=== PATIENT | male | born 1945 | race African-American/Black ===

== ENCOUNTER 2020-01-03 17:22 | Emergency (ER) | payer MEDICARE, SELFPAY ==
[2020-01-03 17:54] VITALS: BP 171/80; PULSE 92; RESP 18; TEMP 36.4; O2SAT 97; BMI 29.1
[2020-01-03 21:57] VITALS: BP 168/83; PULSE 86; RESP 17; TEMP 36.6; O2SAT 99
--- NOTE | 2020-01-03 22:05 | ED.GENADULT ---
HPI - General Adult General Chief complaint: General Medical Stated complaint: high sugar level Time Seen by Provider: 01/03/20 22:05 Source: patient and hourly sign language interpreter Mode of arrival: ambulatory Limitations: no limitations History of Present Illness HPI narrative: 74 yo male with DM ate beans and rice states his blood sugar was high - not sure how high, he had no symptoms, he drank a bottle of water, took no DM medications and came to ED in ED BS 281 complaint: after eating rice and beans blood sugar was high at home Onset (ago): minute(s) Radiation: non-radiation Severity: mild Relieving factors: none Exacerbating factors: eating Associated symptoms: denies other symptoms Treatments prior to arrival: none Related Data Home Medications Medication Instructions Recorded Confirmed aspirin 1 tab PO DAILY 01/03/20 01/03/20 furosemide 1 tab PO DAILY 01/03/20 01/03/20 insulin aspart U-100 [Novolog 2 unit SUBCUT 01/03/20 Flexpen U-100 Insulin] latanoprost 1 drp OPHTHALMIC (EYE) BEDTIME 01/03/20 01/03/20 lisinopril 1 tab PO DAILY 01/03/20 01/03/20 omeprazole 1 cap PO DAILY 01/03/20 01/03/20 pioglitazone 1 tab PO DAILY 01/03/20 01/03/20 Allergies Allergy/AdvReac Type Severity Reaction Status Date / Time No Known Allergies Allergy Mild NONE Unverified 11/22/19 17:33 Review of Systems Review of Systems: Constitutional : No Weight loss, No Fever, No Chills ENT/Mouth : No sore throat, No Rhinorrhea Eyes: No Eye Pain, No Swelling, No Redness Cardiovascular : No Chest Pain, No SOB Respiratory : No Cough, No Sputum, No Wheezing Gastrointestinal : No Nausea, No Vomiting, No Diarrhea, No Constipation, No abdominal Pain Genitourinary : No Dysuria, No Urinary Frequency, No Hematuria, Musculoskeletal : No joint pain, No Myalgias, No Joint Swelling Skin : No Skin Lesions, No rash Neuro : No Weakness, No Numbness, No Dizziness, No Headache Psych : No Anxiety/Panic, No Depression All other systems reviewed and are negative PMFSH Past Medical History Medical History Diabetes 1.5, managed as type 2 High cholesterol Hypertension Social History Social History (Updated 01/03/20 @ 22:09 by Lata Chowdhury DO) Smoking Status: Never smoker Use of substances other than those prescribed or required for medical reasons: No Advance Directives: No Advance Directives Information Provided: Yes Physical Exam Vital Signs: Vital Signs: Vital Signs Temp Pulse Resp BP Pulse Ox 01/03/20 23:01 77 16 130/73 99 01/03/20 21:57 97.8 F 86 17 168/83 H 99 01/03/20 17:54 97.5 F 92 18 171/80 H 97 Body Mass Index 29.1 Appearance: Alert. Oriented X3. No acute distress. Eyes: Pupils equal, round and reactive to light. ENT: Pharynx normal. Neck: Normal inspection. Neck supple. CVS: Normal heart rate and rhythm. Pulses normal. Respiratory: No respiratory distress. Breath sounds normal. Abdomen: Soft and nontender. Skin: Skin warm and dry. Normal skin color. Normal skin turgor. Extremities: No lower extremity edema. No calf ttp Neuro: Oriented X 3. No motor deficit. No sensory deficit. Course Course Course Narrative: repeat BS in 260s stable for DC Medical Decision Making MDM Narrative Medical decision making narrative: 74 yo male with DM, HTN, HPL ate beans and rice - BS was high, took no medications had no symptoms came to ED and BS 281, denies any complaints or infectious symptoms, no CP/SOB at this time given no complaints and BS 281 will repeat BS in 1 hour if stable can be DC home Lab Data Labs: Lab Results 01/03/20 Range/Units 23:05 POC Glucose 262 H (60-115) mg/dL Discharge Plan Discharge Clinical Impression: Diabetes Qualifiers: Diabetes mellitus type: type 2 Diabetes mellitus technician terminal and repeater insulin use: with senior care use Diabetes mellitus complication status: with hyperglycemia Qualified Code(s): E11.65 - Type 2 diabetes mellitus with hyperglycemia Patient Disposition: Home, Self-Care Instructions: Type 2 Diabetes in the Older Adult (ED) Additional Instructions: your blood sugar on arrival to the ED was 281 on recheck it was Prescriptions: No Action latanoprost 0.005 % drops 1 drp ophthalmic (eye) BEDTIME RF: 0 lisinopril 20 mg tablet 1 tab PO DAILY RF: 0 pioglitazone 45 mg tablet 1 tab PO DAILY RF: 0 aspirin 81 mg tablet,delayed release (DR/EC) 1 tab PO DAILY RF: 0 omeprazole 20 mg capsule,delayed release(DR/EC) 1 cap PO DAILY RF: 0 furosemide 20 mg tablet 1 tab PO DAILY RF: 0 insulin aspart U-100 [Novolog Flexpen U-100 Insulin] 100 unit/mL (3 mL) insulin pen 2 unit subcut RF: 0 Print Language: Yakut
[2020-01-03 23:01] VITALS: BP 130/73; PULSE 77; RESP 16; O2SAT 99
[2020-01-03 23:09] LABS: Glucose, Whole Blood 262 mg/dL (60-115)
[2020-01-04 07:26] LABS: Glucose, Whole Blood 281 mg/dL (60-115)
== END 2020-01-03 23:52 | disposition home or self-care (01) ==
PROVIDERS: Emergency Provider Emergency Medicine; PCP Internal Medicine
DX: E11.65 Type 2 diabetes mellitus with hyperglycemia (principal); Z79.899 Other long term (current) drug therapy
CPT/HCPCS: 82947; 99283; 99284

== ENCOUNTER 2021-04-12 15:06 | Emergency (ER) | payer MEDICARE, SELFPAY ==
[2021-04-12 15:09] VITALS: BP 125/55; PULSE 96; RESP 20; TEMP 37; O2SAT 97; BMI 29.2
--- NOTE | 2021-04-12 15:24 | ED_ITS ---
HPI - General Adult General Chief complaint: General Medical Stated complaint: flu symptoms, covid? Time Seen by Provider: 04/12/21 15:24 Source: patient and family (daughter) Mode of arrival: ambulatory Limitations: language barrier History of Present Illness HPI narrative: Patient is a 75 year old male presenting to the emergency department today feeling generally unwell. Patient's daughter states that the patient has been feeling generally unwell since the rest of the family tested positive for COVID- 19, 2 weeks ago. Patient's daughter states that she would like her father to be tested for COVID-19 and the flu. Patient denies any current complaints including any dizziness, lightheadedness, abdominal pain, nausea, vomiting, fever, chills, blurry vision, double vision, loss of vision, chest pain, difficulty breathing, shortness of breath, back pain, night sweats, pain with urination, increased urinary frequency, increased urinary urgency, blood in his urine or stool, syncope or a near syncopal episode, recent trauma or falls, bowel incontinence, bladder incontinence, bowel retention, bladder retention, or any other complaints at this time. Onset (ago): day(s) Related Data Home Medications Medication Instructions Recorded Confirmed aspirin 81 mg tablet,delayed 1 tab PO DAILY 01/03/20 01/03/20 release furosemide 20 mg tablet 1 tab PO DAILY 01/03/20 01/03/20 insulin aspart U-100 100 2 unit SUBCUT 01/03/20 unit/mL (3 mL) subcutaneous pen (Novolog Flexpen U-100 Insulin aspart) latanoprost 0.005 % eye 1 drp OPHTHALMIC (EYE) 01/03/20 01/03/20 drops BEDTIME lisinopril 20 mg tablet 1 tab PO DAILY 01/03/20 01/03/20 omeprazole 20 mg 1 cap PO DAILY 01/03/20 01/03/20 capsule,delayed release pioglitazone 45 mg tablet 1 tab PO DAILY 01/03/20 01/03/20 Allergies Allergy/AdvReac Type Severity Reaction Status Date / Time No Known Allergies Allergy Mild NONE Unverified 11/22/19 17:33 Review of Systems Verdana 4l Constitutional: Verdana 4d Verdana 4d Constitutional: Verdana 4d Reports no additional constitutional complaints, Denies chills, Denies fever(s) and Denies night sweats Verdana 4l Eyes: Verdana 4d Verdana 4d Eyes: Verdana 4d Reports no additional eye complaints, Denies blurry vision, Denies change in vision, Denies diplopia, Denies eye discharge, Denies loss of vision and Denies eye pain Verdana 4l ENT: Verdana 4d Denies dizziness Verdana 4l Cardiovascular: Verdana 4d Verdana 4d Cardiovascular: Verdana 4d Reports no additional cardiovascular complaints, Denies chest pain, Denies lightheadedness, Denies Loss of Consciousness and Denies dyspnea Verdana 4l Respiratory: Verdana 4d Verdana 4d Respiratory: Verdana 4d Reports no additional respiratory complaints and Denies dyspnea Verdana 4l Gastrointestinal: Verdana 4d Verdana 4d Gastrointestinal: Verdana 4d Reports no additional gastrointestinal complaints, Denies abdominal pain, Denies melena, Denies hematochezia, Denies change in bowel habits and Denies change in stool character Verdana 4l Genitourinary: Verdana 4d Verdana 4d Genitourinary: Verdana 4d Reports no additional male genitourinary complaints, Denies hematuria, Denies oliguria, Denies difficulty urinating, Denies dysuria, Denies urinary frequency, Denies urinary hesitancy, Denies urinary incontinenceincontinence and Denies urinary urgency Musculoskeletal: Musculoskeletal: Reports no additional musculoskeletal complaints, Denies numbness and Denies tingling Neurologic: Denies dizziness, Denies loss of vision, Denies numbness and Denies tingling Psychiatric: Psychiatric: Reports no additional psychiatric complaints Endocrine: Endocrine: Reports no additional endocrine complaints Hematologic/Lymphatic: Hematologic/Lymphatic: Reports no additional hematologic/lymphatic complaints Allergic/Immunologic: Allergic/Immunologic: Reports no additional allergic/immunologic complaints [facility] Past Medical History Attestation statement: The following information was validated with the patient. Source: old records reviewed Medical History Diabetes 1.5, managed as type 2 High cholesterol Hypertension Social History Social History Advance Directives: No Advance Directives Information Provided: No Physical Exam Verdana 4l Vital Signs: Verdana 4d Verdana 4d Vital Signs: Verdana 4d Verdana 4Bd Last Vital Signs Verdana 4d Corsetier New 4d Corsetier New 4d Temp 98.6 F 04/12/21 15:09 Corsetier New 4d Pulse 96 04/12/21 15:09 Corsetier New 4d Resp 20 04/12/21 15:09 BP 125/55 L 04/12/21 15:09 Pulse Ox 97 04/12/21 15:09 BMI result Body Mass Index 29.2 Const: General: cooperative, no acute distress, alert and awake Nutritional Appearance: well nourished Orientation/consciousness: patient oriented x3 Limitations: no limitations HENMT: Head: Yes normal to inspection and Yes atraumatic Ears: hearing grossly normal bilaterally and external ears normal General nose exam: Normal external nose present, no nasal discharge noted and no epistaxis Face and sinus: Yes normal facial exam, No abrasion and No laceration Mouth: Normal oral and palatal mucosa present, no drooling and no muffled voice Eyes: General: appearance normal, both eyes and all related structures Periorbital: periorbital findings normal Eyelids: Yes eyelids normal Conjunctivae: conjunctivae normal Pupils: Equal, round and reactive pupils present EOM: EOMs intact bilaterally Neck: Neck: Yes normal visual inspection, Yes full ROM and Yes no lymphadenopathy Chest: Chest palpation & inspection: normal inspection of the chest Resp: Effort & Inspection: normal respiratory effort and able to speak in complete sentences Auscultation: clear to auscultation bilaterally Cardio: Rate: regular rate Rhythm: regular rhythm GI: Inspection: Yes normal to inspection Neuro: General: patient oriented x3 and moves all extremities Cranial nerves: Yes Equal, round and reactive pupils present Cognition (Neuro): normal cognition Motor exam (neuro): 5/5 motor strength present throughout Sensory Exam: Normal double simultaneous stimulation for sensation Coordination: [id number] test normal Extrem: General: Yes normal to inspection, Yes full ROM and Yes capillary refill normal Psych: Appearance: grossly normal Mental Status: mental status grossly normal Affect: normal affect Attitude: cooperative Thought process: Normal thought process present Thought content: Normal thought content present I nsight: Good insight present (Psych) NIH Stroke Scale Internal: Initial- Upon Arrival Time: 15:24 Level of Consciousness: Alert Level of Consciousness Questions: Answers both questions correctly Level of Consciousness Commands: Performs both tasks correctly Best Gaze: Normal Visual: No visual loss Facial Palsy: Normal Motor Arm (Right): No drift Motor Arm (Left): No drift Motor Leg (Right): No drift Motor Leg (Left): No drift Limb Ataxia: Absent Sensory: Normal Best Language: No aphasia Dysarthia: Normal Extinction and Inattention: No abnormality Score: 0 Medical Decision Making MDM Narrative Medical decision making narrative: Patient is a 75 year old male presenting to the emergency department today with his daughter for COVID-19 and influenza testing. Patient's physical exam was unremarkable. Patient's rapid COVID-19 and Influenza tests were negative. I explained my physical exam findings as well as all test results to the patient and the patient's daughter. I answered all questions asked by the patient and th e patient's daughter. I stressed the importance of the patient taking his medication as prescribed. I stressed the importance of the patient following up with his primary care provider. I stressed the importance of the patient returning to the emergency department immediately if his symptoms were to worsen or if he were to develop any dizziness, shortness of breath, difficulty breathing, chest pain, blurry vision, loss of vision, nausea, vomiting, abdominal pain, fever, chills, back pain, or any other complaints. Patient and the patient's daughter verbalized agreement and understanding with this treatment plan and discharge. Differential Diagnosis Differential Diagnosis: COVID-19, influenza, viral infection Medical Records Medical records reviewed: Yes I reviewed the patient's medical records. Lab Data Lab results reviewed: Yes I reviewed the patient's lab results. Labs: Lab Results 04/12/21 04/12/21 Range/Units 15:14 15:55 COVID-19 (GENE) Negative (Negative) COVID-19 Clin Com See Note Influenza Type A (BENJAMÍN) Negative (Negative) Influenza Type B (BENJAMÍN) Negative (Negative) Influenza A & B Note See Note Discharge Plan Discharge Clinical Impression: Viral illness Patient Disposition: Home, Self-Care Instructions: Viral Syndrome (ED) Prescriptions: No Action latanoprost 0.005 % drops 1 drp ophthalmic (eye) BEDTIME 0RF lisinopril 20 mg tablet 1 tab PO DAILY 0RF pioglitazone 45 mg tablet 1 tab PO DAILY 0RF aspirin 81 mg tablet,delayed release (DR/EC) 1 tab PO DAILY 0RF omeprazole 20 mg capsule,delayed release(DR/EC) 1 cap PO DAILY 0RF furosemide 20 mg tablet 1 tab PO DAILY 0RF insulin aspart U-100 [Novolog Flexpen U-100 Insulin] 100 unit/mL (3 mL) insulin pen 2 unit subcut 0RF Referrals: Charlene Delgado MD [Primary Care Provider] - 2 days Interventions: ED Discharge Assessment Last Done: 04/12/21 17:20 Discharge Date/Time: 04/12/21 17:20 Print Language: Russian
[2021-04-12 15:34] LABS: COVID-19 Test Negative (Negative)
[2021-04-12 16:18] LABS: Influenza A Negative (Negative); Influenza B2 Negative (Negative)
== END 2021-04-12 17:20 | disposition home or self-care (01) ==
PROVIDERS: Physician Assistant Medical; Emergency Provider Emergency Medicine; PCP Internal Medicine
DX: B34.9 Viral infection, unspecified (principal); Z20.822 Contact with and (suspected) exposure to COVID-19; Z79.899 Other long term (current) drug therapy
CPT/HCPCS: 87502; 87635; 99283

== ENCOUNTER 2021-04-13 18:30 | Inpatient (IN) | payer MEDICARE, SELFPAY ==
--- NOTE | 2021-04-13 | ECG_ITS ---
Test Reason : CHES PAIN Blood Pressure : / mmHG Vent. Rate : 099 BPM Atrial Rate : 099 BPM P-R Int : 134 ms QRS Dur : 110 ms QT Int : 320 ms P-R-T Axes : 040 -09 029 degrees QTc Int : 410 ms Normal sinus rhythm Incomplete left bundle branch block Borderline ECG When compared to the previous EKG of No significant changes seen Referred By: Ceci Robles Electronically Signed By:Maximiliano Mae
--- NOTE | ~2021-04-13 | XR_ITS ---
EXAMINATION: XR CHEST CLINICAL INFORMATION: Chest pain and shortness of breath COMPARISON: None TECHNIQUE: Frontal view of the chest was obtained. FINDINGS: No significant abnormality is noted involving the heart, lungs, mediastinum, bony thorax or soft tissues. Some minimal left basilar atelectasis is present. XR/XR chest 1V IMPRESSION: No acute intrathoracic disease. Minimal left basilar atelectasis.
--- NOTE | ~2021-04-13 | CT_ITS ---
EXAMINATION: CT ABDOMEN AND PELVIS WITHOUT CONTRAST CLINICAL INFORMATION: Abdominal pain and distention. COMPARISON: CT scan of the abdomen and pelvis dated 04/14/2021. TECHNIQUE: Multidetector volumetric imaging was performed from the superior aspect of the liver through the pubic symphysis. Sagittal and coronal reformatted images were obtained on the technologist workstation. This CT examination was performed using dose optimization techniques as appropriate, variously including the following: *Automated exposure control *Adjustment of mA and/or kV according to patient size (this includes techniques or standardized protocols for targeted exams where dose is matched to indication/reason for exam; i.e. extremities or head) *Use of iterative reconstruction technique DLP: 677 mGy-cm. FINDINGS: LUNG BASES: Small left-sided pleural effusion again seen. Small right pleural effusion noted. Associated dependent atelectasis in both lower lobes noted. Three-vessel coronary artery calcifications partially included. LIVER, GALLBLADDER, AND BILIARY TREE: The liver is normal in size and attenuation. There is asymmetric mild enlargement of the left lobe of the liver and the caudate lobe with atrophy of the right lobe No focal hepatic lesion on noncontrast imaging. No biliary ductal dilatation is present. The gallbladder is unremarkable with no evidence of radiopaque gallstones, gallbladder wall thickening, or obvious pericholecystic inflammatory changes. PANCREAS: Diffusely atrophic and otherwise unremarkable. SPLEEN, ADRENAL GLANDS: A 1.6 cm right adrenal low-attenuation masses again seen, unchanged, consistent with a benign lipid rich adenoma. Left adrenal gland normal. Spleen unremarkable. KIDNEYS AND URETERS: The left kidney is asymmetrically slightly larger than the right with minimal left-sided hydronephrosis seen. There is asymmetric dilatation of the left ureter down to the ureterovesical junction, similar to prior exam. No left renal or ureteral calculi are noted. There are 2 nonobstructing upper pole right renal calculi, measuring less than 2 mm in size, unchanged. No right-sided hydronephrosis or hydroureter seen. Small locules of air are seen within the left renal pelvis and upper and mid pole left renal calyx. Mild bilateral perinephric stranding. BLADDER: Small locule of nondependent free air seen within the bladder lumen. Diffuse mild bladder wall thickening is seen with more focal nodular thickening along the posterior and left lateral margin of the bladder base approaching close to the right ureterovesical junction and extending to and beyond the left ureterovesical junction, raising the suspicion of an infiltrative bladder neoplasm. Similar findings were noted previously. PELVIC VISCERA: Unremarkable. GASTROINTESTINAL TRACT: The small and large bowel are unremarkable. The appendix is unremarkable. ABDOMINAL WALL: Small fat-containing umbilical hernia. LYMPH NODES, VASCULAR: No adenopathy. Abdominal aorta normal in caliber with mild atherosclerotic calcification seen extending into the iliac vessels. OSSEOUS STRUCTURES: There is severe degenerative disc disease at L1 to and L4-L5 and moderate degenerative disc disease at L5-S1. CT/CT abdomen pelvis wo con IMPRESSION: 1. Persistent mild left-sided hydroureteronephrosis is seen related to obstruction at the bladder level by the suspected bladder neoplasm along the posterior and left lateral margin of the bladder base. Urologic consultation is requested. 2. Nonobstructing upper pole right renal calculi. No right-sided hydroureteronephrosis. 3. Incidental finding of a stable right adrenal mass, likely an adrenal adenoma. 4. Small bilateral pleural effusions and associated bibasilar atelectasis. 5. Severe coronary artery calcifications.
--- NOTE | ~2021-04-13 | XR_ITS ---
EXAMINATION: XR CHEST CLINICAL INFORMATION: Shortness of breath COMPARISON: Previous chest x-ray April 2021 TECHNIQUE: Frontal view of the chest was obtained. FINDINGS: The cardiac silhouette is not appear enlarged. The lung volumes are low. There is question of pulmonary venous redistribution and increased perihilar markings versus changes related to low lung volumes. There is new blunting at the right lateral costophrenic angle suggestive of a new small right pleural effusion. There are degenerative changes of the spine. XR/XR chest 1V IMPRESSION: Low lung volumes. Question mild CHF versus changes due to low lung volumes.
--- NOTE | ~2021-04-13 | XR_ITS ---
EXAMINATION: XR ABDOMEN KUB CLINICAL INDICATION: Abdomen pain. Bloating COMPARISON: None TECHNIQUE: AP view of the abdomen. FINDINGS: No suspicious calcification. Moderate to marked gaseous distention throughout loops of large and small bowel to the level of the distal colon. No convincing bowel wall thickening or pneumatosis. No obvious pneumoperitoneum on this supine view. No upper or mid abdominal mass or collection demonstrated. Rounded density in the pelvis may be related to the urinary bladder. XR/XR KUB IMPRESSION: Nonspecific but unlikely to be obstructed gaseous distention.
--- NOTE | ~2021-04-13 | CT_ITS ---
EXAMINATION: CT ABDOMEN AND PELVIS WITHOUT CONTRAST CLINICAL INFORMATION: Acute kidney injury, question obstruction COMPARISON: None TECHNIQUE: Multidetector volumetric imaging was performed from the superior aspect of the liver through the pubic symphysis. Sagittal and coronal reformatted images were obtained on the technologist's workstation. This CT examination was performed using dose optimization techniques as appropriate, variously including the following: *Automated exposure control *Adjustment of mA and/or kV according to patient size (this includes techniques or standardized protocols for targeted exams where dose is matched to indication/reason for exam; i.e. extremities or head) *Use of iterative reconstruction technique DLP: 640 mGy-cm FINDINGS: LUNG BASES: Trace left pleural effusion. Bibasilar atelectasis. LIVER, GALLBLADDER, AND BILIARY TREE: The liver is normal in size, shape, and attenuation. No focal hepatic lesion or biliary ductal dilatation is present. The gallbladder is unremarkable with no evidence of radiopaque gallstones, gallbladder wall thickening, or obvious pericholecystic inflammatory changes. PANCREAS: Unremarkable. SPLEEN: Unremarkable. ADRENAL GLANDS: A 1.8 cm right adrenal nodule measures less than 10 Hounsfield units in density, most consistent with an adenoma. Left adrenal gland is unremarkable. KIDNEYS AND URETERS: There is mild bilateral hydroureteronephrosis with no obstructing calculus seen. Bilateral perinephric stranding is noted. A few tiny calculi are present in the right upper pole. Punctate calculus noted in the mid left kidney. BLADDER: Partially distended and suboptimally assessed without intravenous contrast. There is suggestion of some asymmetric wall thickening along the left posterolateral margin of the bladder including at the ureterovesicular junction and approaching the right ureterovesicular junction (image 81/100), for which a mass is a possibility. GASTROINTESTINAL TRACT: Assessment for wall thickening in some segments of the colon is limited due to luminal collapse, though no significant pericolonic stranding is seen to strongly suggest a colitis. No evidence of bowel obstruction. The appendix is unremarkable. No free fluid or free air is seen. ABDOMINAL WALL: Small fat-containing umbilical hernia. LYMPH NODES: Normal. VASCULAR: Scattered vascular calcifications are present. PELVIC VISCERA: Unremarkable. OSSEOUS STRUCTURES: Scattered degenerative changes are present in the spine. CT/CT abdomen pelvis wo con IMPRESSION: 1. Appearance of the bladder concerning for asymmetric wall thickening along the left posterolateral margin, raising suspicion for a mass. Further evaluation with cystoscopy is recommended. 2. Mild bilateral hydroureteronephrosis. No obstructing calculus identified. 3. Trace left pleural effusion. This critical result was discussed with Dr. Zoe Gilman on 04/14/2021 4:22 AM, and it was ascertained that the content and urgency of the report was understood at the time of direct communication.
--- NOTE | ~2021-04-13 | FL_ITS ---
EXAMINATION: XR FL WITH IMAGES CLINICAL INFORMATION: Cysto-retrograde with bilateral stent placement. COMPARISON: CT abdomen and pelvis 04/18/2021. TECHNIQUE: Fluoroscopy performed by Dr. Camden Winchester. Fluoroscopy Time: 35.7 seconds. DAP: 14.77 mGy. Images: 2. FINDINGS: Imaging shows contrast in the right pelvocalyceal system with a single image taken over the left renal fossa with the proximal end of a probable stent. FL/FL guidance in OR IMPRESSION: Fluoroscopy and spot films provided cysto-retrograde.
[2021-04-13 18:50] VITALS: BP 140/78; PULSE 108; RESP 19; TEMP 37.6; O2SAT 97; BMI 27.8
[2021-04-13 22:08] LABS: Hematocrit 33.1 % (42.0-52.0); Hemoglobin 11.4 g/dl (14.0-18.0); Mean Corpuscular HGB Conc 34.4 g/dl (31.0-36.0); Mean Corpuscular Hemoglobin 31.2 pg (27.0-33.0); Mean Corpuscular Volume 90.7 fL (80.0-98.0); Mean Platelet Volume 10.6 fL (9.4-12.4); Red Blood Count 3.65 X10*6/uL (4.60-5.80); Red Cell Distribution Width 14.1 % (11.0-16.0); White Blood Count 11.1 X10*3/uL (4.8-10.8)
[2021-04-13 22:31] LABS: Lymphocytes Absolute Manual 0.4 X10*3/uL (1.2-4.9); Lymphocytes Percent Manual 4 % (20-40); Monocytes Percent Manual 18 % (2-11); Neutrophils Percent Manual 78 % (45-73); Platelet Estimate NORMAL (NORMAL); RBC Morphology NORMAL
[2021-04-13 22:32] LABS: Platelet Morphology Comment NORMAL; Troponin-I High Sensitivity 20.9 ng/L (<3.5-35.0)
[2021-04-13 22:33] LABS: Neutrophils Absolute Manual 8.7 X10*3/uL (2.0-8.3)
[2021-04-13 22:39] LABS: Anion Gap 18 (12-20); Blood Urea Nitrogen 105 mg/dL (9-16); Calcium 8.5 mg/dL (8.4-10.2); Carbon Dioxide 22 mmol/L (22-29); Chloride 97 mmol/L (96-108); Creatinine Clr Calc Pharmacy 15.4; Estimated Glomerular Filt Rate 15; Glucose Random 386 mg/dL (60-115); Potassium 4.9 mmol/L (3.3-5.1); Sodium 132 mmol/L (135-145)
[2021-04-13 23:58] VITALS: BP 135/76; PULSE 113; RESP 18; O2SAT 97
--- NOTE | 2021-04-14 00:01 | ED_ITS ---
HPI - Chest Pain General Chief Complaint: Chest Pain Stated Complaint: chest pain Time Seen by Provider: 04/14/21 00:29 Source: patient Mode of arrival: ambulatory Limitations: language barrier History of Present Illness HPI narrative: 75-year-old male presents with 1 week of chest pain radiating to his back and ne ck for the past 2 weeks. States that it is squeezing pain and is 10/10. Also complains of bilateral lower abdominal pain for approximately 2 weeks with intermittent nausea. Does not report any fevers, chills, nausea vomiting or diarrhea. MD complaint: chest pain Onset (ago): week(s) (2) Timing of current episode: episodic Prior episodes: Yes Onset: during rest Pain location: substernal Pain radiation: back and neck Severity: severe Pain scale (0-10): 10 Quality: tightness Relieving factors: nothing Associated symptoms: nausea Treatment prior to arrival: none Risk Factors Coronary artery disease risk factors: diabetes and hypertension Thoracic aortic dissection risk factors: longstanding hypertension Related Data Home Medications Medication Instructions Recorded Confirmed aspirin 81 mg tablet,delayed 1 tab PO DAILY 01/03/20 01/03/20 release furosemide 20 mg tablet 1 tab PO DAILY 01/03/20 01/03/20 insulin aspart U-100 100 unit/mL 2 unit SUBCUT 01/03/20 (3 mL) subcutaneous pen (Novolog Flexpen U-100 Insulin aspart) latanoprost 0.005 % eye drops 1 drp OPHTHALMIC (EYE) BEDTIME 01/03/20 01/03/20 lisinopril 20 mg tablet 1 tab PO DAILY 01/03/20 01/03/20 omeprazole 20 mg capsule,delayed 1 cap PO DAILY 01/03/20 01/03/20 release pioglitazone 45 mg tablet 1 tab PO DAILY 01/03/20 01/03/20 Allergies Allergy/AdvReac Type Severity Reaction Status Date / Time No Known Allergies Allergy Mild NONE Verified 04/13/21 18:49 Review of Systems Review of Systems: Constitutional: No Weight loss, No Fever, No Chills, No Night Sweats, No Fatigue, No Malaise ENT/Mouth: No Hearing loss, No Ear Pain, No Nasal Congestion, No Sinus Pain, No Hoarseness, No sore throat, No Rhinorrhea, No Swallowing Difficulty Eyes: No Eye Pain, No Swelling, No Redness, No Foreign Body, No Discharge, No Vision Changes Cardiovascular: Positive Chest Pain, no SOB, no Dyspnea on Exertion, No Orthopnea, No Edema, No Palpitations Respiratory: No Cough, No Sputum, No Wheezing, No Smoke Exposure, No Dyspnea Gastrointestinal: Positive Nausea, No Vomiting, No Diarrhea, positive abdominal Pain, No Hematochezia, No Melena Genitourinary: No irregular bleeding, No Dysuria, No Urinary Frequency, No Hematuria, No Urinary Incontinence, No Urgency, No Flank Pain, No Urinary Flow Changes, No Hesitancy Musculoskeletal: No joint pain, No Myalgias, No Joint Swelling Skin: No Skin Lesions, No rash Neuro: No Weakness, No Numbness, No Paresthesias, No Loss of Consciousness, No Dizziness, No Headache Psych: No Anxiety/Panic, No Depression, No SI/HI/AH/VH Heme/Lymph: No Bruising, No Bleeding,No Lymphadenopathy Endocrine: No Polyuria, No Polydipsia, No Temperature Intolerance Yes all other systems are reviewed and are negative [facility] Past Medical History Attestation statement: The following information was validated with the patient. Source: old records reviewed Medical History Diabetes 1.5, managed as type 2 High cholesterol Hypertension Social History Social History Advance Directives: No Physical Exam Vital Signs: Vital Signs: Last Vital Signs Temp 99.7 F 04/13/21 18:50 Pulse 103 H 04/14/21 01:41 Resp 26 H 04/14/21 01:41 BP 111/62 04/14/21 01:41 Pulse Ox 97 04/13/21 23:58 BMI result Body Mass Index 27.8 Appearance: Alert. Oriented X3. Moderate distress. Eyes: Pupils equal, round and reactive to light. EOMI. Sclera nonicteric. ENT: Pharynx normal. Dry mucous membranes. Neck: Normal inspection. Neck supple. CVS: Tachycardic heart rate and rhythm. AFib RVR Respiratory: No respiratory distress. Breath sounds normal. Abdomen: Soft and bilateral CVA tenderness. No tenderness to abdominal palpation. Skin: Skin warm and dry. Normal skin color. Normal skin turgor. Extremities: No lower extremity edema. Gait well-balanced well coordinated. Neuro: No motor deficit. No sensory deficit. Cranial nerves 2-12 intact. Course Course Course Narrative: 75-year-old male presents with chest pain radiating to the back of his neck for approximately 2 weeks. EKG completed while he was in the emergency department waiting room which indicated a normal sinus rhythm with left bundle-branch block at a rate of 99. Upon his presentation to the emergency department room, patient noted to be in AFib with RVR, repeat EKG ordered at this time. 00:35 repeat EKG indicates AFib with RVR. Lopressor 5 IV push ordered 00:50 repeat dose of Lopressor 5 mg IV push. Repeat EKG ordered indicates a flutter with variable AV block. Troponin is pending. Corrected sodium is 137, BUN 105, creatinine 3.99. Will continue to resuscitate with fluids for YESSENIA. Order for abdominal CT to rule out obstruction versus pyelo. Discussion with hospitalist, plan of care is to admit for YESSENIA and AFib. interpreter for the deaf and Sid utilized for all correspondence. Consultations Consultation #1: Andrea Time: 01:59 MDM - Chest Pain MDM Narrative Medical decision making narrative: AFib, YESSENIA, UTI, AAA Differential Diagnosis Differential diagnosis: Likely stable angina, unstable angina pectoris, atypical chest pain, st elevation myocardial infarction, costochondritis and chest pain Medical Records Data Attestation: I reviewed the patient's medical records. Lab Data Attestation: I reviewed the patient's lab results. Result diagrams: 04/13/21 22:04 04/13/21 22:04 Labs: Lab Results 04/13/21 04/13/21 04/13/21 Range/Units 22:04 22:04 22:04 WBC 11.1 H (4.8-10.8) X10*3/uL RBC 3.65 L (4.60-5.80) X10*6/uL Hgb 11.4 L (14.0-18.0) g/dl Hct 33.1 L (42.0-52.0) % MCV 90.7 (80.0-98.0) fL MCH 31.2 (27.0-33.0) pg MCHC 34.4 (31.0-36.0) g/dl RDW 14.1 (11.0-16.0) % Plt Count TNP MPV 10.6 (9.4-12.4) fL Immature Gran % (Auto) Cancelled Neut % (Auto) Cancelled Lymph % (Auto) Cancelled [place] % (Auto) Cancelled Eos % (Auto) Cancelled Baso % (Auto) Cancelled Lymph # (Auto) Cancelled [place] # (Auto) Cancelled Eos # (Auto) Cancelled Baso # (Auto) Cancelled Abs Immat Gran (auto) Cancelled Absolute Neuts (auto) Cancelled Absolute Nucleated RBC 0.000 (0.0-0.012) X10*3/uL Nucleated RBC % (auto) 0.0 (0.0-0.2) /100WBC Neutrophils % (Manual) 78 H (45-73) % Lymphocytes % (Manual) 4 L (20-40) % Monocytes % (Manual) 18 H (2-11) % Abs Neuts (Manual) 8.7 H (2.0-8.3) X10*3/uL Lymphocytes # (Manual) 0.4 L (1.2-4.9) X10*3/uL Monocytes # (Manual) 2.0 H (0.1-1.2) X10*3/uL Platelet Estimate NORMAL (NORMAL) Plt Morphology Comment NORMAL RBC Morphology NORMAL Sodium 132 L (135-145) mmol/L Potassium 4.9 (3.3-5.1) mmol/L Chloride 97 (96-108) mmol/L Carbon Dioxide 22 (22-29) mmol/L Anion Gap 18 (12-20) BUN 105 H (9-16) mg/dL Creatinine 3.99 H (0.5-1.4) mg/dL Estim Creat Clear Calc 15.4 Estimated GFR 15 Random Glucose 386 H* (60-115) mg/dL Calcium 8.5 (8.4-10.2) mg/dL Magnesium (1.6-2.6) mg/dL Troponin I High Sens 20.9 (<3.5-35.0) ng/L B-Natriuretic Peptide 110 H (<100) pg/mL 04/14/21 04/14/21 Range/Units 00:19 00:19 WBC (4.8-10.8) X10*3/uL RBC (4.60-5.80) X10*6/uL Hgb (14.0-18.0) g/dl Hct (42.0-52.0) % MCV (80.0-98.0) fL MCH (27.0-33.0) pg MCHC (31.0-36.0) g/dl RDW (11.0-16.0) % Plt Count MPV (9.4-12.4) fL Immature Gran % (Auto) Neut % (Auto) Lymph % (Auto) [place] % (Auto) Eos % (Auto) Baso % (Auto) Lymph # (Auto) [place] # (Auto) Eos # (Auto) Baso # (Auto) Abs Immat Gran (auto) Absolute Neuts (auto) Absolute Nucleated RBC (0.0-0.012) X10*3/uL Nucleated RBC % (auto) (0.0-0.2) /100WBC Neutrophils % (Manual) (45-73) % Lymphocytes % (Manual) (20-40) % Monocytes % (Manual) (2-11) % Abs Neuts (Manual) (2.0-8.3) X10*3/uL Lymphocytes # (Manual) (1.2-4.9) X10*3/uL Monocytes # (Manual) (0.1-1.2) X10*3/uL Platelet Estimate (NORMAL) Plt Morphology Comment RBC Morphology Sodium (135-145) mmol/L Potassium (3.3-5.1) mmol/L Chloride (96-108) mmol/L Carbon Dioxide (22-29) mmol/L Anion Gap (12-20) BUN (9-16) mg/dL Creatinine (0.5-1.4) mg/dL Estim Creat Clear Calc Estimated GFR Random Glucose (60-115) mg/dL Calcium (8.4-10.2) mg/dL Magnesium 3.1 H (1.6-2.6) mg/dL Troponin I High Sens 18.1 (<3.5-35.0) ng/L B-Natriuretic Peptide (<100) pg/mL Imaging Data Chest x-ray: Attestation: I personally reviewed and interpreted this imaging study as follows: Radiologist's impression: EXAMINATION: XR CHEST CLINICAL INFORMATION: Chest pain and shortness of breath COMPARISON: None TECHNIQUE: Frontal view of the chest was obtained. FINDINGS: No significant abnormality is noted involving the heart, lungs, mediastinum, bony thorax or soft tissues. Some minimal left basilar atelectasis is present. XR/XR chest 1V IMPRESSION: No acute intrathoracic disease. Minimal left basilar atelectasis. ? ECG Data ECG #1: Attestation: I personally reviewed and interpreted this ECG as follows: ECG interpretation date: 04/13/21 ECG interpretation time: 18:53 Prior ECG tracings: not available for review Interpretation: Ventricular rate 99 beats per minute, SD 134, QRS 110, QT 320, QTC 410, normal sinus rhythm incomplete left bundle branch block borderline EKG ECG #2: Attestation: I personally reviewed and interpreted this ECG as follows: ECG interpretation date: 04/14/21 ECG interpretation time: 00:24 Prior ECG tracings: available for review Interpretation: Ventricular rate 126 beats per minute, QRS 104, QT 300, QTC 434, AFib with RVR response with premature ventricular or aberrant conducted complexes nonspecific ST and T-wave abnormalities no indication of ischemia ST elevation or depression at this time. ECG #3: Attestation: I personally reviewed and interpreted this ECG as follows: ECG interpretation date: 04/14/21 ECG interpretation time: 01:15 Prior ECG tracings: available for review Interpretation: Ventricular rate 100 beats per minute, QRS 110, QT 316, QTC 407, a flutter with variable AV block, incomplete left bundle branch, no indication of ST elevation or depression Critical Care Time Critical Care Time Critical Care Time: Yes Total Critical Care Time: 45 Attestation: I have personally provided critical care time exclusive of time spent on separately billable procedures. Time includes review of laboratory data, radiology results, discussion with consultants, and monitoring for potential decompensation. Interventions were performed as documented. Discharge Plan Discharge Prescriptions: No Action latanoprost 0.005 % drops 1 drp ophthalmic (eye) BEDTIME 0RF lisinopril 20 mg tablet 1 tab PO DAILY 0RF pioglitazone 45 mg tablet 1 tab PO DAILY 0RF aspirin 81 mg tablet,delayed release (DR/EC) 1 tab PO DAILY 0RF omeprazole 20 mg capsule,delayed release(DR/EC) 1 cap PO DAILY 0RF furosemide 20 mg tablet 1 tab PO DAILY 0RF insulin aspart U-100 [Novolog Flexpen U-100 Insulin] 100 unit/mL (3 mL) insulin pen 2 unit subcut 0RF
--- NOTE | 2021-04-14 00:24 | ECG_ITS ---
Test Reason : CHEST PAIN Blood Pressure : / mmHG Vent. Rate : 126 BPM Atrial Rate : 000 BPM P-R Int : 000 ms QRS Dur : 104 ms QT Int : 300 ms P-R-T Axes : 000 -07 186 degrees QTc Int : 434 ms Atrial fibrillation with rapid ventricular response with premature ventricular or aberrantly conducted complexes Nonspecific ST and T wave abnormality Abnormal ECG When compared to the previous EKG of Atrial fibrillation Present Referred By: Ceci Robles Electronically Signed By:Maximiliano Mae
[2021-04-14] MEDS: 0.9 % Sodium Chloride 1,000 ML 999 ML IVCONT ×2 (00:29→01:22)
--- NOTE | 2021-04-14 00:37 | PC.NURSE ---
Repeat EKG ordered and completed per Ceci MARSHALL.
[2021-04-14 00:47] LABS: Troponin-I High Sensitivity 18.1 ng/L (<3.5-35.0)
[2021-04-14 00:53] LABS: Magnesium 3.1 mg/dL (1.6-2.6)
[2021-04-14] MEDS: Metoprolol Tartrate 5 MG/5 ML VIAL IVPUSH ×2 (01:02→01:17)
--- NOTE | 2021-04-14 01:06 | ECG_ITS ---
Test Reason : CHEST PAIN Blood Pressure : / mmHG Vent. Rate : 100 BPM Atrial Rate : 300 BPM P-R Int : 000 ms QRS Dur : 110 ms QT Int : 316 ms P-R-T Axes : 263 -11 -25 degrees QTc Int : 407 ms Atrial fibrillation Incomplete left bundle branch block Abnormal ECG When compared to the previous EKG of No significant changes when compared with the previous EKG of Referred By: Ceci Robles Electronically Signed By:Maximiliano Mae
[2021-04-14 01:41] VITALS: BP 111/62; PULSE 103; RESP 26
[2021-04-14 01:49] LABS: B Type Natriuretic Peptide 110 pg/mL (<100)
--- NOTE | 2021-04-14 01:52 | PC.NURSE ---
POC completed 258 RN aware and GENETIC SCIENTIST aware.
--- NOTE | 2021-04-14 01:53 | P.HPHOSP_ITS ---
History of Present Illness Date of Service: 04/14/21 Chief Complaint: chest pain this is a 75-year-old male Salvadorean-speaking only with history of diabetes, hypertension, hyperlipidemia presents to the hospital with complaints of chest pain. Patient is a very vague historian, history is obtained with the help of an manager professional development through the iPad so therefore was difficult to get accurate information from him. According to him he has been having chest pain for 2 weeks, intermittent, localized to the mid sternal, 10/10, radiating to his throat, as well as his back. He is also complaining of palpitations, denies any shortness of breath, no cough, denies any headache no change in vision, no abdominal pain nausea or vomiting, no diarrhea constipation, no urinary symptoms and no lower extremity edema. patient is not familiar with his past medical history and is also having difficulty with his medication list. He does not know what medication he takes and what he takes some 4. On arrival to the ED Patient found to have a heart rate of 108 in AFib with RVR, otherwise hemodynamically stable. Labs are significant for WBC count of 11.1, hemoglobin of 11.4, BUN of 105, creatinine of 3.99 with a baseline around 2.0-2.5, , glucose of 386, BNP of 110, UA positive for blood patient's abdominal pelvic CT showed appearance of the bladder concerning for asymmetric wall thickening along the left posterolateral margin raising suspicion for a mass. Mild bilateral hydroureteronephrosis with no obstructing calculus. Patient given 2 doses of IV Lopressor with improvemen Review of Systems Review of Systems: Yes all other systems are reviewed and are negative [facility] Medical History (Updated 04/14/21 @ 06:01 by Hilary Mendez MD) Diabetes 1.5, managed as type 2 High cholesterol Hypertension Family History (Updated 04/14/21 @ 05:59 by Hilary Mendez MD) Other No family history of coronary artery disease Surgical History (Updated 04/14/21 @ 06:00 by Hilary Mendez MD) No pertinent past surgical history Social History (Updated 04/14/21 @ 06:00 by Hilary Mendez MD) Alcohol intake: never Patient Tobacco Use Status: Former Tobacco user Use of substances other than those prescribed or required for medical reasons: No Advance Directives: No Meds Allergies Allergy/AdvReac Type Severity Reaction Status Date / Time No Known Allergies Allergy Mild NONE Verified 04/13/21 18:49 Active Medications: Current Medications Acetaminophen (Acetaminophen 325 Mg Tablet) 650 mg PO Q6H PRN PRN Reason: Pain, Mild (Pain Scale 1-3) Docusate Sodium (Docusate Sodium 100 Mg Capsule) 100 mg PO DAILY PRN PRN Reason: Constipation Sodium Chloride (Ns) 1,000 mls @ 999 mls/hr IVCONT .Q1H1M [facility] Stop: 04/14/21 02:15 Last Admin: 04/14/21 01:22 Dose: 999 mls/hr Documented by: Ondansetron HCl (Ondansetron Hcl 4 Mg/2 Ml Vial) 4 mg IVPUSH Q8H PRN PRN Reason: Nausea and Vomiting Sodium Chloride (0.9 % Sodium Chloride Flush 3 Ml Syringe) 3 ml IVFLUSH QSHIFT [facility] Home Medications Medication Instructions Recorded Confirmed Last Taken Type aspirin 81 mg tablet,delayed 1 tab PO DAILY 01/03/20 04/14/21 Unknown History release furosemide 20 mg tablet 1 tab PO DAILY 01/03/20 04/14/21 Unknown History insulin aspart U-100 100 unit/mL 2 unit SUBCUT DAILY 01/03/20 04/14/21 Unknown History (3 mL) subcutaneous pen (Novolog Flexpen U-100 Insulin aspart) latanoprost 0.005 % eye drops 1 drp OPHTHALMIC (EYE) BEDTIME 01/03/20 04/14/21 Unknown History lisinopril 20 mg tablet 1 tab PO DAILY 01/03/20 04/14/21 Unknown History omeprazole 20 mg capsule,delayed 1 cap PO DAILY 01/03/20 04/14/21 Unknown History release pioglitazone 45 mg tablet 1 tab PO DAILY 01/03/20 04/14/21 Unknown History Physical Exam Vital Signs and Narrative: Vital Signs: Last Vital Signs Temp 99.7 F 04/13/21 18:50 Pulse 103 H 04/14/21 01:41 Resp 26 H 04/14/21 01:41 BP 111/62 04/14/21 01:41 Pulse Ox 97 04/13/21 23:58 BMI result Body Mass Index 27.8 Const: General: cooperative and no acute distress Orientation/consciousness: patient oriented x3 Eyes: General: appearance normal, both eyes and all related structures Pupils: Equal, round and reactive pupils present Resp: Effort & Inspection: normal respiratory effort Auscultation: clear to auscultation bilaterally Cardio: Other: tachycardic, irregular rhythm GI: Palpation (GI): Soft to palpation Auscultation: normal bowel sounds Skin: General skin exam: no rashes or lesions noted Neuro: General: patient oriented x3 Cranial nerves: Yes Equal, round and reactive pupils present Cognition (Neuro): normal cognition Extrem: General: Yes normal to inspection and Yes no pedal edema Results Labs CBC and Chem 7: 04/13/21 22:04 04/13/21 22:04 Labs: Laboratory Results - last 24 hr 04/13/21 04/13/21 04/13/21 22:04 22:04 22:04 MCV 90.7 MCH 31.2 MCHC 34.4 RDW 14.1 Plt Count TNP MPV 10.6 Immature Gran % (Auto) Cancelled Neut % (Auto) Cancelled Lymph % (Auto) Cancelled [place] % (Auto) Cancelled Eos % (Auto) Cancelled Baso % (Auto) Cancelled Lymph # (Auto) Cancelled [place] # (Auto) Cancelled Eos # (Auto) Cancelled Baso # (Auto) Cancelled Abs Immat Gran (auto) Cancelled Absolute Neuts (auto) Cancelled Absolute Nucleated RBC 0.000 Nucleated RBC % (auto) 0.0 Neutrophils % (Manual) 78 H Lymphocytes % (Manual) 4 L Monocytes % (Manual) 18 H Abs Neuts (Manual) 8.7 H Lymphocytes # (Manual) 0.4 L Monocytes # (Manual) 2.0 H Platelet Estimate NORMAL Plt Morphology Comment NORMAL RBC Morphology NORMAL Anion Gap 18 Estim Creat Clear Calc 15.4 Estimated GFR 15 Random Glucose 386 H* Calcium 8.5 Magnesium B-Natriuretic Peptide 110 H 04/14/21 00:19 MCV MCH MCHC RDW Plt Count MPV Immature Gran % (Auto) Neut % (Auto) Lymph % (Auto) [place] % (Auto) Eos % (Auto) Baso % (Auto) Lymph # (Auto) [place] # (Auto) Eos # (Auto) Baso # (Auto) Abs Immat Gran (auto) Absolute Neuts (auto) Absolute Nucleated RBC Nucleated RBC % (auto) Neutrophils % (Manual) Lymphocytes % (Manual) Monocytes % (Manual) Abs Neuts (Manual) Lymphocytes # (Manual) Monocytes # (Manual) Platelet Estimate Plt Morphology Comment RBC Morphology Anion Gap Estim Creat Clear Calc Estimated GFR Random Glucose Calcium Magnesium 3.1 H B-Natriuretic Peptide Imaging Radiologist's Impressions: Impressions Chest X-Ray 04/13/21 19:35 IMPRESSION: No acute intrathoracic disease. Minimal left basilar atelectasis. Assessment and Plan (1) Atrial fibrillation with RVR: Status: Acute (2) Bladder outlet obstruction: Status: Acute (3) Chest pain: Status: Acute (4) YESSENIA (acute kidney injury): Status: Acute Plan 75-year-old male with past medical history of hypertension, diabetes who presents to the hospital with complaints of chest pain found to have AFib with RVR as well as YESSENIA # AFib with RVR - chadsVasc score 4 - patient denies history or at least he states that he has not known of hx of A fib - - will obtain Echo - consult cardiology - will start him on eliquis until seen by cardiology - troponin -ve # Chest pain - likely due to tachycardia - no ekg suggestive of ACS - no elevated trop - will obtain echo - cardiology consulted # YESSENIA - likely 2/2 postrenal with bladder outlet obstruction - CT abd showing asymmetrical bladder wall thickening cocerning for malignancy - IV fluids follow BMP # Bldder mass? - CT pelvic as above - urology consult # HTN - stable - will hold lisinopril given YESSENIA # CHF? - on Lasix at home - will hold Lasix in the setting of YESSENIA - does not appear to be in fluid overload - monitor volume status # diabetes - hold oral anti hyperglycemics - will start on low-dose sliding scale insulin - diabetic diet DVT prophylaxis: Eliquis Quality Stroke Does the patient have a stroke diagnosis?: No VTE Prior VTE?: No VTE Risk Level:: Medical - moderate - high VTE Device Contraindication: Treatment Not Indicated VTE Drug Contraindication: N/A - Med Ordered
[2021-04-14 01:55] LABS: Glucose, Whole Blood 258 mg/dL (60-115)
[2021-04-14 02:06] LABS: COVID-19 Test Negative (Negative)
[2021-04-14 02:14] LABS: Troponin-I High Sensitivity 17.1 ng/L (<3.5-35.0)
[2021-04-14 03:03] LABS: Appearance Urine CLEAR; Color Urine YELLOW; Glucose Urine UA >=1000 MG/DL (NEG); Leukocyte Esterase Urine NEG (NEG); Nitrite Urine NEG (NEG); PH 5.5 (5.0-8.0); Urine Blood 1+ (NEG); Urine Ketones NEG (NEG); Urine Protein TRACE MG/DL (NEG-TRACE)
[2021-04-14 03:09] LABS: Amorphous Sediment Urine 2+ /LPF; Bacteria Urine 2+ /LPF; RBC Urine 0-2 /HPF (0); Squamous Epithelial Cell Urine 2+ /LPF
--- NOTE | 2021-04-14 03:32 | PC.NURSE ---
I assumed care of this pt at 0030. The pt presented for evaluation of chest pain x 1-2 weeks. On arrival he is noted to be in Afib, rate 110's-130's. He presents alert, oriented x 3, withut resp. distress - respirations are non-labored, RR WNL, no cyanosis, he speaks in full sentences (bengali speaking). IV access and labs were obtained. With JACOB Ornelas at bedside I administered Metoprolol 5mg IVP x 2 and his HR responded by decreasing to low 100's/ JACOB Ornelas aware. Pt has been admitted to hospital and verbalizes an understanding of this. Will continue to monitor Matthew.
[2021-04-14 05:34] VITALS: BP 95/57; PULSE 79; RESP 17; O2SAT 99
[2021-04-14 06:40] LABS: MANUAL DIFF FLAG NO
[2021-04-14 06:49] LABS: Basophils Percent Auto 0.4 % (0-2); Eosinophils Absolute Auto 0.1 X10*3/uL (0.0-0.4); Eosinophils Percent Auto 0.5 % (0-4); Hematocrit 32.1 % (42.0-52.0); Hemoglobin 10.7 g/dl (14.0-18.0); Imm Gran Abs Auto 0.41 X10*3/uL (0.00-0.03); Imm Gran Pct Auto 3.7 % (0.0-0.4); Lymphocytes Absolute Auto 0.6 X10*3/uL (1.2-4.9); Lymphocytes Percent Auto 5.8 % (20-40); Mean Corpuscular HGB Conc 33.3 g/dl (31.0-36.0); Mean Corpuscular Hemoglobin 30.4 pg (27.0-33.0); Mean Corpuscular Volume 91.2 fL (80.0-98.0); Mean Platelet Volume 10.7 fL (9.4-12.4); Monocytes Absolute Auto 1.1 X10*3/uL (0.1-1.2); Monocytes Percent Auto 9.8 % (2-11); Neutrophils Absolute Auto 8.8 x10*3/uL (2.0-8.3); Neutrophils Percent Auto 79.8 % (45-73); Platelet Count 207 X10*3/uL (160-400); Red Blood Count 3.52 X10*6/uL (4.60-5.80); Red Cell Distribution Width 14.3 % (11.0-16.0)
[2021-04-14 07:23] LABS: Anion Gap 16 (12-20); Blood Urea Nitrogen 94 mg/dL (9-16); Calcium 7.9 mg/dL (8.4-10.2); Carbon Dioxide 19 mmol/L (22-29); Chloride 108 mmol/L (96-108); Creatinine Clr Calc Pharmacy 17.8; Estimated Glomerular Filt Rate 17; Glucose Random 236 mg/dL (60-115); Potassium 4.8 mmol/L (3.3-5.1); Sodium 138 mmol/L (135-145)
[2021-04-14 07:31] LABS: Glucose, Whole Blood 204 mg/dL (60-115)
[2021-04-14] MEDS: Omeprazole 20 MG CAPSULE.DR PO (07:51)
[2021-04-14] MEDS: Apixaban 5 MG TABLET PO ×2 (07:51→20:06)
[2021-04-14] MEDS: Aspirin Enteric Coated 81 MG TABLET.DR PO (07:52)
[2021-04-14] MEDS: Insulin Lispro 100 UNIT/ML 3 ML VIAL SUBCUT ×3 (07:52→20:07)
[2021-04-14 08:12] VITALS: BP 112/52; PULSE 100; RESP 21; O2SAT 95
--- NOTE | 2021-04-14 08:26 | PHA.MEDREC ---
Pharmacy Consult ? Medication Reconciliation RN completed med rec, pharmacy reviewed and updated. Contacted .
--- NOTE | 2021-04-14 08:30 | CA_ITS ---
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 - Diastolic function is indeterminate on the basis of available data. - Normal right ventricular cavity size and systolic function. Findings Procedure Information Contrast agent, definity, is being given per protocol without apparent complications. Left Ventricle Normal left ventricular size and systolic function. There is mildly increased left ventricular wall thickness. The visually estimated ejection fraction is between 55-60%. There is no evidence of regional wall motion abnormalities. Diastolic function is indeterminate on the basis of available data. Right Ventricle Normal right ventricular cavity size and systolic function. Atria Both atria are normal in size. Aortic Valve Normal aortic valve structure and function. There is no aortic valve stenosis. There is no aortic valve regurgitation. Mitral Valve Normal mitral valve structure and function. There is no mitral valve regurgitation. There is no mitral valve stenosis. Pulmonic Valve The pulmonic valve is likely normal. Tricuspid Valve Normal tricuspid valve structure and function. There is trace tricuspid valve regurgitation. Tricuspid regurgitation envelope is inadequate for calculation of right ventricular systolic pressure. Normal right atrial pressure. Great Vessels All visible segments of the aorta are normal in size. The visualized portions of the pulmonary artery and branches are normal. Venous The inferior vena cava is normal in size and collapses greater than 50% with inspiration. Pericardium/Pleural There is no evidence of pericardial effusion. Prior Study Comparison No significant change compared to prior study dated: 07/17/2019. Measurements 2D Linear Measurements IVSd: 1.06 0.6-0.9/0.6-1.0 cm LVIDd: 4.21 3.9-5.3/4.2-5.9 cm LVIDd Index: 2.30 2.4-3.2/2.2-3.1 cm/m2 LVIDs: 2.76 2.0-3.6 cm LVPWd: 1.06 0.7-1.1 cm Ao Root: 3.10 2.1-3.5 cm LA Diam: 3.70 2.7-3.8/3.0-4.0 cm LAIDs Index: 2.02 1.5-2.3 cm/m2 LV Mass: 186.18 67-162/88-224 g LV Mass Index: 101.74 43-95/49-115 g/m2 LVOT Diam: 2.00 3.0+(-)1.3 cm Mitral Valve MV Pk E: 1.02 MV Decel Time: 120.00 E'Lateral: 16.40 E'Medial: 9.68 E/E' Med: 10.50 E/E' Lat: 6.20 PHT: 35.00 MVA PHT: 6.29 Decel [place]: 8.55 Aortic Valve AoV Pk Yao: 1.18 AoV Mn Yao: 0.85 AoV VTI: 0.21 AoV Pk Grad: 6.00 Aov Mn Grad: 3.00 MINERVA Cont.VTI: 2.21 LVOT LVOT Pk Yao: 0.88 LVOT Mn Yao: 0.61 LVOT VTI: 0.15 LVOT Pk Grad: 3.00 LVOT Mn Grad: 2.00 LVOT Diam: 2.00 LVOT Area: 3.14 Diastolic Function MV Pk E: 1.02 E'Medial: 9.68 E/E' Med: 10.50 E' Laterial: 16.40 E/E' Lat: 6.20 Tricuspid Valve TR Pk Yao: 2.20 TR Pk Grad: 19.00 Great Vessels Aorta Ao Root-2D: 3.10 2.0-3.7 cm Ao Asc: 2.40 2.1-3.4 cm Pulmonary Valve PV Pk Yao: 0.95 Peak PV Grad: 4.00 Updated in Other Vendor System with Status of Final Maximiliano Mae MD electronically signed on 04/14/2021 9:13:45 PM with status of Final
[2021-04-14] MEDS: 0.9 % Sodium Chloride Flush 3 ML SYRINGE IVFLUSH (08:55)
[2021-04-14] MEDS: 0.9 % Sodium Chloride 1,000 ML 100 ML IVCONT ×2 (09:07→18:46)
[2021-04-14 10:57] VITALS: BP 115/56; PULSE 83; RESP 22; TEMP 37.8; O2SAT 96
--- NOTE | 2021-04-14 11:32 | P.PNIM_ITS ---
Subjective Subjective Date of Service: 04/20/21 Review of Systems Follow up Afib rvr and YESSENIA Doing ok laying in bed denied pain Physical Exam Vital Signs: Vital Signs: Last Vital Signs Temp 100.1 F 04/14/21 10:57 Pulse 83 04/14/21 10:57 Resp 22 H 04/14/21 10:57 BP 115/56 L 04/14/21 10:57 Pulse Ox 96 04/14/21 10:57 BMI result Body Mass Index 27.8 Appearing in no acute distress lung sounds are clear to auscultation heart regular rate rhythm, clear S1, S2 positive bowel sounds, abdomen is soft, nontender neuro patient is alert x3, no focal deficits Objective Data Active Medications Acetaminophen (Acetaminophen 325 Mg Tablet) 650 mg PO Q6H PRN PRN Reason: Pain, Mild (Pain Scale 1-3) Apixaban (Apixaban 5 Mg Tablet) 5 mg PO BID [facility]END[facility] TO [facility] Last Admin: 04/14/21 07:51 Dose: 5 mg Documented by: KATIE Aspirin (Aspirin Enteric Coated 81 Mg Tablet.) 81 mg PO DAILY [facility] Last Admin: 04/14/21 07:52 Dose: 81 mg Documented by: KATIE Dextrose (Dextrose 50 % 25 Gm/50 Ml Syringe) 25 gm IVPUSH Q15M PRN; Protocol PRN Reason: per Hypoglycemia Standing Ord. Docusate Sodium (Docusate Sodium 100 Mg Capsule) 100 mg PO DAILY PRN PRN Reason: Constipation Glucose (Glucose Gel 15 Gm Gel..Gram.) 15 gm PO Q15M PRN; Protocol PRN Reason: per Hypoglycemia Standing Ord. Sodium Chloride (Ns) 1,000 mls @ 100 mls/hr IVCONT .Q10H [facility] TO [facility] Last Admin: 04/14/21 09:07 Dose: 100 mls/hr Documented by: KATIE Insulin Human Lispro (Insulin Lispro 100 Unit/Ml 3 Ml Vial) 0 unit SUBCUT QIDACHS [facility]END[facility] TO [facility]; Protocol Last Admin: 04/14/21 07:52 Dose: 4 unit Documented by: KATIE Latanoprost (Latanoprost 0.005 % Ophth Betina 2.5 Ml Drops) 1 drop EYE-BOTH BEDTIME [facility] TO [facility] Omeprazole (Omeprazole 20 Mg Capsule.) 20 mg PO DAILY [facility] Last Admin: 04/14/21 07:51 Dose: 20 mg Documented by: KATIE Ondansetron HCl (Ondansetron Hcl 4 Mg/2 Ml Vial) 4 mg IVPUSH Q8H PRN PRN Reason: Nausea and Vomiting Sodium Chloride (0.9 % Sodium Chloride Flush 3 Ml Syringe) 3 ml IVFLUSH QSHIFT [facility] Last Admin: 04/14/21 08:55 Dose: 3 ml Documented by: KATIE Labs CBC & Chem 7: 04/19/21 06:10 04/20/21 05:50 Labs: Laboratory Results - last 24 hr 04/13/21 04/13/21 04/13/21 22:04 22:04 22:04 MCV 90.7 MCH 31.2 MCHC 34.4 RDW 14.1 Plt Count TNP MPV 10.6 Immature Gran % (Auto) Cancelled Neut % (Auto) Cancelled Lymph % (Auto) Cancelled [place] % (Auto) Cancelled Eos % (Auto) Cancelled Baso % (Auto) Cancelled Lymph # (Auto) Cancelled [place] # (Auto) Cancelled Eos # (Auto) Cancelled Baso # (Auto) Cancelled Abs Immat Gran (auto) Cancelled Absolute Neuts (auto) Cancelled Absolute Nucleated RBC 0.000 Nucleated RBC % (auto) 0.0 Neutrophils % (Manual) 78 H Lymphocytes % (Manual) 4 L Monocytes % (Manual) 18 H Abs Neuts (Manual) 8.7 H Lymphocytes # (Manual) 0.4 L Monocytes # (Manual) 2.0 H Platelet Estimate NORMAL Plt Morphology Comment NORMAL RBC Morphology NORMAL Anion Gap 18 Estim Creat Clear Calc 15.4 Estimated GFR 15 POC Glucose Random Glucose 386 H* Calcium 8.5 Magnesium B-Natriuretic Peptide 110 H Urine Color Urine Appearance Urine pH Ur Specific [place] Urine Protein Urine Glucose (UA) Urine Ketones Urine Blood Urine Nitrite Ur Leukocyte Esterase Urine RBC Urine WBC Ur Squamous Epith Cells Amorphous Sediment Urine Bacteria COVID-19 (GENE) COVID-19 Clin Com 04/14/21 04/14/21 04/14/21 00:19 01:40 01:45 MCV MCH MCHC RDW Plt Count MPV Immature Gran % (Auto) Neut % (Auto) Lymph % (Auto) [place] % (Auto) Eos % (Auto) Baso % (Auto) Lymph # (Auto) [place] # (Auto) Eos # (Auto) Baso # (Auto) Abs Immat Gran (auto) Absolute Neuts (auto) Absolute Nucleated RBC Nucleated RBC % (auto) Neutrophils % (Manual) Lymphocytes % (Manual) Monocytes % (Manual) Abs Neuts (Manual) Lymphocytes # (Manual) Monocytes # (Manual) Platelet Estimate Plt Morphology Comment RBC Morphology Anion Gap Estim Creat Clear Calc Estimated GFR POC Glucose Random Glucose Calcium Magnesium 3.1 H B-Natriuretic Peptide Urine Color YELLOW Urine Appearance CLEAR Urine pH 5.5 Ur Specific [place] 1.010 Urine Protein TRACE Urine Glucose (UA) >=1000 H Urine Ketones NEG Urine Blood 1+ H Urine Nitrite NEG Ur Leukocyte Esterase NEG Urine RBC 0-2 Urine WBC 1-4 Ur Squamous Epith Cells 2+ Amorphous Sediment 2+ Urine Bacteria 2+ COVID-19 (GENE) Negative COVID-19 Clin Com See Note 04/14/21 04/14/21 04/14/21 01:51 06:35 06:35 MCV 91.2 MCH 30.4 MCHC 33.3 RDW 14.3 Plt Count 207 MPV 10.7 Immature Gran % (Auto) 3.7 H Neut % (Auto) 79.8 H Lymph % (Auto) 5.8 L [place] % (Auto) 9.8 Eos % (Auto) 0.5 Baso % (Auto) 0.4 Lymph # (Auto) 0.6 L [place] # (Auto) 1.1 Eos # (Auto) 0.1 Baso # (Auto) 0.0 Abs Immat Gran (auto) 0.41 H Absolute Neuts (auto) 8.8 H Absolute Nucleated RBC 0.000 Nucleated RBC % (auto) 0.0 Neutrophils % (Manual) Lymphocytes % (Manual) Monocytes % (Manual) Abs Neuts (Manual) Lymphocytes # (Manual) Monocytes # (Manual) Platelet Estimate Plt Morphology Comment RBC Morphology Anion Gap 16 Estim Creat Clear Calc 17.8 Estimated GFR 17 POC Glucose 258 H Random Glucose 236 H D Calcium 7.9 L D Magnesium B-Natriuretic Peptide Urine Color Urine Appearance Urine pH Ur Specific [place] Urine Protein Urine Glucose (UA) Urine Ketones Urine Blood Urine Nitrite Ur Leukocyte Esterase Urine RBC Urine WBC Ur Squamous Epith Cells Amorphous Sediment Urine Bacteria COVID-19 (GENE) COVID-19 Clin Com 04/14/21 07:26 MCV MCH MCHC RDW Plt Count MPV Immature Gran % (Auto) Neut % (Auto) Lymph % (Auto) [place] % (Auto) Eos % (Auto) Baso % (Auto) Lymph # (Auto) [place] # (Auto) Eos # (Auto) Baso # (Auto) Abs Immat Gran (auto) Absolute Neuts (auto) Absolute Nucleated RBC Nucleated RBC % (auto) Neutrophils % (Manual) Lymphocytes % (Manual) Monocytes % (Manual) Abs Neuts (Manual) Lymphocytes # (Manual) Monocytes # (Manual) Platelet Estimate Plt Morphology Comment RBC Morphology Anion Gap Estim Creat Clear Calc Estimated GFR POC Glucose 204 H Random Glucose Calcium Magnesium B-Natriuretic Peptide Urine Color Urine Appearance Urine pH Ur Specific [place] Urine Protein Urine Glucose (UA) Urine Ketones Urine Blood Urine Nitrite Ur Leukocyte Esterase Urine RBC Urine WBC Ur Squamous Epith Cells Amorphous Sediment Urine Bacteria COVID-19 (GENE) COVID-19 Clin Com Assessment and Plan (1) Glucosuria: Status: Acute (2) Bladder wall thickening: Status: Acute (3) YESSENIA (acute kidney injury): Status: Acute (4) Hydronephrosis: Status: Acute Plan 75-year-old male with past medical history of hypertension, diabetes who presents to the hospital with complaints of chest pain found to have AFib with RVR as well as? YESSENIA AFib with RVR. chadsVasc score 4 patient denies history or at least he states that he has not known of hx of A fib Echo consult cardiology will start him on eliquis until seen by cardiology Chest pain likely due to tachycardia ekg not suggestive of ACS no elevated trop YESSENIA likely 2/2 postrenal with bladder outlet obstruction secondary to bladder mass CT abd showing asymmetrical bladder wall thickening concerning for malignancy IV fluids follow BMP urology consult HTN will hold lisinopril? given YESSENIA CHF? on Lasix at home will hold Lasix in the setting of? YESSENIA does not appear to be in fluid overload monitor volume status diabetes sliding scale ada diet Attending Dr. Iyer Full code DVT prophylaxis: Eliquis Quality Stroke Does the patient have a stroke diagnosis?: No VTE Prior VTE?: No VTE Risk Level:: Medical - moderate - high VTE Device Contraindication: Treatment Not Indicated VTE Drug Contraindication: N/A - Med Ordered
[2021-04-14 13:18] LABS: Glucose, Whole Blood 187 mg/dL (60-115)
--- NOTE | 2021-04-14 14:06 | PC.NURSE ---
attempted to call and give report. rn unavailable.
[2021-04-14 15:29] VITALS: BP 113/56; PULSE 94; RESP 20; TEMP 37.1; O2SAT 99
[2021-04-14 16:14] LABS: Glucose, Whole Blood 253 mg/dL (60-115)
--- NOTE | 2021-04-14 17:32 | PM.UROCN ---
History of Present Illness Consult details Consult date: 04/14/21 Narrative: 75-year-old male. Monegasque speaker. History obtained through chart review Monegasque speaker Admitted to hospital with new onset AFib Concurrent diagnosis includes glucosuria from poorly controlled diabetes with urinary tract infection and acute kidney injury CT imaging with mild hydroureteronephrosis bilaterally and question of bladder wall thickening from possible carcinoma process No history of gross hematuria Creatinine today 3.45 down from 4.0 Recommend bladder scan to ensure bladder emptying Urine culture Gram-negative rods awaiting speciation Can be seen as outpatient for cystoscopy Review of Systems Constitutional: Constitutional: Reports as per HPI and Reports no additional constitutional complaints Cardiovascular: Cardiovascular: Reports as per HPI and Reports no additional cardiovascular complaints Respiratory: Respiratory: Reports as per HPI and Reports no additional respiratory complaints Gastrointestinal: Gastrointestinal: Reports as per HPI and Reports no additional gastrointestinal complaints Genitourinary: Genitourinary: Reports as per HPI Musculoskeletal: Musculoskeletal: Reports no additional musculoskeletal complaints and Reports as per HPI Neurologic: Reports system reviewed and no additional complaints, except as documented and Reports as per HPI [facility] Past Medical History Medical History (Updated 04/16/21 @ 12:11 by JACOB Barnes) Diabetes 1.5, managed as type 2 High cholesterol Hypertension Family History Family History (Updated 04/14/21 @ 05:59 by Hilary Mendez MD) Other No family history of coronary artery disease Surgical History Surgical History (Updated 04/14/21 @ 06:00 by Hilary Mendez MD) No pertinent past surgical history Social History Social History (Updated 04/14/21 @ 06:00 by Hilary Mendez MD) Household Members: Children Housing: House Do you presently have visiting nurse or other home services: No Alcohol intake: never Patient Tobacco Use Status: Former Tobacco user service: No Meds Allergies Allergy/AdvReac Type Severity Reaction Status Date / Time No Known Allergies Allergy Mild NONE Verified 04/13/21 18:49 Active Medications: Current Medications Acetaminophen (Acetaminophen 325 Mg Tablet) 650 mg PO Q6H PRN PRN Reason: Pain, Mild (Pain Scale 1-3) Apixaban (Apixaban 5 Mg Tablet) 5 mg PO BID [facility] Last Admin: 04/14/21 07:51 Dose: 5 mg Documented by: Aspirin (Aspirin Enteric Coated 81 Mg Tablet.) 81 mg PO DAILY [facility] Last Admin: 04/14/21 07:52 Dose: 81 mg Documented by: Dextrose (Dextrose 50 % 25 Gm/50 Ml Syringe) 25 gm IVPUSH Q15M PRN; Protocol PRN Reason: per Hypoglycemia Standing Ord. Docusate Sodium (Docusate Sodium 100 Mg Capsule) 100 mg PO DAILY PRN PRN Reason: Constipation Dorzolamide/Timolol (Dorzolamide/Timolo 2.23%/0.68% 10 Ml Drbtl) 1 drop EYE-BOTH DAILY [facility] Glucose (Glucose Gel 15 Gm Gel..Gram.) 15 gm PO Q15M PRN; Protocol PRN Reason: per Hypoglycemia Standing Ord. Sodium Chloride (Ns) 1,000 mls @ 100 mls/hr IVCONT .Q10H [facility] Last Admin: 04/14/21 09:07 Dose: 100 mls/hr Documented by: Insulin Glargine (Insulin Glargine,Hum.Rec.Anlog 100 Unit/Ml 10 Ml Vial) 12 unit SUBCUT BEDTIME [facility] Insulin Human Lispro (Insulin Lispro 100 Unit/Ml 3 Ml Vial) 0 unit SUBCUT QIDACHS [facility]; Protocol Last Admin: 04/14/21 17:09 Dose: 6 unit Documented by: Latanoprost (Latanoprost 0.005 % Ophth Betina 2.5 Ml Drops) 1 drop EYE-BOTH BEDTIME [facility] Non-Formulary Medication (Empagliflozin [Jardiance]) 1 tab PO DAILY [facility] Omeprazole (Omeprazole 20 Mg Capsule.Dr) 20 mg PO DAILY [facility] Last Admin: 04/14/21 07:51 Dose: 20 mg Documented by: Ondansetron HCl (Ondansetron Hcl 4 Mg/2 Ml Vial) 4 mg IVPUSH Q8H PRN PRN Reason: Nausea and Vomiting Sodium Chloride (0.9 % Sodium Chloride Flush 3 Ml Syringe) 3 ml IVFLUSH QSHIFT [facility] Last Admin: 04/14/21 17:01 Dose: Not Given Documented by: Home Medications Medication Instructions Recorded Confirmed Last Taken Type aspirin 81 mg tablet,delayed 1 tab PO DAILY 01/03/20 04/14/21 Unknown History release furosemide 20 mg tablet 1 tab PO DAILY 01/03/20 04/14/21 Unknown History insulin aspart U-100 100 unit/mL 2 - 15 unit SUBCUT TIDAC 01/03/20 04/14/21 Unknown History (3 mL) subcutaneous pen (Novolog Flexpen U-100 Insulin aspart) latanoprost 0.005 % eye drops 1 drp OPHTHALMIC (EYE) BEDTIME 01/03/20 04/14/21 Unknown History omeprazole 20 mg capsule,delayed 1 cap PO DAILY@0630 01/03/20 04/14/21 Unknown History release pioglitazone 45 mg tablet 1 tab PO DAILY 01/03/20 04/14/21 Unknown History atorvastatin 40 mg tablet 1 tab PO BEDTIME 04/14/21 04/14/21 Unknown History dorzolamide 22.3 mg-timolol 6.8 1 drp OPHTHALMIC (EYE) DAILY 04/14/21 04/14/21 Unknown History mg/mL eye drops empagliflozin 25 mg tablet 1 tab PO DAILY 04/14/21 04/14/21 Unknown History (Jardiance) fenofibrate 160 mg tablet 1 tab PO QAM 04/14/21 04/14/21 Unknown History insulin glargine 100 unit/mL (3 12 unit SUBCUT BEDTIME 04/14/21 04/14/21 Unknown History mL) subcutaneous pen (Lantus Solostar U-100 Insulin) lisinopril 40 mg tablet 1 tab PO DAILY 04/14/21 04/14/21 Unknown History Physical Exam Vital Signs: Vital Signs: Last Vital Signs Temp 98.8 F 04/14/21 15:29 Pulse 94 04/14/21 15:29 Resp 20 04/14/21 15:29 BP 113/56 L 04/14/21 15:29 Pulse Ox 99 04/14/21 15:29 BMI result Body Mass Index 27.8 Const: General: cooperative, healthy appearing, comfortable and no acute distress Orientation/consciousness: patient oriented x3 HENMT: Face and sinus: Yes normal facial exam Mouth: moist mucous membranes Neck: Neck: Yes normal visual inspection, Yes full ROM and Yes trachea midline Chest: Chest palpation & inspection: normal inspection of the chest Resp: Effort & Inspection: normal respiratory effort, able to speak in complete sentences and no respiratory distress GI: Inspection: Yes normal to inspection Back/Spine/Pelvis: Cervical Spine: normal cervical lordosis Thoracic/Lumbar Spine: thoracic and lumbar spine normal to inspection Skin: General skin exam: no rashes or lesions noted Neuro: General: patient oriented x3, tone normal and moves all extremities Extrem: General: Yes normal to inspection and Yes capillary refill normal Results Labs Result diagrams: 04/16/21 08:02 04/16/21 08:02 Labs: Abnormal lab results 04/13/21 04/13/21 04/13/21 Range/Units 22:04 22:04 22:04 WBC 11.1 H (4.8-10.8) X10*3/uL RBC 3.65 L (4.60-5.80) X10*6/uL Hgb 11.4 L (14.0-18.0) g/dl Hct 33.1 L (42.0-52.0) % Immature Gran % (Auto) (0.0-0.4) % Neut % (Auto) (45-73) % Lymph % (Auto) (20-40) % Lymph # (Auto) (1.2-4.9) X10*3/uL Abs Immat Gran (auto) (0.00-0.03) X10*3/uL Absolute Neuts (auto) (2.0-8.3) x10*3/uL Neutrophils % (Manual) 78 H (45-73) % Lymphocytes % (Manual) 4 L (20-40) % Monocytes % (Manual) 18 H (2-11) % Abs Neuts (Manual) 8.7 H (2.0-8.3) X10*3/uL Lymphocytes # (Manual) 0.4 L (1.2-4.9) X10*3/uL Monocytes # (Manual) 2.0 H (0.1-1.2) X10*3/uL Sodium 132 L (135-145) mmol/L Carbon Dioxide (22-29) mmol/L BUN 105 H (9-16) mg/dL Creatinine 3.99 H (0.5-1.4) mg/dL POC Glucose (60-115) mg/dL Random Glucose 386 H* (60-115) mg/dL Calcium (8.4-10.2) mg/dL Magnesium (1.6-2.6) mg/dL B-Natriuretic Peptide 110 H (<100) pg/mL Urine Glucose (UA) (NEG) MG/DL Urine Blood (NEG) 04/14/21 04/14/21 04/14/21 Range/Units 00:19 01:40 01:51 WBC (4.8-10.8) X10*3/uL RBC (4.60-5.80) X10*6/uL Hgb (14.0-18.0) g/dl Hct (42.0-52.0) % Immature Gran % (Auto) (0.0-0.4) % Neut % (Auto) (45-73) % Lymph % (Auto) (20-40) % Lymph # (Auto) (1.2-4.9) X10*3/uL Abs Immat Gran (auto) (0.00-0.03) X10*3/uL Absolute Neuts (auto) (2.0-8.3) x10*3/uL Neutrophils % (Manual) (45-73) % Lymphocytes % (Manual) (20-40) % Monocytes % (Manual) (2-11) % Abs Neuts (Manual) (2.0-8.3) X10*3/uL Lymphocytes # (Manual) (1.2-4.9) X10*3/uL Monocytes # (Manual) (0.1-1.2) X10*3/uL Sodium (135-145) mmol/L Carbon Dioxide (22-29) mmol/L BUN (9-16) mg/dL Creatinine (0.5-1.4) mg/dL POC Glucose 258 H (60-115) mg/dL Random Glucose (60-115) mg/dL Calcium (8.4-10.2) mg/dL Magnesium 3.1 H (1.6-2.6) mg/dL B-Natriuretic Peptide (<100) pg/mL Urine Glucose (UA) >=1000 H (NEG) MG/DL Urine Blood 1+ H (NEG) 04/14/21 04/14/21 04/14/21 Range/Units 06:35 06:35 07:26 WBC 11.0 H (4.8-10.8) X10*3/uL RBC 3.52 L (4.60-5.80) X10*6/uL Hgb 10.7 L (14.0-18.0) g/dl Hct 32.1 L (42.0-52.0) % Immature Gran % (Auto) 3.7 H (0.0-0.4) % Neut % (Auto) 79.8 H (45-73) % Lymph % (Auto) 5.8 L (20-40) % Lymph # (Auto) 0.6 L (1.2-4.9) X10*3/uL Abs Immat Gran (auto) 0.41 H (0.00-0.03) X10*3/uL Absolute Neuts (auto) 8.8 H (2.0-8.3) x10*3/uL Neutrophils % (Manual) (45-73) % Lymphocytes % (Manual) (20-40) % Monocytes % (Manual) (2-11) % Abs Neuts (Manual) (2.0-8.3) X10*3/uL Lymphocytes # (Manual) (1.2-4.9) X10*3/uL Monocytes # (Manual) (0.1-1.2) X10*3/uL Sodium (135-145) mmol/L Carbon Dioxide 19 L (22-29) mmol/L BUN 94 H (9-16) mg/dL Creatinine 3.45 H (0.5-1.4) mg/dL POC Glucose 204 H (60-115) mg/dL Random Glucose 236 H D (60-115) mg/dL Calcium 7.9 L D (8.4-10.2) mg/dL Magnesium (1.6-2.6) mg/dL B-Natriuretic Peptide (<100) pg/mL Urine Glucose (UA) (NEG) MG/DL Urine Blood (NEG) 04/14/21 04/14/21 Range/Units 13:12 16:09 WBC (4.8-10.8) X10*3/uL RBC (4.60-5.80) X10*6/uL Hgb (14.0-18.0) g/dl Hct (42.0-52.0) % Immature Gran % (Auto) (0.0-0.4) % Neut % (Auto) (45-73) % Lymph % (Auto) (20-40) % Lymph # (Auto) (1.2-4.9) X10*3/uL Abs Immat Gran (auto) (0.00-0.03) X10*3/uL Absolute Neuts (auto) (2.0-8.3) x10*3/uL Neutrophils % (Manual) (45-73) % Lymphocytes % (Manual) (20-40) % Monocytes % (Manual) (2-11) % Abs Neuts (Manual) (2.0-8.3) X10*3/uL Lymphocytes # (Manual) (1.2-4.9) X10*3/uL Monocytes # (Manual) (0.1-1.2) X10*3/uL Sodium (135-145) mmol/L Carbon Dioxide (22-29) mmol/L BUN (9-16) mg/dL Creatinine (0.5-1.4) mg/dL POC Glucose 187 H 253 H (60-115) mg/dL Random Glucose (60-115) mg/dL Calcium (8.4-10.2) mg/dL Magnesium (1.6-2.6) mg/dL B-Natriuretic Peptide (<100) pg/mL Urine Glucose (UA) (NEG) MG/DL Urine Blood (NEG) Short CBC 04/13/21 04/14/21 Range/Units 22:04 06:35 WBC 11.1 H 11.0 H (4.8-10.8) X10*3/uL Hgb 11.4 L 10.7 L (14.0-18.0) g/dl Hct 33.1 L 32.1 L (42.0-52.0) % Plt Count TNP 207 BMP 04/13/21 04/14/21 22:04 06:35 Sodium 132 L 138 Potassium 4.9 4.8 Chloride 97 108 Carbon Dioxide 22 19 L BUN 105 H 94 H Creatinine 3.99 H 3.45 H Calcium 8.5 7.9 L D Urine 04/14/21 Range/Units 01:40 Urine Color YELLOW Urine Appearance CLEAR Urine pH 5.5 (5.0-8.0) Ur Specific [place] 1.010 (1.005-1.025) Urine Protein TRACE (NEG-TRACE) MG/DL Urine Glucose (UA) >=1000 H (NEG) MG/DL All other labs normal. Assessment and Plan (1) Bacteremia: Status: Acute (2) Hydronephrosis: Status: Acute (3) Bladder wall thickening: Status: Acute Plan Medical management of glucosuria, uncontrolled diabetes and pyelonephritis Outpatient cystoscopy Procedures Date of Service Date of Service: 04/14/21
[2021-04-14 18:56] LABS: Estimated Average Glucose 203 mg/dL; Hemoglobin A1c % 8.7 %
[2021-04-14 19:38] VITALS: BP 121/62; PULSE 103; RESP 18; TEMP 38.6; O2SAT 98
[2021-04-14 19:44] LABS: Glucose, Whole Blood 253 mg/dL (60-115)
[2021-04-14] MEDS: Acetaminophen 325 MG TABLET 650 MG PO (20:06)
[2021-04-14] MEDS: Insulin Glargine,Hum.rec.anlog 100 UNIT/ML 10 ML VIAL 12 UNIT SUBCUT (20:07)
[2021-04-14] MEDS: Latanoprost 0.005 % Ophth Sol 2.5 ML DROPS 1 DROP EYE-BOTH (20:08)
[2021-04-15] VITALS (9 sets, daily range): BP systolic 96–148; BP diastolic 52–77; PULSE 75–105; RESP 14–18; TEMP 36.1–39; O2SAT 95–99
--- NOTE | 2021-04-15 | ECG_ITS ---
Test Reason : rhythm check Blood Pressure : / mmHG Vent. Rate : 074 BPM Atrial Rate : 074 BPM P-R Int : 132 ms QRS Dur : 104 ms QT Int : 362 ms P-R-T Axes : 063 006 006 degrees QTc Int : 401 ms Normal sinus rhythm Normal ECG When compared with ECG of 14-APR-2021 01:15, Sinus rhythm has replaced Atrial fibrillation Referred By: Rodney Iyer Electronically Signed By:Maximiliano Mae
[2021-04-15] MEDS: 0.9 % Sodium Chloride 1,000 ML 100 ML IVCONT (02:51)
[2021-04-15 06:38] LABS: Hematocrit 32.1 % (42.0-52.0); Hemoglobin 10.8 g/dl (14.0-18.0); Mean Corpuscular HGB Conc 33.6 g/dl (31.0-36.0); Mean Corpuscular Hemoglobin 30.9 pg (27.0-33.0); Mean Platelet Volume 10.5 fL (9.4-12.4); Platelet Count 273 X10*3/uL (160-400); Red Blood Count 3.49 X10*6/uL (4.60-5.80); Red Cell Distribution Width 14.6 % (11.0-16.0); White Blood Count 15.1 X10*3/uL (4.8-10.8)
[2021-04-15 06:53] LABS: Anion Gap 15 (12-20); Blood Urea Nitrogen 84 mg/dL (9-16); Calcium 7.9 mg/dL (8.4-10.2); Carbon Dioxide 20 mmol/L (22-29); Chloride 110 mmol/L (96-108); Creatinine Clr Calc Pharmacy 19.6; Estimated Glomerular Filt Rate 20; Glucose Random 160 mg/dL (60-115); Potassium 4.8 mmol/L (3.3-5.1); Sodium 140 mmol/L (135-145)
[2021-04-15 07:13] LABS: Glucose, Whole Blood 239 mg/dL (60-115)
[2021-04-15] MEDS: Insulin Lispro 100 UNIT/ML 3 ML VIAL SUBCUT ×3 (07:52→17:13)
[2021-04-15] MEDS: Omeprazole 20 MG CAPSULE.DR PO (07:53)
[2021-04-15] MEDS: Aspirin Enteric Coated 81 MG TABLET.DR PO (07:53)
[2021-04-15] MEDS: Apixaban 5 MG TABLET PO ×2 (07:53→20:57)
[2021-04-15] MEDS: 0.9 % Sodium Chloride Flush 3 ML SYRINGE IVFLUSH (07:53)
[2021-04-15] MEDS: Dorzolamide/Timolo 2.23%/0.68% 10 ML DRBTL 1 DROP EYE-BOTH (08:05)
[2021-04-15] MEDS: Acetaminophen 325 MG TABLET 650 MG PO ×2 (08:05→19:41)
--- NOTE | 2021-04-15 10:26 | MHC.CM.PN ---
with interpertor met with pt who explins that he lives with his dgter who does everything for him he is vacc x2 he does not anticapate needing servcies when dc hiis dgter will transport home
--- NOTE | 2021-04-15 11:07 | HO.PM.IMPN ---
Subjective Subjective Date of Service: 04/15/21 Interval History: seen and examined denies any pain Review of Systems negative except HPI Physical Exam Vital Signs: Vital Signs: Last Vital Signs Temp 97 F 04/15/21 11:01 Pulse 75 04/15/21 11:01 Resp 18 04/15/21 11:01 BP 96/52 L 04/15/21 11:01 Pulse Ox 98 04/15/21 11:01 BMI result Body Mass Index 27.8 Const: Other: General - no acute distress, appears comfortable Cardiovascular - IRR Lungs - normal respiratory effort, clear to auscultation bilaterally, no wheezing Abdomen - soft, nontender, no rebound or guarding Extremities - no edema bilaterally Neuro - awake and alert, no focal deficits Objective Data Active Medications Acetaminophen (Acetaminophen 325 Mg Tablet) 650 mg PO Q6H PRN PRN Reason: Pain, Mild (Pain Scale 1-3) Last Admin: 04/15/21 08:05 Dose: 650 mg Documented by: REAGAN Apixaban (Apixaban 5 Mg Tablet) 5 mg PO BID [facility] Last Admin: 04/15/21 07:53 Dose: 5 mg Documented by: REAGAN Aspirin (Aspirin Enteric Coated 81 Mg Tablet.Dr) 81 mg PO DAILY [facility] Last Admin: 04/15/21 07:53 Dose: 81 mg Documented by: REAGAN Dextrose (Dextrose 50 % 25 Gm/50 Ml Syringe) 25 gm IVPUSH Q15M PRN; Protocol PRN Reason: per Hypoglycemia Standing Ord. Docusate Sodium (Docusate Sodium 100 Mg Capsule) 100 mg PO DAILY PRN PRN Reason: Constipation Dorzolamide/Timolol (Dorzolamide/Timolo 2.23%/0.68% 10 Ml Drbtl) 1 drop EYE-BOTH DAILY [facility] Last Admin: 04/15/21 08:05 Dose: 1 drop Documented by: REAGAN Glucose (Glucose Gel 15 Gm Gel..Gram.) 15 gm PO Q15M PRN; Protocol PRN Reason: per Hypoglycemia Standing Ord. Insulin Glargine (Insulin Glargine,Hum.Rec.Anlog 100 Unit/Ml 10 Ml Vial) 12 unit SUBCUT BEDTIME [facility] Last Admin: 04/14/21 20:07 Dose: 12 unit Documented by: SUSAN Insulin Human Lispro (Insulin Lispro 100 Unit/Ml 3 Ml Vial) 0 unit SUBCUT QIDACHS [facility]; Protocol Last Admin: 04/15/21 07:52 Dose: 4 unit Documented by: REAGAN Latanoprost (Latanoprost 0.005 % Ophth Betina 2.5 Ml Drops) 1 drop EYE-BOTH BEDTIME [facility] Last Admin: 04/14/21 20:08 Dose: 1 drop Documented by: SUSAN Omeprazole (Omeprazole 20 Mg Capsule.Dr) 20 mg PO DAILY [facility] Last Admin: 04/15/21 07:53 Dose: 20 mg Documented by: REAGAN Ondansetron HCl (Ondansetron Hcl 4 Mg/2 Ml Vial) 4 mg IVPUSH Q8H PRN PRN Reason: Nausea and Vomiting Sodium Chloride (0.9 % Sodium Chloride Flush 3 Ml Syringe) 3 ml IVFLUSH QSHIFT [facility] Last Admin: 04/15/21 07:53 Dose: 3 ml Documented by: REAGAN Labs CBC & Chem 7: 04/15/21 06:21 04/15/21 06:21 Labs: Laboratory Results - last 24 hr 04/14/21 04/14/21 04/14/21 13:12 16:09 17:59 MCV MCH MCHC RDW Plt Count MPV Absolute Nucleated RBC Nucleated RBC % (auto) Anion Gap Estim Creat Clear Calc Estimated GFR POC Glucose 187 H 253 H Random Glucose Estimat Average Glucose 203 Hemoglobin A1c % 8.7 Calcium 04/14/21 04/15/21 04/15/21 19:40 06:21 06:21 MCV 92.0 MCH 30.9 MCHC 33.6 RDW 14.6 Plt Count 273 D MPV 10.5 Absolute Nucleated RBC 0.000 Nucleated RBC % (auto) 0.0 Anion Gap 15 Estim Creat Clear Calc 19.6 Estimated GFR 20 POC Glucose 253 H Random Glucose 160 H Estimat Average Glucose Hemoglobin A1c % Calcium 7.9 L 04/15/21 07:03 MCV MCH MCHC RDW Plt Count MPV Absolute Nucleated RBC Nucleated RBC % (auto) Anion Gap Estim Creat Clear Calc Estimated GFR POC Glucose 239 H Random Glucose Estimat Average Glucose Hemoglobin A1c % Calcium Assessment and Plan (1) Glucosuria: Status: Acute (2) Bladder wall thickening: Status: Acute (3) YESSENIA (acute kidney injury): Status: Acute (4) Hydronephrosis: Status: Acute Plan 75-year-old male with past medical history of hypertension, diabetes who presents to the hospital with complaints of chest pain found to have AFib with RVR as well as? YESSENIA YESSENIA on CKD stage 3 to 4 Baseline SCr range 2 to 2.5, presented with 3.99, now 3.14 today improved with IV hydration, but there is a concern over post-renal issues contributing Urology consulted -- recommends to bladder scan to ensure emptying continue IVF, change to LR @ 100 cc/hr x 2L New onset A Fib with RVR now in sinus on telemonitor Eliquis started this admission, echo done showring preserved EF Cardiology consulted Asymmetric bladder wall thickening conerning over neoplastic process raised on CT scan Urology on board UA with some bacteria -- will empirically cover with IV rocepin HTN bp on the softer side hold antihypertensives Chest pain likely due to tachycardia ekg not suggestive of ACS resolved Question CHF echo showing preserved EF clinically not overloaded hold diuretics DM basal+bolus Full code DVT prophylaxis: Eliquis Quality Stroke Does the patient have a stroke diagnosis?: No VTE Prior VTE?: No VTE Risk Level:: Medical - moderate - high VTE Device Contraindication: Treatment Not Indicated VTE Drug Contraindication: N/A - Med Ordered
[2021-04-15 11:39] LABS: Glucose, Whole Blood 256 mg/dL (60-115)
[2021-04-15] MEDS: Lactated Ringers 1,000 ML 100 ML IVCONT ×2 (11:46→23:24)
[2021-04-15] MEDS: cefTRIAXone sodium 1 GM in 0.9 % Sodium Chloride 50 ML IV (14:31)
--- NOTE | 2021-04-15 15:52 | P.CONCA_ITS ---
History of Present Illness History of Present Illness Date of Service: 04/15/21 Chief complaint: A fib w RVR, YESSENIA Narrative: 75-year-old gentleman who is presenting for AFib with RVR. He had pressure-like feeling in his chest and reason to emergency department. He was noted to be in AFib with RVR. Overnight he has reverted back to sinus rhythm on his own. No significant bleeding issues and has been started on Eliquis. He has chronic kidney disease and his creatinine is worse than before. He has no chest pain right now. Biomarkers were not elevated. [facility] Past Medical History Medical History (Updated 04/14/21 @ 17:31 by Camden Winchester MD) Diabetes 1.5, managed as type 2 High cholesterol Hypertension Family History Family History (Updated 04/14/21 @ 05:59 by Hilary Mendez MD) Other No family history of coronary artery disease Surgical History Surgical History (Updated 04/14/21 @ 06:00 by Hilary Mendez MD) No pertinent past surgical history Social History Social History (Updated 04/14/21 @ 06:00 by Hilary Mendez MD) Household Members: Children Housing: House Do you presently have visiting nurse or other home services: No Alcohol intake: never Patient Tobacco Use Status: Former Tobacco user service: No Meds Allergies Allergy/AdvReac Type Severity Reaction Status Date / Time No Known Allergies Allergy Mild NONE Verified 04/13/21 18:49 Active Medications: Current Medications Acetaminophen (Acetaminophen 325 Mg Tablet) 650 mg PO Q6H PRN PRN Reason: Pain, Mild (Pain Scale 1-3) Last Admin: 04/15/21 08:05 Dose: 650 mg Documented by: Apixaban (Apixaban 5 Mg Tablet) 5 mg PO BID [facility] Last Admin: 04/15/21 07:53 Dose: 5 mg Documented by: Aspirin (Aspirin Enteric Coated 81 Mg Tablet.) 81 mg PO DAILY [facility] Last Admin: 04/15/21 07:53 Dose: 81 mg Documented by: Dextrose (Dextrose 50 % 25 Gm/50 Ml Syringe) 25 gm IVPUSH Q15M PRN; Protocol PRN Reason: per Hypoglycemia Standing Ord. Docusate Sodium (Docusate Sodium 100 Mg Capsule) 100 mg PO DAILY PRN PRN Reason: Constipation Dorzolamide/Timolol (Dorzolamide/Timolo 2.23%/0.68% 10 Ml Drbtl) 1 drop EYE- BOTH DAILY [facility] Last Admin: 04/15/21 08:05 Dose: 1 drop Documented by: Glucose (Glucose Gel 15 Gm Gel..Gram.) 15 gm PO Q15M PRN; Protocol PRN Reason: per Hypoglycemia Standing Ord. Lactated Ringer's (Lr) 1,000 mls @ 100 mls/hr IVCONT .Q10H [facility] Stop: 04/16/21 07:29 Last Admin: 04/15/21 11:46 Dose: 100 mls/hr Documented by: Ceftriaxone Sodium 1 gm/ (Sodium Chloride) 50 mls @ 100 mls/hr IV Q24H [facility] Last Admin: 04/15/21 14:31 Dose: 100 mls/hr Documented by: Insulin Glargine (Insulin Glargine,Hum.Rec.Anlog 100 Unit/Ml 10 Ml Vial) 12 unit SUBCUT BEDTIME [facility] Last Admin: 04/14/21 20:07 Dose: 12 unit Documented by: Insulin Human Lispro (Insulin Lispro 100 Unit/Ml 3 Ml Vial) 0 unit SUBCUT QID ACHS [facility]; Protocol Last Admin: 04/15/21 11:48 Dose: 6 unit Documented by: Latanoprost (Latanoprost 0.005 % Ophth Betina 2.5 Ml Drops) 1 drop EYE-BOTH BEDTIME [facility] Last Admin: 04/14/21 20:08 Dose: 1 drop Documented by: Omeprazole (Omeprazole 20 Mg Capsule.Dr) 20 mg PO DAILY [facility] Last Admin: 04/15/21 07:53 Dose: 20 mg Documented by: Ondansetron HCl (Ondansetron Hcl 4 Mg/2 Ml Vial) 4 mg IVPUSH Q8H PRN PRN Reason: Nausea and Vomiting Sodium Chloride (0.9 % Sodium Chloride Flush 3 Ml Syringe) 3 ml IVFLUSH QSHIFT [facility] Last Admin: 04/15/21 07:53 Dose: 3 ml Documented by: Home Medications Medication Instructions Recorded Confirmed Last Taken Type aspirin 81 mg tablet,delayed 1 tab PO DAILY 01/03/20 04/14/21 Unknown History release furosemide 20 mg tablet 1 tab PO DAILY 01/03/20 04/14/21 Unknown History insulin aspart U-100 100 unit/mL 2 - 15 unit SUBCUT TIDAC 01/03/20 04/14/21 Unknown History (3 mL) subcutaneous pen (Novolog Flexpen U-100 Insulin aspart) latanoprost 0.005 % eye drops 1 drp OPHTHALMIC (EYE) BEDTIME 01/03/20 04/14/21 Unknown History omeprazole 20 mg capsule,delayed 1 cap PO DAILY@0630 01/03/20 04/14/21 Unknown History release pioglitazone 45 mg tablet 1 tab PO DAILY 01/03/20 04/14/21 Unknown History atorvastatin 40 mg tablet 1 tab PO BEDTIME 04/14/21 04/14/21 Unknown History dorzolamide 22.3 mg-timolol 6.8 1 drp OPHTHALMIC (EYE) DAILY 04/14/21 04/14/21 Unknown History mg/mL eye drops empagliflozin 25 mg tablet 1 tab PO DAILY 04/14/21 04/14/21 Unknown History (Jardiance) fenofibrate 160 mg tablet 1 tab PO QAM 04/14/21 04/14/21 Unknown History insulin glargine 100 unit/mL (3 12 unit SUBCUT BEDTIME 04/14/21 04/14/21 Unknown History mL) subcutaneous pen (Lantus Solostar U-100 Insulin) lisinopril 40 mg tablet 1 tab PO DAILY 04/14/21 04/14/21 Unknown History Physical Exam Vital Signs: Vital Signs: Last Vital Signs Temp 97.9 F 04/15/21 15:24 Pulse 85 04/15/21 15:24 Resp 14 04/15/21 15:24 BP 132/63 04/15/21 15:24 Pulse Ox 97 04/15/21 15:24 BMI result Body Mass Index 27.8 GENERAL APPEARANCE: in no acute distress, pleasant. NECK: no carotid bruit, no jugular venous distention. SKIN: no suspicious lesions, warm and dry. HEART: no murmurs, regular rate and rhythm. LUNGS: clear to auscultation bilaterally. ABDOMEN: soft, nontender. EXTREMITIES: no edema. PERIPHERAL PULSES: equal. NEUROLOGIC: No gross deficits, AAO X 3 Objective Labs and Meds Result diagrams: 04/15/21 06:21 04/15/21 06:21 Lab results: Laboratory Results - last 24 hr 04/14/21 04/14/21 04/14/21 16:09 17:59 19:40 WBC RBC Hgb Hct MCV MCH MCHC RDW Plt Count MPV Absolute Nucleated RBC Nucleated RBC % (auto) Sodium Potassium Chloride Carbon Dioxide Anion Gap BUN Creatinine Estim Creat Clear Calc Estimated GFR POC Glucose 253 H 253 H Random Glucose Estimat Average Glucose 203 Hemoglobin A1c % 8.7 Lactic Acid Calcium 04/15/21 04/15/21 04/15/21 06:21 06:21 07:03 WBC 15.1 H RBC 3.49 L Hgb 10.8 L Hct 32.1 L MCV 92.0 MCH 30.9 MCHC 33.6 RDW 14.6 Plt Count 273 D MPV 10.5 Absolute Nucleated RBC 0.000 Nucleated RBC % (auto) 0.0 Sodium 140 Potassium 4.8 Chloride 110 H Carbon Dioxide 20 L Anion Gap 15 BUN 84 H Creatinine 3.14 H Estim Creat Clear Calc 19.6 Estimated GFR 20 POC Glucose 239 H Random Glucose 160 H Estimat Average Glucose Hemoglobin A1c % Lactic Acid Calcium 7.9 L 04/15/21 04/15/21 11:36 12:35 WBC RBC Hgb Hct MCV MCH MCHC RDW Plt Count MPV Absolute Nucleated RBC Nucleated RBC % (auto) Sodium Potassium Chloride Carbon Dioxide Anion Gap BUN Creatinine Estim Creat Clear Calc Estimated GFR POC Glucose 256 H Random Glucose Estimat Average Glucose Hemoglobin A1c % Lactic Acid 2.0 Calcium Assessment and Plan (1) Chest pain: Status: Acute (2) Atrial fibrillation with RVR: Status: Acute Plan 75-year-old gentleman who is presenting for chest pain and AFib with RVR. He has reverted back to sinus rhythm on his own. No further chest pains right now. He has kidney disease and creatinine is worse than before. He has been started on Eliquis at this stage. He will need ischemic evaluation as outpatient. We will arrange a stress test for him. Add Toprol-XL 25 mg once a day. Thank you for allowing me to participate in the care of your patient. Please f eel free to contact me if you have any questions. Procedures Date of Service Date of Service: 04/15/21
[2021-04-15 16:01] LABS: Glucose, Whole Blood 215 mg/dL (60-115)
[2021-04-15 19:53] LABS: Glucose, Whole Blood 144 mg/dL (60-115)
[2021-04-15] MEDS: Insulin Glargine,Hum.rec.anlog 100 UNIT/ML 10 ML VIAL 12 UNIT SUBCUT (20:57)
[2021-04-15] MEDS: Latanoprost 0.005 % Ophth Sol 2.5 ML DROPS 1 DROP EYE-BOTH (20:57)
[2021-04-16] VITALS (8 sets, daily range): BP systolic 100–148; BP diastolic 51–74; PULSE 64–92; RESP 16–20; TEMP 36.2–38.7; O2SAT 95–98
[2021-04-16 07:54] LABS: Glucose, Whole Blood 153 mg/dL (60-115)
[2021-04-16 08:11] LABS: MANUAL DIFF FLAG NO
[2021-04-16 08:17] LABS: Basophils Absolute Auto 0.1 X10*3/uL (0.0-0.2); Basophils Percent Auto 0.3 % (0-2); Eosinophils Absolute Auto 0.2 X10*3/uL (0.0-0.4); Hematocrit 31.5 % (42.0-52.0); Hemoglobin 10.3 g/dl (14.0-18.0); Imm Gran Abs Auto 0.54 X10*3/uL (0.00-0.03); Imm Gran Pct Auto 3.1 % (0.0-0.4); Lymphocytes Absolute Auto 0.8 X10*3/uL (1.2-4.9); Lymphocytes Percent Auto 4.9 % (20-40); Mean Corpuscular HGB Conc 32.7 g/dl (31.0-36.0); Mean Corpuscular Hemoglobin 30.7 pg (27.0-33.0); Mean Corpuscular Volume 93.8 fL (80.0-98.0); Mean Platelet Volume 10.6 fL (9.4-12.4); Monocytes Absolute Auto 0.8 X10*3/uL (0.1-1.2); Monocytes Percent Auto 4.6 % (2-11); Neutrophils Absolute Auto 14.8 x10*3/uL (2.0-8.3); Neutrophils Percent Auto 86.1 % (45-73); Platelet Count 342 X10*3/uL (160-400); Red Blood Count 3.36 X10*6/uL (4.60-5.80); Red Cell Distribution Width 14.6 % (11.0-16.0); White Blood Count 17.2 X10*3/uL (4.8-10.8)
[2021-04-16] MEDS: Aspirin Enteric Coated 81 MG TABLET.DR PO (08:22)
[2021-04-16] MEDS: Metoprolol Succinate ER 25 MG TAB.ER.24H PO (08:22)
[2021-04-16] MEDS: Omeprazole 20 MG CAPSULE.DR PO (08:22)
[2021-04-16] MEDS: 0.9 % Sodium Chloride Flush 3 ML SYRINGE IVFLUSH ×3 (08:22→20:35)
[2021-04-16] MEDS: Insulin Lispro 100 UNIT/ML 3 ML VIAL SUBCUT ×3 (08:22→20:35)
[2021-04-16] MEDS: Apixaban 5 MG TABLET PO ×2 (08:22→20:35)
[2021-04-16] MEDS: Dorzolamide/Timolo 2.23%/0.68% 10 ML DRBTL 1 DROP EYE-BOTH (08:23)
[2021-04-16 08:30] LABS: Anion Gap 13 (12-20); Blood Urea Nitrogen 69 mg/dL (9-16); Calcium 7.9 mg/dL (8.4-10.2); Carbon Dioxide 20 mmol/L (22-29); Chloride 111 mmol/L (96-108); Creatinine Clr Calc Pharmacy 25.6; Estimated Glomerular Filt Rate 27; Glucose Random 186 mg/dL (60-115); Potassium 5.1 mmol/L (3.3-5.1); Sodium 139 mmol/L (135-145)
--- NOTE | 2021-04-16 10:47 | PM.PNCARD ---
Subjective Subjective Date of Service: 04/16/21 Interval history: . No chest pain or shortness of breath. In sinus rhythm. Physical Exam Vital Signs: Last Vital Signs Temp 98.8 F 04/16/21 07:05 Pulse 92 04/16/21 07:05 Resp 18 04/16/21 07:05 BP 148/70 H 04/16/21 07:05 Pulse Ox 98 04/16/21 07:05 BMI result Body Mass Index 27.8 GENERAL APPEARANCE: in no acute distress, pleasant. NECK: no carotid bruit, no jugular venous distention. SKIN: no suspicious lesions, warm and dry. HEART: no murmurs, regular rate and rhythm. LUNGS: clear to auscultation bilaterally. ABDOMEN: soft, nontender. EXTREMITIES: no edema. PERIPHERAL PULSES: equal. NEUROLOGIC: No gross deficits, AAO X 3 Objective Labs and Meds Result diagrams: 04/16/21 08:02 04/16/21 08:02 Lab results: Laboratory Results - last 24 hr 04/15/21 04/15/21 04/15/21 11:36 12:35 15:57 WBC RBC Hgb Hct MCV MCH MCHC RDW Plt Count MPV Immature Gran % (Auto) Neut % (Auto) Lymph % (Auto) [place] % (Auto) Eos % (Auto) Baso % (Auto) Lymph # (Auto) [place] # (Auto) Eos # (Auto) Baso # (Auto) Abs Immat Gran (auto) Absolute Neuts (auto) Absolute Nucleated RBC Nucleated RBC % (auto) Sodium Potassium Chloride Carbon Dioxide Anion Gap BUN Creatinine Estim Creat Clear Calc Estimated GFR POC Glucose 256 H 215 H Random Glucose Lactic Acid 2.0 Calcium 04/15/21 04/16/21 04/16/21 19:46 07:48 08:02 WBC 17.2 H RBC 3.36 L Hgb 10.3 L Hct 31.5 L MCV 93.8 MCH 30.7 MCHC 32.7 RDW 14.6 Plt Count 342 D MPV 10.6 Immature Gran % (Auto) 3.1 H Neut % (Auto) 86.1 H Lymph % (Auto) 4.9 L [place] % (Auto) 4.6 Eos % (Auto) 1.0 Baso % (Auto) 0.3 Lymph # (Auto) 0.8 L [place] # (Auto) 0.8 Eos # (Auto) 0.2 Baso # (Auto) 0.1 Abs Immat Gran (auto) 0.54 H Absolute Neuts (auto) 14.8 H Absolute Nucleated RBC 0.000 Nucleated RBC % (auto) 0.0 Sodium Potassium Chloride Carbon Dioxide Anion Gap BUN Creatinine Estim Creat Clear Calc Estimated GFR POC Glucose 144 H 153 H Random Glucose Lactic Acid Calcium 04/16/21 08:02 WBC RBC Hgb Hct MCV MCH MCHC RDW Plt Count MPV Immature Gran % (Auto) Neut % (Auto) Lymph % (Auto) [place] % (Auto) Eos % (Auto) Baso % (Auto) Lymph # (Auto) [place] # (Auto) Eos # (Auto) Baso # (Auto) Abs Immat Gran (auto) Absolute Neuts (auto) Absolute Nucleated RBC Nucleated RBC % (auto) Sodium 139 Potassium 5.1 Chloride 111 H Carbon Dioxide 20 L Anion Gap 13 BUN 69 H Creatinine 2.40 H Estim Creat Clear Calc 25.6 Estimated GFR 27 POC Glucose Random Glucose 186 H Lactic Acid Calcium 7.9 L Progress Note: A&P Assessment and plan (1) PAF (paroxysmal atrial fibrillation): Status: Acute (2) Chest pain: Status: Acute Plan [age] year gentleman presenting for Gram-negative bacteremia, if he without p.r.n. chest pain. He is back in sinus rhythm. On IV antibiotics. No further chest pain. Biomarkers are normal. Creatinine is improving. Continue anticoagulation as before. Will arrange stress test for as outpatient. Thank you for allowing me to participate in the care of your patient. Please feel free to contact me if you have any questions. Fall Risk Details Current Medications: Current Medications Acetaminophen (Acetaminophen 325 Mg Tablet) 650 mg PO Q6H PRN PRN Reason: Pain, Mild (Pain Scale 1-3) Last Admin: 04/15/21 19:41 Dose: 650 mg Documented by: Apixaban (Apixaban 5 Mg Tablet) 5 mg PO BID [facility] Last Admin: 04/16/21 08:22 Dose: 5 mg Documented by: Aspirin (Aspirin Enteric Coated 81 Mg Tablet.) 81 mg PO DAILY [facility] Last Admin: 04/16/21 08:22 Dose: 81 mg Documented by: Dextrose (Dextrose 50 % 25 Gm/50 Ml Syringe) 25 gm IVPUSH Q15M PRN; Protocol PRN Reason: per Hypoglycemia Standing Ord. Docusate Sodium (Docusate Sodium 100 Mg Capsule) 100 mg PO DAILY PRN PRN Reason: Constipation Dorzolamide/Timolol (Dorzolamide/Timolo 2.23%/0.68% 10 Ml Drbtl) 1 drop EYE-BOTH DAILY [facility] Last Admin: 04/16/21 08:23 Dose: 1 drop Documented by: Glucose (Glucose Gel 15 Gm Gel..Gram.) 15 gm PO Q15M PRN; Protocol PRN Reason: per Hypoglycemia Standing Ord. Ceftriaxone Sodium 1 gm/ (Sodium Chloride) 50 mls @ 100 mls/hr IV Q24H [facility] Last Infusion: 04/15/21 15:10 Dose: Infused Documented by: Insulin Glargine (Insulin Glargine,Hum.Rec.Anlog 100 Unit/Ml 10 Ml Vial) 12 unit SUBCUT BEDTIME [facility] Last Admin: 04/15/21 20:57 Dose: 12 unit Documented by: Insulin Human Lispro (Insulin Lispro 100 Unit/Ml 3 Ml Vial) 0 unit SUBCUT QIDACHS [facility]; Protocol Last Admin: 04/16/21 08:22 Dose: 2 unit Documented by: Latanoprost (Latanoprost 0.005 % Ophth Betina 2.5 Ml Drops) 1 drop EYE-BOTH BEDTIME [facility] Last Admin: 04/15/21 20:57 Dose: 1 drop Documented by: Metoprolol Succinate (Metoprolol Succinate Er 25 Mg Tab.Er.24h) 25 mg PO DAILY [facility]; Protocol Last Admin: 04/16/21 08:22 Dose: 25 mg Documented by: Omeprazole (Omeprazole 20 Mg Capsule.Dr) 20 mg PO DAILY [facility] Last Admin: 04/16/21 08:22 Dose: 20 mg Documented by: Ondansetron HCl (Ondansetron Hcl 4 Mg/2 Ml Vial) 4 mg IVPUSH Q8H PRN PRN Reason: Nausea and Vomiting Sodium Chloride (0.9 % Sodium Chloride Flush 3 Ml Syringe) 3 ml IVFLUSH QSHIFT [facility] Last Admin: 04/16/21 08:22 Dose: 3 ml Documented by: Time Spent With Patient Time: Total time spent is greater than 50% in coordination of care (as documented) at patient's floor/unit and/or counseling patient: Time with patient: 15 - 24 minutes Progress Note: Quality Stroke Does the patient have a stroke diagnosis?: No Procedures Date of Service Date of Service: 04/16/21
--- NOTE | 2021-04-16 12:06 | P.PNIM_ITS ---
Subjective Subjective Date of Service: 04/16/21 Interval History: seen and examined this morning with the assistance of a cuff slitter reporting fever overnight, chills this morning no abdominal pain, nausea or vomiting at this time reports intermittent dry cough, no sob Review of Systems Review of Systems: Yes all other systems are reviewed and are negative Constitutional Constitutional: Reports chills, Reports fever(s) and Reports poor appetite Cardiovascular Cardiovascular: Denies dyspnea Respiratory Respiratory: Reports cough and Denies dyspnea Gastrointestinal Gastrointestinal: Denies abdominal pain, Denies diarrhea, Denies nausea and Denies vomiting Physical Exam Vital Signs: Vital Signs: Last Vital Signs Temp 99.1 F 04/16/21 10:50 Pulse 74 04/16/21 10:50 Resp 18 04/16/21 10:50 BP 138/63 04/16/21 10:50 Pulse Ox 95 04/16/21 10:50 BMI result Body Mass Index 27.8 Const: General: cooperative, comfortable, no acute distress, alert and awake Nutritional Appearance: average body habitus Eyes: Pupils: Equal, round and reactive pupils present Resp: Effort & Inspection: normal respiratory effort and able to speak in complete sentences Auscultation: clear to auscultation bilaterally, no crackles, no rales and no rhonchi Cardio: Rate: regular rate Heart sounds: S1 normal heart sound present and S2 normal heart sound present GI: Inspection: No distended Palpation (GI): Soft to palpation and nontender Neuro: Cranial nerves: Yes Equal, round and reactive pupils present Extrem: Other: moving all 4 extremities spontaneously Objective Data Active Medications Acetaminophen (Acetaminophen 325 Mg Tablet) 650 mg PO Q6H PRN PRN Reason: Pain, Mild (Pain Scale 1-3) Last Admin: 04/15/21 19:41 Dose: 650 mg Documented by: RAFFAELE Apixaban (Apixaban 5 Mg Tablet) 5 mg PO BID [facility] Last Admin: 04/16/21 08:22 Dose: 5 mg Documented by: REAGAN Aspirin (Aspirin Enteric Coated 81 Mg Tablet.) 81 mg PO DAILY [facility] Last Admin: 04/16/21 08:22 Dose: 81 mg Documented by: REAGAN Dextrose (Dextrose 50 % 25 Gm/50 Ml Syringe) 25 gm IVPUSH Q15M PRN; Protocol PRN Reason: per Hypoglycemia Standing Ord. Docusate Sodium (Docusate Sodium 100 Mg Capsule) 100 mg PO DAILY PRN PRN Reason: Constipation Dorzolamide/Timolol (Dorzolamide/Timolo 2.23%/0.68% 10 Ml Drbtl) 1 drop EYE- BOTH DAILY [facility] Last Admin: 04/16/21 08:23 Dose: 1 drop Documented by: REAGAN Glucose (Glucose Gel 15 Gm Gel..Gram.) 15 gm PO Q15M PRN; Protocol PRN Reason: per Hypoglycemia Standing Ord. Ceftriaxone Sodium 1 gm/ (Sodium Chloride) 50 mls @ 100 mls/hr IV Q24H [facility] Last Infusion: 04/15/21 15:10 Dose: 0 mls/hr Documented by: REAGAN Insulin Glargine (Insulin Glargine,Hum.Rec.Anlog 100 Unit/Ml 10 Ml Vial) 12 unit SUBCUT BEDTIME [facility] Last Admin: 04/15/21 20:57 Dose: 12 unit Documented by: RAFFAELE Insulin Human Lispro (Insulin Lispro 100 Unit/Ml 3 Ml Vial) 0 unit SUBCUT QIDACHS [facility]; Protocol Last Admin: 04/16/21 08:22 Dose: 2 unit Documented by: REAGAN Latanoprost (Latanoprost 0.005 % Ophth Betina 2.5 Ml Drops) 1 drop EYE-BOTH BEDTIME [facility] Last Admin: 04/15/21 20:57 Dose: 1 drop Documented by: RAFFAELE Metoprolol Succinate (Metoprolol Succinate Er 25 Mg Tab.Er.24h) 25 mg PO DAILY [facility]; Protocol Last Admin: 04/16/21 08:22 Dose: 25 mg Documented by: REAGAN Omeprazole (Omeprazole 20 Mg Capsule.Dr) 20 mg PO DAILY [facility] Last Admin: 04/16/21 08:22 Dose: 20 mg Documented by: REAGAN Ondansetron HCl (Ondansetron Hcl 4 Mg/2 Ml Vial) 4 mg IVPUSH Q8H PRN PRN Reason: Nausea and Vomiting Sodium Chloride (0.9 % Sodium Chloride Flush 3 Ml Syringe) 3 ml IVFLUSH QSHIFT [facility] Last Admin: 04/16/21 08:22 Dose: 3 ml Documented by: REAGAN Labs CBC & Chem 7: 04/16/21 08:02 04/16/21 08:02 Labs: Laboratory Results - last 24 hr 04/15/21 04/15/21 04/15/21 12:35 15:57 19:46 MCV MCH MCHC RDW Plt Count MPV Immature Gran % (Auto) Neut % (Auto) Lymph % (Auto) [place] % (Auto) Eos % (Auto) Baso % (Auto) Lymph # (Auto) [place] # (Auto) Eos # (Auto) Baso # (Auto) Abs Immat Gran (auto) Absolute Neuts (auto) Absolute Nucleated RBC Nucleated RBC % (auto) Anion Gap Estim Creat Clear Calc Estimated GFR POC Glucose 215 H 144 H Random Glucose Lactic Acid 2.0 Calcium 04/16/21 04/16/21 04/16/21 07:48 08:02 08:02 MCV 93.8 MCH 30.7 MCHC 32.7 RDW 14.6 Plt Count 342 D MPV 10.6 Immature Gran % (Auto) 3.1 H Neut % (Auto) 86.1 H Lymph % (Auto) 4.9 L [place] % (Auto) 4.6 Eos % (Auto) 1.0 Baso % (Auto) 0.3 Lymph # (Auto) 0.8 L [place] # (Auto) 0.8 Eos # (Auto) 0.2 Baso # (Auto) 0.1 Abs Immat Gran (auto) 0.54 H Absolute Neuts (auto) 14.8 H Absolute Nucleated RBC 0.000 Nucleated RBC % (auto) 0.0 Anion Gap 13 Estim Creat Clear Calc 25.6 Estimated GFR 27 POC Glucose 153 H Random Glucose 186 H Lactic Acid Calcium 7.9 L Microbiology Microbiology Results: Microbiology 04/15/21 12:35 Blood Culture - Preliminary Blood - Venous Prelim: GNR Gram Stain only 04/14/21 01:40 Urine Culture - Preliminary Urine clean catch - Urine cline top Culture in progress. Assessment and Plan (1) Hydronephrosis: Status: Acute (2) Bladder wall thickening: Status: Acute (3) Atrial fibrillation with RVR: Status: Acute (4) Chest pain: Status: Acute (5) Bacteremia: Status: Acute Plan 75-year-old male with past medical history of hypertension, diabetes who presents to the hospital with complaints of chest pain found to have AFib with RVR as well as? YESSENIA GNR bacteremia s/2 BCx from 04/15 + for GNR Initially started on ceftriaxone for presumed urinary source; given persistent fever and increasing leukocytosis will broaden to zosyn until final culture results are available YESSENIA on CKD stage 3 to 4 Baseline SCr range 2 to 2.5, presented with 3.99, now 2.4 today improved with IV hydration, but there is a concern over post-renal issues contributing Urology consulted - recommends to bladder scan to ensure emptying Continue IVF New onset A Fib with RVR now in sinus on telemonitor Eliquis started this admission, echo done showring preserved EF Seen by Cardiology -rec outpatient ischemic workup/cardiology follow up Asymmetric bladder wall thickening concerning over neoplastic process raised on CT scan Urology following UA with some bacteria -see above HTN bp on the softer side hold antihypertensives Chest pain likely due to tachycardia ekg not suggestive of ACS resolved Question CHF echo showing preserved EF clinically not overloaded hold diuretics receiving fluids for YESSENIA, follow fluid status closely DM basal+bolus Full code DVT prophylaxis: Adam Attending: Dr. Iyer Quality Stroke Does the patient have a stroke diagnosis?: No VTE Prior VTE?: No VTE Risk Level:: Medical - moderate - high VTE Device Contraindication: Treatment Not Indicated VTE Drug Contraindication: N/A - Med Ordered
[2021-04-16 12:13] LABS: Glucose, Whole Blood 131 mg/dL (60-115)
[2021-04-16] MEDS: Piperacillin Sodium/Tazobactam 2.25 GM in 0.9 % Sodium Chloride 50 ML IV ×3 (12:32→23:45)
[2021-04-16] MEDS: Acetaminophen 325 MG TABLET 650 MG PO ×2 (12:33→23:46)
[2021-04-16] MEDS: Lactated Ringers 1,000 ML 100 ML IVCONT (14:51)
[2021-04-16 16:22] LABS: Glucose, Whole Blood 155 mg/dL (60-115)
[2021-04-16 19:47] LABS: Glucose, Whole Blood 206 mg/dL (60-115)
[2021-04-16] MEDS: Insulin Glargine,Hum.rec.anlog 100 UNIT/ML 10 ML VIAL 12 UNIT SUBCUT (20:36)
[2021-04-16] MEDS: Latanoprost 0.005 % Ophth Sol 2.5 ML DROPS 1 DROP EYE-BOTH (20:37)
[2021-04-17] VITALS (8 sets, daily range): BP systolic 101–155; BP diastolic 53–73; PULSE 63–85; RESP 16–20; TEMP 36.1–39.2; O2SAT 95–98
[2021-04-17] MEDS: Piperacillin Sodium/Tazobactam 2.25 GM in 0.9 % Sodium Chloride 50 ML IV ×4 (05:58→23:39)
[2021-04-17 06:59] LABS: MANUAL DIFF FLAG NO
[2021-04-17 07:02] LABS: Basophils Percent Auto 0.2 % (0-2); Eosinophils Absolute Auto 0.2 X10*3/uL (0.0-0.4); Eosinophils Percent Auto 1.4 % (0-4); Hematocrit 28.1 % (42.0-52.0); Hemoglobin 9.1 g/dl (14.0-18.0); Imm Gran Abs Auto 0.42 X10*3/uL (0.00-0.03); Imm Gran Pct Auto 2.6 % (0.0-0.4); Lymphocytes Percent Auto 5.9 % (20-40); Mean Corpuscular HGB Conc 32.4 g/dl (31.0-36.0); Mean Corpuscular Hemoglobin 30.3 pg (27.0-33.0); Mean Corpuscular Volume 93.7 fL (80.0-98.0); Mean Platelet Volume 10.6 fL (9.4-12.4); Monocytes Absolute Auto 0.8 X10*3/uL (0.1-1.2); Monocytes Percent Auto 4.9 % (2-11); Neutrophils Absolute Auto 13.8 x10*3/uL (2.0-8.3); Platelet Count 386 X10*3/uL (160-400); Red Cell Distribution Width 14.6 % (11.0-16.0); White Blood Count 16.2 X10*3/uL (4.8-10.8)
[2021-04-17 07:17] LABS: Anion Gap 12 (12-20); Blood Urea Nitrogen 59 mg/dL (9-16); Calcium 7.7 mg/dL (8.4-10.2); Carbon Dioxide 22 mmol/L (22-29); Chloride 108 mmol/L (96-108); Estimated Glomerular Filt Rate 24; Glucose Random 168 mg/dL (60-115); Potassium 5.2 mmol/L (3.3-5.1); Sodium 137 mmol/L (135-145)
[2021-04-17 07:51] LABS: Glucose, Whole Blood 169 mg/dL (60-115)
[2021-04-17] MEDS: Insulin Lispro 100 UNIT/ML 3 ML VIAL SUBCUT ×4 (08:10→20:47)
[2021-04-17] MEDS: Metoprolol Succinate ER 25 MG TAB.ER.24H PO (08:11)
[2021-04-17] MEDS: Acetaminophen 325 MG TABLET 650 MG PO ×3 (08:11→23:43)
[2021-04-17] MEDS: Omeprazole 20 MG CAPSULE.DR PO (08:11)
[2021-04-17] MEDS: Apixaban 5 MG TABLET PO ×2 (08:11→20:47)
[2021-04-17] MEDS: Aspirin Enteric Coated 81 MG TABLET.DR PO (08:11)
[2021-04-17] MEDS: 0.9 % Sodium Chloride Flush 3 ML SYRINGE IVFLUSH ×3 (08:12→20:49)
[2021-04-17] MEDS: Dorzolamide/Timolo 2.23%/0.68% 10 ML DRBTL 1 DROP EYE-BOTH (10:27)
--- NOTE | 2021-04-17 11:36 | MHC.CM.PN ---
Per ROUNDS discussion, Patient has spiked a fever and is not yet medically cleared for dc. Home is the goal for dc and CM will follow for possible need to adjust the dc plan.
[2021-04-17 11:44] LABS: Glucose, Whole Blood 208 mg/dL (60-115)
[2021-04-17] MEDS: Lactated Ringers 1,000 ML 80 ML IVCONT (11:48)
--- NOTE | 2021-04-17 12:42 | P.PNIM_ITS ---
Subjective Subjective Date of Service: 04/17/21 Interval History: seen and examined this morning follow up for bacteremia, uti still having fever but overall feeling better this morning, appetite has improved. Review of Systems Review of Systems: Yes all other systems are reviewed and are negative Physical Exam Vital Signs: Vital Signs: Last Vital Signs Temp 98.2 F 04/17/21 11:19 Pulse 65 04/17/21 11:19 Resp 17 04/17/21 11:19 BP 105/54 L 04/17/21 11:19 Pulse Ox 95 04/17/21 11:19 BMI result Body Mass Index 27.8 Const: General: cooperative, comfortable, no acute distress, alert and awake Nutritional Appearance: average body habitus Eyes: Pupils: Equal, round and reactive pupils present Resp: Effort & Inspection: normal respiratory effort and able to speak in complete sentences Auscultation: clear to auscultation bilaterally, no crackles, no rales and no rhonchi Cardio: Rate: regular rate Heart sounds: S1 normal heart sound present and S2 normal heart sound present GI: Inspection: No distended Palpation (GI): Soft to palpation and nontender Neuro: Cranial nerves: Yes Equal, round and reactive pupils present Extrem: Other: moving all 4 extremities spontaneously Objective Data Active Medications Acetaminophen (Acetaminophen 325 Mg Tablet) 650 mg PO Q6H PRN PRN Reason: Pain, Mild (Pain Scale 1-3) Last Admin: 04/17/21 08:11 Dose: 650 mg Documented by: MINERVA Apixaban (Apixaban 5 Mg Tablet) 5 mg PO BID [facility] Last Admin: 04/17/21 08:11 Dose: 5 mg Documented by: MINERVA Aspirin (Aspirin Enteric Coated 81 Mg Tablet.Dr) 81 mg PO DAILY [facility] Last Admin: 04/17/21 08:11 Dose: 81 mg Documented by: MINERVA Dextrose (Dextrose 50 % 25 Gm/50 Ml Syringe) 25 gm IVPUSH Q15M PRN; Protocol PRN Reason: per Hypoglycemia Standing Ord. Docusate Sodium (Docusate Sodium 100 Mg Capsule) 100 mg PO DAILY PRN PRN Reason: Constipation Dorzolamide/Timolol (Dorzolamide/Timolo 2.23%/0.68% 10 Ml Drbtl) 1 drop EYE- BOTH DAILY [facility] Last Admin: 04/17/21 10:27 Dose: 1 drop Documented by: MINERVA Glucose (Glucose Gel 15 Gm Gel..Gram.) 15 gm PO Q15M PRN; Protocol PRN Reason: per Hypoglycemia Standing Ord. Piperacillin Sod/Tazobactam (Sod 2.25 gm/ Sodium Chloride) 50 mls @ 100 mls/hr IV Q6H [facility] Last Admin: 04/17/21 11:47 Dose: 100 mls/hr Documented by: MINERVA Lactated Ringer's (Lr) 1,000 mls @ 80 mls/hr IVCONT .[id number] [facility] Stop: 04/17/21 23:29 Last Admin: 04/17/21 11:48 Dose: 80 mls/hr Documented by: MINERVA Insulin Glargine (Insulin Glargine,Hum.Rec.Anlog 100 Unit/Ml 10 Ml Vial) 12 unit SUBCUT BEDTIME [facility] Last Admin: 04/16/21 20:36 Dose: 12 unit Documented by: RAFFAELE Insulin Human Lispro (Insulin Lispro 100 Unit/Ml 3 Ml Vial) 0 unit SUBCUT QIDACHS [facility]; Protocol Last Admin: 04/17/21 11:48 Dose: 4 unit Documented by: MINERVA Latanoprost (Latanoprost 0.005 % Ophth Betina 2.5 Ml Drops) 1 drop EYE-BOTH BEDTIME [facility] Last Admin: 04/16/21 20:37 Dose: 1 drop Documented by: RAFFAELE Metoprolol Succinate (Metoprolol Succinate Er 25 Mg Tab.Er.24h) 25 mg PO DAILY [facility]; Protocol Last Admin: 04/17/21 08:11 Dose: 25 mg Documented by: MINERVA Omeprazole (Omeprazole 20 Mg Capsule.Dr) 20 mg PO DAILY [facility] Last Admin: 04/17/21 08:11 Dose: 20 mg Documented by: MINERVA Ondansetron HCl (Ondansetron Hcl 4 Mg/2 Ml Vial) 4 mg IVPUSH Q8H PRN PRN Reason: Nausea and Vomiting Sodium Chloride (0.9 % Sodium Chloride Flush 3 Ml Syringe) 3 ml IVFLUSH QSHIFT [facility] Last Admin: 04/17/21 08:12 Dose: 3 ml Documented by: MINERVA Labs CBC & Chem 7: 04/17/21 06:30 04/17/21 06:30 Labs: Laboratory Results - last 24 hr 04/16/21 04/16/21 04/17/21 16:18 19:43 06:30 MCV 93.7 MCH 30.3 MCHC 32.4 RDW 14.6 Plt Count 386 MPV 10.6 Immature Gran % (Auto) 2.6 H Neut % (Auto) 85.0 H Lymph % (Auto) 5.9 L [place] % (Auto) 4.9 Eos % (Auto) 1.4 Baso % (Auto) 0.2 Lymph # (Auto) 1.0 L [place] # (Auto) 0.8 Eos # (Auto) 0.2 Baso # (Auto) 0.0 Abs Immat Gran (auto) 0.42 H Absolute Neuts (auto) 13.8 H Absolute Nucleated RBC 0.000 Nucleated RBC % (auto) 0.0 Anion Gap Estim Creat Clear Calc Estimated GFR POC Glucose 155 H 206 H Random Glucose Calcium 04/17/21 04/17/21 04/17/21 06:30 07:39 11:23 MCV MCH MCHC RDW Plt Count MPV Immature Gran % (Auto) Neut % (Auto) Lymph % (Auto) [place] % (Auto) Eos % (Auto) Baso % (Auto) Lymph # (Auto) [place] # (Auto) Eos # (Auto) Baso # (Auto) Abs Immat Gran (auto) Absolute Neuts (auto) Absolute Nucleated RBC Nucleated RBC % (auto) Anion Gap 12 Estim Creat Clear Calc 23.0 Estimated GFR 24 POC Glucose 169 H 208 H Random Glucose 168 H Calcium 7.7 L Microbiology Microbiology Results: Microbiology 04/15/21 12:35 Blood Culture - Preliminary Blood - Venous Gram negative sherrell 04/15/21 12:35 Blood Culture - Preliminary Blood - Venous Gram negative sherrell 04/14/21 01:40 Urine Culture - Final Urine clean catch - Urine cline top Escherichia coli Streptococcus viridans group 04/16/21 04:01 Blood Culture - Preliminary Blood - Venous No growth after 24 hours. 04/16/21 04:01 Blood Culture - Preliminary Blood - Venous No growth after 24 hours. Assessment and Plan (1) PAF (paroxysmal atrial fibrillation): Status: Acute (2) Bacteremia: Status: Acute (3) Bladder wall thickening: Status: Acute (4) UTI (urinary tract infection): Status: Acute Plan 75-year-old male with past medical history of hypertension, diabetes who presents to the hospital with complaints of chest pain found to have AFib with RVR as well as? 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 Baseline SCr range 2 to 2.5, presented with 3.99, still elevated improved with IV hydration, but there is a concern over post-renal issues contributing Urology consulted - recommends to bladder scan to ensure emptying; outpatient urology FU for cystoscopy Continue IVF follow renal function New onset A Fib with RVR now in sinus on telemonitor Eliquis started this admission, echo done showring preserved EF Metoprolol started by cardiology for rate control Seen by Cardiology -rec outpatient ischemic workup/cardiology follow up Asymmetric bladder wall thickening concerning over neoplastic process raised on CT scan seen by urology rec outpatient urology follow up HTN bp on the softer side metoprolol started by cardiology for afib rate control hold baseline antihypertensives Chest pain likely due to tachycardia ekg not suggestive of ACS resolved Question CHF echo showing preserved EF clinically not overloaded hold diuretics receiving fluids for YESSENIA, follow fluid status closely DM basal+bolus Full code DVT prophylaxis: Adam Attending: Dr. Iyer Quality Stroke Does the patient have a stroke diagnosis?: No VTE Prior VTE?: No VTE Risk Level:: Medical - moderate - high VTE Device Contraindication: Treatment Not Indicated VTE Drug Contraindication: N/A - Med Ordered
[2021-04-17 16:52] LABS: Glucose, Whole Blood 183 mg/dL (60-115)
[2021-04-17 20:33] LABS: Glucose, Whole Blood 167 mg/dL (60-115)
[2021-04-17] MEDS: Insulin Glargine,Hum.rec.anlog 100 UNIT/ML 10 ML VIAL 12 UNIT SUBCUT (20:46)
[2021-04-17] MEDS: Latanoprost 0.005 % Ophth Sol 2.5 ML DROPS 1 DROP EYE-BOTH (20:49)
[2021-04-18] VITALS (7 sets, daily range): BP systolic 109–169; BP diastolic 52–79; PULSE 65–85; RESP 18–20; TEMP 36.7–38.4; O2SAT 94–97
[2021-04-18] MEDS: Piperacillin Sodium/Tazobactam 2.25 GM in 0.9 % Sodium Chloride 50 ML IV ×2 (06:30→12:36)
[2021-04-18 07:19] LABS: Hematocrit 31.7 % (42.0-52.0); Hemoglobin 10.1 g/dl (14.0-18.0); Mean Corpuscular HGB Conc 31.9 g/dl (31.0-36.0); Mean Corpuscular Volume 94.1 fL (80.0-98.0); Mean Platelet Volume 10.9 fL (9.4-12.4); Platelet Count 452 X10*3/uL (160-400); Red Blood Count 3.37 X10*6/uL (4.60-5.80); Red Cell Distribution Width 14.6 % (11.0-16.0); White Blood Count 19.2 X10*3/uL (4.8-10.8)
[2021-04-18] MEDS: Insulin Lispro 100 UNIT/ML 3 ML VIAL SUBCUT ×4 (07:48→21:09)
[2021-04-18 08:01] LABS: Anion Gap 14 (12-20); Blood Urea Nitrogen 47 mg/dL (9-16); Calcium 7.9 mg/dL (8.4-10.2); Carbon Dioxide 22 mmol/L (22-29); Chloride 107 mmol/L (96-108); Creatinine Clr Calc Pharmacy 24.8; Estimated Glomerular Filt Rate 26; Glucose Random 196 mg/dL (60-115); Potassium 5.6 mmol/L (3.3-5.1); Sodium 137 mmol/L (135-145)
[2021-04-18 08:03] LABS: Glucose, Whole Blood 172 mg/dL (60-115)
[2021-04-18] MEDS: Acetaminophen 325 MG TABLET 650 MG PO (08:47)
[2021-04-18] MEDS: 0.9 % Sodium Chloride Flush 3 ML SYRINGE IVFLUSH ×3 (08:48→21:09)
[2021-04-18] MEDS: Omeprazole 20 MG CAPSULE.DR PO (08:48)
[2021-04-18] MEDS: Aspirin Enteric Coated 81 MG TABLET.DR PO (08:48)
[2021-04-18] MEDS: Apixaban 5 MG TABLET PO ×2 (08:48→21:09)
[2021-04-18] MEDS: Metoprolol Succinate ER 25 MG TAB.ER.24H PO (08:48)
[2021-04-18] MEDS: Dorzolamide/Timolo 2.23%/0.68% 10 ML DRBTL 1 DROP EYE-BOTH (08:52)
[2021-04-18 09:54] LABS: Alanine Aminotransferase 45 U/L (0-40); Albumin Level 2.9 g/dL (3.5-5.0); Alkaline Phosphatase 129 U/L (39-117); Aspartate Amino Transferase 64 U/L (5-37); Bilirubin Direct 0.8 mg/dL (0.0-0.5); Bilirubin Total 1.3 mg/dL (0.0-1.0); Total Protein 5.9 g/dL (6.5-8.0)
[2021-04-18] MEDS: Sodium Zirconium Cyclosilicate 10 GM POWD.PACK PO (09:55)
[2021-04-18 11:49] LABS: Glucose, Whole Blood 196 mg/dL (60-115)
[2021-04-18] MEDS: oxyCODONE HCl Immed Release 5 MG TABLET PO (13:18)
--- NOTE | 2021-04-18 13:47 | P.PNIM_ITS ---
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 began having abdominal pain overnight no vomiting, no diarrhea; had a BM yesterday still with intermittent fever Review of Systems Review of Systems: Yes all other systems are reviewed and are negative Constitutional Constitutional: Denies chills and Reports fever(s) Cardiovascular Cardiovascular: Denies dyspnea Respiratory Respiratory: Denies dyspnea Gastrointestinal Gastrointestinal: Reports abdominal pain, Denies nausea and Denies vomiting Physical Exam Vital Signs: Vital Signs: Last Vital Signs Temp 99.3 F 04/18/21 12:00 Pulse 65 04/18/21 12:00 Resp 18 04/18/21 12:00 BP 109/52 L 04/18/21 12:00 Pulse Ox 95 04/18/21 12:00 BMI result Body Mass Index 27.8 Const: General: cooperative, alert, awake and ill appearing Nutritional Appearance: average body habitus Eyes: Pupils: Equal, round and reactive pupils present Resp: Effort & Inspection: normal respiratory effort and able to speak in complete sentences Auscultation: clear to auscultation bilaterally, no crackles, no rales and no rhonchi Cardio: Rate: regular rate Heart sounds: S1 normal heart sound present and S2 normal heart sound present GI: Other: some tenderness RUQ; softly distended; +BS Neuro: Cranial nerves: Yes Equal, round and reactive pupils present Extrem: Other: moving all 4 extremities spontaneously Objective Data Active Medications Acetaminophen (Acetaminophen 325 Mg Tablet) 650 mg PO Q6H PRN PRN Reason: Pain, Mild (Pain Scale 1-3) Last Admin: 04/18/21 08:47 Dose: 650 mg Documented by: FRANC Apixaban (Apixaban 5 Mg Tablet) 5 mg PO BID [facility] Last Admin: 04/18/21 08:48 Dose: 5 mg Documented by: FRANC Aspirin (Aspirin Enteric Coated 81 Mg Tablet.) 81 mg PO DAILY [facility] Last Admin: 04/18/21 08:48 Dose: 81 mg Documented by: FRANC Dextrose (Dextrose 50 % 25 Gm/50 Ml Syringe) 25 gm IVPUSH Q15M PRN; Protocol PRN Reason: per Hypoglycemia Standing Ord. Docusate Sodium (Docusate Sodium 100 Mg Capsule) 100 mg PO DAILY PRN PRN Reason: Constipation Dorzolamide/Timolol (Dorzolamide/Timolo 2.23%/0.68% 10 Ml Drbtl) 1 drop EYE- BOTH DAILY [facility] Last Admin: 04/18/21 08:52 Dose: 1 drop Documented by: FRANC Glucose (Glucose Gel 15 Gm Gel..Gram.) 15 gm PO Q15M PRN; Protocol PRN Reason: per Hypoglycemia Standing Ord. Piperacillin Sod/Tazobactam (Sod 2.25 gm/ Sodium Chloride) 50 mls @ 100 mls/hr IV Q6H [facility] Last Infusion: 04/18/21 13:36 Dose: 0 mls/hr Documented by: FRANC Insulin Glargine (Insulin Glargine,Hum.Rec.Anlog 100 Unit/Ml 10 Ml Vial) 12 unit SUBCUT BEDTIME [facility] Last Admin: 04/17/21 20:46 Dose: 12 unit Documented by: AARON Insulin Human Lispro (Insulin Lispro 100 Unit/Ml 3 Ml Vial) 0 unit SUBCUT QIDACHS [facility]; Protocol Last Admin: 04/18/21 11:35 Dose: 2 unit Documented by: FRANC Latanoprost (Latanoprost 0.005 % Ophth Betina 2.5 Ml Drops) 1 drop EYE-BOTH BEDTIME [facility] Last Admin: 04/17/21 20:49 Dose: 1 drop Documented by: AARON Metoprolol Succinate (Metoprolol Succinate Er 25 Mg Tab.Er.24h) 25 mg PO DAILY [facility]; Protocol Last Admin: 04/18/21 08:48 Dose: 25 mg Documented by: FRANC Omeprazole (Omeprazole 20 Mg Capsule.Dr) 20 mg PO DAILY [facility] Last Admin: 04/18/21 08:48 Dose: 20 mg Documented by: FRANC Ondansetron HCl (Ondansetron Hcl 4 Mg/2 Ml Vial) 4 mg IVPUSH Q8H PRN PRN Reason: Nausea and Vomiting Sodium Chloride (0.9 % Sodium Chloride Flush 3 Ml Syringe) 3 ml IVFLUSH QSHIFT [facility] Last Admin: 04/18/21 08:48 Dose: 3 ml Documented by: FRANC Labs CBC & Chem 7: 04/18/21 06:28 04/18/21 06:28 Labs: Laboratory Results - last 24 hr 04/17/21 04/17/21 04/18/21 16:33 20:28 06:28 MCV 94.1 MCH 30.0 MCHC 31.9 RDW 14.6 Plt Count 452 H MPV 10.9 Absolute Nucleated RBC 0.000 Nucleated RBC % (auto) 0.0 Anion Gap Estim Creat Clear Calc Estimated GFR POC Glucose 183 H 167 H Random Glucose Calcium Total Bilirubin Direct Bilirubin AST ALT Alkaline Phosphatase Total Protein Albumin 04/18/21 04/18/21 04/18/21 06:28 07:57 11:15 MCV MCH MCHC RDW Plt Count MPV Absolute Nucleated RBC Nucleated RBC % (auto) Anion Gap 14 Estim Creat Clear Calc 24.8 Estimated GFR 26 POC Glucose 172 H 196 H Random Glucose 196 H Calcium 7.9 L Total Bilirubin 1.3 H Direct Bilirubin 0.8 H AST 64 H ALT 45 H Alkaline Phosphatase 129 H Total Protein 5.9 L Albumin 2.9 L Microbiology Microbiology Results: Microbiology 04/15/21 12:35 Blood Culture - Final Blood - Venous Escherichia coli 04/15/21 12:35 Blood Culture - Final Blood - Venous Escherichia coli 04/16/21 04:01 Blood Culture - Preliminary Blood - Venous No growth after 48 hours. 04/16/21 04:01 Blood Culture - Preliminary Blood - Venous No growth after 48 hours. 04/14/21 01:40 Urine Culture - Final Urine clean catch - Urine cline top Escherichia coli Streptococcus viridans group Assessment and Plan (1) UTI (urinary tract infection): Status: Acute (2) Bacteremia: Status: Acute (3) PAF (paroxysmal atrial fibrillation): Status: Acute (4) Hydronephrosis: Status: Acute (5) Bladder wall thickening: Status: Acute Plan 75-year-old male with past medical history of hypertension, diabetes who presents to the hospital with complaints of chest pain found to have AFib with RVR as well as? 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 Baseline SCr range 2 to 2.5, presented with 3.99, still elevated improved with IV hydration, but there is a concern over post-renal issues contributing Urology consulted - recommends to bladder scan to ensure emptying; outpatient urology FU for cystoscopy Continue IVF follow renal function hyperkalemia will order lokelma follow BMP abdominal pain will repeat ct scan of abdomen and check liver profile New onset A Fib with RVR now in sinus on telemonitor Eliquis started this admission, echo done showing preserved EF Metoprolol started for rate control Seen by Cardiology -rec outpatient ischemic workup/cardiology follow up Asymmetric bladder wall thickening concerning over neoplastic process raised on CT scan seen by urology rec outpatient urology follow up HTN bp on the softer side metoprolol started by cardiology for afib rate control hold lisinopril follow BP closely Chest pain likely due to tachycardia ekg not suggestive of ACS resolved Question CHF echo showing preserved EF clinically not overloaded hold home lasix for now follow fluid status closely DM pioglitazone, jardiance on hold continue Lantus, SSI Full code DVT prophylaxis: Adam Attending: Dr. Love Quality Stroke Does the patient have a stroke diagnosis?: No VTE Prior VTE?: No VTE Risk Level:: Medical - moderate - high VTE Device Contraindication: Treatment Not Indicated VTE Drug Contraindication: N/A - Med Ordered
--- NOTE | 2021-04-18 15:36 | W.PM.IDCN ---
History of Present Illness Data of Consult Service Date: 04/18/21 Requesting physician: Carmen Zayas Primary Care Provider: MD JUANA Cerda Reason for consult: leukocytosis He has presented to hospital with chest pain and abdominal discomfort,epigastric for two weeks. He has had fever and chills He has E coli bacteremia sensitive to Ceftriaxone He has CT left hydronephrosis with concern over obstruction ?neoplasm lateral bladder He has persistent leukocytosis and some diarrhea. He is on Zosyn He has seen Urology Review of Systems Review of Systems: Yes all other systems are reviewed and are negative [facility] Past Medical History Medical History Diabetes 1.5, managed as type 2 High cholesterol Hypertension Family History Family History Other No family history of coronary artery disease Family history: reviewed and not pertinent Surgical History Surgical History No pertinent past surgical history Social History Social History Household Members: Children Housing: House Do you presently have visiting nurse or other home services: No Alcohol intake: never Patient Tobacco Use Status: Former Tobacco user Advance Directives: No service: No Meds Allergies Allergy/AdvReac Type Severity Reaction Status Date / Time No Known Allergies Allergy Mild NONE Verified 04/13/21 18:49 Active Medications: Current Medications Acetaminophen (Acetaminophen 325 Mg Tablet) 650 mg PO Q6H PRN PRN Reason: Pain, Mild (Pain Scale 1-3) Last Admin: 04/18/21 08:47 Dose: 650 mg Documented by: Apixaban (Apixaban 5 Mg Tablet) 5 mg PO BID [facility] Last Admin: 04/18/21 08:48 Dose: 5 mg Documented by: Aspirin (Aspirin Enteric Coated 81 Mg Tablet.) 81 mg PO DAILY [facility] Last Admin: 04/18/21 08:48 Dose: 81 mg Documented by: Dextrose (Dextrose 50 % 25 Gm/50 Ml Syringe) 25 gm IVPUSH Q15M PRN; Protocol PRN Reason: per Hypoglycemia Standing Ord. Docusate Sodium (Docusate Sodium 100 Mg Capsule) 100 mg PO DAILY PRN PRN Reason: Constipation Dorzolamide/Timolol (Dorzolamide/Timolo 2.23%/0.68% 10 Ml Drbtl) 1 drop EYE-BOTH DAILY [facility] Last Admin: 04/18/21 08:52 Dose: 1 drop Documented by: Glucose (Glucose Gel 15 Gm Gel..Gram.) 15 gm PO Q15M PRN; Protocol PRN Reason: per Hypoglycemia Standing Ord. Piperacillin Sod/Tazobactam (Sod 2.25 gm/ Sodium Chloride) 50 mls @ 100 mls/hr IV Q6H [facility] Last Infusion: 04/18/21 13:36 Dose: Infused Documented by: Insulin Glargine (Insulin Glargine,Hum.Rec.Anlog 100 Unit/Ml 10 Ml Vial) 12 unit SUBCUT BEDTIME [facility] Last Admin: 04/17/21 20:46 Dose: 12 unit Documented by: Insulin Human Lispro (Insulin Lispro 100 Unit/Ml 3 Ml Vial) 0 unit SUBCUT QIDACHS [facility]; Protocol Last Admin: 04/18/21 11:35 Dose: 2 unit Documented by: Latanoprost (Latanoprost 0.005 % Ophth Betina 2.5 Ml Drops) 1 drop EYE-BOTH BEDTIME [facility] Last Admin: 04/17/21 20:49 Dose: 1 drop Documented by: Metoprolol Succinate (Metoprolol Succinate Er 25 Mg Tab.Er.24h) 25 mg PO DAILY [facility]; Protocol Last Admin: 04/18/21 08:48 Dose: 25 mg Documented by: Omeprazole (Omeprazole 20 Mg Capsule.Dr) 20 mg PO DAILY [facility] Last Admin: 04/18/21 08:48 Dose: 20 mg Documented by: Ondansetron HCl (Ondansetron Hcl 4 Mg/2 Ml Vial) 4 mg IVPUSH Q8H PRN PRN Reason: Nausea and Vomiting Sodium Chloride (0.9 % Sodium Chloride Flush 3 Ml Syringe) 3 ml IVFLUSH QSHIFT [facility] Last Admin: 04/18/21 08:48 Dose: 3 ml Documented by: Home Medications Medication Instructions Recorded Confirmed Last Taken Type furosemide 20 mg tablet 1 tab PO DAILY 01/03/20 04/14/21 Unknown History insulin aspart U-100 100 unit/mL 2 - 15 unit SUBCUT TIDAC 01/03/20 04/14/21 Unknown History (3 mL) subcutaneous pen (Novolog Flexpen U-100 Insulin aspart) latanoprost 0.005 % eye drops 1 drp OPHTHALMIC (EYE) BEDTIME 01/03/20 04/14/21 Unknown History omeprazole 20 mg capsule,delayed 1 cap PO DAILY@0630 01/03/20 04/14/21 Unknown History release pioglitazone 45 mg tablet 1 tab PO DAILY 01/03/20 04/14/21 Unknown History atorvastatin 40 mg tablet 1 tab PO BEDTIME 04/14/21 04/14/21 Unknown History dorzolamide 22.3 mg-timolol 6.8 1 drp OPHTHALMIC (EYE) DAILY 04/14/21 04/14/21 Unknown History mg/mL eye drops empagliflozin 25 mg tablet 1 tab PO DAILY 04/14/21 04/14/21 Unknown History (Jardiance) fenofibrate 160 mg tablet 1 tab PO QAM 04/14/21 04/14/21 Unknown History insulin glargine 100 unit/mL (3 12 unit SUBCUT BEDTIME 04/14/21 04/14/21 Unknown History mL) subcutaneous pen (Lantus Solostar U-100 Insulin) lisinopril 40 mg tablet 1 tab PO DAILY 04/14/21 04/14/21 Unknown History Physical Exam Vital Signs: Vital Signs: Last Vital Signs Temp 99.3 F 04/18/21 12:00 Pulse 65 04/18/21 12:00 Resp 18 04/18/21 12:00 BP 109/52 L 04/18/21 12:00 Pulse Ox 95 04/18/21 12:00 BMI result Body Mass Index 27.8 Const: General: cooperative HENMT: Head: Yes normal to inspection Mouth: Normal oral and palatal mucosa present Resp: Effort & Inspection: normal respiratory effort Cardio: Rate: regular rate Rhythm: regular rhythm GI: Palpation (GI): Soft to palpation and Tenderness to palpation present (GI) (epigastric) : General: Yes no CVA tenderness Back/Spine/Pelvis: Back: no CVA tenderness Results Labs CBC & Chem 7: 04/28/21 05:51 04/28/21 05:51 Labs: Short CBC 04/18/21 Range/Units 06:28 WBC 19.2 H (4.8-10.8) X10*3/uL Hgb 10.1 L (14.0-18.0) g/dl Hct 31.7 L (42.0-52.0) % Plt Count 452 H (160-400) X10*3/uL BMP 04/18/21 06:28 Sodium 137 Potassium 5.6 H Chloride 107 Carbon Dioxide 22 BUN 47 H Creatinine 2.48 H Calcium 7.9 L Liver Function 04/18/21 Range/Units 06:28 Total Bilirubin 1.3 H (0.0-1.0) mg/dL Direct Bilirubin 0.8 H (0.0-0.5) mg/dL AST 64 H (5-37) U/L ALT 45 H (0-40) U/L Alkaline Phosphatase 129 H (39-117) U/L Albumin 2.9 L (3.5-5.0) g/dL Microbiology Microbiology Results: Microbiology 04/15/21 12:35 Blood - Venous Blood Culture - Final Escherichia coli 04/15/21 12:35 Blood - Venous Blood Culture - Final Escherichia coli 04/16/21 04:01 Blood - Venous Blood Culture - Preliminary No growth after 48 hours. 04/16/21 04:01 Blood - Venous Blood Culture - Preliminary No growth after 48 hours. 04/14/21 01:40 Urine clean catch - Urine cline top Urine Culture - Final Escherichia coli Streptococcus viridans group Assessment and Plan (1) UTI (urinary tract infection): Status: Acute (2) Bacteremia: Status: Resolved He has leukemoid response to infection with increasing WBC He has some partial obstruction causing some inflammation but is being seen by Urology He also has diarrhea,no Cdiff seen He has had cleared bacteremia (3) Hydronephrosis: Status: Acute (4) Bladder wall thickening: Status: Acute (5) Bladder outlet obstruction: Status: Acute Plan Ceftriaxone since is best drug for urine Follow Urology?stent/other Cdiff if diarrhea
[2021-04-18 16:11] LABS: Glucose, Whole Blood 213 mg/dL (60-115)
[2021-04-18] MEDS: cefTRIAXone sodium 1 GM in 0.9 % Sodium Chloride 50 ML IV (16:43)
[2021-04-18 20:08] LABS: Glucose, Whole Blood 230 mg/dL (60-115)
[2021-04-18] MEDS: Insulin Glargine,Hum.rec.anlog 100 UNIT/ML 10 ML VIAL 12 UNIT SUBCUT (21:09)
[2021-04-18] MEDS: Latanoprost 0.005 % Ophth Sol 2.5 ML DROPS 1 DROP EYE-BOTH (21:11)
[2021-04-19 03:56] VITALS: BP 119/58; PULSE 85; RESP 18; TEMP 37; O2SAT 93
[2021-04-19 06:24] LABS: Hematocrit 27.6 % (42.0-52.0); Mean Corpuscular HGB Conc 32.6 g/dl (31.0-36.0); Mean Corpuscular Hemoglobin 30.7 pg (27.0-33.0); Mean Corpuscular Volume 94.2 fL (80.0-98.0); Mean Platelet Volume 10.2 fL (9.4-12.4); Platelet Count 460 X10*3/uL (160-400); Red Blood Count 2.93 X10*6/uL (4.60-5.80); Red Cell Distribution Width 14.2 % (11.0-16.0); White Blood Count 17.5 X10*3/uL (4.8-10.8)
[2021-04-19 06:54] LABS: Alanine Aminotransferase 36 U/L (0-40); Albumin Level 2.6 g/dL (3.5-5.0); Alkaline Phosphatase 108 U/L (39-117); Anion Gap 13 (12-20); Aspartate Amino Transferase 54 U/L (5-37); Bilirubin Direct 0.6 mg/dL (0.0-0.5); Blood Urea Nitrogen 43 mg/dL (9-16); Calcium 7.6 mg/dL (8.4-10.2); Carbon Dioxide 20 mmol/L (22-29); Chloride 107 mmol/L (96-108); Creatinine Clr Calc Pharmacy 25.3; Estimated Glomerular Filt Rate 26; Glucose Random 161 mg/dL (60-115); Potassium 4.7 mmol/L (3.3-5.1); Sodium 135 mmol/L (135-145); Total Protein 5.3 g/dL (6.5-8.0)
[2021-04-19 07:32] LABS: Glucose, Whole Blood 136 mg/dL (60-115)
[2021-04-19 08:00] VITALS: BP 139/65; PULSE 88; RESP 19; TEMP 37.6; O2SAT 94
[2021-04-19] MEDS: 0.9 % Sodium Chloride Flush 3 ML SYRINGE IVFLUSH ×3 (09:21→21:32)
[2021-04-19] MEDS: Dorzolamide/Timolo 2.23%/0.68% 10 ML DRBTL 1 DROP EYE-BOTH (09:21)
[2021-04-19] MEDS: Apixaban 5 MG TABLET PO ×2 (09:21→21:31)
[2021-04-19] MEDS: Metoprolol Succinate ER 25 MG TAB.ER.24H PO (09:22)
[2021-04-19] MEDS: Omeprazole 20 MG CAPSULE.DR PO (09:22)
[2021-04-19] MEDS: Aspirin Enteric Coated 81 MG TABLET.DR PO (09:22)
--- NOTE | 2021-04-19 11:19 | P.PNIM_ITS ---
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 no abdominal pain no diarrhea, nausea or vomiting; although abdomen feels a little bloated reports a BM each day during admission, but not yet today, no diarrhea Review of Systems Review of Systems: Yes all other systems are reviewed and are negative Constitutional Constitutional: Denies chills and Denies fever(s) Cardiovascular Cardiovascular: Denies dyspnea Respiratory Respiratory: Denies cough and Denies dyspnea Gastrointestinal Gastrointestinal: Denies abdominal pain, Reports bloating, Denies diarrhea, Denies nausea and Denies vomiting Physical Exam Vital Signs: Vital Signs: Last Vital Signs Temp 99.6 F 04/19/21 08:00 Pulse 88 04/19/21 08:00 Resp 19 04/19/21 08:00 BP 139/65 04/19/21 08:00 Pulse Ox 94 04/19/21 08:00 BMI result Body Mass Index 27.8 Const: General: cooperative, comfortable, no acute distress, alert and awake Nutritional Appearance: average body habitus Eyes: Pupils: Equal, round and reactive pupils present Resp: Effort & Inspection: normal respiratory effort and able to speak in complete sentences Auscultation: clear to auscultation bilaterally, no crackles, no rales and no rhonchi Cardio: Rate: regular rate Heart sounds: S1 normal heart sound present and S2 normal heart sound present GI: Other: softly distended ?slight improvement from yesterday, non-tender; + BS Palpation (GI): not rigid Neuro: Cranial nerves: Yes Equal, round and reactive pupils present Extrem: Other: moving all 4 extremities spontaneously Objective Data Active Medications Acetaminophen (Acetaminophen 325 Mg Tablet) 650 mg PO Q6H PRN PRN Reason: Pain, Mild (Pain Scale 1-3) Last Admin: 04/18/21 08:47 Dose: 650 mg Documented by: FRANC Apixaban (Apixaban 5 Mg Tablet) 5 mg PO BID [facility] Last Admin: 04/19/21 09:21 Dose: 5 mg Documented by: FRANC Aspirin (Aspirin Enteric Coated 81 Mg Tablet.) 81 mg PO DAILY [facility] Last Admin: 04/19/21 09:22 Dose: 81 mg Documented by: FRANC Dextrose (Dextrose 50 % 25 Gm/50 Ml Syringe) 25 gm IVPUSH Q15M PRN; Protocol PRN Reason: per Hypoglycemia Standing Ord. Docusate Sodium (Docusate Sodium 100 Mg Capsule) 100 mg PO DAILY PRN PRN Reason: Constipation Dorzolamide/Timolol (Dorzolamide/Timolo 2.23%/0.68% 10 Ml Drbtl) 1 drop EYE- BOTH DAILY [facility] Last Admin: 04/19/21 09:21 Dose: 1 drop Documented by: FRANC Glucose (Glucose Gel 15 Gm Gel..Gram.) 15 gm PO Q15M PRN; Protocol PRN Reason: per Hypoglycemia Standing Ord. Ceftriaxone Sodium 1 gm/ (Sodium Chloride) 50 mls @ 100 mls/hr IV Q24H [facility] Last Infusion: 04/18/21 17:24 Dose: 0 mls/hr Documented by: FRANC Insulin Glargine (Insulin Glargine,Hum.Rec.Anlog 100 Unit/Ml 10 Ml Vial) 12 unit SUBCUT BEDTIME [facility] Last Admin: 04/18/21 21:09 Dose: 12 unit Documented by: AARON Insulin Human Lispro (Insulin Lispro 100 Unit/Ml 3 Ml Vial) 0 unit SUBCUT QIDACHS [facility]; Protocol Last Admin: 04/19/21 07:45 Dose: Not Given Documented by: FRANC Non-Admin Reason: No Insulin Coverage Latanoprost (Latanoprost 0.005 % Ophth Betina 2.5 Ml Drops) 1 drop EYE-BOTH BEDTIME [facility] Last Admin: 04/18/21 21:11 Dose: 1 drop Documented by: AARON Metoprolol Succinate (Metoprolol Succinate Er 25 Mg Tab.Er.24h) 25 mg PO DAILY [facility]; Protocol Last Admin: 04/19/21 09:22 Dose: 25 mg Documented by: FRANC Omeprazole (Omeprazole 20 Mg Capsule.Dr) 20 mg PO DAILY [facility] Last Admin: 04/19/21 09:22 Dose: 20 mg Documented by: FRANC Ondansetron HCl (Ondansetron Hcl 4 Mg/2 Ml Vial) 4 mg IVPUSH Q8H PRN PRN Reason: Nausea and Vomiting Sodium Chloride (0.9 % Sodium Chloride Flush 3 Ml Syringe) 3 ml IVFLUSH QSHIFT [facility] Last Admin: 04/19/21 09:21 Dose: 3 ml Documented by: FRANC Labs CBC & Chem 7: 04/19/21 06:10 04/19/21 06:10 Labs: Laboratory Results - last 24 hr 04/18/21 04/18/21 04/18/21 11:15 15:59 20:03 MCV MCH MCHC RDW Plt Count MPV Absolute Nucleated RBC Nucleated RBC % (auto) Anion Gap Estim Creat Clear Calc Estimated GFR POC Glucose 196 H 213 H 230 H Random Glucose Calcium Total Bilirubin Direct Bilirubin AST ALT Alkaline Phosphatase Total Protein Albumin 04/19/21 04/19/21 04/19/21 06:10 06:10 07:27 MCV 94.2 MCH 30.7 MCHC 32.6 RDW 14.2 Plt Count 460 H MPV 10.2 Absolute Nucleated RBC 0.000 Nucleated RBC % (auto) 0.0 Anion Gap 13 Estim Creat Clear Calc 25.3 Estimated GFR 26 POC Glucose 136 H Random Glucose 161 H Calcium 7.6 L Total Bilirubin 1.0 Direct Bilirubin 0.6 H AST 54 H ALT 36 Alkaline Phosphatase 108 Total Protein 5.3 L Albumin 2.6 L Microbiology Microbiology Results: Microbiology 04/15/21 12:35 Blood Culture - Final Blood - Venous Escherichia coli 04/15/21 12:35 Blood Culture - Final Blood - Venous Escherichia coli 04/16/21 04:01 Blood Culture - Preliminary Blood - Venous No growth after 48 hours. 04/16/21 04:01 Blood Culture - Preliminary Blood - Venous No growth after 48 hours. Assessment and Plan (1) UTI (urinary tract infection): Status: Acute (2) PAF (paroxysmal atrial fibrillation): Status: Acute (3) Bacteremia: Status: Acute (4) Hydronephrosis: Status: Acute (5) Bladder wall thickening: Status: Acute Plan 75-year-old male with past medical history of hypertension, diabetes who presents to the hospital with complaints of chest pain found to have AFib with RVR as well as? 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 Baseline SCr range 2 to 2.5, presented with 3.99, creatinine near baseline at 2.43 improved with IV hydration, but there is a concern over post-renal issues contributing Urology consulted - recommends to bladder scan to ensure emptying; outpatient urology FU for cystoscopy follow renal function Asymmetric bladder wall thickening concerning over neoplastic process raised on CT scan seen by urology rec outpatient urology follow up repeat CT scan showing persistent hydroureteronephrosis with ?obstruction at bladder level from suspected neoplasm will need to discuss with urology again prior to d/c Abdominal pain resolved repeat CT abdomen no acute pathology LFTs wnl hyperkalemia resolved s/p lokelma follow BMP New onset A Fib with RVR now in sinus on telemonitor Eliquis started this admission, echo done showing preserved EF Metoprolol started for rate control Seen by Cardiology -rec outpatient ischemic workup/cardiology follow up HTN bp on the softer side metoprolol started by cardiology for afib rate control hold lisinopril follow BP closely Chest pain likely due to tachycardia ekg not suggestive of ACS resolved Question CHF echo showing preserved EF clinically not overloaded hold home lasix for now follow fluid status closely DM pioglitazone, jardiance on hold continue Lantus, SSI Full code DVT prophylaxis: Adam Attending: Dr. Love Quality Stroke Does the patient have a stroke diagnosis?: No VTE Prior VTE?: No VTE Risk Level:: Medical - moderate - high VTE Device Contraindication: Treatment Not Indicated VTE Drug Contraindication: N/A - Med Ordered
[2021-04-19 11:31] LABS: Glucose, Whole Blood 214 mg/dL (60-115)
[2021-04-19] MEDS: Insulin Lispro 100 UNIT/ML 3 ML VIAL SUBCUT ×3 (11:35→21:32)
[2021-04-19 11:44] VITALS: BP 132/62; PULSE 82; RESP 18; TEMP 38.2; O2SAT 94
[2021-04-19 15:26] VITALS: BP 123/57; PULSE 83; RESP 18; TEMP 37.2; O2SAT 95
[2021-04-19 15:47] LABS: Glucose, Whole Blood 223 mg/dL (60-115)
[2021-04-19] MEDS: cefTRIAXone sodium 1 GM in 0.9 % Sodium Chloride 50 ML IV (15:49)
[2021-04-19 19:20] VITALS: BP 122/60; PULSE 67; RESP 18; TEMP 36.6; O2SAT 98
[2021-04-19 20:00] LABS: Glucose, Whole Blood 194 mg/dL (60-115)
[2021-04-19] MEDS: Insulin Glargine,Hum.rec.anlog 100 UNIT/ML 10 ML VIAL 12 UNIT SUBCUT (21:31)
[2021-04-19] MEDS: Latanoprost 0.005 % Ophth Sol 2.5 ML DROPS 1 DROP EYE-BOTH (21:40)
[2021-04-19 23:34] VITALS: BP 125/60; PULSE 84; RESP 20; TEMP 37.9; O2SAT 92
[2021-04-19] MEDS: Acetaminophen 325 MG TABLET 650 MG PO (23:42)
[2021-04-20] VITALS (7 sets, daily range): BP systolic 103–157; BP diastolic 54–70; PULSE 70–85; RESP 16–18; TEMP 36.9–39.3; O2SAT 93–96
[2021-04-20 07:15] LABS: Anion Gap 13 (12-20); Blood Urea Nitrogen 44 mg/dL (9-16); Calcium 7.3 mg/dL (8.4-10.2); Carbon Dioxide 20 mmol/L (22-29); Chloride 106 mmol/L (96-108); Estimated Glomerular Filt Rate 24; Glucose Random 101 mg/dL (60-115); Potassium 4.8 mmol/L (3.3-5.1); Sodium 134 mmol/L (135-145)
[2021-04-20 07:43] LABS: Glucose, Whole Blood 94 mg/dL (60-115)
[2021-04-20] MEDS: Docusate Sodium 100 MG CAPSULE PO (08:21)
[2021-04-20] MEDS: Acetaminophen 325 MG TABLET 650 MG PO ×3 (08:21→23:29)
[2021-04-20] MEDS: Aspirin Enteric Coated 81 MG TABLET.DR PO (08:22)
[2021-04-20] MEDS: Apixaban 5 MG TABLET PO ×2 (08:22→20:08)
[2021-04-20] MEDS: 0.9 % Sodium Chloride Flush 3 ML SYRINGE IVFLUSH ×2 (08:22→15:31)
[2021-04-20] MEDS: Metoprolol Succinate ER 25 MG TAB.ER.24H PO (08:22)
[2021-04-20] MEDS: Omeprazole 20 MG CAPSULE.DR PO (08:22)
[2021-04-20] MEDS: Dorzolamide/Timolo 2.23%/0.68% 10 ML DRBTL 1 DROP EYE-BOTH (08:30)
[2021-04-20 11:43] LABS: Glucose, Whole Blood 246 mg/dL (60-115)
[2021-04-20] MEDS: Insulin Lispro 100 UNIT/ML 3 ML VIAL SUBCUT ×3 (11:57→20:14)
--- NOTE | 2021-04-20 15:11 | P.PNIM_ITS ---
Subjective Subjective Date of Service: 04/20/21 Review of Systems Seen and examined this morning feeling better this morning. no abdominal pain no diarrhea, nausea or vomiting reports a BM each day during admission Physical Exam Vital Signs: Vital Signs: Last Vital Signs Temp 99.5 F 04/20/21 11:18 Pulse 70 04/20/21 11:18 Resp 18 04/20/21 11:18 BP 114/56 L 04/20/21 11:18 Pulse Ox 96 04/20/21 11:18 BMI result Body Mass Index 27.8 Appearing in no acute distress lung sounds are clear to auscultation heart regular rate rhythm, clear S1, S2 positive bowel sounds, abdomen is soft, nontender neuro patient is alert x3, no focal deficits Objective Data Active Medications Acetaminophen (Acetaminophen 325 Mg Tablet) 650 mg PO Q6H PRN PRN Reason: Pain, Mild (Pain Scale 1-3) Last Admin: 04/20/21 08:21 Dose: 650 mg Documented by: LELSI Apixaban (Apixaban 5 Mg Tablet) 5 mg PO BID [facility] Last Admin: 04/20/21 08:22 Dose: 5 mg Documented by: LESLI Aspirin (Aspirin Enteric Coated 81 Mg Tablet.Dr) 81 mg PO DAILY [facility] Last Admin: 04/20/21 08:22 Dose: 81 mg Documented by: LESLI Dextrose (Dextrose 50 % 25 Gm/50 Ml Syringe) 25 gm IVPUSH Q15M PRN; Protocol PRN Reason: per Hypoglycemia Standing Ord. Docusate Sodium (Docusate Sodium 100 Mg Capsule) 100 mg PO DAILY [facility] Last Admin: 04/20/21 08:21 Dose: 100 mg Documented by: LESLI Dorzolamide/Timolol (Dorzolamide/Timolo 2.23%/0.68% 10 Ml Drbtl) 1 drop EYE- BOTH DAILY [facility] Last Admin: 04/20/21 08:30 Dose: 1 drop Documented by: LESLI Glucose (Glucose Gel 15 Gm Gel..Gram.) 15 gm PO Q15M PRN; Protocol PRN Reason: per Hypoglycemia Standing Ord. Ceftriaxone Sodium 1 gm/ (Sodium Chloride) 50 mls @ 100 mls/hr IV Q24H [facility] Last Infusion: 04/19/21 16:20 Dose: 0 mls/hr Documented by: FRANC Insulin Glargine (Insulin Glargine,Hum.Rec.Anlog 100 Unit/Ml 10 Ml Vial) 12 unit SUBCUT BEDTIME [facility] Last Admin: 04/19/21 21:31 Dose: 12 unit Documented by: MONSE Insulin Human Lispro (Insulin Lispro 100 Unit/Ml 3 Ml Vial) 0 unit SUBCUT QIDACHS [facility]; Protocol Last Admin: 04/20/21 11:57 Dose: 4 unit Documented by: LESLI Latanoprost (Latanoprost 0.005 % Ophth Betina 2.5 Ml Drops) 1 drop EYE-BOTH BEDTIME [facility] Last Admin: 04/19/21 21:40 Dose: 1 drop Documented by: MONSE Metoprolol Succinate (Metoprolol Succinate Er 25 Mg Tab.Er.24h) 25 mg PO DAILY [facility]; Protocol Last Admin: 04/20/21 08:22 Dose: 25 mg Documented by: LESLI Omeprazole (Omeprazole 20 Mg Capsule.Dr) 20 mg PO DAILY [facility] Last Admin: 04/20/21 08:22 Dose: 20 mg Documented by: LESLI Ondansetron HCl (Ondansetron Hcl 4 Mg/2 Ml Vial) 4 mg IVPUSH Q8H PRN PRN Reason: Nausea and Vomiting Polyethylene Glycol (Polyethylene Glycol 3350 17 Gm Powd.Pack) 17 gm PO DAILY PRN PRN Reason: constipation Sodium Chloride (0.9 % Sodium Chloride Flush 3 Ml Syringe) 3 ml IVFLUSH QSHIFT [facility] Last Admin: 04/20/21 08:22 Dose: 3 ml Documented by: LESLI Labs CBC & Chem 7: 04/19/21 06:10 04/20/21 05:50 Labs: Laboratory Results - last 24 hr 04/19/21 04/19/21 04/20/21 15:28 19:18 05:50 Anion Gap 13 Estim Creat Clear Calc 23.0 Estimated GFR 24 POC Glucose 223 H 194 H Random Glucose 101 D Calcium 7.3 L 04/20/21 04/20/21 07:21 11:23 Anion Gap Estim Creat Clear Calc Estimated GFR POC Glucose 94 246 H Random Glucose Calcium Assessment and Plan (1) UTI (urinary tract infection): Status: Acute (2) PAF (paroxysmal atrial fibrillation): Status: Acute (3) Bacteremia: Status: Acute (4) Hydronephrosis: Status: Acute (5) Bladder wall thickening: Status: Acute Plan 75-year-old male with past medical history of hypertension, diabetes who presents to the hospital with complaints of chest pain found to have AFib with RVR as well as? 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 Baseline SCr range 2 to 2.5, presented with 3.99, creatinine near baseline at 2.43 improved with IV hydration, but there is a concern over post-renal issues contributing Urology consulted - recommends to bladder scan to ensure emptying; outpatient urology FU for cystoscopy follow renal function Asymmetric bladder wall thickening concerning over neoplastic process raised on CT scan seen by urology rec outpatient urology follow up repeat CT scan showing persistent hydroureteronephrosis with ?obstruction at bladder level from suspected neoplasm will need to discuss with urology again prior to d/c Abdominal pain resolved repeat CT abdomen no acute pathology LFTs wnl hyperkalemia resolved s/p lokelma follow BMP New onset A Fib with RVR now in sinus on telemonitor Eliquis started this admission, echo done showing preserved EF Metoprolol started for rate control Seen by Cardiology -rec outpatient ischemic workup/cardiology follow up HTN bp on the softer side metoprolol started by cardiology for afib rate control hold lisinopril follow BP closely Chest pain likely due to tachycardia ekg not suggestive of ACS resolved DM pioglitazone, jardiance on hold continue Lantus, SSI Full code DVT prophylaxis: Adam Attending: Dr. Love Quality Stroke Does the patient have a stroke diagnosis?: No VTE Prior VTE?: No VTE Risk Level:: Medical - moderate - high VTE Device Contraindication: Treatment Not Indicated VTE Drug Contraindication: N/A - Med Ordered
[2021-04-20] MEDS: cefTRIAXone sodium 1 GM in 0.9 % Sodium Chloride 50 ML IV (15:31)
[2021-04-20 16:13] LABS: Glucose, Whole Blood 186 mg/dL (60-115)
[2021-04-20] MEDS: Insulin Glargine,Hum.rec.anlog 100 UNIT/ML 10 ML VIAL 12 UNIT SUBCUT (20:08)
[2021-04-20] MEDS: Latanoprost 0.005 % Ophth Sol 2.5 ML DROPS 1 DROP EYE-BOTH (20:09)
[2021-04-20 20:18] LABS: Glucose, Whole Blood 215 mg/dL (60-115)
[2021-04-20] MEDS: ondansetron HCL 4 MG/2 ML VIAL IVPUSH (23:33)
[2021-04-20] MEDS: polyethylene glycoL 3350 17 GM POWD.PACK PO (23:34)
[2021-04-21] VITALS (8 sets, daily range): BP systolic 100–145; BP diastolic 52–78; PULSE 71–89; RESP 13–20; TEMP 36.8–38.4; O2SAT 93–97
[2021-04-21] MEDS: 0.9 % Sodium Chloride Flush 3 ML SYRINGE IVFLUSH ×4 (01:07→20:13)
[2021-04-21 07:16] LABS: Hemoglobin 8.3 g/dl (14.0-18.0); Mean Corpuscular HGB Conc 31.9 g/dl (31.0-36.0); Mean Corpuscular Hemoglobin 30.1 pg (27.0-33.0); Mean Corpuscular Volume 94.2 fL (80.0-98.0); Mean Platelet Volume 10.5 fL (9.4-12.4); Platelet Count 482 X10*3/uL (160-400); Red Blood Count 2.76 X10*6/uL (4.60-5.80); Red Cell Distribution Width 14.4 % (11.0-16.0); White Blood Count 19.2 X10*3/uL (4.8-10.8)
[2021-04-21 07:30] LABS: Anion Gap 15 (12-20); Blood Urea Nitrogen 51 mg/dL (9-16); Calcium 7.4 mg/dL (8.4-10.2); Carbon Dioxide 20 mmol/L (22-29); Chloride 103 mmol/L (96-108); Creatinine Clr Calc Pharmacy 23.5; Estimated Glomerular Filt Rate 24; Glucose Random 169 mg/dL (60-115); Potassium 4.9 mmol/L (3.3-5.1); Sodium 133 mmol/L (135-145)
[2021-04-21 07:49] LABS: Glucose, Whole Blood 153 mg/dL (60-115)
[2021-04-21] MEDS: Insulin Lispro 100 UNIT/ML 3 ML VIAL SUBCUT ×4 (08:13→20:13)
[2021-04-21] MEDS: Acetaminophen 325 MG TABLET 650 MG PO ×2 (08:13→18:36)
[2021-04-21] MEDS: Docusate Sodium 100 MG CAPSULE PO (08:14)
[2021-04-21] MEDS: Omeprazole 20 MG CAPSULE.DR PO (08:14)
[2021-04-21] MEDS: Aspirin Enteric Coated 81 MG TABLET.DR PO (08:14)
[2021-04-21] MEDS: Metoprolol Succinate ER 25 MG TAB.ER.24H PO (08:14)
[2021-04-21] MEDS: Apixaban 5 MG TABLET PO ×2 (08:14→20:13)
--- NOTE | 2021-04-21 08:39 | PHA.PROG ---
Admission Date/Time: April 14, 2021 01:31 Indication: Weight in k.7 kg Adjusted body weight in Kg: [place] body weight in Kg: Obesity Dosing Indication % IBW: Serum Creatinine - Last 168 Hours 04/15/21 04/16/21 04/17/21 06:21 08:02 06:30 Creatinine 3.14 H 2.40 H 2.67 H 04/18/21 04/19/21 04/20/21 06:28 06:10 05:50 Creatinine 2.48 H 2.43 H 2.67 H 04/21/21 06:35 Creatinine 2.62 H Estimated CrCl and GFR - Last 168 Hours 04/15/21 04/16/21 04/17/21 06:21 08:02 06:30 Estim Creat Clear Calc 19.6 25.6 23.0 Estimated GFR 20 27 24 04/18/21 04/19/21 04/20/21 06:28 06:10 05:50 Estim Creat Clear Calc 24.8 25.3 23.0 Estimated GFR 26 26 24 04/21/21 06:35 Estim Creat Clear Calc 23.5 Estimated GFR 24 Vancomycin Loading Dose: 1000 mg x1 dose Current Vancomycin Dosing Regimen: 500 mg q24h Vancomycin Monitoring using AUC goal of 400 - 600 range with trough as surrogate marker: Predicting a AUC of 361 but a trough of 12.6 Date and Time for next Vancomycin Level to be drawn: 04/23 @ 0700 Pharmacist Comments on Vancomycin Plan: Due to the patients age and renal function, I will start at a lower dose and get a random level after 2 doses. I expect to increase the regimen to 750 mg q24h if the renal function improves slightly or if the level comes back lower than predicted. Vancomycin dosing will take advantage of [employer] as a clinical decision support tool that uses Bayesian modeling to calculate individual patient's pharmacokinetic parameters and forecast the patient's drug concentration time course with the target goal AUC 24 range of 400 - 600 mg/L/hr.
--- NOTE | 2021-04-21 08:47 | HO.PM.IMPN ---
Subjective Subjective Date of Service: 04/21/21 Review of Systems Seen and examined this morning feeling better. no abdominal pain no diarrhea, nausea or vomiting reports a BM each day during admission Reported some SOB Physical Exam Vital Signs: Vital Signs: Last Vital Signs Temp 101.0 F H 04/21/21 07:24 Pulse 89 04/21/21 07:24 Resp 20 04/21/21 07:24 BP 125/57 L 04/21/21 07:24 Pulse Ox 95 04/21/21 07:24 BMI result Body Mass Index 27.8 Appearing in no acute distress lung sounds are clear to auscultation heart regular rate rhythm, clear S1, S2 positive bowel sounds, abdomen is soft, nontender neuro patient is alert x3, no focal deficits Objective Data Active Medications Acetaminophen (Acetaminophen 325 Mg Tablet) 650 mg PO Q6H PRN PRN Reason: Pain, Mild (Pain Scale 1-3) Last Admin: 04/21/21 08:13 Dose: 650 mg Documented by: REAGAN Apixaban (Apixaban 5 Mg Tablet) 5 mg PO BID [facility] Last Admin: 04/21/21 08:14 Dose: 5 mg Documented by: REAGAN Aspirin (Aspirin Enteric Coated 81 Mg Tablet.Dr) 81 mg PO DAILY [facility] Last Admin: 04/21/21 08:14 Dose: 81 mg Documented by: REAGAN Dextrose (Dextrose 50 % 25 Gm/50 Ml Syringe) 25 gm IVPUSH Q15M PRN; Protocol PRN Reason: per Hypoglycemia Standing Ord. Docusate Sodium (Docusate Sodium 100 Mg Capsule) 100 mg PO DAILY [facility] Last Admin: 04/21/21 08:14 Dose: 100 mg Documented by: REAGAN Dorzolamide/Timolol (Dorzolamide/Timolo 2.23%/0.68% 10 Ml Drbtl) 1 drop EYE-BOTH DAILY [facility] Last Admin: 04/20/21 08:30 Dose: 1 drop Documented by: LESLI Glucose (Glucose Gel 15 Gm Gel..Gram.) 15 gm PO Q15M PRN; Protocol PRN Reason: per Hypoglycemia Standing Ord. Ceftriaxone Sodium 1 gm/ (Sodium Chloride) 50 mls @ 100 mls/hr IV Q24H [facility] Last Infusion: 04/20/21 17:02 Dose: 0 mls/hr Documented by: REAGAN Vancomycin HCl 1,000 mg/ (Sodium Chloride) 270 mls @ 270 mls/hr IV ONCE ONE Stop: 04/21/21 09:59 Vancomycin HCl 500 mg/ Sodium (Chloride) 110 mls @ 110 mls/hr IV Q24H [facility] Insulin Glargine (Insulin Glargine,Hum.Rec.Anlog 100 Unit/Ml 10 Ml Vial) 12 unit SUBCUT BEDTIME [facility] Last Admin: 04/20/21 20:08 Dose: 12 unit Documented by: FRANC Insulin Human Lispro (Insulin Lispro 100 Unit/Ml 3 Ml Vial) 0 unit SUBCUT QIDACHS [facility]; Protocol Last Admin: 04/21/21 08:13 Dose: 2 unit Documented by: REAGAN Latanoprost (Latanoprost 0.005 % Ophth Betina 2.5 Ml Drops) 1 drop EYE-BOTH BEDTIME [facility] Last Admin: 04/20/21 20:09 Dose: 1 drop Documented by: FRANC Metoprolol Succinate (Metoprolol Succinate Er 25 Mg Tab.Er.24h) 25 mg PO DAILY [facility]; Protocol Last Admin: 04/21/21 08:14 Dose: 25 mg Documented by: REAGAN Omeprazole (Omeprazole 20 Mg Capsule.Dr) 20 mg PO DAILY [facility] Last Admin: 04/21/21 08:14 Dose: 20 mg Documented by: REAGAN Ondansetron HCl (Ondansetron Hcl 4 Mg/2 Ml Vial) 4 mg IVPUSH Q8H PRN PRN Reason: Nausea and Vomiting Last Admin: 04/20/21 23:33 Dose: 4 mg Documented by: FRANC Pharmacy Consult (Consult Rx Vancomycin Dosing) 1 each MISCELLANE DAILY PRN PRN Reason: Consult order Polyethylene Glycol (Polyethylene Glycol 3350 17 Gm Powd.Pack) 17 gm PO DAILY PRN PRN Reason: constipation Last Admin: 04/20/21 23:34 Dose: 17 gm Documented by: FRANC Sodium Chloride (0.9 % Sodium Chloride Flush 3 Ml Syringe) 3 ml IVFLUSH QSHIFT [facility] Last Admin: 04/21/21 08:14 Dose: 3 ml Documented by: REAGAN Labs CBC & Chem 7: 04/21/21 06:35 04/21/21 06:35 Labs: Laboratory Results - last 24 hr 04/20/21 04/20/21 04/20/21 11:23 16:06 20:11 MCV MCH MCHC RDW Plt Count MPV Absolute Nucleated RBC Nucleated RBC % (auto) Anion Gap Estim Creat Clear Calc Estimated GFR POC Glucose 246 H 186 H 215 H Random Glucose Calcium 04/21/21 04/21/21 04/21/21 06:35 06:35 07:28 MCV 94.2 MCH 30.1 MCHC 31.9 RDW 14.4 Plt Count 482 H MPV 10.5 Absolute Nucleated RBC 0.000 Nucleated RBC % (auto) 0.0 Anion Gap 15 Estim Creat Clear Calc 23.5 Estimated GFR 24 POC Glucose 153 H Random Glucose 169 H D Calcium 7.4 L Microbiology Microbiology Results: Microbiology 04/16/21 04:01 Blood Culture - Final Blood - Venous No growth after 5 days. 04/16/21 04:01 Blood Culture - Final Blood - Venous No growth after 5 days. Assessment and Plan (1) UTI (urinary tract infection): Status: Acute (2) PAF (paroxysmal atrial fibrillation): Status: Acute (3) Bacteremia: Status: Acute (4) Hydronephrosis: Status: Acute (5) Bladder wall thickening: Status: Acute Plan 75-year-old male with past medical history of hypertension, diabetes who presents to the hospital with complaints of chest pain found to have AFib with RVR as well as? YESSENIA Fevers unknown, ? secondary to hydronephrosis blood cx have been neg for 5 days ID consult Repeat blood cx Urology re consulted for persistent hydronephrosis SOB. started last night ? 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 Baseline SCr range 2 to 2.5, presented with 3.99, creatinine near baseline at 2.43 improved with IV hydration, but there is a concern over post-renal issues contributing Urology re consulted for persistent hydronephrosis Asymmetric bladder wall thickening concerning over neoplastic process raised on CT scan repeat CT scan showing persistent hydroureteronephrosis with ?obstruction at bladder level from suspected neoplasm Abdominal pain resolved repeat CT abdomen no acute pathology LFTs wnl hyperkalemia resolved s/p lokelma follow BMP New onset A Fib with RVR now in sinus on telemonitor Eliquis started this admission, echo done showing preserved EF Metoprolol started for rate control Seen by Cardiology -rec outpatient ischemic workup/cardiology follow up HTN bp on the softer side metoprolol started by cardiology for afib rate control hold lisinopril follow BP closely Chest pain likely due to tachycardia ekg not suggestive of ACS resolved DM pioglitazone, jardiance on hold continue Lantus, SSI Full code DVT prophylaxis: Adam Attending: Dr. Iyer Quality Stroke Does the patient have a stroke diagnosis?: No VTE Prior VTE?: No VTE Risk Level:: Medical - moderate - high VTE Device Contraindication: Treatment Not Indicated VTE Drug Contraindication: N/A - Med Ordered
[2021-04-21 09:27] LABS: B Type Natriuretic Peptide 302 pg/mL (<100)
[2021-04-21] MEDS: Dorzolamide/Timolo 2.23%/0.68% 10 ML DRBTL 1 DROP EYE-BOTH (10:15)
[2021-04-21] MEDS: vancomycin HCL 1,000 MG in 0.9 % Sodium Chloride 250 ML 270 MG IV (10:15)
[2021-04-21 11:22] LABS: Glucose, Whole Blood 227 mg/dL (60-115)
--- NOTE | 2021-04-21 12:36 | P.PNUR_ITS ---
Subjective Subjective Date of Service: 04/21/21 Interval history: Persistent hydronephrosis left side Diffuse bladder wall thickening on repeat CT scan Creatinine at baseline 2.6 WBC elevated Will plan for check cystoscopy with bilateral retrogrades possible stent on the left and bladder biopsy Physical Exam Vital Signs: Vital Signs: Last Vital Signs Temp 98.2 F 04/21/21 11:04 Pulse 71 04/21/21 11:04 Resp 18 04/21/21 11:04 BP 100/52 L 04/21/21 11:04 Pulse Ox 97 04/21/21 11:04 BMI result Body Mass Index 27.8 Const: General: cooperative, healthy appearing, comfortable and no acute dist ress Orientation/consciousness: patient oriented x3 HENMT: Face and sinus: Yes normal facial exam Mouth: moist mucous membranes Neck: Neck: Yes normal visual inspection, Yes full ROM and Yes trachea midline Chest: Chest palpation & inspection: normal inspection of the chest Resp: Effort & Inspection: normal respiratory effort, able to speak in complete sentences and no respiratory distress GI: Inspection: Yes normal to inspection Back/Spine/Pelvis: Cervical Spine: normal cervical lordosis Thoracic/Lumbar Spine: thoracic and lumbar spine normal to inspection Skin: General skin exam: no rashes or lesions noted Neuro: General: patient oriented x3, tone normal and moves all extremities Extrem: General: Yes normal to inspection and Yes capillary refill normal Urology Results Labs CBC & Chem 7: 04/21/21 06:35 04/21/21 06:35 Labs: Laboratory Results - last 24 hr 04/20/21 04/20/21 04/21/21 16:06 20:11 06:35 WBC 19.2 H RBC 2.76 L Hgb 8.3 L Hct 26.0 L MCV 94.2 MCH 30.1 MCHC 31.9 RDW 14.4 Plt Count 482 H MPV 10.5 Absolute Nucleated RBC 0.000 Nucleated RBC % (auto) 0.0 Sodium Potassium Chloride Carbon Dioxide Anion Gap BUN Creatinine Estim Creat Clear Calc Estimated GFR POC Glucose 186 H 215 H Random Glucose Calcium B-Natriuretic Peptide 04/21/21 04/21/21 04/21/21 06:35 06:35 07:28 WBC RBC Hgb Hct MCV MCH MCHC RDW Plt Count MPV Absolute Nucleated RBC Nucleated RBC % (auto) Sodium 133 L Potassium 4.9 Chloride 103 Carbon Dioxide 20 L Anion Gap 15 BUN 51 H Creatinine 2.62 H Estim Creat Clear Calc 23.5 Estimated GFR 24 POC Glucose 153 H Random Glucose 169 H D Calcium 7.4 L B-Natriuretic Peptide 302 H 04/21/21 11:03 WBC RBC Hgb Hct MCV MCH MCHC RDW Plt Count MPV Absolute Nucleated RBC Nucleated RBC % (auto) Sodium Potassium Chloride Carbon Dioxide Anion Gap BUN Creatinine Estim Creat Clear Calc Estimated GFR POC Glucose 227 H Random Glucose Calcium B-Natriuretic Peptide Progress Note: A&P Assessment and plan (1) Bladder outlet obstruction: Status: Acute (2) Bladder wall thickening: Status: Acute (3) Chronic renal failure, stage 4 (severe): Status: Acute Plan Plan for cystoscopy, bilateral retrograde, possible stent left-sided bladder biopsy Risks, benefits and alternatives to therapy were discussed. These include but are not limited to infection, bleeding, damage to local organs and tissues, need for further interventions. Anesthetic risks regarding cardiac arrhythmia, blood clots, and potential mortality were discussed. The patient understands the typical recovery time and the outpatient nature of the procedure. After consideration of these risks the patient gives full informed consent and they wish to move ahead with the procedure. Fall Risk Details Current Medications: Current Medications Acetaminophen (Acetaminophen 325 Mg Tablet) 650 mg PO Q6H PRN PRN Reason: Pain, Mild (Pain Scale 1-3) Last Admin: 04/21/21 08:13 Dose: 650 mg Documented by: Apixaban (Apixaban 5 Mg Tablet) 5 mg PO BID [facility] Last Admin: 04/21/21 08:14 Dose: 5 mg Documented by: Aspirin (Aspirin Enteric Coated 81 Mg Tablet.Dr) 81 mg PO DAILY [facility] Last Admin: 04/21/21 08:14 Dose: 81 mg Documented by: Dextrose (Dextrose 50 % 25 Gm/50 Ml Syringe) 25 gm IVPUSH Q15M PRN; Protocol PRN Reason: per Hypoglycemia Standing Ord. Docusate Sodium (Docusate Sodium 100 Mg Capsule) 100 mg PO DAILY [facility] Last Admin: 04/21/21 08:14 Dose: 100 mg Documented by: Dorzolamide/Timolol (Dorzolamide/Timolo 2.23%/0.68% 10 Ml Drbtl) 1 drop EYE- BOTH DAILY [facility] Last Admin: 04/21/21 10:15 Dose: 1 drop Documented by: Furosemide (Furosemide 20 Mg/2 Ml Vial) 20 mg IVPUSH BID@0900,1800 [facility]; Protocol Glucose (Glucose Gel 15 Gm Gel..Gram.) 15 gm PO Q15M PRN; Protocol PRN Reason: per Hypoglycemia Standing Ord. Ceftriaxone Sodium 1 gm/ (Sodium Chloride) 50 mls @ 100 mls/hr IV Q24H [facility] Last Infusion: 04/20/21 17:02 Dose: Infused Documented by: Levofloxacin (Levaquin) 500 mg in 100 mls @ 100 mls/hr IV PREOP ONE Stop: 04/21/21 13:32 Insulin Glargine (Insulin Glargine,Hum.Rec.Anlog 100 Unit/Ml 10 Ml Vial) 12 unit SUBCUT BEDTIME [facility] Last Admin: 04/20/21 20:08 Dose: 12 unit Documented by: Insulin Human Lispro (Insulin Lispro 100 Unit/Ml 3 Ml Vial) 0 unit SUBCUT QIDACHS [facility]; Protocol Last Admin: 04/21/21 08:13 Dose: 2 unit Documented by: Latanoprost (Latanoprost 0.005 % Ophth Betina 2.5 Ml Drops) 1 drop EYE-BOTH BEDTIME [facility] Last Admin: 04/20/21 20:09 Dose: 1 drop Documented by: Metoprolol Succinate (Metoprolol Succinate Er 25 Mg Tab.Er.24h) 25 mg PO DAILY [facility]; Protocol Last Admin: 04/21/21 08:14 Dose: 25 mg Documented by: Omeprazole (Omeprazole 20 Mg Capsule.Dr) 20 mg PO DAILY [facility] Last Admin: 04/21/21 08:14 Dose: 20 mg Documented by: Ondansetron HCl (Ondansetron Hcl 4 Mg/2 Ml Vial) 4 mg IVPUSH Q8H PRN PRN Reason: Nausea and Vomiting Last Admin: 04/20/21 23:33 Dose: 4 mg Documented by: Pharmacy Consult (Consult Rx Vancomycin Dosing) 1 each MISCELLANE DAILY PRN PRN Reason: Consult order Polyethylene Glycol (Polyethylene Glycol 3350 17 Gm Powd.Pack) 17 gm PO DAILY PRN PRN Reason: constipation Last Admin: 04/20/21 23:34 Dose: 17 gm Documented by: Sodium Chloride (0.9 % Sodium Chloride Flush 3 Ml Syringe) [facility] Last Admin: 04/21/21 08:14 Dose: 3 ml Documented by: Time Spent With Patient Time: Total time spent is greater than 50% in coordination of care (as documented) at patient's floor/unit and/or counseling patient: Time with patient: less than 15 minutes Progress Note: Quality Stroke Does the patient have a stroke diagnosis?: No
[2021-04-21 17:03] LABS: Glucose, Whole Blood 212 mg/dL (60-115)
[2021-04-21] MEDS: cefTRIAXone sodium 1 GM in 0.9 % Sodium Chloride 50 ML IV (17:33)
[2021-04-21] MEDS: Furosemide 20 MG/2 ML VIAL IVPUSH (17:35)
[2021-04-21 20:04] LABS: Glucose, Whole Blood 218 mg/dL (60-115)
[2021-04-21] MEDS: Insulin Glargine,Hum.rec.anlog 100 UNIT/ML 10 ML VIAL 12 UNIT SUBCUT (20:13)
[2021-04-21] MEDS: Latanoprost 0.005 % Ophth Sol 2.5 ML DROPS 1 DROP EYE-BOTH (21:23)
[2021-04-22] VITALS (15 sets, daily range): BP systolic 100–151; BP diastolic 47–72; PULSE 70–91; RESP 14–21; TEMP 36.2–39.4; O2SAT 90–100
[2021-04-22] MEDS: Acetaminophen 325 MG TABLET 650 MG PO ×2 (03:56→19:50)
[2021-04-22 06:35] LABS: Hematocrit 23.6 % (42.0-52.0); Hemoglobin 7.7 g/dl (14.0-18.0); Mean Corpuscular HGB Conc 32.6 g/dl (31.0-36.0); Mean Corpuscular Hemoglobin 30.4 pg (27.0-33.0); Mean Corpuscular Volume 93.3 fL (80.0-98.0); Mean Platelet Volume 10.4 fL (9.4-12.4); Platelet Count 495 X10*3/uL (160-400); Red Blood Count 2.53 X10*6/uL (4.60-5.80); Red Cell Distribution Width 14.2 % (11.0-16.0); White Blood Count 20.1 X10*3/uL (4.8-10.8)
[2021-04-22 06:56] LABS: B Type Natriuretic Peptide 302 pg/mL (<100)
[2021-04-22 07:01] LABS: Glucose, Whole Blood 127 mg/dL (60-115)
--- NOTE | 2021-04-22 07:14 | P.CONAN_ITS ---
[facility] Active Problems Active Problems: All Active Problems (Updated 04/21/21 @ 12:38 by Camden Winchester MD) Chronic renal failure, stage 4 (severe) (Acute) UTI (urinary tract infection) (Acute) PAF (paroxysmal atrial fibrillation) (Acute) Bacteremia (Acute) Hydronephrosis (Acute) Bladder wall thickening (Acute) Glucosuria (Acute) Bladder outlet obstruction (Acute) Atrial fibrillation with RVR (Acute) Chest pain (Acute) A-fib (Acute) YESSENIA (acute kidney injury) (Acute) Past Medical History Medical History Diabetes 1.5, managed as type 2 High cholesterol Hypertension Family History Family History Other No family history of coronary artery disease Surgical History Surgical History No pertinent past surgical history Social History Social History Household Members: Children Housing: House Do you presently have visiting nurse or other home services: No Alcohol intake: never Patient Tobacco Use Status: Former Tobacco user service: No Meds Allergies Allergy/AdvReac Type Severity Reaction Status Date / Time No Known Allergies Allergy Mild NONE Verified 04/13/21 18:49 Active Medications: Current Medications Acetaminophen (Acetaminophen 325 Mg Tablet) 650 mg PO Q6H PRN PRN Reason: Pain, Mild (Pain Scale 1-3) Last Admin: 04/22/21 03:56 Dose: 650 mg Documented by: Apixaban (Apixaban 5 Mg Tablet) 5 mg PO BID [facility] Last Admin: 04/21/21 20:13 Dose: 5 mg Documented by: Aspirin (Aspirin Enteric Coated 81 Mg Tablet.) 81 mg PO DAILY [facility] Last Admin: 04/21/21 08:14 Dose: 81 mg Documented by: Dextrose (Dextrose 50 % 25 Gm/50 Ml Syringe) 25 gm IVPUSH Q15M PRN; Protocol PRN Reason: per Hypoglycemia Standing Ord. Docusate Sodium (Docusate Sodium 100 Mg Capsule) 100 mg PO DAILY [facility] Last Admin: 04/21/21 08:14 Dose: 100 mg Documented by: Dorzolamide/Timolol (Dorzolamide/Timolo 2.23%/0.68% 10 Ml Drbtl) 1 drop EYE- BOTH DAILY [facility] Last Admin: 04/21/21 10:15 Dose: 1 drop Documented by: Furosemide (Furosemide 20 Mg/2 Ml Vial) 20 mg IVPUSH BID@0900,1800 [facility]; Kenn col Last Admin: 04/21/21 17:35 Dose: 20 mg Documented by: Glucose (Glucose Gel 15 Gm Gel..Gram.) 15 gm PO Q15M PRN; Protocol PRN Reason: per Hypoglycemia Standing Ord. Ceftriaxone Sodium 1 gm/ (Sodium Chloride) 50 mls @ 100 mls/hr IV Q24H [facility] Last Infusion: 04/21/21 18:10 Dose: Infused Documented by: Insulin Glargine (Insulin Glargine,Hum.Rec.Anlog 100 Unit/Ml 10 Ml Vial) 12 unit SUBCUT BEDTIME [facility] Last Admin: 04/21/21 20:13 Dose: 12 unit Documented by: Insulin Human Lispro (Insulin Lispro 100 Unit/Ml 3 Ml Vial) 0 unit SUBCUT QIDACHS [facility]; Protocol Last Admin: 04/21/21 20:13 Dose: 4 unit Documented by: Latanoprost (Latanoprost 0.005 % Ophth Betina 2.5 Ml Drops) 1 drop EYE-BOTH BEDTIME [facility] Last Admin: 04/21/21 21:23 Dose: 1 drop Documented by: Metoprolol Succinate (Metoprolol Succinate Er 25 Mg Tab.Er.24h) 25 mg PO DAILY [facility]; Protocol Last Admin: 04/21/21 08:14 Dose: 25 mg Documented by: Omeprazole (Omeprazole 20 Mg Capsule.Dr) 20 mg PO DAILY [facility] Last Admin: 04/21/21 08:14 Dose: 20 mg Documented by: Ondansetron HCl (Ondansetron Hcl 4 Mg/2 Ml Vial) 4 mg IVPUSH Q8H PRN PRN Reason: Nausea and Vomiting Last Admin: 04/20/21 23:33 Dose: 4 mg Documented by: Pharmacy Consult (Consult Rx Vancomycin Dosing) 1 each MISCELLANE DAILY PRN PRN Reason: Consult order Polyethylene Glycol (Polyethylene Glycol 3350 17 Gm Powd.Pack) 17 gm PO DAILY PRN PRN Reason: constipation Last Admin: 04/20/21 23:34 Dose: 17 gm Documented by: Sodium Chloride (0.9 % Sodium Chloride Flush 3 Ml Syringe) 3 ml IVFLUSH QSHIFT [facility] Last Admin: 04/21/21 20:13 Dose: 3 ml Documented by: Home Medications Medication Instructions Recorded Confirmed Last Taken Type aspirin 81 mg tablet,delayed 1 tab PO DAILY 01/03/20 04/14/21 Unknown History release furosemide 20 mg tablet 1 tab PO DAILY 01/03/20 04/14/21 Unknown History insulin aspart U-100 100 unit/mL 2 - 15 unit SUBCUT TIDAC 01/03/20 04/14/21 Unknown History (3 mL) subcutaneous pen (Novolog Flexpen U-100 Insulin aspart) latanoprost 0.005 % eye drops 1 drp OPHTHALMIC (EYE) BEDTIME 01/03/20 04/14/21 Unknown History omeprazole 20 mg capsule,delayed 1 cap PO DAILY@0630 01/03/20 04/14/21 Unknown History release pioglitazone 45 mg tablet 1 tab PO DAILY 01/03/20 04/14/21 Unknown History atorvastatin 40 mg tablet 1 tab PO BEDTIME 04/14/21 04/14/21 Unknown History dorzolamide 22.3 mg-timolol 6.8 1 drp OPHTHALMIC (EYE) DAILY 04/14/21 04/14/21 Unknown History mg/mL eye drops empagliflozin 25 mg tablet 1 tab PO DAILY 04/14/21 04/14/21 Unknown History (Jardiance) fenofibrate 160 mg tablet 1 tab PO QAM 04/14/21 04/14/21 Unknown History insulin glargine 100 unit/mL (3 12 unit SUBCUT BEDTIME 04/14/21 04/14/21 Unknown History mL) subcutaneous pen (Lantus Solostar U-100 Insulin) lisinopril 40 mg tablet 1 tab PO DAILY 04/14/21 04/14/21 Unknown History Exam Exam Date and Time: April 22, 2021 0714 Height,Weight and Vital Signs: Height 5 ft 5 in Weight 75.7 kg Last Vital Signs Temp 98.2 F 04/22/21 06:51 Pulse 77 04/22/21 06:51 Resp 19 04/22/21 06:51 BP 136/60 04/22/21 06:51 Pulse Ox 98 04/22/21 06:51 Pertinent Lab Results Pertinent Lab Results: Laboratory Tests 02/07/22 02/07/22 02/07/22 22:04 22:04 22:04 WBC 11.1 H RBC 3.65 L Hgb 11.4 L Hct 33.1 L MCV 90.7 MCH 31.2 MCHC 34.4 RDW 14.1 Plt Count TNP MPV 10.6 Immature Gran % (Auto) Cancelled Neut % (Auto) Cancelled Lymph % (Auto) Cancelled [place] % (Auto) Cancelled Eos % (Auto) Cancelled Baso % (Auto) Cancelled Lymph # (Auto) Cancelled [place] # (Auto) Cancelled Eos # (Auto) Cancelled Baso # (Auto) Cancelled Abs Immat Gran (auto) Cancelled Absolute Neuts (auto) Cancelled Absolute Nucleated RBC 0.000 Nucleated RBC % (auto) 0.0 Neutrophils % (Manual) 78 H Lymphocytes % (Manual) 4 L Monocytes % (Manual) 18 H Abs Neuts (Manual) 8.7 H Lymphocytes # (Manual) 0.4 L Monocytes # (Manual) 2.0 H Platelet Estimate NORMAL Plt Morphology Comment NORMAL RBC Morphology NORMAL Sodium 132 L Potassium 4.9 Chloride 97 Carbon Dioxide 22 Anion Gap 18 BUN 105 H Creatinine 3.99 H Estim Creat Clear Calc 15.4 Estimated GFR 15 POC Glucose Random Glucose 386 H* Estimat Average Glucose Hemoglobin A1c % Lactic Acid Calcium 8.5 Magnesium Total Bilirubin Direct Bilirubin AST ALT Alkaline Phosphatase Troponin I High Sens 20.9 B-Natriuretic Peptide 110 H Total Protein Albumin Urine Color Urine Appearance Urine pH Ur Specific [place] Urine Protein Urine Glucose (UA) Urine Ketones Urine Blood Urine Nitrite Ur Leukocyte Esterase Urine RBC Urine WBC Ur Squamous Epith Cells Amorphous Sediment Urine Bacteria COVID-19 (GENE) COVID-19 Clin Com 04/14/21 04/14/21 04/14/21 00:19 00:19 01:40 WBC RBC Hgb Hct MCV MCH MCHC RDW Plt Count MPV Immature Gran % (Auto) Neut % (Auto) Lymph % (Auto) [place] % (Auto) Eos % (Auto) Baso % (Auto) Lymph # (Auto) [place] # (Auto) Eos # (Auto) Baso # (Auto) Abs Immat Gran (auto) Absolute Neuts (auto) Absolute Nucleated RBC Nucleated RBC % (auto) Neutrophils % (Manual) Lymphocytes % (Manual) Monocytes % (Manual) Abs Neuts (Manual) Lymphocytes # (Manual) Monocytes # (Manual) Platelet Estimate Plt Morphology Comment RBC Morphology Sodium Potassium Chloride Carbon Dioxide Anion Gap BUN Creatinine Estim Creat Clear Calc Estimated GFR POC Glucose Random Glucose Estimat Average Glucose Hemoglobin A1c % Lactic Acid Calcium Magnesium 3.1 H Total Bilirubin Direct Bilirubin AST ALT Alkaline Phosphatase Troponin I High Sens 18.1 B-Natriuretic Peptide Total Protein Albumin Urine Color YELLOW Urine Appearance CLEAR Urine pH 5.5 Ur Specific [place] 1.010 Urine Protein TRACE Urine Glucose (UA) >=1000 H Urine Ketones NEG Urine Blood 1+ H Urine Nitrite NEG Ur Leukocyte Esterase NEG Urine RBC 0-2 Urine WBC 1-4 Ur Squamous Epith Cells 2+ Amorphous Sediment 2+ Urine Bacteria 2+ COVID-19 (GENE) COVID-19 Clin Com 04/14/21 04/14/21 04/14/21 01:45 01:45 01:51 WBC RBC Hgb Hct MCV MCH MCHC RDW Plt Count MPV Immature Gran % (Auto) Neut % (Auto) Lymph % (Auto) [place] % (Auto) Eos % (Auto) Baso % (Auto) Lymph # (Auto) [place] # (Auto) Eos # (Auto) Baso # (Auto) Abs Immat Gran (auto) Absolute Neuts (auto) Absolute Nucleated RBC Nucleated RBC % (auto) Neutrophils % (Manual) Lymphocytes % (Manual) Monocytes % (Manual) Abs Neuts (Manual) Lymphocytes # (Manual) Monocytes # (Manual) Platelet Estimate Plt Morphology Comment RBC Morphology Sodium Potassium Chloride Carbon Dioxide Anion Gap BUN Creatinine Estim Creat Clear Calc Estimated GFR POC Glucose 258 H Random Glucose Estimat Average Glucose Hemoglobin A1c % Lactic Acid Calcium Magnesium Total Bilirubin Direct Bilirubin AST ALT Alkaline Phosphatase Troponin I High Sens 17.1 B-Natriuretic Peptide Total Protein Albumin Urine Color Urine Appearance Urine pH Ur Specific [place] Urine Protein Urine Glucose (UA) Urine Ketones Urine Blood Urine Nitrite Ur Leukocyte Esterase Urine RBC Urine WBC Ur Squamous Epith Cells Amorphous Sediment Urine Bacteria COVID-19 (GENE) Negative COVID-19 Clin Com See Note 04/14/21 04/14/21 04/14/21 06:35 06:35 07:26 WBC 11.0 H RBC 3.52 L Hgb 10.7 L Hct 32.1 L MCV 91.2 MCH 30.4 MCHC 33.3 RDW 14.3 Plt Count 207 MPV 10.7 Immature Gran % (Auto) 3.7 H Neut % (Auto) 79.8 H Lymph % (Auto) 5.8 L [place] % (Auto) 9.8 Eos % (Auto) 0.5 Baso % (Auto) 0.4 Lymph # (Auto) 0.6 L [place] # (Auto) 1.1 Eos # (Auto) 0.1 Baso # (Auto) 0.0 Abs Immat Gran (auto) 0.41 H Absolute Neuts (auto) 8.8 H Absolute Nucleated RBC 0.000 Nucleated RBC % (auto) 0.0 Neutrophils % (Manual) Lymphocytes % (Manual) Monocytes % (Manual) Abs Neuts (Manual) Lymphocytes # (Manual) Monocytes # (Manual) Platelet Estimate Plt Morphology Comment RBC Morphology Sodium 138 Potassium 4.8 Chloride 108 Carbon Dioxide 19 L Anion Gap 16 BUN 94 H Creatinine 3.45 H Estim Creat Clear Calc 17.8 Estimated GFR 17 POC Glucose 204 H Random Glucose 236 H D Estimat Average Glucose Hemoglobin A1c % Lactic Acid Calcium 7.9 L D Magnesium Total Bilirubin Direct Bilirubin AST ALT Alkaline Phosphatase Troponin I High Sens B-Natriuretic Peptide Total Protein Albumin Urine Color Urine Appearance Urine pH Ur Specific [place] Urine Protein Urine Glucose (UA) Urine Ketones Urine Blood Urine Nitrite Ur Leukocyte Esterase Urine RBC Urine WBC Ur Squamous Epith Cells Amorphous Sediment Urine Bacteria COVID-19 (GENE) COVID-19 Clin Com 04/14/21 04/14/21 04/14/21 13:12 16:09 17:59 WBC RBC Hgb Hct MCV MCH MCHC RDW Plt Count MPV Immature Gran % (Auto) Neut % (Auto) Lymph % (Auto) [place] % (Auto) Eos % (Auto) Baso % (Auto) Lymph # (Auto) [place] # (Auto) Eos # (Auto) Baso # (Auto) Abs Immat Gran (auto) Absolute Neuts (auto) Absolute Nucleated RBC Nucleated RBC % (auto) Neutrophils % (Manual) Lymphocytes % (Manual) Monocytes % (Manual) Abs Neuts (Manual) Lymphocytes # (Manual) Monocytes # (Manual) Platelet Estimate Plt Morphology Comment RBC Morphology Sodium Potassium Chloride Carbon Dioxide Anion Gap BUN Creatinine Estim Creat Clear Calc Estimated GFR POC Glucose 187 H 253 H Random Glucose Estimat Average Glucose 203 Hemoglobin A1c % 8.7 Lactic Acid Calcium Magnesium Total Bilirubin Direct Bilirubin AST ALT Alkaline Phosphatase Troponin I High Sens B-Natriuretic Peptide Total Protein Albumin Urine Color Urine Appearance Urine pH Ur Specific [place] Urine Protein Urine Glucose (UA) Urine Ketones Urine Blood Urine Nitrite Ur Leukocyte Esterase Urine RBC Urine WBC Ur Squamous Epith Cells Amorphous Sediment Urine Bacteria COVID-19 (GENE) COVID-19 [email or web address] Com 04/14/21 04/15/21 04/15/21 19:40 06:21 06:21 WBC 15.1 H RBC 3.49 L Hgb 10.8 L Hct 32.1 L MCV 92.0 MCH 30.9 MCHC 33.6 RDW 14.6 Plt Count 273 D MPV 10.5 Immature Gran % (Auto) Neut % (Auto) Lymph % (Auto) [place] % (Auto) Eos % (Auto) Baso % (Auto) Lymph # (Auto) [place] # (Auto) Eos # (Auto) Baso # (Auto) Abs Immat Gran (auto) Absolute Neuts (auto) Absolute Nucleated RBC 0.000 Nucleated RBC % (auto) 0.0 Neutrophils % (Manual) Lymphocytes % (Manual) Monocytes % (Manual) Abs Neuts (Manual) Lymphocytes # (Manual) Monocytes # (Manual) Platelet Estimate Plt Morphology Comment RBC Morphology Sodium 140 Potassium 4.8 Chloride 110 H Carbon Dioxide 20 L Anion Gap 15 BUN 84 H Creatinine 3.14 H Estim Creat Clear Calc 19.6 Estimated GFR 20 POC Glucose 253 H Random Glucose 160 H Estimat Average Glucose Hemoglobin A1c % Lactic Acid Calcium 7.9 L Magnesium Total Bilirubin Direct Bilirubin AST ALT Alkaline Phosphatase Troponin I High Sens B-Natriuretic Peptide Total Protein Albumin Urine Color Urine Appearance Urine pH Ur Specific [place] Urine Protein Urine Glucose (UA) Urine Ketones Urine Blood Urine Nitrite Ur Leukocyte Esterase Urine RBC Urine WBC Ur Squamous Epith Cells Amorphous Sediment Urine Bacteria COVID-19 (GENE) COVID-19 Clin Com 04/15/21 04/15/21 04/15/21 07:03 11:36 12:35 WBC RBC Hgb Hct MCV MCH MCHC RDW Plt Count MPV Immature Gran % (Auto) Neut % (Auto) Lymph % (Auto) [place] % (Auto) Eos % (Auto) Baso % (Auto) Lymph # (Auto) [place] # (Auto) Eos # (Auto) Baso # (Auto) Abs Immat Gran (auto) Absolute Neuts (auto) Absolute Nucleated RBC Nucleated RBC % (auto) Neutrophils % (Manual) Lymphocytes % (Manual) Monocytes % (Manual) Abs Neuts (Manual) Lymphocytes # (Manual) Monocytes # (Manual) Platelet Estimate Plt Morphology Comment RBC Morphology Sodium Potassium Chloride Carbon Dioxide Anion Gap BUN Creatinine Estim Creat Clear Calc Estimated GFR POC Glucose 239 H 256 H Random Glucose Estimat Average Glucose Hemoglobin A1c % Lactic Acid 2.0 Calcium Magnesium Total Bilirubin Direct Bilirubin AST ALT Alkaline Phosphatase Troponin I High Sens B-Natriuretic Peptide Total Protein Albumin Urine Color Urine Appearance Urine pH Ur Specific [place] Urine Protein Urine Glucose (UA) Urine Ketones Urine Blood Urine Nitrite Ur Leukocyte Esterase Urine RBC Urine WBC Ur Squamous Epith Cells Amorphous Sediment Urine Bacteria COVID-19 (GENE) COVID-19 [email or web address] Com 04/15/21 04/15/21 04/16/21 15:57 19:46 07:48 WBC RBC Hgb Hct MCV MCH MCHC RDW Plt Count MPV Immature Gran % (Auto) Neut % (Auto) Lymph % (Auto) [place] % (Auto) Eos % (Auto) Baso % (Auto) Lymph # (Auto) [place] # (Auto) Eos # (Auto) Baso # (Auto) Abs Immat Gran (auto) Absolute Neuts (auto) Absolute Nucleated RBC Nucleated RBC % (auto) Neutrophils % (Manual) Lymphocytes % (Manual) Monocytes % (Manual) Abs Neuts (Manual) Lymphocytes # (Manual) Monocytes # (Manual) Platelet Estimate Plt Morphology Comment RBC Morphology Sodium Potassium Chloride Carbon Dioxide Anion Gap BUN Creatinine Estim Creat Clear Calc Estimated GFR POC Glucose 215 H 144 H 153 H Random Glucose Estimat Average Glucose Hemoglobin A1c % Lactic Acid Calcium Magnesium Total Bilirubin Direct Bilirubin AST ALT Alkaline Phosphatase Troponin I High Sens B-Natriuretic Peptide Total Protein Albumin Urine Color Urine Appearance Urine pH Ur Specific [place] Urine Protein Urine Glucose (UA) Urine Ketones Urine Blood Urine Nitrite Ur Leukocyte Esterase Urine RBC Urine WBC Ur Squamous Epith Cells Amorphous Sediment Urine Bacteria COVID-19 (GENE) COVID-19 [employer] 04/16/21 04/16/21 04/16/21 08:02 08:02 12:05 WBC 17.2 H RBC 3.36 L Hgb 10.3 L Hct 31.5 L MCV 93.8 MCH 30.7 MCHC 32.7 RDW 14.6 Plt Count 342 D MPV 10.6 Immature Gran % (Auto) 3.1 H Neut % (Auto) 86.1 H Lymph % (Auto) 4.9 L [place] % (Auto) 4.6 Eos % (Auto) 1.0 Baso % (Auto) 0.3 Lymph # (Auto) 0.8 L [place] # (Auto) 0.8 Eos # (Auto) 0.2 Baso # (Auto) 0.1 Abs Immat Gran (auto) 0.54 H Absolute Neuts (auto) 14.8 H Absolute Nucleated RBC 0.000 Nucleated RBC % (auto) 0.0 Neutrophils % (Manual) Lymphocytes % (Manual) Monocytes % (Manual) Abs Neuts (Manual) Lymphocytes # (Manual) Monocytes # (Manual) Platelet Estimate Plt Morphology Comment RBC Morphology Sodium 139 Potassium 5.1 Chloride 111 H Carbon Dioxide 20 L Anion Gap 13 BUN 69 H Creatinine 2.40 H Estim Creat Clear Calc 25.6 Estimated GFR 27 POC Glucose 131 H Random Glucose 186 H Estimat Average Glucose Hemoglobin A1c % Lactic Acid Calcium 7.9 L Magnesium Total Bilirubin Direct Bilirubin AST ALT Alkaline Phosphatase Troponin I High Sens B-Natriuretic Peptide Total Protein Albumin Urine Color Urine Appearance Urine pH Ur Specific [place] Urine Protein Urine Glucose (UA) Urine Ketones Urine Blood Urine Nitrite Ur Leukocyte Esterase Urine RBC Urine WBC Ur Squamous Epith Cells Amorphous Sediment Urine Bacteria COVID-19 (GENE) COVID-19 Clin Com 04/16/21 04/16/21 04/17/21 16:18 19:43 06:30 WBC 16.2 H RBC 3.00 L Hgb 9.1 L Hct 28.1 L MCV 93.7 MCH 30.3 MCHC 32.4 RDW 14.6 Plt Count 386 MPV 10.6 Immature Gran % (Auto) 2.6 H Neut % (Auto) 85.0 H Lymph % (Auto) 5.9 L [place] % (Auto) 4.9 Eos % (Auto) 1.4 Baso % (Auto) 0.2 Lymph # (Auto) 1.0 L [place] # (Auto) 0.8 Eos # (Auto) 0.2 Baso # (Auto) 0.0 Abs Immat Gran (auto) 0.42 H Absolute Neuts (auto) 13.8 H Absolute Nucleated RBC 0.000 Nucleated RBC % (auto) 0.0 Neutrophils % (Manual) Lymphocytes % (Manual) Monocytes % (Manual) Abs Neuts (Manual) Lymphocytes # (Manual) Monocytes # (Manual) Platelet Estimate Plt Morphology Comment RBC Morphology Sodium Potassium Chloride Carbon Dioxide Anion Gap BUN Creatinine Estim Creat Clear Calc Estimated GFR POC Glucose 155 H 206 H Random Glucose Estimat Average Glucose Hemoglobin A1c % Lactic Acid Calcium Magnesium Total Bilirubin Direct Bilirubin AST ALT Alkaline Phosphatase Troponin I High Sens B-Natriuretic Peptide Total Protein Albumin Urine Color Urine Appearance Urine pH Ur Specific [place] Urine Protein Urine Glucose (UA) Urine Ketones Urine Blood Urine Nitrite Ur Leukocyte Esterase Urine RBC Urine WBC Ur Squamous Epith Cells Amorphous Sediment Urine Bacteria COVID-19 (GENE) COVID-19 [email or web address] Com 04/17/21 04/17/21 04/17/21 06:30 07:39 11:23 WBC RBC Hgb Hct MCV MCH MCHC RDW Plt Count MPV Immature Gran % (Auto) Neut % (Auto) Lymph % (Auto) [place] % (Auto) Eos % (Auto) Baso % (Auto) Lymph # (Auto) [place] # (Auto) Eos # (Auto) Baso # (Auto) Abs Immat Gran (auto) Absolute Neuts (auto) Absolute Nucleated RBC Nucleated RBC % (auto) Neutrophils % (Manual) Lymphocytes % (Manual) Monocytes % (Manual) Abs Neuts (Manual) Lymphocytes # (Manual) Monocytes # (Manual) Platelet Estimate Plt Morphology Comment RBC Morphology Sodium 137 Potassium 5.2 H Chloride 108 Carbon Dioxide 22 Anion Gap 12 BUN 59 H Creatinine 2.67 H Estim Creat Clear Calc 23.0 Estimated GFR 24 POC Glucose 169 H 208 H Random Glucose 168 H Estimat Average Glucose Hemoglobin A1c % Lactic Acid Calcium 7.7 L Magnesium Total Bilirubin Direct Bilirubin AST ALT Alkaline Phosphatase Troponin I High Sens B-Natriuretic Peptide Total Protein Albumin Urine Color Urine Appearance Urine pH Ur Specific [place] Urine Protein Urine Glucose (UA) Urine Ketones Urine Blood Urine Nitrite Ur Leukocyte Esterase Urine RBC Urine WBC Ur Squamous Epith Cells Amorphous Sediment Urine Bacteria COVID-19 (GENE) COVID-19 [employer] 04/17/21 04/17/21 04/18/21 16:33 20:28 06:28 WBC 19.2 H RBC 3.37 L Hgb 10.1 L Hct 31.7 L MCV 94.1 MCH 30.0 MCHC 31.9 RDW 14.6 Plt Count 452 H MPV 10.9 Immature Gran % (Auto) Neut % (Auto) Lymph % (Auto) [place] % (Auto) Eos % (Auto) Baso % (Auto) Lymph # (Auto) [place] # (Auto) Eos # (Auto) Baso # (Auto) Abs Immat Gran (auto) Absolute Neuts (auto) Absolute Nucleated RBC 0.000 Nucleated RBC % (auto) 0.0 Neutrophils % (Manual) Lymphocytes % (Manual) Monocytes % (Manual) Abs Neuts (Manual) Lymphocytes # (Manual) Monocytes # (Manual) Platelet Estimate Plt Morphology Comment RBC Morphology Sodium Potassium Chloride Carbon Dioxide Anion Gap BUN Creatinine Estim Creat Clear Calc Estimated GFR POC Glucose 183 H 167 H Random Glucose Estimat Average Glucose Hemoglobin A1c % Lactic Acid Calcium Magnesium Total Bilirubin Direct Bilirubin AST ALT Alkaline Phosphatase Troponin I High Sens B-Natriuretic Peptide Total Protein Albumin Urine Color Urine Appearance Urine pH Ur Specific [place] Urine Protein Urine Glucose (UA) Urine Ketones Urine Blood Urine Nitrite Ur Leukocyte Esterase Urine RBC Urine WBC Ur Squamous Epith Cells Amorphous Sediment Urine Bacteria COVID-19 (GENE) COVID-19 [employer] 04/18/21 04/18/21 04/18/21 06:28 07:57 11:15 WBC RBC Hgb Hct MCV MCH MCHC RDW Plt Count MPV Immature Gran % (Auto) Neut % (Auto) Lymph % (Auto) [place] % (Auto) Eos % (Auto) Baso % (Auto) Lymph # (Auto) [place] # (Auto) Eos # (Auto) Baso # (Auto) Abs Immat Gran (auto) Absolute Neuts (auto) Absolute Nucleated RBC Nucleated RBC % (auto) Neutrophils % (Manual) Lymphocytes % (Manual) Monocytes % (Manual) Abs Neuts (Manual) Lymphocytes # (Manual) Monocytes # (Manual) Platelet Estimate Plt Morphology Comment RBC Morphology Sodium 137 Potassium 5.6 H Chloride 107 Carbon Dioxide 22 Anion Gap 14 BUN 47 H Creatinine 2.48 H Estim Creat Clear Calc 24.8 Estimated GFR 26 POC Glucose 172 H 196 H Random Glucose 196 H Estimat Average Glucose Hemoglobin A1c % Lactic Acid Calcium 7.9 L Magnesium Total Bilirubin 1.3 H Direct Bilirubin 0.8 H AST 64 H ALT 45 H Alkaline Phosphatase 129 H Troponin I High Sens B-Natriuretic Peptide Total Protein 5.9 L Albumin 2.9 L Urine Color Urine Appearance Urine pH Ur Specific [place] Urine Protein Urine Glucose (UA) Urine Ketones Urine Blood Urine Nitrite Ur Leukocyte Esterase Urine RBC Urine WBC Ur Squamous Epith Cells Amorphous Sediment Urine Bacteria COVID-19 (GENE) COVID-19 [employer] 04/18/21 04/18/21 04/19/21 15:59 20:03 06:10 WBC 17.5 H RBC 2.93 L Hgb 9.0 L Hct 27.6 L MCV 94.2 MCH 30.7 MCHC 32.6 RDW 14.2 Plt Count 460 H MPV 10.2 Immature Gran % (Auto) Neut % (Auto) Lymph % (Auto) [place] % (Auto) Eos % (Auto) Baso % (Auto) Lymph # (Auto) [place] # (Auto) Eos # (Auto) Baso # (Auto) Abs Immat Gran (auto) Absolute Neuts (auto) Absolute Nucleated RBC 0.000 Nucleated RBC % (auto) 0.0 Neutrophils % (Manual) Lymphocytes % (Manual) Monocytes % (Manual) Abs Neuts (Manual) Lymphocytes # (Manual) Monocytes # (Manual) Platelet Estimate Plt Morphology Comment RBC Morphology Sodium Potassium Chloride Carbon Dioxide Anion Gap BUN Creatinine Estim Creat Clear Calc Estimated GFR POC Glucose 213 H 230 H Random Glucose Estimat Average Glucose Hemoglobin A1c % Lactic Acid Calcium Magnesium Total Bilirubin Direct Bilirubin AST ALT Alkaline Phosphatase Troponin I High Sens B-Natriuretic Peptide Total Protein Albumin Urine Color Urine Appearance Urine pH Ur Specific [place] Urine Protein Urine Glucose (UA) Urine Ketones Urine Blood Urine Nitrite Ur Leukocyte Esterase Urine RBC Urine WBC Ur Squamous Epith Cells Amorphous Sediment Urine Bacteria COVID-19 (GENE) COVID-19 Clin Com 04/19/21 04/19/21 04/19/21 06:10 07:27 11:21 WBC RBC Hgb Hct MCV MCH MCHC RDW Plt Count MPV Immature Gran % (Auto) Neut % (Auto) Lymph % (Auto) [place] % (Auto) Eos % (Auto) Baso % (Auto) Lymph # (Auto) [place] # (Auto) Eos # (Auto) Baso # (Auto) Abs Immat Gran (auto) Absolute Neuts (auto) Absolute Nucleated RBC Nucleated RBC % (auto) Neutrophils % (Manual) Lymphocytes % (Manual) Monocytes % (Manual) Abs Neuts (Manual) Lymphocytes # (Manual) Monocytes # (Manual) Platelet Estimate Plt Morphology Comment RBC Morphology Sodium 135 Potassium 4.7 Chloride 107 Carbon Dioxide 20 L Anion Gap 13 BUN 43 H Creatinine 2.43 H Estim Creat Clear Calc 25.3 Estimated GFR 26 POC Glucose 136 H 214 H Random Glucose 161 H Estimat Average Glucose Hemoglobin A1c % Lactic Acid Calcium 7.6 L Magnesium Total Bilirubin 1.0 Direct Bilirubin 0.6 H AST 54 H ALT 36 Alkaline Phosphatase 108 Troponin I High Sens B-Natriuretic Peptide Total Protein 5.3 L Albumin 2.6 L Urine Color Urine Appearance Urine pH Ur Specific [place] Urine Protein Urine Glucose (UA) Urine Ketones Urine Blood Urine Nitrite Ur Leukocyte Esterase Urine RBC Urine WBC Ur Squamous Epith Cells Amorphous Sediment Urine Bacteria COVID-19 (GENE) COVID-19 [email or web address] Com 04/19/21 04/19/21 04/20/21 15:28 19:18 05:50 WBC RBC Hgb Hct MCV MCH MCHC RDW Plt Count MPV Immature Gran % (Auto) Neut % (Auto) Lymph % (Auto) [place] % (Auto) Eos % (Auto) Baso % (Auto) Lymph # (Auto) [place] # (Auto) Eos # (Auto) Baso # (Auto) Abs Immat Gran (auto) Absolute Neuts (auto) Absolute Nucleated RBC Nucleated RBC % (auto) Neutrophils % (Manual) Lymphocytes % (Manual) Monocytes % (Manual) Abs Neuts (Manual) Lymphocytes # (Manual) Monocytes # (Manual) Platelet Estimate Plt Morphology Comment RBC Morphology Sodium 134 L Potassium 4.8 Chloride 106 Carbon Dioxide 20 L Anion Gap 13 BUN 44 H Creatinine 2.67 H Estim Creat Clear Calc 23.0 Estimated GFR 24 POC Glucose 223 H 194 H Random Glucose 101 D Estimat Average Glucose Hemoglobin A1c % Lactic Acid Calcium 7.3 L Magnesium Total Bilirubin Direct Bilirubin AST ALT Alkaline Phosphatase Troponin I High Sens B-Natriuretic Peptide Total Protein Albumin Urine Color Urine Appearance Urine pH Ur Specific [place] Urine Protein Urine Glucose (UA) Urine Ketones Urine Blood Urine Nitrite Ur Leukocyte Esterase Urine RBC Urine WBC Ur Squamous Epith Cells Amorphous Sediment Urine Bacteria COVID-19 (GENE) COVID-19 [employer] 04/20/21 04/20/21 04/20/21 07:21 11:23 16:06 WBC RBC Hgb Hct MCV MCH MCHC RDW Plt Count MPV Immature Gran % (Auto) Neut % (Auto) Lymph % (Auto) [place] % (Auto) Eos % (Auto) Baso % (Auto) Lymph # (Auto) [place] # (Auto) Eos # (Auto) Baso # (Auto) Abs Immat Gran (auto) Absolute Neuts (auto) Absolute Nucleated RBC Nucleated RBC % (auto) Neutrophils % (Manual) Lymphocytes % (Manual) Monocytes % (Manual) Abs Neuts (Manual) Lymphocytes # (Manual) Monocytes # (Manual) Platelet Estimate Plt Morphology Comment RBC Morphology Sodium Potassium Chloride Carbon Dioxide Anion Gap BUN Creatinine Estim Creat Clear Calc Estimated GFR POC Glucose 94 246 H 186 H Random Glucose Estimat Average Glucose Hemoglobin A1c % Lactic Acid Calcium Magnesium Total Bilirubin Direct Bilirubin AST ALT Alkaline Phosphatase Troponin I High Sens B-Natriuretic Peptide Total Protein Albumin Urine Color Urine Appearance Urine pH Ur Specific [place] Urine Protein Urine Glucose (UA) Urine Ketones Urine Blood Urine Nitrite Ur Leukocyte Esterase Urine RBC Urine WBC Ur Squamous Epith Cells Amorphous Sediment Urine Bacteria COVID-19 (GENE) COVID-19 [email or web address] Com 04/20/21 04/21/21 04/21/21 20:11 06:35 06:35 WBC 19.2 H RBC 2.76 L Hgb 8.3 L Hct 26.0 L MCV 94.2 MCH 30.1 MCHC 31.9 RDW 14.4 Plt Count 482 H MPV 10.5 Immature Gran % (Auto) Neut % (Auto) Lymph % (Auto) [place] % (Auto) Eos % (Auto) Baso % (Auto) Lymph # (Auto) [place] # (Auto) Eos # (Auto) Baso # (Auto) Abs Immat Gran (auto) Absolute Neuts (auto) Absolute Nucleated RBC 0.000 Nucleated RBC % (auto) 0.0 Neutrophils % (Manual) Lymphocytes % (Manual) Monocytes % (Manual) Abs Neuts (Manual) Lymphocytes # (Manual) Monocytes # (Manual) Platelet Estimate Plt Morphology Comment RBC Morphology Sodium 133 L Potassium 4.9 Chloride 103 Carbon Dioxide 20 L Anion Gap 15 BUN 51 H Creatinine 2.62 H Estim Creat Clear Calc 23.5 Estimated GFR 24 POC Glucose 215 H Random Glucose 169 H D Estimat Average Glucose Hemoglobin A1c % Lactic Acid Calcium 7.4 L Magnesium Total Bilirubin Direct Bilirubin AST ALT Alkaline Phosphatase Troponin I High Sens B-Natriuretic Peptide Total Protein Albumin Urine Color Urine Appearance Urine pH Ur Specific [place] Urine Protein Urine Glucose (UA) Urine Ketones Urine Blood Urine Nitrite Ur Leukocyte Esterase Urine RBC Urine WBC Ur Squamous Epith Cells Amorphous Sediment Urine Bacteria COVID-19 (GENE) COVID-19 [email or web address] Com 04/21/21 04/21/21 04/21/21 06:35 07:28 11:03 WBC RBC Hgb Hct MCV MCH MCHC RDW Plt Count MPV Immature Gran % (Auto) Neut % (Auto) Lymph % (Auto) [place] % (Auto) Eos % (Auto) Baso % (Auto) Lymph # (Auto) [place] # (Auto) Eos # (Auto) Baso # (Auto) Abs Immat Gran (auto) Absolute Neuts (auto) Absolute Nucleated RBC Nucleated RBC % (auto) Neutrophils % (Manual) Lymphocytes % (Manual) Monocytes % (Manual) Abs Neuts (Manual) Lymphocytes # (Manual) Monocytes # (Manual) Platelet Estimate Plt Morphology Comment RBC Morphology Sodium Potassium Chloride Carbon Dioxide Anion Gap BUN Creatinine Estim Creat Clear Calc Estimated GFR POC Glucose 153 H 227 H Random Glucose Estimat Average Glucose Hemoglobin A1c % Lactic Acid Calcium Magnesium Total Bilirubin Direct Bilirubin AST ALT Alkaline Phosphatase Troponin I High Sens B-Natriuretic Peptide 302 H Total Protein Albumin Urine Color Urine Appearance Urine pH Ur Specific [place] Urine Protein Urine Glucose (UA) Urine Ketones Urine Blood Urine Nitrite Ur Leukocyte Esterase Urine RBC Urine WBC Ur Squamous Epith Cells Amorphous Sediment Urine Bacteria COVID-19 (GENE) [employer]OV[employer]ly 04/21/21 04/21/21 04/22/21 16:33 19:51 06:15 WBC 20.1 H RBC 2.53 L Hgb 7.7 L Hct 23.6 L MCV 93.3 MCH 30.4 MCHC 32.6 RDW 14.2 Plt Count 495 H MPV 10.4 Immature Gran % (Auto) Neut % (Auto) Lymph % (Auto) [place] % (Auto) Eos % (Auto) Baso % (Auto) Lymph # (Auto) [place] # (Auto) Eos # (Auto) Baso # (Auto) Abs Immat Gran (auto) Absolute Neuts (auto) Absolute Nucleated RBC 0.000 Nucleated RBC % (auto) 0.0 Neutrophils % (Manual) Lymphocytes % (Manual) Monocytes % (Manual) Abs Neuts (Manual) Lymphocytes # (Manual) Monocytes # (Manual) Platelet Estimate Plt Morphology Comment RBC Morphology Sodium Potassium Chloride Carbon Dioxide Anion Gap BUN Creatinine Estim Creat Clear Calc Estimated GFR POC Glucose 212 H 218 H Random Glucose Estimat Average Glucose Hemoglobin A1c % Lactic Acid Calcium Magnesium Total Bilirubin Direct Bilirubin AST ALT Alkaline Phosphatase Troponin I High Sens B-Natriuretic Peptide Total Protein Albumin Urine Color Urine Appearance Urine pH Ur Specific [place] Urine Protein Urine Glucose (UA) Urine Ketones Urine Blood Urine Nitrite Ur Leukocyte Esterase Urine RBC Urine WBC Ur Squamous Epith Cells Amorphous Sediment Urine Bacteria COVID-19 (GENE) COVIDExhibition A 04/22/21 04/22/21 06:15 06:50 WBC RBC Hgb Hct MCV MCH MCHC RDW Plt Count MPV Immature Gran % (Auto) Neut % (Auto) Lymph % (Auto) [place] % (Auto) Eos % (Auto) Baso % (Auto) Lymph # (Auto) [place] # (Auto) Eos # (Auto) Baso # (Auto) Abs Immat Gran (auto) Absolute Neuts (auto) Absolute Nucleated RBC Nucleated RBC % (auto) Neutrophils % (Manual) Lymphocytes % (Manual) Monocytes % (Manual) Abs Neuts (Manual) Lymphocytes # (Manual) Monocytes # (Manual) Platelet Estimate Plt Morphology Comment RBC Morphology Sodium Potassium Chloride Carbon Dioxide Anion Gap BUN Creatinine Estim Creat Clear Calc Estimated GFR POC Glucose 127 H Random Glucose Estimat Average Glucose Hemoglobin A1c % Lactic Acid Calcium Magnesium Total Bilirubin Direct Bilirubin AST ALT Alkaline Phosphatase Troponin I High Sens B-Natriuretic Peptide 302 H Total Protein Albumin Urine Color Urine Appearance Urine pH Ur Specific [place] Urine Protein Urine Glucose (UA) Urine Ketones Urine Blood Urine Nitrite Ur Leukocyte Esterase Urine RBC Urine WBC Ur Squamous Epith Cells Amorphous Sediment Urine Bacteria COVID-19 (GENE) COVID-19 Clin Com Airway Mallampati Class: II (Edentulous) TM Dist: >3cm Neck ROM: Full Loose/Missing/Broken Teeth: Upper and Lower Heart: RRR Lungs: CTA Assessment and Plan Assessment Anesthesia Assessment: Anesthesia Plan Discussed and Chart Reviewed Final Anesthetic Review NPO: Yes ASA Class: III Final Preanesthetic Review: Meds/Allgs Chart Reviewed, Consent Obtained/Reviewed and Anes Risks/Benef Reviewed Patient Risk: Intermediate Procedure Risk: Low Anesthetic Plan Anesthetic Plan: GA Disposition: Standard PACU
[2021-04-22 07:20] LABS: Anion Gap 14 (12-20); Blood Urea Nitrogen 52 mg/dL (9-16); Calcium 7.4 mg/dL (8.4-10.2); Carbon Dioxide 21 mmol/L (22-29); Chloride 105 mmol/L (96-108); Creatinine Clr Calc Pharmacy 22.2; Estimated Glomerular Filt Rate 23; Glucose Random 134 mg/dL (60-115); Potassium 4.7 mmol/L (3.3-5.1); Sodium 135 mmol/L (135-145)
--- NOTE | 2021-04-22 07:34 | MHC.SHP ---
Pre-Procedural Eval Section A Date of Service: 04/22/21 The patient is an INPATIENT: Yes Changes since office visit: No Cold of Flu in the past 2 weeks, No New Medical Problems, No Changes in Medication and No Patient answered all questions The History & Physical has been completed within 30 days and I have reviewed it.: Yes Section B Chief Complaint: A fib w RVR, YESSENIA Allergies: Allergies Allergy/AdvReac Type Severity Reaction Status Date / Time No Known Allergies Allergy Mild NONE Verified 04/13/21 18:49 Plan Diagnosis/Plan: Unchanged (cystoscopy, bladder biopsy, bilateral retrogrades, possible stent left side) I have reviewed the history and physical and performed a pertinent physical examination on my patient. No changes have occurred unless specified.
--- NOTE | 2021-04-22 08:27 | W.PM.OPN ---
Operative Note Operative Note Date of Service: 04/22/21 Narrative: PreOperative Diagnosis: left hydronephrosis Post Operative Diagnosis: bilateral hydronephrosis, blood blisters across the base of bladder question tumor Procedure: 1. Right retrograde with right stent placement 2. TURBT with fulguration medium size 3. Left retrograde with left stent placement Surgeon: Dr Camden Winchester Anesthesia: general Indications for procedure: persistently elevated creatinine with hydronephrosis and question of left bladder wall thickening on imaging Procedure: After informed consent was verified the patient was brought to the operating room and placed in a supine position. anesthesia was administered per protocol. the patient was placed in modified dorsal lithotomy position and prepped and draped in sterile fashion. Safety pause time-out performed. Antibiotics have been given. Cystoscope inserted per urethra. Within the bladder there appeared to be blood blisters around base of the left bladder going up the left sidewall. The left ureteric orifice was inflamed with debris. The right ureteric orifice appeared normal. Retrograde examination performed with the right side mild hydronephrosis seen. Six [place] by 24 cm stent placed. at that point the left ureteric orifice was seen cannulated and retrograde examination performed. Hydronephrosis was present down to the level of the bladder. Guidewire was placed. Open-ended catheter was placed. The cystoscope was removed. The resectoscope was placed. The floor of the bladder was resected through the mucosa over the blood blister area. Extensive area was fulgurated running from the midline up to the left sidewall. These blood blisters appeared to burst with cautery and were superficial. At completion of the fulguration a 6 [place] by 24 cm stent was placed. He tolerated procedure well was extubated in operating room transferred in stable condition to the recovery area Pathology: base of bladder resection Drains: bilateral stents
[2021-04-22] MEDS: 0.9 % Sodium Chloride Flush 3 ML SYRINGE IVFLUSH ×3 (09:58→19:54)
[2021-04-22] MEDS: Metoprolol Succinate ER 25 MG TAB.ER.24H PO (10:34)
[2021-04-22] MEDS: Docusate Sodium 100 MG CAPSULE PO (10:34)
[2021-04-22] MEDS: Furosemide 20 MG/2 ML VIAL IVPUSH ×2 (10:35→17:32)
[2021-04-22] MEDS: Omeprazole 20 MG CAPSULE.DR PO (10:35)
[2021-04-22] MEDS: Apixaban 5 MG TABLET PO ×2 (10:35→19:51)
[2021-04-22] MEDS: Aspirin Enteric Coated 81 MG TABLET.DR PO (10:35)
[2021-04-22 11:37] LABS: Glucose, Whole Blood 140 mg/dL (60-115)
--- NOTE | 2021-04-22 14:25 | HO.PM.IMPN ---
Subjective Subjective Date of Service: 04/22/21 Review of Systems Seen and examined this morning feeling better. no abdominal pain no diarrhea, nausea or vomiting reports a BM each day during admission Bilateral hydronephrosis, blood blisters across the base of bladder question tumor 1.? Right retrograde with right stent placement 2.? TURBT with fulguration medium size 3.? Left retrograde with left stent placement Physical Exam Vital Signs: Vital Signs: Last Vital Signs Temp 98.7 F 04/22/21 12:00 Pulse 87 04/22/21 12:00 Resp 18 04/22/21 12:00 BP 144/68 H 04/22/21 12:00 Pulse Ox 97 04/22/21 12:00 BMI result Body Mass Index 27.8 Appearing in no acute distress lung sounds are clear to auscultation heart regular rate rhythm, clear S1, S2 positive bowel sounds, abdomen is soft, nontender neuro patient is alert x3, no focal deficits Objective Data Active Medications Acetaminophen (Acetaminophen 325 Mg Tablet) 650 mg PO Q6H PRN PRN Reason: Pain, Mild (Pain Scale 1-3) Last Admin: 04/22/21 03:56 Dose: 650 mg Documented by: RAFFAELE Acetaminophen (Acetaminophen 325 Mg Tablet) 650 mg PO ONCE PRN PRN Reason: Pain, Mild (Pain Scale 1-3) Albuterol Sulfate (Albuterol Sulfate (0.083%) 2.5 Mg/3 Ml Vial.Neb) 2.5 mg INHALE ONCE PRN PRN Reason: Wheezing Apixaban (Apixaban 5 Mg Tablet) 5 mg PO BID [facility] Last Admin: 04/22/21 10:35 Dose: 5 mg Documented by: REAGAN Aspirin (Aspirin Enteric Coated 81 Mg Tablet.Dr) 81 mg PO DAILY [facility] Last Admin: 04/22/21 10:35 Dose: 81 mg Documented by: REAGAN Dextrose (Dextrose 50 % 25 Gm/50 Ml Syringe) 25 gm IVPUSH Q15M PRN; Protocol PRN Reason: per Hypoglycemia Standing Ord. Docusate Sodium (Docusate Sodium 100 Mg Capsule) 100 mg PO DAILY [facility] Last Admin: 04/22/21 10:34 Dose: 100 mg Documented by: REAGAN Dorzolamide/Timolol (Dorzolamide/Timolo 2.23%/0.68% 10 Ml Drbtl) 1 drop EYE-BOTH DAILY [facility] Last Admin: 04/22/21 10:35 Dose: Not Given Documented by: REAGAN Non-Admin Reason: Off Unit: Surgery Fentanyl (Fentanyl Citrate/Pf 100 Mcg/2 Ml Vial) 25 mcg IVPUSH Q5M PRN; Protocol PRN Reason: Pain, Moderate (Pain Scale 4-6 Furosemide (Furosemide 20 Mg/2 Ml Vial) 20 mg IVPUSH BID@0900,1800 [facility]; Protocol Last Admin: 04/22/21 10:35 Dose: 20 mg Documented by: REAGAN Glucose (Glucose Gel 15 Gm Gel..Gram.) 15 gm PO Q15M PRN; Protocol PRN Reason: per Hypoglycemia Standing Ord. Ceftriaxone Sodium 1 gm/ (Sodium Chloride) 50 mls @ 100 mls/hr IV Q24H [facility] Last Infusion: 04/21/21 18:10 Dose: 0 mls/hr Documented by: REAGAN Insulin Glargine (Insulin Glargine,Hum.Rec.Anlog 100 Unit/Ml 10 Ml Vial) 12 unit SUBCUT BEDTIME [facility] Last Admin: 04/21/21 20:13 Dose: 12 unit Documented by: RAFFAELE Insulin Human Lispro (Insulin Lispro 100 Unit/Ml 3 Ml Vial) 0 unit SUBCUT QIDACHS [facility]; Protocol Last Admin: 04/22/21 13:25 Dose: Not Given Documented by: REAGAN Non-Admin Reason: No Insulin Coverage Latanoprost (Latanoprost 0.005 % Ophth Betina 2.5 Ml Drops) 1 drop EYE-BOTH BEDTIME [facility] Last Admin: 04/21/21 21:23 Dose: 1 drop Documented by: RAFFAELE Metoprolol Succinate (Metoprolol Succinate Er 25 Mg Tab.Er.24h) 25 mg PO DAILY [facility]; Protocol Last Admin: 04/22/21 10:34 Dose: 25 mg Documented by: REAGAN Omeprazole (Omeprazole 20 Mg Capsule.Dr) 20 mg PO DAILY [facility] Last Admin: 04/22/21 10:35 Dose: 20 mg Documented by: REAGAN Ondansetron HCl (Ondansetron Hcl 4 Mg/2 Ml Vial) 4 mg IVPUSH Q8H PRN PRN Reason: Nausea and Vomiting Last Admin: 04/20/21 23:33 Dose: 4 mg Documented by: FRANC Ondansetron HCl (Ondansetron Hcl 4 Mg/2 Ml Vial) 4 mg IVPUSH ONCE PRN PRN Reason: Nausea and Vomiting Oxycodone HCl (Oxycodone Hcl Immed Release 5 Mg Tablet) 5 mg PO ONCE PRN PRN Reason: Pain, Severe (Pain Scale 7-10) Pharmacy Consult (Consult Rx Vancomycin Dosing) 1 each MISCELLANE DAILY PRN PRN Reason: Consult order Polyethylene Glycol (Polyethylene Glycol 3350 17 Gm Powd.Pack) 17 gm PO DAILY PRN PRN Reason: constipation Last Admin: 04/20/21 23:34 Dose: 17 gm Documented by: FRANC Sodium Chloride (0.9 % Sodium Chloride Flush 3 Ml Syringe) 3 ml IVFLUSH [facility] Last Admin: 04/22/21 09:58 Dose: 3 ml Documented by: REAGAN Labs CBC & Chem 7: 04/22/21 06:15 04/22/21 06:15 Labs: Laboratory Results - last 24 hr 04/21/21 04/21/21 04/22/21 16:33 19:51 06:15 MCV 93.3 MCH 30.4 MCHC 32.6 RDW 14.2 Plt Count 495 H MPV 10.4 Absolute Nucleated RBC 0.000 Nucleated RBC % (auto) 0.0 Anion Gap Estim Creat Clear Calc Estimated GFR POC Glucose 212 H 218 H Random Glucose Calcium B-Natriuretic Peptide Blood Type Antibody Screen Crossmatch 04/22/21 04/22/21 04/22/21 06:15 06:15 06:50 MCV MCH MCHC RDW Plt Count MPV Absolute Nucleated RBC Nucleated RBC % (auto) Anion Gap 14 Estim Creat Clear Calc 22.2 Estimated GFR 23 POC Glucose 127 H Random Glucose 134 H Calcium 7.4 L B-Natriuretic Peptide 302 H Blood Type Antibody Screen Crossmatch 04/22/21 04/22/21 08:40 11:27 MCV MCH MCHC RDW Plt Count MPV Absolute Nucleated RBC Nucleated RBC % (auto) Anion Gap Estim Creat Clear Calc Estimated GFR POC Glucose 140 H Random Glucose Calcium B-Natriuretic Peptide Blood Type O Positive Antibody Screen NEGATIVE Crossmatch See Detail Microbiology Microbiology Results: Microbiology 04/21/21 11:42 Blood Culture - Preliminary Blood - Venous No growth after 24 hours. 04/21/21 11:50 Blood Culture - Preliminary Blood - Venous No growth after 24 hours. Assessment and Plan (1) UTI (urinary tract infection): Status: Acute (2) PAF (paroxysmal atrial fibrillation): Status: Acute (3) Bacteremia: Status: Acute (4) Hydronephrosis: Status: Acute (5) Bladder wall thickening: Status: Acute Plan 75-year-old male with past medical history of hypertension, diabetes who presents to the hospital with complaints of chest pain found to have AFib with RVR as well as? YESSENIA Bilateral hydronephrosis, blood blisters across the base of bladder question tumor Right retrograde with right stent placement TURBT with fulguration medium size Left retrograde with left stent placement Fevers. likely from blisters found during cystoscopy blood cx neg for 24 hours ID consult Anemia, progressive, no acute blood loss follow closely as patient is post cystoscopy 1 unit PRBC ordered check HH post transfusion SOB. started last night ? acute CHF on CXR, BNP 302 Cardiology consult pending continue IV lasix for now GNR bacteremia secondary to UTI 2/2 BCx from 04/15 growing e.coli; repeat BCx from 04/16 negative to date urine growing e.coli, strep viridans Initially treated with zosyn seen by ID, changed to IV ceftriaxone YESSENIA on CKD stage 3 to 4 Baseline SCr range 2 to 2.5, presented with 3.99, creatinine near baseline at 2.43 improved with IV hydration, but there is a concern over post-renal issues contributing Urology re consulted for persistent hydronephrosis Asymmetric bladder wall thickening concerning over neoplastic process raised on CT scan repeat CT scan showing persistent hydroureteronephrosis with ?obstruction at bladder level from suspected neoplasm Abdominal pain resolved repeat CT abdomen no acute pathology LFTs wnl hyperkalemia resolved s/p lokelma follow BMP New onset A Fib with RVR now in sinus on telemonitor Eliquis started this admission, echo done showing preserved EF Metoprolol started for rate control Seen by Cardiology -rec outpatient ischemic workup/cardiology follow up HTN bp on the softer side metoprolol started by cardiology for afib rate control hold lisinopril follow BP closely Chest pain likely due to tachycardia ekg not suggestive of ACS resolved DM pioglitazone, jardiance on hold continue Lantus, SSI Full code DVT prophylaxis: Adam Attending: Dr. Iyer Quality Stroke Does the patient have a stroke diagnosis?: No VTE Prior VTE?: No VTE Risk Level:: Medical - moderate - high VTE Device Contraindication: Treatment Not Indicated VTE Drug Contraindication: N/A - Med Ordered
--- NOTE | 2021-04-22 15:19 | MHC.CM.PN ---
Per ROUNDS discussion, Patient is going to the OR for stent today and spiking temps and therefor not yet medically cleared for dc. CM will follow.
[2021-04-22 16:38] LABS: Glucose, Whole Blood 169 mg/dL (60-115)
[2021-04-22] MEDS: Insulin Lispro 100 UNIT/ML 3 ML VIAL SUBCUT ×2 (17:00→19:49)
[2021-04-22] MEDS: cefTRIAXone sodium 1 GM in 0.9 % Sodium Chloride 50 ML IV (17:32)
[2021-04-22 19:47] LABS: Glucose, Whole Blood 214 mg/dL (60-115)
[2021-04-22] MEDS: Insulin Glargine,Hum.rec.anlog 100 UNIT/ML 10 ML VIAL 12 UNIT SUBCUT (19:50)
[2021-04-22] MEDS: Latanoprost 0.005 % Ophth Sol 2.5 ML DROPS 1 DROP EYE-BOTH (19:51)
[2021-04-22 20:30] LABS: Glucose, Whole Blood 221 mg/dL (60-115)
[2021-04-23] VITALS (13 sets, daily range): BP systolic 101–136; BP diastolic 51–78; PULSE 72–89; RESP 14–20; TEMP 36–37.8; O2SAT 94–97
--- NOTE | 2021-04-23 00:56 | PM.EVENT ---
Event Note Date of Service: 04/23/21 Event Note: Hematuria: noted hematuria with clots stat CBC. Notified Urology consult Held tamika COOK for now, untill cleared by Urology.
[2021-04-23 01:08] LABS: Basophils Absolute Auto 0.1 X10*3/uL (0.0-0.2); Basophils Percent Auto 0.3 % (0-2); Eosinophils Absolute Auto 0.2 X10*3/uL (0.0-0.4); Eosinophils Percent Auto 0.7 % (0-4); Hematocrit 22.6 % (42.0-52.0); Hemoglobin 7.5 g/dl (14.0-18.0); Imm Gran Abs Auto 0.75 X10*3/uL (0.00-0.03); Imm Gran Pct Auto 3.4 % (0.0-0.4); Lymphocytes Absolute Auto 1.1 X10*3/uL (1.2-4.9); Lymphocytes Percent Auto 5.1 % (20-40); MANUAL DIFF FLAG SCAN; Mean Corpuscular HGB Conc 33.2 g/dl (31.0-36.0); Mean Corpuscular Volume 93.4 fL (80.0-98.0); Mean Platelet Volume 9.8 fL (9.4-12.4); Monocytes Absolute Auto 1.6 X10*3/uL (0.1-1.2); Monocytes Percent Auto 7.3 % (2-11); Neutrophils Absolute Auto 18.4 x10*3/uL (2.0-8.3); Neutrophils Percent Auto 83.2 % (45-73); Platelet Count 508 X10*3/uL (160-400); Red Blood Count 2.42 X10*6/uL (4.60-5.80); Red Cell Distribution Width 14.2 % (11.0-16.0); SCAN SMEAR FLAG 1; White Blood Count 22.1 X10*3/uL (4.8-10.8)
[2021-04-23 01:26] LABS: SLIDE REVIEW VERIFIED
[2021-04-23] MEDS: Acetaminophen 325 MG TABLET 650 MG PO ×2 (03:21→21:12)
--- NOTE | 2021-04-23 06:37 | PC.NURSE ---
Brought to attention that there was leaking around patient's penis. When examined it was noted that patient's Walsh bag was dark red for output. first bladder scan taken around 12:55am and messaged overnight hospitalist about output color and clot that came from Walsh bag attachment. Hospitalist ordered stat CBC and to hold morning jayne eliquis and aspirin. Also advised by overnight hospitalist to contact Dr. Villalba about finding. Urologist notified about bladder scan and output at 1:01am and advised to flush with 60mL normal saline. Also informed nursing shell core and molding supervisor about patient after hospitalist and urologist. Aft 3:52am, urologist was contacted again because there was no output in bag, patient's abdomen was distended, and second bladder scan showed >999mL. Nursing shell core and molding supervisor and clinical coordinator placed new Walsh in 18 [place].
[2021-04-23] MEDS: Insulin Lispro 100 UNIT/ML 3 ML VIAL SUBCUT ×4 (07:26→21:12)
[2021-04-23 07:53] LABS: Glucose, Whole Blood 197 mg/dL (60-115)
[2021-04-23 07:55] LABS: Vancomycin Trough 5.4 mcg/mL (10.0-20.0)
[2021-04-23 08:17] LABS: MANUAL DIFF FLAG NO
[2021-04-23 08:18] LABS: Basophils Absolute Auto 0.1 X10*3/uL (0.0-0.2); Basophils Percent Auto 0.3 % (0-2); Eosinophils Percent Auto 0.2 % (0-4); Lymphocytes Absolute Auto 0.9 X10*3/uL (1.2-4.9); Lymphocytes Percent Auto 4.4 % (20-40); Mean Corpuscular HGB Conc 33.2 g/dl (31.0-36.0); Mean Corpuscular Volume 93.5 fL (80.0-98.0); Mean Platelet Volume 10.2 fL (9.4-12.4); Monocytes Absolute Auto 1.4 X10*3/uL (0.1-1.2); Monocytes Percent Auto 7.2 % (2-11); Neutrophils Absolute Auto 16.7 x10*3/uL (2.0-8.3); Neutrophils Percent Auto 83.9 % (45-73); Platelet Count 486 X10*3/uL (160-400); Red Blood Count 2.16 X10*6/uL (4.60-5.80); Red Cell Distribution Width 14.2 % (11.0-16.0); White Blood Count 19.9 X10*3/uL (4.8-10.8)
[2021-04-23] MEDS: 0.9 % Sodium Chloride Flush 3 ML SYRINGE IVFLUSH ×2 (08:27→21:12)
[2021-04-23] MEDS: Metoprolol Succinate ER 25 MG TAB.ER.24H PO (08:27)
[2021-04-23] MEDS: Docusate Sodium 100 MG CAPSULE PO (08:27)
[2021-04-23] MEDS: Omeprazole 20 MG CAPSULE.DR PO (08:27)
[2021-04-23] MEDS: Furosemide 20 MG/2 ML VIAL IVPUSH (08:27)
[2021-04-23 08:32] LABS: Hemoglobin 6.7 g/dl (14.0-18.0)
[2021-04-23 08:33] LABS: Hematocrit 20.2 % (42.0-52.0)
[2021-04-23 11:28] LABS: Glucose, Whole Blood 246 mg/dL (60-115)
--- NOTE | 2021-04-23 13:19 | HO.POSTANES ---
Post Anesthesia Evaluation Post Anesthesia Evaluation Vital Signs: Vital Signs Temp Pulse Resp BP Pulse Ox 04/23/21 11:15 98.2 F 72 18 101/51 L 97 04/23/21 09:00 97.5 F 76 18 110/60 96 04/23/21 08:14 95 04/23/21 07:42 97.4 F 73 18 101/52 L 95 04/23/21 03:17 96.8 F 74 20 122/61 94 Anesthesia: General Mental Status: Awake Pain Control: Satisfactory Nausea/Vomiting: None Hydration: Adequate Anesthesia-Related Issues: No Anes. Related Issues
--- NOTE | 2021-04-23 13:26 | P.PNIM_ITS ---
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 still with fever overnight had some abdominal pain overnight, reports elam was replaced and pain resolved has some nausea, no vomiting Review of Systems Review of Systems: Yes all other systems are reviewed and are negative Constitutional Constitutional: Reports fever(s) Respiratory Respiratory: Denies cough Gastrointestinal Gastrointestinal: Reports nausea Physical Exam Vital Signs: Vital Signs: Last Vital Signs Temp 98.2 F 04/23/21 11:15 Pulse 72 04/23/21 11:15 Resp 18 04/23/21 11:15 BP 101/51 L 04/23/21 11:15 Pulse Ox 97 04/23/21 11:15 BMI result Body Mass Index 27.8 Const: General: cooperative, comfortable, alert, awake and ill appearing Nutritional Appearance: average body habitus Resp: Effort & Inspection: normal respiratory effort and able to speak in c omplete sentences Cardio: Rate: regular rate Heart sounds: S1 normal heart sound present and S2 normal heart sound present GI: Palpation (GI): Soft to palpation and nontender : Other: elam, punch colored urine Objective Data Active Medications Acetaminophen (Acetaminophen 325 Mg Tablet) 650 mg PO Q6H PRN PRN Reason: Pain, Mild (Pain Scale 1-3) Last Admin: 04/23/21 03:21 Dose: 650 mg Documented by: AARON Acetaminophen (Acetaminophen 325 Mg Tablet) 650 mg PO ONCE PRN PRN Reason: Pain, Mild (Pain Scale 1-3) Albuterol Sulfate (Albuterol Sulfate (0.083%) 2.5 Mg/3 Ml Vial.Neb) 2.5 mg INHALE ONCE PRN PRN Reason: Wheezing Apixaban (Apixaban 5 Mg Tablet) 5 mg PO BID [facility] TO [facility] Last Admin: 04/22/21 19:51 Dose: 5 mg Documented by: AARON Aspirin (Aspirin Enteric Coated 81 Mg Tablet.) 81 mg PO DAILY [facility] Last Admin: 04/22/21 10:35 Dose: 81 mg Documented by: REAGAN Dextrose (Dextrose 50 % 25 Gm/50 Ml Syringe) 25 gm IVPUSH Q15M PRN; Protocol PRN Reason: per Hypoglycemia Standing Ord. Docusate Sodium (Docusate Sodium 100 Mg Capsule) 100 mg PO DAILY [facility] Last Admin: 04/23/21 08:27 Dose: 100 mg Documented by: FRANC Dorzolamide/Timolol (Dorzolamide/Timolo 2.23%/0.68% 10 Ml Drbtl) 1 drop EYE- BOTH DAILY [facility] Last Admin: 04/22/21 10:35 Dose: Not Given Documented by: REAGAN Non-Admin Reason: Off Unit: Surgery Fentanyl (Fentanyl Citrate/Pf 100 Mcg/2 Ml Vial) 25 mcg IVPUSH Q5M PRN; Protocol PRN Reason: Pain, Moderate (Pain Scale 4-6 Glucose (Glucose Gel 15 Gm Gel..Gram.) 15 gm PO Q15M PRN; Protocol PRN Reason: per Hypoglycemia Standing Ord. Ceftriaxone Sodium 1 gm/ (Sodium Chloride) 50 mls @ 100 mls/hr IV Q24H [facility] Last Infusion: 04/22/21 18:44 Dose: 0 mls/hr Documented by: REAGAN Insulin Glargine (Insulin Glargine,Hum.Rec.Anlog 100 Unit/Ml 10 Ml Vial) 12 unit SUBCUT BEDTIME [facility] Last Admin: 04/22/21 19:50 Dose: 12 unit Documented by: AARON Insulin Human Lispro (Insulin Lispro 100 Unit/Ml 3 Ml Vial) 0 unit SUBCUT QID ACHS [facility] TO [facility]; Protocol Last Admin: 04/23/21 11:49 Dose: 4 unit Documented by: FRANC Latanoprost (Latanoprost 0.005 % Ophth Betina 2.5 Ml Drops) 1 drop EYE-BOTH BEDTIME [facility] Last Admin: 04/22/21 19:51 Dose: 1 drop Documented by: AARON Metoprolol Succinate (Metoprolol Succinate Er 25 Mg Tab.Er.24h) 25 mg PO DAILY [facility]; Protocol Last Admin: 04/23/21 08:27 Dose: 25 mg Documented by: FRANC Omeprazole (Omeprazole 20 Mg Capsule.Dr) 20 mg PO DAILY [facility] Last Admin: 04/23/21 08:27 Dose: 20 mg Documented by: FRANC Ondansetron HCl (Ondansetron Hcl 4 Mg/2 Ml Vial) 4 mg IVPUSH Q8H PRN PRN Reason: Nausea and Vomiting Last Admin: 04/20/21 23:33 Dose: 4 mg Documented by: FRANC Ondansetron HCl (Ondansetron Hcl 4 Mg/2 Ml Vial) 4 mg IVPUSH ONCE PRN PRN Reason: Nausea and Vomiting Oxycodone HCl (Oxycodone Hcl Immed Release 5 Mg Tablet) 5 mg PO ONCE PRN PRN Reason: Pain, Severe (Pain Scale 7-10) Pharmacy Consult (Consult Rx Vancomycin Dosing) 1 each MISCELLANE DAILY PRN PRN Reason: Consult order Polyethylene Glycol (Polyethylene Glycol 3350 17 Gm Powd.Pack) 17 gm PO DAILY PRN PRN Reason: constipation Last Admin: 04/20/21 23:34 Dose: 17 gm Documented by: FRANC Sodium Chloride (0.9 % Sodium Chloride Flush 3 Ml Syringe) [facility] Last Admin: 04/23/21 08:27 Dose: 3 ml Documented by: FRANC Labs CBC & Chem 7: 04/23/21 07:07 04/22/21 06:15 Labs: Laboratory Results - last 24 hr 04/22/21 04/22/21 04/22/21 08:40 16:34 19:43 MCV MCH MCHC RDW Plt Count MPV Immature Gran % (Auto) Neut % (Auto) Lymph % (Auto) [place] % (Auto) Eos % (Auto) Baso % (Auto) Lymph # (Auto) [place] # (Auto) Eos # (Auto) Baso # (Auto) Abs Immat Gran (auto) Absolute Neuts (auto) Absolute Nucleated RBC Nucleated RBC % (auto) Smear Tech's Comments Smear Path Review POC Glucose 169 H 214 H Vancomycin Trough Blood Type O Positive Antibody Screen NEGATIVE Crossmatch See Detail 04/22/21 04/23/21 04/23/21 20:17 01:00 07:07 MCV 93.4 MCH 31.0 MCHC 33.2 RDW 14.2 Plt Count 508 H MPV 9.8 Immature Gran % (Auto) 3.4 H Neut % (Auto) 83.2 H Lymph % (Auto) 5.1 L [place] % (Auto) 7.3 Eos % (Auto) 0.7 Baso % (Auto) 0.3 Lymph # (Auto) 1.1 L [place] # (Auto) 1.6 H Eos # (Auto) 0.2 Baso # (Auto) 0.1 Abs Immat Gran (auto) 0.75 H Absolute Neuts (auto) 18.4 H Absolute Nucleated RBC 0.000 Nucleated RBC % (auto) 0.0 Smear Tech's Comments VERIFIED Smear Path Review POC Glucose 221 H Vancomycin Trough 5.4 L Blood Type Antibody Screen Crossmatch 04/23/21 04/23/21 04/23/21 07:07 07:44 11:17 MCV 93.5 MCH 31.0 MCHC 33.2 RDW 14.2 Plt Count 486 H MPV 10.2 Immature Gran % (Auto) 4.0 H Neut % (Auto) 83.9 H Lymph % (Auto) 4.4 L [place] % (Auto) 7.2 Eos % (Auto) 0.2 Baso % (Auto) 0.3 Lymph # (Auto) 0.9 L [place] # (Auto) 1.4 H Eos # (Auto) 0.0 Baso # (Auto) 0.1 Abs Immat Gran (auto) 0.80 H Absolute Neuts (auto) 16.7 H Absolute Nucleated RBC 0.000 Nucleated RBC % (auto) 0.0 Smear Tech's Comments Smear Path Review SEE NOTE POC Glucose 197 H 246 H Vancomycin Trough Blood Type Antibody Screen Crossmatch Microbiology Microbiology Results: Microbiology 04/21/21 11:42 Blood Culture - Preliminary Blood - Venous No growth after 24 hours. 04/21/21 11:50 Blood Culture - Preliminary Blood - Venous No growth after 24 hours. Assessment and Plan (1) UTI (urinary tract infection): Status: Acute (2) PAF (paroxysmal atrial fibrillation): Status: Acute (3) Bacteremia: Status: Acute Plan 75-year-old male with past medical history of hypertension, diabetes who presents to the hospital with complaints of chest pain found to have AFib with RVR as well as? YESSENIA Bilateral hydronephrosis seen by urology s/p b/l stent placement 04/22 Asymmetric bladder wall thickening concerning over neoplastic process raised on CT scan repeat CT scan showing persistent hydroureteronephrosis with ?obstruction at bladder level from suspected neoplasm re-evaluated by urology s/p TURBT with fulguration 04/22 Normocytic Anemia has been trending down but also with hematuria now 2 unit PRBC ordered follow CBC Hematuria likely r/t TURBT elam in place ASA, Eliquis on hold follow CBC Intermittent fever no sepsis, leukocytosis leukomoid reaction per ID continue IV ceftriaxone ID re-consulted SOB. resolved echo from 04/14 showing LVEF 55-60%, diastolic function unable to be determined ? 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 Baseline SCr range 2 to 2.5, presented with 3.99, creatinine near baseline at 2.43 improved with IV hydration, but there is a concern over post-renal issues contributing Urology re consulted for persistent hydronephrosis s/p b/l stent as above hyperkalemia resolved s/p lokelma follow BMP New onset A Fib with RVR now in sinus on telemonitor Eliquis started this admission, echo done showing preserved EF Metoprolol started for rate control Seen by Cardiology -rec outpatient ischemic workup/cardiology follow up Eliquis currently on hold for hematuria HTN bp on the softer side metoprolol started by cardiology for afib rate control hold lisinopril follow BP closely Chest pain likely due to tachycardia ekg not suggestive of ACS resolved DM pioglitazone, jardiance on hold continue Lantus, SSI Full code DVT prophylaxis: Adam Attending: Dr. Iyer Quality Stroke Does the patient have a stroke diagnosis?: No VTE Prior VTE?: No VTE Risk Level:: Medical - moderate - high VTE Device Contraindication: Treatment Not Indicated VTE Drug Contraindication: N/A - Med Ordered
[2021-04-23 17:13] LABS: Glucose, Whole Blood 279 mg/dL (60-115)
[2021-04-23] MEDS: cefTRIAXone sodium 1 GM in 0.9 % Sodium Chloride 50 ML IV (17:49)
[2021-04-23 20:33] LABS: Glucose, Whole Blood 256 mg/dL (60-115)
[2021-04-23] MEDS: Insulin Glargine,Hum.rec.anlog 100 UNIT/ML 10 ML VIAL 12 UNIT SUBCUT (21:12)
[2021-04-23] MEDS: Latanoprost 0.005 % Ophth Sol 2.5 ML DROPS 1 DROP EYE-BOTH (21:12)
[2021-04-24] VITALS (9 sets, daily range): BP systolic 112–165; BP diastolic 56–78; PULSE 72–88; RESP 16–19; TEMP 36.4–37.5; O2SAT 94–98
[2021-04-24 06:42] LABS: Hematocrit 28.8 % (42.0-52.0); Hemoglobin 9.5 g/dl (14.0-18.0); Mean Corpuscular Volume 94.1 fL (80.0-98.0); Mean Platelet Volume 9.7 fL (9.4-12.4); Platelet Count 453 X10*3/uL (160-400); Red Blood Count 3.06 X10*6/uL (4.60-5.80); Red Cell Distribution Width 13.7 % (11.0-16.0); White Blood Count 18.6 X10*3/uL (4.8-10.8)
[2021-04-24 07:16] LABS: Anion Gap 14 (12-20); Blood Urea Nitrogen 53 mg/dL (9-16); Calcium 7.2 mg/dL (8.4-10.2); Carbon Dioxide 22 mmol/L (22-29); Chloride 104 mmol/L (96-108); Creatinine Clr Calc Pharmacy 22.8; Estimated Glomerular Filt Rate 23; Glucose Random 122 mg/dL (60-115); Potassium 4.9 mmol/L (3.3-5.1); Sodium 135 mmol/L (135-145)
[2021-04-24 07:51] LABS: Glucose, Whole Blood 122 mg/dL (60-115)
[2021-04-24] MEDS: Metoprolol Succinate ER 25 MG TAB.ER.24H PO (10:10)
[2021-04-24] MEDS: Omeprazole 20 MG CAPSULE.DR PO (10:11)
[2021-04-24] MEDS: 0.9 % Sodium Chloride Flush 3 ML SYRINGE IVFLUSH ×3 (10:12→20:47)
[2021-04-24] MEDS: Dorzolamide/Timolo 2.23%/0.68% 10 ML DRBTL 1 DROP EYE-BOTH (10:12)
[2021-04-24 11:28] LABS: Glucose, Whole Blood 232 mg/dL (60-115)
[2021-04-24] MEDS: Insulin Lispro 100 UNIT/ML 3 ML VIAL SUBCUT ×3 (12:00→20:47)
--- NOTE | 2021-04-24 12:00 | MHC.CM.PN ---
per rounds pt expected to dc on tue called and spoke to marlee who has authorized hvns for sn
--- NOTE | 2021-04-24 13:11 | MHC.CM.PN ---
per rounds pt quinten to be dcd kong whalen approved vna/hvns
--- NOTE | 2021-04-24 14:24 | P.CDIC_ITS ---
CDI Concurrent Query Documentation Clarification: PHYSICIAN'S DOCUMENTATION REQUEST Date of Query: 04/24/21 1424 Patient Name: Matthew Abel Admit Date: 04/14/21 Dear Doctor, A review of the medical record indicates additional documentation may be needed. Please review below and update the documentation accordingly. Clinical Indicators: Risk Factors/Clinical Indicators/Treatments Per MD progress note 04/23/21: Normocytic Anemia has been trending down but also with hematuria now 2 unit PRBC ordered follow CBC H/H on 04/23/21: 6.7/20.2 Based on the above, could you clarify in the Progress Notes which of the following is the most likely type of anemia you are evaluating, treating, and/or monitoring? * Acute blood loss anemia * Acute blood loss anemia with baseline chronic anemia (specify type) * Anemia of chronic disease- indicate if neoplastic disease, CKD, or other * Other ? please specify * Unable to determine Use of terms such as suspected, likely, concern for, or probable (associated with a specific diagnosis that is being evaluated, monitored, or treated as if it exists) are acceptable and can be coded in the inpatient setting, when documented at the time of discharge. Thank you, Carla Pressley RN Extension: [phone] Please use your independent medical judgment in providing your response. THIS QUERY IS PART OF THE PERMANENT MEDICAL RECORD Provider Response: Anemia Other Diagnosis: acute blood loss with underlying chronic anemia
--- NOTE | 2021-04-24 14:46 | HO.PM.IMPN ---
Subjective Subjective Date of Service: 04/24/21 Interval History: seen and examined this morning no overnight events, reports that he slept well denies fever no abdominal pain Review of Systems Review of Systems: Yes all other systems are reviewed and are negative Constitutional Constitutional: Denies chills and Denies fever(s) Cardiovascular Cardiovascular: Denies dyspnea Respiratory Respiratory: Denies cough and Denies dyspnea Gastrointestinal Gastrointestinal: Denies abdominal pain Physical Exam Vital Signs: Vital Signs: Last Vital Signs Temp 98.4 F 04/24/21 11:06 Pulse 84 04/24/21 11:06 Resp 18 04/24/21 11:06 BP 121/62 04/24/21 11:06 Pulse Ox 96 04/24/21 11:06 BMI result Body Mass Index 27.8 Const: General: cooperative, comfortable, no acute distress, alert and awake Nutritional Appearance: average body habitus Eyes: Pupils: Equal, round and reactive pupils present Resp: Effort & Inspection: normal respiratory effort and able to speak in complete sentences Auscultation: clear to auscultation bilaterally Cardio: Rate: regular rate Heart sounds: S1 normal heart sound present and S2 normal heart sound present GI: Other: softly distended ?slight improvement from yesterday, non-tender; + BS Inspection: No distended Palpation (GI): Soft to palpation, nontender and not rigid : Other: elam, punch colored urine Neuro: Cranial nerves: Yes Equal, round and reactive pupils present Extrem: Other: moving all 4 extremities spontaneously Objective Data Active Medications Acetaminophen (Acetaminophen 325 Mg Tablet) 650 mg PO Q6H PRN PRN Reason: Pain, Mild (Pain Scale 1-3) Last Admin: 04/23/21 21:12 Dose: 650 mg Documented by: AARON Apixaban (Apixaban 5 Mg Tablet) 5 mg PO BID [facility] [place] Last Admin: 04/22/21 19:51 Dose: 5 mg Documented by: AARON Aspirin (Aspirin Enteric Coated 81 Mg Tablet.) 81 mg PO DAILY [facility] [place] Last Admin: 04/22/21 10:35 Dose: 81 mg Documented by: REAGAN Dextrose (Dextrose 50 % 25 Gm/50 Ml Syringe) 25 gm IVPUSH Q15M PRN; Protocol PRN Reason: per Hypoglycemia Standing Ord. Docusate Sodium (Docusate Sodium 100 Mg Capsule) 100 mg PO DAILY [facility] [place] Last Admin: 04/24/21 10:13 Dose: Not Given Documented by: IGNACIO Non-Admin Reason: Patient Refused Dorzolamide/Timolol (Dorzolamide/Timolo 2.23%/0.68% 10 Ml Drbtl) 1 drop EYE-BOTH DAILY [facility] [place] Last Admin: 04/24/21 10:12 Dose: 1 drop Documented by: IGNACIO Glucose (Glucose Gel 15 Gm Gel..Gram.) 15 gm PO Q15M PRN; Protocol PRN Reason: per Hypoglycemia Standing Ord. Ceftriaxone Sodium 1 gm/ (Sodium Chloride) 50 mls @ 100 mls/hr IV Q24H [facility] [place] Last Infusion: 04/23/21 18:46 Dose: 0 mls/hr Documented by: IGNACIO Insulin Glargine (Insulin Glargine,Hum.Rec.Anlog 100 Unit/Ml 10 Ml Vial) 12 unit SUBCUT BEDTIME [facility] [place] Last Admin: 04/23/21 21:12 Dose: 12 unit Documented by: AARON Insulin Human Lispro (Insulin Lispro 100 Unit/Ml 3 Ml Vial) 0 unit SUBCUT QIDACHS [facility] [place]; Protocol Last Admin: 04/24/21 12:00 Dose: 4 unit Documented by: IGNACIO Latanoprost (Latanoprost 0.005 % Ophth Betina 2.5 Ml Drops) 1 drop EYE-BOTH BEDTIME [facility] [place] Last Admin: 04/23/21 21:12 Dose: 1 drop Documented by: AARON Metoprolol Succinate (Metoprolol Succinate Er 25 Mg Tab.Er.24h) 25 mg PO DAILY [facility] [place]; Protocol Last Admin: 04/24/21 10:10 Dose: 25 mg Documented by: IGNACIO Omeprazole (Omeprazole 20 Mg Capsule.Dr) 20 mg PO DAILY [facility] [place] Last Admin: 04/24/21 10:11 Dose: 20 mg Documented by: IGNACIO Ondansetron HCl (Ondansetron Hcl 4 Mg/2 Ml Vial) 4 mg IVPUSH Q8H PRN PRN Reason: Nausea and Vomiting Last Admin: 04/20/21 23:33 Dose: 4 mg Documented by: FRANC Pharmacy Consult (Consult Rx Vancomycin Dosing) 1 each MISCELLANE DAILY PRN PRN Reason: Consult order Polyethylene Glycol (Polyethylene Glycol 3350 17 Gm Powd.Pack) 17 gm PO DAILY PRN PRN Reason: constipation Last Admin: 04/20/21 23:34 Dose: 17 gm Documented by: FRANC Sodium Chloride (0.9 % Sodium Chloride Flush 3 Ml Syringe) 3 ml IVFLUSH QSHIFT [facility] Last Admin: 04/24/21 10:12 Dose: 3 ml Documented by: IGNACIO Labs CBC & Chem 7: 04/24/21 06:23 04/24/21 06:23 Labs: Laboratory Results - last 24 hr 04/22/21 04/23/21 04/23/21 08:40 17:05 20:24 MCV MCH MCHC RDW Plt Count MPV Absolute Nucleated RBC Nucleated RBC % (auto) Anion Gap Estim Creat Clear Calc Estimated GFR POC Glucose 279 H 256 H Random Glucose Calcium Blood Type O Positive Antibody Screen NEGATIVE Crossmatch See Detail 04/24/21 04/24/21 04/24/21 06:23 06:23 07:42 MCV 94.1 MCH 31.0 MCHC 33.0 RDW 13.7 Plt Count 453 H MPV 9.7 Absolute Nucleated RBC 0.000 Nucleated RBC % (auto) 0.0 Anion Gap 14 Estim Creat Clear Calc 22.8 Estimated GFR 23 POC Glucose 122 H Random Glucose 122 H Calcium 7.2 L Blood Type Antibody Screen Crossmatch 04/24/21 11:08 MCV MCH MCHC RDW Plt Count MPV Absolute Nucleated RBC Nucleated RBC % (auto) Anion Gap Estim Creat Clear Calc Estimated GFR POC Glucose 232 H Random Glucose Calcium Blood Type Antibody Screen Crossmatch Microbiology Microbiology Results: Microbiology 04/21/21 11:42 Blood Culture - Preliminary Blood - Venous No growth after 48 hours. 04/21/21 11:50 Blood Culture - Preliminary Blood - Venous No growth after 48 hours. Assessment and Plan (1) Bacteremia: Status: Acute (2) PAF (paroxysmal atrial fibrillation): Status: Acute (3) UTI (urinary tract infection): Status: Acute Plan 75-year-old male with past medical history of hypertension, diabetes who presents to the hospital with complaints of chest pain found to have AFib with RVR as well as? YESSENIA Bilateral hydronephrosis seen by urology s/p b/l stent placement 04/22 Asymmetric bladder wall thickening concerning over neoplastic process raised on CT scan repeat CT scan showing persistent hydroureteronephrosis with ?obstruction at bladder level from suspected neoplasm re-evaluated by urology s/p TURBT with fulguration 04/22 Normocytic Anemia acute blood loss anemia from hematuria on chonic normocytic anemia s/p 2 unit PRBC 04/23 with appropriate rise in H/H follow CBC Hematuria likely r/t TURBT elam in place ASA, Eliquis on hold follow CBC Intermittent fever no sepsis, leukocytosis likely leukomoid reaction per ID continue IV ceftriaxone ID re-consulted GNR bacteremia secondary to UTI 04/08 BCx from 04/15 growing e.coli; repeat BCx from 04/16 negative to date urine growing e.coli, strep viridans Initially treated with zosyn seen by ID, changed to IV ceftriaxone 04/18 YESSENIA on CKD stage 4 Baseline SCr range 2 to 2.5, presented with 3.99, creatinine fluctuating improved with IV hydration, but there is a concern over post-renal issues contributing Urology re consulted for persistent hydronephrosis s/p b/l stent as above SOB. resolved echo from 04/14 showing LVEF 55-60%, diastolic function unable to be determined Cardiology consult pending IV lasix d/c due to borderline bp seems euvolemic at this time, saturating on room air hyperkalemia resolved s/p lokelma follow BMP New onset A Fib with RVR now in sinus on telemonitor Eliquis started this admission, echo done showing preserved EF Metoprolol started for rate control Seen by Cardiology -rec outpatient ischemic workup/cardiology follow up Eliquis currently on hold for hematuria HTN bp on the softer side metoprolol started by cardiology for afib rate control hold lisinopril follow BP closely Chest pain likely due to tachycardia ekg not suggestive of ACS resolved DM pioglitazone, jardiance on hold continue Lantus, SSI Full code DVT prophylaxis: Eliquis on hold, SCD boots Attending: Dr. Iyer Quality Stroke Does the patient have a stroke diagnosis?: No VTE Prior VTE?: No VTE Risk Level:: Medical - moderate - high VTE Device Contraindication: Treatment Not Indicated VTE Drug Contraindication: N/A - Med Ordered
[2021-04-24 16:21] LABS: Glucose, Whole Blood 314 mg/dL (60-115)
[2021-04-24] MEDS: cefTRIAXone sodium 1 GM in 0.9 % Sodium Chloride 50 ML IV (16:46)
[2021-04-24] MEDS: Acetaminophen 325 MG TABLET 650 MG PO (16:51)
--- NOTE | 2021-04-24 17:39 | PC.NURSE ---
[facility] was notified of patient leaking around meatus with Elam and c/o pain. Tylenol was given and ordered elam to be removed via telephone order. Elam removed pt tolerated well
[2021-04-24 20:28] LABS: Glucose, Whole Blood 238 mg/dL (60-115)
[2021-04-24] MEDS: Latanoprost 0.005 % Ophth Sol 2.5 ML DROPS 1 DROP EYE-BOTH (20:47)
[2021-04-24] MEDS: Insulin Glargine,Hum.rec.anlog 100 UNIT/ML 10 ML VIAL 12 UNIT SUBCUT (20:47)
--- NOTE | 2021-04-24 21:51 | PC.NURSE ---
Pt voided 50mL dark red urine. Up to bathroom to move bowels and voided more in toilet. Pt bladder scanned for 255mL. Will scan again at 2300.
[2021-04-25] VITALS (8 sets, daily range): BP systolic 140–185; BP diastolic 65–87; PULSE 76–92; RESP 14–20; TEMP 36.4–38.1; O2SAT 95–98
--- NOTE | 2021-04-25 05:38 | PC.NURSE ---
ASSUMED CARE OF PT AT 2300. PT IS A&O X 3. BLADDER SCANNED FOR 720 ML POST VOID. PT HAD GOLDBERG D/C'D LAST NIGHT AT 1730. DR HUTSON NOTIFIED AND GOLDBERG INSERTED ORDERED WITHOUT DIFFICULTY. PT TOLERATED PROCEDURE WELL. URINE IS BLOODY AND GOLDBERG IRIIGATED WITH SMALL TO MEDIUM SIZED CLOTS RETURNED. U/O GOOD, OVER 1000 ML.
[2021-04-25 06:57] LABS: Hematocrit 27.7 % (42.0-52.0); Hemoglobin 9.1 g/dl (14.0-18.0); Mean Corpuscular HGB Conc 32.9 g/dl (31.0-36.0); Mean Corpuscular Hemoglobin 31.5 pg (27.0-33.0); Mean Corpuscular Volume 95.8 fL (80.0-98.0); Mean Platelet Volume 9.8 fL (9.4-12.4); Platelet Count 489 X10*3/uL (160-400); Red Blood Count 2.89 X10*6/uL (4.60-5.80); Red Cell Distribution Width 13.7 % (11.0-16.0); White Blood Count 16.9 X10*3/uL (4.8-10.8)
[2021-04-25 07:12] LABS: Anion Gap 13 (12-20); Blood Urea Nitrogen 44 mg/dL (9-16); Calcium 7.4 mg/dL (8.4-10.2); Carbon Dioxide 21 mmol/L (22-29); Chloride 109 mmol/L (96-108); Creatinine Clr Calc Pharmacy 32.5; Estimated Glomerular Filt Rate 35; Glucose Random 181 mg/dL (60-115); Potassium 5.2 mmol/L (3.3-5.1); Sodium 138 mmol/L (135-145)
[2021-04-25 07:33] LABS: Glucose, Whole Blood 185 mg/dL (60-115)
[2021-04-25] MEDS: 0.9 % Sodium Chloride Flush 3 ML SYRINGE IVFLUSH ×2 (07:53→21:16)
[2021-04-25] MEDS: Insulin Lispro 100 UNIT/ML 3 ML VIAL SUBCUT ×4 (07:53→21:16)
[2021-04-25] MEDS: Docusate Sodium 100 MG CAPSULE PO (07:57)
[2021-04-25] MEDS: Metoprolol Succinate ER 25 MG TAB.ER.24H PO (07:57)
[2021-04-25] MEDS: Omeprazole 20 MG CAPSULE.DR PO (07:57)
[2021-04-25] MEDS: Dorzolamide/Timolo 2.23%/0.68% 10 ML DRBTL 1 DROP EYE-BOTH (07:57)
[2021-04-25 11:24] LABS: Glucose, Whole Blood 204 mg/dL (60-115)
--- NOTE | 2021-04-25 14:11 | P.PNIM_ITS ---
Subjective Subjective Date of Service: 04/25/21 Review of Systems seen and examined this morning no overnight events, reports that he slept well denies fever no abdominal pain Physical Exam Vital Signs: Vital Signs: Last Vital Signs Temp 98.7 F 04/25/21 11:50 Pulse 77 04/25/21 11:50 Resp 18 04/25/21 11:50 BP 140/65 H 04/25/21 11:50 Pulse Ox 96 04/25/21 11:50 BMI result Body Mass Index 27.8 Appearing in no acute distress lung sounds are clear to auscultation heart regular rate rhythm, clear S1, S2 positive bowel sounds, abdomen is soft, nontender neuro patient is alert x3, no focal deficits Hematuria Objective Data Active Medications Acetaminophen (Acetaminophen 325 Mg Tablet) 650 mg PO Q6H PRN PRN Reason: Pain, Mild (Pain Scale 1-3) Last Admin: 04/24/21 16:51 Dose: 650 mg Documented by: IGNACIO Apixaban (Apixaban 5 Mg Tablet) 5 mg PO BID [facility] Last Admin: 04/22/21 19:51 Dose: 5 mg Documented by: AARON Aspirin (Aspirin Enteric Coated 81 Mg Tablet.Dr) 81 mg PO DAILY [facility] Last Admin: 04/22/21 10:35 Dose: 81 mg Documented by: REAGAN Dextrose (Dextrose 50 % 25 Gm/50 Ml Syringe) 25 gm IVPUSH Q15M PRN; Protocol PRN Reason: per Hypoglycemia Standing Ord. Docusate Sodium (Docusate Sodium 100 Mg Capsule) 100 mg PO DAILY [facility] Last Admin: 04/25/21 07:57 Dose: 100 mg Documented by: DEMIAN Dorzolamide/Timolol (Dorzolamide/Timolo 2.23%/0.68% 10 Ml Drbtl) 1 drop EYE- BOTH DAILY [facility] Last Admin: 04/25/21 07:57 Dose: 1 drop Documented by: DEMIAN Glucose (Glucose Gel 15 Gm Gel..Gram.) 15 gm PO Q15M PRN; Protocol PRN Reason: per Hypoglycemia Standing Ord. Ceftriaxone Sodium 1 gm/ (Sodium Chloride) 50 mls @ 100 mls/hr IV Q24H [facility] Last Infusion: 04/24/21 17:49 Dose: 0 mls/hr Documented by: HO.MORRIA Insulin Glargine (Insulin Glargine,Hum.Rec.Anlog 100 Unit/Ml 10 Ml Vial) 12 unit SUBCUT BEDTIME [facility] Last Admin: 04/24/21 20:47 Dose: 12 unit Documented by: RAFFAELE Insulin Human Lispro (Insulin Lispro 100 Unit/Ml 3 Ml Vial) 0 unit SUBCUT QIDACHS [facility]; Protocol Last Admin: 04/25/21 11:54 Dose: 4 unit Documented by: DEMIAN Latanoprost (Latanoprost 0.005 % Ophth Betina 2.5 Ml Drops) 1 drop EYE-BOTH BEDTIME [facility] Last Admin: 04/24/21 20:47 Dose: 1 drop Documented by: RAFFAELE Metoprolol Succinate (Metoprolol Succinate Er 25 Mg Tab.Er.24h) 25 mg PO DAILY [facility]; Protocol Last Admin: 04/25/21 07:57 Dose: 25 mg Documented by: DEMIAN Omeprazole (Omeprazole 20 Mg Capsule.Dr) 20 mg PO DAILY [facility] Last Admin: 04/25/21 07:57 Dose: 20 mg Documented by: DEMIAN Ondansetron HCl (Ondansetron Hcl 4 Mg/2 Ml Vial) 4 mg IVPUSH Q8H PRN PRN Reason: Nausea and Vomiting Last Admin: 04/20/21 23:33 Dose: 4 mg Documented by: FRANC Pharmacy Consult (Consult Rx Vancomycin Dosing) 1 each MISCELLANE DAILY PRN PRN Reason: Consult order Polyethylene Glycol (Polyethylene Glycol 3350 17 Gm Powd.Pack) 17 gm PO DAILY PRN PRN Reason: constipation Last Admin: 04/20/21 23:34 Dose: 17 gm Documented by: FRANC Sodium Chloride (0.9 % Sodium Chloride Flush 3 Ml Syringe) 3 ml IVFLUSH QSHIFT [facility] Last Admin: 04/25/21 13:54 Dose: Not Given Documented by: DEMIAN Non-Admin Reason: No Insulin Coverage Labs CBC & Chem 7: 04/25/21 06:10 04/25/21 06:10 Labs: Laboratory Results - last 24 hr 04/24/21 04/24/21 04/25/21 15:43 20:22 06:10 MCV 95.8 MCH 31.5 MCHC 32.9 RDW 13.7 Plt Count 489 H MPV 9.8 Absolute Nucleated RBC 0.000 Nucleated RBC % (auto) 0.0 Anion Gap Estim Creat Clear Calc Estimated GFR POC Glucose 314 H 238 H Random Glucose Calcium 04/25/21 04/25/21 04/25/21 06:10 07:18 11:19 MCV MCH MCHC RDW Plt Count MPV Absolute Nucleated RBC Nucleated RBC % (auto) Anion Gap 13 Estim Creat Clear Calc 32.5 Estimated GFR 35 POC Glucose 185 H 204 H Random Glucose 181 H D Calcium 7.4 L Assessment and Plan (1) Bacteremia: Status: Acute (2) PAF (paroxysmal atrial fibrillation): Status: Acute (3) UTI (urinary tract infection): Status: Acute Plan 75-year-old male with past medical history of hypertension, diabetes who presents to the hospital with complaints of chest pain found to have AFib with RVR as well as? YESSENIA Hematuria with clots start CBI likely r/t TURBT ASA, Eliquis on hold follow CBC Bilateral hydronephrosis seen by urology s/p b/l stent placement 04/22 Asymmetric bladder wall thickening concerning over neoplastic process raised on CT scan repeat CT scan showing persistent hydroureteronephrosis with ?obstruction at bladder level from suspected neoplasm re-evaluated by urology s/p TURBT with fulguration 04/22 Normocytic Anemia acute blood loss anemia from hematuria on chonic normocytic anemia s/p 2 unit PRBC 04/23 with appropriate rise in H/H follow CBC Intermittent fever no sepsis, leukocytosis likely leukomoid reaction per ID continue IV ceftriaxone ID re-consulted GNR bacteremia secondary to UTI 04/08 BCx from 04/15 growing e.coli; repeat BCx from 04/16 negative to date urine growing e.coli, strep viridans Initially treated with zosyn seen by ID, changed to IV ceftriaxone 04/18 YESSENIA on CKD stage 4 Baseline SCr range 2 to 2.5, presented with 3.99, creatinine fluctuating improved with IV hydration, but there is a concern over post-renal issues contributing Urology re consulted for persistent hydronephrosis s/p b/l stent as above SOB. resolved echo from 04/14 showing LVEF 55-60%, diastolic function unable to be determined Cardiology consult pending IV lasix d/c due to borderline bp seems euvolemic at this time, saturating on room air hyperkalemia resolved s/p lokelma follow BMP New onset A Fib with RVR now in sinus on telemonitor Eliquis started this admission, echo done showing preserved EF Metoprolol started for rate control Seen by Cardiology -rec outpatient ischemic workup/cardiology follow up Eliquis currently on hold for hematuria HTN bp on the softer side metoprolol started by cardiology for afib rate control hold lisinopril follow BP closely Chest pain likely due to tachycardia ekg not suggestive of ACS resolved DM pioglitazone, jardiance on hold continue Lantus, SSI Full code DVT prophylaxis: Eliquis on hold, SCD boots Attending: Dr. Love Quality Stroke Does the patient have a stroke diagnosis?: No VTE Prior VTE?: No VTE Risk Level:: Medical - moderate - high VTE Device Contraindication: Treatment Not Indicated VTE Drug Contraindication: N/A - Med Ordered
[2021-04-25] MEDS: cefTRIAXone sodium 1 GM in 0.9 % Sodium Chloride 50 ML IV (15:37)
[2021-04-25 17:21] LABS: Glucose, Whole Blood 336 mg/dL (60-115)
[2021-04-25 20:13] LABS: Glucose, Whole Blood 248 mg/dL (60-115)
[2021-04-25] MEDS: Acetaminophen 325 MG TABLET 650 MG PO (21:15)
[2021-04-25] MEDS: Latanoprost 0.005 % Ophth Sol 2.5 ML DROPS 1 DROP EYE-BOTH (21:16)
[2021-04-25] MEDS: Insulin Glargine,Hum.rec.anlog 100 UNIT/ML 10 ML VIAL 12 UNIT SUBCUT (21:16)
[2021-04-26] VITALS (7 sets, daily range): BP systolic 118–147; BP diastolic 58–73; PULSE 72–88; RESP 16–20; TEMP 36.4–37.7; O2SAT 95–98
--- NOTE | 2021-04-26 06:38 | PC.NURSE ---
Patient has CBI running. At approximately 0400 elam noted to be leaking. 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 Elam replaced with a 24F elam. Catheter is no longer leaking but doesn't drain at this time. Dr. Winchester notified and order placed for 5mg oxybuytinin.
[2021-04-26 07:23] LABS: Hematocrit 30.8 % (42.0-52.0); Mean Corpuscular HGB Conc 32.5 g/dl (31.0-36.0); Mean Corpuscular Hemoglobin 31.3 pg (27.0-33.0); Mean Corpuscular Volume 96.3 fL (80.0-98.0); Mean Platelet Volume 9.6 fL (9.4-12.4); Platelet Count 508 X10*3/uL (160-400); Red Cell Distribution Width 13.9 % (11.0-16.0); White Blood Count 17.4 X10*3/uL (4.8-10.8)
[2021-04-26 07:41] LABS: Anion Gap 16 (12-20); Blood Urea Nitrogen 36 mg/dL (9-16); Calcium 7.6 mg/dL (8.4-10.2); Carbon Dioxide 19 mmol/L (22-29); Chloride 110 mmol/L (96-108); Creatinine Clr Calc Pharmacy 37.3; Estimated Glomerular Filt Rate 41; Glucose Random 165 mg/dL (60-115); Potassium 4.9 mmol/L (3.3-5.1); Sodium 140 mmol/L (135-145)
[2021-04-26 07:46] LABS: Glucose, Whole Blood 146 mg/dL (60-115)
--- NOTE | 2021-04-26 08:49 | P.PNIM_ITS ---
Subjective Subjective Date of Service: 04/26/21 Review of Systems Follow up hematuria CBI with punch colored urine Feeling better Physical Exam Vital Signs: Vital Signs: Last Vital Signs Temp 99.7 F 04/26/21 07:22 Pulse 81 04/26/21 07:22 Resp 18 04/26/21 07:22 BP 147/71 H 04/26/21 07:22 Pulse Ox 97 04/26/21 07:22 BMI result Body Mass Index 27.8 Appearing in no acute distress lung sounds are clear to auscultation heart regular rate rhythm, clear S1, S2 positive bowel sounds, abdomen is soft, nontender neuro patient is alert x3, no focal deficits CBI with punch colored urine Objective Data Active Medications Acetaminophen (Acetaminophen 325 Mg Tablet) 650 mg PO Q6H PRN PRN Reason: Pain, Mild (Pain Scale 1-3) Last Admin: 04/25/21 21:15 Dose: 650 mg Documented by: RAFFAELE Apixaban (Apixaban 5 Mg Tablet) 5 mg PO BID [facility] Last Admin: 04/22/21 19:51 Dose: 5 mg Documented by: AARON Aspirin (Aspirin Enteric Coated 81 Mg Tablet.Dr) 81 mg PO DAILY [facility] Last Admin: 04/22/21 10:35 Dose: 81 mg Documented by: REAGAN Dextrose (Dextrose 50 % 25 Gm/50 Ml Syringe) 25 gm IVPUSH Q15M PRN; Protocol PRN Reason: per Hypoglycemia Standing Ord. Docusate Sodium (Docusate Sodium 100 Mg Capsule) 100 mg PO DAILY [facility] Last Admin: 04/25/21 07:57 Dose: 100 mg Documented by: DEMIAN Dorzolamide/Timolol (Dorzolamide/Timolo 2.23%/0.68% 10 Ml Drbtl) 1 drop EYE- BOTH DAILY [facility] Last Admin: 04/25/21 07:57 Dose: 1 drop Documented by: DEMIAN Glucose (Glucose Gel 15 Gm Gel..Gram.) 15 gm PO Q15M PRN; Protocol PRN Reason: per Hypoglycemia Standing Ord. Insulin Glargine (Insulin Glargine,Hum.Rec.Anlog 100 Unit/Ml 10 Ml Vial) 12 unit SUBCUT BEDTIME [facility] Last Admin: 04/25/21 21:16 Dose: 12 unit Documented by: RAFFAELE Insulin Human Lispro (Insulin Lispro 100 Unit/Ml 3 Ml Vial) 0 unit SUBCUT QIDACHS [facility]; Protocol Last Admin: 04/26/21 07:51 Dose: Not Given Documented by: DARION Non-Admin Reason: No Insulin Coverage Comments: POC 146 Latanoprost (Latanoprost 0.005 % Ophth Betina 2.5 Ml Drops) 1 drop EYE-BOTH BEDTIME [facility] Last Admin: 04/25/21 21:16 Dose: 1 drop Documented by: RAFFAELE Metoprolol Succinate (Metoprolol Succinate Er 25 Mg Tab.Er.24h) 25 mg PO DAILY [facility]; Protocol Last Admin: 04/25/21 07:57 Dose: 25 mg Documented by: DEMIAN Omeprazole (Omeprazole 20 Mg Capsule.Dr) 20 mg PO DAILY [facility] Last Admin: 04/25/21 07:57 Dose: 20 mg Documented by: DEMIAN Ondansetron HCl (Ondansetron Hcl 4 Mg/2 Ml Vial) 4 mg IVPUSH Q8H PRN PRN Reason: Nausea and Vomiting Last Admin: 04/20/21 23:33 Dose: 4 mg Documented by: FRANC Pharmacy Consult (Consult Rx Vancomycin Dosing) 1 each MISCELLANE DAILY PRN PRN Reason: Consult order Polyethylene Glycol (Polyethylene Glycol 3350 17 Gm Powd.Pack) 17 gm PO DAILY PRN PRN Reason: constipation Last Admin: 04/20/21 23:34 Dose: 17 gm Documented by: FRANC Sodium Chloride (0.9 % Sodium Chloride Flush 3 Ml Syringe) 3 ml IVFLUSH QSHIFT [facility] Last Admin: 04/25/21 21:16 Dose: 3 ml Documented by: RAFFAELE Labs CBC & Chem 7: 04/26/21 06:29 04/26/21 06:29 Labs: Laboratory Results - last 24 hr 04/13/21 04/14/21 04/15/21 22:04 06:35 06:21 MCV MCH MCHC RDW Plt Count MPV Absolute Nucleated RBC Nucleated RBC % (auto) Anion Gap Creatinine 3.99 H 3.45 H 3.14 H Estim Creat Clear Calc Estimated GFR POC Glucose Random Glucose Calcium 04/16/21 04/17/21 04/18/21 08:02 06:30 06:28 MCV MCH MCHC RDW Plt Count MPV Absolute Nucleated RBC Nucleated RBC % (auto) Anion Gap Creatinine 2.40 H 2.67 H 2.48 H Estim Creat Clear Calc Estimated GFR POC Glucose Random Glucose Calcium 04/19/21 04/20/21 04/21/21 06:10 05:50 06:35 MCV MCH MCHC RDW Plt Count MPV Absolute Nucleated RBC Nucleated RBC % (auto) Anion Gap Creatinine 2.43 H 2.67 H 2.62 H Estim Creat Clear Calc Estimated GFR POC Glucose Random Glucose Calcium 04/22/21 04/24/21 04/25/21 06:15 06:23 06:10 MCV MCH MCHC RDW Plt Count MPV Absolute Nucleated RBC Nucleated RBC % (auto) Anion Gap Creatinine 2.77 H 2.70 H 1.89 H Estim Creat Clear Calc Estimated GFR POC Glucose Random Glucose Calcium 04/25/21 04/25/21 04/25/21 11:19 16:44 20:08 MCV MCH MCHC RDW Plt Count MPV Absolute Nucleated RBC Nucleated RBC % (auto) Anion Gap Creatinine Estim Creat Clear Calc Estimated GFR POC Glucose 204 H 336 H 248 H Random Glucose Calcium 04/26/21 04/26/21 04/26/21 06:29 06:29 07:23 MCV 96.3 MCH 31.3 MCHC 32.5 RDW 13.9 Plt Count 508 H MPV 9.6 Absolute Nucleated RBC 0.000 Nucleated RBC % (auto) 0.0 Anion Gap 16 Creatinine 1.65 H Estim Creat Clear Calc 37.3 Estimated GFR 41 POC Glucose 146 H Random Glucose 165 H Calcium 7.6 L Assessment and Plan (1) Bacteremia: Status: Acute (2) PAF (paroxysmal atrial fibrillation): Status: Acute (3) UTI (urinary tract infection): Status: Acute Plan 75-year-old male with past medical history of hypertension, diabetes who presents to the hospital with complaints of chest pain found to have AFib with RVR as well as? YESSENIA Hematuria with clots continue CBI likely r/t TURBT ASA, Eliquis on hold follow CBC discuss with urology Bilateral hydronephrosis seen by urology s/p b/l stent placement 04/22 Asymmetric bladder wall thickening concerning over neoplastic process raised on CT scan repeat CT scan showing persistent hydroureteronephrosis with ?obstruction at bladder level from suspected neoplasm re-evaluated by urology s/p TURBT with fulguration 04/22 Normocytic Anemia acute blood loss anemia from hematuria on chonic normocytic anemia s/p 2 unit PRBC 04/23 with appropriate rise in H/H follow CBC GNR bacteremia secondary to UTI 04/08 BCx from 04/15 growing e.coli; repeat BCx from 04/16 negative to date urine growing e.coli, strep viridans Initially treated with zosyn seen by ID, changed to IV ceftriaxone 04/18 YESSENIA on CKD stage 4 Baseline SCr range 2 to 2.5, presented with 3.99, creatinine fluctuating improved with IV hydration, but there is a concern over post-renal issues contributing Urology re consulted for persistent hydronephrosis s/p b/l stent as above SOB. resolved echo from 04/14 showing LVEF 55-60%, diastolic function unable to be determined Cardiology consult pending IV lasix d/c due to borderline bp seems euvolemic at this time, saturating on room air hyperkalemia resolved s/p lokelma follow BMP New onset A Fib with RVR now in sinus on telemonitor Eliquis started this admission, echo done showing preserved EF Metoprolol started for rate control Seen by Cardiology -rec outpatient ischemic workup/cardiology follow up Eliquis currently on hold for hematuria HTN bp on the softer side metoprolol started by cardiology for afib rate control hold lisinopril follow BP closely Chest pain likely due to tachycardia ekg not suggestive of ACS resolved DM pioglitazone, jardiance on hold continue Lantus, SSI Full code DVT prophylaxis: Eliquis on hold, SCD boots Attending: Dr. Love Quality Stroke Does the patient have a stroke diagnosis?: No VTE Prior VTE?: No VTE Risk Level:: Medical - moderate - high VTE Device Contraindication: Treatment Not Indicated VTE Drug Contraindication: N/A - Med Ordered
[2021-04-26] MEDS: Metoprolol Succinate ER 25 MG TAB.ER.24H PO (10:06)
[2021-04-26] MEDS: Omeprazole 20 MG CAPSULE.DR PO (10:06)
[2021-04-26] MEDS: Docusate Sodium 100 MG CAPSULE PO (10:07)
[2021-04-26] MEDS: Dorzolamide/Timolo 2.23%/0.68% 10 ML DRBTL 1 DROP EYE-BOTH (10:07)
[2021-04-26] MEDS: 0.9 % Sodium Chloride Flush 3 ML SYRINGE IVFLUSH ×3 (10:07→20:34)
[2021-04-26 11:48] LABS: Glucose, Whole Blood 164 mg/dL (60-115)
[2021-04-26] MEDS: Insulin Lispro 100 UNIT/ML 3 ML VIAL SUBCUT ×3 (12:00→20:34)
[2021-04-26] MEDS: cefTRIAXone sodium 1 GM in 0.9 % Sodium Chloride 50 ML IV (15:33)
[2021-04-26 16:44] LABS: Glucose, Whole Blood 274 mg/dL (60-115)
--- NOTE | 2021-04-26 19:38 | PC.NURSE ---
CBI restarted at 0945 after noticed spontaneous urine flow through F/C. Urine now pink tinged, CBI flowing well. Patient denies pain. Tolerating small amounts of hospital food. Family brought in food from home. See MAR for insuin coverage in correlation to POCs. Meds as ordered.
[2021-04-26 20:18] LABS: Glucose, Whole Blood 309 mg/dL (60-115)
[2021-04-26] MEDS: Latanoprost 0.005 % Ophth Sol 2.5 ML DROPS 1 DROP EYE-BOTH (20:33)
[2021-04-26] MEDS: Insulin Glargine,Hum.rec.anlog 100 UNIT/ML 10 ML VIAL 12 UNIT SUBCUT (20:34)
[2021-04-26] MEDS: Acetaminophen 325 MG TABLET 650 MG PO (21:14)
[2021-04-27] VITALS (7 sets, daily range): BP systolic 124–161; BP diastolic 6–72; PULSE 77–86; RESP 16–20; TEMP 36.6–37.7; O2SAT 96–99
[2021-04-27 07:35] LABS: Glucose, Whole Blood 167 mg/dL (60-115)
[2021-04-27 07:36] LABS: Hematocrit 28.4 % (42.0-52.0); Hemoglobin 9.2 g/dl (14.0-18.0); Mean Corpuscular HGB Conc 32.4 g/dl (31.0-36.0); Mean Corpuscular Hemoglobin 31.3 pg (27.0-33.0); Mean Corpuscular Volume 96.6 fL (80.0-98.0); Mean Platelet Volume 9.5 fL (9.4-12.4); Platelet Count 474 X10*3/uL (160-400); Red Blood Count 2.94 X10*6/uL (4.60-5.80); Red Cell Distribution Width 13.7 % (11.0-16.0); White Blood Count 17.8 X10*3/uL (4.8-10.8)
[2021-04-27 07:50] LABS: Anion Gap 14 (12-20); Blood Urea Nitrogen 29 mg/dL (9-16); Calcium 7.6 mg/dL (8.4-10.2); Carbon Dioxide 22 mmol/L (22-29); Chloride 107 mmol/L (96-108); Creatinine Clr Calc Pharmacy 40.7; Estimated Glomerular Filt Rate 45; Glucose Random 176 mg/dL (60-115); Potassium 4.9 mmol/L (3.3-5.1); Sodium 138 mmol/L (135-145)
[2021-04-27] MEDS: Insulin Lispro 100 UNIT/ML 3 ML VIAL SUBCUT ×4 (08:49→20:34)
[2021-04-27] MEDS: Omeprazole 20 MG CAPSULE.DR PO (08:51)
[2021-04-27] MEDS: Docusate Sodium 100 MG CAPSULE PO (08:51)
[2021-04-27] MEDS: Metoprolol Succinate ER 25 MG TAB.ER.24H PO (08:51)
[2021-04-27] MEDS: 0.9 % Sodium Chloride Flush 3 ML SYRINGE IVFLUSH ×3 (08:51→20:35)
[2021-04-27] MEDS: Dorzolamide/Timolo 2.23%/0.68% 10 ML DRBTL 1 DROP EYE-BOTH (09:27)
--- NOTE | 2021-04-27 11:00 | P.PNIM_ITS ---
Subjective Subjective Date of Service: 04/28/21 Review of Systems Follow up hematuria CBI with punch colored urine Feeling better Physical Exam Vital Signs: Vital Signs: Last Vital Signs Temp 99.1 F 04/27/21 07:45 Pulse 79 04/27/21 07:45 Resp 18 04/27/21 07:45 BP 135/65 04/27/21 07:45 Pulse Ox 96 04/27/21 08:00 BMI result Body Mass Index 27.8 Appearing in no acute distress lung sounds are clear to auscultation heart regular rate rhythm, clear S1, S2 positive bowel sounds, abdomen is soft, nontender neuro patient is alert x3, no focal deficits Objective Data Active Medications Acetaminophen (Acetaminophen 325 Mg Tablet) 650 mg PO Q6H PRN PRN Reason: Pain, Mild (Pain Scale 1-3) Last Admin: 04/26/21 21:14 Dose: 650 mg Documented by: RAFFAELE Apixaban (Apixaban 5 Mg Tablet) 5 mg PO BID [facility] Last Admin: 04/22/21 19:51 Dose: 5 mg Documented by: AARON Aspirin (Aspirin Enteric Coated 81 Mg Tablet.Dr) 81 mg PO DAILY [facility] Last Admin: 04/22/21 10:35 Dose: 81 mg Documented by: REAGAN Dextrose (Dextrose 50 % 25 Gm/50 Ml Syringe) 25 gm IVPUSH Q15M PRN; Protocol PRN Reason: per Hypoglycemia Standing Ord. Docusate Sodium (Docusate Sodium 100 Mg Capsule) 100 mg PO DAILY [facility] Last Admin: 04/27/21 08:51 Dose: 100 mg Documented by: ANDREA Dorzolamide/Timolol (Dorzolamide/Timolo 2.23%/0.68% 10 Ml Drbtl) 1 drop EYE- BOTH DAILY [facility] Last Admin: 04/27/21 09:27 Dose: 1 drop Documented by: ADNREA Glucose (Glucose Gel 15 Gm Gel..Gram.) 15 gm PO Q15M PRN; Protocol PRN Reason: per Hypoglycemia Standing Ord. Ceftriaxone Sodium 1 gm/ (Sodium Chloride) 50 mls @ 100 mls/hr IV Q24H [facility] Last Infusion: 04/26/21 16:05 Dose: 0 mls/hr Documented by: DARION Insulin Glargine (Insulin Glargine,Hum.Rec.Anlog 100 Unit/Ml 10 Ml Vial) 12 unit SUBCUT BEDTIME [facility] Last Admin: 04/26/21 20:34 Dose: 12 unit Documented by: RAFFAELE Insulin Human Lispro (Insulin Lispro 100 Unit/Ml 3 Ml Vial) 0 unit SUBCUT QIDACHS [facility]; Protocol Last Admin: 04/27/21 08:49 Dose: 2 unit Documented by: ANDREA Latanoprost (Latanoprost 0.005 % Ophth Betina 2.5 Ml Drops) 1 drop EYE-BOTH BEDTIME [facility] Last Admin: 04/26/21 20:33 Dose: 1 drop Documented by: RAFFAELE Metoprolol Succinate (Metoprolol Succinate Er 25 Mg Tab.Er.24h) 25 mg PO DAILY [facility]; Protocol Last Admin: 04/27/21 08:51 Dose: 25 mg Documented by: ANDREA Omeprazole (Omeprazole 20 Mg Capsule.Dr) 20 mg PO DAILY [facility] Last Admin: 04/27/21 08:51 Dose: 20 mg Documented by: ANDREA Ondansetron HCl (Ondansetron Hcl 4 Mg/2 Ml Vial) 4 mg IVPUSH Q8H PRN PRN Reason: Nausea and Vomiting Last Admin: 04/20/21 23:33 Dose: 4 mg Documented by: FRANC Pharmacy Consult (Consult Rx Vancomycin Dosing) 1 each MISCELLANE DAILY PRN PRN Reason: Consult order Polyethylene Glycol (Polyethylene Glycol 3350 17 Gm Powd.Pack) 17 gm PO DAILY PRN PRN Reason: constipation Last Admin: 04/20/21 23:34 Dose: 17 gm Documented by: FRANC Sodium Chloride (0.9 % Sodium Chloride Flush 3 Ml Syringe) 3 ml IVFLUSH QSHIFT [facility] Last Admin: 04/27/21 08:51 Dose: 3 ml Documented by: ANDREA Labs CBC & Chem 7: 04/28/21 05:51 04/28/21 05:51 Labs: Laboratory Results - last 24 hr 04/26/21 04/26/21 04/26/21 11:42 16:16 19:51 MCV MCH MCHC RDW Plt Count MPV Absolute Nucleated RBC Nucleated RBC % (auto) Anion Gap Estim Creat Clear Calc Estimated GFR POC Glucose 164 H 274 H 309 H Random Glucose Calcium 04/27/21 04/27/2104/27/22 06:53 06:53 07:28 MCV 96.6 MCH 31.3 MCHC 32.4 RDW 13.7 Plt Count 474 H MPV 9.5 Absolute Nucleated RBC 0.000 Nucleated RBC % (auto) 0.0 Anion Gap 14 Estim Creat Clear Calc 40.7 Estimated GFR 45 POC Glucose 167 H Random Glucose 176 H Calcium 7.6 L Microbiology Microbiology Results: Microbiology 04/21/21 11:42 Blood Culture - Final Blood - Venous No growth after 5 days. 04/21/21 11:50 Blood Culture - Final Blood - Venous No growth after 5 days. Assessment and Plan (1) Bacteremia: Status: Acute (2) PAF (paroxysmal atrial fibrillation): Status: Acute (3) UTI (urinary tract infection): Status: Acute Plan 75-year-old male with past medical history of hypertension, diabetes who presents to the hospital with complaints of chest pain found to have AFib with RVR as well as? YESSENIA Hematuria with clots clamp CBI likely r/t TURBT ASA, Eliquis on hold CBC stable discuss with urology, rec one dose of tranexamic acid Bilateral hydronephrosis seen by urology s/p b/l stent placement 04/22 Asymmetric bladder wall thickening concerning over neoplastic process raised on CT scan repeat CT scan showing persistent hydroureteronephrosis with ?obstruction at bladder level from suspected neoplasm re-evaluated by urology s/p TURBT with fulguration 04/22 Normocytic Anemia acute blood loss anemia from hematuria on chonic normocytic anemia s/p 2 unit PRBC 04/23 with appropriate rise in H/H follow CBC GNR bacteremia secondary to UTI 04/08 BCx from 04/15 growing e.coli; repeat BCx from 04/16 negative to date urine growing e.coli, strep viridans Initially treated with zosyn seen by ID, changed to IV ceftriaxone 04/18 YESSENIA on CKD stage 4 Baseline SCr range 2 to 2.5, presented with 3.99, creatinine fluctuating improved with IV hydration, but there is a concern over post-renal issues contributing Urology re consulted for persistent hydronephrosis s/p b/l stent as above SOB. resolved echo from 04/14 showing LVEF 55-60%, diastolic function unable to be determined Cardiology consult pending IV lasix d/c due to borderline bp seems euvolemic at this time, saturating on room air hyperkalemia resolved s/p lokelma follow BMP New onset A Fib with RVR now in sinus on telemonitor Eliquis started this admission, echo done showing preserved EF Metoprolol started for rate control Seen by Cardiology -rec outpatient ischemic workup/cardiology follow up Eliquis currently on hold for hematuria HTN bp on the softer side metoprolol started by cardiology for afib rate control hold lisinopril follow BP closely Chest pain likely due to tachycardia ekg not suggestive of ACS resolved DM pioglitazone, jardiance on hold continue Lantus, SSI Full code DVT prophylaxis: Eliquis on hold, SCD boots Attending: Dr. Bonnie Armendariz Stroke Does the patient have a stroke diagnosis?: No VTE Prior VTE?: No VTE Risk Level:: Medical - moderate - high VTE Device Contraindication: Treatment Not Indicated VTE Drug Contraindication: N/A - Med Ordered
[2021-04-27 11:21] LABS: Glucose, Whole Blood 264 mg/dL (60-115)
[2021-04-27] MEDS: Tranexamic Acid 1,000 MG in 0.9 % Sodium Chloride 50 ML 360 MG IV (11:58)
[2021-04-27] MEDS: cefTRIAXone sodium 1 GM in 0.9 % Sodium Chloride 50 ML IV (16:17)
[2021-04-27 16:26] LABS: Glucose, Whole Blood 316 mg/dL (60-115)
--- NOTE | 2021-04-27 18:50 | PC.NURSE ---
1830 CBI clamped at 0900 per MD. draining bloody urine, no clots. denies pain.
[2021-04-27 20:13] LABS: Glucose, Whole Blood 245 mg/dL (60-115)
[2021-04-27] MEDS: Insulin Glargine,Hum.rec.anlog 100 UNIT/ML 10 ML VIAL 12 UNIT SUBCUT (20:34)
[2021-04-27] MEDS: Latanoprost 0.005 % Ophth Sol 2.5 ML DROPS 1 DROP EYE-BOTH (20:45)
[2021-04-27] MEDS: Acetaminophen 325 MG TABLET 650 MG PO (21:02)
[2021-04-28 03:57] VITALS: BP 152/72; PULSE 83; RESP 16; TEMP 37.1; O2SAT 97
[2021-04-28 06:26] LABS: Hematocrit 29.3 % (42.0-52.0); Hemoglobin 9.2 g/dl (14.0-18.0); Mean Corpuscular HGB Conc 31.4 g/dl (31.0-36.0); Mean Corpuscular Hemoglobin 30.4 pg (27.0-33.0); Mean Corpuscular Volume 96.7 fL (80.0-98.0); Mean Platelet Volume 9.5 fL (9.4-12.4); Platelet Count 432 X10*3/uL (160-400); Red Blood Count 3.03 X10*6/uL (4.60-5.80); Red Cell Distribution Width 13.5 % (11.0-16.0); White Blood Count 16.8 X10*3/uL (4.8-10.8)
[2021-04-28 06:57] LABS: Anion Gap 11 (12-20); Blood Urea Nitrogen 25 mg/dL (9-16); Calcium 7.8 mg/dL (8.4-10.2); Carbon Dioxide 25 mmol/L (22-29); Chloride 106 mmol/L (96-108); Creatinine Clr Calc Pharmacy 38.2; Estimated Glomerular Filt Rate 42; Glucose Random 171 mg/dL (60-115); Potassium 4.9 mmol/L (3.3-5.1); Sodium 137 mmol/L (135-145)
[2021-04-28 07:08] VITALS: BP 146/71; PULSE 82; RESP 18; TEMP 36.7; O2SAT 96
[2021-04-28 07:38] LABS: Glucose, Whole Blood 175 mg/dL (60-115)
[2021-04-28 07:44] VITALS: O2SAT 97
[2021-04-28] MEDS: Insulin Lispro 100 UNIT/ML 3 ML VIAL SUBCUT (08:10)
--- NOTE | 2021-04-28 08:50 | PM.DS ---
DS: Providers Provider Date of Service: 04/28/21 Date of admission: 04/14/21 01:31 Primary care physician: Charlene Delgado MD Consults: 04/14/21 05:53 Consult to Urology Routine Consulting Provider: Camden Winchester Reason for consultation: bladder wall thickening concerning for malignancy Has provider been notified: No 04/14/21 13:36 Consult to Cardiology Routine Consulting Provider: Maximiliano Mae Reason for consultation: afib rvr Has provider been notified: No 04/18/21 10:16 Consult to Infectious Diseases Routine Consulting Provider: Esetla Gomez Reason for consultation: bacteremia, uti; persistant fever Has provider been notified: No 04/19/21 11:47 Consult to Urology Routine Consulting Provider: David Chaudhari III Reason for consultation: persistant left hydro?partial obstruction from ?bladder mass Has provider been notified: No 04/21/21 08:21 Consult to Infectious Diseases Routine Consulting Provider: Estela Gomez Reason for consultation: persistant fever Has provider been notified: No 04/21/21 12:16 Consult to Cardiology Routine Consulting Provider: Dong Pepper Reason for consultation: ? CHF Has provider been notified: No Attending physician on discharge: Matt Nicole Discharging clinician: Tori Montalvo DS: Diagnosis Discharge Diagnosis (1) Hematuria: Status: Acute (2) Bacteremia: Status: Acute (3) UTI (urinary tract infection): Status: Acute (4) Hydronephrosis: Status: Acute (5) Bladder outlet obstruction: Status: Acute (6) YESSENIA (acute kidney injury): Status: Acute (7) Chronic renal failure, stage 4 (severe): Status: Acute DS: Summary Hospital Course Hospital Course: HP as per admitting provider this is a 75-year-old male Amharic-speaking only with history of diabetes, hypertension, hyperlipidemia presents to the hospital with complaints of chest pain.? Patient is a very vague historian, history is obtained with the help of an coat hanger shaper machine operator through the iPad so therefore was difficult to get accurate information from him.? According to him he has been having chest pain for 2 weeks, intermittent, localized to the mid sternal, 10/10, radiating to his throat, as well as his back.? He is also complaining of palpitations, denies any shortness of breath, no cough, denies any headache no change in vision, no abdominal pain nausea or vomiting, no diarrhea constipation, no urinary symptoms and no lower extremity edema. patient is not familiar with his past medical history and is also having difficulty with his medication list.? He does not know what medication he takes and what he takes some 4.?On arrival to the ED Patient found to have a heart rate of 108 in AFib with RVR, otherwise hemodynamically stable. Labs are significant for WBC count of 11.1, hemoglobin of 11.4, BUN of 105, creatinine of 3.99 with a baseline around 2.0-2.5, , glucose of 386,? BNP of 110, UA positive for blood .patient's abdominal pelvic CT showed appearance of the bladder concerning for asymmetric wall thickening along the left posterolateral margin raising suspicion for a mass.? Mild bilateral? hydroureteronephrosis with no obstructing calculus. Patient given 2 doses of IV Lopressor with improvement Hematuria with clots, treated with CBI, tranexamic acid one dose. Less hematuria but still present. CBI stopped. Plan is for patient to go home with elam catheter and follow up with urology in one week for removal in office. ASA, Eliquis remain on hold, CBC stable Bilateral hydronephrosis, s/p b/l stent placement 04/22 Asymmetric bladder wall thickening. concerning over neoplastic process raised on CT scan, repeat CT scan showing persistent hydroureteronephrosis with ?obstruction at bladder level from suspected neoplasm re-evaluated by urology s/p TURBT with fulguration 04/22. Bladder, biopsy on 04/22/21:? Inflamed urothelial mucosa with hemorrhage; no malignancy identified. Normocytic Anemia, acute blood loss anemia from hematuria on chonic normocytic anemia, s/p 2 unit PRBC 04/23 with appropriate rise in H/H GNR bacteremia secondary to UTI, 04/08 BCx from 04/15 growing e.coli; repeat BCx from 04/16 negative to date, urine growing e.coli, strep viridans Initially treated with zosyn seen by ID, changed to IV ceftriaxone 04/18, now home with 5 days of Levaquin YESSENIA on CKD stage 4 Baseline SCr range 2 to 2.5, presented with 3.99, creatinine fluctuating, improved with IV hydration, but there is a concern over post-renal issues contributing New onset A Fib with RVR, now in sinus on telemonitor, Eliquis started this admission, echo done showing preserved EF, Metoprolol started for rate control Seen by Cardiology -rec outpatient ischemic workup/cardiology follow up, Eliquis currently on hold for hematuria Time Spent with Patient Time attestation: Total time spent providing and/or coordinating discharge services: Discharge coordination time: Greater than 30 minutes Quality: Stroke Does the patient have a stroke diagnosis?: No Physical Exam Vital Signs: Vital Signs: Last Vital Signs Temp 98.1 F 04/28/21 07:08 Pulse 82 04/28/21 07:08 Resp 18 04/28/21 07:08 BP 146/71 H 04/28/21 07:08 Pulse Ox 97 04/28/21 07:44 BMI result Body Mass Index 27.8 Appearing in no acute distress head is normocephalic atraumatic eyes pupils are PERRLA sclera is anicteric mouth throat mucous membranes are intact and moist neck is supple no lymphadenopathy, no JVD noted lung sounds are clear to auscultation heart regular rate rhythm, clear S1, S2 positive bowel sounds, abdomen is soft, nontender neuro patient is alert x3, no focal deficits Elam catheter DS: Data Data Completed and Pending Completed studies during hospitalization [Text1]: Pending at discharge 04/22/21 08:14 Surgical [PTH] Routine Labs on day of discharge: Laboratory Results - last 24 hr 04/27/21 04/27/21 04/27/21 11:09 16:21 20:03 WBC RBC Hgb Hct MCV MCH MCHC RDW Plt Count MPV Absolute Nucleated RBC Nucleated RBC % (auto) Sodium Potassium Chloride Carbon Dioxide Anion Gap BUN Creatinine Estim Creat Clear Calc Estimated GFR POC Glucose 264 H 316 H 245 H Random Glucose Calcium 04/28/21 04/28/21 04/28/21 05:51 05:51 07:10 WBC 16.8 H RBC 3.03 L Hgb 9.2 L Hct 29.3 L MCV 96.7 MCH 30.4 MCHC 31.4 RDW 13.5 Plt Count 432 H MPV 9.5 Absolute Nucleated RBC 0.000 Nucleated RBC % (auto) 0.0 Sodium 137 Potassium 4.9 Chloride 106 Carbon Dioxide 25 Anion Gap 11 L BUN 25 H Creatinine 1.61 H Estim Creat Clear Calc 38.2 Estimated GFR 42 POC Glucose 175 H Random Glucose 171 H Calcium 7.8 L Discharge Plan Discharge Anticipated Discharge Date/Time: 04/28/21 08:34 Patient Disposition: Home Health Service Discharge Diagnosis: Hematuria Bilateral hydronephrosis Asymmetric bladder wall thickening GNR bacteremia Referrals: Camden Winchester MD [Physician] - 1 Week (elam catheter removal ) Charlene Delgado MD [Primary Care Provider] - 1 Week Discharge Medications: New levofloxacin 500 mg tablet 500 mg PO DAILY Qty: 5 0RF Continued latanoprost 0.005 % drops 1 drp ophthalmic (eye) BEDTIME 0RF pioglitazone 45 mg tablet 1 tab PO DAILY 0RF omeprazole 20 mg capsule,delayed release(DR/EC) 1 cap PO DAILY@0630 0RF furosemide 20 mg tablet 1 tab PO DAILY 0RF insulin aspart U-100 [Novolog Flexpen U-100 Insulin] 100 unit/mL (3 mL) insulin pen 2 - 15 unit subcut TIDAC 0RF atorvastatin 40 mg tablet 1 tab PO BEDTIME 0RF dorzolamide-timolol 22.3-6.8 mg/mL drops 1 drp ophthalmic (eye) DAILY 0RF lisinopril 40 mg tablet 1 tab PO DAILY 0RF fenofibrate 160 mg tablet 1 tab PO QAM 0RF Lantus Solostar U-100 Insulin 100 unit/mL (3 mL) insulin pen 12 unit subcut BEDTIME 0RF Jardiance 25 mg tablet 1 tab PO DAILY 0RF Discontinued aspirin 81 mg tablet,delayed release (DR/EC) 1 tab PO DAILY 0RF Discharge Orders: Discharge Order (Routine); Ordered 04/28/21 Ordered By: Tori Montalvo Diet: advance to usual diet Activity on Discharge: As tolerated Stand Alone Forms: Patient Portal Discharge page Care Plan Goals: Resolution of hematuria Health Concerns: Hematuria Bilateral hydronephrosis Asymmetric bladder wall thickening GNR bacteremia BLADDER BIOPSY: Inflamed urothelial mucosa with hemorrhage; no malignancy identified. Plan of Treatment: Follow up with Dr. Winchester for removal of elam catheter HOLD ASPIRIN AND ELIQUIS UNTIL SEEN BY UROLOGY TO DECIDE WHEN TO RESTART DUE TO HEMATURIA Assessment: See discharge summary Patient Instructions: Cystoscopy (GEN), Ureteral Stent Placement (GEN)
[2021-04-28] MEDS: Metoprolol Succinate ER 25 MG TAB.ER.24H PO (09:55)
[2021-04-28] MEDS: Docusate Sodium 100 MG CAPSULE PO (09:55)
[2021-04-28] MEDS: Omeprazole 20 MG CAPSULE.DR PO (09:55)
[2021-04-28] MEDS: 0.9 % Sodium Chloride Flush 3 ML SYRINGE IVFLUSH (09:55)
[2021-04-28] MEDS: Dorzolamide/Timolo 2.23%/0.68% 10 ML DRBTL 1 DROP EYE-BOTH (09:56)
[2021-04-28 10:56] VITALS: BP 148/70; PULSE 79; RESP 18; TEMP 36.9; O2SAT 97
--- NOTE | 2021-04-28 11:21 | MHC.CM.PN ---
pt dcd home with hvns ,they wwre notified of dc
[2021-04-28 11:23] LABS: Glucose, Whole Blood 280 mg/dL (60-115)
== END 2021-04-28 12:15 | disposition home health service (06) | DRG 660 ==
LOC: HO.ED 04-14 02:03 → HO.EDOVER 04-14 02:47 → HO.IMC 04-14 13:55
PROVIDERS: Family Medicine; Hospitalist; Nurse Practitioner Family; Physician Assistant Medical; Urology; Admitting Provider Internal Medicine; Emergency Provider Internal Medicine; PCP Internal Medicine; Visit Provider Nurse Practitioner Acute Care
PROC: 0TJB8ZZ Inspection of Bladder, Via Natural or Artificial Opening Endoscopic (ICD-10-PCS; CPT 52000; principal; 2021-04-22 07:30)
DX: N32.89 Other specified disorders of bladder (principal); N17.9 Acute kidney failure, unspecified; I13.0 Hypertensive heart and chronic kidney disease with heart failure and stage 1 through stage 4 chronic kidney disease, or unspecified chronic kidney disease; I50.32 Chronic diastolic (congestive) heart failure; R78.81 Bacteremia; D62 Acute posthemorrhagic anemia; N18.4 Chronic kidney disease, stage 4 (severe); N13.6 Pyonephrosis; B96.20 Unspecified Escherichia coli [E. coli] as the cause of diseases classified elsewhere; E87.5 Hyperkalemia; R00.0 Tachycardia, unspecified; R31.0 Gross hematuria; I48.0 Paroxysmal atrial fibrillation; I48.91 Unspecified atrial fibrillation; E11.22 Type 2 diabetes mellitus with diabetic chronic kidney disease; D63.1 Anemia in chronic kidney disease; Z20.822 Contact with and (suspected) exposure to COVID-19; Z79.4 Long term (current) use of insulin; Z79.899 Other long term (current) drug therapy
CPT/HCPCS: 36415; 71045; 74018; 74176; 80048; 80076; 80202; 81001; 81003; 82947; 83036; 83605; 83735; 83880; 84484; 85007; 85025; 85027; 86850; 86900; 86901; 86923; 87040; 87077; 87086; 87088; 87186; 87205; 87635; 88305; 93005; 93306; 96361; 96374; 96376; 99285; 99291; C1758; C1769; C2617; J0696; J1940; J1956; J2370; J2405; J2543; J3010; J3370; P9016; Q9957; Q9967

== ENCOUNTER 2021-04-29 05:33 | Emergency (ER) | payer MEDICARE, SELFPAY ==
[2021-04-29 05:41] VITALS: BP 144/55; PULSE 86; RESP 28; TEMP 36.9; O2SAT 96
[2021-04-29 05:47] VITALS: BMI 27.4
[2021-04-29 06:00] VITALS: BP 136/64; PULSE 81; RESP 18; TEMP 36.9; O2SAT 99
--- NOTE | 2021-04-29 06:08 | ED.MALEGU ---
HPI - Male Genitourinary General Chief complaint: Urogenital-Male Stated complaint: unable to urinate Time Seen by Provider: 04/29/21 05:55 Source: patient, family (Daughter) and gore stitcher Mode of arrival: EMS History of Present Illness HPI Narrative: 75-year-old male with recent discharge from the hospital at 14:00 yesterday, on review of documentation patient was discharged with hematuria and had been taken off of CBI. Patient underwent TURBT as well as bilateral ureteral stent placement during his stay. Patient has a [address] way [address] catheter in [address] and as per the daughter he woke up screaming and crying at approximately 03:00 complaining of penile pain. The daughter was concerned that the catheter was not draining. Patient denies any shortness of breath, chest pain/palpitations and denies any abdominal pain but states he is having penile pain. Related Data Home Medications Medication Instructions Recorded Confirmed furosemide 20 mg tablet 1 tab PO DAILY 01/03/20 04/14/21 insulin aspart U-100 100 unit/mL 2 - 15 unit SUBCUT TIDAC 01/03/20 04/14/21 (3 mL) subcutaneous pen (Novolog Flexpen U-100 Insulin aspart) latanoprost 0.005 % eye drops 1 drp OPHTHALMIC (EYE) BEDTIME 01/03/20 04/14/21 omeprazole 20 mg capsule,delayed 1 cap PO DAILY@0630 01/03/20 04/14/21 release pioglitazone 45 mg tablet 1 tab PO DAILY 01/03/20 04/14/21 atorvastatin 40 mg tablet 1 tab PO BEDTIME 04/14/21 04/14/21 dorzolamide 22.3 mg-timolol 6.8 1 drp OPHTHALMIC (EYE) DAILY 04/14/21 04/14/21 mg/mL eye drops empagliflozin 25 mg tablet 1 tab PO DAILY 04/14/21 04/14/21 (Jardiance) fenofibrate 160 mg tablet 1 tab PO QAM 04/14/21 04/14/21 insulin glargine 100 unit/mL (3 12 unit SUBCUT BEDTIME 04/14/21 04/14/21 mL) subcutaneous pen (Lantus Solostar U-100 Insulin) lisinopril 40 mg tablet 1 tab PO DAILY 04/14/21 04/14/21 Previous Rx's Medication Instructions Recorded levofloxacin 500 mg tablet 500 mg PO DAILY #5 tab 04/28/21 oxybutynin chloride 10 mg 5 mg PO DAILY #3 tab 04/29/21 tablet,extended release 24 hr Allergies Allergy/AdvReac Type Severity Reaction Status Date / Time No Known Allergies Allergy Mild NONE Verified 04/13/21 18:49 Review of Systems Review of Systems: Pertinent positives and negatives as stated in HPI 10 point review of systems is otherwise negative. [facility] Past Medical History Source: nursing notes reviewed Medical History Diabetes 1.5, managed as type 2 High cholesterol Hypertension Surgical History No pertinent past surgical history Family History Family History Other No family history of coronary artery disease Social History Social History Household Members: Children Housing: House Do you presently have visiting nurse or other home services: No Alcohol intake: never Patient Tobacco Use Status: Former Tobacco user Advance Directives: No Advance Directives Information Provided: No service: No Physical Exam Vital Signs: Vital Signs: Last Vital Signs Temp 98.5 F 04/29/21 06:00 Pulse 81 04/29/21 06:00 Resp 18 04/29/21 06:00 BP 136/64 04/29/21 06:00 Pulse Ox 99 04/29/21 06:00 BMI result Body Mass Index 27.4 VITAL SIGNS: Reviewed. GENERAL: Well developed, well nourished, moderate distress. HEAD: Normocephalic/atraumatic EYES: PERRLA, EOMI LUNGS: Normal breath sounds with tachypnea. No adventitious sounds or accessory muscle use. SpO2<99> CARDIOVASCULAR: Regular rate and rhythm without noted murmurs, no JVD or lower extremity edema. ABDOMEN: Soft, non-tender, non-distended with bowel sounds. : Penis is noted to have some soft tissue swelling but able to fully retract foreskin without difficulty and no noted swelling to the scrotum. Walsh catheter is in place with Kaylynn color urine and drain neck approximately 600 cc. Bladder scan-27 cc MUSCULOSKELETAL: No tenderness, deformities, or effusions noted on gross inspection. EXTREMITIES: No cyanosis, clubbing or edema. SKIN: Inspection of the skin reveals no rashes NEUROLOGIC: Alert and oriented x 4. Strength and sensation to light touch were grossly intact x 4. Course Course Course Narrative: 75-year-old male with history and clinical presentation most consistent with bladder spasm, Walsh catheter appears to be draining well and in good position. Will obtain basic labs and patient was provided with pain medication as well as oxybutynin for bladder spasm. Patient signed out to Dr. Jean. Discharge Plan Discharge Clinical Impression: Painful bladder spasm, Hematuria, Walsh catheter present Patient Disposition: Still a Patient Instructions: Walsh Catheter Placement and Care (ED), Hematuria (ED) Additional Instructions: 1. Mantenga villalba kit con el Dr. Winchester y reanude todos los medicamentos en el hogar seg?n lo prescrito. 2. Se le pritchett proporcionado un medicamento para controlar los espasmos de la vejiga que pueda experimentar. Regrese a la susannah de emergencias si los s?ntomas empeoran. Prescriptions: New oxybutynin chloride 10 mg tablet extended release 24hr 5 mg PO DAILY Qty: 3 0RF No Action latanoprost 0.005 % drops 1 drp ophthalmic (eye) BEDTIME 0RF pioglitazone 45 mg tablet 1 tab PO DAILY 0RF omeprazole 20 mg capsule,delayed release(DR/EC) 1 cap PO DAILY@0630 0RF furosemide 20 mg tablet 1 tab PO DAILY 0RF insulin aspart U-100 [Novolog Flexpen U-100 Insulin] 100 unit/mL (3 mL) insulin pen 2 - 15 unit subcut TIDAC 0RF atorvastatin 40 mg tablet 1 tab PO BEDTIME 0RF dorzolamide-timolol 22.3-6.8 mg/mL drops 1 drp ophthalmic (eye) DAILY 0RF lisinopril 40 mg tablet 1 tab PO DAILY 0RF fenofibrate 160 mg tablet 1 tab PO QAM 0RF Lantus Solostar U-100 Insulin 100 unit/mL (3 mL) insulin pen 12 unit subcut BEDTIME 0RF Jardiance 25 mg tablet 1 tab PO DAILY 0RF levofloxacin 500 mg tablet 500 mg PO DAILY Qty: 5 0RF Referrals: Charlene Delgado MD [Primary Care Provider] - 2 days Camden Winchester MD [Physician] - 2 days Print Language: Yoruba
[2021-04-29] MEDS: oxyCODONE HCl Immed Release 5 MG TABLET PO (06:20)
[2021-04-29] MEDS: fentaNYL citrate/PF 100 MCG/2 ML VIAL 25 MCG IVPUSH ×2 (06:39→13:52)
[2021-04-29 06:47] LABS: Basophils Absolute Auto 0.1 X10*3/uL (0.0-0.2); Basophils Percent Auto 0.3 % (0-2); Eosinophils Absolute Auto 0.1 X10*3/uL (0.0-0.4); Eosinophils Percent Auto 0.4 % (0-4); Hematocrit 30.1 % (42.0-52.0); Hemoglobin 9.8 g/dl (14.0-18.0); Imm Gran Abs Auto 0.65 X10*3/uL (0.00-0.03); Imm Gran Pct Auto 3.5 % (0.0-0.4); Lymphocytes Absolute Auto 1.1 X10*3/uL (1.2-4.9); Lymphocytes Percent Auto 5.9 % (20-40); MANUAL DIFF FLAG NO; Mean Corpuscular HGB Conc 32.6 g/dl (31.0-36.0); Mean Corpuscular Hemoglobin 30.7 pg (27.0-33.0); Mean Corpuscular Volume 94.4 fL (80.0-98.0); Mean Platelet Volume 9.1 fL (9.4-12.4); Monocytes Absolute Auto 1.3 X10*3/uL (0.1-1.2); Monocytes Percent Auto 7.1 % (2-11); Neutrophils Absolute Auto 15.2 x10*3/uL (2.0-8.3); Neutrophils Percent Auto 82.8 % (45-73); Platelet Count 432 X10*3/uL (160-400); Red Blood Count 3.19 X10*6/uL (4.60-5.80); Red Cell Distribution Width 13.3 % (11.0-16.0); White Blood Count 18.3 X10*3/uL (4.8-10.8)
--- NOTE | 2021-04-29 07:26 | PC.NURSE ---
Pt received from night assistant: Pt AOX4 and offers no complaints at this time. Pt denies any pain and is was awoken from sleep to answer any questions. Heart sounds normal and lungs clear. Pt abd soft and non-tender. Pt denies any dysuria s/sx.
[2021-04-29 07:48] LABS: Anion Gap 14 (12-20); Blood Urea Nitrogen 25 mg/dL (9-16); Calcium 8.1 mg/dL (8.4-10.2); Carbon Dioxide 22 mmol/L (22-29); Chloride 105 mmol/L (96-108); Creatinine Clr Calc Pharmacy 43.1; Estimated Glomerular Filt Rate 45; Glucose Random 194 mg/dL (60-115); Potassium 4.7 mmol/L (3.3-5.1); Sodium 136 mmol/L (135-145)
--- NOTE | 2021-04-29 09:52 | MHC.CM.ED ---
Received case management consult from Dr Jean. Patient was discharged home from [facility] on 04/28 with [facility]. Patient returned to the ER due to urinary retention. Patient will be discharged home with a elam. Patient's daughter requested case management consult. Met with patient and daughter, Carmen with the assistant project manager. Patient lives with Carmen, uses a walker/cane for mobility, receives 16 hours of AUGER OPERATOR hours and was supposed to start with [facility] today. However, came to the ER. Patient received Moderna vaccines on 06/03 and 07/01. PCP verified. Copy of HCP obtained from Carmen and placed in chart. List of facilities offered from [facility]. However, Carmen lives next door to [facility] and requesting referral there. Anticipate patient will go to rehab under [facility] care. Patient will need a physical therapy eval and Covid swab. Both have been ordered by Dr Jean and are pending. Continue to monitor for d/c needs.
[2021-04-29 10:07] VITALS: BP 136/64; PULSE 81; O2SAT 99
[2021-04-29 10:43] LABS: Influenza A PCR NEGATIVE (Negative); Influenza B PCR NEGATIVE (Negative); Resp Syncy Virus RNA Qual PCR NEGATIVE (Negative); SARS COV2 PCR INHOUSE NEGATIVE (Negative)
--- NOTE | 2021-04-29 11:03 | MHC.CM.ED ---
[facility] is able to offer a bed pending insurance auth. [facility] is in the process of obtaining ins auth. Covid swab is negative. Continue to monitor for d/c needs.
[2021-04-29 13:51] VITALS: BP 127/69; PULSE 85; RESP 20; O2SAT 97
--- NOTE | 2021-04-29 13:59 | MHC.CM.ED ---
Ins auth has been obtained by Malou Mcarthur. Patient can leave at 4pm. [facility] booked. [facility] with chart. Patient, daughter Tracey Dunn RN and Dr Jean aware. Dorothy ESTRADA also made aware. Continue to monitor for d/c needs.
[2021-04-29 15:18] VITALS: BP 151/73; PULSE 89; RESP 16; TEMP 36.8; O2SAT 98
--- NOTE | 2021-04-29 16:52 | PC.NURSE ---
EMS at bedside for transport to [facility] for assisted rehab. Authorization process by case management
== END 2021-04-29 17:14 | disposition skilled nursing facility (03) ==
PROVIDERS: Emergency Provider Emergency Medicine; PCP Internal Medicine
DX: N32.89 Other specified disorders of bladder (principal); R31.9 Hematuria, unspecified; E13.22 Other specified diabetes mellitus with diabetic chronic kidney disease; I12.9 Hypertensive chronic kidney disease with stage 1 through stage 4 chronic kidney disease, or unspecified chronic kidney disease; N18.4 Chronic kidney disease, stage 4 (severe); E78.5 Hyperlipidemia, unspecified; I48.0 Paroxysmal atrial fibrillation; Z96.0 Presence of urogenital implants; Z79.4 Long term (current) use of insulin; Z79.02 Long term (current) use of antithrombotics/antiplatelets
CPT/HCPCS: 0241U; 36415; 80048; 85025; 96374; 96376; 97162; 99284; 99285; J3010

== ENCOUNTER 2021-05-03 01:24 | Emergency (ER) | payer MEDICARE, SELFPAY ==
[2021-05-03] VITALS (22 sets, daily range): BP systolic 92–146; BP diastolic 60–86; PULSE 97–128; RESP 16–35; TEMP 37–38.1; O2SAT 82–100; BMI 29.8
--- NOTE | 2021-05-03 | ECG_ITS ---
Test Reason : REPEAT Blood Pressure : / mmHG Vent. Rate : 108 BPM Atrial Rate : 108 BPM P-R Int : 122 ms QRS Dur : 090 ms QT Int : 338 ms P-R-T Axes : 046 002 126 degrees QTc Int : 452 ms Sinus tachycardia with Premature atrial complexes Cannot rule out Anterior infarct (cited on or before 03-MAY-2021) ST elevation inferior lead- III Abnormal ECG When compared with ECG of 03-MAY-2021 04:29, No significant change was found Referred By: Gaye Sebastian Electronically Signed By:LUZ RAYMOND
--- NOTE | 2021-05-03 | ECG_ITS ---
Test Reason : REPEAT Blood Pressure : / mmHG Vent. Rate : 110 BPM Atrial Rate : 110 BPM P-R Int : 120 ms QRS Dur : 092 ms QT Int : 338 ms P-R-T Axes : 048 007 137 degrees QTc Int : 457 ms Sinus tachycardia Possible Anterior infarct (cited on or before 03-MAY-2021) Inferior injury pattern ACUTE ME / STEMI Consider right ventricular involvement in acute inferior infarct Abnormal ECG When compared with ECG of 03-MAY-2021 03:35, significant changes noted. Referred By: Gaye Sebastian Electronically Signed By:LUZ RAYMOND
--- NOTE | ~2021-05-03 | XR_ITS ---
EXAMINATION: XR CHEST CLINICAL INFORMATION: Shortness of breath. COMPARISON: 04/21/2021 TECHNIQUE: Frontal view of the chest was obtained. FINDINGS: Cardiac leads overlie the chest. Lung volumes are low. Diffuse bilateral airspace opacities are present, increased from previous. No pleural effusion or pneumothorax. The cardiomediastinal silhouette is within normal limits. XR/XR chest 1V IMPRESSION: Diffuse bilateral airspace opacities are increased from prior. This could be infectious or inflammatory. Edema also possible.
--- NOTE | ~2021-05-03 | CT_ITS ---
EXAMINATION: CT ABDOMEN AND PELVIS WITHOUT CONTRAST CLINICAL INFORMATION: Pain and distention. COMPARISON: 04/18/2021. Fluoroscopic imaging 04/22/2021. TECHNIQUE: Multidetector volumetric imaging was performed from the superior aspect of the liver through the pubic symphysis. Sagittal and coronal reformatted images were obtained on the technologist's workstation. This CT examination was performed using dose optimization techniques as appropriate, variously including the following: *Automated exposure control *Adjustment of mA and/or kV according to patient size (this includes techniques or standardized protocols for targeted exams where dose is matched to indication/reason for exam; i.e. extremities or head) *Use of iterative reconstruction technique DLP: 728 mGy-cm FINDINGS: LUNG BASES: Small to moderate right pleural effusion. Associated right basilar atelectasis. LIVER, GALLBLADDER, AND BILIARY TREE: The liver is normal in size, shape, and attenuation. No focal hepatic lesion or biliary ductal dilatation is present. The gallbladder is unremarkable with no evidence of radiopaque gallstones, gallbladder wall thickening, or obvious pericholecystic inflammatory changes. PANCREAS: Mild atrophy with no focal abnormality. SPLEEN: Unremarkable. ADRENAL GLANDS: The left adrenal gland is unremarkable. Unchanged 1.8 cm right adrenal gland lesion. KIDNEYS AND URETERS: The kidneys are normal in size, shape, and attenuation. No hydronephrosis. Small right upper pole renal calculi again noted. These measure up to 0.2 cm.. Bilateral ureteral stents are in place. Mild hydroureter bilaterally. Symmetric perinephric stranding. BLADDER: Ureteral stents terminating in the bladder. Catheter in place within the bladder lumen. The bladder is distended without wall thickening. Gas within the bladder associated with the catheterization. GASTROINTESTINAL TRACT: The small and large bowel are unremarkable. The appendix is unremarkable. ABDOMINAL WALL: Small fat-containing umbilical hernia. Mild anasarca. LYMPH NODES: Normal. VASCULAR: Normal caliber aorta with mild atherosclerotic calcification. PELVIC VISCERA: The prostate and seminal vesicles are unremarkable. OSSEOUS STRUCTURES: No acute or suspicious osseous abnormality. Mild degenerative changes of the spine. CT/CT abdomen pelvis wo con IMPRESSION: Distended bladder without wall thickening. Ureteral stents in place in appropriate position. Mild bilateral hydroureter. Catheter in the pelvis. Small to moderate right-sided pleural effusion with associated basilar atelectasis. Fleischner guidelines were followed.
--- NOTE | 2021-05-03 01:48 | ED.MALEGU ---
HPI - Male Genitourinary General Chief complaint: Urogenital-Male Stated complaint: pain and swelling due to catheter Time Seen by Provider: 05/03/21 01:32 Source: patient, family and EMS Mode of arrival: EMS Limitations: no limitations History of Present Illness HPI Narrative: Patient comes to the emergency room via EMS from [facility]. The initial complaint is that the Walsh catheter is not draining. The daughter who is at bedside reports that earlier today the patient had a fever. Patient states that since the patient has been discharged from the hospital, he has been spiking fevers daily. Patient complaining of suprapubic abdominal pain and distension. Of note, patient has history of TURBT, on 04/22/2021. Patient had persistent elevated creatinine and hydronephrosis. Patient was discharged home on April 28. Patient returned hours later after being discharged complaining of penile pain, Walsh catheter blockage. However, the Walsh was draining properly, patient was diagnosed with bladder spasms and was diagnosed with oxybutinin. Related Data Home Medications Medication Instructions Recorded Confirmed furosemide 20 mg tablet 1 tab PO DAILY 01/03/20 04/14/21 insulin aspart U-100 100 unit/mL 2 - 15 unit SUBCUT TIDAC 01/03/20 04/14/21 (3 mL) subcutaneous pen (Novolog Flexpen U-100 Insulin aspart) latanoprost 0.005 % eye drops 1 drp OPHTHALMIC (EYE) BEDTIME 01/03/20 04/14/21 omeprazole 20 mg capsule,delayed 1 cap PO DAILY@0630 01/03/20 04/14/21 release pioglitazone 45 mg tablet 1 tab PO DAILY 01/03/20 04/14/21 atorvastatin 40 mg tablet 1 tab PO BEDTIME 04/14/21 04/14/21 dorzolamide 22.3 mg-timolol 6.8 1 drp OPHTHALMIC (EYE) DAILY 04/14/21 04/14/21 mg/mL eye drops empagliflozin 25 mg tablet 1 tab PO DAILY 04/14/21 04/14/21 (Jardiance) fenofibrate 160 mg tablet 1 tab PO QAM 04/14/21 04/14/21 insulin glargine 100 unit/mL (3 12 unit SUBCUT BEDTIME 04/14/21 04/14/21 mL) subcutaneous pen (Lantus Solostar U-100 Insulin) lisinopril 40 mg tablet 1 tab PO DAILY 04/14/21 04/14/21 Previous Rx's Medication Instructions Recorded levofloxacin 500 mg tablet 500 mg PO DAILY #5 tab 04/28/21 oxybutynin chloride 10 mg 5 mg PO DAILY #3 tab 04/29/21 tablet,extended release 24 hr Allergies Allergy/AdvReac Type Severity Reaction Status Date / Time No Known Allergies Allergy Mild NONE Verified 04/13/21 18:49 Review of Systems Review of Systems: Constitutional : No Weight loss, complaining of daily fever ENT/Mouth : No Hearing loss, No Ear Pain, No Nasal Congestion, No Sinus Pain, No Hoarseness, No sore throat, No Rhinorrhea, No Swallowing Difficulty Eyes: No Eye Pain, No Swelling, No Redness, No Foreign Body, No Discharge, No Vision Changes Cardiovascular : No Chest Pain, No SOB, No Dyspnea on Exertion, No Orthopnea, No Edema, No Palpitations Respiratory : No Cough, No Sputum, No Wheezing, No Smoke Exposure, No Dyspnea Gastrointestinal : No Nausea, No Vomiting, No Diarrhea, No Constipation, complaining of suprapubic and bilateral lower quadrant pain and distension, No Hematochezia, No Melena Genitourinary : Complaining of discomfort from the Walsh catheter, concerned that the Walsh catheter might be clogged Musculoskeletal : No joint pain, No Myalgias, No Joint Swelling Skin : No Skin Lesions, No rash Neuro : No Weakness, No Numbness, No Paresthesias, No Loss of Consciousness, No Dizziness, No Headache Psych : No Anxiety/Panic, No Depression, No SI/HI/AH/VH, No Social Issues, Heme/Lymph: No Bruising, No Bleeding,No Lymphadenopathy Endocrine : No Polyuria, No Polydipsia, No Temperature Intolerance [facility] Past Medical History Medical History Diabetes 1.5, managed as type 2 High cholesterol Hypertension Surgical History No pertinent past surgical history Family History Family History Other No family history of coronary artery disease Social History Social History Household Members: Children Housing: House Do you presently have visiting nurse or other home services: No Alcohol intake: never Patient Tobacco Use Status: Former Tobacco user Advance Directives: No service: No Physical Exam Vital Signs: Vital Signs: Last Vital Signs Temp 100.5 F H 05/03/21 01:45 Pulse 104 H 05/03/21 06:07 Resp 24 H 05/03/21 06:07 BP 124/66 05/03/21 06:07 Pulse Ox 100 05/03/21 06:07 BMI result Body Mass Index 29.8 Const: Other: Appearance: Alert. Patient seems very uncomfortable Eyes: Pupils equal, round and reactive to light. ENT: Pharynx normal. Neck: Normal inspection. Neck supple. No lymph nodes noted. No crepitus CVS: Normal heart rate and rhythm. Pulses normal. Normal S1 and S2 Respiratory: No respiratory distress. Breath sounds normal. No Wheezing. No rales Abdomen: Soft , lower abdomen is distended, tender to palpation. Bladder scan shows 59 mL of urine in the bladder, scan repeated several times showing consistent results : Walsh catheter in place, penis is not erythematous or swollen, no testicular pain, small amount of purulent looking urine in the urine bag Skin: Skin warm and dry. Normal skin color. Normal skin turgor. Extremities: No lower extremity edema. Neuro: Oriented X 3. No motor deficit. No sensory deficit. Moving all extermities. No slurred speech. Course Course Course Narrative: Oral temperature was 98.6. However, on physical exam patient seem warmer. Rectal temperature show the rectal temp of 100.5 degrees F. It is likely that the source of infection is UTI. At this time, 01:56, sepsis is not suspected. Patient is being treated with empiric antibiotics, ceftriaxone, and fluid being given based on an ideal weight of 55 kg (2L), patient is still obese. All of the labs imaging pending CT scan does not show any acute abnormalities. It seems that the urine is leaking around the Walsh catheter. We have been unable to obtain any urine for urinalysis, however it is likely that the patient does have a UTI. Patient has already been treated. Patient also has acute kidney injury. I discussed the patient with Dr. Mendez, patient has been admitted I was informed by our armorer technician that the patient's oxygen saturation is 80% in room air. Patient having difficulty breathing. On asucultation, pt has crackels. Patient was started on BiPAP. Patient likely developed pulmonary edema secondary to giving him 2 L of normal saline, patient has undiagnosed CHF until now BNP 517 03:35 Patient states that he has chest pain, EKG and troponin pending, given full dose aspirin -EKG shows ST segment depressions in the lateral leads. This is new from EKG from April 152021 This looks like an NSTEMI, patient being treated with heparin bolus and heparin drip 2nd EKG looks suspicios for STEMI but not clear. Patient complaing of severe chest pain and pressure. Heparin bolus, drip and Brilinta have been ordered. The cardiac catheterization was paged, however they are currently in an intervention and call back may be delayed. I sent the EKGs to Dr. Gandhi, at this time, patient seems to be having an NSTEMI with unstable angina rather than a STEMI. Dr. Gandhi recommends to transfer the patient to the CCU at [facility]. Checking on the pt , now breathing comfortably, still on Bipap, patient says the pain subsided I discussed the patient with Dr. Trevin Soria, who recommends to run the case by Interventional Cardiology. I discussed the patient with Dr. Moore, at this time, since patient is asymptomatic and stable, patient will be going to the CCU. Not STEMI, Patient will be transferred to [facility] 05:49 patient is stable, asymptomatic, we will start weaning patient off of BiPAP. Of note, patient was asked to stop taking aspirin and Eliquis on April 28 due to hematuria, anemia. Recommendations were to stop taking it until his next appointment with Urology which has not happened yet. Due to the urgency of STEMI, possibly STEMI, the patient was given heparin bolus, heparin drip, Brilinta and full dose aspirin. Patient will likely have hematuria again. But the chest pain resolved. I discussed the plan with the patient and his daughter who is the data analytics analyst, both agree with the plan. MDM - Male Genitourinary Lab Data Result diagrams: 05/03/21 02:21 05/03/21 02:23 Labs: Lab Results 05/03/21 05/03/21 05/03/21 Range/Units 02:21 02: 02:21 WBC 19.7 H (4.8-10.8) X10*3/uL RBC 2.82 L (4.60-5.80) X10*6/uL Hgb 8.7 L (14.0-18.0) g/dl Hct 26.8 L (42.0-52.0) % MCV 95.0 (80.0-98.0) fL MCH 30.9 (27.0-33.0) pg MCHC 32.5 (31.0-36.0) g/dl RDW 13.2 (11.0-16.0) % Plt Count 379 (160-400) X10*3/uL MPV 9.5 (9.4-12.4) fL Immature Gran % (Auto) 1.0 H (0.0-0.4) % Neut % (Auto) 82.7 H (45-73) % Lymph % (Auto) 7.0 L (20-40) % Vernon % (Auto) 8.4 (2-11) % Eos % (Auto) 0.6 (0-4) % Baso % (Auto) 0.3 (0-2) % Lymph # (Auto) 1.4 (1.2-4.9) X10*3/uL Vernon # (Auto) 1.7 H (0.1-1.2) X10*3/uL Eos # (Auto) 0.1 (0.0-0.4) X10*3/uL Baso # (Auto) 0.1 (0.0-0.2) X10*3/uL Abs Immat Gran (auto) 0.20 H (0.00-0.03) X10*3/uL Absolute Neuts (auto) 16.3 H (2.0-8.3) x10*3/uL Absolute Nucleated RBC 0.000 (0.0-0.012) X10*3/uL Nucleated RBC % (auto) 0.0 (0.0-0.2) /100WBC Smear Tech's Comments VERIFIED PT 14.5 H (9.9-13.0) SEC INR 1.3 H (0.9-1.1) Sodium (135-145) mmol/L Potassium (3.3-5.1) mmol/L Chloride (96-108) mmol/L Carbon Dioxide (22-29) mmol/L Anion Gap (12-20) BUN (9-16) mg/dL Creatinine (0.5-1.4) mg/dL Estim Creat Clear Calc Estimated GFR POC Glucose (60-115) mg/dL Random Glucose (60-115) mg/dL Lactic Acid 1.5 (0.5-2.0) mmol/L Calcium (8.4-10.2) mg/dL Total Bilirubin (0.0-1.0) mg/dL Direct Bilirubin (0.0-0.5) mg/dL AST (5-37) U/L ALT (0-40) U/L Alkaline Phosphatase (39-117) U/L Troponin I High Sens (<3.5-35.0) ng/L B-Natriuretic Peptide (<100) pg/mL Total Protein (6.5-8.0) g/dL Albumin (3.5-5.0) g/dL COVID-19 (GENE) (Negative) COVID-19 Clin Com 05/03/21 05/03/21 05/03/21 Range/Units 02:21 02:23 02:26 WBC (4.8-10.8) X10*3/uL RBC (4.60-5.80) X10*6/uL Hgb (14.0-18.0) g/dl Hct (42.0-52.0) % MCV (80.0-98.0) fL MCH (27.0-33.0) pg MCHC (31.0-36.0) g/dl RDW (11.0-16.0) % Plt Count (160-400) X10*3/uL MPV (9.4-12.4) fL Immature Gran % (Auto) (0.0-0.4) % Neut % (Auto) (45-73) % Lymph % (Auto) (20-40) % Vernon % (Auto) (2-11) % Eos % (Auto) (0-4) % Baso % (Auto) (0-2) % Lymph # (Auto) (1.2-4.9) X10*3/uL Vernon # (Auto) (0.1-1.2) X10*3/uL Eos # (Auto) (0.0-0.4) X10*3/uL Baso # (Auto) (0.0-0.2) X10*3/uL Abs Immat Gran (auto) (0.00-0.03) X10*3/uL Absolute Neuts (auto) (2.0-8.3) x10*3/uL Absolute Nucleated RBC (0.0-0.012) X10*3/uL Nucleated RBC % (auto) (0.0-0.2) /100WBC Smear Tech's Comments PT (9.9-13.0) SEC INR (0.9-1.1) Sodium 134 L (135-145) mmol/L Potassium 4.4 (3.3-5.1) mmol/L Chloride 101 (96-108) mmol/L Carbon Dioxide 22 (22-29) mmol/L Anion Gap 15 (12-20) BUN 29 H (9-16) mg/dL Creatinine 2.22 H (0.5-1.4) mg/dL Estim Creat Clear Calc 25.7 Estimated GFR 29 POC Glucose (60-115) mg/dL Random Glucose 261 H (60-115) mg/dL Lactic Acid (0.5-2.0) mmol/L Calcium 8.1 L (8.4-10.2) mg/dL Total Bilirubin 0.7 (0.0-1.0) mg/dL Direct Bilirubin 0.4 (0.0-0.5) mg/dL AST 123 H (5-37) U/L ALT 77 H (0-40) U/L Alkaline Phosphatase 287 H D (39-117) U/L Troponin I High Sens 29.6 D (<3.5-35.0) ng/L B-Natriuretic Peptide 517 H (<100) pg/mL Total Protein 6.2 L (6.5-8.0) g/dL Albumin 2.6 L (3.5-5.0) g/dL COVID-19 (GENE) Negative (Negative) COVID-19 Clin Com See Note 05/03/21 05/03/21 Range/Units 04:19 04:30 WBC (4.8-10.8) X10*3/uL RBC (4.60-5.80) X10*6/uL Hgb (14.0-18.0) g/dl Hct (42.0-52.0) % MCV (80.0-98.0) fL MCH (27.0-33.0) pg MCHC (31.0-36.0) g/dl RDW (11.0-16.0) % Plt Count (160-400) X10*3/uL MPV (9.4-12.4) fL Immature Gran % (Auto) (0.0-0.4) % Neut % (Auto) (45-73) % Lymph % (Auto) (20-40) % Vernon % (Auto) (2-11) % Eos % (Auto) (0-4) % Baso % (Auto) (0-2) % Lymph # (Auto) (1.2-4.9) X10*3/uL Vernon # (Auto) (0.1-1.2) X10*3/uL Eos # (Auto) (0.0-0.4) X10*3/uL Baso # (Auto) (0.0-0.2) X10*3/uL Abs Immat Gran (auto) (0.00-0.03) X10*3/uL Absolute Neuts (auto) (2.0-8.3) x10*3/uL Absolute Nucleated RBC (0.0-0.012) X10*3/uL Nucleated RBC % (auto) (0.0-0.2) /100WBC Smear Tech's Comments PT (9.9-13.0) SEC INR (0.9-1.1) Sodium (135-145) mmol/L Potassium (3.3-5.1) mmol/L Chloride (96-108) mmol/L Carbon Dioxide (22-29) mmol/L Anion Gap (12-20) BUN (9-16) mg/dL Creatinine (0.5-1.4) mg/dL Estim Creat Clear Calc Estimated GFR POC Glucose 230 H (60-115) mg/dL Random Glucose (60-115) mg/dL Lactic Acid (0.5-2.0) mmol/L Calcium (8.4-10.2) mg/dL Total Bilirubin (0.0-1.0) mg/dL Direct Bilirubin (0.0-0.5) mg/dL AST (5-37) U/L ALT (0-40) U/L Alkaline Phosphatase (39-117) U/L Troponin I High Sens 53.5 H D (<3.5-35.0) ng/L B-Natriuretic Peptide (<100) pg/mL Total Protein (6.5-8.0) g/dL Albumin (3.5-5.0) g/dL COVID-19 (GENE) (Negative) COVID-19 Clin Com Critical Care Time Critical Care Time Critical Care Time: Yes Total Critical Care Time: 90 Attestation: 90 minutes were spent in direct patient care, stabilization, consult Discharge Plan Discharge Clinical Impression: YESSENIA (acute kidney injury), UTI (urinary tract infection), New onset of congestive heart failure, Non-ST elevation HI (NSTEMI) Patient Disposition: [facility] Transfer Details: [facility] CCU Prescriptions: No Action latanoprost 0.005 % drops 1 drp ophthalmic (eye) BEDTIME 0RF pioglitazone 45 mg tablet 1 tab PO DAILY 0RF omeprazole 20 mg capsule,delayed release(DR/EC) 1 cap PO DAILY@0630 0RF furosemide 20 mg tablet 1 tab PO DAILY 0RF insulin aspart U-100 [Novolog Flexpen U-100 Insulin] 100 unit/mL (3 mL) insulin pen 2 - 15 unit subcut TIDAC 0RF atorvastatin 40 mg tablet 1 tab PO BEDTIME 0RF dorzolamide-timolol 22.3-6.8 mg/mL drops 1 drp ophthalmic (eye) DAILY 0RF lisinopril 40 mg tablet 1 tab PO DAILY 0RF fenofibrate 160 mg tablet 1 tab PO QAM 0RF Lantus Solostar U-100 Insulin 100 unit/mL (3 mL) insulin pen 12 unit subcut BEDTIME 0RF Jardiance 25 mg tablet 1 tab PO DAILY 0RF levofloxacin 500 mg tablet 500 mg PO DAILY Qty: 5 0RF oxybutynin chloride 10 mg tablet extended release 24hr 5 mg PO DAILY Qty: 3 0RF
[2021-05-03] MEDS: Morphine Sulfate 2 MG/ML CARTRIDGE 1 MG IVPUSH (01:53)
--- NOTE | 2021-05-03 02:01 | PC.NURSE ---
pt off to CT
[2021-05-03 02:29] LABS: Basophils Absolute Auto 0.1 X10*3/uL (0.0-0.2); Basophils Percent Auto 0.3 % (0-2); Eosinophils Absolute Auto 0.1 X10*3/uL (0.0-0.4); Eosinophils Percent Auto 0.6 % (0-4); Hematocrit 26.8 % (42.0-52.0); Hemoglobin 8.7 g/dl (14.0-18.0); Lymphocytes Absolute Auto 1.4 X10*3/uL (1.2-4.9); MANUAL DIFF FLAG SCAN; Mean Corpuscular HGB Conc 32.5 g/dl (31.0-36.0); Mean Corpuscular Hemoglobin 30.9 pg (27.0-33.0); Mean Platelet Volume 9.5 fL (9.4-12.4); Monocytes Absolute Auto 1.7 X10*3/uL (0.1-1.2); Monocytes Percent Auto 8.4 % (2-11); Neutrophils Absolute Auto 16.3 x10*3/uL (2.0-8.3); Neutrophils Percent Auto 82.7 % (45-73); Platelet Count 379 X10*3/uL (160-400); Red Blood Count 2.82 X10*6/uL (4.60-5.80); Red Cell Distribution Width 13.2 % (11.0-16.0); SCAN SMEAR FLAG 1; White Blood Count 19.7 X10*3/uL (4.8-10.8)
[2021-05-03] MEDS: 0.9 % Sodium Chloride 1,000 ML 999 ML IVCONT ×2 (02:32)
[2021-05-03] MEDS: cefTRIAXone sodium 1 GM in 0.9 % Sodium Chloride 50 ML IV (02:32)
[2021-05-03 02:35] LABS: INTERNATIONAL NORM RATIO 1.3 (0.9-1.1); Prothrombin Time 14.5 SEC (9.9-13.0)
[2021-05-03 02:41] LABS: Lactic Acid 1.5 mmol/L (0.5-2.0)
[2021-05-03 02:47] LABS: COVID-19 Test Negative (Negative)
[2021-05-03 02:51] LABS: Alanine Aminotransferase 77 U/L (0-40); Albumin Level 2.6 g/dL (3.5-5.0); Alkaline Phosphatase 287 U/L (39-117); Anion Gap 15 (12-20); Aspartate Amino Transferase 123 U/L (5-37); Bilirubin Direct 0.4 mg/dL (0.0-0.5); Bilirubin Total 0.7 mg/dL (0.0-1.0); Blood Urea Nitrogen 29 mg/dL (9-16); Calcium 8.1 mg/dL (8.4-10.2); Carbon Dioxide 22 mmol/L (22-29); Chloride 101 mmol/L (96-108); Creatinine Clr Calc Pharmacy 25.7; Estimated Glomerular Filt Rate 29; Glucose Random 261 mg/dL (60-115); Potassium 4.4 mmol/L (3.3-5.1); Sodium 134 mmol/L (135-145); Total Protein 6.2 g/dL (6.5-8.0)
[2021-05-03 02:59] LABS: SLIDE REVIEW VERIFIED
--- NOTE | 2021-05-03 03:36 | ECG_ITS ---
Test Reason : WEAKNESS Blood Pressure : / mmHG Vent. Rate : 124 BPM Atrial Rate : 124 BPM P-R Int : 128 ms QRS Dur : 102 ms QT Int : 326 ms P-R-T Axes : 080 023 184 degrees QTc Int : 468 ms Sinus tachycardia Cannot rule out Anterior infarct , age undetermined ST & T wave abnormality, consider inferolateral ischemia Abnormal ECG When compared with ECG of 15-APR-2021 13:31, Vent. rate has increased BY [address] now depressed in Anterolateral leads T wave inversion now evident in Lateral leads Referred By: Gaye Sebastian Electronically Signed By:LUZ RAYMOND
--- NOTE | 2021-05-03 03:40 | PC.NURSE ---
licensed chemical spray technician at bedside obtaining lab work and EKG Plan for admission. pt aware of plan of care. no questions or concerns at this time.
[2021-05-03] MEDS: Aspirin Enteric Coated 325 MG TABLET.DR PO (03:59)
--- NOTE | 2021-05-03 04:00 | PC.NURSE ---
this RN notified pt 02 sat 82% on room air with good pleth. pt placed on 2L NC and 02 sat increased to 93%. MD to bedside to assess pt. pt placed on 15L NRB. pt now 100% on NRB at 15+ L. Radiology at bedside obtaining chest XR. New orders to follow
[2021-05-03 04:03] LABS: Troponin-I High Sensitivity 29.6 ng/L (<3.5-35.0)
[2021-05-03] MEDS: Furosemide 40 MG/4 ML VIAL IVPUSH (04:06)
--- NOTE | 2021-05-03 04:08 | PC.NURSE ---
RT at bedside, pt to be put on bipap
--- NOTE | 2021-05-03 04:14 | PC.NURSE ---
cable television technician at bedside for repeat EKG
[2021-05-03 04:21] LABS: B Type Natriuretic Peptide 517 pg/mL (<100)
[2021-05-03 04:23] LABS: Glucose, Whole Blood 230 mg/dL (60-115)
[2021-05-03] MEDS: Ticagrelor 90 MG TABLET 180 MG PO (04:37)
[2021-05-03] MEDS: Heparin Sodium,Porcine 5,000 UNIT/ML VIAL 4000 UNIT IVPUSH (04:45)
[2021-05-03] MEDS: Heparin Sodium,Porcine/1/2NS 25,000 UNIT/250 ML IV.SOLN 10.36 UNIT IVCONT (04:52)
--- NOTE | 2021-05-03 04:52 | PC.NURSE ---
CALL OUT TO SALES REPRESENTATIVE SUPERVISOR @[phone] AT [facility], [place]
[2021-05-03 04:55] LABS: Troponin-I High Sensitivity 53.5 ng/L (<3.5-35.0)
--- NOTE | 2021-05-03 05:00 | PC.NURSE ---
second IV line placed by this RN. 20g R wrist
--- NOTE | 2021-05-03 05:02 | PC.NURSE ---
CALL OUT TO [facility] LUZ MARINA LINE @[phone]
--- NOTE | 2021-05-03 05:24 | PC.NURSE ---
second call out store keeper @[phone]
--- NOTE | 2021-05-03 06:06 | PC.NURSE ---
bipap discontinued by RT, pt placed on 2L NC by RT, 02 sat 99% on 2L nc
--- NOTE | 2021-05-03 06:25 | ECG_ITS ---
Test Reason : REPEAT Blood Pressure : / mmHG Vent. Rate : 111 BPM Atrial Rate : 111 BPM P-R Int : 130 ms QRS Dur : 088 ms QT Int : 336 ms P-R-T Axes : 056 007 148 degrees QTc Int : 456 ms Sinus tachycardia Possible Anterior infarct (cited on or before 03-MAY-2021) Inferior injury pattern ACUTE NC / STEMI Consider right ventricular involvement in acute inferior infarct Abnormal ECG When compared with ECG of 03-MAY-2021 04:12, No significant changes seen Referred By: Gaye Sebastian Electronically Signed By:LUZ RAYMOND
--- NOTE | 2021-05-03 06:25 | ECG_ITS ---
Test Reason : REPEAT Blood Pressure : / mmHG Vent. Rate : 127 BPM Atrial Rate : 127 BPM P-R Int : 130 ms QRS Dur : 092 ms QT Int : 314 ms P-R-T Axes : 057 -05 118 degrees QTc Int : 456 ms Sinus tachycardia with Premature atrial complexes Possible Anterior infarct (cited on or before 03-MAY-2021) Marked ST abnormality, possible lateral subendocardial injury Inferior ST elevation Abnormal ECG When compared with ECG of 03-MAY-2021 04:14, No significant changes seen Referred By: Gaye Sebastian Electronically Signed By:LUZ RAYMOND
--- NOTE | 2021-05-03 06:26 | ECG_ITS ---
Test Reason : REPEAT Blood Pressure : / mmHG Vent. Rate : 103 BPM Atrial Rate : 103 BPM P-R Int : 126 ms QRS Dur : 092 ms QT Int : 336 ms P-R-T Axes : 043 -02 104 degrees QTc Int : 440 ms Sinus tachycardia Cannot rule out Anterior infarct (cited on or before 03-MAY-2021) Slight ST elevation lead III Abnormal ECG When compared with ECG of 03-MAY-2021 04:58, No significant changes seen Referred By: Gaye Sebastian Electronically Signed By:LUZ RAYMOND
--- NOTE | 2021-05-03 06:26 | PC.NURSE ---
nurse to nurse report given to Patricia DURAN at [facility] ([phone])
== END 2021-05-03 06:30 | disposition short-term general hospital (02) ==
PROVIDERS: Emergency Provider Emergency Medicine
DX: I21.4 Non-ST elevation (NSTEMI) myocardial infarction (principal); N17.9 Acute kidney failure, unspecified; N39.0 Urinary tract infection, site not specified; I50.9 Heart failure, unspecified; E13.9 Other specified diabetes mellitus without complications; I10 Essential (primary) hypertension; R06.02 Shortness of breath; Z20.822 Contact with and (suspected) exposure to COVID-19; Z79.899 Other long term (current) drug therapy; Z79.4 Long term (current) use of insulin; Z87.891 Personal history of nicotine dependence
CPT/HCPCS: 36415; 71045; 74176; 80048; 80076; 82947; 83605; 83880; 84484; 85025; 85610; 87040; 87635; 93005; 94660; 96360; 96361; 96365; 96375; 96376; 99285; J0696; J1940; J2270

== ENCOUNTER 2021-07-01 14:42 | Emergency (ER) | payer MEDICARE, SELFPAY ==
--- NOTE | ~2021-07-01 | CT_ITS ---
EXAMINATION: CT BRAIN AND CT CERVICAL SPINE WITHOUT CONTRAST. CLINICAL INFORMATION: Fall on helical wrist. COMPARISON: None TECHNIQUE: 5 mm thin axial and reformatted 2 mm thin sagittal and coronal images of brain were obtained without contrast. Axial 3 mm thin and reformatted 2 mm thin sagittal and coronal images of cervical spine were obtained without contrast. FINDINGS: BRAIN: There is no acute intra-axial, extra-axial bleed, masses or collection. There is no acute infarction evolution. There is no edema. There is no midline shift. There is no midline shift. There is mild asymmetric lateral ventricles without enlargement. There is moderate left frontal and periorbital hematoma and soft tissue swelling. No calvarial fracture seen. The paranasal sinuses and mastoid air cells are well-aerated and clear. There is minimal mucoperiosteal thickening in bilateral maxillary sinuses is noted. CERVICAL SPINE: There is maintained cervical lordosis. The vertebral heights and alignment is normal. Loss of C3-C4 C6-C7 and C7-T1 disc heights with ventral and posterior spondylosis. The craniovertebral junction and the C1-C2 alignment is normal. There is no visible acute fracture, dislocation or lytic process seen. The prevertebral and paravertebral soft tissues are normal. The thyroid lobes, bilateral parotid and submandibular glands are symmetrical and normal. There is widely patent. The lung apices are clear. CT/CT cervical spine wo con IMPRESSION: Left frontal forehead and periorbital soft tissue hematoma and swelling. No underlying calvarial fracture. The sinuses are clear. No acute intracranial process. Degenerative disc changes C3-4, C6-C7 and C7-T1 disc levels. No visible acute fracture, dislocation or subluxation seen.
--- NOTE | ~2021-07-01 | CT_ITS ---
EXAMINATION: CT BRAIN AND CT CERVICAL SPINE WITHOUT CONTRAST. CLINICAL INFORMATION: Fall on helical wrist. COMPARISON: None TECHNIQUE: 5 mm thin axial and reformatted 2 mm thin sagittal and coronal images of brain were obtained without contrast. Axial 3 mm thin and reformatted 2 mm thin sagittal and coronal images of cervical spine were obtained without contrast. FINDINGS: BRAIN: There is no acute intra-axial, extra-axial bleed, masses or collection. There is no acute infarction evolution. There is no edema. There is no midline shift. There is no midline shift. There is mild asymmetric lateral ventricles without enlargement. There is moderate left frontal and periorbital hematoma and soft tissue swelling. No calvarial fracture seen. The paranasal sinuses and mastoid air cells are well-aerated and clear. There is minimal mucoperiosteal thickening in bilateral maxillary sinuses is noted. CERVICAL SPINE: There is maintained cervical lordosis. The vertebral heights and alignment is normal. Loss of C3-C4 C6-C7 and C7-T1 disc heights with ventral and posterior spondylosis. The craniovertebral junction and the C1-C2 alignment is normal. There is no visible acute fracture, dislocation or lytic process seen. The prevertebral and paravertebral soft tissues are normal. The thyroid lobes, bilateral parotid and submandibular glands are symmetrical and normal. There is widely patent. The lung apices are clear. CT/CT head/brain wo con IMPRESSION: Left frontal forehead and periorbital soft tissue hematoma and swelling. No underlying calvarial fracture. The sinuses are clear. No acute intracranial process. Degenerative disc changes C3-4, C6-C7 and C7-T1 disc levels. No visible acute fracture, dislocation or subluxation seen.
--- NOTE | ~2021-07-01 | XR_ITS ---
EXAMINATION: XR FOOT, LEFT CLINICAL INFORMATION: Fall COMPARISON: None TECHNIQUE: AP, lateral, and oblique views of the left foot. FINDINGS: Bones of the midfoot are well aligned. No tarsal, metatarsal or phalangeal fracture. Mild degenerative changes of the IP joints diffusely. No focal soft tissue swelling. No gross ankle joint effusion. Vascular calcifications noted. XR/XR foot LT min 3V IMPRESSION: No fracture.
[2021-07-01 14:44] VITALS: BP 173/95; PULSE 120; RESP 18; TEMP 36; O2SAT 99; BMI 29.2
--- NOTE | 2021-07-01 15:09 | ED.FALL ---
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 Mode of arrival: ambulatory Limitations: no limitations History of Present Illness complaint: fall Onset (ago): minute(s) (just [employer]) Fall from: standing Fall witnessed: yes, by family Place fall occurred: other (outside [facility]) Loss of consciousness: none Prolonged down time: no Symptoms prior to fall: none Context: tripped/slipped Location of injury: head and face Location of injury - extremities: left: foot and right: hand Severity: moderate Quality: dull Associated symptoms (after fall): other (has abrasions and scrapes to bottom of left foot/toes and large hematoma to forehead he is on eliquis) Related Data Home Medications Medication Instructions Recorded Confirmed furosemide 20 mg tablet 1 tab PO DAILY 01/03/20 04/14/21 insulin aspart U-100 100 unit/mL 2 - 15 unit SUBCUT TIDAC 01/03/20 04/14/21 (3 mL) subcutaneous pen (Novolog Flexpen U-100 Insulin aspart) latanoprost 0.005 % eye drops 1 drp OPHTHALMIC (EYE) BEDTIME 01/03/20 04/14/21 omeprazole 20 mg capsule,delayed 1 cap PO DAILY@0630 01/03/20 04/14/21 release pioglitazone 45 mg tablet 1 tab PO DAILY 01/03/20 04/14/21 atorvastatin 40 mg tablet 1 tab PO BEDTIME 04/14/21 04/14/21 dorzolamide 22.3 mg-timolol 6.8 1 drp OPHTHALMIC (EYE) DAILY 04/14/21 04/14/21 mg/mL eye drops empagliflozin 25 mg tablet 1 tab PO DAILY 04/14/21 04/14/21 (Jardiance) fenofibrate 160 mg tablet 1 tab PO QAM 04/14/21 04/14/21 insulin glargine 100 unit/mL (3 12 unit SUBCUT BEDTIME 04/14/21 04/14/21 mL) subcutaneous pen (Lantus Solostar U-100 Insulin) lisinopril 40 mg tablet 1 tab PO DAILY 04/14/21 04/14/21 Previous Rx's Medication Instructions Recorded levofloxacin 500 mg tablet 500 mg PO DAILY #5 tab 04/28/21 oxybutynin chloride 10 mg 5 mg PO DAILY #3 tab 04/29/21 tablet,extended release 24 hr Allergies Allergy/AdvReac Type Severity Reaction Status Date / Time No Known Allergies Allergy Mild NONE Verified 04/13/21 18:49 Review of Systems Review of Systems: Constitutional : No Fever, No Chills ENT/Mouth : No Ear Pain, No Hoarseness, No sore throat Eyes: No Eye Pain, No Swelling, No Redness, No Foreign Body Cardiovascular : No Chest Pain, No SOB Respiratory : No Cough, No Dyspnea Gastrointestinal : No Nausea, No Vomiting, No Diarrhea, No abdominal Pain Genitourinary : No Dysuria, No Hematuria Musculoskeletal : no joint pain, No Myalgias, No Joint Swelling Skin : No Skin lacerations, No rash, pos abrasions, pos gauges Neuro : No Weakness, No Numbness, No Loss of Consciousness, No Dizziness, No Headache Psych : No Anxiety/Panic, No Depression Heme/Lymph: no easy bruising, no Lymphadenopathy Endocrine : No Polyuria, No Polydipsia All other systems reviewed and are negative [facility] Past Medical History Attestation statement: The following information was validated with the patient. Medical History A-fib Chronic renal failure, stage 4 (severe) Diabetes 1.5, managed as type 2 Glucosuria High cholesterol Hypertension PAF (paroxysmal atrial fibrillation) Surgical History No pertinent past surgical history Family History Family History Other No family history of coronary artery disease Social History Social History Household Members: Children Housing: House Do you presently have visiting nurse or other home services: No Alcohol intake: never Patient Tobacco Use Status: Former Tobacco user Use of substances other than those prescribed or required for medical reasons: No Advance Directives: Yes Advance Directives on File: Yes Advance Directives Date on File: 04/29/21 service: No Physical Exam Vital Signs: Vital Signs: Last Vital Signs Temp 97.7 F 07/01/21 15:29 Pulse 112 H 07/01/21 15:29 Resp 17 07/01/21 15:29 BP 172/90 H 07/01/21 15:29 Pulse Ox 97 07/01/21 15:29 BMI result Body Mass Index 29.2 Appearance: Alert. Oriented X3. No acute distress. Eyes: Pupils equal, round and reactive to light. ENT: Pharynx normal. L eyebrow and forehead area large hematoma with abrasion - bleeding controlled no elliott sign or raccoon eyes Neck: Normal inspection. Neck supple. CVS: Normal heart rate and rhythm. Pulses normal. Respiratory: No respiratory distress. Breath sounds normal. Abdomen: Soft and non-tender. Skin: Skin warm and dry. Normal skin color. Normal skin turgor. Extremities: No lower extremity edema. left foot great toe gouge noted on pad of toe - very scant ooze noted but persistent, abrasions on pad of 3rd and 4th toes - bleeding controlled. superficial abrasions noted to knuckles of both hands Neuro: Oriented X 3. No sensory deficit. R hand contracted due to old stroke otherwise intact Course Course Course Narrative: hemoglobin at baseline signed out to Ev MARSHALL MDM - Fall MDM Narrative Medical decision making narrative: 76 yo male with hx of DM, UTI, afib on eliquis here with c/o mechanical fall - struck head no LOC will need CT head/cspine given age and eliquis use. Xray of left foot - foot wound was cleansed with betadine and surgicel applied to gouge as there was nothing to suture, he is GCS 15 at this time. Lab Data Result diagrams: 07/01/21 15:39 Labs: Lab Results 07/01/21 07/01/21 07/01/21 Range/Units 15:39 15:39 15:39 WBC 9.4 (4.8-10.8) X10*3/uL RBC 2.74 L (4.60-5.80) X10*6/uL Hgb 8.0 L (14.0-18.0) g/dl Hct 25.1 L (42.0-52.0) % MCV 91.6 (80.0-98.0) fL MCH 29.2 (27.0-33.0) pg MCHC 31.9 (31.0-36.0) g/dl RDW 15.9 (11.0-16.0) % Plt Count 284 D (160-400) X10*3/uL MPV 10.0 (9.4-12.4) fL Absolute Nucleated RBC 0.000 (0.0-0.012) X10*3/uL Nucleated RBC % (auto) 0.0 (0.0-0.2) /100WBC PT 18.4 H (9.9-13.0) SEC INR 1.6 H (0.9-1.1) APTT 38.3 H (24.1-38.0) SEC COVID-19 (GENE) Negative (Negative) COVID-19 Clin Com See Note Discharge Plan Discharge Clinical Impression: Facial hematoma, Abrasion Patient Disposition: Still a Patient Additional Instructions: there is a dressing on the toe that will need to be removed in 24 hours. do not pull it off remove at 330pm. apply and soak with hydrogen peroxide then gently pull back, if this does not work you could also soak with coca cola. Then apply clean dressings - keep a close eye on it for infections given diabetes. Prescriptions: No Action latanoprost 0.005 % drops 1 drp ophthalmic (eye) BEDTIME 0RF pioglitazone 45 mg tablet 1 tab PO DAILY 0RF omeprazole 20 mg capsule,delayed release(DR/EC) 1 cap PO DAILY@0630 0RF furosemide 20 mg tablet 1 tab PO DAILY 0RF insulin aspart U-100 [Novolog Flexpen U-100 Insulin] 100 unit/mL (3 mL) insulin pen 2 - 15 unit subcut TIDAC 0RF atorvastatin 40 mg tablet 1 tab PO BEDTIME 0RF dorzolamide-timolol 22.3-6.8 mg/mL drops 1 drp ophthalmic (eye) DAILY 0RF lisinopril 40 mg tablet 1 tab PO DAILY 0RF fenofibrate 160 mg tablet 1 tab PO QAM 0RF Lantus Solostar U-100 Insulin 100 unit/mL (3 mL) insulin pen 12 unit subcut BEDTIME 0RF Jardiance 25 mg tablet 1 tab PO DAILY 0RF levofloxacin 500 mg tablet 500 mg PO DAILY Qty: 5 0RF oxybutynin chloride 10 mg tablet extended release 24hr 5 mg PO DAILY Qty: 3 0RF
[2021-07-01] MEDS: Acetaminophen 325 MG TABLET 650 MG PO (15:27)
[2021-07-01] MEDS: Ondansetron ODT 4 MG TAB.RAPDIS TRANSLINGU (15:27)
[2021-07-01 15:29] VITALS: BP 172/90; PULSE 112; RESP 17; TEMP 36.5; O2SAT 97
[2021-07-01 15:49] LABS: Hematocrit 25.1 % (42.0-52.0); Mean Corpuscular HGB Conc 31.9 g/dl (31.0-36.0); Mean Corpuscular Hemoglobin 29.2 pg (27.0-33.0); Mean Corpuscular Volume 91.6 fL (80.0-98.0); Platelet Count 284 X10*3/uL (160-400); Red Blood Count 2.74 X10*6/uL (4.60-5.80); Red Cell Distribution Width 15.9 % (11.0-16.0); White Blood Count 9.4 X10*3/uL (4.8-10.8)
[2021-07-01 15:57] LABS: INTERNATIONAL NORM RATIO 1.6 (0.9-1.1); Prothrombin Time 18.4 SEC (9.9-13.0)
[2021-07-01 15:59] LABS: Partial Thromboplastin Time 38.3 SEC (24.1-38.0)
[2021-07-01 16:05] LABS: COVID-19 Test Negative (Negative)
[2021-07-01 17:49] VITALS: BP 166/77; PULSE 97; RESP 17; TEMP 36.6; O2SAT 99
--- NOTE | 2021-07-01 17:55 | ECG_ITS ---
Test Reason : fall Blood Pressure : / mmHG Vent. Rate : 098 BPM Atrial Rate : 098 BPM P-R Int : 126 ms QRS Dur : 098 ms QT Int : 368 ms P-R-T Axes : 047 -09 019 degrees QTc Int : 469 ms Normal sinus rhythm Poor R progression anterior leads Nonspecific ST abnormality Abnormal ECG When compared with ECG of 03-MAY-2021 05:15, No significant change was found Referred By: Lata Chowdhury Electronically Signed By:LUZ RAYMOND
[2021-07-01 18:40] LABS: Troponin-I High Sensitivity 67.8 ng/L (<3.5-35.0)
[2021-07-01 19:44] VITALS: BP 169/86; PULSE 88; RESP 19; O2SAT 99
== END 2021-07-01 20:40 | disposition home or self-care (01) ==
PROVIDERS: Nurse Practitioner Family; Emergency Provider Emergency Medicine
DX: S00.83XA Contusion of other part of head, initial encounter (principal); S90.812A Abrasion, left foot, initial encounter; E13.22 Other specified diabetes mellitus with diabetic chronic kidney disease; I12.9 Hypertensive chronic kidney disease with stage 1 through stage 4 chronic kidney disease, or unspecified chronic kidney disease; N18.4 Chronic kidney disease, stage 4 (severe); I48.0 Paroxysmal atrial fibrillation; Z79.01 Long term (current) use of anticoagulants; W01.0XXA Fall on same level from slipping, tripping and stumbling without subsequent striking against object, initial encounter; Y93.9 Activity, unspecified; Y92.480 Sidewalk as the place of occurrence of the external cause; Y99.9 Unspecified external cause status; Z20.822 Contact with and (suspected) exposure to COVID-19
CPT/HCPCS: 36415; 70450; 72125; 73630; 84484; 85027; 85610; 85730; 87635; 93005; 99284; 99285

== ENCOUNTER → 2021-07-17 11:10 | Outpatient (BNVA) | payer MEDICARE, SELFPAY | PROVIDERS: PCP Internal Medicine; Visit Provider Urology | DX: N13.30 Unspecified hydronephrosis (principal); N32.89 Other specified disorders of bladder | CPT/HCPCS: 52310; 99212 ==

== ENCOUNTER 2021-09-23 07:45 | Outpatient (REF) | payer MEDICARE, SELFPAY ==
--- NOTE | ~2021-09-23 | US_ITS ---
EXAMINATION: US RETROPERITONEAL LIMITED (RENAL ONLY) CLINICAL INFORMATION: Hematuria. COMPARISON: CT abdomen pelvis 05/03/2021. X-ray KUB 04/18/2021. Ultrasound renal 03/27/2013. TECHNIQUE: Real-time imaging of the kidneys. FINDINGS: RIGHT KIDNEY: 10.1 x 7 x 6 cm (SAG x AP x TRV). The kidney is normal in size, contour, and echogenicity. Renal cortical thickness is normal. No calculi or focal parenchymal lesions. No hydronephrosis. There is an exophytic lesion along the upper pole of right kidney and inferior margin of the right hepatic lobe measuring 1.9 x 1.3 x 2.1 cm. This may represent a small right adrenal cyst. LEFT KIDNEY: 10.5 x 4.8 x 5.1 cm (SAG x AP x TRV). The kidney is normal in size, contour, and echogenicity. Renal cortical thickness is normal. No calculi or focal parenchymal lesions. No hydronephrosis. There is a left ureteral stent in place. US/US renal BI IMPRESSION: Left adrenal cyst measures 2.1 cm. Unchanged to previous CT abdomen exam 05/03/2021. Partially visualized left ureteral stent in the bladder. No echogenic renal calculi or hydronephrosis is seen.
== END 2021-09-23 07:46 | disposition home or self-care (01) ==
LOC: HO.US 07:45
PROVIDERS: Visit Provider Urology
DX: R31.9 Hematuria, unspecified (principal)
CPT/HCPCS: 76775

== ENCOUNTER → 2021-10-01 09:49 | Outpatient (BNVA) | payer MEDICARE, SELFPAY | PROVIDERS: PCP Internal Medicine | DX: N13.30 Unspecified hydronephrosis (principal) | CPT/HCPCS: Q3014 ==

== ENCOUNTER 2021-10-29 13:21 | Outpatient (REF) | payer OTHER, SELFPAY ==
[2021-10-29 14:05] LABS: Hematocrit 34.3 % (42.0-52.0); Hemoglobin 10.8 g/dl (14.0-18.0); Mean Corpuscular HGB Conc 31.5 g/dl (31.0-36.0); Mean Corpuscular Hemoglobin 29.2 pg (27.0-33.0); Mean Corpuscular Volume 92.7 fL (80.0-98.0); Mean Platelet Volume 11.1 fL (9.4-12.4); Platelet Count 205 X10*3/uL (160-400); Red Cell Distribution Width 16.7 % (11.0-16.0)
[2021-10-29 14:46] LABS: Anion Gap 15 (12-20); Blood Urea Nitrogen 37 mg/dL (9-16); Calcium 8.8 mg/dL (8.4-10.2); Carbon Dioxide 22 mmol/L (22-29); Chloride 104 mmol/L (96-108); Estimated Glomerular Filt Rate 28; Glucose Random 158 mg/dL (60-115); Potassium 4.6 mmol/L (3.3-5.1); Sodium 136 mmol/L (135-145)
[2021-10-29 17:30] LABS: Appearance Urine Clear; Color Urine Yellow; Creatinine Urine 13.22 mg/dL; Glucose Urine UA 500 mg/dL (Negative); Leukocyte Esterase Urine Large (3+) (Negative); Nitrite Urine Negative (Negative); PH 6.5 (5.0-8.0); Protein/Creatinine Ratio, Ur 0.76 (<0.2); Specific Gravity - Urine <= 1.005 (1.005-1.025); Total Protein Urine Random 10 mg/dL (<12); Urine Blood Small (1+) (Negative); Urine Ketones Negative (Negative); Urine Protein Negative (Neg-Trace)
[2021-10-29 17:58] LABS: Bacteria Urine 4+ (None Seen); Hyaline Casts Urine 0-2 /LPF (0-2); RBC Urine 0-2 /HPF (0-2); Squamous Epithelial Cell Urine 0-2 /HPF (0-2); UACC Culture Trigger YES; WBC Urine >50 /HPF (0-5)
== END 2021-10-29 13:22 | disposition home or self-care (01) ==
LOC: HO.LAB 13:21
PROVIDERS: PCP Internal Medicine; Visit Provider Internal Medicine Hypertension Specialist
DX: N18.32 Chronic kidney disease, stage 3b (principal)
CPT/HCPCS: 36415; 80048; 81001; 84156; 85027; 87086; 87088; 87186

== ENCOUNTER 2021-11-05 11:35 | Inpatient (IN) | payer OTHER, SELFPAY ==
--- NOTE | ~2021-11-05 | CT_ITS ---
EXAMINATION: CT HEAD WITHOUT CONTRAST CLINICAL INFORMATION: Garbled speech. Unsteady gait. COMPARISON: None. TECHNIQUE: Contiguous axial imaging was performed from the skull base to vertex without intravenous contrast. This CT examination was performed using dose optimization techniques as appropriate, variously including the following: * Automated exposure control * Adjustment of mA and/or kV according to patient size (this includes techniques or standardized protocols for targeted exams where dose is matched to indication/reason for exam; i.e. extremities or head) Use of iterative reconstruction technique DLP: 649 mGy-cm. FINDINGS: There is no evidence of acute intracranial hemorrhage or territorial infarction. No abnormal mass effect or midline shift is seen. Moreno to white matter differentiation is well preserved. No extra-axial fluid collections are identified. No hydrocephalus. Proportional prominence of the ventricles and sulcal spaces is consistent with mild volume loss. Patchy periventricular and deep white matter hypoattenuation is consistent with mild small vessel ischemic changes. The osseous structures and soft tissues are normal. Mild mucoperiosteal thickening throughout the ethmoid air cells bilaterally. Mucous retention cyst of the left maxillary sinus. The mastoid air cells and visualized portions of the paranasal sinuses are otherwise well aerated. CT/CT head for stroke IMPRESSION: No acute intracranial pathology. This critical result was discussed with JACOB Bales by telephone at 11/05/2021 12:04 PM and it was ascertained that the content and urgency of the report was understood at the time of direct communication.
--- NOTE | ~2021-11-05 | MR_ITS ---
EXAMINATION: MR BRAIN WITHOUT CONTRAST CLINICAL INFORMATION: Altered mental status. Confusion. Ataxic gait. COMPARISON: CT head 11/05/2021. TECHNIQUE: Multiplanar, multisequence imaging of the brain was performed without intravenous contrast. FINDINGS: There is no acute infarction, hemorrhage, mass, or extra-axial fluid collection. There is a chronic appearing microhemorrhage within the right ventral karon. Moderate patchy and partly confluent T2/FLAIR hyperintensity seen within the cerebral white matter, presumably on the basis of chronic microangiopathy. The ventricles and sulci are commensurate. No hydrocephalus is seen. Mild amount of T2/FLAIR hyperintense signal is seen within the bilateral cerebellar deep white matter, also present previously. The major arterial flow voids are preserved at the skull base. The orbital contents appear normal. Small amount of mastoid fluid and mild to moderate paranasal sinus mucosal thickening. There are bilateral lens replacements. Spondylotic changes are seen within the upper cervical spine. MR/MR head/brain wo con IMPRESSION: No acute intracranial abnormality. Specifically, no evidence of acute infarction or mass. Chronic appearing microhemorrhage seen within the karon.
--- NOTE | ~2021-11-05 | XR_ITS ---
EXAMINATION: XR ABDOMEN KUB CLINICAL INDICATION: Rule out implants for MRI COMPARISON: CT 05/03/2021 TECHNIQUE: AP view of the abdomen. FINDINGS: Left ureteral stent in place. No unexpected radiopaque foreign body. Normal bowel gas pattern. Gas and stool throughout the colon. The lung bases are clear. XR/XR KUB IMPRESSION: No unexpected radiopaque foreign body to preclude MRI.
--- NOTE | ~2021-11-05 | CT_ITS ---
EXAMINATION: CT ANGIOGRAM HEAD CT ANGIOGRAM NECK CLINICAL INFORMATION: Confusion. Garbled speech. COMPARISON: CT head from 11/05/2021 and 07/01/2021. Brain MRI from 02/22/2008. TECHNIQUE: Initial noncontrast tool room attendant imaging of the head and neck was performed. Comparison is made with noncontrast head CT from earlier today. Test bolus sequences followed by intravenous administration 70 mL of Omnipaque 350. Helical imaging was performed in the axial plane from the aortic arch to the skull vertex. Delayed postcontrast imaging of the head was also performed. The data was processed at the medical technologist chemistry's workstation for generation of MIP sequences. Angled MIPs and volume rendered reformatted images were also generated at an offline 3D workstation. Stenoses are assessed in accordance with NASCET criteria unless otherwise indicated. This CT examination was performed using dose optimization techniques as appropriate, variously including the following: *Automated exposure control. *Adjustment of mA and/or kV according to patient size (this includes techniques or standardized protocols for targeted exams where dose is matched to indication/reason for exam; i.e. extremities or head). *Use of iterative reconstruction technique. DLP: 1410 mGy-cm FINDINGS: CT Head: There is no evidence of acute intracranial hemorrhage or edematous territorial infarction. Chronic coarse calcification in the right lateral karon. Scattered hypoattenuation in the periventricular and deep white matter are consistent with moderate microangiopathy. Chronic lacunar infarct of the right cerebellar hemisphere. No new loss of cline-white matter differentiation. Proportional prominence of the ventricles and sulcal spaces. No evidence for obstructive hydrocephalus. No abnormal mass effect or midline shift. No extra-axial fluid collections. No pathologic intra-axial enhancement. No acute soft tissue or osseous abnormalities. Moderate mucosal thickening of the paranasal sinuses. Small left-sided mastoid effusion. The right-sided mastoid air cells and middle ear cavities are clear. The patient is edentulous. CT Neck: The thyroid gland and remaining cervical soft tissues are within normal limits. Mild degenerative retrolistheses of C3 on C4 and C4 on C5. Advanced degenerative disc disease at C3-C4 and C6-C7. Moderate degenerative disc disease at all additional cervical levels. Disc-osteophyte complex formation appears to cause at least mild spinal canal stenosis at C3-C4. CT Upper Chest: Moderate mosaic attenuation pattern of the visualized upper lungs with increased reticulation no demonstrated significant abnormalities of the visualized upper mediastinum. Neck CTA: Aortic Arch: Normal contour and caliber with mild calcific atherosclerotic disease. Classic 3 vessel branching pattern of the aortic arch. Great Vessel Origins: No significant stenosis of the branch origins. Right Common Carotid Artery: No focal stenosis or occlusion. Cervical Right Internal Carotid Artery: Lipid rich atherosclerotic disease of the carotid bulb and proximal internal carotid artery causing less than 50% stenosis. Left Common Carotid Artery: No focal stenosis or occlusion. Cervical Left Internal Carotid Artery: Mild calcific atherosclerotic disease of the carotid bulb and proximal internal carotid artery without flow-limiting stenosis. Cervical Right Vertebral Artery: Co-dominant. Atherosclerotic disease causes mild stenosis of the origin. No additional focal stenosis or occlusion. Cervical Left Vertebral Artery: Co-dominant. Atherosclerotic disease causes mild stenosis of the origin. No additional focal stenosis or occlusion. Brain CTA: Intracranial Internal Carotid Arteries: Calcific atherosclerotic disease of the intracranial internal carotid arteries without occlusion or flow-limiting stenosis. Right Anterior Cerebral Artery: Normal A1 segment. Normal opacification of the distal SHADIA segments. Left Anterior Cerebral Artery: Normal A1 segment. Normal opacification of the distal SHADIA segments. Anterior Communicating Artery: Normal. Right Middle Cerebral Artery: Normal M1 segment of the MCA without focal stenosis or occlusion. Normal arborization of the distal segments. Left Middle Cerebral Artery: Normal M1 segment of the MCA without focal stenosis or occlusion. Normal arborization of the distal segments. Right Vertebral Artery: Normal V4 segment. Normal opacification of the proximal segments of the posterior inferior cerebellar artery. Left Vertebral Artery: Normal V4 segment. Extradural origin of the posterior inferior cerebellar artery. Basilar Artery: Normal without focal stenosis or occlusion. Normal appearance of the proximal superior cerebellar arteries. Right Posterior Cerebral Artery: The P1 segment is diminutive. origin of the [employer] with robust opacification of the posterior communicating artery. Normal opacification of the distal [employer] segments. Left Posterior Cerebral Artery: Normal P1 segment. Normal opacification of the distal [employer] segments. Normal opacification of the superior sagittal straight sinuses. Dominant right-sided transverse/sigmoid sinuses. The left-sided transverse/sigmoid sinuses are hypoplastic. Otherwise, normal opacification of the transverse/sigmoid sinuses. CT/CT angio head neck stroke IMPRESSION: 1. No evidence of acute intracranial hemorrhage or edematous territorial infarction. Moderate underlying microangiopathy and generalized cerebral volume loss. Chronic lacunar infarct of the right cerebellar hemisphere. 2. CTA of the head and neck without proximal occlusion or flow-limiting stenosis. 3. Moderate multilevel degenerative spondyloarthropathy of the cervical spine. There appears to be at least mild spinal canal stenosis at C3-C4. This critical result was discussed with Dr. Gilman at 13:04 on 11/05/2021 and it was ascertained that the content and urgency of the report was understood at the time of direct communication.
--- NOTE | ~2021-11-05 | XR_ITS ---
EXAMINATION: XR CHEST CLINICAL INFORMATION: Altered mental status COMPARISON: April 2021. TECHNIQUE: AP upright portable view of the chest was obtained. 1:05 PM FINDINGS: Examination at low lung volumes with some compression of parenchymal markings. No dominant airspace consolidations seen. Linear atelectatic change observed toward the right base. No evidence for vascular congestion or pleural effusions. XR/XR chest 1V IMPRESSION: Atelectatic changes observed toward the right base. No dominant consolidations or vascular congestion.
--- NOTE | 2021-11-05 11:45 | ED.GENADULT ---
HPI - General Adult General Chief complaint: Altered Mental Status Stated complaint: LOW BS 40, 160 NOW,NO STROKE SYMPTOMS PER EMS Time Seen by Provider: 11/05/21 11:40 Source: patient and EMS Mode of arrival: EMS Limitations: altered mental status History of Present Illness HPI narrative: 76-year-old male with a past medical history of HLD, HTN, [place], prior CVA, diabetes on Actos and Jardiance, on Eliquis and Plavix, presenting to the ED via EMS for AMS, garbled speech, unsteady gait starting around 11AM. Daughter called EMS. Upon EMS arrival patient's blood glucose was 40, improved to 160 s/p oral glucagon and D10. Per EMS patient was following commands/at baseline after dextrose. Upon arrival to ED POC 105, patient A&O x2, confused, unable to supply reliable history. Onset (ago): hour(s) Related Data Home Medications Medication Instructions Recorded Confirmed pioglitazone 45 mg tablet 1 tab PO DAILY 01/03/20 11/05/21 atorvastatin 40 mg tablet 1 tab PO BEDTIME 04/14/21 11/05/21 empagliflozin 25 mg tablet 1 tab PO DAILY 04/14/21 11/05/21 (Jardiance) isosorbide mononitrate 60 mg 60 mg PO DAILY 07/17/21 11/05/21 tablet,extended release 24 hr apixaban 5 mg tablet (Eliquis) 5 mg PO BID 10/01/21 11/05/21 pen needle, diabetic 32 gauge x #50 ea 10/01/21 11/05/2132 (UltiCare Pen Needle) Allergies Allergy/AdvReac Type Severity Reaction Status Date / Time No Known Allergies Allergy Mild NONE Verified 11/05/21 12:56 Review of Systems Review of Systems: ROS limited secondary to patient's acute mental status Yes all other systems are reviewed and are negative Constitutional: Constitutional: Reports as per [facility] Past Medical History Attestation statement: The following information was validated with the patient. Medical History A-fib Chronic renal failure, stage 4 (severe) Diabetes 1.5, managed as type 2 Glucosuria High cholesterol Hypertension PAF (paroxysmal atrial fibrillation) Surgical History No pertinent past surgical history Family History Family History Other No family history of coronary artery disease Social History Social History (System 11/05/21 @ 12:56 by Lashay Kelley) Household Members: Children Housing: House Do you presently have visiting nurse or other home services: No Alcohol intake: never Patient Tobacco Use Status: Former Tobacco user Advance Directives: No Advance Directives Date on File: 04/29/21 service: No Physical Exam ED Vital Signs: Vital Signs - 24 hr 11/05/21 11:46 11/05/21 13:11 Pulse Rate 101 H 88 Respiratory Rate 20 16 Blood Pressure 188/85 H 188/84 H Pulse Oximetry 100 97 Oxygen Delivery Method Room Air Room Air BMI result Body Mass Index 26.3 Const General: cooperative and no acute distress Orientation/consciousness: oriented to person and oriented to place Limitations: no limitations HENMT Head: Yes normal to inspection, Yes atraumatic and No Whitman's sign Ears: hearing grossly normal bilaterally General nose exam: Normal external nose present Face and sinus: Yes normal facial exam Throat: Yes posterior oropharynx normal Eyes General: appearance normal, both eyes and all related structures EOM: EOMs intact bilaterally Neck Neck: Yes normal visual inspection and Yes no meningeal signs Resp Effort & Inspection: normal respiratory effort and no respiratory distress Auscultation: clear to auscultation bilaterally, no crackles, no rales, no rhonchi and no wheezes Cardio Rate: regular rate and tachycardic Heart sounds: S1 normal heart sound present and S2 normal heart sound present GI Inspection: Yes normal to inspection Palpation (GI): Soft to palpation, nontender, no guarding and not rigid Skin Rashes: no rashes Wounds: no wounds Neuro Other: slow steady gait General: oriented to person, oriented to place, tone normal and no meningeal signs Cognition (Neuro): abnormal cognition (confused, intermittently followng commands) Motor exam (neuro): 5/5 motor strength present throughout, Pronator motor function not present and no tremor noted Extrem General: Yes normal to inspection and Yes no pedal edema NIH Stroke Scale Internal: Initial- Upon Arrival Level of Consciousness: Alert Level of Consciousness Questions: Answers one question correctly Level of Consciousness Commands: Performs both tasks correctly Best Gaze: Normal Visual: No visual loss Facial Palsy: Normal Motor Arm (Right): No drift Motor Arm (Left): No drift Motor Leg (Right): No drift Motor Leg (Left): No drift Limb Ataxia: Absent Sensory: Normal Best Language: No aphasia Dysarthia: Normal Extinction and Inattention: No abnormality Score: 1 Course Course Course Narrative: 1206--CT head for stroke IMPRESSION: No acute intracranial pathology. Obtain better history from daughter reports symptoms began around 1045/11:00, describes ataxic gait and confusion, father was not responding. Normally A&O x3. Previous to this patient was talking with daughter about that is currently admitted at [facility] -1315--CTA head and neck unremarkable. Case was discussed with Neurology Dr. Moffett reports nothing to do at this time -no leukocytosis. H&H stable. Chronic CKD. Troponin mildly elevated to 9.8, elevated priors > will obtain 3 hour repeat. UA not infected >Plan to admit for further management Medical Decision Making MDM Narrative Medical decision making narrative: 76-year-old male with a past medical history of HLD, HTN, [place], prior CVA, diabetes on Actos and Jardiance, on Eliquis and Plavix, presenting to the ED via EMS for AMS, garbled speech, unsteady gait starting around 11AM. Upon EMS arrival patient's blood glucose was 40, improved baseline after oral glucagon and D10. Upon patient arrival to ED POC 105, patient is A&O x2, confused, intermittently following commands, no evidence of trauma, lungs CTA, abdomen soft/nontender. Concern for CVA vs TIA vs hypoglycemia vs metabolic or infectious etiologies. Low suspicion for severe sepsis at this time Stroke protocol initiated upon initial evaluation. Patient is not a tPA candidate due to already being anticoagulated Plan: EKG, labs, UA, CXR, head CT, CTA head and neck, anticipated admission Medical Records Medical records reviewed: Yes I reviewed the patient's medical records. Lab Data Lab results reviewed: Yes I reviewed the patient's lab results. Result diagrams: 11/05/21 12:41 11/05/21 12:41 Labs: Lab Results 11/05/21 11/05/21 11/05/21 Range/Units 11:47 12:20 12:41 WBC 7.9 (4.8-10.8) X10*3/uL RBC 3.71 L (4.60-5.80) X10*6/uL Hgb 10.9 L (14.0-18.0) g/dl Hct 34.1 L (42.0-52.0) % MCV 91.9 (80.0-98.0) fL MCH 29.4 (27.0-33.0) pg MCHC 32.0 (31.0-36.0) g/dl RDW 16.5 H (11.0-16.0) % Plt Count 172 (160-400) X10*3/uL MPV 10.4 (9.4-12.4) fL Immature Gran % (Auto) 0.4 (0.0-0.4) % Neut % (Auto) 81.5 H (45-73) % Lymph % (Auto) 6.5 L (20-40) % [place] % (Auto) 10.1 (2-11) % Eos % (Auto) 1.0 (0-4) % Baso % (Auto) 0.5 (0-2) % Lymph # (Auto) 0.5 L (1.2-4.9) X10*3/uL [place] # (Auto) 0.8 (0.1-1.2) X10*3/uL Eos # (Auto) 0.1 (0.0-0.4) X10*3/uL Baso # (Auto) 0.0 (0.0-0.2) X10*3/uL Abs Immat Gran (auto) 0.03 (0.00-0.03) X10*3/uL Absolute Neuts (auto) 6.5 (2.0-8.3) x10*3/uL Absolute Nucleated RBC 0.000 (0.0-0.012) X10*3/uL Nucleated RBC % (auto) 0.0 (0.0-0.2) /100WBC PT (10.0-13.1) SEC Whole Blood PT 15.3 H (11.1-13.5) sec INR (0.9-1.1) Whole Blood INR 1.3 H (0.9-1.1) APTT (26.0-36.4) SEC Sodium (135-145) mmol/L Potassium (3.3-5.1) mmol/L Chloride (96-108) mmol/L Carbon Dioxide (22-29) mmol/L Anion Gap (12-20) BUN (9-16) mg/dL Creatinine (0.5-1.4) mg/dL Estim Creat Clear Calc Estimated GFR POC Glucose 105 (60-115) mg/dL Random Glucose (60-115) mg/dL Calcium (8.4-10.2) mg/dL Magnesium (1.6-2.6) mg/dL Total Bilirubin (0.0-1.0) mg/dL Direct Bilirubin (0.0-0.5) mg/dL AST (5-37) U/L ALT (0-40) U/L Alkaline Phosphatase (39-117) U/L Troponin I High Sens (<3.5-35.0) ng/L Total Protein (6.5-8.0) g/dL Albumin (3.5-5.0) g/dL Urine Color Urine Appearance Urine pH (5.0-9.0) Ur Specific [place] (1.005-1.025) Urine Protein (Neg-Trace) mg/dL Urine Glucose (UA) (Negative) mg/dL Urine Ketones (Negative) mg/dL Urine Blood (Negative) Urine Nitrite (Negative) Ur Leukocyte Esterase (Negative) Urine RBC (0-2) /HPF Urine WBC (0-5) /HPF Ur Squamous Epith Cells (0-2) /HPF Urine Bacteria (None Seen) Hyaline Casts (0-2) /LPF COVID-19 (GENE) (Negative) COVID-19 Clin Com 11/05/21 11/05/21 11/05/21 Range/Units 12:41 12:41 12:41 WBC (4.8-10.8) X10*3/uL RBC (4.60-5.80) X10*6/uL Hgb (14.0-18.0) g/dl Hct (42.0-52.0) % MCV (80.0-98.0) fL MCH (27.0-33.0) pg MCHC (31.0-36.0) g/dl RDW (11.0-16.0) % Plt Count (160-400) X10*3/uL MPV (9.4-12.4) fL Immature Gran % (Auto) (0.0-0.4) % Neut % (Auto) (45-73) % Lymph % (Auto) (20-40) % [place] % (Auto) (2-11) % Eos % (Auto) (0-4) % Baso % (Auto) (0-2) % Lymph # (Auto) (1.2-4.9) X10*3/uL [place] # (Auto) (0.1-1.2) X10*3/uL Eos # (Auto) (0.0-0.4) X10*3/uL Baso # (Auto) (0.0-0.2) X10*3/uL Abs Immat Gran (auto) (0.00-0.03) X10*3/uL Absolute Neuts (auto) (2.0-8.3) x10*3/uL Absolute Nucleated RBC (0.0-0.012) X10*3/uL Nucleated RBC % (auto) (0.0-0.2) /100WBC PT 14.6 H (10.0-13.1) SEC Whole Blood PT (11.1-13.5) sec INR 1.3 H (0.9-1.1) Whole Blood INR (0.9-1.1) APTT 37.6 H (26.0-36.4) SEC Sodium 137 (135-145) mmol/L Potassium 4.8 (3.3-5.1) mmol/L Chloride 109 H (96-108) mmol/L Carbon Dioxide 17 L (22-29) mmol/L Anion Gap 16 (12-20) BUN 43 H (9-16) mg/dL Creatinine 2.11 H (0.5-1.4) mg/dL Estim Creat Clear Calc 28.2 Estimated GFR 31 POC Glucose (60-115) mg/dL Random Glucose 62 D (60-115) mg/dL Calcium 8.5 (8.4-10.2) mg/dL Magnesium 2.1 (1.6-2.6) mg/dL Total Bilirubin 0.4 (0.0-1.0) mg/dL Direct Bilirubin < 0.2 (0.0-0.5) mg/dL AST 24 D (5-37) U/L ALT 11 (0-40) U/L Alkaline Phosphatase 81 D (39-117) U/L Troponin I High Sens 9.8 D (<3.5-35.0) ng/L Total Protein 7.3 (6.5-8.0) g/dL Albumin 3.6 D (3.5-5.0) g/dL Urine Color Urine Appearance Urine pH (5.0-9.0) Ur Specific [place] (1.005-1.025) Urine Protein (Neg-Trace) mg/dL Urine Glucose (UA) (Negative) mg/dL Urine Ketones (Negative) mg/dL Urine Blood (Negative) Urine Nitrite (Negative) Ur Leukocyte Esterase (Negative) Urine RBC (0-2) /HPF Urine WBC (0-5) /HPF Ur Squamous Epith Cells (0-2) /HPF Urine Bacteria (None Seen) Hyaline Casts (0-2) /LPF COVID-19 (GENE) (Negative) COVID-19 Clin Com 11/05/21 11/05/21 11/05/21 Range/Units 12:41 13:04 14:58 WBC (4.8-10.8) X10*3/uL RBC (4.60-5.80) X10*6/uL Hgb (14.0-18.0) g/dl Hct (42.0-52.0) % MCV (80.0-98.0) fL MCH (27.0-33.0) pg MCHC (31.0-36.0) g/dl RDW (11.0-16.0) % Plt Count (160-400) X10*3/uL MPV (9.4-12.4) fL Immature Gran % (Auto) (0.0-0.4) % Neut % (Auto) (45-73) % Lymph % (Auto) (20-40) % [place] % (Auto) (2-11) % Eos % (Auto) (0-4) % Baso % (Auto) (0-2) % Lymph # (Auto) (1.2-4.9) X10*3/uL [place] # (Auto) (0.1-1.2) X10*3/uL Eos # (Auto) (0.0-0.4) X10*3/uL Baso # (Auto) (0.0-0.2) X10*3/uL Abs Immat Gran (auto) (0.00-0.03) X10*3/uL Absolute Neuts (auto) (2.0-8.3) x10*3/uL Absolute Nucleated RBC (0.0-0.012) X10*3/uL Nucleated RBC % (auto) (0.0-0.2) /100WBC PT (10.0-13.1) SEC Whole Blood PT (11.1-13.5) sec INR (0.9-1.1) Whole Blood INR (0.9-1.1) APTT (26.0-36.4) SEC Sodium (135-145) mmol/L Potassium (3.3-5.1) mmol/L Chloride (96-108) mmol/L Carbon Dioxide (22-29) mmol/L Anion Gap (12-20) BUN (9-16) mg/dL Creatinine (0.5-1.4) mg/dL Estim Creat Clear Calc Estimated GFR POC Glucose 47 L* (60-115) mg/dL Random Glucose (60-115) mg/dL Calcium (8.4-10.2) mg/dL Magnesium (1.6-2.6) mg/dL Total Bilirubin (0.0-1.0) mg/dL Direct Bilirubin (0.0-0.5) mg/dL AST (5-37) U/L ALT (0-40) U/L Alkaline Phosphatase (39-117) U/L Troponin I High Sens (<3.5-35.0) ng/L Total Protein (6.5-8.0) g/dL Albumin (3.5-5.0) g/dL Urine Color Yellow Urine Appearance Cloudy Urine pH 5.5 (5.0-9.0) Ur Specific [place] <= 1.005 (1.005-1.025) Urine Protein Negative (Neg-Trace) mg/dL Urine Glucose (UA) 500 H (Negative) mg/dL Urine Ketones Negative (Negative) mg/dL Urine Blood Small (1+) H (Negative) Urine Nitrite Negative (Negative) Ur Leukocyte Esterase Large (3+) H (Negative) Urine RBC 3-5 H (0-2) /HPF Urine WBC >50 (0-5) /HPF Ur Squamous Epith Cells 0-2 (0-2) /HPF Urine Bacteria 3+ (None Seen) Hyaline Casts 0-2 (0-2) /LPF COVID-19 (GENE) Negative (Negative) COVID-19 Clin Com See Note ECG Data Attestation: I personally reviewed and interpreted this ECG as follows: Prior ECG tracings: not available for review Interpretation: EKG normal sinus rhythm at a rate of 90. Nonspecific ST abnormality. QTC 459. No STEMI Discharge Plan Discharge Clinical Impression: Hypoglycemia, Acute metabolic encephalopathy Patient Disposition: Admitted As Inpatient
[2021-11-05 11:46] VITALS: BP 132/66; BP 188/85; PULSE 101; PULSE 70; RESP 20; O2SAT 100; O2SAT 98; BMI 26.3
[2021-11-05 11:51] LABS: Glucose, Whole Blood 105 mg/dL (60-115)
--- NOTE | 2021-11-05 11:53 | ECG_ITS ---
Test Reason : AMS Blood Pressure : / mmHG Vent. Rate : 090 BPM Atrial Rate : 090 BPM P-R Int : 130 ms QRS Dur : 104 ms QT Int : 376 ms P-R-T Axes : 060 004 017 degrees QTc Int : 459 ms Normal sinus rhythm Nonspecific ST abnormality Abnormal ECG No previous ECGs available Referred By: Patricia Mendoza Electronically Signed By:MATI KEVIN
[2021-11-05 12:24] LABS: Prothrombin Time Whole Bld POC 15.3 sec (11.1-13.5); ~PT, ~INR - Anti Coag Clinic 1.3 (0.9-1.1)
[2021-11-05] MEDS: iohexoL 350 MG/ML 100 ML INFUS..BTL IV (12:34)
[2021-11-05 12:45] LABS: MANUAL DIFF FLAG NO
[2021-11-05 12:47] LABS: Basophils Percent Auto 0.5 % (0-2); Eosinophils Absolute Auto 0.1 X10*3/uL (0.0-0.4); Hematocrit 34.1 % (42.0-52.0); Hemoglobin 10.9 g/dl (14.0-18.0); Imm Gran Abs Auto 0.03 X10*3/uL (0.00-0.03); Imm Gran Pct Auto 0.4 % (0.0-0.4); Lymphocytes Absolute Auto 0.5 X10*3/uL (1.2-4.9); Lymphocytes Percent Auto 6.5 % (20-40); Mean Corpuscular Hemoglobin 29.4 pg (27.0-33.0); Mean Corpuscular Volume 91.9 fL (80.0-98.0); Mean Platelet Volume 10.4 fL (9.4-12.4); Monocytes Absolute Auto 0.8 X10*3/uL (0.1-1.2); Monocytes Percent Auto 10.1 % (2-11); Neutrophils Absolute Auto 6.5 x10*3/uL (2.0-8.3); Neutrophils Percent Auto 81.5 % (45-73); Platelet Count 172 X10*3/uL (160-400); Red Blood Count 3.71 X10*6/uL (4.60-5.80); Red Cell Distribution Width 16.5 % (11.0-16.0); White Blood Count 7.9 X10*3/uL (4.8-10.8)
[2021-11-05 12:52] LABS: INTERNATIONAL NORM RATIO 1.3 (0.9-1.1); Prothrombin Time 14.6 SEC (10.0-13.1)
[2021-11-05 12:54] LABS: Partial Thromboplastin Time 37.6 SEC (26.0-36.4)
[2021-11-05 12:59] LABS: Stroke Lab Use COMPLETE
[2021-11-05 13:06] LABS: Troponin-I High Sensitivity 9.8 ng/L (<3.5-35.0)
[2021-11-05 13:08] LABS: COVID-19 Test Negative (Negative)
[2021-11-05 13:11] VITALS: BP 188/84; PULSE 88; RESP 16; O2SAT 97
[2021-11-05 13:11] LABS: Alanine Aminotransferase 11 U/L (0-40); Albumin Level 3.6 g/dL (3.5-5.0); Alkaline Phosphatase 81 U/L (39-117); Anion Gap 16 (12-20); Aspartate Amino Transferase 24 U/L (5-37); Bilirubin Direct < 0.2 mg/dL (0.0-0.5); Bilirubin Total 0.4 mg/dL (0.0-1.0); Blood Urea Nitrogen 43 mg/dL (9-16); Calcium 8.5 mg/dL (8.4-10.2); Carbon Dioxide 17 mmol/L (22-29); Chloride 109 mmol/L (96-108); Creatinine Clr Calc Pharmacy 28.2; Estimated Glomerular Filt Rate 31; Glucose Random 62 mg/dL (60-115); Magnesium 2.1 mg/dL (1.6-2.6); Potassium 4.8 mmol/L (3.3-5.1); Sodium 137 mmol/L (135-145); Total Protein 7.3 g/dL (6.5-8.0)
[2021-11-05 13:14] LABS: Appearance Urine Cloudy; Color Urine Yellow; Glucose Urine UA 500 mg/dL (Negative); Leukocyte Esterase Urine Large (3+) (Negative); Nitrite Urine Negative (Negative); PH 5.5 (5.0-9.0); Specific Gravity - Urine <= 1.005 (1.005-1.025); Urine Blood Small (1+) (Negative); Urine Ketones Negative (Negative); Urine Protein Negative (Neg-Trace)
[2021-11-05 13:20] LABS: Squamous Epithelial Cell Urine 0-2 /HPF (0-2); UACC Culture Trigger YES; WBC Urine >50 /HPF (0-5)
[2021-11-05 13:21] LABS: Bacteria Urine 3+ (None Seen); Hyaline Casts Urine 0-2 /LPF (0-2)
--- NOTE | 2021-11-05 14:09 | PHA.MEDREC ---
Pharmacy Consult ? Medication Reconciliation Pharmacy has completed the medication reconciliation. Used list that was faxed up by ED. List from [facility]/ [facility]
--- NOTE | 2021-11-05 14:52 | P.HPHOSP_ITS ---
History of Present Illness Date of Service: 11/05/21 Attending physician on admission: Matt Nicole Chief Complaint: AMS 76 year old male with history significant for ?HLD, afib on eliquis, HTN, [place], ckd stage 4, prior CVA on plaxis, non-insulin dependent type 1.5 diabetes on Actos and Jardiance, presenting to the ED via EMS for AMS, garbled speech, unsteady gait starting around 11AM. Patient is confused oriented to self in lying in bed unable to provide reliable history.. Per ED note, he lives with his daughter, Bari, states patient is usually A&Ox3. Daughter called EMS with blood glucose of 40 upon their arrival and received D10 and glucagon with improvement in glucose to 160. On arrival to the ED glucose 105. Head CT and CTA negative for acute abnormality though does show chronic lacunar infarct. ED discussed with neurology who did not recommend further stroke work up at this time. He would not be tpa candidate anyway given anticoagulation status. CXR with small linear atelectasis toward right base. Recently treated for 5 days UTI sensitive to levaquin. UA with 3+ leuks, 1+ blood, 3+ bacteria, nitrite negative. Urine culture pending. No leukocytosis. Renal function at baseline. Trop slightly elevated at 9.8 (has hx elevated trops), 3 hr repeat pending. EKG with normal sinus rhythm and nonspecific st abnormality. Review of Systems Review of Systems: Patient unable to provide compelte reliable history due to mental status. History obtained from ED provider note. General: No fevers, malaise, unintentional weight loss HEENT: No blurred vision, diplopia Cardiovascular: No chest pain, palpitations, or leg edema Respiratory: No shortness of breath, wheezing, cough GI: No abdominal pain, nausea, vomiting, diarrhea, constipation, melena, hematochezia : No dysuria, hematuria, urgency Neuro: No headaches, weakness, paresthesias Skin: No rashes or lesions [facility] Medical History A-fib Chronic renal failure, stage 4 (severe) Diabetes 1.5, managed as type 2 Glucosuria High cholesterol Hypertension PAF (paroxysmal atrial fibrillation) Family History Other No family history of coronary artery disease Pertinent family history: Pt unable to provide family history Surgical History No pertinent past surgical history Social History (System 11/05/21 @ 12:56 by Lashay Kelley) Household Members: Children Housing: House Do you presently have visiting nurse or other home services: No Alcohol intake: never Patient Tobacco Use Status: Former Tobacco user Advance Directives: No Advance Directives Date on File: 04/29/21 service: No Meds Allergies Allergy/AdvReac Type Severity Reaction Status Date / Time No Known Allergies Allergy Mild NONE Verified 11/05/21 12:56 Home Medications Medication Instructions Recorded Confirmed Last Taken Type pioglitazone 45 mg tablet 1 tab PO DAILY 01/03/20 11/05/21 Unknown History atorvastatin 40 mg tablet 1 tab PO BEDTIME 04/14/21 11/05/21 Unknown History empagliflozin 25 mg tablet 1 tab PO DAILY 04/14/21 11/05/21 Unknown History (Jardiance) isosorbide mononitrate 60 mg 60 mg PO DAILY 07/17/21 11/05/21 Unknown History tablet,extended release 24 hr apixaban 5 mg tablet (Eliquis) 5 mg PO BID 10/01/21 11/05/21 Unknown History pen needle, diabetic 32 gauge x #50 ea 10/01/21 11/05/21 Unknown History (UltiCare Pen Needle) Physical Exam Vital Signs and Narrative: Vital Signs: Last Vital Signs Pulse 88 11/05/21 13:11 Resp 16 11/05/21 13:11 BP 188/84 H 11/05/21 13:11 Pulse Ox 97 11/05/21 13:11 O2 Del Method 11/05/21 13:11 BMI result Body Mass Index 26.3 Constitutional - Awake and Alert, No apparent distress Eyes - PERRLA, EOMI Cardiovascular - S1S2, RRR, No edema Respiratory - Normal lung expansion, Normal respiratory effort, No respiratory distress, CTA bilaterally Gastrointestinal - NT / ND; +BS; No rebound or guarding Extremities - no calf tenderness bilaterally, no swelling Skin - Warm/Dry Neurological - Confused, Alert & oriented to self only, Difficulty following commands. CN -XII in tact. 5/5 strength BUE and BLE. Somewhat shuffling gait. No tremor Psychological - Appropriate affect Results Labs CBC and Chem 7: 11/05/21 12:41 11/05/21 12:41 Labs: Laboratory Results - last 24 hr 11/05/21 11/05/21 11/05/21 11:47 12:20 12:41 MCV 91.9 MCH 29.4 MCHC 32.0 RDW 16.5 H Plt Count 172 MPV 10.4 Immature Gran % (Auto) 0.4 Neut % (Auto) 81.5 H Lymph % (Auto) 6.5 L [place] % (Auto) 10.1 Eos % (Auto) 1.0 Baso % (Auto) 0.5 Lymph # (Auto) 0.5 L [place] # (Auto) 0.8 Eos # (Auto) 0.1 Baso # (Auto) 0.0 Abs Immat Gran (auto) 0.03 Absolute Neuts (auto) 6.5 Absolute Nucleated RBC 0.000 Nucleated RBC % (auto) 0.0 PT Whole Blood PT 15.3 H INR Whole Blood INR 1.3 H APTT Anion Gap Estim Creat Clear Calc Estimated GFR POC Glucose 105 Random Glucose Calcium Magnesium Total Bilirubin Direct Bilirubin AST ALT Alkaline Phosphatase Total Protein Albumin Urine Color Urine Appearance Urine pH Ur Specific [place] Urine Protein Urine Glucose (UA) Urine Ketones Urine Blood Urine Nitrite Ur Leukocyte Esterase Urine RBC Urine WBC Ur Squamous Epith Cells Urine Bacteria Hyaline Casts COVID-19 (GENE) COVID-19 Clin Com 11/05/21 11/05/21 11/05/21 12:41 12:41 12:41 MCV MCH MCHC RDW Plt Count MPV Immature Gran % (Auto) Neut % (Auto) Lymph % (Auto) [place] % (Auto) Eos % (Auto) Baso % (Auto) Lymph # (Auto) [place] # (Auto) Eos # (Auto) Baso # (Auto) Abs Immat Gran (auto) Absolute Neuts (auto) Absolute Nucleated RBC Nucleated RBC % (auto) PT 14.6 H Whole Blood PT INR 1.3 H Whole Blood INR APTT 37.6 H Anion Gap 16 Estim Creat Clear Calc 28.2 Estimated GFR 31 POC Glucose Random Glucose 62 D Calcium 8.5 Magnesium 2.1 Total Bilirubin 0.4 Direct Bilirubin < 0.2 AST 24 D ALT 11 Alkaline Phosphatase 81 D Total Protein 7.3 Albumin 3.6 D Urine Color Urine Appearance Urine pH Ur Specific [place] Urine Protein Urine Glucose (UA) Urine Ketones Urine Blood Urine Nitrite Ur Leukocyte Esterase Urine RBC Urine WBC Ur Squamous Epith Cells Urine Bacteria Hyaline Casts COVID-19 (GENE) Negative COVID-19 Clin Com See Note 11/05/21 13:04 MCV MCH MCHC RDW Plt Count MPV Immature Gran % (Auto) Neut % (Auto) Lymph % (Auto) [place] % (Auto) Eos % (Auto) Baso % (Auto) Lymph # (Auto) [place] # (Auto) Eos # (Auto) Baso # (Auto) Abs Immat Gran (auto) Absolute Neuts (auto) Absolute Nucleated RBC Nucleated RBC % (auto) PT Whole Blood PT INR Whole Blood INR APTT Anion Gap Estim Creat Clear Calc Estimated GFR POC Glucose Random Glucose Calcium Magnesium Total Bilirubin Direct Bilirubin AST ALT Alkaline Phosphatase Total Protein Albumin Urine Color Yellow Urine Appearance Cloudy Urine pH 5.5 Ur Specific [place] <= 1.005 Urine Protein Negative Urine Glucose (UA) 500 H Urine Ketones Negative Urine Blood Small (1+) H Urine Nitrite Negative Ur Leukocyte Esterase Large (3+) H Urine RBC 3-5 H Urine WBC >50 Ur Squamous Epith Cells 0-2 Urine Bacteria 3+ Hyaline Casts 0-2 COVID-19 (GENE) COVID-19 Clin Com Imaging Radiologist's Impressions: Impressions Head CT 11/05/21 12:02 IMPRESSION: No acute intracranial pathology. This critical result was discussed with JACOB Bales by telephone at 11/05/2021 12:04 PM and it was ascertained that the content and urgency of the report was understood at the time of direct communication. Head/Neck CTA 11/05/21 12:33 IMPRESSION: 1. No evidence of acute intracranial hemorrhage or edematous territorial infarction. Moderate underlying microangiopathy and generalized cerebral volume loss. Chronic lacunar infarct of the right cerebellar hemisphere. 2. CTA of the head and neck without proximal occlusion or flow-limiting stenosis. 3. Moderate multilevel degenerative spondyloarthropathy of the cervical spine. There appears to be at least mild spinal canal stenosis at C3-C4. This critical result was discussed with Dr. Gilman at 13:04 on 11/05/2021 and it was ascertained that the content and urgency of the report was understood at the time of direct communication. Chest X-Ray 11/05/21 13:14 IMPRESSION: Atelectatic changes observed toward the right base. No dominant consolidations or vascular congestion. Assessment and Plan (1) Hypoglycemia: Status: Acute (2) Metabolic encephalopathy: Status: Acute (3) UTI (urinary tract infection): Status: Acute Plan 76 year old male with history significant for ?HLD, afib on eliquis, HTN, [place], ckd stage 4, prior CVA on plaxis, non-insulin dependent type 1.5 diabetes on Actos and Jardiance being admitted for altered mental status, hypoglycemia, and UTI. 1- UTI- recently treated x5 days for levaquin sensitive UTI. UA today still with 3+ leuks, nitrite negative, 1+ blood -Urine culture pending -Initiate ceftriaxone -No leukocytosis. Afebrile. 2-Metabolic encephalopathy -Patient A&Ox3 at baseline. Now oriented to self only with confused speech and gait ataxia -Head Ct and CTA negative. Neurology does not recommend further stroke work up at this time. No other focal neuro deficit. Renal function baseline. Will also check thyroid function. -Possibly related to hypoglycemia vs UTI vs recent fluoroquinolone use -Continue treating hypoglycemia and UTI as above and below -bedside swallow eval ordered 7-[id number] dependent type 2 diabetes with hypoglycemia -Unclear when pt last ate -Hold actos and jardiance which can cause hypoglycemia -Diabetic diet once swallow eval completed -Hypoglycemia protocol with D5 and glucagon with POC glucose levels ordered 4-HTN- BP improved to 157/77 -Continue imdur 5-Paroxysmal Atrial fibrillation- stable -Continue eliquis for anticoagulation -Rate controlled with out medication 6-CAD with history [place]- stable without anginal chest pain -Mildly elevated trop 9.8 with history elevated trops. 3 hr repeat pending -Continue isosorbide -Continue atorvastatin 7-History CVA -Continue plavix -AMS not felt to be related to stroke per neurology 8-CKD stage 4 -renal function at baseline -Continue following with outpt nephrology DVT prophylaxis- continue eliquis Full code Patient requires inpatient stay of at least 2 midnights due to altered mental s tatus of unclear etiology requiring further work up. Quality Stroke Does the patient have a stroke diagnosis?: No VTE Prior VTE?: No VTE Risk Level:: Medical - moderate - high VTE Device Contraindication: Treatment Not Indicated VTE Drug Contraindication: N/A - Med Ordered
[2021-11-05] MEDS: Dextrose 50 % 25 GM/50 ML SYRINGE IVPUSH (15:05)
[2021-11-05 15:29] LABS: Glucose, Whole Blood 47 mg/dL (60-115)
[2021-11-05 15:48] VITALS: BP 157/77; PULSE 86; RESP 18; O2SAT 99
[2021-11-05 15:54] LABS: Glucose, Whole Blood 159 mg/dL (60-115)
[2021-11-05] MEDS: 0.9 % Sodium Chloride Flush 3 ML SYRINGE IVFLUSH (16:19)
[2021-11-05] MEDS: cefTRIAXone sodium 1 GM in 0.9 % Sodium Chloride 50 ML IV (16:19)
[2021-11-05 16:50] LABS: TSH reflex Free T4 3.86 uIU/mL (0.32-4.0)
[2021-11-05 18:30] LABS: Glucose, Whole Blood 65 mg/dL (60-115)
--- NOTE | 2021-11-05 19:09 | MHC.CM.PN ---
IMM 11/05. Pt is alert and orientated to name and place. Mohawk speaking. CM assessment completed with daughter/HCP Carmen Nazario ([phone]). HCP on file. Moderna Vax/boosted x2. Last booster was 11/04/20. Lives with daughter. Has cane, walker, commode and shower chair. Has DM testing supplies. Daughter is his [employer]. 16 hrs/week through [employer]. D/C plan: Home with continuation of [employer] services. Family will transport. CM to follow for d/c needs.
[2021-11-05 19:13] LABS: Glucose, Whole Blood 84 mg/dL (60-115)
[2021-11-05] MEDS: Dextrose 5 % and 0.45 % NaCl 1,000 ML 100 ML IVCONT (19:38)
[2021-11-05 20:17] LABS: Glucose, Whole Blood 153 mg/dL (60-115)
[2021-11-05] MEDS: Apixaban 5 MG TABLET PO (20:44)
[2021-11-05] MEDS: Atorvastatin Calcium 40 MG TABLET PO (20:44)
[2021-11-06 00:23] VITALS: BP 102/53; PULSE 84; RESP 18; TEMP 36.7; O2SAT 99
[2021-11-06] MEDS: Dextrose 5 % and 0.45 % NaCl 1,000 ML 100 ML IVCONT (04:23)
[2021-11-06 07:19] LABS: Glucose, Whole Blood 147 mg/dL (60-115)
[2021-11-06 08:24] VITALS: BP 153/77; PULSE 86; RESP 16; O2SAT 99
[2021-11-06] MEDS: Isosorbide Mononitrate 60 MG TAB.ER.24H PO (08:41)
[2021-11-06] MEDS: Apixaban 5 MG TABLET PO ×2 (08:42→19:59)
--- NOTE | 2021-11-06 10:55 | HO.PM.IMPN ---
Subjective Subjective Date of Service: 11/06/21 Interval History: cc: ams interval history:improved Cardiovascular Cardiovascular: Reports no additional cardiovascular complaints Respiratory Respiratory: Reports no additional respiratory complaints Physical Exam Vital Signs: Vital Signs: Last Vital Signs Temp 98.0 F 11/06/21 00:23 Pulse 86 11/06/21 08:24 Resp 16 11/06/21 08:24 BP 153/77 H 11/06/21 08:24 Pulse Ox 99 11/06/21 08:24 O2 Del Method 11/06/21 08:24 BMI result Body Mass Index 26.3 General: AO X 2, no acute distress Resp: CTA bilateral, no accessory muscles used CVS: S1,S2,RRR GI: soft, non tender, non distended Neuro: motor grossly intact, alert Psych: appropriate affect, appropriate insight Objective Data Active Medications Apixaban (Apixaban 5 Mg Tablet) 5 mg PO BID [facility] Last Admin: 11/06/21 08:42 Dose: 5 mg Documented By: DALTON Atorvastatin Calcium (Atorvastatin Calcium 40 Mg Tablet) 40 mg PO BEDTIME [facility] Last Admin: 11/05/21 20:44 Dose: 40 mg Documented By: JULIANN Dextrose (Dextrose 50 % 25 Gm/50 Ml Syringe) 25 gm IVPUSH Q15M PRN; Protocol PRN Reason: per Hypoglycemia Standing Ord. Last Admin: 11/05/21 15:05 Dose: 25 gm Documented By: MARILUZ Glucose (Glucose Gel 15 Gm Gel..Gram.) 15 gm PO Q15M PRN; Protocol PRN Reason: per Hypoglycemia Standing Ord. Ceftriaxone Sodium 1 gm/ (Sodium Chloride) 50 mls @ 100 mls/hr IV Q24H [facility] Last Infusion: 11/06/21 08:37 Dose: 0 mls/hr Documented By: DALTON Dextrose/Sodium Chloride (D51/2ns) 1,000 mls @ 100 mls/hr IVCONT .Q10H [facility] Last Admin: 11/06/21 04:23 Dose: 100 mls/hr Documented By: JULIANN Isosorbide Mononitrate (Isosorbide Mononitrate 60 Mg Tab.Er.24h) 60 mg PO DAILY [facility]; Protocol Last Admin: 11/06/21 08:41 Dose: 60 mg Documented By: DALTON Sodium Chloride (0.9 % Sodium Chloride Flush 3 Ml Syringe) 3 ml IVFLUSH QSHIFT RADHA Last Admin: 11/06/21 08:41 Dose: Not Given Documented By: DALTON Non-Admin Reason: IV Running Labs CBC & Chem 7: 11/05/21 12:41 11/05/21 12:41 Labs: Laboratory Results - last 24 hr 11/05/21 11/05/21 11/05/21 11:47 12:20 12:41 MCV 91.9 MCH 29.4 MCHC 32.0 RDW 16.5 H Plt Count 172 MPV 10.4 Immature Gran % (Auto) 0.4 Neut % (Auto) 81.5 H Lymph % (Auto) 6.5 L Hyde % (Auto) 10.1 Eos % (Auto) 1.0 Baso % (Auto) 0.5 Lymph # (Auto) 0.5 L Hyde # (Auto) 0.8 Eos # (Auto) 0.1 Baso # (Auto) 0.0 Abs Immat Gran (auto) 0.03 Absolute Neuts (auto) 6.5 Absolute Nucleated RBC 0.000 Nucleated RBC % (auto) 0.0 PT Whole Blood PT 15.3 H INR Whole Blood INR 1.3 H APTT Anion Gap Estim Creat Clear Calc Estimated GFR POC Glucose 105 Random Glucose Calcium Magnesium Total Bilirubin Direct Bilirubin AST ALT Alkaline Phosphatase Total Protein Albumin TSH Urine Color Urine Appearance Urine pH Ur Specific [place] Urine Protein Urine Glucose (UA) Urine Ketones Urine Blood Urine Nitrite Ur Leukocyte Esterase Urine RBC Urine WBC Ur Squamous Epith Cells Urine Bacteria Hyaline Casts COVID-19 (GENE) COVID-19 Clin Com 11/05/21 11/05/21 11/05/21 12:41 12:41 12:41 MCV MCH MCHC RDW Plt Count MPV Immature Gran % (Auto) Neut % (Auto) Lymph % (Auto) Hyde % (Auto) Eos % (Auto) Baso % (Auto) Lymph # (Auto) Hyde # (Auto) Eos # (Auto) Baso # (Auto) Abs Immat Gran (auto) Absolute Neuts (auto) Absolute Nucleated RBC Nucleated RBC % (auto) PT 14.6 H Whole Blood PT INR 1.3 H Whole Blood INR APTT 37.6 H Anion Gap 16 Estim Creat Clear Calc 28.2 Estimated GFR 31 POC Glucose Random Glucose 62 D Calcium 8.5 Magnesium 2.1 Total Bilirubin 0.4 Direct Bilirubin < 0.2 AST 24 D ALT 11 Alkaline Phosphatase 81 D Total Protein 7.3 Albumin 3.6 D TSH 3.86 Urine Color Urine Appearance Urine pH Ur Specific [place] Urine Protein Urine Glucose (UA) Urine Ketones Urine Blood Urine Nitrite Ur Leukocyte Esterase Urine RBC Urine WBC Ur Squamous Epith Cells Urine Bacteria Hyaline Casts COVID-19 (GENE) Negative COVID-19 Clin Com See Note 11/05/21 11/05/21 11/05/21 13:04 14:58 15:43 MCV MCH MCHC RDW Plt Count MPV Immature Gran % (Auto) Neut % (Auto) Lymph % (Auto) Hyde % (Auto) Eos % (Auto) Baso % (Auto) Lymph # (Auto) Hyde # (Auto) Eos # (Auto) Baso # (Auto) Abs Immat Gran (auto) Absolute Neuts (auto) Absolute Nucleated RBC Nucleated RBC % (auto) PT Whole Blood PT INR Whole Blood INR APTT Anion Gap Estim Creat Clear Calc Estimated GFR POC Glucose 47 L* 159 H Random Glucose Calcium Magnesium Total Bilirubin Direct Bilirubin AST ALT Alkaline Phosphatase Total Protein Albumin TSH Urine Color Yellow Urine Appearance Cloudy Urine pH 5.5 Ur Specific [place]issa <= 1.005 Urine Protein Negative Urine Glucose (UA) 500 H Urine Ketones Negative Urine Blood Small (1+) H Urine Nitrite Negative Ur Leukocyte Esterase Large (3+) H Urine RBC 3-5 H Urine WBC >50 Ur Squamous Epith Cells 0-2 Urine Bacteria 3+ Hyaline Casts 0-2 COVID-19 (GENE) COVID-19 Clin Com 11/05/21 11/05/21 11/05/21 18:24 19:10 20:14 MCV MCH MCHC RDW Plt Count MPV Immature Gran % (Auto) Neut % (Auto) Lymph % (Auto) Hyde % (Auto) Eos % (Auto) Baso % (Auto) Lymph # (Auto) Hyde # (Auto) Eos # (Auto) Baso # (Auto) Abs Immat Gran (auto) Absolute Neuts (auto) Absolute Nucleated RBC Nucleated RBC % (auto) PT Whole Blood PT INR Whole Blood INR APTT Anion Gap Estim Creat Clear Calc Estimated GFR POC Glucose 65 84 153 H Random Glucose Calcium Magnesium Total Bilirubin Direct Bilirubin AST ALT Alkaline Phosphatase Total Protein Albumin TSH Urine Color Urine Appearance Urine pH Ur Specific [place] Urine Protein Urine Glucose (UA) Urine Ketones Urine Blood Urine Nitrite Ur Leukocyte Esterase Urine RBC Urine WBC Ur Squamous Epith Cells Urine Bacteria Hyaline Casts COVID-19 (GENE) COVID-19 Clin Com 11/06/21 07:15 MCV MCH MCHC RDW Plt Count MPV Immature Gran % (Auto) Neut % (Auto) Lymph % (Auto) Hyde % (Auto) Eos % (Auto) Baso % (Auto) Lymph # (Auto) Hyde # (Auto) Eos # (Auto) Baso # (Auto) Abs Immat Gran (auto) Absolute Neuts (auto) Absolute Nucleated RBC Nucleated RBC % (auto) PT Whole Blood PT INR Whole Blood INR APTT Anion Gap Estim Creat Clear Calc Estimated GFR POC Glucose 147 H Random Glucose Calcium Magnesium Total Bilirubin Direct Bilirubin AST ALT Alkaline Phosphatase Total Protein Albumin TSH Urine Color Urine Appearance Urine pH Ur Specific [place] Urine Protein Urine Glucose (UA) Urine Ketones Urine Blood Urine Nitrite Ur Leukocyte Esterase Urine RBC Urine WBC Ur Squamous Epith Cells Urine Bacteria Hyaline Casts COVID-19 (GENE) COVID-19 Clin Com Assessment and Plan (1) Hypoglycemia: Status: Acute Plan 76 year old male with history significant for ?HLD, afib on eliquis, HTN, WA, ckd stage 4, prior CVA on plavix, 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 UTI- recently treated x5 days for levaquin sensitive UTI. UA still with 3+ leuks, nitrite negative, 1+ blood Urine culture pending continue ceftriaxone Metabolic encephalopathy Patient A&Ox3 at baseline. Now oriented to self and place, not time, has decent incite into reason for admission Head Ct and CTA negative. Neurology does not recommend further stroke work up at this time. No other focal neuro deficit. Renal function baseline. Will Possibly related to hypoglycemia vs UTI vs recent fluoroquinolone use monitor off iv sugar Non-insulin dependent type 2 diabetes with hypoglycemia -Unclear when pt last ate -Hold actos and jardiance which can cause hypoglycemia HTN -Continue imdur Paroxysmal Atrial fibrillation- stable -Continue eliquis for anticoagulation -Rate controlled with out medication CAD with history WA- stable without anginal chest pain -Mildly elevated trop 9.8 with history elevated trops. 3 hr repeat pending -Continue isosorbide -Continue atorvastatin History CVA -Continue eliquis lipitor CKD stage 4 -renal function at baseline -Continue following with outpt nephrology DVT prophylaxis- continue eliquis Full code reason for continued hospitalization: monitoring for maintenance of glucose without treatment Quality Stroke Does the patient have a stroke diagnosis?: No VTE Prior VTE?: No VTE Risk Level:: Medical - moderate - high VTE Device Contraindication: Treatment Not Indicated VTE Drug Contraindication: N/A - Med Ordered
--- NOTE | 2021-11-06 12:13 | PC.NURSE ---
nurse to nurse report given to ROGER Tan
[2021-11-06 12:45] LABS: Glucose, Whole Blood 169 mg/dL (60-115)
--- NOTE | 2021-11-06 14:54 | MHC.CLN ---
NUTRITION ADDED 2 GRAM SODIUM TO DIET ORDER DUE TO CKD STAGE 4. DIET-DIABETIC 2000 KCAL, 2 G SODIUM.
[2021-11-06] MEDS: 0.9 % Sodium Chloride Flush 3 ML SYRINGE IVFLUSH ×2 (15:36→20:01)
[2021-11-06 15:47] VITALS: BP 152/77; PULSE 84; RESP 17; TEMP 36.4; O2SAT 98
[2021-11-06] MEDS: cefTRIAXone sodium 1 GM in 0.9 % Sodium Chloride 50 ML IV (15:53)
[2021-11-06 16:14] LABS: Glucose, Whole Blood 156 mg/dL (60-115)
[2021-11-06 19:23] VITALS: BP 152/72; PULSE 89; RESP 17; TEMP 36.4; O2SAT 98
[2021-11-06 19:49] LABS: Glucose, Whole Blood 171 mg/dL (60-115)
[2021-11-06] MEDS: Atorvastatin Calcium 40 MG TABLET PO (19:59)
[2021-11-07] VITALS: BP 143/75; PULSE 78; RESP 18; TEMP 37; O2SAT 97
[2021-11-07 00:32] LABS: Triiodothyronine T3 Total 103 ng/dL (76-181)
[2021-11-07 07:06] LABS: Anion Gap 14 (12-20); Blood Urea Nitrogen 41 mg/dL (9-16); Calcium 8.7 mg/dL (8.4-10.2); Carbon Dioxide 23 mmol/L (22-29); Chloride 108 mmol/L (96-108); Creatinine Clr Calc Pharmacy 25.8; Estimated Glomerular Filt Rate 28; Glucose Fasting 111 mg/dL (60-99); Potassium 4.9 mmol/L (3.3-5.1); Sodium 140 mmol/L (135-145)
[2021-11-07 07:07] LABS: Hematocrit 35.7 % (42.0-52.0); Hemoglobin 11.1 g/dl (14.0-18.0); Mean Corpuscular HGB Conc 31.1 g/dl (31.0-36.0); Mean Corpuscular Hemoglobin 29.1 pg (27.0-33.0); Mean Corpuscular Volume 93.7 fL (80.0-98.0); Mean Platelet Volume 11.3 fL (9.4-12.4); Platelet Count 180 X10*3/uL (160-400); Red Blood Count 3.81 X10*6/uL (4.60-5.80); Red Cell Distribution Width 16.6 % (11.0-16.0); White Blood Count 6.4 X10*3/uL (4.8-10.8)
[2021-11-07 07:37] VITALS: BP 146/75; PULSE 83; RESP 18; TEMP 36.7; O2SAT 98
[2021-11-07 07:41] VITALS: BP 146/75; PULSE 82; RESP 19; O2SAT 98
[2021-11-07 08:30] LABS: Glucose, Whole Blood 118 mg/dL (60-115)
[2021-11-07] MEDS: Apixaban 5 MG TABLET PO (09:43)
[2021-11-07] MEDS: 0.9 % Sodium Chloride Flush 3 ML SYRINGE IVFLUSH (09:43)
[2021-11-07] MEDS: Isosorbide Mononitrate 60 MG TAB.ER.24H PO (09:43)
--- NOTE | 2021-11-07 10:37 | P.DS_ITS ---
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 Patient is confused oriented to self in lying in bed unable to provide reliable history.. Per ED note, he lives with his daughter, Bari, states patient is usually A&Ox3. Daughter called EMS with blood glucose of 40 upon their arrival and received D10 and glucagon with improvement in glucose to 160. On arrival to the ED glucose 105. Head CT and CTA negative for acute abnormality though does show chronic lacunar infarct. ED discussed with neurology who did not recommend further stroke work up at this time. He would not be tpa candidate anyway given anticoagulation status. CXR with small linear atelectasis toward right base. Recently treated for 5 days UTI sensitive to levaquin. UA with 3+ leuks, 1+ blood, 3+ bacteria, nitrite negat sadie. Urine culture pending. No leukocytosis. Renal function at baseline. Trop slightly elevated at 9.8 (has hx elevated trops), 3 hr repeat pending. EKG with normal sinus rhythm and nonspecific st abnormality. hospital course: Patient was admitted for metabolic encephalopathy due to diabetes with hypoglycemia and recurrent urinary tract infection with pansensitive E coli. patient was treated with ceftriaxone and will be transitioned to 5 more days of cefuroxime. Patient's recurrent UTI and hypoglycemia likely related to Jardiance which will be discontinued. If needed for glycemic control alternative such as metformin should be used. Patient was unable to maintain normal sugars and mental status improved to baseline. First hypertension use continue on Imdur. First paroxysmal atrial fibrillation he was continued on Eliquis. For his coronary disease he was continued on Eliquis, statin. For his history of CVAs continue on Eliquis and statin. his CKD stage 4 was stable. Patient is medically stable will be discharged home. Time Spent with Patient Time attestation: Total time spent providing and/or coordinating discharge services: Discharge coordination time: Greater than 30 minutes Quality: Safe Use of Opioids Does Pt have an Active Cancer Diagnosis on the Problem List?: No Quality: Stroke Does the patient have a stroke diagnosis?: No Physical Exam Vital Signs: Vital Signs: Last Vital Signs Temp 98.1 F 11/07/21 07:37 Pulse 82 11/07/21 07:41 Resp 19 11/07/21 07:41 BP 146/75 H 11/07/21 07:41 Pulse Ox 98 11/07/21 07:41 O2 Del Method 11/07/21 07:41 BMI result Body Mass Index 26.3 General: AO X 3, no acute distress Resp: CTA bilateral, no accessory muscles used CVS: S1,S2,RRR GI: soft, non tender, non distended Neuro: motor grossly intact, alert Psych: appropriate affect, appropriate insight DS: Data Data Completed and Pending Completed studies during hospitalization [Text1]: Procedures Destruction of Bladder, Via Natural or Artificial Opening Endoscopic (04/14/21) Dilation of Bilateral Ureters with Intraluminal Device, Via Natural or Artificial Opening Endoscopic (04/14/21) Fluoroscopy of Kidneys, Ureters and Bladder (04/14/21) Transfusion of Nonautologous Red Blood Cells into Peripheral Vein, Percutaneous Approach (04/14/21) Labs on day of discharge: Laboratory Results - last 24 hr 11/05/21 11/06/21 11/06/21 12:41 12:41 16:04 WBC RBC Hgb Hct MCV MCH MCHC RDW Plt Count MPV Absolute Nucleated RBC Nucleated RBC % (auto) Sodium Potassium Chloride Carbon Dioxide Anion Gap BUN Creatinine Estim Creat Clear Calc Estimated GFR POC Glucose 169 H 156 H Fasting Glucose Calcium Total T3 103 11/06/21 11/07/21 11/07/21 19:28 05:48 05:48 WBC 6.4 RBC 3.81 L Hgb 11.1 L Hct 35.7 L MCV 93.7 MCH 29.1 MCHC 31.1 RDW 16.6 H Plt Count 180 MPV 11.3 Absolute Nucleated RBC 0.000 Nucleated RBC % (auto) 0.0 Sodium 140 Potassium 4.9 Chloride 108 Carbon Dioxide 23 Anion Gap 14 BUN 41 H Creatinine 2.31 H Estim Creat Clear Calc 25.8 Estimated GFR 28 POC Glucose 171 H Fasting Glucose 111 H Calcium 8.7 Total T3 11/07/21 07:41 WBC RBC Hgb Hct MCV MCH MCHC RDW Plt Count MPV Absolute Nucleated RBC Nucleated RBC % (auto) Sodium Potassium Chloride Carbon Dioxide Anion Gap BUN Creatinine Estim Creat Clear Calc Estimated GFR POC Glucose 118 H Fasting Glucose Calcium Total T3 Discharge Plan Discharge Patient Disposition: Home, Self-Care Discharge Diagnosis: hypoglycemia Referrals: Charlene Delgado MD [Primary Care Provider] - 1 Week Discharge Medications: New cefuroxime axetil 250 mg tablet 250 mg PO BID Qty: 10 0RF Continued pioglitazone 45 mg tablet 1 tab PO DAILY atorvastatin 40 mg tablet 1 tab PO BEDTIME isosorbide mononitrate 60 mg tablet extended release 24 hr 60 mg PO DAILY Eliquis 5 mg tablet 5 mg PO BID (DME) pen needle, diabetic [UltiCare Pen Needle] 32 gauge x 5/32 needle See Rx Instructions .ROUTE QID Qty: 50 Rx Instructions: As directed Discontinued Jardiance 25 mg tablet 1 tab PO DAILY Discharge Orders: Discharge Order (Routine); Ordered 11/07/21 Ordered By: Matt Nicole Diet: Diabetic diet Activity on Discharge: As tolerated Stand Alone Forms: Patient Portal Discharge page Care Plan Goals: recovery Health Concerns: hypoglycemia Plan of Treatment: stop jardiance, 5 more days cefuroxime, if better glycemic control needed consider alternative such as metformin Assessment: see above
--- NOTE | 2021-11-07 11:11 | MHC.CM.PN ---
Addendum entered by Cyndi Luis 11/07/21 15:45: CM SPOKE TO PTS DAUGHTER, KATHERINE [phone] AND INFORMED HER OF PTS DISCHARGE SHE PROVIDED PTS TRANSPORT HOME AND WAS PROVIDED WITH PRINTED PRESCRIPTIONS PTS PREFERRED PHARMACY ([facility]) IS CLOSED UNTIL TUESDAY Original Note: PT TO DC HOME TODAY WITH [employer]UMPT[employer] OF [employer] FAMILY TO TRANSPORT
[2021-11-07 11:31] VITALS: BP 172/84; PULSE 87; RESP 20; TEMP 36.6; O2SAT 99
[2021-11-07 11:46] LABS: Glucose, Whole Blood 155 mg/dL (60-115)
== END 2021-11-07 14:45 | disposition home or self-care (01) | DRG 637 ==
LOC: HO.ED 14:46 → HO.EDOVER 15:30 → HO.S3 11-06 10:52
PROVIDERS: Physician Assistant; Admitting Provider Physician Assistant; Emergency Provider Student in an Organized Health Care Education/Training Program; PCP Internal Medicine; Visit Provider Internal Medicine
DX: E11.649 Type 2 diabetes mellitus with hypoglycemia without coma (principal); G93.41 Metabolic encephalopathy; N39.0 Urinary tract infection, site not specified; I12.9 Hypertensive chronic kidney disease with stage 1 through stage 4 chronic kidney disease, or unspecified chronic kidney disease; N18.4 Chronic kidney disease, stage 4 (severe); E11.22 Type 2 diabetes mellitus with diabetic chronic kidney disease; E78.5 Hyperlipidemia, unspecified; I25.10 Atherosclerotic heart disease of native coronary artery without angina pectoris; I48.0 Paroxysmal atrial fibrillation; B96.20 Unspecified Escherichia coli [E. coli] as the cause of diseases classified elsewhere; I25.2 Old myocardial infarction; Z20.822 Contact with and (suspected) exposure to COVID-19; Z87.440 Personal history of urinary (tract) infections; Z86.73 Personal history of transient ischemic attack (TIA), and cerebral infarction without residual deficits; Z88.8 Allergy status to other drugs, medicaments and biological substances; Z79.01 Long term (current) use of anticoagulants; Z79.899 Other long term (current) drug therapy
CPT/HCPCS: 36415; 70450; 70496; 70498; 70551; 71045; 74018; 80048; 80076; 81001; 82947; 83735; 84443; 84480; 84484; 85025; 85027; 85610; 85730; 87086; 87088; 87186; 87635; 93005; 99285; J0696; Q9967

== ENCOUNTER 2022-03-16 10:52 | Outpatient (REF) | payer OTHER, SELFPAY ==
--- NOTE | ~2022-03-16 | US_ITS ---
EXAMINATION: US RETROPERITONEAL LIMITED (RENAL ONLY) CLINICAL INFORMATION: Unspecified hydronephrosis. COMPARISON: X-ray abdomen KUB 11/05/2021. Ultrasound retroperitoneal limited (renal only) 09/23/2021. CT abdomen and pelvis without contrast 05/03/2021. X-ray abdomen KUB 04/18/2021. Renal ultrasound 03/27/2013. TECHNIQUE: Real-time imaging of the kidneys. FINDINGS: RIGHT KIDNEY: 10.1 x 5.9 x 6.2 cm (SAG x AP x TRV). The kidney is normal in size, contour, and echogenicity. Renal cortical thickness is normal. No calculi or focal parenchymal lesions. No hydronephrosis. There are echogenic vascular calcifications. LEFT KIDNEY: 8.9 x 5.0 x 4.8 cm (SAG x AP x TRV). The kidney is normal in size, contour, and echogenicity. Renal cortical thickness is normal. No calculi or focal parenchymal lesions. No hydronephrosis. There are echogenic vascular calcifications. ADDITIONAL FINDINGS: There is an anechoic right suprarenal cyst measuring 1.3 x 1.8 x 2.2 cm. There is a stent visualized in the bladder. The proximal end of the stent is not seen in the left kidney. US/US renal BI IMPRESSION: 1. Bilateral echogenic vascular calcifications. No echogenic stones or hydronephrosis. 2. There is a stent visualized in the bladder. The proximal end of the stent is not seen in the left kidney. 3. There is a right suprarenal cyst measuring 2.2 cm.
== END 2022-03-16 10:53 | disposition home or self-care (01) ==
LOC: HO.US 10:52
PROVIDERS: PCP Internal Medicine
DX: N13.30 Unspecified hydronephrosis (principal)
CPT/HCPCS: 76775

== ENCOUNTER 2022-08-25 09:24 | Outpatient (REF) | payer OTHER, SELFPAY ==
[2022-08-25 10:57] LABS: Hematocrit 34.7 % (42.0-52.0); Hemoglobin 11.1 g/dl (14.0-18.0); Mean Corpuscular Hemoglobin 30.6 pg (27.0-33.0); Mean Corpuscular Volume 95.6 fL (80.0-98.0); Mean Platelet Volume 11.6 fL (9.4-12.4); Platelet Count 172 X10*3/uL (160-400); Red Blood Count 3.63 X10*6/uL (4.60-5.80); Red Cell Distribution Width 13.8 % (11.0-16.0); White Blood Count 6.8 X10*3/uL (4.8-10.8)
[2022-08-25 11:28] LABS: Anion Gap 12 (12-20); Blood Urea Nitrogen 48 mg/dL (9-16); Calcium 9.6 mg/dL (8.4-10.2); Carbon Dioxide 23 mmol/L (22-29); Chloride 106 mmol/L (96-108); Estimated Glomerular Filt Rate 23; Potassium 5.2 mmol/L (3.3-5.1); Sodium 136 mmol/L (135-145)
[2022-08-26 10:43] LABS: Urine Cytology See Pathology rpt
== END 2022-08-25 09:25 | disposition home or self-care (01) ==
LOC: HO.10HDL 09:24
PROVIDERS: Nurse Practitioner Family; Visit Provider Internal Medicine Hypertension Specialist
DX: N39.0 Urinary tract infection, site not specified (principal); R31.9 Hematuria, unspecified; N18.4 Chronic kidney disease, stage 4 (severe); N18.30 Chronic kidney disease, stage 3 unspecified; R30.0 Dysuria; Z96.0 Presence of urogenital implants
CPT/HCPCS: 36415; 51798; 80051; 82310; 82565; 84520; 85027; 87086; 87088; 87186; 88112; 99212

== ENCOUNTER 2022-08-25 10:44 | Outpatient (REF) | payer OTHER, SELFPAY | END 2022-08-25 10:45 | disposition home or self-care (01) | LOC: HO.LNP 10:44 | PROVIDERS: Visit Provider Nurse Practitioner Family | DX: Z13.89 Encounter for screening for other disorder (principal) ==

== ENCOUNTER 2022-08-26 14:16 | Outpatient (REF) | payer OTHER, SELFPAY ==
--- NOTE | ~2022-08-26 | XR_ITS ---
EXAMINATION: XR ABDOMEN KUB CLINICAL INDICATION: Calculus of kidney COMPARISON: KUB 11/05/2021, renal ultrasound 03/16/2022 TECHNIQUE: AP view of the abdomen. FINDINGS: There is an internally dwelling double-J stents with the proximal end overlying the region of the left renal pelvis and the distal end in the bladder. No interval change since the prior study. No stones are seen along the course of the stent. The bowel gas pattern is normal with no evidence of ileus or obstruction. No unusual soft tissue calcifications are noted. The bones are unremarkable. XR/XR KUB IMPRESSION: Left-sided double-J stent remains in good position.
== END 2022-08-26 14:17 | disposition home or self-care (01) ==
LOC: HO.XRAY 14:16
PROVIDERS: PCP Internal Medicine; Visit Provider Nurse Practitioner Family
DX: N20.0 Calculus of kidney (principal)
CPT/HCPCS: 74018

== ENCOUNTER 2022-10-06 10:26 | Emergency (ER) | payer OTHER, SELFPAY ==
--- NOTE | ~2022-10-06 | CT_ITS ---
EXAMINATION: CT ABDOMEN AND PELVIS WITHOUT CONTRAST CLINICAL INFORMATION: Bilateral hydronephrosis with ureteral stent placement. COMPARISON: Ultrasound abdomen 03/16/2022 TECHNIQUE: Multidetector volumetric imaging was performed from the superior aspect of the liver through the pubic symphysis. Sagittal and coronal reformatted images were obtained on the technologist's workstation. This CT examination was performed using dose optimization techniques as appropriate, variously including the following: *Automated exposure control *Adjustment of mA and/or kV according to patient size (this includes techniques or standardized protocols for targeted exams where dose is matched to indication/reason for exam; i.e. extremities or head) *Use of iterative reconstruction technique DLP: 782 mGy-cm FINDINGS: LUNG BASES: There is platelike atelectasis left lung base. The heart size is normal. The heart size is normal. LIVER, GALLBLADDER, AND BILIARY TREE: The liver is normal in size, shape, and attenuation. No focal hepatic lesion or biliary ductal dilatation is present. The gallbladder is not visualized. PANCREAS: The pancreas atrophy but unremarkable SPLEEN: Unremarkable. ADRENAL GLANDS: Unremarkable. KIDNEYS AND URETERS: The kidneys are normal in size, shape, and attenuation. No hydronephrosis, hydroureter, or calculi seen. No perinephric stranding. There is a 2 cm cyst upper pole right kidney. There is a left ureteral stent with its proximal end in the kidney pelvis and distal end in bladder. No radiopaque calculi seen along the course of the left ureter stent. BLADDER: Unremarkable. GASTROINTESTINAL TRACT: There is scattered stool and gas seen in colon without significant distention. The small bowel loops are unremarkable. No free air or free fluid seen. ABDOMINAL WALL: There is a small umbilical hernia containing fat and a small 9 mm nodule. Mild thickening of the abdominal skin is seen, nonspecific image 62/2. LYMPH NODES: Normal. VASCULAR: Unremarkable. PELVIC VISCERA: There is no free fluid. Prostate gland is moderately enlarged with central gland calcification. OSSEOUS STRUCTURES: There is loss of L5-S1, L4-L5 and L1-L2 disc heights with mild ventral spondylosis. No aggressive lytic or sclerotic process seen. CT/CT abdomen pelvis wo IV con IMPRESSION: 1. Left ureteral stent in good position. No radiopaque calculi seen along the course of the left ureter stent. 2. Small cyst upper pole right kidney. 3. Mild constipation. 4. Small umbilical hernia containing fat and a small 9 mm nodule. Fleischner guidelines were followed.
--- NOTE | ~2022-10-06 | XR_ITS ---
EXAMINATION: XR CHEST CLINICAL INFORMATION: Cold, cough. COMPARISON: 11/05/2021 chest radiograph. TECHNIQUE: Frontal view of the chest was obtained. FINDINGS: No significant abnormality is noted involving the heart, lungs, mediastinum, bony thorax or soft tissues. XR/XR chest 1V IMPRESSION: No acute cardiopulmonary process.
[2022-10-06 10:48] VITALS: BP 131/72; PULSE 114; TEMP 36.9; O2SAT 100; BMI 27.8
--- NOTE | 2022-10-06 10:55 | ECG_ITS ---
Test Reason : FATIGUE Blood Pressure : / mmHG Vent. Rate : 109 BPM Atrial Rate : 109 BPM P-R Int : 112 ms QRS Dur : 098 ms QT Int : 322 ms P-R-T Axes : 053 -09 066 degrees QTc Int : 433 ms Sinus tachycardia Otherwise normal ECG When compared with ECG of 01-JUL-2021 17:57, No significant change was found Referred By: Generic ED Physician Electronically Signed By:LUZ RAYMOND
[2022-10-06 11:08] LABS: Basophils Percent Auto 0.3 % (0-2); Eosinophils Absolute Auto 0.1 X10*3/uL (0.0-0.4); Hematocrit 37.6 % (42.0-52.0); Hemoglobin 12.2 g/dl (14.0-18.0); Imm Gran Abs Auto 0.06 X10*3/uL (0.00-0.03); Imm Gran Pct Auto 0.5 % (0.0-0.4); Lymphocytes Absolute Auto 0.4 X10*3/uL (1.2-4.9); Lymphocytes Percent Auto 3.5 % (20-40); MANUAL DIFF FLAG NO; Mean Corpuscular HGB Conc 32.4 g/dl (31.0-36.0); Mean Corpuscular Hemoglobin 30.3 pg (27.0-33.0); Mean Corpuscular Volume 93.5 fL (80.0-98.0); Mean Platelet Volume 10.5 fL (9.4-12.4); Monocytes Absolute Auto 1.1 X10*3/uL (0.1-1.2); Monocytes Percent Auto 9.2 % (2-11); Neutrophils Absolute Auto 10.2 x10*3/uL (2.0-8.3); Neutrophils Percent Auto 85.5 % (45-73); Platelet Count 223 X10*3/uL (160-400); Red Blood Count 4.02 X10*6/uL (4.60-5.80); Red Cell Distribution Width 13.2 % (11.0-16.0); White Blood Count 11.9 X10*3/uL (4.8-10.8)
[2022-10-06 11:28] LABS: Alanine Aminotransferase 14 U/L (0-40); Albumin Level 3.6 g/dL (3.5-5.0); Alkaline Phosphatase 87 U/L (39-117); Anion Gap 17 (12-20); Aspartate Amino Transferase 23 U/L (5-37); Bilirubin Total 0.6 mg/dL (0.0-1.0); Blood Urea Nitrogen 36 mg/dL (9-16); Calcium 9.7 mg/dL (8.4-10.2); Carbon Dioxide 22 mmol/L (22-29); Chloride 107 mmol/L (96-108); Creatinine Clr Calc Pharmacy 18.4; Estimated Glomerular Filt Rate 21; Glucose Random 235 mg/dL (60-115); Potassium 4.7 mmol/L (3.3-5.1); Sodium 141 mmol/L (135-145); Total Protein 7.8 g/dL (6.5-8.0)
[2022-10-06 11:36] LABS: Troponin-I High Sensitivity 22.5 ng/L (<3.5-35.0)
[2022-10-06 13:41] LABS: COVID-19 Test Positive (Negative); IDNOW Serial# 08D9AD1C
[2022-10-06 13:58] LABS: IDNOW Serial# 9DB6401D; Influenza A Negative (Negative); Influenza B2 Negative (Negative)
--- NOTE | 2022-10-06 17:48 | ED.GENADULT ---
HPI - General Adult General Chief complaint: General Medical Stated complaint: sick Time Seen by Provider: 10/06/22 17:48 Source: patient Mode of arrival: ambulatory Limitations: no limitations History of Present Illness HPI narrative: Patient is 77 years old with history of atrial fibrillation on Eliquis hypertension CKD diabetic bilateral ureteric stent for hydronephrosis gram-negative bacteremia and frequent UTI came here as for last 3 days patient is not been feeling lethargic cough got worse today with nausea vomiting started last vomited 1 more prior to arrival no fever no chills no abdominal pain patient did not eat or drink much today and did not urinate much no significant shortness of breath no chest pain Related Data Home Medications Medication Instructions Recorded Confirmed pioglitazone 45 mg tablet 1 tab PO DAILY 01/03/20 08/25/22 atorvastatin 40 mg tablet 1 tab PO BEDTIME 04/14/21 08/25/22 isosorbide mononitrate 60 mg 60 mg PO DAILY 07/17/21 08/25/22 tablet,extended release 24 hr apixaban 5 mg tablet (Eliquis) 5 mg PO BID 10/01/21 08/25/22 pen needle, diabetic 32 gauge x #50 ea 10/01/21 08/25/22/ (UltiCare Pen Needle) clopidogrel 75 mg tablet 75 mg PO QPM 08/25/22 08/25/22 metoprolol succinate 50 mg 50 mg PO QAM 08/25/22 08/25/22 tablet,extended release 24 hr Previous Rx's Medication Instructions Recorded sulfamethoxazole 800 1 tab PO BID 10 days #20 tabs 08/27/22 mg-trimethoprim 160 mg tablet (Bactrim DS) benzonatate 200 mg capsule 200 mg PO TID PRN cough #30 caps 10/06/22 cefpodoxime 200 mg tablet 200 mg PO BID #20 tabs 10/06/22 Allergies Allergy/AdvReac Type Severity Reaction Status Date / Time empagliflozin AdvReac Intermediate reccurent Verified 08/25/22 10:18 [From Jardiance] UTI, hypoglycemia Review of Systems Review of Systems: Yes all other systems are reviewed and are negative [facility] Past Medical History Medical History A-fib Chronic renal failure, stage 4 (severe) Diabetes 1.5, managed as type 2 Glucosuria High cholesterol Hypertension PAF (paroxysmal atrial fibrillation) Surgical History No pertinent past surgical history Family History Family History Other No family history of coronary artery disease Social History Social History Household Members: Family Housing: House Do you presently have visiting nurse or other home services: No (Daughter helps with ADLs) Alcohol intake: never Patient Tobacco Use Status: Never used Tobacco Smoked in Last 30 Days: No e-Cigarette/Vaping Use: Never Used Use of substances other than those prescribed or required for medical reasons: No Advance Directives: Yes Advance Directives on File: Yes Advance Directives Date on File: 04/29/21 service: No Current occupational status: retired Physical Exam ED Vital Signs: Vital Signs - 24 hr 10/06/22 10:48 10/06/22 18:00 10/06/22 19:16 Temperature 98.5 F 99 F Pulse Rate 114 H 112 H 112 H Respiratory Rate 16 18 Blood Pressure 131/72 159/73 H 166/77 H Pulse Oximetry 100 97 98 Oxygen Delivery Method Room Air Room Air Room Air 10/06/22 19:30 Temperature 99.7 F Pulse Rate 110 H Respiratory Rate 16 Blood Pressure 148/73 H Pulse Oximetry 98 Oxygen Delivery Method Room Air BMI result Body Mass Index 27.8 Appearance: Alert. Oriented X3. No acute distress. Eyes: PERRLA, No Nystagmus ENT: Pharynx normal. Oral Mucosa moist Neck: Normal inspection. Neck supple. CVS: Normal heart rate and rhythm. Pulses normal. Respiratory: No respiratory distress. Equal air entry bilateral, no wheezing/rales/rhonchi Abdomen: Soft and nontender. Bowel sounds are present, no mass palpable, no CVA tenderness Skin: Skin warm and dry. Normal skin color. Normal skin turgor. Extremities: No lower extremity edema. No calf tenderness Neuro: Oriented X 3. No motor deficit. Medications Administered Discontinued Medications Generic Name Dose Route Start Last Admin Trade Name Freq PRN Reason Stop Dose Admin Sodium Chloride 1,000 mls @ 999 mls/hr 10/06/22 18:01 10/06/22 18:52 Ns IV 08/02/23 19:01 999 mls/hr .Q1H1M ONE Administration Ceftriaxone Sodium 1 gm/ 50 mls @ 100 mls/hr 10/06/22 18:05 10/06/22 19:22 Sodium Chloride IV 10/06/22 18:34 100 mls/hr ONCE ONE Administration Ondansetron HCl 4 mg 10/06/22 18:01 10/06/22 18:50 Ondansetron Hcl 4 Mg/2 Ml Vial IVPUSH 10/06/22 18:02 4 mg ONCE ONE Administration Medical Decision Making Medical Decision Making [place] Narrative: Patient labs workup showed leukocytosis with CKD COVID-19 was positive patient already received COVID vaccine and also had COVID in past denies any shortness of breath saturating 100% at room air chest x-ray negative for any infiltrate patient does have a history of Gram-negative bacteremia and UTIs is not able to urinate much all day today. Will get urine culture IV fluids blood cultures and lactic acid to rule out any bacteremia. Will give IV fluids and Rocephin meanwhile Lab Data [place] Lab Attestation statement: I reviewed the patient's lab results. 10/06/22 11:03 10/06/22 11:03 Labs: Lab Results 10/06/22 10/06/22 10/06/22 Range/Units 11:03 11:03 11:03 WBC 11.9 H (4.8-10.8) X10*3/uL RBC 4.02 L (4.60-5.80) X10*6/uL Hgb 12.2 L (14.0-18.0) g/dl Hct 37.6 L (42.0-52.0) % MCV 93.5 (80.0-98.0) fL MCH 30.3 (27.0-33.0) pg MCHC 32.4 (31.0-36.0) g/dl RDW 13.2 (11.0-16.0) % Plt Count 223 D (160-400) X10*3/uL MPV 10.5 (9.4-12.4) fL Immature Gran % (Auto) 0.5 H (0.0-0.4) % Neut % (Auto) 85.5 H (45-73) % Lymph % (Auto) 3.5 L (20-40) % [place] % (Auto) 9.2 (2-11) % Eos % (Auto) 1.0 (0-4) % Baso % (Auto) 0.3 (0-2) % Lymph # (Auto) 0.4 L (1.2-4.9) X10*3/uL [place] # (Auto) 1.1 (0.1-1.2) X10*3/uL Eos # (Auto) 0.1 (0.0-0.4) X10*3/uL Baso # (Auto) 0.0 (0.0-0.2) X10*3/uL Abs Immat Gran (auto) 0.06 H (0.00-0.03) X10*3/uL Absolute Neuts (auto) 10.2 H (2.0-8.3) x10*3/uL Absolute Nucleated RBC 0.000 (0.0-0.012) X10*3/uL Nucleated RBC % (auto) 0.0 (0.0-0.2) /100WBC Sodium 141 (135-145) mmol/L Potassium 4.7 (3.3-5.1) mmol/L Chloride 107 (96-108) mmol/L Carbon Dioxide 22 (22-29) mmol/L Anion Gap 17 (12-20) BUN 36 H (9-16) mg/dL Creatinine 2.90 H (0.5-1.4) mg/dL Estim Creat Clear Calc 18.4 Estimated GFR 21 Random Glucose 235 H (60-115) mg/dL Lactic Acid (0.5-2.0) mmol/L Calcium 9.7 (8.4-10.2) mg/dL Total Bilirubin 0.6 (0.0-1.0) mg/dL AST 23 (5-37) U/L ALT 14 (0-40) U/L Alkaline Phosphatase 87 (39-117) U/L Troponin I High Sens 22.5 (<3.5-35.0) ng/L Total Protein 7.8 (6.5-8.0) g/dL Albumin 3.6 (3.5-5.0) g/dL Urine Color Urine Appearance Urine pH (5.0-9.0) Ur Specific [place] (1.005-1.025) Urine Protein (Neg-Trace) mg/dL Urine Glucose (UA) (Negative) mg/dL Urine Ketones (Negative) mg/dL Urine Blood (Negative) Urine Nitrite (Negative) Ur Leukocyte Esterase (Negative) Urine RBC (0-2) /HPF Urine WBC (0-5) /HPF Ur Squamous Epith Cells (0-2) /HPF Urine Bacteria (None Seen) Hyaline Casts (0-2) /LPF COVID-19 (GENE) (Negative) COVID-19 Clin Com Influenza Type A (BENJAMÍN) (Negative) Influenza Type B (BENJAMÍN) (Negative) Influenza A & B Note 10/06/22 10/06/22 10/06/22 Range/Units 13:17 13:17 19:14 WBC (4.8-10.8) X10*3/uL RBC (4.60-5.80) X10*6/uL Hgb (14.0-18.0) g/dl Hct (42.0-52.0) % MCV (80.0-98.0) fL MCH (27.0-33.0) pg MCHC (31.0-36.0) g/dl RDW (11.0-16.0) % Plt Count (160-400) X10*3/uL MPV (9.4-12.4) fL Immature Gran % (Auto) (0.0-0.4) % Neut % (Auto) (45-73) % Lymph % (Auto) (20-40) % [place] % (Auto) (2-11) % Eos % (Auto) (0-4) % Baso % (Auto) (0-2) % Lymph # (Auto) (1.2-4.9) X10*3/uL [place] # (Auto) (0.1-1.2) X10*3/uL Eos # (Auto) (0.0-0.4) X10*3/uL Baso # (Auto) (0.0-0.2) X10*3/uL Abs Immat Gran (auto) (0.00-0.03) X10*3/uL Absolute Neuts (auto) (2.0-8.3) x10*3/uL Absolute Nucleated RBC (0.0-0.012) X10*3/uL Nucleated RBC % (auto) (0.0-0.2) /100WBC Sodium (135-145) mmol/L Potassium (3.3-5.1) mmol/L Chloride (96-108) mmol/L Carbon Dioxide (22-29) mmol/L Anion Gap (12-20) BUN (9-16) mg/dL Creatinine (0.5-1.4) mg/dL Estim Creat Clear Calc Estimated GFR Random Glucose (60-115) mg/dL Lactic Acid (0.5-2.0) mmol/L Calcium (8.4-10.2) mg/dL Total Bilirubin (0.0-1.0) mg/dL AST (5-37) U/L ALT (0-40) U/L Alkaline Phosphatase (39-117) U/L Troponin I High Sens (<3.5-35.0) ng/L Total Protein (6.5-8.0) g/dL Albumin (3.5-5.0) g/dL Urine Color Yellow Urine Appearance Cloudy Urine pH 5.5 (5.0-9.0) Ur Specific [place] 1.015 (1.005-1.025) Urine Protein 300 (3+) H (Neg-Trace) mg/dL Urine Glucose (UA) 500 H (Negative) mg/dL Urine Ketones Negative (Negative) mg/dL Urine Blood Large (3+) H (Negative) Urine Nitrite Negative (Negative) Ur Leukocyte Esterase Moderate (2+) H (Negative) Urine RBC >20 H (0-2) /HPF Urine WBC >50 H (0-5) /HPF Ur Squamous Epith Cells 0-2 (0-2) /HPF Urine Bacteria 4+ (None Seen) Hyaline Casts 0-2 (0-2) /LPF COVID-19 (GENE) Positive A (Negative) COVID-19 Clin Com See Note Influenza Type A (BENJAMÍN) Negative (Negative) Influenza Type B (BENJAMÍN) Negative (Negative) Influenza A & B Note See Note 10/06/22 10/06/22 Range/Units 19:25 19:25 WBC (4.8-10.8) X10*3/uL RBC (4.60-5.80) X10*6/uL Hgb (14.0-18.0) g/dl Hct (42.0-52.0) % MCV (80.0-98.0) fL MCH (27.0-33.0) pg MCHC (31.0-36.0) g/dl RDW (11.0-16.0) % Plt Count (160-400) X10*3/uL MPV (9.4-12.4) fL Immature Gran % (Auto) (0.0-0.4) % Neut % (Auto) (45-73) % Lymph % (Auto) (20-40) % [place] % (Auto) (2-11) % Eos % (Auto) (0-4) % Baso % (Auto) (0-2) % Lymph # (Auto) (1.2-4.9) X10*3/uL [place] # (Auto) (0.1-1.2) X10*3/uL Eos # (Auto) (0.0-0.4) X10*3/uL Baso # (Auto) (0.0-0.2) X10*3/uL Abs Immat Gran (auto) (0.00-0.03) X10*3/uL Absolute Neuts (auto) (2.0-8.3) x10*3/uL Absolute Nucleated RBC (0.0-0.012) X10*3/uL Nucleated RBC % (auto) (0.0-0.2) /100WBC Sodium (135-145) mmol/L Potassium (3.3-5.1) mmol/L Chloride (96-108) mmol/L Carbon Dioxide (22-29) mmol/L Anion Gap (12-20) BUN (9-16) mg/dL Creatinine (0.5-1.4) mg/dL Estim Creat Clear Calc Estimated GFR Random Glucose (60-115) mg/dL Lactic Acid 1.2 (0.5-2.0) mmol/L Calcium (8.4-10.2) mg/dL Total Bilirubin (0.0-1.0) mg/dL AST (5-37) U/L ALT (0-40) U/L Alkaline Phosphatase (39-117) U/L Troponin I High Sens 18.9 (<3.5-35.0) ng/L Total Protein (6.5-8.0) g/dL Albumin (3.5-5.0) g/dL Urine Color Urine Appearance Urine pH (5.0-9.0) Ur Specific [place] (1.005-1.025) Urine Protein (Neg-Trace) mg/dL Urine Glucose (UA) (Negative) mg/dL Urine Ketones (Negative) mg/dL Urine Blood (Negative) Urine Nitrite (Negative) Ur Leukocyte Esterase (Negative) Urine RBC (0-2) /HPF Urine WBC (0-5) /HPF Ur Squamous Epith Cells (0-2) /HPF Urine Bacteria (None Seen) Hyaline Casts (0-2) /LPF COVID-19 (GENE) (Negative) COVID-19 Clin Com Influenza Type A (BEJNAMÍN) (Negative) Influenza Type B (BENJAMÍN) (Negative) Influenza A & B Note Independent Interpretation I performed an independent interpretation of an: EKG Interpretation: Sinus tachycardia heart rate 109 beats per minute normal interval normal axis no acute ST-T no acute ischemia Radiology Impression Discussion of test interpretation with radiology: I have reviewed the radiologist's reading. Radiologist Impression: CT/CT abdomen pelvis wo IV con IMPRESSION: 1.? Left ureteral stent in good position. No radiopaque calculi seen along the course of the left ureter stent. 2.? Small cyst upper pole right kidney. 3.? Mild constipation. 4.? Small umbilical hernia containing fat and a small 9 mm nodule. ? Discharge Plan Discharge Clinical Impression: UTI (urinary tract infection), COVID-19 Patient Disposition: Home, Self-Care Instructions: Urinary Tract Infection in Men (ED), COVID-19 (Coronavirus Disease 2019) (ED) Additional Instructions: Social distancing as advised Take antibiotics as prescribed for urine tract infection Drink plenty of fluids Report to the ER if having any shortness of breath Cough drops as prescribed Prescriptions: New cefpodoxime 200 mg tablet 200 mg PO BID Qty: 20 0RF Rx Instructions: must administer with a meal/food benzonatate 200 mg capsule 200 mg PO TID PRN (Reason: cough) Qty: 30 0RF No Action sulfamethoxazole-trimethoprim [Bactrim DS] 800-160 mg tablet 1 tab PO BID 10 Days Qty: 20 0RF pioglitazone 45 mg tablet 1 tab PO DAILY atorvastatin 40 mg tablet 1 tab PO BEDTIME isosorbide mononitrate 60 mg tablet extended release 24 hr 60 mg PO DAILY Eliquis 5 mg tablet 5 mg PO BID (DME) pen needle, diabetic [UltiCare Pen Needle] 32 gauge x needle See Rx Instructions .ROUTE QID Qty: 50 Rx Instructions: As directed metoprolol succinate 50 mg tablet extended release 24 hr 50 mg PO QAM clopidogrel 75 mg tablet 75 mg PO QPM
[2022-10-06 18:00] VITALS: BP 159/73; PULSE 112; RESP 16; TEMP 37.2; O2SAT 97
--- NOTE | 2022-10-06 18:28 | PC.NURSE ---
pt back from radiology.
[2022-10-06] MEDS: ondansetron HCL 4 MG/2 ML VIAL IVPUSH (18:50)
[2022-10-06] MEDS: 0.9 % Sodium Chloride 1,000 ML 999 ML IV (18:52)
--- NOTE | 2022-10-06 18:55 | PC.NURSE ---
rn kristy x2 blood culture set and placed new piv. tech in process of attempting bc's/labs. obtained urine- sending urine.
--- NOTE | 2022-10-06 19:15 | PC.NURSE ---
blood cultures sent
[2022-10-06 19:16] VITALS: BP 166/77; PULSE 112; RESP 18; O2SAT 98
[2022-10-06] MEDS: cefTRIAXone sodium 1 GM in 0.9 % Sodium Chloride 50 ML IV (19:22)
[2022-10-06 19:30] VITALS: BP 148/73; PULSE 110; RESP 16; TEMP 37.6; O2SAT 98
[2022-10-06 19:37] LABS: Appearance Urine Cloudy; Color Urine Yellow; Glucose Urine UA 500 mg/dL (Negative); Leukocyte Esterase Urine Moderate (2+) (Negative); Nitrite Urine Negative (Negative); PH 5.5 (5.0-9.0); Specific Gravity - Urine 1.015 (1.005-1.025); UMIC TRIGGER UACC YES; Urine Blood Large (3+) (Negative); Urine Ketones Negative (Negative); Urine Protein 300 (3+) mg/dL (Neg-Trace)
[2022-10-06 19:41] LABS: Lactic Acid 1.2 mmol/L (0.5-2.0)
[2022-10-06 19:52] LABS: Troponin-I High Sensitivity 18.9 ng/L (<3.5-35.0)
[2022-10-06 19:54] LABS: Bacteria Urine 4+ (None Seen); Hyaline Casts Urine 0-2 /LPF (0-2); RBC Urine >20 /HPF (0-2); Squamous Epithelial Cell Urine 0-2 /HPF (0-2); UACC Culture Trigger YES; WBC Urine >50 /HPF (0-5)
== END 2022-10-06 21:44 | disposition home or self-care (01) ==
PROVIDERS: Physician Assistant Medical; Emergency Provider Internal Medicine
DX: N39.0 Urinary tract infection, site not specified (principal); U07.1 COVID-19; R10.2 Pelvic and perineal pain; R00.0 Tachycardia, unspecified; Z79.899 Other long term (current) drug therapy
CPT/HCPCS: 36415; 71045; 74176; 80053; 81001; 83605; 84484; 85025; 87040; 87077; 87086; 87088; 87186; 87205; 87502; 87635; 93005; 96361; 96374; 96375; 99284; 99285; J0696; J2405

== ENCOUNTER → 2022-10-06 10:55 | Outpatient (BNV) | payer OTHER, SELFPAY | PROVIDERS: Emergency Provider Internal Medicine; Visit Provider Internal Medicine | DX: R00.0 Tachycardia, unspecified (principal) | CPT/HCPCS: 93010 ==

== ENCOUNTER 2022-10-07 17:17 | Inpatient (IN) | payer OTHER, SELFPAY ==
--- NOTE | ~2022-10-07 | FL_ITS ---
EXAMINATION: XR FLUOROSCOPY WITH IMAGES CLINICAL INFORMATION: Cystoscopy stent removal, visualization. COMPARISON: CT 10/06/2022. TECHNIQUE: Fluoroscopy Supervised By: Dr. Camden Winchester. Fluoroscopy Time: 1.5 seconds. Cumulative Dose: 0.39 mGy. DAP: Gycm2. Images: 1. FINDINGS: Single frontal view of the pelvis. Left internal ureteral stent no longer seen. FL/FL guidance in OR IMPRESSION: Fluoroscopic guidance for left ureteral stent removal.
--- NOTE | 2022-10-07 17:22 | ED.GENADULT ---
HPI - General Adult General Chief complaint: Recheck/Abnormal Lab/Rx Stated complaint: COVID +/abnormal labs? Time Seen by Provider: 10/07/22 17:50 Source: patient Mode of arrival: ambulatory Limitations: no limitations History of Present Illness HPI narrative: Patient is 77 years old with history of atrial fibrillation on Eliquis hypertension CKD diabetic bilateral ureteric stent for hydronephrosis, status post right ureteric stent removed, gram-negative bacteremia and frequent UTI came here as for last 3 days patient is not been feeling lethargic cough got worse today with nausea vomiting started 2 nights ago. Patient was seen here yesterday workup showed COVID positive with UTI blood cultures were done patient was given IV Rocephin patient went home continued to be weak today blood culture came positive for Gram-negative bacteremia patient was called back to be admitted for IV antibiotics previously patient had E E coli bacteremia was in 04/28 Related Data Home Medications Medication Instructions Recorded Confirmed pioglitazone 45 mg tablet 1 tab PO DAILY 01/03/20 10/07/22 atorvastatin 40 mg tablet 1 tab PO BEDTIME 04/14/21 10/07/22 isosorbide mononitrate 60 mg 60 mg PO DAILY 07/17/21 10/07/22 tablet,extended release 24 hr apixaban 5 mg tablet (Eliquis) 5 mg PO BID 10/01/21 10/07/22 pen needle, diabetic 32 gauge x #50 ea 10/01/21 08/25/22 (UltiCare Pen Needle) clopidogrel 75 mg tablet 75 mg PO BEDTIME 08/25/22 10/07/22 metoprolol succinate 50 mg 50 mg PO DAILY 08/25/22 10/07/22 tablet,extended release 24 hr dulaglutide 0.75 mg/0.5 mL 0.75 mg subcut QWEEK 10/07/22 10/07/22 subcutaneous [facility] pantoprazole 40 mg tablet,delayed 40 mg PO DAILY@0630 10/07/22 10/07/22 release Allergies Allergy/AdvReac Type Severity Reaction Status Date / Time empagliflozin AdvReac Intermediate reccurent Verified 10/07/22 17:22 [From Kwabena] UTI, hypoglycemia Review of Systems Review of Systems: Yes all other systems are reviewed and are negative PMFSH Past Medical History Medical History A-fib Chronic renal failure, stage 4 (severe) Diabetes 1.5, managed as type 2 Glucosuria High cholesterol Hypertension PAF (paroxysmal atrial fibrillation) Surgical History No pertinent past surgical history Family History Family History Other No family history of coronary artery disease Social History Social History Household Members: Family Housing: House Do you presently have visiting nurse or other home services: Yes Alcohol intake: never Patient Tobacco Use Status: Never used Tobacco Smoked in Last 30 Days: No e-Cigarette/Vaping Use: Never Used Use of substances other than those prescribed or required for medical reasons: No Currently Displaying Signs/Symptoms of Drug Intoxication Withdrawal: No Have you been hit, kicked, punched, or otherwise hurt by someone within the past year? If so, by whom?: No Do you feel safe in your current relationship?: Yes Is there a partner from a previous relationship who is making you feel unsafe now?: No Are you made to feel afraid or neglected: No Advance Directives: Yes Advance Directives on File: Yes Advance Directives Date on File: 04/29/21 Do you have thoughts of harming others: None Do you have a plan to hurt others: No Plan Recently lost weight without trying: No Nutrition Risks: No Nutritional Risk service: No Current occupational status: retired Physical Exam ED Vital Signs: Vital Signs - 24 hr 10/07/22 17:23 Temperature 96.8 F Pulse Rate 102 H Respiratory Rate 18 Blood Pressure 140/75 H Pulse Oximetry 100 Oxygen Delivery Method Room Air BMI result Body Mass Index 28.8 Appearance: Alert. Oriented X3. No acute distress. Eyes: PERRLA, No Nystagmus ENT: Pharynx normal. Oral Mucosa moist Neck: Normal inspection. Neck supple. CVS: Normal heart rate and rhythm. Pulses normal. Respiratory: No respiratory distress. Equal air entry bilateral, no wheezing/rales/rhonchi Abdomen: Soft and nontender. Bowel sounds are present, no mass palpable, no CVA tenderness Skin: Skin warm and dry. Normal skin color. Normal skin turgor. Extremities: No lower extremity edema. No calf tenderness Neuro: Oriented X 3. No motor deficit. No sensory deficit.No cerebellar signs , cranial nerves II-XII intact Course Course Course Narrative: This is a rapid medical exam: Additional HPI, ROS, PE not included below will be deferred to primary provider. Patient is a 77-year-old male with history of gram negative bacteremia, known Covid infection, and UTI, seen in this ED yesterday, called back by JACOB Gomez earlier today for 2/2 blood cultures positive for gram negative rods. Patient denies current pain. Has been able to eat/drink today. States he feels better today than yesterday. Plan: repeat cultures, lactic, CBC, CMP, UA Medications Administered Generic Name Dose Route Start Last Admin Trade Name Freq PRN Reason Stop Dose Admin Insulin Glargine 15 unit 10/07/22 21:55 10/07/22 22:57 Insulin Glargine,Hum.Rec.Anlog 100 Unit/Ml 10 Ml Vial SUBCUT 15 unit BEDTIME RADHA Administration Insulin Human Lispro 0 unit 10/07/22 21:00 10/08/22 11:22 Insulin Lispro 100 Unit/Ml 3 Ml Vial SUBCUT Not Given QIDACHS RADHA Protocol Isosorbide Mononitrate 60 mg 10/08/22 09:00 10/08/22 09:32 Isosorbide Mononitrate 60 Mg Tab.Er.24h PO 60 mg DAILY RADHA Administration Protocol Metoprolol Succinate 50 mg 10/08/22 09:00 10/08/22 09:33 Metoprolol Succinate Er 50 Mg Tab.Er.24h PO 50 mg DAILY RADHA Administration Protocol Omeprazole 20 mg 10/08/22 06:30 10/08/22 05:29 Omeprazole 20 Mg Capsule. PO 20 mg DAILY@0630 RADHA Administration Pioglitazone HCl 45 mg 10/08/22 09:00 10/08/22 09:32 Pioglitazone Hcl 45 Mg Tablet PO 45 mg DAILY RADHA Administration Sodium Chloride 3 ml 10/08/22 00:00 10/08/22 09:32 0.9 % Sodium Chloride Flush 3 Ml Syringe IVFLUSH 3 ml QSHIFT RADHA Administration Discontinued Medications Generic Name Dose Route Start Last Admin Trade Name Freq PRN Reason Stop Dose Admin Sodium Chloride 1,000 mls @ 999 mls/hr 10/07/22 17:52 10/07/22 21:02 Ns IV 10/07/22 18:52 Infused .Q1H1M ONE Infusion Ceftriaxone Sodium 2 gm/ 50 mls @ 100 mls/hr 10/07/22 18:46 10/07/22 19:55 Sodium Chloride IV 10/07/22 19:15 Infused ONCE ONE Infusion Medical Decision Making Medical Decision Making [facility] Narrative: Patient diabetic with COVID-19 with gram-negative with UTI will admit patient for IV antibiotics Differential Diagnosis Differential Diagnoses: The differential diagnosis associated with the presentation includes Bacteremia/sepsis/COVID-19/weakness Consult Healthcare Provider Management of the patient was discussed with: Hospitalist Lab Data [facility] Lab Attestation statement: I reviewed the patient's lab results. 10/07/22 18:10 10/07/22 18:10 Labs: Lab Results 10/07/22 10/07/22 10/07/22 Range/Units 18:08 18:10 18:10 WBC 13.0 H (4.8-10.8) X10*3/uL RBC 3.44 L (4.60-5.80) X10*6/uL Hgb 10.4 L (14.0-18.0) g/dl Hct 33.4 L (42.0-52.0) % MCV 97.1 (80.0-98.0) fL MCH 30.2 (27.0-33.0) pg MCHC 31.1 (31.0-36.0) g/dl RDW 13.2 (11.0-16.0) % Plt Count 216 (160-400) X10*3/uL MPV 11.2 (9.4-12.4) fL Immature Gran % (Auto) 0.5 H (0.0-0.4) % Neut % (Auto) 80.0 H (45-73) % Lymph % (Auto) 7.9 L (20-40) % [place] % (Auto) 10.8 (2-11) % Eos % (Auto) 0.5 (0-4) % Baso % (Auto) 0.3 (0-2) % Lymph # (Auto) 1.0 L (1.2-4.9) X10*3/uL [place] # (Auto) 1.4 H (0.1-1.2) X10*3/uL Eos # (Auto) 0.1 (0.0-0.4) X10*3/uL Baso # (Auto) 0.0 (0.0-0.2) X10*3/uL Abs Immat Gran (auto) 0.06 H (0.00-0.03) X10*3/uL Absolute Neuts (auto) 10.4 H (2.0-8.3) x10*3/uL Absolute Nucleated RBC 0.000 (0.0-0.012) X10*3/uL Nucleated RBC % (auto) 0.0 (0.0-0.2) /100WBC Sodium 137 (135-145) mmol/L Potassium 4.6 (3.3-5.1) mmol/L Chloride 104 (96-108) mmol/L Carbon Dioxide 22 (22-29) mmol/L Anion Gap 16 (12-20) BUN 46 H (9-16) mg/dL Creatinine 3.21 H (0.5-1.4) mg/dL Estim Creat Clear Calc 16.9 Estimated GFR 19 Random Glucose 381 H* (60-115) mg/dL Lactic Acid 2.8 H* (0.5-2.0) mmol/L Calcium 9.1 D (8.4-10.2) mg/dL Total Bilirubin 0.5 (0.0-1.0) mg/dL AST 28 (5-37) U/L ALT 20 (0-40) U/L Alkaline Phosphatase 90 (39-117) U/L Total Protein 7.2 (6.5-8.0) g/dL Albumin 3.3 L (3.5-5.0) g/dL Discharge Plan Discharge Clinical Impression: COVID-19, Bacteremia due to Gram-negative bacteria Patient Disposition: Admitted As Inpatient Interventions: Admission Worksheet (ED) Last Done: 10/07/22 21:03 Discharge Date/Time: 10/07/22 21:04
[2022-10-07 17:23] VITALS: BP 140/75; PULSE 102; RESP 18; TEMP 36; O2SAT 100; BMI 28.8
[2022-10-07 18:20] LABS: MANUAL DIFF FLAG NO
[2022-10-07 18:22] LABS: Basophils Percent Auto 0.3 % (0-2); Eosinophils Absolute Auto 0.1 X10*3/uL (0.0-0.4); Eosinophils Percent Auto 0.5 % (0-4); Hematocrit 33.4 % (42.0-52.0); Hemoglobin 10.4 g/dl (14.0-18.0); Imm Gran Abs Auto 0.06 X10*3/uL (0.00-0.03); Imm Gran Pct Auto 0.5 % (0.0-0.4); Lymphocytes Percent Auto 7.9 % (20-40); Mean Corpuscular HGB Conc 31.1 g/dl (31.0-36.0); Mean Corpuscular Hemoglobin 30.2 pg (27.0-33.0); Mean Corpuscular Volume 97.1 fL (80.0-98.0); Mean Platelet Volume 11.2 fL (9.4-12.4); Monocytes Absolute Auto 1.4 X10*3/uL (0.1-1.2); Monocytes Percent Auto 10.8 % (2-11); Neutrophils Absolute Auto 10.4 x10*3/uL (2.0-8.3); Platelet Count 216 X10*3/uL (160-400); Red Blood Count 3.44 X10*6/uL (4.60-5.80); Red Cell Distribution Width 13.2 % (11.0-16.0)
--- NOTE | 2022-10-07 18:27 | PM.IMHP ---
History of Present Illness Date of Service: 10/07/22 Attending physician on admission: Maryse Howard Chief Complaint: GNR bacteremia Th. History was obtained with the assistance of a medical interpreter a as well as from his daughter at the bedside. He was seen in the emergency department 10/06 for increasing lethargy, and vomiting diagnosed to UTI as well as COVID-19 and was discharged home with cefpodoxime. His blood cultures returned positive and he was asked to return to the emergency department for admission. He reports ongoing ?difficulty urinating?, chills, vomiting as well as an intermittent dry cough. He denies any shortness of breath, denies any recent sick contacts. He is vaccinated against COVID-19 and has had previous COVID-19 infection. CBC, BMP are pending at the time of admission. CT scan of the abdomen and pelvis from yesterday's emergency room visit shows left ureteral stent in good position. No radiopaque calculi seen. He received IV fluid and a dose of IV ceftriaxone and the decision was made to admit him for further management of Gram-negative sherrell bacteremia Review of Systems Review of Systems: Yes all other systems are reviewed and are negative Constitutional: Constitutional: Reports chills and Denies fever(s) ENT: Denies dizziness Cardiovascular: Cardiovascular: Denies chest pain, Denies palpitations and Denies dyspnea Respiratory: Respiratory: Reports cough and Denies dyspnea Gastrointestinal: Gastrointestinal: Denies abdominal pain, Denies diarrhea and Reports vomiting Neurologic: Denies dizziness Endocrine: Endocrine: Denies palpitations [facility] Medical History A-fib Chronic renal failure, stage 4 (severe) Diabetes 1.5, managed as type 2 Glucosuria High cholesterol Hypertension PAF (paroxysmal atrial fibrillation) Family History Other No family history of coronary artery disease Surgical History No pertinent past surgical history Social History Household Members: Family Housing: House Do you presently have visiting nurse or other home services: No (Daughter helps with ADLs) Alcohol intake: never Patient Tobacco Use Status: Never used Tobacco e-Cigarette/Vaping Use: Never Used Advance Directives: Yes Advance Directives on File: Yes Advance Directives Date on File: 04/29/21 service: No Current occupational status: retired Meds Allergies Allergy/AdvReac Type Severity Reaction Status Date / Time empagliflozin AdvReac Intermediate reccurent Verified 10/07/22 17:22 [From Jardiance] UTI, hypoglycemia Active Medications: Current Medications Sodium Chloride (Ns) 1,000 mls @ 999 mls/hr IV .Q1H1M ONE Stop: 10/07/22 18:52 Pharmacy Consult (Consult Rx Perform Med Rec) 1 each MISCELLANE ONCE PRN PRN Reason: Consult order Home Medications Medication Instructions Recorded Confirmed Last Taken Type pioglitazone 45 mg tablet 1 tab PO DAILY 01/03/20 08/25/22 Unknown History atorvastatin 40 mg tablet 1 tab PO BEDTIME 04/14/21 08/25/22 Unknown History isosorbide mononitrate 60 mg 60 mg PO DAILY 07/17/21 08/25/22 Unknown History tablet,extended release 24 hr apixaban 5 mg tablet (Eliquis) 5 mg PO BID 10/01/21 08/25/22 Unknown History pen needle, diabetic 32 gauge x #50 ea 10/01/21 08/25/22 Unknown History (UltiCare Pen Needle) clopidogrel 75 mg tablet 75 mg PO QPM 08/25/22 08/25/22 Unknown History metoprolol succinate 50 mg 50 mg PO QAM 08/25/22 08/25/22 Unknown History tablet,extended release 24 hr Physical Exam Vital Signs and Narrative: Vital Signs: Last Vital Signs Temp 96.8 F 10/07/22 17:23 Pulse 102 H 10/07/22 17:23 Resp 18 10/07/22 17:23 BP 140/75 H 10/07/22 17:23 Pulse Ox 100 10/07/22 17:23 O2 Del Method Room Air 10/07/22 17:23 BMI result Body Mass Index 28.8 Const: General: cooperative, comfortable, no acute distress, alert and awake Nutritional Appearance: average body habitus Resp: Effort & Inspection: normal respiratory effort, able to speak in complete sentences, no respiratory distress and no use of accessory muscles Cardio: Rate: regular rate Heart sounds: S1 normal heart sound present and S2 normal heart sound present GI: Inspection: No distended Palpation (GI): Soft to palpation and nontender Neuro: General: moves all extremities Extrem: General: Yes no pedal edema Results Labs 10/07/22 18:10 10/07/22 18:10 Labs: Laboratory Results - last 24 hr 10/07/22 18:10 MCV 97.1 MCH 30.2 MCHC 31.1 RDW 13.2 Plt Count 216 MPV 11.2 Immature Gran % (Auto) 0.5 H Neut % (Auto) 80.0 H Lymph % (Auto) 7.9 L [place] % (Auto) 10.8 Eos % (Auto) 0.5 Baso % (Auto) 0.3 Lymph # (Auto) 1.0 L [place] # (Auto) 1.4 H Eos # (Auto) 0.1 Baso # (Auto) 0.0 Abs Immat Gran (auto) 0.06 H Absolute Neuts (auto) 10.4 H Absolute Nucleated RBC 0.000 Nucleated RBC % (auto) 0.0 Assessment and Plan (1) COVID-19: Status: Acute (2) UTI (urinary tract infection): Status: Acute Plan This is a 76 year old male with history significant for HLD, afib on eliquis, HTN, VT, ckd stage 4, prior CVA on plaxis, non-insulin dependent diabetes, bilateral ureteric stents placed for hydronephrosis who was called to return to emergency department after his blood cultures grew Gram-negative rods Sepsis secondary to UTI/Gram-negative sherrell bacteremia Meet sepsis criteria with leukocytosis, tachycardia Lactic acid pending Blood cultures drawn 10/06 growing Gram-negative rods, repeat blood cultures pending previous culture e.coli - will treat with IV ceftraixone left stent placed 04/29 - still present on repeat CT abdomen COVID 19 infection cxr negative, no hypoxia monitor respiratory status closely isolation precautions DM SSI, POCs, ADA diet paroxysmal atrial fibrillation hold eliquis for possible need for stent placement Normocytic anemia H/H at baseline Above transfusion threshold CKD4 chemistry pending, but SCr from 10/06 renal function at baseline follow renal function closely med rec pending at the time of admission chemistry pending at the time of admission dvt ppx - mechanical devices due to possible need for stent removal. will hold eliquis code status - full code HCP - Daughter attending dr howard Given sepsis/bacteremia patient will likely require 2 midnight stay in the hospital for IV antibiotics on an close monitoring for decompensation of respiratory status secondary to acute COVID-19 infection. Time Spent With Patient Time: Total time managing care of this patient today ____ minutes. Quality Stroke Does the patient have a stroke diagnosis?: No VTE Prior VTE?: No VTE Risk Level:: Medical - moderate - high VTE Device Contraindication: N/A - Device Ordered VTE Drug Contraindication: N/A - Med Ordered
[2022-10-07 18:56] LABS: Alanine Aminotransferase 20 U/L (0-40); Albumin Level 3.3 g/dL (3.5-5.0); Alkaline Phosphatase 90 U/L (39-117); Anion Gap 16 (12-20); Aspartate Amino Transferase 28 U/L (5-37); Bilirubin Total 0.5 mg/dL (0.0-1.0); Blood Urea Nitrogen 46 mg/dL (9-16); Calcium 9.1 mg/dL (8.4-10.2); Carbon Dioxide 22 mmol/L (22-29); Chloride 104 mmol/L (96-108); Creatinine Clr Calc Pharmacy 16.9; Estimated Glomerular Filt Rate 19; Glucose Random 381 mg/dL (60-115); Potassium 4.6 mmol/L (3.3-5.1); Sodium 137 mmol/L (135-145); Total Protein 7.2 g/dL (6.5-8.0)
[2022-10-07 18:56] LABS: Lactic Acid 2.8 mmol/L (0.5-2.0)
[2022-10-07 19:11] VITALS: BP 152/77; PULSE 104; RESP 20; TEMP 37; O2SAT 96
[2022-10-07] MEDS: 0.9 % Sodium Chloride 1,000 ML 999 ML IV (19:18)
[2022-10-07] MEDS: cefTRIAXone sodium 2 GM in 0.9 % Sodium Chloride 50 ML IV (19:19)
--- NOTE | 2022-10-07 19:52 | PC.NURSE ---
Spoke with ROGER Brown who stated pt cannot come upstairs yet. Unit does not have an airborne precaution room ready at this time. RN stated she will call back when they are ready.
[2022-10-07 20:19] LABS: Reflex Lactate? Lactic Acid Added
--- NOTE | 2022-10-07 20:33 | PHA.MEDREC ---
Pharmacy Consult ? Medication Reconciliation Pharmacy has completed the medication reconciliation. Med box patient who is not a great historian. Used claim history to complete med rec.
[2022-10-07 20:40] LABS: Glucose, Whole Blood 324 mg/dL (60-115)
[2022-10-07 21:28] VITALS: BP 141/83; PULSE 113; RESP 18; TEMP 37; O2SAT 98
[2022-10-07 21:35] LABS: Glucose, Whole Blood 287 mg/dL (60-115)
[2022-10-07 21:36] LABS: ~Lactic Acid-LAB USE ONLY 1.6 mmol/L (0.5-2.0)
[2022-10-07] MEDS: Insulin Lispro 100 UNIT/ML 3 ML VIAL SUBCUT (21:44)
[2022-10-07 22:53] LABS: Appearance Urine Cloudy; Color Urine Yellow; Glucose Urine UA >=1000 mg/dL (Negative); Leukocyte Esterase Urine Moderate (2+) (Negative); Nitrite Urine Negative (Negative); Specific Gravity - Urine 1.015 (1.005-1.025); UMIC TRIGGER UACC YES; Urine Blood Large (3+) (Negative); Urine Ketones Negative (Negative); Urine Protein 100 (2+) mg/dL (Neg-Trace)
[2022-10-07] MEDS: Insulin Glargine,Hum.rec.anlog 100 UNIT/ML 10 ML VIAL 15 UNIT SUBCUT (22:57)
[2022-10-07 23:00] LABS: Bacteria Urine None Seen (None Seen); Hyaline Casts Urine 0-2 /LPF (0-2); RBC Urine >20 /HPF (0-2); Squamous Epithelial Cell Urine 0-2 /HPF (0-2); UACC Culture Trigger YES; WBC Urine >50 /HPF (0-5)
[2022-10-08 04:00] VITALS: BP 110/55; PULSE 98; RESP 17; TEMP 36.3; O2SAT 94
[2022-10-08] MEDS: Omeprazole 20 MG CAPSULE.DR PO (05:29)
[2022-10-08 07:02] LABS: MANUAL DIFF FLAG NO
[2022-10-08 07:07] LABS: Basophils Percent Auto 0.3 % (0-2); Eosinophils Absolute Auto 0.2 X10*3/uL (0.0-0.4); Eosinophils Percent Auto 1.7 % (0-4); Hematocrit 29.6 % (42.0-52.0); Hemoglobin 9.4 g/dl (14.0-18.0); Imm Gran Abs Auto 0.07 X10*3/uL (0.00-0.03); Imm Gran Pct Auto 0.6 % (0.0-0.4); Lymphocytes Absolute Auto 1.4 X10*3/uL (1.2-4.9); Lymphocytes Percent Auto 11.8 % (20-40); Mean Corpuscular HGB Conc 31.8 g/dl (31.0-36.0); Mean Corpuscular Hemoglobin 30.3 pg (27.0-33.0); Mean Corpuscular Volume 95.5 fL (80.0-98.0); Mean Platelet Volume 10.8 fL (9.4-12.4); Monocytes Absolute Auto 0.9 X10*3/uL (0.1-1.2); Monocytes Percent Auto 7.8 % (2-11); Neutrophils Absolute Auto 9.1 x10*3/uL (2.0-8.3); Neutrophils Percent Auto 77.8 % (45-73); Platelet Count 202 X10*3/uL (160-400); Red Cell Distribution Width 13.2 % (11.0-16.0); White Blood Count 11.7 X10*3/uL (4.8-10.8)
[2022-10-08 07:16] LABS: Glucose, Whole Blood 122 mg/dL (60-115)
[2022-10-08 07:26] LABS: Anion Gap 13 (12-20); Blood Urea Nitrogen 38 mg/dL (9-16); Calcium 8.4 mg/dL (8.4-10.2); Carbon Dioxide 20 mmol/L (22-29); Chloride 111 mmol/L (96-108); Creatinine Clr Calc Pharmacy 20.5; Estimated Glomerular Filt Rate 24; Glucose Random 131 mg/dL (60-115); Potassium 4.2 mmol/L (3.3-5.1); Sodium 140 mmol/L (135-145)
[2022-10-08 07:45] VITALS: BP 118/67; PULSE 95; RESP 20; TEMP 37.2; O2SAT 96
[2022-10-08] MEDS: 0.9 % Sodium Chloride Flush 3 ML SYRINGE IVFLUSH ×3 (09:32→20:32)
[2022-10-08] MEDS: Isosorbide Mononitrate 60 MG TAB.ER.24H PO (09:32)
[2022-10-08] MEDS: Pioglitazone HCL 45 MG TABLET PO (09:32)
[2022-10-08] MEDS: Metoprolol Succinate ER 50 MG TAB.ER.24H PO (09:33)
[2022-10-08 11:18] LABS: Glucose, Whole Blood 96 mg/dL (60-115)
--- NOTE | 2022-10-08 14:10 | P.PNIM_ITS ---
Subjective Subjective Date of Service: 10/08/22 Interval History: Seen and examined this morning Follow-up for Gram-negative sherrell bacteremia, COVID-19 History obtained with the assistance of a historical interpreter has dry cough, but overall feeling well this am. no fever/chills Review of Systems Review of Systems: Yes all other systems are reviewed and are negative Constitutional Constitutional: Denies chills and Denies fever(s) ENT Ears, Nose, Mouth, and Throat: Denies dizziness Cardiovascular Cardiovascular: Denies chest pain, Denies palpitations and Denies dyspnea Respiratory Respiratory: Reports cough and Denies dyspnea Gastrointestinal Gastrointestinal: Denies abdominal pain, Denies nausea and Denies vomiting Neurologic Neurologic: Denies dizziness Endocrine Endocrine: Denies palpitations Physical Exam Vital Signs: Vital Signs: Last Vital Signs Temp 98.9 F 10/08/22 07:45 Pulse 95 10/08/22 07:45 Resp 20 10/08/22 07:45 BP 118/67 10/08/22 07:45 Pulse Ox 96 10/08/22 07:45 O2 Del Method Room Air 10/08/22 07:45 BMI result Body Mass Index 28.8 Const: General: cooperative, comfortable, no acute distress, alert and awake Nutritional Appearance: average body habitus Resp: Effort & Inspection: normal respiratory effort, able to speak in complete sentences, no respiratory distress and no use of accessory muscles Cardio: Rate: regular rate Heart sounds: S1 normal heart sound present and S2 normal heart sound present GI: Inspection: No distended Palpation (GI): Soft to palpation and n ontender Neuro: General: moves all extremities Extrem: General: Yes no pedal edema Objective Data Active Medications Acetaminophen (Acetaminophen 325 Mg Tablet) 650 mg PO Q6H PRN PRN Reason: Pain, Mild (Pain Scale 1-3) Atorvastatin Calcium (Atorvastatin Calcium 40 Mg Tablet) 40 mg PO BEDTIME [facility] Dextrose (Dextrose 50 % 25 Gm/50 Ml Syringe) 25 gm IVPUSH Q15M PRN; Protocol PRN Reason: per Hypoglycemia Standing Ord. Docusate Sodium (Docusate Sodium 100 Mg Capsule) 100 mg PO DAILY PRN PRN Reason: Constipation Glucose (Glucose Gel 15 Gm Gel..Gram.) 15 gm PO Q15M PRN; Protocol PRN Reason: per Hypoglycemia Standing Ord. Ceftriaxone Sodium 2 gm/ (Sodium Chloride) 50 mls @ 100 mls/hr IV Q24H [facility] Insulin Glargine (Insulin Glargine,Hum.Rec.Anlog 100 Unit/Ml 10 Ml Vial) 15 unit SUBCUT BEDTIME [facility] Last Admin: 10/07/22 22:57 Dose: 15 unit Documented By: AMAN Insulin Human Lispro (Insulin Lispro 100 Unit/Ml 3 Ml Vial) 0 unit SUBCUT QIDACHS [facility]; Protocol Last Admin: 10/08/22 11:22 Dose: Not Given Documented By: TESSA Non-Admin Reason: No Insulin Coverage Isosorbide Mononitrate (Isosorbide Mononitrate 60 Mg Tab.Er.24h) 60 mg PO DAILY [facility]; Protocol Last Admin: 10/08/22 09:32 Dose: 60 mg Documented By: TESSA Metoprolol Succinate (Metoprolol Succinate Er 50 Mg Tab.Er.24h) 50 mg PO DAILY [facility]; Protocol Last Admin: 10/08/22 09:33 Dose: 50 mg Documented By: TESSA Omeprazole (Omeprazole 20 Mg Capsule.Dr) 20 mg PO DAILY@0630 [facility] Last Admin: 10/08/22 05:29 Dose: 20 mg Documented By: DOROTEO Ondansetron HCl (Ondansetron Hcl 4 Mg/2 Ml Vial) 4 mg IVPUSH Q8H PRN PRN Reason: Nausea and Vomiting Pharmacy Consult (Consult Rx Perform Med Rec) 1 each MISCELLANE ONCE PRN PRN Reason: Consult order Pioglitazone HCl (Pioglitazone Hcl 45 Mg Tablet) 45 mg PO DAILY [facility] Last Admin: 10/08/22 09:32 Dose: 45 mg Documented By: TESSA Sodium Chloride (0.9 % Sodium Chloride Flush 3 Ml Syringe) 3 ml IVFLUSH QSHIFT [facility] Last Admin: 10/08/22 09:32 Dose: 3 ml Documented By: TESSA Labs 10/08/22 06:51 10/08/22 06:51 Labs: Laboratory Results - last 24 hr 10/07/22 10/07/22 10/07/22 18:08 18:10 18:10 MCV 97.1 MCH 30.2 MCHC 31.1 RDW 13.2 Plt Count 216 MPV 11.2 Immature Gran % (Auto) 0.5 H Neut % (Auto) 80.0 H Lymph % (Auto) 7.9 L [place] % (Auto) 10.8 Eos % (Auto) 0.5 Baso % (Auto) 0.3 Lymph # (Auto) 1.0 L [place] # (Auto) 1.4 H Eos # (Auto) 0.1 Baso # (Auto) 0.0 Abs Immat Gran (auto) 0.06 H Absolute Neuts (auto) 10.4 H Absolute Nucleated RBC 0.000 Nucleated RBC % (auto) 0.0 Anion Gap 16 Estim Creat Clear Calc 16.9 Estimated GFR 19 POC Glucose Random Glucose 381 H* Lactic Acid 2.8 H* Lactic Acid F/U @ 2Hr Calcium 9.1 D Total Bilirubin 0.5 AST 28 ALT 20 Alkaline Phosphatase 90 Total Protein 7.2 Albumin 3.3 L Urine Color Urine Appearance Urine pH Ur Specific [place] Urine Protein Urine Glucose (UA) Urine Ketones Urine Blood Urine Nitrite Ur Leukocyte Esterase Urine RBC Urine WBC Ur Squamous Epith Cells Urine Bacteria Hyaline Casts 10/07/22 10/07/22 10/07/22 20:33 21:17 21:30 MCV MCH MCHC RDW Plt Count MPV Immature Gran % (Auto) Neut % (Auto) Lymph % (Auto) [place] % (Auto) Eos % (Auto) Baso % (Auto) Lymph # (Auto) [place] # (Auto) Eos # (Auto) Baso # (Auto) Abs Immat Gran (auto) Absolute Neuts (auto) Absolute Nucleated RBC Nucleated RBC % (auto) Anion Gap Estim Creat Clear Calc Estimated GFR POC Glucose 324 H 287 H Random Glucose Lactic Acid Lactic Acid F/U @ 2Hr 1.6 Calcium Total Bilirubin AST ALT Alkaline Phosphatase Total Protein Albumin Urine Color Urine Appearance Urine pH Ur Specific [place] Urine Protein Urine Glucose (UA) Urine Ketones Urine Blood Urine Nitrite Ur Leukocyte Esterase Urine RBC Urine WBC Ur Squamous Epith Cells Urine Bacteria Hyaline Casts 10/07/22 10/08/22 10/08/22 22:00 06:51 06:51 MCV 95.5 MCH 30.3 MCHC 31.8 RDW 13.2 Plt Count 202 MPV 10.8 Immature Gran % (Auto) 0.6 H Neut % (Auto) 77.8 H Lymph % (Auto) 11.8 L [place] % (Auto) 7.8 Eos % (Auto) 1.7 Baso % (Auto) 0.3 Lymph # (Auto) 1.4 [place] # (Auto) 0.9 Eos # (Auto) 0.2 Baso # (Auto) 0.0 Abs Immat Gran (auto) 0.07 H Absolute Neuts (auto) 9.1 H Absolute Nucleated RBC 0.000 Nucleated RBC % (auto) 0.0 Anion Gap 13 Estim Creat Clear Calc 20.5 Estimated GFR 24 POC Glucose Random Glucose 131 H Lactic Acid Lactic Acid F/U @ 2Hr Calcium 8.4 D Total Bilirubin AST ALT Alkaline Phosphatase Total Protein Albumin Urine Color Yellow Urine Appearance Cloudy Urine pH 6.0 Ur Specific [place] 1.015 Urine Protein 100 (2+) H Urine Glucose (UA) >=1000 H Urine Ketones Negative Urine Blood Large (3+) H Urine Nitrite Negative Ur Leukocyte Esterase Moderate (2+) H Urine RBC >20 H Urine WBC >50 H Ur Squamous Epith Cells 0-2 Urine Bacteria None Seen Hyaline Casts 0-2 10/08/22 10/08/22 07:05 11:12 MCV MCH MCHC RDW Plt Count MPV Immature Gran % (Auto) Neut % (Auto) Lymph % (Auto) [place] % (Auto) Eos % (Auto) Baso % (Auto) Lymph # (Auto) [place] # (Auto) Eos # (Auto) Baso # (Auto) Abs Immat Gran (auto) Absolute Neuts (auto) Absolute Nucleated RBC Nucleated RBC % (auto) Anion Gap Estim Creat Clear Calc Estimated GFR POC Glucose 122 H 96 Random Glucose Lactic Acid Lactic Acid F/U @ 2Hr Calcium Total Bilirubin AST ALT Alkaline Phosphatase Total Protein Albumin Urine Color Urine Appearance Urine pH Ur Specific [place] Urine Protein Urine Glucose (UA) Urine Ketones Urine Blood Urine Nitrite Ur Leukocyte Esterase Urine RBC Urine WBC Ur Squamous Epith Cells Urine Bacteria Hyaline Casts Assessment and Plan (1) Bacteremia due to Gram-negative bacteria: Status: Acute Plan This is a 76 year old male with history significant for HLD, afib on eliquis, HTN, [place], ckd stage 4, prior CVA, BM, h/o ureteric stents placed for hydronephrosis who was called to return to emergency department after his blood cultures grew Gram-negative rods Sepsis secondary to UTI/Gram-negative sherrell bacteremia Met sepsis criteria with leukocytosis, tachycardia. leukocytosis trending down, tachycardia improved Lactic acid 2.8, resolved with IVF fluid Blood cultures drawn 10/06 growing Gram-negative rods, repeat blood cultures pending urine culture pending, previous culture e.coli - will continue IV ceftriaxone, started 10/07/22 has left ureteral stent in place - placed 04/29 - will consult urology to deter mine need for removal COVID 19 infection cxr negative, no hypoxia monitor respiratory status closely isolation precautions DM with hyperglycemia possible r/t to acute infection SSI, POCs, ADA diet continue lantus hold baseline oral meds paroxysmal atrial fibrillation hold eliquis for possible need for stent removal continue metoprolol Normocytic anemia H/H at baseline Above transfusion threshold YESSENIA on CKD4 SCr 3.21 on admission, down to 2.65, near baseline continue gentle IVF follow renal function closely h/o cva hold plavix, continue statin dvt ppx - mechanical devices due to possible need for stent removal. will hold eliquis code status - full code HCP - Daughter attending dr novoa Given sepsis/bacteremia patient will likely require 2 midnight stay in the hospital for IV antibiotics on an close monitoring for decompensation of respiratory status secondary to acute COVID-19 infection. Time Spent With Patient Time: Total time managing care of this patient today ____ minutes. Quality Stroke Does the patient have a stroke diagnosis?: No VTE Prior VTE?: No VTE Risk Level:: Medical - moderate - high VTE Device Contraindication: N/A - Device Ordered VTE Drug Contraindication: N/A - Med Ordered
--- NOTE | 2022-10-08 14:21 | P.CDIM_ITS ---
PROVIDER RESPONSE TEXT: To clarify, the appropriate diagnosis supported by the clinical indicators: Diabetes mellitus Type 2 with hyperglycemia QUERY TEXT: PHYSICIAN'S DOCUMENTATION REQUEST Date of Query: 10/08/2022 09:12 AM EDT Patient Name: Matthew Lo Admit Date: 10/07/2022 Dear Carmen Zayas, A review of the medical record indicates additional documentation may be needed. Please review below and update the documentation accordingly. Clinical Indicators: LAB FINDINGS: POC glucose 324H 287H Insulin Please clarify the following regarding the Complications of Diabetes Mellitus (DM): Diabetes mellitus Type 2 with hyperglycemia Other etiology of labs please specify Other (explain)Clinically unable to determine (explain)Thank you, Ila Jones, CCS, CDIS Use of terms such as suspected, likely, concern for, or probable (associated with a specific diagnosi s that is being evaluated, monitored, or treated as if it exists) are acceptable and can be coded in the inpatient se tting, when documented at the time of discharge. Please use your independent medical judgment in providing your response. THIS QUERY IS PART OF THE PERMANENT MEDICAL RECORD
[2022-10-08 15:38] VITALS: BP 122/62; PULSE 85; RESP 18; TEMP 36.9; O2SAT 96
[2022-10-08] MEDS: Lactated Ringers 1,000 ML 80 ML IVCONT (15:52)
[2022-10-08 16:21] LABS: Glucose, Whole Blood 221 mg/dL (60-115)
[2022-10-08] MEDS: cefTRIAXone sodium 2 GM in 0.9 % Sodium Chloride 50 ML IV (17:14)
[2022-10-08] MEDS: Insulin Lispro 100 UNIT/ML 3 ML VIAL SUBCUT ×2 (17:14→20:31)
[2022-10-08 19:41] VITALS: BP 116/61; PULSE 80; RESP 17; TEMP 37.1; O2SAT 96
[2022-10-08 20:27] LABS: Glucose, Whole Blood 195 mg/dL (60-115)
[2022-10-08] MEDS: Atorvastatin Calcium 40 MG TABLET PO (20:31)
[2022-10-08] MEDS: Insulin Glargine,Hum.rec.anlog 100 UNIT/ML 10 ML VIAL 15 UNIT SUBCUT (20:32)
[2022-10-09 03:48] VITALS: BP 119/69; PULSE 79; RESP 16; TEMP 36.7; O2SAT 96
[2022-10-09] MEDS: Lactated Ringers 1,000 ML 80 ML IVCONT ×2 (03:50→17:36)
[2022-10-09] MEDS: Omeprazole 20 MG CAPSULE.DR PO (05:17)
[2022-10-09 06:27] LABS: MANUAL DIFF FLAG NO
[2022-10-09 06:31] LABS: Basophils Percent Auto 0.3 % (0-2); Eosinophils Absolute Auto 0.3 X10*3/uL (0.0-0.4); Eosinophils Percent Auto 2.4 % (0-4); Hematocrit 30.3 % (42.0-52.0); Hemoglobin 9.5 g/dl (14.0-18.0); Imm Gran Abs Auto 0.07 X10*3/uL (0.00-0.03); Imm Gran Pct Auto 0.7 % (0.0-0.4); Lymphocytes Absolute Auto 1.7 X10*3/uL (1.2-4.9); Lymphocytes Percent Auto 16.2 % (20-40); Mean Corpuscular HGB Conc 31.4 g/dl (31.0-36.0); Mean Corpuscular Hemoglobin 29.9 pg (27.0-33.0); Mean Corpuscular Volume 95.3 fL (80.0-98.0); Mean Platelet Volume 10.9 fL (9.4-12.4); Monocytes Absolute Auto 0.9 X10*3/uL (0.1-1.2); Monocytes Percent Auto 8.6 % (2-11); Neutrophils Absolute Auto 7.7 x10*3/uL (2.0-8.3); Neutrophils Percent Auto 71.8 % (45-73); Platelet Count 216 X10*3/uL (160-400); Red Blood Count 3.18 X10*6/uL (4.60-5.80); Red Cell Distribution Width 13.2 % (11.0-16.0); White Blood Count 10.7 X10*3/uL (4.8-10.8)
[2022-10-09 06:50] LABS: Anion Gap 14 (12-20); Blood Urea Nitrogen 39 mg/dL (9-16); Calcium 8.6 mg/dL (8.4-10.2); Carbon Dioxide 22 mmol/L (22-29); Chloride 108 mmol/L (96-108); Creatinine Clr Calc Pharmacy 19.7; Estimated Glomerular Filt Rate 23; Glucose Random 83 mg/dL (60-115); Potassium 4.2 mmol/L (3.3-5.1); Sodium 140 mmol/L (135-145)
[2022-10-09 07:46] LABS: Glucose, Whole Blood 74 mg/dL (60-115)
[2022-10-09 08:00] VITALS: BP 118/62; PULSE 66; RESP 18; TEMP 36; O2SAT 98
[2022-10-09] MEDS: Metoprolol Succinate ER 50 MG TAB.ER.24H PO (08:59)
[2022-10-09] MEDS: Isosorbide Mononitrate 60 MG TAB.ER.24H PO (08:59)
[2022-10-09] MEDS: 0.9 % Sodium Chloride Flush 3 ML SYRINGE IVFLUSH (08:59)
--- NOTE | 2022-10-09 10:45 | MHC.CM.PN ---
Pt COVID +. Attempted connection w/HCP on file. No answer. LVM requesting return call for interview. CM to follow.
--- NOTE | 2022-10-09 10:55 | MHC.CM.PN ---
Lives w/daughter. Home is fully handicapped accessible. Has [employer] hrs: 21 hrs/wk. Daughter transports to/fro appts, she will transport him home. No previous services. Has been in SNF before and daughter not in agreement should this be the D/C recommendation. She would however, agree to home w/services. CM to follow.
[2022-10-09 11:55] LABS: Glucose, Whole Blood 154 mg/dL (60-115)
--- NOTE | 2022-10-09 11:55 | P.PNIM_ITS ---
Subjective Subjective Date of Service: 10/09/22 Interval History: Seen and examined this morning Follow-up for Gram-negative sherrell bacteremia, COVID-19 Review of Systems Review of Systems: Yes all other systems are reviewed and are negative Constitutional Constitutional: Denies chills and Denies fever(s) ENT Ears, Nose, Mouth, and Throat: Denies dizziness Cardiovascular Cardiovascular: Denies chest pain, Denies palpitations and Denies dyspnea Respiratory Respiratory: Reports cough and Denies dyspnea Gastrointestinal Gastrointestinal: Denies abdominal pain, Denies nausea and Denies vomiting Neurologic Neurologic: Denies dizziness Endocrine Endocrine: Denies palpitations Physical Exam Vital Signs: Vital Signs: Last Vital Signs Temp 96.8 F 10/09/22 08:00 Pulse 66 10/09/22 08:00 Resp 18 10/09/22 08:00 BP 118/62 10/09/22 08:00 Pulse Ox 98 10/09/22 08:00 O2 Del Method Room Air 10/09/22 08:00 BMI result Body Mass Index 28.8 Appearing in no acute distress lung sounds are clear to auscultation heart regular rate rhythm, clear S1, S2 positive bowel sounds, abdomen is soft, nontender neuro patient is alert x3, no focal deficits Objective Data Active Medications Acetaminophen (Acetaminophen 325 Mg Tablet) 650 mg PO Q6H PRN PRN Reason: Pain, Mild (Pain Scale 1-3) Atorvastatin Calcium (Atorvastatin Calcium 40 Mg Tablet) 40 mg PO BEDTIME [facility] Last Admin: 10/08/22 20:31 Dose: 40 mg Documented By: KIMI Dextrose (Dextrose 50 % 25 Gm/50 Ml Syringe) 25 gm IVPUSH Q15M PRN; Protocol PRN Reason: per Hypoglycemia Standing Ord. Docusate Sodium (Docusate Sodium 100 Mg Capsule) 100 mg PO DAILY PRN PRN Reason: Constipation Glucose (Glucose Gel 15 Gm Gel..Gram.) 15 gm PO Q15M PRN; Protocol PRN Reason: per Hypoglycemia Standing Ord. Guaifenesin (Guaifenesin 100 Mg/5 Ml Liquid) 5 ml PO Q6H PRN PRN Reason: Cough Ceftriaxone Sodium 2 gm/ (Sodium Chloride) 50 mls @ 100 mls/hr IV Q24H [facility] Last Infusion: 10/08/22 17:50 Dose: 0 mls/hr Documented By: TESSA Lactated Ringer's (Lr) 1,000 mls @ 80 mls/hr IVCONT .[id number] [facility] Last Admin: 10/09/22 03:50 Dose: 80 mls/hr Documented By: KIMI Insulin Glargine (Insulin Glargine,Hum.Rec.Anlog 100 Unit/Ml 10 Ml Vial) 15 unit SUBCUT BEDTIME [facility] Last Admin: 10/08/22 20:32 Dose: 15 unit Documented By: KIMI Insulin Human Lispro (Insulin Lispro 100 Unit/Ml 3 Ml Vial) 0 unit SUBCUT QIDACHS [facility]; Protocol Last Admin: 10/09/22 09:00 Dose: Not Given Documented By: JONA Non-Admin Reason: No Insulin Coverage Isosorbide Mononitrate (Isosorbide Mononitrate 60 Mg Tab.Er.24h) 60 mg PO DAILY [facility]; Protocol Last Admin: 10/09/22 08:59 Dose: 60 mg Documented By: JONA Metoprolol Succinate (Metoprolol Succinate Er 50 Mg Tab.Er.24h) 50 mg PO DAILY [facility]; Protocol Last Admin: 10/09/22 08:59 Dose: 50 mg Documented By: JONA Omeprazole (Omeprazole 20 Mg Capsule.Dr) 20 mg PO DAILY@0630 [facility] Last Admin: 10/09/22 05:17 Dose: 20 mg Documented By: KIMI Ondansetron HCl (Ondansetron Hcl 4 Mg/2 Ml Vial) 4 mg IVPUSH Q8H PRN PRN Reason: Nausea and Vomiting Pharmacy Consult (Consult Rx Perform Med Rec) 1 each MISCELLANE ONCE PRN PRN Reason: Consult order Sodium Chloride (0.9 % Sodium Chloride Flush 3 Ml Syringe) 3 ml IVFLUSH QSHIFT [facility] Last Admin: 10/09/22 08:59 Dose: 3 ml Documented By: JONA Labs 10/09/22 05:52 10/09/22 05:52 Labs: Laboratory Results - last 24 hr 10/08/22 10/08/22 10/09/22 15:41 20:18 05:52 MCV 95.3 MCH 29.9 MCHC 31.4 RDW 13.2 Plt Count 216 MPV 10.9 Immature Gran % (Auto) 0.7 H Neut % (Auto) 71.8 Lymph % (Auto) 16.2 L [place] % (Auto) 8.6 Eos % (Auto) 2.4 Baso % (Auto) 0.3 Lymph # (Auto) 1.7 [place] # (Auto) 0.9 Eos # (Auto) 0.3 Baso # (Auto) 0.0 Abs Immat Gran (auto) 0.07 H Absolute Neuts (auto) 7.7 Absolute Nucleated RBC 0.000 Nucleated RBC % (auto) 0.0 Anion Gap Estim Creat Clear Calc Estimated GFR POC Glucose 221 H 195 H Random Glucose Calcium 10/09/22 10/09/22 10/09/22 05:52 07:35 11:40 MCV MCH MCHC RDW Plt Count MPV Immature Gran % (Auto) Neut % (Auto) Lymph % (Auto) [place] % (Auto) Eos % (Auto) Baso % (Auto) Lymph # (Auto) [place] # (Auto) Eos # (Auto) Baso # (Auto) Abs Immat Gran (auto) Absolute Neuts (auto) Absolute Nucleated RBC Nucleated RBC % (auto) Anion Gap 14 Estim Creat Clear Calc 19.7 Estimated GFR 23 POC Glucose 74 154 H Random Glucose 83 Calcium 8.6 Microbiology Microbiology Results: Microbiology 10/07/22 18:16 Blood Culture - Preliminary Blood - Venous No growth after 24 hours. 10/07/22 18:10 Blood Culture - Preliminary Blood - Venous No growth after 24 hours. Assessment and Plan (1) Bacteremia due to Gram-negative bacteria: Status: Acute Plan This is a 76 year old male with history significant for HLD, afib on eliquis, HTN, [place], ckd stage 4, prior CVA, BM, h/o ureteric stents placed for hydronephrosis who was called to return to emergency department after his blood cultures grew Gram-negative rods Sepsis secondary to UTI/Ecoli bacteremia Met sepsis criteria with leukocytosis, tachycardia. leukocytosis trending down, tachycardia improved Lactic acid 2.8, resolved with IVF fluid urine culture e.coli - will continue IV ceftriaxone, started 10/07/22 has left ureteral stent in place - placed 04/29 - Plan for removal 10/11/22 COVID 19 infection cxr negative, no hypoxia monitor respiratory status closely isolation precautions DM with hyperglycemia possible r/t to acute infection SSI, POCs, ADA diet continue lantus hold baseline oral meds paroxysmal atrial fibrillation hold eliquis for stent removal, tuesday continue metoprolol Normocytic anemia H/H at baseline Above transfusion threshold YESSENIA on CKD4. Trendiing down SCr 3.21 on admission follow renal function closely h/o cva hold plavix, continue statin dvt ppx - mechanical devices due to possible need for stent removal. will hold eliquis code status - full code HCP - Daughter attending dr Love Given sepsis/bacteremia patient will likely require 2 midnight stay in the hospital for IV antibiotics on an close monitoring for decompensation of respiratory status secondary to acute COVID-19 infection. Time Spent With Patient Time: Total time managing care of this patient today ____ minutes. Quality Stroke Does the patient have a stroke diagnosis?: No VTE Prior VTE?: No VTE Risk Level:: Medical - moderate - high VTE Device Contraindication: N/A - Device Ordered VTE Drug Contraindication: N/A - Med Ordered
[2022-10-09] MEDS: Insulin Lispro 100 UNIT/ML 3 ML VIAL SUBCUT ×3 (12:30→21:44)
[2022-10-09 15:50] VITALS: BP 136/68; PULSE 71; RESP 20; TEMP 37.1; O2SAT 99
[2022-10-09 16:28] LABS: Glucose, Whole Blood 196 mg/dL (60-115)
[2022-10-09] MEDS: cefTRIAXone sodium 2 GM in 0.9 % Sodium Chloride 50 ML IV (17:19)
[2022-10-09 20:00] VITALS: BP 119/65; PULSE 75; RESP 22; TEMP 36.7; O2SAT 98
[2022-10-09 20:47] LABS: Glucose, Whole Blood 167 mg/dL (60-115)
[2022-10-09] MEDS: Insulin Glargine,Hum.rec.anlog 100 UNIT/ML 10 ML VIAL 15 UNIT SUBCUT (21:45)
[2022-10-09] MEDS: Atorvastatin Calcium 40 MG TABLET PO (21:46)
[2022-10-10 04:00] VITALS: BP 132/70; PULSE 82; RESP 16; TEMP 36.3; O2SAT 98
[2022-10-10] MEDS: Lactated Ringers 1,000 ML 80 ML IVCONT (06:45)
[2022-10-10] MEDS: Omeprazole 20 MG CAPSULE.DR PO (06:46)
[2022-10-10 07:35] LABS: Glucose, Whole Blood 74 mg/dL (60-115)
[2022-10-10 08:00] VITALS: BP 153/80; PULSE 80; RESP 17; TEMP 36.3; O2SAT 99
--- NOTE | 2022-10-10 10:38 | P.PNIM_ITS ---
Subjective Subjective Date of Service: 10/10/22 Interval History: Seen and examined this morning Follow-up for Gram-negative sherrell bacteremia, COVID-19 Review of Systems Review of Systems: Yes all other systems are reviewed and are negative Constitutional Constitutional: Denies chills and Denies fever(s) ENT Ears, Nose, Mouth, and Throat: Denies dizziness Cardiovascular Cardiovascular: Denies chest pain, Denies palpitations and Denies dyspnea Respiratory Respiratory: Reports cough and Denies dyspnea Gastrointestinal Gastrointestinal: Denies abdominal pain, Denies nausea and Denies vomiting Neurologic Neurologic: Denies dizziness Endocrine Endocrine: Denies palpitations Physical Exam Vital Signs: Vital Signs: Last Vital Signs Temp 97.3 F 10/10/22 08:00 Pulse 80 10/10/22 08:00 Resp 17 10/10/22 08:00 BP 153/80 H 10/10/22 08:00 Pulse Ox 99 10/10/22 08:00 O2 Del Method Room Air 10/10/22 08:00 BMI result Body Mass Index 28.8 Appearing in no acute distress lung sounds are clear to auscultation heart regular rate rhythm, clear S1, S2 positive bowel sounds, abdomen is soft, nontender neuro patient is alert x3, no focal deficits Objective Data Active Medications Acetaminophen (Acetaminophen 325 Mg Tablet) 650 mg PO Q6H PRN PRN Reason: Pain, Mild (Pain Scale 1-3) Atorvastatin Calcium (Atorvastatin Calcium 40 Mg Tablet) 40 mg PO BEDTIME [facility] Last Admin: 10/09/22 21:46 Dose: 40 mg Documented By: CHRISTOPHER Dextrose (Dextrose 50 % 25 Gm/50 Ml Syringe) 25 gm IVPUSH Q15M PRN; Protocol PRN Reason: per Hypoglycemia Standing Ord. Docusate Sodium (Docusate Sodium 100 Mg Capsule) 100 mg PO DAILY PRN PRN Reason: Constipation Glucose (Glucose Gel 15 Gm Gel..Gram.) 15 gm PO Q15M PRN; Protocol PRN Reason: per Hypoglycemia Standing Ord. Guaifenesin (Guaifenesin 100 Mg/5 Ml Liquid) 5 ml PO Q6H PRN PRN Reason: Cough Ceftriaxone Sodium 2 gm/ (Sodium Chloride) 50 mls @ 100 mls/hr IV Q24H [facility] Last Infusion: 10/09/22 17:57 Dose: 0 mls/hr Documented By: JONA Lactated Ringer's (Lr) 1,000 mls @ 80 mls/hr IVCONT .[id number] [facility] Last Admin: 10/10/22 06:45 Dose: 80 mls/hr Documented By: CHRISTOPHER Insulin Glargine (Insulin Glargine,Hum.Rec.Anlog 100 Unit/Ml 10 Ml Vial) 15 unit SUBCUT BEDTIME [facility] Last Admin: 10/09/22 21:45 Dose: 15 unit Documented By: CHRISTOPHER Insulin Human Lispro (Insulin Lispro 100 Unit/Ml 3 Ml Vial) 0 unit SUBCUT QIDACHS [facility]; Protocol Last Admin: 10/10/22 07:46 Dose: Not Given Documented By: BING Non-Admin Reason: No Insulin Coverage Isosorbide Mononitrate (Isosorbide Mononitrate 60 Mg Tab.Er.24h) 60 mg PO DAILY [facility]; Protocol Last Admin: 10/09/22 08:59 Dose: 60 mg Documented By: JONA Metoprolol Succinate (Metoprolol Succinate Er 50 Mg Tab.Er.24h) 50 mg PO DAILY [facility]; Protocol Last Admin: 10/09/22 08:59 Dose: 50 mg Documented By: JONA Omeprazole (Omeprazole 20 Mg Capsule.Dr) 20 mg PO DAILY@0630 [facility] Last Admin: 10/10/22 06:46 Dose: 20 mg Documented By: CHRISTOPHER Ondansetron HCl (Ondansetron Hcl 4 Mg/2 Ml Vial) 4 mg IVPUSH Q8H PRN PRN Reason: Nausea and Vomiting Pharmacy Consult (Consult Rx Perform Med Rec) 1 each MISCELLANE ONCE PRN PRN Reason: Consult order Sodium Chloride (0.9 % Sodium Chloride Flush 3 Ml Syringe) 3 ml IVFLUSH QSHIFT [facility] Last Admin: 10/10/22 00:00 Dose: Not Given Documented By: CHRISTOPHER Non-Admin Reason: Previously Administered Labs 10/09/22 05:52 10/09/22 05:52 Labs: Laboratory Results - last 24 hr 10/09/22 10/09/22 10/09/22 11:40 16:24 20:41 POC Glucose 154 H 196 H 167 H 10/10/22 07:27 POC Glucose 74 Microbiology Microbiology Results: Microbiology 10/07/22 18:16 Blood Culture - Preliminary Blood - Venous No growth after 48 hours. 10/07/22 18:10 Blood Culture - Preliminary Blood - Venous No growth after 48 hours. Assessment and Plan (1) Bacteremia due to Gram-negative bacteria: Status: Acute Plan This is a 76 year old male with history significant for HLD, afib on eliquis, HTN, [place], ckd stage 4, prior CVA, BM, h/o ureteric stents placed for hydronephrosis who was called to return to emergency department after his blood cultures grew Gram-negative rods Sepsis secondary to UTI/Ecoli bacteremia Met sepsis criteria with leukocytosis, tachycardia. leukocytosis trending down, tachycardia improved Lactic acid 2.8, resolved with IVF fluid urine culture e.coli - will continue IV ceftriaxone, started 10/07/22 has left ureteral stent in place - placed 04/29 - Plan for removal 10/11/22 COVID 19 infection cxr negative, no hypoxia monitor respiratory status closely isolation precautions DM with hyperglycemia possible r/t to acute infection SSI, POCs, ADA diet continue lantus hold baseline oral meds paroxysmal atrial fibrillation hold eliquis for stent removal, tuesday continue metoprolol Normocytic anemia H/H at baseline Above transfusion threshold YESSENIA on CKD4. Trendiing down SCr 3.21 on admission follow renal function closely h/o cva hold plavix, continue statin dvt ppx - mechanical devices due to possible need for stent removal. will hold eliquis code status - full code HCP - Daughter attending dr Love Given sepsis/bacteremia patient will likely require 2 midnight stay in the hospital for IV antibiotics on an close monitoring for decompensation of respi ratory status secondary to acute COVID-19 infection. Time Spent With Patient Time: Total time managing care of this patient today ____ minutes. Quality Stroke Does the patient have a stroke diagnosis?: No VTE Prior VTE?: No VTE Risk Level:: Medical - moderate - high VTE Device Contraindication: N/A - Device Ordered VTE Drug Contraindication: N/A - Med Ordered
[2022-10-10] MEDS: 0.9 % Sodium Chloride Flush 3 ML SYRINGE IVFLUSH ×2 (11:04→17:12)
[2022-10-10] MEDS: Isosorbide Mononitrate 60 MG TAB.ER.24H PO (11:04)
[2022-10-10] MEDS: Metoprolol Succinate ER 50 MG TAB.ER.24H PO (11:04)
[2022-10-10 11:14] LABS: Glucose, Whole Blood 178 mg/dL (60-115)
[2022-10-10] MEDS: Insulin Lispro 100 UNIT/ML 3 ML VIAL SUBCUT ×2 (11:29→17:12)
[2022-10-10 12:11] VITALS: BP 154/84; PULSE 76; RESP 18; TEMP 36.3; O2SAT 100
[2022-10-10 16:00] VITALS: BP 140/72; PULSE 76; RESP 14; TEMP 36.1; O2SAT 100
[2022-10-10 17:10] LABS: Glucose, Whole Blood 226 mg/dL (60-115)
[2022-10-10] MEDS: cefTRIAXone sodium 2 GM in 0.9 % Sodium Chloride 50 ML IV (17:10)
[2022-10-10 20:00] VITALS: BP 142/76; PULSE 68; RESP 18; TEMP 36.2; O2SAT 99
[2022-10-10 22:33] LABS: Glucose, Whole Blood 120 mg/dL (60-115)
[2022-10-10] MEDS: Insulin Glargine,Hum.rec.anlog 100 UNIT/ML 10 ML VIAL 15 UNIT SUBCUT (22:43)
[2022-10-10] MEDS: Atorvastatin Calcium 40 MG TABLET PO (22:43)
[2022-10-11] VITALS (9 sets, daily range): BP systolic 122–159; BP diastolic 59–84; PULSE 61–80; RESP 13–20; TEMP 36.1–36.9; O2SAT 96–100
[2022-10-11] MEDS: 0.9 % Sodium Chloride Flush 3 ML SYRINGE IVFLUSH ×3 (01:02→16:47)
[2022-10-11] MEDS: Omeprazole 20 MG CAPSULE.DR PO (05:55)
[2022-10-11 06:57] LABS: Anion Gap 14 (12-20); Blood Urea Nitrogen 30 mg/dL (9-16); Calcium 8.6 mg/dL (8.4-10.2); Carbon Dioxide 22 mmol/L (22-29); Chloride 108 mmol/L (96-108); Creatinine Clr Calc Pharmacy 25.8; Estimated Glomerular Filt Rate 31; Glucose Random 69 mg/dL (60-115); Potassium 3.8 mmol/L (3.3-5.1); Sodium 140 mmol/L (135-145)
[2022-10-11 08:01] LABS: Glucose, Whole Blood 66 mg/dL (60-115)
[2022-10-11] MEDS: Isosorbide Mononitrate 60 MG TAB.ER.24H PO (09:05)
[2022-10-11] MEDS: Metoprolol Succinate ER 50 MG TAB.ER.24H PO (09:05)
[2022-10-11] MEDS: Dextrose 50 % 25 GM/50 ML SYRINGE IVPUSH ×2 (09:10→16:47)
--- NOTE | 2022-10-11 09:11 | PC.NURSE ---
patientnpo, blood glucose 65 , iv push glucose given
--- NOTE | 2022-10-11 09:45 | HO.PM.IMPN ---
Subjective Subjective Date of Service: 10/11/22 Interval History: Seen and examined this morning Follow-up for Gram-negative sherrell bacteremia, COVID-19 Review of Systems Review of Systems: Yes all other systems are reviewed and are negative Constitutional Constitutional: Denies chills and Denies fever(s) ENT Ears, Nose, Mouth, and Throat: Denies dizziness Cardiovascular Cardiovascular: Denies chest pain, Denies palpitations and Denies dyspnea Respiratory Respiratory: Reports cough and Denies dyspnea Gastrointestinal Gastrointestinal: Denies abdominal pain, Denies nausea and Denies vomiting Neurologic Neurologic: Denies dizziness Endocrine Endocrine: Denies palpitations Physical Exam Vital Signs: Vital Signs: Last Vital Signs Temp 98.4 F 10/11/22 07:34 Pulse 75 10/11/22 07:34 Resp 20 10/11/22 07:34 BP 143/71 H 10/11/22 07:34 Pulse Ox 97 10/11/22 07:34 O2 Del Method Room Air 10/11/22 07:34 BMI result Body Mass Index 28.8 Appearing in no acute distress lung sounds are clear to auscultation heart regular rate rhythm, clear S1, S2 positive bowel sounds, abdomen is soft, nontender neuro patient is alert x3, no focal deficits Objective Data Active Medications Acetaminophen (Acetaminophen 325 Mg Tablet) 650 mg PO Q6H PRN PRN Reason: Pain, Mild (Pain Scale 1-3) Atorvastatin Calcium (Atorvastatin Calcium 40 Mg Tablet) 40 mg PO BEDTIME [facility] Last Admin: 10/10/22 22:43 Dose: 40 mg Documented By: BING Dextrose (Dextrose 50 % 25 Gm/50 Ml Syringe) 25 gm IVPUSH Q15M PRN; Protocol PRN Reason: per Hypoglycemia Standing Ord. Last Admin: 10/11/22 09:10 Dose: 25 gm Documented By: WILVER Docusate Sodium (Docusate Sodium 100 Mg Capsule) 100 mg PO DAILY PRN PRN Reason: Constipation Glucose (Glucose Gel 15 Gm Gel..Gram.) 15 gm PO Q15M PRN; Protocol PRN Reason: per Hypoglycemia Standing Ord. Guaifenesin (Guaifenesin 100 Mg/5 Ml Liquid) 5 ml PO Q6H PRN PRN Reason: Cough Ceftriaxone Sodium 2 gm/ (Sodium Chloride) 50 mls @ 100 mls/hr IV Q24H [facility] Last Infusion: 10/10/22 17:49 Dose: 0 mls/hr Documented By: BING Insulin Glargine (Insulin Glargine,Hum.Rec.Anlog 100 Unit/Ml 10 Ml Vial) 15 unit SUBCUT BEDTIME [facility] Last Admin: 10/10/22 22:43 Dose: 15 unit Documented By: BING Insulin Human Lispro (Insulin Lispro 100 Unit/Ml 3 Ml Vial) 0 unit SUBCUT QIDACHS [facility]; Protocol Last Admin: 10/11/22 09:06 Dose: Not Given Documented By: WILVER Non-Admin Reason: No Insulin Coverage Isosorbide Mononitrate (Isosorbide Mononitrate 60 Mg Tab.Er.24h) 60 mg PO DAILY [facility]; Protocol Last Admin: 10/11/22 09:05 Dose: 60 mg Documented By: WILVER Metoprolol Succinate (Metoprolol Succinate Er 50 Mg Tab.Er.24h) 50 mg PO DAILY [facility]; Protocol Last Admin: 10/11/22 09:05 Dose: 50 mg Documented By: WILVER Omeprazole (Omeprazole 20 Mg Capsule.Dr) 20 mg PO DAILY@0630 [facility] Last Admin: 10/11/22 05:55 Dose: 20 mg Documented By: HEATHER Ondansetron HCl (Ondansetron Hcl 4 Mg/2 Ml Vial) 4 mg IVPUSH Q8H PRN PRN Reason: Nausea and Vomiting Pharmacy Consult (Consult Rx Perform Med Rec) 1 each MISCELLANE ONCE PRN PRN Reason: Consult order Sodium Chloride (0.9 % Sodium Chloride Flush 3 Ml Syringe) 3 ml IVFLUSH QSHIFT [facility] Last Admin: 10/11/22 09:05 Dose: 3 ml Documented By: WILVER Labs 10/09/22 05:52 10/11/22 06:16 Labs: Laboratory Results - last 24 hr 10/10/22 10/10/22 10/10/22 11:03 16:48 20:57 Anion Gap Estim Creat Clear Calc Estimated GFR POC Glucose 178 H 226 H 120 H Random Glucose Calcium 10/11/22 10/11/22 06:16 07:56 Anion Gap 14 Estim Creat Clear Calc 25.8 Estimated GFR 31 POC Glucose 66 Random Glucose 69 Calcium 8.6 Assessment and Plan (1) Bacteremia due to Gram-negative bacteria: Status: Acute Plan This is a 76 year old male with history significant for HLD, afib on eliquis, HTN, MD, ckd stage 4, prior CVA, BM, h/o ureteric stents placed for hydronephrosis who was called to return to emergency department after his blood cultures grew Gram-negative rods Sepsis secondary to UTI/Ecoli bacteremia sepsis resolved urine culture e.coli - will continue IV ceftriaxone, started 10/07/22, likely 14 days has left ureteral stent in place - placed 04/29 - Plan for removal today COVID 19 infection cxr negative, no hypoxia monitor respiratory status closely isolation precautions DM2 with hyperglycemia possible r/t to acute infection SSI, POCs, ADA diet continue lantus hold baseline oral meds paroxysmal atrial fibrillation hold eliquis for stent removall, today continue metoprolol Normocytic anemia H/H at baseline Above transfusion threshold YESSENIA on CKD4. Trending down SCr 3.21 on admission follow renal function closely h/o cva hold plavix, continue statin dvt ppx - mechanical devices due to possible need for stent removal. will hold eliquis code status - full code HCP - Daughter attending Dr. Iyer Given sepsis/bacteremia patient will likely require 2 midnight stay in the hospital for IV antibiotics on an close monitoring for decompensation of respiratory status secondary to acute COVID-19 infection. Time Spent With Patient Time: Total time managing care of this patient today ____ minutes. Quality Stroke Does the patient have a stroke diagnosis?: No VTE Prior VTE?: No VTE Risk Level:: Medical - moderate - high VTE Device Contraindication: N/A - Device Ordered VTE Drug Contraindication: N/A - Med Ordered
[2022-10-11 10:36] LABS: Glucose, Whole Blood 145 mg/dL (60-115)
[2022-10-11 11:50] LABS: Glucose, Whole Blood 123 mg/dL (60-115)
--- NOTE | 2022-10-11 14:53 | MHC.CM.PN ---
EMR REVIEWED, PT COVID+, PLAN FOR URETAL STENT REMOVAL TODAY, NO PLAN FOR D/C, PLAN CONT'S TO BE HOME W/SERVICES FAMILY DOES NOT WANT STR, CM WILL CONT TO FOLLOW D/C NEEDS.
[2022-10-11 16:10] LABS: Glucose, Whole Blood 75 mg/dL (60-115)
[2022-10-11] MEDS: cefTRIAXone sodium 2 GM in 0.9 % Sodium Chloride 50 ML IV (16:47)
[2022-10-11 19:22] LABS: Glucose, Whole Blood 137 mg/dL (60-115)
--- NOTE | 2022-10-11 19:51 | PC.NURSE ---
Preop nurse was notified prior to pt transfer from the floor that his IV access was not working properly. Preop RN offered to start new IV and pt was transferred for surgical prep.
--- NOTE | 2022-10-11 20:11 | MHC.SHP ---
Pre-Procedural Eval Section A Date of Service: 10/11/22 The patient is an INPATIENT: Yes Changes since office visit: No Cold of Flu in the past 2 weeks, No New Medical Problems, No Changes in Medication and No Patient answered all questions The History & Physical has been completed within 30 days and I have reviewed it.: Yes Section B Chief Complaint: GNR Bacteremia Details of Present Illness: Cystoscopy, left stent removal Relevant Social History: None Present Medications: see Short Stay Collaborative assessment Medical History: Significant History History of Previous Operations: Relevant previous surgery/procedure and date(s) Allergies: Allergies Allergy/AdvReac Type Severity Reaction Status Date / Time empagliflozin AdvReac Intermediate reccurent Verified 10/07/22 17:22 [From Jardiance] UTI, hypoglycemia Review of Systems Sugical H&P ROS: Negative: Constitution, Cardiovascular, Respiratory, Neurological, Psychiatric, Hem-Onc, Allergic/Immunologic, Gastrointestinal, Genitourinary, Musculoskeletal, Integumentary, Endocrine and Eyes/Ears/Nose/Throat Exam Surgical H&P Exam: Normal: HEENT, Normal: Heart, Normal: Lungs, Normal: Extremities, Normal: Abdomen, Normal: Skin and Normal: Neurological Plan Diagnosis/Plan: Unchanged ( cystoscopy, left stent removed) I have reviewed the history and physical and performed a pertinent physical examination on my patient. No changes have occurred unless specified. Time Spent With Patient Time: Total time managing care of this patient today ____ minutes.
[2022-10-11 20:13] LABS: Glucose, Whole Blood 114 mg/dL (60-115)
--- NOTE | 2022-10-11 20:42 | P.CONAN_ITS ---
[facility] Active Problems Active Problems: All Active Problems (Updated 10/08/22 @ 00:56 by Gurpreet Valerio MD) Bacteremia due to Gram-negative bacteria (Acute) COVID-19 (Acute) Ureteral stent present (Acute) Dysuria (Acute) Hypoglycemia (Acute) Acute metabolic encephalopathy (Acute) Metabolic encephalopathy (Acute) Hypoglycemia (Acute) Hematuria (Acute) UTI (urinary tract infection) (Acute) Hydronephrosis (Acute) Bladder wall thickening (Acute) Bladder outlet obstruction (Acute) Past Medical History Medical History A-fib Chronic renal failure, stage 4 (severe) Diabetes 1.5, managed as type 2 Glucosuria High cholesterol Hypertension PAF (paroxysmal atrial fibrillation) Family History Family History Other No family history of coronary artery disease Family history of problems with anesthesia: No Surgical History Surgical History No pertinent past surgical history History of Problems with Anesthesia: No Social History Social History Household Members: Family Housing: House Do you presently have visiting nurse or other home services: Yes Alcohol intake: never Patient Tobacco Use Status: Never used Tobacco Smoked in Last 30 Days: No e-Cigarette/Vaping Use: Never Used Use of substances other than those prescribed or required for medical reasons: No Currently Displaying Signs/Symptoms of Drug Intoxication Withdrawal: No Have you been hit, kicked, punched, or otherwise hurt by someone within the past year? If so, by whom?: No Do you feel safe in your current relationship?: Yes Is there a partner from a previous relationship who is making you feel unsafe now?: No Are you made to feel afraid or neglected: No Advance Directives: Yes Advance Directives on File: Yes Advance Directives Date on File: 04/29/21 Do you have thoughts of harming others: None Do you have a plan to hurt others: No Plan Recently lost weight without trying: No Nutrition Risks: No Nutritional Risk service: No Current occupational status: retired Meds Allergies Allergy/AdvReac Type Severity Reaction Status Date / Time empagliflozin AdvReac Intermediate reccurent Verified 10/07/22 17:22 [From Jardiance] UTI, hypoglycemia Active Medications: Current Medications Acetaminophen (Acetaminophen 325 Mg Tablet) 650 mg PO Q6H PRN PRN Reason: Pain, Mild (Pain Scale 1-3) Atorvastatin Calcium (Atorvastatin Calcium 40 Mg Tablet) 40 mg PO BEDTIME [facility] Last Admin: 10/10/22 22:43 Dose: 40 mg Dextrose (Dextrose 50 % 25 Gm/50 Ml Syringe) 25 gm IVPUSH Q15M PRN; Protocol PRN Reason: per Hypoglycemia Standing Ord. Last Admin: 10/11/22 16:47 Dose: 25 gm Docusate Sodium (Docusate Sodium 100 Mg Capsule) 100 mg PO DAILY PRN PRN Reason: Constipation Glucose (Glucose Gel 15 Gm Gel..Gram.) 15 gm PO Q15M PRN; Protocol PRN Reason: per Hypoglycemia Standing Ord. Guaifenesin (Guaifenesin 100 Mg/5 Ml Liquid) 5 ml PO Q6H PRN PRN Reason: Cough Ceftriaxone Sodium 2 gm/ (Sodium Chloride) 50 mls @ 100 mls/hr IV Q24H [facility] Last Infusion: 10/11/22 19:18 Dose: Infused Insulin Glargine (Insulin Glargine,Hum.Rec.Anlog 100 Unit/Ml 10 Ml Vial) 15 unit SUBCUT BEDTIME [facility] Last Admin: 10/10/22 22:43 Dose: 15 unit Insulin Human Lispro (Insulin Lispro 100 Unit/Ml 3 Ml Vial) 0 unit SUBCUT QIDACHS [facility]; Protocol Last Admin: 10/11/22 19:16 Dose: Not Given Isosorbide Mononitrate (Isosorbide Mononitrate 60 Mg Tab.Er.24h) 60 mg PO DAILY [facility]; Protocol Last Admin: 10/11/22 09:05 Dose: 60 mg Metoprolol Succinate (Metoprolol Succinate Er 50 Mg Tab.Er.24h) 50 mg PO DAILY [facility]; Protocol Last Admin: 10/11/22 09:05 Dose: 50 mg Omeprazole (Omeprazole 20 Mg Capsule.Dr) 20 mg PO DAILY@0630 [facility] Last Admin: 10/11/22 05:55 Dose: 20 mg Ondansetron HCl (Ondansetron Hcl 4 Mg/2 Ml Vial) 4 mg IVPUSH Q8H PRN PRN Reason: Nausea and Vomiting Pharmacy Consult (Consult Rx Perform Med Rec) 1 each MISCELLANE ONCE PRN PRN Reason: Consult order Sodium Chloride (0.9 % Sodium Chloride Flush 3 Ml Syringe) 3 [facility] Last Admin: 10/11/22 16:47 Dose: 3 ml Home Medications Medication Instructions Recorded Confirmed Last Taken Type pioglitazone 45 mg tablet 1 tab PO DAILY 01/03/20 10/07/22 Unknown History atorvastatin 40 mg tablet 1 tab PO BEDTIME 04/14/21 10/07/22 Unknown History isosorbide mononitrate 60 mg 60 mg PO DAILY 07/17/21 10/07/22 Unknown History tablet,extended release 24 hr apixaban 5 mg tablet (Eliquis) 5 mg PO BID 10/01/21 10/07/22 Unknown History pen needle, diabetic 32 gauge x #50 ea 10/01/21 08/25/22 Unknown History (UltiCare Pen Needle) clopidogrel 75 mg tablet 75 mg PO BEDTIME 08/25/22 10/07/22 Unknown History metoprolol succinate 50 mg 50 mg PO DAILY 08/25/22 10/07/22 Unknown History tablet,extended release 24 hr dulaglutide 0.75 mg/0.5 mL 0.75 mg subcut QWEEK 10/07/22 10/07/22 Unknown History subcutaneous pen injector (Trulicity) pantoprazole 40 mg tablet,delayed 40 mg PO DAILY@0630 10/07/22 10/07/22 Unknown History release Exam Exam Date and Time: October 11, 20222041 Height,Weight and Vital Signs: Height 5 ft 2 in Weight 71.5 kg Last Vital Signs Temp 98.5 F 10/11/22 19:59 Pulse 75 10/11/22 19:59 Resp 20 10/11/22 19:59 BP 157/84 H 10/11/22 19:59 Pulse Ox 97 10/11/22 19:59 O2 Del Method Room Air 10/11/22 19:59 Pertinent Lab Results Pertinent Lab Results: Laboratory Tests 10/07/22 10/07/22 10/07/22 18:08 18:10 18:10 WBC 13.0 H RBC 3.44 L Hgb 10.4 L Hct 33.4 L MCV 97.1 MCH 30.2 MCHC 31.1 RDW 13.2 Plt Count 216 MPV 11.2 Immature Gran % (Auto) 0.5 H Neut % (Auto) 80.0 H Lymph % (Auto) 7.9 L [place] % (Auto) 10.8 Eos % (Auto) 0.5 Baso % (Auto) 0.3 Lymph # (Auto) 1.0 L [place] # (Auto) 1.4 H Eos # (Auto) 0.1 Baso # (Auto) 0.0 Abs Immat Gran (auto) 0.06 H Absolute Neuts (auto) 10.4 H Absolute Nucleated RBC 0.000 Nucleated RBC % (auto) 0.0 Sodium 137 Potassium 4.6 Chloride 104 Carbon Dioxide 22 Anion Gap 16 BUN 46 H Creatinine 3.21 H Estim Creat Clear Calc 16.9 Estimated GFR 19 POC Glucose Random Glucose 381 H* Lactic Acid 2.8 H* Lactic Acid F/U @ 2Hr Calcium 9.1 D Total Bilirubin 0.5 AST 28 ALT 20 Alkaline Phosphatase 90 Total Protein 7.2 Albumin 3.3 L Urine Color Urine Appearance Urine pH Ur Specific [place] Urine Protein Urine Glucose (UA) Urine Ketones Urine Blood Urine Nitrite Ur Leukocyte Esterase Urine RBC Urine WBC Ur Squamous Epith Cells Urine Bacteria Hyaline Casts 10/07/22 10/07/22 10/07/22 20:33 21:17 21:30 WBC RBC Hgb Hct MCV MCH MCHC RDW Plt Count MPV Immature Gran % (Auto) Neut % (Auto) Lymph % (Auto) [place] % (Auto) Eos % (Auto) Baso % (Auto) Lymph # (Auto) [place] # (Auto) Eos # (Auto) Baso # (Auto) Abs Immat Gran (auto) Absolute Neuts (auto) Absolute Nucleated RBC Nucleated RBC % (auto) Sodium Potassium Chloride Carbon Dioxide Anion Gap BUN Creatinine Estim Creat Clear Calc Estimated GFR POC Glucose 324 H 287 H Random Glucose Lactic Acid Lactic Acid F/U @ 2Hr 1.6 Calcium Total Bilirubin AST ALT Alkaline Phosphatase Total Protein Albumin Urine Color Urine Appearance Urine pH Ur Specific [place] Urine Protein Urine Glucose (UA) Urine Ketones Urine Blood Urine Nitrite Ur Leukocyte Esterase Urine RBC Urine WBC Ur Squamous Epith Cells Urine Bacteria Hyaline Casts 10/07/22 10/08/22 10/08/22 22:00 06:51 06:51 WBC 11.7 H RBC 3.10 L Hgb 9.4 L Hct 29.6 L MCV 95.5 MCH 30.3 MCHC 31.8 RDW 13.2 Plt Count 202 MPV 10.8 Immature Gran % (Auto) 0.6 H Neut % (Auto) 77.8 H Lymph % (Auto) 11.8 L [place] % (Auto) 7.8 Eos % (Auto) 1.7 Baso % (Auto) 0.3 Lymph # (Auto) 1.4 [place] # (Auto) 0.9 Eos # (Auto) 0.2 Baso # (Auto) 0.0 Abs Immat Gran (auto) 0.07 H Absolute Neuts (auto) 9.1 H Absolute Nucleated RBC 0.000 Nucleated RBC % (auto) 0.0 Sodium 140 Potassium 4.2 Chloride 111 H Carbon Dioxide 20 L Anion Gap 13 BUN 38 H Creatinine 2.65 H Estim Creat Clear Calc 20.5 Estimated GFR 24 POC Glucose Random Glucose 131 H Lactic Acid Lactic Acid F/U @ 2Hr Calcium 8.4 D Total Bilirubin AST ALT Alkaline Phosphatase Total Protein Albumin Urine Color Yellow Urine Appearance Cloudy Urine pH 6.0 Ur Specific [place] 1.015 Urine Protein 100 (2+) H Urine Glucose (UA) >=1000 H Urine Ketones Negative Urine Blood Large (3+) H Urine Nitrite Negative Ur Leukocyte Esterase Moderate (2+) H Urine RBC >20 H Urine WBC >50 H Ur Squamous Epith Cells 0-2 Urine Bacteria None Seen Hyaline Casts 0-2 10/08/22 10/08/22 10/08/22 07:05 11:12 15:41 WBC RBC Hgb Hct MCV MCH MCHC RDW Plt Count MPV Immature Gran % (Auto) Neut % (Auto) Lymph % (Auto) [place] % (Auto) Eos % (Auto) Baso % (Auto) Lymph # (Auto) [place] # (Auto) Eos # (Auto) Baso # (Auto) Abs Immat Gran (auto) Absolute Neuts (auto) Absolute Nucleated RBC Nucleated RBC % (auto) Sodium Potassium Chloride Carbon Dioxide Anion Gap BUN Creatinine Estim Creat Clear Calc Estimated GFR POC Glucose 122 H 96 221 H Random Glucose Lactic Acid Lactic Acid F/U @ 2Hr Calcium Total Bilirubin AST ALT Alkaline Phosphatase Total Protein Albumin Urine Color Urine Appearance Urine pH Ur Specific [place] Urine Protein Urine Glucose (UA) Urine Ketones Urine Blood Urine Nitrite Ur Leukocyte Esterase Urine RBC Urine WBC Ur Squamous Epith Cells Urine Bacteria Hyaline Casts 10/08/22 10/09/22 10/09/22 20:18 05:52 05:52 WBC 10.7 RBC 3.18 L Hgb 9.5 L Hct 30.3 L MCV 95.3 MCH 29.9 MCHC 31.4 RDW 13.2 Plt Count 216 MPV 10.9 Immature Gran % (Auto) 0.7 H Neut % (Auto) 71.8 Lymph % (Auto) 16.2 L [place] % (Auto) 8.6 Eos % (Auto) 2.4 Baso % (Auto) 0.3 Lymph # (Auto) 1.7 [place] # (Auto) 0.9 Eos # (Auto) 0.3 Baso # (Auto) 0.0 Abs Immat Gran (auto) 0.07 H Absolute Neuts (auto) 7.7 Absolute Nucleated RBC 0.000 Nucleated RBC % (auto) 0.0 Sodium 140 Potassium 4.2 Chloride 108 Carbon Dioxide 22 Anion Gap 14 BUN 39 H Creatinine 2.76 H Estim Creat Clear Calc 19.7 Estimated GFR 23 POC Glucose 195 H Random Glucose 83 Lactic Acid Lactic Acid F/U @ 2Hr Calcium 8.6 Total Bilirubin AST ALT Alkaline Phosphatase Total Protein Albumin Urine Color Urine Appearance Urine pH Ur Specific [place] Urine Protein Urine Glucose (UA) Urine Ketones Urine Blood Urine Nitrite Ur Leukocyte Esterase Urine RBC Urine WBC Ur Squamous Epith Cells Urine Bacteria Hyaline Casts 10/09/22 10/09/22 10/09/22 07:35 11:40 16:24 WBC RBC Hgb Hct MCV MCH MCHC RDW Plt Count MPV Immature Gran % (Auto) Neut % (Auto) Lymph % (Auto) [place] % (Auto) Eos % (Auto) Baso % (Auto) Lymph # (Auto) [place] # (Auto) Eos # (Auto) Baso # (Auto) Abs Immat Gran (auto) Absolute Neuts (auto) Absolute Nucleated RBC Nucleated RBC % (auto) Sodium Potassium Chloride Carbon Dioxide Anion Gap BUN Creatinine Estim Creat Clear Calc Estimated GFR POC Glucose 74 154 H 196 H Random Glucose Lactic Acid Lactic Acid F/U @ 2Hr Calcium Total Bilirubin AST ALT Alkaline Phosphatase Total Protein Albumin Urine Color Urine Appearance Urine pH Ur Specific [place] Urine Protein Urine Glucose (UA) Urine Ketones Urine Blood Urine Nitrite Ur Leukocyte Esterase Urine RBC Urine WBC Ur Squamous Epith Cells Urine Bacteria Hyaline Casts 10/09/22 10/10/22 10/10/22 20:41 07:27 11:03 WBC RBC Hgb Hct MCV MCH MCHC RDW Plt Count MPV Immature Gran % (Auto) Neut % (Auto) Lymph % (Auto) [place] % (Auto) Eos % (Auto) Baso % (Auto) Lymph # (Auto) [place] # (Auto) Eos # (Auto) Baso # (Auto) Abs Immat Gran (auto) Absolute Neuts (auto) Absolute Nucleated RBC Nucleated RBC % (auto) Sodium Potassium Chloride Carbon Dioxide Anion Gap BUN Creatinine Estim Creat Clear Calc Estimated GFR POC Glucose 167 H 74 178 H Random Glucose Lactic Acid Lactic Acid F/U @ 2Hr Calcium Total Bilirubin AST ALT Alkaline Phosphatase Total Protein Albumin Urine Color Urine Appearance Urine pH Ur Specific [place] Urine Protein Urine Glucose (UA) Urine Ketones Urine Blood Urine Nitrite Ur Leukocyte Esterase Urine RBC Urine WBC Ur Squamous Epith Cells Urine Bacteria Hyaline Casts 10/10/22 10/10/22 10/11/22 16:48 20:57 06:16 WBC RBC Hgb Hct MCV MCH MCHC RDW Plt Count MPV Immature Gran % (Auto) Neut % (Auto) Lymph % (Auto) [place] % (Auto) Eos % (Auto) Baso % (Auto) Lymph # (Auto) [place] # (Auto) Eos # (Auto) Baso # (Auto) Abs Immat Gran (auto) Absolute Neuts (auto) Absolute Nucleated RBC Nucleated RBC % (auto) Sodium 140 Potassium 3.8 Chloride 108 Carbon Dioxide 22 Anion Gap 14 BUN 30 H Creatinine 2.11 H Estim Creat Clear Calc 25.8 Estimated GFR 31 POC Glucose 226 H 120 H Random Glucose 69 Lactic Acid Lactic Acid F/U @ 2Hr Calcium 8.6 Total Bilirubin AST ALT Alkaline Phosphatase Total Protein Albumin Urine Color Urine Appearance Urine pH Ur Specific [place] Urine Protein Urine Glucose (UA) Urine Ketones Urine Blood Urine Nitrite Ur Leukocyte Esterase Urine RBC Urine WBC Ur Squamous Epith Cells Urine Bacteria Hyaline Casts 10/11/22 10/11/22 10/11/22 07:56 10:31 11:46 WBC RBC Hgb Hct MCV MCH MCHC RDW Plt Count MPV Immature Gran % (Auto) Neut % (Auto) Lymph % (Auto) [place] % (Auto) Eos % (Auto) Baso % (Auto) Lymph # (Auto) [place] # (Auto) Eos # (Auto) Baso # (Auto) Abs Immat Gran (auto) Absolute Neuts (auto) Absolute Nucleated RBC Nucleated RBC % (auto) Sodium Potassium Chloride Carbon Dioxide Anion Gap BUN Creatinine Estim Creat Clear Calc Estimated GFR POC Glucose 66 145 H 123 H Random Glucose Lactic Acid Lactic Acid F/U @ 2Hr Calcium Total Bilirubin AST ALT Alkaline Phosphatase Total Protein Albumin Urine Color Urine Appearance Urine pH Ur Specific [place] Urine Protein Urine Glucose (UA) Urine Ketones Urine Blood Urine Nitrite Ur Leukocyte Esterase Urine RBC Urine WBC Ur Squamous Epith Cells Urine Bacteria Hyaline Casts 10/11/22 10/11/22 10/11/22 16:05 19:16 20:09 WBC RBC Hgb Hct MCV MCH MCHC RDW Plt Count MPV Immature Gran % (Auto) Neut % (Auto) Lymph % (Auto) [place] % (Auto) Eos % (Auto) Baso % (Auto) Lymph # (Auto) [place] # (Auto) Eos # (Auto) Baso # (Auto) Abs Immat Gran (auto) Absolute Neuts (auto) Absolute Nucleated RBC Nucleated RBC % (auto) Sodium Potassium Chloride Carbon Dioxide Anion Gap BUN Creatinine Estim Creat Clear Calc Estimated GFR POC Glucose 75 137 H 114 Random Glucose Lactic Acid Lactic Acid F/U @ 2Hr Calcium Total Bilirubin AST ALT Alkaline Phosphatase Total Protein Albumin Urine Color Urine Appearance Urine pH Ur Specific [place] Urine Protein Urine Glucose (UA) Urine Ketones Urine Blood Urine Nitrite Ur Leukocyte Esterase Urine RBC Urine WBC Ur Squamous Epith Cells Urine Bacteria Hyaline Casts Airway Mallampati Class: III TM Dist: >3cm Neck ROM: Full Denture: Upper and Lower Heart: RRR Lungs: CTA Assessment and Plan Assessment Anesthesia Assessment: Anesthesia Plan Discussed Final Anesthetic Review Family History of Problems with Anesthesia: No History of Problems with Anesthesia: No NPO: Yes ASA Class: III and Emergency Final Preanesthetic Review: Meds/Allgs Chart Reviewed, Consent Obtained/Reviewed and Anes Risks/Benef Reviewed Patient Risk: Intermediate Procedure Risk: Low Anesthetic Plan Anesthetic Plan: GA Disposition: Standard PACU
--- NOTE | 2022-10-11 22:50 | W.PM.OPN ---
Operative Note Operative Note Date of Service: 10/11/22 Narrative: PreOperative Diagnosis: left indwelling stent Post Operative Diagnosis: left indwelling stent Procedure: cystoscopy stent removal Surgeon: Dr Camden Winchester Anesthesia: Indications for procedure: Procedure: After informed consent was verified the patient was brought to the operating room and placed in a supine position. Anesthesia was administered per protocol. The patient was placed in modified dorsal lithotomy position and prepped and draped in a sterile fashion. A safety pause time-out was performed. Laterality of procedure and antibiotics were confirmed, appropriate imaging was available A 22 [place] cystoscope was introduced per urethra. No abnormality was noted of urethra or bladder. Both ureteric orifices were seen in a normal position. stent seen emerging from left stent Stent grasped and removed The patient tolerated the procedure well and was transferred in a stable condition to the recovery area. Pathology: [] Drains: []
[2022-10-11 23:32] LABS: Glucose, Whole Blood 72 mg/dL (60-115)
[2022-10-11] MEDS: Atorvastatin Calcium 40 MG TABLET PO (23:39)
[2022-10-12] MEDS: 0.9 % Sodium Chloride Flush 3 ML SYRINGE IVFLUSH ×2 (00:25→10:42)
[2022-10-12 03:34] VITALS: BP 134/71; PULSE 75; RESP 16; TEMP 36.8; O2SAT 95
[2022-10-12] MEDS: Omeprazole 20 MG CAPSULE.DR PO (05:25)
[2022-10-12 07:00] VITALS: BP 149/77; PULSE 60; RESP 16; TEMP 37; O2SAT 95
[2022-10-12 07:25] LABS: Glucose, Whole Blood 123 mg/dL (60-115)
--- NOTE | 2022-10-12 09:10 | HO.POSTANES ---
Post Anesthesia Evaluation Post Anesthesia Evaluation Date of Service: 10/12/22 Vital Signs: Vital Signs Temp Pulse Resp BP Pulse Ox O2 Del Method O2 Flow Rate 10/12/22 07:00 98.6 F 60 16 149/77 H 95 Room Air 10/12/22 03:34 98.2 F 75 16 134/71 95 Room Air 10/11/22 23:33 80 18 159/79 H 98 Room Air 10/11/22 23:16 97 F 72 14 144/75 H 100 Nasal Cannula 2 10/11/22 23:01 97 F 75 13 122/74 100 Nasal Cannula 2 Anesthesia: Monitored Mental Status: Awake Pain Control: Satisfactory Nausea/Vomiting: None Hydration: Adequate Anesthesia-Related Issues: No Anes. Related Issues
[2022-10-12] MEDS: Isosorbide Mononitrate 60 MG TAB.ER.24H PO (10:42)
[2022-10-12] MEDS: Metoprolol Succinate ER 50 MG TAB.ER.24H PO (10:42)
[2022-10-12 11:00] VITALS: BP 139/70; PULSE 80; RESP 16; TEMP 36; O2SAT 98
[2022-10-12 11:07] LABS: Glucose, Whole Blood 174 mg/dL (60-115)
--- NOTE | 2022-10-12 11:49 | P.CNID_ITS ---
History of Present Illness Data of Consult Service Date: 10/12/22 Requesting physician: Karli Ruvalcaba Primary Care Provider: Charlene Delgado MD HPI Reason for consult: UTI,CRI,COVID He presents with weakness and nausea and was called back gram negative sherrell E coli blood. He has no fever or chills. COVID test is positive. Review of Systems Review of Systems: Yes all other systems are reviewed and are negative PMFSH Past Medical History Medical History A-fib Chronic renal failure, stage 4 (severe) Diabetes 1.5, managed as type 2 Glucosuria High cholesterol Hypertension PAF (paroxysmal atrial fibrillation) Family History Family History Other No family history of coronary artery disease Family history: reviewed and not pertinent Surgical History Surgical History No pertinent past surgical history Social History Social History Household Members: Family Housing: House Do you presently have visiting nurse or other home services: Yes Alcohol intake: never Patient Tobacco Use Status: Never used Tobacco e-Cigarette/Vaping Use: Never Used Advance Directives Date on File: 04/29/21 service: No Current occupational status: retired Meds Allergies Allergy/AdvReac Type Severity Reaction Status Date / Time empagliflozin AdvReac Intermediate reccurent Verified 10/07/22 17:22 [From Jardiance] UTI, hypoglycemia Active Medications: Current Medications Acetaminophen (Acetaminophen 325 Mg Tablet) 650 mg PO Q6H PRN PRN Reason: Pain, Mild (Pain Scale 1-3) Atorvastatin Calcium (Atorvastatin Calcium 40 Mg Tablet) 40 mg PO BEDTIME RADHA Last Admin: 10/11/22 23:39 Dose: 40 mg Dextrose (Dextrose 50 % 25 Gm/50 Ml Syringe) 25 gm IVPUSH Q15M PRN; Protocol PRN Reason: per Hypoglycemia Standing Ord. Last Admin: 10/11/22 16:47 Dose: 25 gm Docusate Sodium (Docusate Sodium 100 Mg Capsule) 100 mg PO DAILY PRN PRN Reason: Constipation Glucose (Glucose Gel 15 Gm Gel..Gram.) 15 gm PO Q15M PRN; Protocol PRN Reason: per Hypoglycemia Standing Ord. Guaifenesin (Guaifenesin 100 Mg/5 Ml Liquid) 5 ml PO Q6H PRN PRN Reason: Cough Ceftriaxone Sodium 2 gm/ (Sodium Chloride) 50 mls @ 100 mls/hr IV Q24H [facility] Last Infusion: 10/11/22 19:18 Dose: Infused Insulin Glargine (Insulin Glargine,Hum.Rec.Anlog 100 Unit/Ml 10 Ml Vial) 15 unit SUBCUT BEDTIME [facility] Last Admin: 10/11/22 23:47 Dose: Not Given Insulin Human Lispro (Insulin Lispro 100 Unit/Ml 3 Ml Vial) 0 unit SUBCUT QIDACHS [facility]; Protocol Last Admin: 10/12/22 10:40 Dose: Not Given Isosorbide Mononitrate (Isosorbide Mononitrate 60 Mg Tab.Er.24h) 60 mg PO DAILY [facility]; Protocol Last Admin: 10/12/22 10:42 Dose: 60 mg Metoprolol Succinate (Metoprolol Succinate Er 50 Mg Tab.Er.24h) 50 mg PO DAILY [facility]; Protocol Last Admin: 10/12/22 10:42 Dose: 50 mg Omeprazole (Omeprazole 20 Mg Capsule.Dr) 20 mg PO DAILY@0630 [facility] Last Admin: 10/12/22 05:25 Dose: 20 mg Ondansetron HCl (Ondansetron Hcl 4 Mg/2 Ml Vial) 4 mg IVPUSH Q8H PRN PRN Reason: Nausea and Vomiting Pharmacy Consult (Consult Rx Perform Med Rec) 1 each MISCELLANE ONCE PRN PRN Reason: Consult order Sodium Chloride (0.9 % Sodium Chloride Flush 3 Ml Syringe) 3 ml IVFLUSH QSHIFT [facility] Last Admin: 10/12/22 10:42 Dose: 3 ml Home Medications Medication Instructions Recorded Confirmed Last Taken Type pioglitazone 45 mg tablet 1 tab PO DAILY 01/03/20 10/07/22 Unknown History atorvastatin 40 mg tablet 1 tab PO BEDTIME 04/14/21 10/07/22 Unknown History isosorbide mononitrate 60 mg 60 mg PO DAILY 07/17/21 10/07/22 Unknown History tablet,extended release 24 hr apixaban 5 mg tablet (Eliquis) 5 mg PO BID 10/01/21 10/07/22 Unknown History pen needle, diabetic 32 gauge x #50 ea 10/01/21 08/25/22 Unknown History (UltiCare Pen Needle) clopidogrel 75 mg tablet 75 mg PO BEDTIME 08/25/22 10/07/22 Unknown History metoprolol succinate 50 mg 50 mg PO DAILY 08/25/22 10/07/22 Unknown History tablet,extended release 24 hr dulaglutide 0.75 mg/0.5 mL 0.75 mg subcut QWEEK 10/07/22 10/07/22 Unknown History subcutaneous pen injector (Trulicity) pantoprazole 40 mg tablet,delayed 40 mg PO DAILY@0630 10/07/22 10/07/22 Unknown History release Physical Exam Vital Signs: Vital Signs: Last Vital Signs Temp 96.8 F 10/12/22 11:00 Pulse 80 10/12/22 11:00 Resp 16 10/12/22 11:00 BP 139/70 10/12/22 11:00 Pulse Ox 98 10/12/22 11:00 O2 Del Method Room Air 10/12/22 11:00 O2 Flow Rate 2 10/11/22 23:16 BMI result Body Mass Index 28.8 Const: General: cooperative HEENT: Head: Yes normal to inspection Face and sinus: Yes normal facial exam Mouth: Normal oral and palatal mucosa present Teeth and gingiva: dentition normal Eyes: General: appearance normal, both eyes and all related structures Pupils: Equal, round and reactive pupils present Resp: Effort & Inspection: normal respiratory effort Cardio: Rate: regular rate Rhythm: regular rhythm GI: Palpation (GI): Soft to palpation and nontender : General: Yes no CVA tenderness Back/Spine/Pelvis: Back: no CVA tenderness Skin: General skin exam: no rashes or lesions noted Neuro: General: moves all extremities Cranial nerves: Yes Equal, round and reactive pupils present Extrem: General: Yes normal to inspection Psych: Appearance: grossly normal Results Labs 10/09/22 05:52 10/11/22 06:16 Microbiology Microbiology Results: Microbiology 10/07/22 18:16 Blood - Venous Blood Culture - Preliminary No growth after 48 hours. 10/07/22 18:10 Blood - Venous Blood Culture - Preliminary No growth after 48 hours. Assessment and Plan (1) Bacteremia due to Gram-negative bacteria: Status: Acute He has no fever and is apparently feeling better. He has COVID but no respiratory compromise. He has had urinary symptoms but also BPH. (2) COVID-19: Status: Acute (3) Ureteral stent present: Status: Acute Plan See Urology follow up stents,?prostate concerns. Would also continue Ceftriaxone and on discharge change to po although with CRI it may be easier to dose Levaquin per renal dose adjustment for total 14 days outpatient or 30 d if Urology feels prostate involved. No treatment for COVID prophylactic since not sure onset and no therapeutic treatment since Paxlovid would do more harm than good interacting with apixaban for example and patient is not hypoxic and not sure interval so no Remdesivir. Time Spent With Patient Time: Total time managing care of this patient today ____ minutes.
[2022-10-12] MEDS: Insulin Lispro 100 UNIT/ML 3 ML VIAL SUBCUT (13:01)
--- NOTE | 2022-10-12 14:34 | P.DS_ITS ---
DS: Providers Provider Date of Service: 10/12/22 Date of admission: 10/07/22 18:22 Date of discharge: 10/12/22 Primary care physician: Charlene Delgado MD Consults: 10/07/22 18:47 Consult to Urology Routine Consulting Provider: [place] Reason for consultation: UTI/GNR bacteremia left. left stent in place Has provider been notified: No 10/12/22 11:07 Consult to Infectious Diseases Routine Consulting Provider: [facility] Infectious Disease Reason for consultation: E. 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 Hospital course: Patient admitted for sepsis secondary to UTI-started on IV antibiotics, blood cultures sent. With antibiotic therapy patient seems to be improved significantly-Urology: Removed stent from left-sided. Seen by infectious disease and urology(recomended 2 weeks antibiotics because less likely prostate involvement concern) : Patient will be going home with p.o. Levaquin for 14 days (adjusted as per renal function), further management outpatient. Patient was advised to follow-up with Urology outpatient. Patient has CKD 4: Monitor renal function and electrolytes outpatient In addition patient was found to have COVID positive but chest x-ray negative and asymptomatic. self isolation recomended for 1 week. Plan: complete course of levaquin for 14 days ( levaquin 750 mg q48hrs ) ,follow up with urology outpatient. Follow-up renal function out patiently Above management discussed with the patient in detail length with director commercial sales-he understand and in agreement with the above plan, time spent 50 minutes and 50% time spent on counseling. Time Spent with Patient Time attestation: Total time managing care of this patient today ____ minutes. Discharge coordination time: Greater than 30 minutes Quality: Safe Use of Opioids Does Pt have an Active Cancer Diagnosis on the Problem List?: No Quality: Stroke Does the patient have a stroke diagnosis?: No Physical Exam Vital Signs: Vital Signs: Last Vital Signs Temp 96.8 F 10/12/22 11:00 Pulse 80 10/12/22 11:00 Resp 16 10/12/22 11:00 BP 139/70 10/12/22 11:00 Pulse Ox 98 10/12/22 11:00 O2 Del Method Room Air 10/12/22 11:00 O2 Flow Rate 2 10/11/22 23:16 BMI result Body Mass Index 28.8 ?Appearing in no acute distress ?lung sounds are clear to auscultation ?heart regular rate rhythm, clear? S1, S2 ?positive bowel sounds, abdomen is soft, nontender ?neuro patient is alert x3, no focal deficits DS: Data Data Completed and Pending Completed studies during hospitalization [Text1]: Procedures Destruction of Bladder, Via Natural or Artificial Opening Endoscopic (04/14/21) Dilation of Bilateral Ureters with Intraluminal Device, Via Natural or Artificial Opening Endoscopic (04/14/21) Fluoroscopy of Kidneys, Ureters and Bladder (04/14/21) Transfusion of Nonautologous Red Blood Cells into Peripheral Vein, Percutaneous Approach (04/14/21) Labs on day of discharge: Laboratory Results - last 24 hr 10/11/22 10/11/22 10/11/22 16:05 19:16 20:09 POC Glucose 75 137 H 114 10/11/22 10/12/22 10/12/22 23:27 07:13 11:01 POC Glucose 72 123 H 174 H Preliminary micro results at discharge 10/07/22 18:16 Blood Culture - Preliminary Blood - Venous No growth after 48 hours. 10/07/22 18:10 Blood Culture - Preliminary Blood - Venous No growth after 48 hours. Imaging Chest x-ray: Radiologist's impression: ITS Impressions Guidance Fluoroscopy 10/11/22 22:51 IMPRESSION: Fluoroscopic guidance for left ureteral stent removal. Discharge Plan Discharge Anticipated Discharge Date/Time: 10/09/22 11:51 Patient Disposition: Home, Self-Care Discharge Diagnosis: Gram-negative sherrell bacteremia and sepsis sec to UTI, COVID- 19,urinary stent removal. Referrals: Charlene Delgado MD [Primary Care Provider] - 1 Week Discharge Medications: New levofloxacin 750 mg Tablet 750 mg PO Q48H Qty: 7 0RF Continued pioglitazone 45 mg tablet 1 tab PO DAILY atorvastatin 40 mg tablet 1 tab PO BEDTIME pantoprazole 40 mg tablet,delayed release (DR/EC) 40 mg PO DAILY@0630 Trulicity 0.75 mg/0.5 mL pen injector 0.75 mg subcut QWEEK isosorbide mononitrate 60 mg tablet extended release 24 hr 60 mg PO DAILY Eliquis 5 mg tablet 5 mg PO BID (DME) pen needle, diabetic [UltiCare Pen Needle] 32 gauge x 5/32 needle See Rx Instructions .ROUTE QID Qty: 50 Rx Instructions: As directed metoprolol succinate 50 mg tablet extended release 24 hr 50 mg PO DAILY clopidogrel 75 mg tablet 75 mg PO BEDTIME Discharge Orders: Discharge Order (Routine); Ordered 10/12/22 Ordered By: Karli Ruvalcaba Diet: Advance to usual diet Activity on Discharge: As tolerated Stand Alone Forms: Patient Portal Discharge page Care Plan Goals: Patient admitted for sepsis secondary to UTI-started on IV antibiotics, blood cultures sent. With antibiotic therapy patient seems to be improved significantly-Urology: Removed stent from left-sided. Seen by infectious disease and urology : Patient will be going home with p.o. Levaquin for 14 days (adjusted as per renal function), further management outpatient. Patient was advised to follow-up with Urology outpatient. Patient has CKD 4: Monitor renal function and electrolytes outpatient In addition patient was found to have COVID positive but chest x-ray negative and asymptomatic. self isolation recomended for 1 week. Health Concerns: as above. Plan of Treatment: as above. Assessment: as above.
--- NOTE | 2022-10-12 14:37 | MHC.CM.PN ---
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 FAMILY AT BEDSIDE WILL TRANSPORT
[2022-10-12] MEDS: levoFLOXacin 750 MG TABLET PO (15:51)
== END 2022-10-12 16:04 | disposition home or self-care (01) | DRG 871 ==
LOC: HO.ED 17:50 → HO.EDOVER 18:50 → HO.IMC 19:14
PROVIDERS: Nurse Practitioner Acute Care; Registered Nurse Emergency; Urology; Admitting Provider Physician Assistant Medical; Emergency Provider Internal Medicine; PCP Internal Medicine; Visit Provider Internal Medicine
PROC: 0TP98DZ Removal of Intraluminal Device from Ureter, Via Natural or Artificial Opening Endoscopic (ICD-10-PCS; CPT 52310; principal; 2022-10-11 20:00)
DX: A41.51 Sepsis due to Escherichia coli [E. coli] (principal); U07.1 COVID-19; N18.4 Chronic kidney disease, stage 4 (severe); N39.0 Urinary tract infection, site not specified; I12.9 Hypertensive chronic kidney disease with stage 1 through stage 4 chronic kidney disease, or unspecified chronic kidney disease; E13.22 Other specified diabetes mellitus with diabetic chronic kidney disease; I48.0 Paroxysmal atrial fibrillation; E13.65 Other specified diabetes mellitus with hyperglycemia; D63.1 Anemia in chronic kidney disease; N40.0 Benign prostatic hyperplasia without lower urinary tract symptoms; E78.00 Pure hypercholesterolemia, unspecified; Z87.440 Personal history of urinary (tract) infections; Z86.73 Personal history of transient ischemic attack (TIA), and cerebral infarction without residual deficits; Z79.01 Long term (current) use of anticoagulants; Z79.02 Long term (current) use of antithrombotics/antiplatelets; Z79.85 Long-term (current) use of injectable non-insulin antidiabetic drugs; Z79.899 Other long term (current) drug therapy
CPT/HCPCS: 36415; 80048; 80053; 81001; 82947; 83605; 85025; 87040; 97161; 99285; J0696; J2250; Q9967

== ENCOUNTER → 2022-10-07 18:22 | Outpatient (BNV) | payer OTHER, SELFPAY | PROVIDERS: Admitting Provider Physician Assistant Medical; Emergency Provider Internal Medicine; PCP Internal Medicine; Visit Provider Internal Medicine | DX: R78.81 Bacteremia (principal); U07.1 COVID-19; Z96.0 Presence of urogenital implants | CPT/HCPCS: 99222 ==

== ENCOUNTER → 2022-10-07 18:22 | Outpatient (BNV) | payer OTHER, SELFPAY | PROVIDERS: Admitting Provider Physician Assistant Medical; Emergency Provider Internal Medicine; PCP Internal Medicine; Visit Provider Physician Assistant Medical | DX: R78.81 Bacteremia (principal); U07.1 COVID-19; Z96.0 Presence of urogenital implants | CPT/HCPCS: 99223; 99232; 99233; 99239 ==

== ENCOUNTER → 2022-10-07 18:22 | Outpatient (BNV) | payer OTHER, SELFPAY | PROVIDERS: Admitting Provider Physician Assistant Medical; Emergency Provider Internal Medicine; PCP Internal Medicine; Visit Provider Urology | DX: N13.30 Unspecified hydronephrosis (principal); Z96.0 Presence of urogenital implants | CPT/HCPCS: 52310 ==

== ENCOUNTER 2022-12-10 12:05 | Emergency (ER) | payer OTHER, SELFPAY ==
[2022-12-10 12:15] VITALS: BP 155/91; PULSE 91; RESP 18; TEMP 36.6; O2SAT 100; BMI 32.3
--- NOTE | 2022-12-10 12:20 | ED.BACK ---
HPI - Back Pain/Injury General Chief Complaint: Extremity Injury, Lower Stated Complaint: R Side Pain Radiating to Leg Time Seen by Provider: 12/10/22 12:25 Source: patient and old records reviewed Mode of arrival: ambulatory Limitations: no limitations History of Present Illness HPI Narrative: 77 yo English speaking male presents ot the ER for evaluation of nontraumatic left hip pain that radiates down his left leg for the last 3 days. No falls or trauma. he states the pain is also located in his left lower back and sometimes the buttock. It radiates all the way down to his foot. He is able to walk with his cane, which he uses chronically. he had not taken any meds for the pain. no urinary symptoms. no weakness, numbness in the leg. no urinary or bowel incontinence. MD elicited complaint: back pain and other (left hip pain) Onset (ago): day(s) (3) Timing: intermittent Severity: moderate Quality: stabbing and aching Location: left lower back Radiation: buttocks and left leg below the knee Exacerbating factors: movement and walking Relieving factors: immobilization Context: unknown Associated symptoms: denies other symptoms Work related injury: No Related Data Home Medications Medication Instructions Recorded Confirmed pioglitazone 45 mg tablet 1 tab PO DAILY 01/03/20 10/07/22 atorvastatin 40 mg tablet 1 tab PO BEDTIME 04/14/21 10/07/22 isosorbide mononitrate 60 mg 60 mg PO DAILY 07/17/21 10/07/22 tablet,extended release 24 hr apixaban 5 mg tablet (Eliquis) 5 mg PO BID 10/01/21 10/07/22 pen needle, diabetic 32 gauge x #50 ea 10/01/21 08/25/22 (UltiCare Pen Needle) clopidogrel 75 mg tablet 75 mg PO BEDTIME 08/25/22 10/07/22 metoprolol succinate 50 mg 50 mg PO DAILY 08/25/22 10/07/22 tablet,extended release 24 hr dulaglutide 0.75 mg/0.5 mL 0.75 mg subcut QWEEK 10/07/22 10/07/22 subcutaneous pen injector [facility]) pantoprazole 40 mg tablet,delayed 40 mg PO DAILY@0630 10/07/22 10/07/22 release Previous Rx's Medication Instructions Recorded levofloxacin 750 mg tablet 750 mg PO Q48H #7 tabs 10/12/22 acetaminophen 650 mg 650 mg PO Q8H PRN pain #30 tabs 12/10/22 tablet,extended release (Tylenol 8 Hour) cyclobenzaprine 5 mg tablet 5 mg PO BID PRN muscle spasm #10 12/10/22 tabs prednisone 20 mg tablet 40 mg (2 x 20 mg) PO DAILY #10 tabs 12/10/22 Allergies Allergy/AdvReac Type Severity Reaction Status Date / Time empagliflozin AdvReac Intermediate reccurent Verified 12/10/22 12:24 [From Jardiance] UTI, hypoglycemia Review of Systems Review of Systems: Yes all other systems are reviewed and are negative [facility] Past Medical History Medical History A-fib Chronic renal failure, stage 4 (severe) Diabetes 1.5, managed as type 2 Glucosuria High cholesterol Hypertension PAF (paroxysmal atrial fibrillation) Surgical History No pertinent past surgical history Family History Family History Other No family history of coronary artery disease Social History Social History Household Members: Family Housing: House Do you presently have visiting nurse or other home services: Yes Alcohol intake: never Patient Tobacco Use Status: Never used Tobacco e-Cigarette/Vaping Use: Never Used Advance Directives: Yes Advance Directives on File: Yes Advance Directives Date on File: 04/29/21 service: No Current occupational status: retired Physical Exam Vital Signs: Vital Signs: Last Vital Signs Temp 97.8 F 12/10/22 12:15 Pulse 91 12/10/22 12:15 Resp 18 12/10/22 12:15 BP 155/91 H 12/10/22 12:15 Pulse Ox 100 12/10/22 12:15 O2 Del Method Room Air 12/10/22 12:15 BMI result Body Mass Index 32.3 Appearance: Alert. Oriented X3. No acute distress. HEENT: normal inspection CVS: Normal heart rate and rhythm. Pulses normal. Respiratory: No respiratory distress. Skin: Skin warm and dry. Normal skin color. Normal skin turgor. No rashes. Extremities: normal inspection of bilateral LE. limited flexion of the hip. no tenderness laterally. +tenderness to the left SI joint and left lower lumbar area Neuro: Oriented X 3. No motor deficit. No sensory deficit. Slow but steady gait Course Course Course Narrative: This is an RME: Additional HPI, ROS, PE not included below will be deferred to primary provider. Patient is a 77-year-old male presents emergency department for evaluation of left hip pain radiating to the foot. Constant x 2 days. Exacerbated by weight bearing. Atraumatic. Denies back pain, ABD pain, hx DVT/PE/ mailgnancy. Plan: XR hip Medications Administered Discontinued Medications Generic Name Dose Route Start Last Admin Trade Name Wilfredo PRN Reason Stop Dose Admin Acetaminophen 975 mg 12/10/22 12:27 12/10/22 12:30 Acetaminophen 325 Mg Tablet PO 12/10/22 12:28 975 mg ONCE ONE Administration Medical Decision Making Medical Decision Making MDM Narrative: 77 yo male presenting with left hip pain, left lower back pain radiating to LLE. No red flag symptoms of low back pain. XR with mild degenerative changes. he is ambulatory. he was given tylenol in the ER with improvement in his pain. stable for d/c home with outpatient follow up. Differential Diagnosis Differential Diagnoses: The differential diagnosis associated with the presentation includes OA, hip fracture, sciatica, lumbar radiculopathy Independent Interpretation I performed an independent interpretation of an: Plain X-Ray Interpretation: no acute fracture or dislocation, agree w/ radiology read Radiology Impression Discussion of test interpretation with radiology: I have reviewed the radiologist's reading. Radiologist Impression: EXAMINATION: XR PELVIS XR HIP, LEFT CLINICAL INFORMATION: Left hip pain. COMPARISON: CT abdomen and pelvis from 10/06/2022. TECHNIQUE: 2 AP views of the pelvis. 2 views of the left hip (AP and lateral) FINDINGS: Pelvis: No fracture or dislocation of the pelvis. The iliopectineal, ilioischial, and sacral arcuate lines remain intact. The sacroiliac joints remain in normal alignment on the limited view. Mild degenerative arthropathy of the pubic symphysis. The femoral heads remain well aligned with their respective acetabula on the single AP view. No radiopaque foreign bodies. Left Hip: No fracture or dislocation of the left hip. The femoral head remains well-seated in the acetabulum. The trabecular lines remain intact. Mild degenerative arthropathy of the left hip joint. Otherwise, the joint space is well-preserved. No lytic or sclerotic osseous lesions. No focal soft tissue swelling. No radiopaque foreign bodies. Vascular calcifications. XR/XR hip LT w PEL1V IMPRESSION: 1. No evidence of acute fracture or dislocation of the pelvis or left hip. 2. Mild degenerative arthropathy of the left hip. External Record Review External record reviewed: Outpatient record, Prior outpatient labs and Prior outpatient radiology Prescription Management I considered prescription management with: Pain Medication Critical Care Time Critical Care Time Critical Care Time: No Discharge Plan Discharge Clinical Impression: Acute left lumbar radiculopathy Acute hip pain Qualifiers: Laterality: left Qualified Code(s): M25.552 - Pain in left hip Patient Disposition: Home, Self-Care Instructions: Lumbar Radiculopathy (ED), Hip Pain (ED) Additional Instructions: Your x-ray showed some arthritic changes to your hip Your pain may be due to nerve compression. Recommend rest. No strenuous activity No bending, lifting or twisting. Use ice several times per day for 20 minutes at a time for the next 48 hours and then change to heat. Take medications as prescribed to help with pain and discomfort. Follow up with your Primary Care Doctor this week. If your pain worsens, if you develop new numbness, tingling, weakness, loss of function or incontinence call 911 or come back to the ER right away for evaluation. Villalba radiograf?a mostr? algunos cambios artr?ticos en villalba cadera. Villalba dolor puede deberse a la compresi?n del nervio. Recomendar descanso. Sin actividad extenuante Sin doblar, levantar ni torcer. Use hielo varias veces al d?a govind 20 minutos a la vez govind las siguientes 48 horas y luego c?mbielo a calor. [place] los medicamentos recetados para ayudar con el dolor y el malestar. Melania un seguimiento con villalba m?dico de atenci?n primaria esta semana. Si villalba dolor empeora, si desarrolla nuevo entumecimiento, hormigueo, debilidad, p?rdida de funci?n o incontinencia, llame al 911 o regrese a la [place] de emergencias de inmediato para be evaluaci?n. Prescriptions: New prednisone 20 mg tablet 40 mg PO DAILY Qty: 10 0RF cyclobenzaprine 5 mg tablet 5 mg PO BID PRN (Reason: muscle spasm) Qty: 10 0RF acetaminophen [Tylenol 8 Hour] 650 mg tablet extended release 650 mg PO Q8H PRN (Reason: pain) Qty: 30 0RF No Action pioglitazone 45 mg tablet 1 tab PO DAILY atorvastatin 40 mg tablet 1 tab PO BEDTIME pantoprazole 40 mg tablet,delayed release (DR/EC) 40 mg PO DAILY@0630 Trulicity 0.75 mg/0.5 mL pen injector 0.75 mg subcut QWEEK levofloxacin 750 mg Tablet 750 mg PO Q48H Qty: 7 0RF isosorbide mononitrate 60 mg tablet extended release 24 hr 60 mg PO DAILY Eliquis 5 mg tablet 5 mg PO BID (DME) pen needle, diabetic [UltiCare Pen Needle] 32 gauge x 5/32 needle See Rx Instructions .ROUTE QID Qty: 50 Rx Instructions: As directed metoprolol succinate 50 mg tablet extended release 24 hr 50 mg PO DAILY clopidogrel 75 mg tablet 75 mg PO BEDTIME Referrals: Charlene Delgado MD [Primary Care Provider] - Interventions: ED Discharge Assessment Last Done: 12/10/22 15:29 Discharge Date/Time: 12/10/22 15:29 Print Language: English
--- NOTE | 2022-12-10 12:32 | PC.NURSE ---
pt comes in today d/t left hip pain that radiates towards entire LLE. pt denies numbness/tingling at this time. pt verbalizes that he has chronic swelling in ankles/feet bilaterally and that this is nothing new. pt also reports difficulty walking and uses a cane to ambulate a normally. pt medicated per provider order. will reassess pain level shortly. resting comfortably in no apparent distress.
--- NOTE | 2022-12-10 13:33 | PC.NURSE ---
pt's pain level reassessed. pt stating pain level decreased to 1/10 post medication administration.
== END 2022-12-10 15:29 | disposition home or self-care (01) ==
PROVIDERS: Emergency Provider Emergency Medicine; PCP Internal Medicine
DX: M54.16 Radiculopathy, lumbar region (principal); M25.552 Pain in left hip; E13.22 Other specified diabetes mellitus with diabetic chronic kidney disease; I12.9 Hypertensive chronic kidney disease with stage 1 through stage 4 chronic kidney disease, or unspecified chronic kidney disease; N18.4 Chronic kidney disease, stage 4 (severe); E78.5 Hyperlipidemia, unspecified; I48.0 Paroxysmal atrial fibrillation; Z79.01 Long term (current) use of anticoagulants; Z79.899 Other long term (current) drug therapy; Z79.85 Long-term (current) use of injectable non-insulin antidiabetic drugs
CPT/HCPCS: 73502; 99283

== ENCOUNTER 2023-01-25 09:45 | Outpatient (REF) | payer OTHER, SELFPAY ==
[2023-01-25 11:37] LABS: Cholesterol 147 mg/dL (<200); HDL Cholesterol 32 mg/dL (>40); LDL Cholesterol Calculated 96 mg/dL (<100); Triglycerides 97 mg/dL (<150)
[2023-01-25 11:40] LABS: Anion Gap 9 (12-20); Blood Urea Nitrogen 41 mg/dL (9-16); Calcium 9.5 mg/dL (8.4-10.2); Carbon Dioxide 25 mmol/L (22-29); Chloride 107 mmol/L (96-108); Estimated Glomerular Filt Rate 28; Glucose Random 128 mg/dL (60-115); Potassium 4.1 mmol/L (3.3-5.1); Sodium 137 mmol/L (135-145)
[2023-01-25 11:52] LABS: Vitamin D 25-OH Total 25.7 ng/mL (>30)
[2023-01-25 12:09] LABS: Reflex LDLD? No
== END 2023-01-25 09:46 | disposition home or self-care (01) ==
LOC: HO.HHCL 09:45
PROVIDERS: Visit Provider Internal Medicine
DX: E11.65 Type 2 diabetes mellitus with hyperglycemia (principal); Z79.4 Long term (current) use of insulin; E87.5 Hyperkalemia; E78.5 Hyperlipidemia, unspecified; E55.9 Vitamin D deficiency, unspecified; E66.9 Obesity, unspecified; I99.8 Other disorder of circulatory system; I10 Essential (primary) hypertension
CPT/HCPCS: 36415; 80048; 80061; 82306

== ENCOUNTER 2023-01-31 09:55 | Outpatient (REF) | payer OTHER, SELFPAY ==
[2023-01-31 11:11] LABS: MANUAL DIFF FLAG NO
[2023-01-31 11:31] LABS: Basophils Absolute Auto 0.1 X10*3/uL (0.0-0.2); Basophils Percent Auto 0.7 % (0-2); Eosinophils Absolute Auto 0.5 X10*3/uL (0.0-0.4); Hematocrit 38.5 % (42.0-52.0); Hemoglobin 12.3 g/dl (14.0-18.0); Imm Gran Abs Auto 0.02 X10*3/uL (0.00-0.03); Imm Gran Pct Auto 0.3 % (0.0-0.4); Lymphocytes Absolute Auto 1.5 X10*3/uL (1.2-4.9); Lymphocytes Percent Auto 21.4 % (20-40); Mean Corpuscular HGB Conc 31.9 g/dl (31.0-36.0); Mean Corpuscular Hemoglobin 30.8 pg (27.0-33.0); Mean Corpuscular Volume 96.3 fL (80.0-98.0); Mean Platelet Volume 11.6 fL (9.4-12.4); Monocytes Absolute Auto 0.8 X10*3/uL (0.1-1.2); Monocytes Percent Auto 10.9 % (2-11); Neutrophils Absolute Auto 4.2 x10*3/uL (2.0-8.3); Neutrophils Percent Auto 59.7 % (45-73); Platelet Count 159 X10*3/uL (160-400); Red Cell Distribution Width 14.1 % (11.0-16.0); White Blood Count 7.1 X10*3/uL (4.8-10.8)
[2023-01-31 11:41] LABS: Anion Gap 12 (12-20); Blood Urea Nitrogen 35 mg/dL (9-16); Calcium 9.4 mg/dL (8.4-10.2); Carbon Dioxide 25 mmol/L (22-29); Chloride 108 mmol/L (96-108); Estimated Glomerular Filt Rate 25; Potassium 4.5 mmol/L (3.3-5.1); Sodium 140 mmol/L (135-145)
== END 2023-01-31 09:56 | disposition home or self-care (01) ==
LOC: HO.HHCL 09:55
PROVIDERS: Visit Provider Internal Medicine Hypertension Specialist
DX: N18.4 Chronic kidney disease, stage 4 (severe) (principal)
CPT/HCPCS: 36415; 80051; 82310; 82565; 84520; 85025

== ENCOUNTER 2023-04-14 10:19 | Outpatient (AMB) | payer OTHER, SELFPAY ==
--- NOTE | 2023-04-14 10:21 | MHC.OFFVIS ---
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 Pt states he has cramping when he is at rest. Pt states that the Left LE is worse, states it's been happening for a long time. Strategic Intelligence Officer Required: Yes Strategic Intelligence Officer Language: Senior Energy Analyst Name: Meeta [id number] Information Interpreted: clinical only Allergies empagliflozin [From Jardiance] Adverse Reaction (Intermediate, Verified 04/14/23 10:28) reccurent UTI, hypoglycemia HPI LOAN ADVISER/ PCP ref for PAD w/ decreased pulses HPI Details Very pleasant 77-year-old gentleman presents for evaluation of lower extremities. He had been seen by his primary care doctor where they noted some swelling and discoloration of the lower extremities. Due to his history of diabetes there was concern of JACOB Jeong. He now presents to us for vascular evaluation. [facility] Medical History Ureteral stent present Chronic renal failure, stage 4 (severe) PAF (paroxysmal atrial fibrillation) Glucosuria A-fib Hypertension High cholesterol Diabetes 1.5, managed as type 2 Surgical History No pertinent past surgical history Family History Other No family history of coronary artery disease Social History Household Members: Family Housing: House Do you presently have visiting nurse or other home services: Yes Alcohol intake: never Comment: May change due to airborne precautions Patient Tobacco Use Status: Never used Tobacco e-Cigarette/Vaping Use: Never Used Advance Directives Date on File: 04/29/21 service: No Current occupational status: retired Review of Systems Const All systems reviewed & are unremarkable except as noted in HPI and below Reports no additional complaints ENT Reports Normal hearing present Card Denies chest pain, Denies chest pain at rest, Denies chest pain with activity and Denies pedal edema Resp Denies cough GI Denies abdominal pain Musc Denies abnormal gait, Denies muscle cramps and Denies radiating pain into limb Skin/Breast Denies skin ulcer and Denies wounds Neuro Reports Normal hearing present and Denies abnormal gait Psych Reports no additional complaints Physical Exam Vital Signs: BMI result Body Mass Index 32.3 Const General: cooperative, healthy appearing and comfortable Orientation/consciousness: oriented to person, oriented to place and oriented to time HEENT Head: Yes normal to inspection Neck Neck: Yes normal visual inspection Carotids: no bruits Chest Chest palpation & inspection: normal inspection of the chest Resp Effort & Inspection: normal respiratory effort and able to speak in complete sentences Auscultation: clear to auscultation bilaterally, no crackles, no rales, no rhonchi and no wheezes Cardio Other: Bilateral palpable dorsalis pedis pulses Rate: regular rate Rhythm: regular rhythm Heart sounds: S1 normal heart sound present and S2 normal heart sound present Bruits: no carotid bruits Peripheral pulses: Peripheral pulses 2+ throughout GI Inspection: Yes normal to inspection Skin Wounds: no wounds Hair: normal Neuro General: oriented to person, oriented to place and oriented to time Cranial nerves: Yes CN's II-XII intact bilaterally and Yes Normal hearing present Cognition (Neuro): normal cognition Motor exam (neuro): 5/5 motor strength present throughout Extrem Other: venous exam: +2 edema with skin color changes General: No clubbing, No cyanosis and No edema Psych Appearance: grossly normal Mental Status: mental status grossly normal Speech and movement: Normal speech and movement present Assessment & Plan Assessment & Plan (1) Varicose veins of right lower extremity with inflammation: Code(s): I83.11 - Varicose veins of right lower extremity with inflammation Plan: I do believe there is an element of venous insufficiency. I have taken the liberty of ordering noninvasive venous insufficiency testing. In terms of arterial disease I was able to appreciate palpable pulses. I do not think that that is an issue for him. I did discuss these findings with him and he will undergo testing and follow-up with us. Thank you for allowing us to assist in his care. If there are any questions or concerns please do not hesitate to contact us Orders: Orders US venous insuf bilat 1 Week I83.11 - Varicose veins of right lower extremity with inflammation Coding Level of Care Code New Pt Level 4 (00131) Diagnoses Varicose veins of right lower extremity with inflammation I83.11
[2023-04-14 10:23] VITALS: BMI 32.3
== END 2023-04-14 10:43 | disposition home or self-care (01) ==
PROVIDERS: PCP Internal Medicine; Visit Provider Surgery Vascular Surgery
DX: I83.11 Varicose veins of right lower extremity with inflammation (principal)
CPT/HCPCS: 99203

== ENCOUNTER → 2023-04-14 10:19 | Outpatient (BNVA) | payer OTHER, SELFPAY | PROVIDERS: PCP Internal Medicine; Visit Provider Surgery Vascular Surgery | DX: I83.11 Varicose veins of right lower extremity with inflammation (principal) | CPT/HCPCS: 99202 ==

== ENCOUNTER 2023-05-25 09:58 | Outpatient (REF) | payer OTHER, SELFPAY ==
--- NOTE | ~2023-05-25 | US_ITS ---
EXAMINATION: US RETROPERITONEAL COMPLETE (RENAL) CLINICAL INFORMATION: Unspecified hydronephrosis. COMPARISON: CT abdomen and pelvis 10/06/2022. X-ray abdomen KUB 08/26/2022. Renal ultrasound 03/16/2022 and 09/23/2021. TECHNIQUE: Real-time imaging of the kidneys and bladder. FINDINGS: RIGHT KIDNEY: 9.0 x 6.2 x 5.2 cm (SAG x AP x TRV). The kidney demonstrates diffuse cortical thinning and overall increased echogenicity.No renal calculi or hydronephrosis. 1.7 cm exophytic cyst off the upper pole the right kidney. LEFT KIDNEY: 10.5 x 5.7 x 6.7 cm (SAG x AP x TRV). The kidney demonstrates diffuse cortical thinning and overall increased echogenicity. There is mild hydronephrosis of the left kidney and visualized portion of the proximal left ureter appear mildly dilated. No left-sided renal calculi appreciated. BLADDER: Well distended and normal. Bilateral ureteral jets are demonstrated. Prevoid bladder volume is 151 mL. Postvoid bladder volume is 8.3 mL. Enlarged prostate containing coarse calcifications, volume 46.3 mL. US/US retroperitoneal comp IMPRESSION: 1. Mild hydronephrosis of the left kidney and visualized portion of the proximal left ureter appear mildly dilated. No renal calculi appreciated. Bilateral ureteral jets were visualized. This can be further evaluated with CT urogram if clinically indicated. 2. Both kidneys demonstrate diffuse cortical thinning and overall increased echogenicity suggesting medical renal disease. Clinical correlation recommended. 3. Enlarged prostate gland.
== END 2023-05-25 09:59 | disposition home or self-care (01) ==
LOC: HO.HMGCX 09:58
PROVIDERS: PCP Internal Medicine; Visit Provider Nurse Practitioner Family
DX: N13.30 Unspecified hydronephrosis (principal); N32.89 Other specified disorders of bladder
CPT/HCPCS: 76770

== ENCOUNTER 2023-06-03 09:13 | Outpatient (REF) | payer OTHER, SELFPAY ==
[2023-06-03 11:59] LABS: Anion Gap 11 (12-20); Blood Urea Nitrogen 50 mg/dL (9-16); Calcium 8.8 mg/dL (8.4-10.2); Carbon Dioxide 26 mmol/L (22-29); Chloride 106 mmol/L (96-108); Estimated Glomerular Filt Rate 23; Glucose Random 311 mg/dL (60-115); Potassium 4.4 mmol/L (3.3-5.1); Sodium 139 mmol/L (135-145)
== END 2023-06-03 09:14 | disposition home or self-care (01) ==
LOC: HO.HHCL 09:13
PROVIDERS: Visit Provider Internal Medicine
DX: E11.65 Type 2 diabetes mellitus with hyperglycemia (principal); Z79.4 Long term (current) use of insulin
CPT/HCPCS: 36415; 80048

== ENCOUNTER 2023-06-08 09:18 | Outpatient (AMB) | payer OTHER, SELFPAY ==
--- NOTE | 2023-06-08 09:20 | A.OFFVIS_ITS ---
Intake Intake Visit Reasons: 6mo follow up Intake Note: Patient is present for follow up dysuria and hydronephrosis Urology Medications: none Blood Thinner: clopidogrel and apixaban PVR:30ml's Silverware Buffing Machine Operator Required: Yes Silverware Buffing Machine Operator Name: MICHAEL PATRICK-CMI Accompanied by: Daughter Allergies empagliflozin [From Jardiance] Adverse Reaction (Intermediate, Verified 06/08/23 09:50) reccurent UTI, hypoglycemia Medication List - Last Reconciled 06/08/23 by YASMIN Bourne acetaminophen ER (Tylenol 8 Hour) 650 mg PO Q8H PRN apixaban (Eliquis) 5 mg PO BID atorvastatin 1 tab PO BEDTIME clopidogrel 75 mg PO BEDTIME cyclobenzaprine 5 mg PO BID PRN dulaglutide (Trulicity) 0.75 mg subcut QWEEK insulin glargine (Lantus Solostar U-100 Insulin) units subcut isosorbide mononitrate ER 60 mg PO DAILY metoprolol succinate ER 50 mg PO DAILY pantoprazole 40 mg PO DAILY@0630 pen needle, diabetic (UltiCare Pen Needle) As directed pioglitazone 1 tab PO DAILY HPI HPI Comments History of Present Illness Details Matthew is a very pleasant Bangladeshi-speaking 78-year-old male patient of Dr. Delgado who was accompanied by his daughter at today's visit. He has a past medical history of diabetes, AFib, chronic renal failure stage 4, hypercholesteremia, and hypertension. He presents to the office today for follow-up of his hydronephrosis, bladder wall thickening, and bladder outlet obstruction. Of note, patient underwent cystoscopy left-sided stent removal under sedation October [address] Winchester as indwelling stent had been in place for an increase amount/period of time. He presents to the office today for follow-up. Recent retroperitoneal ultrasound results reviewed with the patient today. Bilateral kidneys with no calculi. Right kidney with no hydronephrosis. 1.7 cm exophytic cyst noted to the upper pole the right kidney. Left kidney with mild hydronephrosis. The bladder is well distended and normal. Bilateral ureteral jets are demonstrated. Pre void bladder volume is approximately 150 mL. Postvoid bladder volume is approximately 10 mL. Prostate is enlarged at approximately 46 mL. He currently denies any bothersome urinary issues or concerns. In office urinalysis with 3+ leukocytes negative nitrates. PVR 30 mLs. When asked he does report intermittent episodes of foul-smelling urine he otherwise denies urinary urgency, urinary frequency, incontinence, nocturia, hematuria, dysuria, changes to urinary stream, flank pain, fever, and or chills. He is happy with his current voiding parameters. Discussed at length further intervention regarding mild left-sided hydronephrosis noted with CT urogram for further assessment evaluation versus surveillance monitoring. Discussed at length potential causes and affects of enlarged prostate noted on retroperitoneal ultrasound. He otherwise offers no other issues or concerns at this time. [facility] Medical History Ureteral stent present Chronic renal failure, stage 4 (severe) PAF (paroxysmal atrial fibrillation) Glucosuria A-fib Hypertension High cholesterol Diabetes 1.5, managed as type 2 Surgical History No pertinent past surgical history Family History Other No family history of coronary artery disease Social History Household Members: Family Housing: House Do you presently have visiting nurse or other home services: Yes Alcohol intake: never Comment: May change due to airborne precautions Patient Tobacco Use Status: Never used Tobacco e-Cigarette/Vaping Use: Never Used Advance Directives Date on File: 04/29/21 service: No Current occupational status: retired Review of Systems Const Reports as per HPI Eyes Reports no additional complaints ENT Reports no additional complaints Card Reports as per HPI Resp Reports no additional complaints GI Reports as per HPI Reports as per HPI Musc Reports no additional complaints Neuro Reports as per HPI Psych Reports no additional complaints Endo Reports as per HPI Physical Exam Const General: cooperative, healthy appearing, comfortable, no acute distress, well developed, alert and awake Orientation/consciousness: patient oriented x3 Limitations: no limitations HEENT Head: Yes normal to inspection, Yes normocephalic and Yes atraumatic Ears: hearing grossly normal bilaterally Eyes General: appearance normal, both eyes and all related structures Neck Neck: Yes normal visual inspection and Yes trachea midline Chest Chest palpation & inspection: normal inspection of the chest Resp Effort & Inspection: normal respiratory effort and able to speak in complete sentences Cardio Rate: regular rate GI Inspection: Yes normal to inspection General: Yes no CVA tenderness Back/Spine/Pelvis Back: no CVA tenderness Skin General skin exam: no rashes or lesions noted Neuro General: patient oriented x3 Extrem General: Yes normal to inspection Psych Appearance: grossly normal and well kempt Mental Status: mental status grossly normal Speech and movement: Normal speech and movement present and Clear speech present Affect: normal affect Attitude: cooperative Thought process: Normal thought process present Thought content: Normal thought content present Insight: Fair insight present (Psych) Judgement: Fair judgement present (Psych) Office Procedures Post Void Residual Post Residual Void Post Void Residual (PVR): 30 [id number] Void Residual by ultrasound Results AMB Urinalysis, Automated UA Leukoctes 500 Ana/uL Last Edit by Ishan Ortegaareli on 06/08/23 09:35 UA Nitrite Negative Last Edit by Ishan Ortegaareli on 06/08/23 09:35 UA Urobilinogen 0.2 mg/dL Last Edit by Ishan Camarena on 06/08/23 09:35 UA Protein 30 mg/dL Last Edit by Ishan Camarena on 06/08/23 09:35 UA pH 6.0 Last Edit by [employer] ShannonMetago on 06/08/23 09:35 UA Blood 200 David/uL Last Edit by Ishan Ortegaareli on 06/08/23 09:35 UA Specific [place] 1.015 Last Edit by FreddyVioozerrosy Ortegaareli on 06/08/23 09:35 UA Ketone Negative Last Edit by [employer] Shannonareli on 06/08/23 09:35 UA Bilirubin 0 mg/dL Last Edit by FreddyVioozerrosy Ortegaareli on 06/08/23 09:35 UA Glucose 250 mg/dL Last Edit by [employer] on 06/08/23 09:35 Results Reviewed Results Reviewed: Laboratory Last Values Urine pH (Auto) 6.0 06/08/23 09:28 Specific [place] (Auto) 1.015 06/08/23 09:28 Urine Protein (Auto) 30 mg/dL 06/08/23 09:28 Glucose (UA)(Auto) 250 mg/dL 06/08/23 09:28 Urine Ketones (Auto) Negative 06/08/23 09:28 Urine Blood (Auto) 200 David/uL 06/08/23 09:28 Urine Nitrite (Auto) Negative 06/08/23 09:28 Urine Bilirubin (Auto) 0 mg/dL 06/08/23 09:28 Urine Urobilinogen (Auto) 0.2 mg/dL 06/08/23 09:28 Leukocyte Esterase (Auto) 500 Ana/uL 06/08/23 09:28 Date of Service: 05/25/23 EXAMINATION: US RETROPERITONEAL COMPLETE (RENAL) FINDINGS: RIGHT KIDNEY: 9.0 x 6.2 x 5.2 cm (SAG x AP x TRV). The kidney demonstrates diffuse cortical thinning and overall increased echogenicity.No renal calculi or hydronephrosis. 1.7 cm exophytic cyst off the upper pole the right kidney. LEFT KIDNEY: 10.5 x 5.7 x 6.7 cm (SAG x AP x TRV). The kidney demonstrates diffuse cortical thinning and overall increased echogenicity. There is mild hydronephrosis of the left kidney and visualized portion of the proximal left ureter appear mildly dilated. No left-sided renal calculi appreciated. BLADDER: Well distended and normal. Bilateral ureteral jets are demonstrated. Prevoid bladder volume is 151 mL. Postvoid bladder volume is 8.3 mL. Enlarged prostate containing coarse calcifications, volume 46.3 mL. IMPRESSION: 1. Mild hydronephrosis of the left kidney and visualized portion of the proximal left ureter appear mildly dilated. No renal calculi appreciated. Bilateral ureteral jets were visualized. This can be further evaluated with CT urogram if clinically indicated. 2. Both kidneys demonstrate diffuse cortical thinning and overall increased echogenicity suggesting medical renal disease. Clinical correlation recommended. 3. Enlarged prostate gland. Assessment & Plan Assessment & Plan (1) Enlarged prostate: Code(s): N40.0 - Benign prostatic hyperplasia without lower urinary tract symptoms (2) Foul smelling urine: Code(s): R82.90 - Unspecified abnormal findings in urine (3) Nephrolithiasis: Code(s): N20.0 - Calculus of kidney (4) Hydronephrosis: Code(s): N13.30 - Unspecified hydronephrosis Plan In office urinalysis results reviewed with the patient today; as noted above; will send for urine culture. PVR 30 mLs. Discussed at length potential causes and affects of enlarged prostate as well as left-sided hydronephrosis noted on retroperitoneal ultrasound. Recent retroperitoneal ultrasound results reviewed with the patient today; as n oted above. Discussed further treatment options regarding left-sided hydronephrosis as well as enlarged prostate; risks and benefits of these interventions were discussed at length. Will obtain BUN and creatinine as well as PSA for further assessment evaluation. Will repeat renal ultrasound in 3 months. Patient currently denies any bothersome urinary issues or concerns. He reports be happy with current voiding parameters. Follow-up in 3 months with imaging and labs to be completed prior; or sooner with any issues, concerns, and or questions. Orders: Orders AMB Urinalysis Automated Today Z13.9 - Encounter for screening, unspecified AMB Post Void Residual by ultrasound Today N32.0 - Bladder-neck obstruction US renal BI 3 Months N13.30 - Unspecified hydronephrosis, N20.0 - Calculus of kidney Prostate Specific Antigen Today N40.0 - Benign prostatic hyperplasia without lower urinary tract symptoms Creatinine Today N13.30 - Unspecified hydronephrosis Blood Urea Nitrogen Today N13.30 - Unspecified hydronephrosis Urine Culture Today R82.90 - Unspecified abnormal findings in urine Patient Instructions: The patient had an opportunity to ask questions regarding the treatment plan. All questions were answered. Physical exam, labs, and imaging were discussed and reviewed in detail. As well as risks, benefits, and discussion of treatment choices. No major barriers to understanding were identified. The patient expressed understanding and agreement with the above treatment plan. The patient was made aware they should contact our office by phone for worsening of their current condition, the appearance of new symptoms, or with any questions or concerns. Compliance is encouraged with any medications and follow up testing that is ordered. It is a privilege to be allowed the opportunity to participate in? your urological care.? Again, if you have any questions or concerns If you have any questions or concerns please do not hesitate to contact me. The office is [phone]. This note is constructed using voice recognition software. While every effort has been made to ensure accuracy arboriculture instructor errors may have been included. Yours sincerely, YASMIN Bourne Coding Level of Care Code Est Pt Level 4 (00219) Diagnoses Enlarged prostate N40.0 Foul smelling urine R82.90 Nephrolithiasis N20.0 Hydronephrosis N13.30 CPT Codes Post Residual Void - PVR CPT Code: 43747-[id number] Void Residual by ultrasound ([id number]) Time Spent (min) 25
== END 2023-06-08 11:19 | disposition home or self-care (01) ==
PROVIDERS: PCP Internal Medicine; Visit Provider Nurse Practitioner Family
DX: N40.0 Benign prostatic hyperplasia without lower urinary tract symptoms (principal); R82.90 Unspecified abnormal findings in urine; N20.0 Calculus of kidney; N13.30 Unspecified hydronephrosis; Z13.9 Encounter for screening, unspecified
CPT/HCPCS: 99214

== ENCOUNTER 2023-06-08 09:18 | Outpatient (REF) | payer OTHER, SELFPAY | END 2023-06-08 09:19 | disposition home or self-care (01) | LOC: HO.LNP 09:18 | PROVIDERS: PCP Internal Medicine; Visit Provider Nurse Practitioner Family | DX: R82.90 Unspecified abnormal findings in urine (principal); N40.0 Benign prostatic hyperplasia without lower urinary tract symptoms; N20.0 Calculus of kidney; N13.30 Unspecified hydronephrosis | CPT/HCPCS: 51798; 81003; 87086; 87147; 99212 ==

== ENCOUNTER 2023-07-11 10:35 | Outpatient (AMB) | payer OTHER, SELFPAY ==
[2023-07-11 10:38] VITALS: BP 144/72; PULSE 78; O2SAT 98; BMI 26.1
--- NOTE | 2023-07-11 10:38 | HO.NEPHOV ---
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 Baseline serum creatinine is around 2.5 mg/dL. Recently he was found to have mild left-sided hydronephrosis and awaiting procedure. He is history of non ST elevation AR in April 2021. History of C diff which was treated with vancomycin in the past. Accompanied by his daughter. At present he has no specific complaints like dysuria urgency increased frequency or hematuria. No fever no weight loss. [facility] Medical History Ureteral stent present Chronic renal failure, stage 4 (severe) PAF (paroxysmal atrial fibrillation) Glucosuria A-fib Hypertension High cholesterol Diabetes 1.5, managed as type 2 Surgical History No pertinent past surgical history Family History Other No family history of coronary artery disease Social History Household Members: Family Housing: House Do you presently have visiting nurse or other home services: Yes Alcohol intake: never Comment: May change due to airborne precautions Patient Tobacco Use Status: Never used Tobacco e-Cigarette/Vaping Use: Never Used Advance Directives Date on File: 04/29/21 service: No Current occupational status: retired Physical Exam Vital Signs: Last Vital Signs Pulse 78 07/11/23 10:38 BP 144/72 H 07/11/23 10:38 Pulse Ox 98 07/11/23 10:38 Oxygen Delivery Method Room Air 07/11/23 10:38 BMI result Body Mass Index 26.1 Const General: comfortable Nutritional Appearance: well nourished Orientation/consciousness: patient oriented x3 HEENT Head: No normal to inspection Mouth: moist mucous membranes Neck Neck: Yes supple and Yes no JVD Resp Auscultation: clear to auscultation bilaterally, no rales and rub present Cardio Jugular venous distension: no JVD Palpation: no palpable S3 and no palpable S4 Heart sounds: no rubs GI Palpation (GI): Soft to palpation and nontender Percussion: No Fluid wave present General: Yes no CVA tenderness Back/Spine/Pelvis Back: no CVA tenderness Skin General skin exam: no rashes or lesions noted Neuro General: patient oriented x3 Extrem General: Yes no pedal edema and No clubbing Results Reviewed Results Reviewed: May 2023 US/US retroperitoneal comp IMPRESSION: 1. Mild hydronephrosis of the left kidney and visualized portion of the proximal left ureter appear mildly dilated. No renal calculi appreciated. Bilateral ureteral jets were visualized. This can be further evaluated with CT urogram if clinically indicated. 2. Both kidneys demonstrate diffuse cortical thinning and overall increased echogenicity suggesting medical renal disease. Clinical correlation recommended. 3. Enlarged prostate gland. Nephrology Results: Hgb 12.3 g/dl (14.0-18.0) L 01/31/23 WBC 7.1 X10*3/uL (4.8-10.8) 01/31/23 Plt Count 159 X10*3/uL (160-400) L 01/31/23 Sodium 139 mmol/L (135-145) 06/03/23 Potassium 4.4 mmol/L (3.3-5.1) 06/03/23 Chloride 106 mmol/L (96-108) 06/03/23 Carbon Dioxide 26 mmol/L (22-29) 06/03/23 BUN 50 mg/dL (9-16) H 06/03/23 Creatinine 2.75 mg/dL (0.5-1.4) H 06/03/23 Calcium 8.8 mg/dL (8.4-10.2) 06/03/23 Assessment & Plan Assessment & Plan (1) Nephrolithiasis: Code(s): N20.0 - Calculus of kidney Category: Medical Plan . 78-year-old man with stage 4 chronic kidney disease in the setting of longstanding diabetes mellitus coronary disease and nephrolithiasis. Recent creatinine is 2.7 mg/dL. This is slightly elevated from the baseline. I suspect the ongoing obstruction could be playing a role. He has left-sided hydronephrosis and awaiting urological intervention. He has no signs or symptoms of uremia. Fluid status is acceptable. As per nephrolithiasis should stay on low-sodium diet and increase fluid intake to maintain urine output of 2 L. Avoid nephrotoxic agents including NSAIDs. Maintain blood pressure less than 130/80 mm Hg. Discussed importance of tight control blood sugar to slow the portion of renal disease. All his questions were answered Orders: Orders Parathyroid Hormone Intact Today N18.9 - Chronic kidney disease, unspecified, N20.0 - Calculus of kidney Total Protein Urine Random Today N18.9 - Chronic kidney disease, unspecified, N20.0 - Calculus of kidney Complete Blood Count Auto Diff Today N18.30 - Chronic kidney disease, stage 3 unspecified, N18.9 - Chronic kidney disease, unspecified, N20.0 - Calculus of kidney Comprehensive Met. Panel Today N18.9 - Chronic kidney disease, unspecified, N20.0 - Calculus of kidney Creatinine Urine Today N05.9 - Unspecified nephritic syndrome with unspecified morphologic changes, N18.9 - Chronic kidney disease, unspecified, N20.0 - Calculus of kidney Coding Level of Care Code Est Pt Level 4 (04446) Diagnoses Nephrolithiasis N20.0
== END 2023-07-11 10:56 | disposition home or self-care (01) ==
PROVIDERS: PCP Internal Medicine; Visit Provider Internal Medicine Hypertension Specialist
DX: N20.0 Calculus of kidney (principal)
CPT/HCPCS: 99214

== ENCOUNTER → 2023-07-11 10:35 | Outpatient (BNVA) | payer OTHER, SELFPAY | PROVIDERS: PCP Internal Medicine; Visit Provider Internal Medicine Hypertension Specialist | DX: N20.0 Calculus of kidney (principal) | CPT/HCPCS: 99212 ==

== ENCOUNTER 2023-09-05 14:46 | Outpatient (REF) | payer OTHER, SELFPAY ==
--- NOTE | ~2023-09-05 | US_ITS ---
EXAMINATION: US RETROPERITONEAL LIMITED (RENAL ONLY) CLINICAL INFORMATION: Calculus of kidney. COMPARISON: Ultrasound kidneys and bladder 05/25/2023. CT abdomen and pelvis without contrast 10/06/2022. Abdomen KUB 08/26/2022. Renal ultrasound 03/16/2022. X-ray abdomen KUB 11/05/2021. TECHNIQUE: Real-time imaging of the kidneys. FINDINGS: RIGHT KIDNEY: 10.2 x 6.5 x 6.1 cm (SAG x AP x TRV). The kidney is normal in size, contour, and echogenicity. Renal cortical thickness is normal. No renal calculi or hydronephrosis. 2.7 x 2.0 x 1.9 cm exophytic cyst is seen in the upper pole, no imaging follow-up recommended. LEFT KIDNEY: 10.4 x 5.7 x 4.2 cm (SAG x AP x TRV). The kidney is normal in size and contour. There is thinning of the renal cortex. There is increased echogenicity of the renal cortex. No renal calculi or focal parenchymal lesions. There is fullness of the renal pelvis with mild dilatation of the proximal ureter. US/US renal BI IMPRESSION: 1. Normal appearance of the right kidney. 2. Thinning of the left renal cortex with increased echogenicity of the left renal cortex. 3. Fullness of the left renal pelvis with mild dilatation of the proximal ureter.
== END 2023-09-05 14:47 | disposition home or self-care (01) ==
LOC: HO.HMGCX 14:46
PROVIDERS: PCP Internal Medicine; Visit Provider Nurse Practitioner Family
DX: N20.0 Calculus of kidney (principal); N13.30 Unspecified hydronephrosis
CPT/HCPCS: 76775

== ENCOUNTER 2023-09-07 07:37 | Outpatient (REF) | payer OTHER, SELFPAY ==
[2023-09-07 07:58] LABS: MANUAL DIFF FLAG NO
[2023-09-07 08:30] LABS: Basophils Percent Auto 0.6 % (0-2); Eosinophils Absolute Auto 0.6 X10*3/uL (0.0-0.4); Eosinophils Percent Auto 7.7 % (0-4); Hematocrit 37.7 % (42.0-52.0); Hemoglobin 12.3 g/dl (14.0-18.0); Imm Gran Abs Auto 0.04 X10*3/uL (0.00-0.03); Imm Gran Pct Auto 0.6 % (0.0-0.4); Lymphocytes Absolute Auto 1.4 X10*3/uL (1.2-4.9); Lymphocytes Percent Auto 18.9 % (20-40); Mean Corpuscular HGB Conc 32.6 g/dl (31.0-36.0); Mean Corpuscular Hemoglobin 31.8 pg (27.0-33.0); Mean Corpuscular Volume 97.4 fL (80.0-98.0); Monocytes Absolute Auto 0.9 X10*3/uL (0.1-1.2); Neutrophils Absolute Auto 4.3 x10*3/uL (2.0-8.3); Neutrophils Percent Auto 60.2 % (45-73); Platelet Count 188 X10*3/uL (160-400); Red Blood Count 3.87 X10*6/uL (4.60-5.80); Red Cell Distribution Width 13.6 % (11.0-16.0); White Blood Count 7.2 X10*3/uL (4.8-10.8)
[2023-09-07 09:06] LABS: Parathyroid Hormone Intact 105.4 pg/mL (8.7-77.1)
[2023-09-07 09:07] LABS: Alanine Aminotransferase 18 U/L (0-40); Albumin Level 3.9 g/dL (3.5-5.0); Alkaline Phosphatase 112 U/L (39-117); Anion Gap 12 (12-20); Aspartate Amino Transferase 22 U/L (5-37); Bilirubin Total 0.3 mg/dL (0.0-1.0); Blood Urea Nitrogen 35 mg/dL (9-16); Calcium 9.7 mg/dL (8.4-10.2); Carbon Dioxide 27 mmol/L (22-29); Chloride 108 mmol/L (96-108); Estimated Glomerular Filt Rate 25; Glucose Random 126 mg/dL (60-115); Sodium 142 mmol/L (135-145); Total Protein 7.7 g/dL (6.5-8.0)
[2023-09-07 09:15] LABS: Creatinine Urine 74.24 mg/dL; Total Protein Urine Random 43 mg/dL (<12)
[2023-09-07 09:16] LABS: Blood Urea Nitrogen 35 mg/dL (9-16)
[2023-09-07 11:13] LABS: Prostate Specific Antigen 0.64 ng/mL (<0.05-4.0)
== END 2023-09-07 07:38 | disposition home or self-care (01) ==
LOC: HO.LAB 07:37
PROVIDERS: Absent Provider Nurse Practitioner Family; PCP Internal Medicine; Visit Provider Internal Medicine Hypertension Specialist
DX: Z12.5 Encounter for screening for malignant neoplasm of prostate (principal); N20.0 Calculus of kidney; N18.30 Chronic kidney disease, stage 3 unspecified; N05.9 Unspecified nephritic syndrome with unspecified morphologic changes; N40.0 Benign prostatic hyperplasia without lower urinary tract symptoms; N32.89 Other specified disorders of bladder; N13.30 Unspecified hydronephrosis
CPT/HCPCS: 36415; 80053; 81003; 82570; 83970; 84153; 84156; 84520; 85025; 99212

== ENCOUNTER 2023-09-07 09:20 | Outpatient (AMB) | payer OTHER, SELFPAY ==
--- NOTE | 2023-09-07 09:23 | MHC.OFFVIS ---
Intake Visit Reasons: 3 month follow up/ PSA/ US Intake Note: Patient is present for 3m/PSA/US Urology Medication:none Antibiotic Allergy:none Blood Thinner:none Last PVR: 3ml's Today's PVR: 0ml's Reconcilement Clerk Required: No Allergies [email or web address] [From Jardiance] Adverse Reaction (Intermediate, Verified 09/07/23 10:16) reccurent UTI, hypoglycemia Medication List - Last Reconciled 09/07/23 by YASMIN Bourne acetaminophen ER (Tylenol 8 Hour) 650 mg PO Q8H PRN apixaban (Eliquis) 5 mg PO BID atorvastatin 1 tab PO BEDTIME clopidogrel 75 mg PO BEDTIME cyclobenzaprine 5 mg PO BID PRN dulaglutide (Trulicity) 0.75 mg subcut QWEEK insulin glargine (Lantus Solostar U-100 Insulin) units subcut isosorbide mononitrate ER 60 mg PO DAILY metoprolol succinate ER 50 mg PO DAILY pen needle, diabetic (UltiCare Pen Needle) As directed pioglitazone 1 tab PO DAILY HPI Comments Details: Matthew is a very pleasant Macedonian-speaking 78-year-old male patient of Dr. Delgado who was accompanied by his daughter at today's visit. He has a past medical history of diabetes, AFib, chronic renal failure stage 4, hypercholesteremia, and hypertension. He presents to the office today for follow-up of his hydronephrosis, bladder wall thickening, and bladder outlet obstruction. Of note, patient underwent cystoscopy left-sided stent removal under sedation October [address] Winchester as indwelling stent had been in place for an increase amount/period of time. He presents to the office today for follow-up. Recent retroperitoneal ultrasound results reviewed with the patient and daughter today. Bilateral kidneys with no calculi or hydronephrosis. Right kidney with 2.7 cm exophytic cyst in the upper pole which requires no imaging follow-up per radiology report. Left kidney there is increased echogenicity of the renal cortex. No renal calculi or focal parenchymal lesions. There is fullness of the renal pelvis with mild dilatation of the proximal ureter. PSA was also ordered prior to today's appointment however these did not get completed and time as the patient went this morning. Labs remain pending. Discussed further workup of mild left-sided hydronephrosis. Discussed importance of following up as recommended. He currently denies any bothersome urinary issues or concerns. In office urinalysis results reviewed with the patient today. PVR 0ml's. When asked he denies urinary urgency, urinary frequency, incontinence, nocturia, hematuria, dysuria, changes to urinary stream, flank pain, fever, and or chills. He is happy with his current voiding parameters. He otherwise offers no other issues or concerns at this time. BUN: 04/28 53, 04/28 25, 10/26 37, 11/26 41, 08/27 48, 10/27 46 10/27 30, 01/27 41, 05/28 50, 09/27 35 Creatinine: 04/28 1.89, 10/26 2.32, 11/26 2.11, 11/26 2.31, 08/27 2.76, 10/27 2.90, 10/27 2.76, 10/27 3.21, 10/27 2.11, 01/27 2.26, 05/28 2.75, 09/27 2.50 [facility] Medical History Ureteral stent present Chronic renal failure, stage 4 (severe) PAF (paroxysmal atrial fibrillation) Glucosuria A-fib Hypertension High cholesterol Diabetes 1.5, managed as type 2 Surgical History No pertinent past surgical history Family History Other No family history of coronary artery disease Social History Household Members: Family Housing: House Do you presently have visiting nurse or other home services: Yes Alcohol intake: never Comment: May change due to airborne precautions Patient Tobacco Use Status: Never used Tobacco e-Cigarette/Vaping Use: Never Used Advance Directives Date on File: 04/29/21 service: No Current occupational status: retired Review of Systems Const Reports as per HPI Eyes Reports no additional complaints ENT Reports no additional complaints Card Reports as per HPI Resp Reports no additional complaints GI Reports as per HPI Reports as per HPI Musc Reports no additional complaints Neuro Reports as per HPI Psych Reports no additional complaints Endo Reports as per HPI Bennie/Lymph Reports no additional complaints Aller/Immun Reports no additional complaints Physical Exam Const General: cooperative, healthy appearing, comfortable, no acute distress, well developed, alert and awake Orientation/consciousness: patient oriented x3 Limitations: no limitations HEENT Head: Yes normal to inspection, Yes normocephalic and Yes atraumatic Ears: hearing grossly normal bilaterally Eyes General: appearance normal, both eyes and all related structures Neck Neck: Yes normal visual inspection and Yes trachea midline Chest Chest palpation & inspection: normal inspection of the chest Resp Effort & Inspection: normal respiratory effort and able to speak in complete sentences Cardio Rate: regular rate GI Inspection: Yes normal to inspection General: Yes no CVA tenderness Back/Spine/Pelvis Back: no CVA tenderness Skin General skin exam: no rashes or lesions noted Neuro General: patient oriented x3 Extrem General: Yes normal to inspection Psych Appearance: grossly normal and well kempt Mental Status: mental status grossly normal Speech and movement: Normal speech and movement present and Clear speech present Affect: normal affect Attitude: cooperative Thought process: Normal thought process present Thought content: Normal thought content present Insight: Fair insight present (Psych) Judgement: Fair judgement present (Psych) Results AMB Urinalysis, Automated UA Leukoctes 70 Ana/uL Last Edit by AUGUSTO Horan on 09/07/23 09:38 UA Nitrite Negative Last Edit by AUGUSTO Horan on 09/07/23 09:38 UA Urobilinogen 0.2 mg/dL Last Edit by AUGUSTO Horan on 09/07/23 09:38 UA Protein 30 mg/dL Last Edit by AUGUSTO Horan on 09/07/23 09:38 UA pH 6.0 Last Edit by AUGUSTO Horan on 09/07/23 09:38 UA Blood 80 David/uL Last Edit by AUGUSTO Horan on 09/07/23 09:38 UA Specific [place] 1.015 Last Edit by AUGUSTO Horan on 09/07/23 09:38 UA Ketone Negative Last Edit by AUGUSTO Horan on 09/07/23 09:38 UA Bilirubin 0 mg/dL Last Edit by AUGUSTO Horan on 09/07/23 09:38 UA Glucose 250 mg/dL Last Edit by AUGUSTO Horan on 09/07/23 09:38 Results Reviewed Results Reviewed: Laboratory Last Values Urine pH (Auto) 6.0 09/07/23 09:37 Specific [place] (Auto) 1.015 09/07/23 09:37 Urine Protein (Auto) 30 mg/dL 09/07/23 09:37 Glucose (UA)(Auto) 250 mg/dL 09/07/23 09:37 Urine Ketones (Auto) Negative 09/07/23 09:37 Urine Blood (Auto) 80 David/uL 09/07/23 09:37 Urine Nitrite (Auto) Negative 09/07/23 09:37 Urine Bilirubin (Auto) 0 mg/dL 09/07/23 09:37 Urine Urobilinogen (Auto) 0.2 mg/dL 09/07/23 09:37 Leukocyte Esterase (Auto) 70 Ana/uL 09/07/23 09:37 Date of Service: 09/05/23 EXAMINATION: US RETROPERITONEAL LIMITED (RENAL ONLY) FINDINGS: RIGHT KIDNEY: 10.2 x 6.5 x 6.1 cm (SAG x AP x TRV). The kidney is normal in size, contour, and echogenicity. Renal cortical thickness is normal. No renal calculi or hydronephrosis. 2.7 x 2.0 x 1.9 cm exophytic cyst is seen in the upper pole, no imaging follow-up recommended. LEFT KIDNEY: 10.4 x 5.7 x 4.2 cm (SAG x AP x TRV). The kidney is normal in size and contour. There is thinning of the renal cortex. There is increased echogenicity of the renal cortex. No renal calculi or focal parenchymal lesions. There is fullness of the renal pelvis with mild dilatation of the proximal ureter. IMPRESSION: 1. Normal appearance of the right kidney. 2. Thinning of the left renal cortex with increased echogenicity of the left renal cortex. 3. Fullness of the left renal pelvis with mild dilatation of the proximal ureter. Assessment & Plan Assessment & Plan (1) Nephrolithiasis: Code(s): N20.0 - Calculus of kidney Category: Medical (2) Enlarged prostate: Code(s): N40.0 - Benign prostatic hyperplasia without lower urinary tract symptoms Category: Medical (3) Hydronephrosis: Code(s): N13.30 - Unspecified hydronephrosis Category: Medical (4) Bladder wall thickening: Code(s): N32.89 - Other specified disorders of bladder Category: Medical Plan In office urinalysis results reviewed with the patient today; as noted above. PVR 0 mL. Recent retroperitoneal ultrasound results reviewed with the patient and his daughter today. Patient currently denies any bothersome urinary issues or concerns. Labs remain pending; discussed importance of obtaining labs prior to appointment as ordered. Patient reports to be happy with current voiding parameters. Will obtain CT urogram for further assessment evaluation. BUN and creatinine ordered for imaging. Follow-up in 3 months with labs and imaging to be completed prior; or sooner with any issues, concerns, and or questions. Orders: Orders AMB Urinalysis Automated 09/07/23 Z13.9 - Encounter for screening, unspecified CT urogram 09/07/23 R31.0 - Gross hematuria Blood Urea Nitrogen 09/07/23 R39.15 - Urgency of urination Creatinine 09/07/23 R39.15 - Urgency of urination Patient Instructions: The patient had an opportunity to ask questions regarding the treatment plan. All questions were answered. Physical exam, labs, and imaging were discussed and reviewed in detail. As well as risks, benefits, and discussion of treatment choices. No major barriers to understanding were identified. The patient expressed understanding and agreement with the above treatment plan. The patient was made aware they should contact our office by phone for worsening of their current condition, the appearance of new symptoms, or with any questions or concerns. Compliance is encouraged with any medications and follow up testing that is ordered. It is a privilege to be allowed the opportunity to participate in? your urological care.? Again, if you have any questions or concerns If you have any questions or concerns please do not hesitate to contact me. The office is [phone]. This note is constructed using voice recognition software. While every effort has been made to ensure accuracy regional sales engineer errors may have been included. Yours sincerely, YASMIN Bourne Coding Level of Care Code Est Pt Level 3 (37294) Complex EM visit Add On G2211 Diagnoses Nephrolithiasis N20.0 Enlarged prostate N40.0 Hydronephrosis N13.30 Bladder wall thickening N32.89
== END 2023-09-07 09:57 | disposition home or self-care (01) ==
PROVIDERS: PCP Internal Medicine; Visit Provider Nurse Practitioner Family
DX: N20.0 Calculus of kidney (principal); N40.0 Benign prostatic hyperplasia without lower urinary tract symptoms; N13.30 Unspecified hydronephrosis; N32.89 Other specified disorders of bladder
CPT/HCPCS: 99213; G2211

== ENCOUNTER 2023-11-21 10:41 | Outpatient (AMB) | payer OTHER, SELFPAY ==
[2023-11-21 11:09] VITALS: BP 176/86; PULSE 82; O2SAT 98; BMI 26.6
--- NOTE | 2023-11-21 11:09 | HO.NEPHOV ---
Vital Signs 11/21/23 11:09 11/21/23 11:36 Height 5 ft 6 in Weight 165 lb BMI 26.6 BP 176/86 H 140/70 H Blood Pressure Location Rt brachial Rt brachial Position Sitting Sitting Pulse 82 Pulse Source Pulse Oximeter Pulse Oximetry (%) 98 Oxygen Delivery Method Room Air Intake Visit Reasons: 3 mo fu w/ labs/ Conf Depalletizer Operator Required: Yes Depalletizer Operator Name: [id number] Patino Accompanied by: Daughter Allergies [email or web address] [From Jardiance] Adverse Reaction (Intermediate, Verified 11/21/23 11:13) reccurent UTI, hypoglycemia Medication List - Last Reconciled 11/21/23 by Elías Mosley MD acetaminophen ER (Tylenol 8 Hour) 650 mg PO Q8H PRN apixaban (Eliquis) 5 mg PO BID atorvastatin 1 tab PO BEDTIME clopidogrel 75 mg PO BEDTIME cyclobenzaprine 5 mg PO BID PRN dulaglutide (Trulicity) mg subcut QWEEK insulin glargine (Lantus Solostar U-100 Insulin) units subcut isosorbide mononitrate ER 60 mg PO DAILY metoprolol succinate ER 50 mg PO DAILY pen needle, diabetic (UltiCare Pen Needle) As directed pioglitazone 1 tab PO DAILY HPI Comments Details: 78 year old man with a history of diabetes mellitus and nephrolithiasis here for follow-up. Baseline serum creatinine is around 2.5 mg/dL. Recently he was found to have mild left-sided hydronephrosis and awaiting procedure. He is history of non ST elevation [place] in April 2021. History of C diff which was treated with vancomycin in the past. Accompanied by his daughter. At present he has no specific complaints like dysuria urgency increased frequency or hematuria. No fever no weight loss. [facility] Medical History Ureteral stent present Chronic renal failure, stage 4 (severe) PAF (paroxysmal atrial fibrillation) Glucosuria A-fib Hypertension High cholesterol Diabetes 1.5, managed as type 2 Surgical History No pertinent past surgical history Family History Other No family history of coronary artery disease Social History Household Members: Family Housing: House Do you presently have visiting nurse or other home services: Yes Alcohol intake: never Comment: May change due to airborne precautions Patient Tobacco Use Status: Never used Tobacco e-Cigarette/Vaping Use: Never Used Advance Directives Date on File: 04/29/21 service: No Current occupational status: retired Physical Exam Vital Signs: Last Vital Signs Pulse 82 11/21/23 11:09 BP 140/70 H 11/21/23 11:36 Pulse Ox 98 11/21/23 11:09 Oxygen Delivery Method Room Air 11/21/23 11:09 BMI result Body Mass Index 26.6 Results Reviewed Nephrology Results: Hgb 12.3 g/dl (14.0-18.0) L 09/07/23 WBC 7.2 X10*3/uL (4.8-10.8) 09/07/23 Plt Count 188 X10*3/uL (160-400) 09/07/23 Sodium 139 mmol/L (135-145) 11/21/23 Potassium 4.4 mmol/L (3.3-5.1) 11/21/23 Chloride 103 mmol/L (96-108) 11/21/23 Carbon Dioxide 28 mmol/L (22-29) 11/21/23 BUN 46 mg/dL (9-16) H 11/21/23 Creatinine 2.66 mg/dL (0.5-1.4) H 11/21/23 Calcium 9.7 mg/dL (8.4-10.2) 11/21/23 PTH Intact 105.4 pg/mL (8.7-77.1) H 09/07/23 Urine Creatinine 74.24 mg/dL 09/07/23 Renal US 09/05/23 Assessment & Plan Assessment & Plan (1) Nephrolithiasis: Code(s): N20.0 - Calculus of kidney Category: Medical (2) CKD (chronic kidney disease): Code(s): N18.9 - Chronic kidney disease, unspecified Category: Medical Plan . 78-year-old man with stage 4 chronic kidney disease in the setting of longstanding diabetes mellitus coronary disease and nephrolithiasis. Recent creatinine is 2.7 mg/dL. This is slightly elevated from the baseline. I suspect the ongoing obstruction could be playing a role. He has left-sided hydronephrosis Continue follow up with Urology He has no signs or symptoms of uremia. Fluid status is acceptable. As per nephrolithiasis should stay on low-sodium diet and increase fluid intake to maintain urine output of 2 L. Avoid nephrotoxic agents including NSAIDs. Maintain blood pressure less than 130/80 mm Hg. Discussed importance of tight control blood sugar to slow the portion of renal disease. All his questions were answered Orders: Orders Basic Metabolic Panel 11/21/23 N18.9 - Chronic kidney disease, unspecified, N20.0 - Calculus of kidney Coding Level of Care Code Est Pt Level 4 (07251) Diagnoses Nephrolithiasis N20.0 CKD (chronic kidney disease) N18.9
[2023-11-21 11:36] VITALS: BP 140/70
== END 2023-11-21 11:40 | disposition home or self-care (01) ==
PROVIDERS: PCP Internal Medicine; Visit Provider Internal Medicine Hypertension Specialist
DX: N20.0 Calculus of kidney (principal); N18.9 Chronic kidney disease, unspecified
CPT/HCPCS: 99214

== ENCOUNTER 2023-11-21 12:01 | Outpatient (REF) | payer OTHER, SELFPAY ==
[2023-11-21 13:40] LABS: Anion Gap 12 (12-20); Blood Urea Nitrogen 46 mg/dL (9-16); Calcium 9.7 mg/dL (8.4-10.2); Carbon Dioxide 28 mmol/L (22-29); Chloride 103 mmol/L (96-108); Estimated Glomerular Filt Rate 23; Glucose Random 200 mg/dL (60-115); Potassium 4.4 mmol/L (3.3-5.1); Sodium 139 mmol/L (135-145)
== END 2023-11-21 12:02 | disposition home or self-care (01) ==
LOC: HO.10HDL 12:01
PROVIDERS: Visit Provider Internal Medicine Hypertension Specialist
DX: N20.0 Calculus of kidney (principal); N18.9 Chronic kidney disease, unspecified
CPT/HCPCS: 36415; 80048; 99212

== ENCOUNTER 2024-03-22 09:38 | Outpatient (AMB) | payer OTHER, SELFPAY ==
--- NOTE | 2024-03-22 09:39 | HO.NEPHOV_ITS ---
Vital Signs 03/22/24 09:40 03/22/24 09:47 Height 5 ft 6 in Weight 168 lb BMI 27.1 BP 168/78 H 140/70 H Blood Pressure Location Lt brachial Lt brachial Position Sitting Sitting Pulse 83 Pulse Source Pulse Oximeter Pulse Oximetry (%) 99 Oxygen Delivery Method Room Air Intake Visit Reasons: CKD-LVM Self Propelled Dredge Operator Required: No Self Propelled Dredge Operator Services: Self Propelled Dredge Operator Offered & Declined (Granddaughter will translate) Accompanied by: Grand Child Allergies [email or web address] [From Jardiance] Adverse Reaction (Intermediate, Verified 03/22/24 09:41) reccurent UTI, hypoglycemia Medication List - Last Reconciled 03/22/24 by Elías Mosley MD acetaminophen ER (Tylenol 8 Hour) 650 mg PO Q8H PRN apixaban (Eliquis) 5 mg PO BID atorvastatin 1 tab PO BEDTIME clopidogrel 75 mg PO BEDTIME dulaglutide (Trulicity) mg subcut QWEEK insulin glargine (Lantus Solostar U-100 Insulin) units subcut isosorbide mononitrate ER 60 mg PO DAILY metoprolol succinate ER 50 mg PO DAILY pen needle, diabetic (UltiCare Pen Needle) As directed pioglitazone 1 tab PO DAILY HPI Comments Details: 78 year old man with a history of diabetes mellitus and nephrolithiasis here for follow-up. Baseline serum creatinine is around 2.5 mg/dL. Recently he was found to have mild left-sided hydronephrosis and awaiting procedure. He is history of non ST elevation [place] in April 2021. History of C diff which was treated with vancomycin in the past. Accompanied by his daughter. At present he has no specific complaints like dysuria urgency increased freque ncy or hematuria. No fever no weight loss. [facility] Medical History Ureteral stent present Chronic renal failure, stage 4 (severe) PAF (paroxysmal atrial fibrillation) Glucosuria A-fib Hypertension High cholesterol Diabetes 1.5, managed as type 2 Surgical History No pertinent past surgical history Family History Other No family history of coronary artery disease Social History Household Members: Family Housing: House Do you presently have visiting nurse or other home services: Yes Alcohol intake: never Comment: May change due to airborne precautions Patient Tobacco Use Status: Never used Tobacco e-Cigarette/Vaping Use: Never Used Advance Directives Date on File: 04/29/21 service: No Current occupational status: retired Physical Exam Vital Signs: Last Vital Signs Pulse 83 03/22/24 09:40 BP 168/78 H 03/22/24 09:40 Pulse Ox 99 03/22/24 09:40 Oxygen Delivery Method Room Air 03/22/24 09:40 BMI result Body Mass Index 27.1 Comfortable Neck supple no JVD. Lungs entry equal no rales. Heart S1-S2 heard no gallop or rub. Abdomen soft nontender. Neuro alert awake oriented. No asterixis. Extremities no edema. Results Reviewed Nephrology Results: Hgb 12.3 g/dl (14.0-18.0) L 09/07/23 WBC 7.2 X10*3/uL (4.8-10.8) 09/07/23 Plt Count 188 X10*3/uL (160-400) 09/07/23 Sodium 139 mmol/L (135-145) 11/21/23 Potassium 4.4 mmol/L (3.3-5.1) 11/21/23 Chloride 103 mmol/L (96-108) 11/21/23 Carbon Dioxide 28 mmol/L (22-29) 11/21/23 BUN 45 mg/dL (9-16) H 03/16/24 Creatinine 2.90 mg/dL (0.5-1.4) H 03/16/24 Calcium 9.7 mg/dL (8.4-10.2) 11/21/23 PTH Intact 105.4 pg/mL (8.7-77.1) H 09/07/23 Urine Creatinine 74.24 mg/dL 09/07/23 Renal US 09/05/23 Assessment & Plan Assessment & Plan (1) Nephrolithiasis: Code(s): N20.0 - Calculus of kidney Category: Medical (2) CKD (chronic kidney disease): Code(s): N18.9 - Chronic kidney disease, unspecified Category: Medical Plan . 78-year-old man with stage 4 chronic kidney disease in the setting of longstanding diabetes mellitus coronary disease and nephrolithiasis. Recent creatinine is 2.9 mg/dL. This is slightly elevated from the baseline. I suspect the ongoing obstruction could be playing a role. He has a h/o left- sided hydronephrosis Continue follow up with Urology He has no signs or symptoms of uremia. Fluid status is acceptable. As per nephrolithiasis should stay on low-sodium diet and increase fluid intake to maintain urine output of 2 L. Avoid nephrotoxic agents including NSAIDs. Maintain blood pressure less than 130/80 mm Hg. Discussed importance of tight control blood sugar to slow the portion of renal disease. All his questions were answered Orders: Orders Basic Metabolic Panel 4 Months N18.9 - Chronic kidney disease, unspecified Parathyroid Hormone Intact 4 Months N18.9 - Chronic kidney disease, unspecified Complete Blood Count no Diff 4 Months N18.9 - Chronic kidney disease, unspecified Coding Level of Care Code Est Pt Level 4 (20272) Diagnoses Nephrolithiasis N20.0 CKD (chronic kidney disease) N18.9
[2024-03-22 09:40] VITALS: BP 168/78; PULSE 83; O2SAT 99; BMI 27.1
[2024-03-22 09:47] VITALS: BP 140/70
== END 2024-03-22 09:50 | disposition home or self-care (01) ==
PROVIDERS: PCP Internal Medicine; Visit Provider Internal Medicine Hypertension Specialist
DX: N20.0 Calculus of kidney (principal); N18.9 Chronic kidney disease, unspecified
CPT/HCPCS: 99214

== ENCOUNTER → 2024-03-22 09:38 | Outpatient (BNVA) | payer OTHER, SELFPAY | PROVIDERS: PCP Internal Medicine; Visit Provider Internal Medicine Hypertension Specialist | DX: E11.22 Type 2 diabetes mellitus with diabetic chronic kidney disease (principal); N18.4 Chronic kidney disease, stage 4 (severe); N20.0 Calculus of kidney | CPT/HCPCS: 99212 ==

== ENCOUNTER 2024-05-31 09:46 | Outpatient (REF) | payer OTHER, SELFPAY ==
[2024-06-01 12:42] LABS: Creatinine POC 1.7 mg/dL (0.5-1.4); GFR POC 41
== END 2024-05-31 09:47 | disposition home or self-care (01) ==
LOC: HO.CT 09:46
PROVIDERS: PCP Internal Medicine; Visit Provider Nurse Practitioner Family
DX: R31.0 Gross hematuria (principal)
CPT/HCPCS: 82565

== ENCOUNTER 2024-07-16 11:02 | Outpatient (AMB) | payer OTHER, SELFPAY ==
[2024-07-16 11:05] VITALS: BP 152/80; PULSE 78; O2SAT 98; BMI 27.0
--- NOTE | 2024-07-16 11:05 | HO.NEPHOV_ITS ---
Vital Signs 07/16/24 11:05 Height 5 ft 6 in Weight 167 lb BMI 27.0 BP 152/80 H Blood Pressure Location Lt brachial Position Sitting Pulse 78 Pulse Source Pulse Oximeter Pulse Oximetry (%) 98 Oxygen Delivery Method Room Air Intake Visit Reasons: CKD [place] Law Clerk Required: Yes Federal District Law Clerk Name: Anam [id number] Accompanied by: Daughter Allergies [email or web address] [From Jardiance] Adverse Reaction (Intermediate, Verified 07/16/24 11:08) reccurent UTI, hypoglycemia Medication List - Last Reconciled 07/16/24 by Elías Mosley MD acetaminophen ER (Tylenol 8 Hour) 650 mg PO Q8H PRN apixaban (Eliquis) 5 mg PO BID atorvastatin 1 tab PO BEDTIME clopidogrel 75 mg PO BEDTIME dulaglutide (Trulicity) mg subcut QWEEK insulin glargine (Lantus Solostar U-100 Insulin) units subcut isosorbide mononitrate ER 60 mg PO DAILY metoprolol succinate ER 50 mg PO DAILY pen needle, diabetic (UltiCare Pen Needle) As directed pioglitazone 1 tab PO DAILY HPI Comments Details: Elderly man with a history of diabetes mellitus and nephrolithiasis here for follow-up. Baseline serum creatinine is around 2.5 mg/dL. Recently he was found to have mild left-sided hydronephrosis and awaiting procedure. He is history of non ST elevation [place] in April 2021. History of C diff which was treated with vancomycin in the past. Accompanied by his daughter. At present he has no specific complaints like dysuria urgency increased frequency or hematuria. No fever no weight loss. Interpretor was used [facility] Medical History Ureteral stent present Chronic renal failure, stage 4 (severe) PAF (paroxysmal atrial fibrillation) Glucosuria A-fib Hypertension High cholesterol Diabetes 1.5, managed as type 2 Surgical History No pertinent past surgical history Family History Other No family history of coronary artery disease Social History Household Members: Family Housing: House Do you presently have visiting nurse or other home services: Yes Alcohol intake: never Comment: May change due to airborne precautions Patient Tobacco Use Status: Never used Tobacco e-Cigarette/Vaping Use: Never Used Advance Directives Date on File: 04/29/21 service: No Current occupational status: retired Physical Exam Vital Signs: Last Vital Signs Pulse 78 07/16/24 11:05 BP 152/80 H 07/16/24 11:05 Pulse Ox 98 07/16/24 11:05 Oxygen Delivery Method Room Air 07/16/24 11:05 BMI result Body Mass Index 27.0 Comfortable Neck supple no JVD. Lungs entry equal no rales. Heart S1-S2 heard no gallop or rub. Abdomen soft nontender. Neuro alert awake oriented. No asterixis. Extremities no edema. Results Reviewed Nephrology Results: Hgb 12.3 g/dl (14.0-18.0) L 09/07/23 WBC 7.2 X10*3/uL (4.8-10.8) 09/07/23 Plt Count 188 X10*3/uL (160-400) 09/07/23 Sodium 139 mmol/L (135-145) 11/21/23 Potassium 4.4 mmol/L (3.3-5.1) 11/21/23 Chloride 103 mmol/L (96-108) 11/21/23 Carbon Dioxide 28 mmol/L (22-29) 11/21/23 BUN 45 mg/dL (9-16) H 03/16/24 Creatinine 2.90 mg/dL (0.5-1.4) H 03/16/24 Calcium 9.7 mg/dL (8.4-10.2) 11/21/23 PTH Intact 105.4 pg/mL (8.7-77.1) H 09/07/23 Urine Creatinine 74.24 mg/dL 09/07/23 Renal US 09/05/23 Assessment & Plan Assessment & Plan (1) Nephrolithiasis: Code(s): N20.0 - Calculus of kidney Category: Medical (2) CKD (chronic kidney disease): Code(s): N18.9 - Chronic kidney disease, unspecified Category: Medical Plan . Elderly man with stage 4 chronic kidney disease in the setting of longstanding diabetes mellitus coronary disease and nephrolithiasis. Recent creatinine is 2.9 mg/dL. This is slightly elevated from the baseline. I suspect the ongoing obstruction could be playing a role. He has a h/o left-sided hydronephrosis Continue follow up with Urology He has no signs or symptoms of uremia. Fluid status is acceptable. As per nephrolithiasis should stay on low-sodium diet and increase fluid intake to maintain urine output of 2 L. Avoid nephrotoxic agents including NSAIDs. Maintain blood pressure less than 130/80 mm Hg. Discussed importance of tight control blood sugar to slow the portion of renal disease. Repeat labs ordered All his questions were answered Orders: Orders Complete Blood Count no Diff Today N18.9 - Chronic kidney disease, unspecified Comprehensive Met. Panel Today N18.9 - Chronic kidney disease, unspecified Parathyroid Hormone Intact Today N18.9 - Chronic kidney disease, unspecified Comprehensive Met. Panel 4 Months N18.9 - Chronic kidney disease, unspecified Total Protein Urine Random Today N18.9 - Chronic kidney disease, unspecified UA and rflx microscopic Today N18.9 - Chronic kidney disease, unspecified Creatinine Urine Today N18.9 - Chronic kidney disease, unspecified Coding Level of Care Code Est Pt Level 4 (50931) Diagnoses Nephrolithiasis N20.0 CKD (chronic kidney disease) N18.9
--- OUTSIDE RECORDS SUMMARY | 2024-07-16 11:48 | XMS_ITS | Encounter Summary ---
Author Organization [employer] Address [address] [facility] [address] [place] [address] Care Team Providers Care Graphics Manager Name Role Phone Charlene Delgado MD Primary Care Provider + Reason for Visit * Reason Onset Date Comments Reschedule 07/19/2023 Encounter Details Date Type Department Care Team ([facility] Contact Info) Description 07/19/2023 Telephone [facility] [address] [place], [place] [phone] Charlene Delgado MD [address] [place], [place] [phone] Reschedule Social History Tobacco Use Types Packs/Day Years Used Date Smoking Tobacco: Never Smokeless Tobacco: Never Alcohol Use Standard Drinks/Week Comments Never 0 (1 standard drink = 0.6 oz pur e alcohol) Alcohol Answer Date Recorded Frequency of Alcohol Consumption Not on file 05/26/2023 Average Number of Drinks Not on file 024 Frequency of Binge Drinking Not on file 05/06 Score 0 05/26/2023 Depression Answer Date Recorded Patient Health Questionnaire-9 Score 0 05/26/2023 Patient Health Questionnaire-9 Score 0 05/26/2023 Last PHQ-9: Questionnaire Data Not on file 0 05/26/2023 Housing Stability Answer Date Recorded What is your housing situation today? I have ja hodges 12/22/[address] you li ve. Do you have problems with any of the following? None of the above 12/22/2022 Food Insecurity Answer Date Recorded Within the past 12 months, y ou worried that your food would run out before you got money to buy more: Never True 12/22/2022 Within the past 12 months,th e food you bought just didn't last and you didn't have enough money to get more: Never True Transportation Answer Date Recorded In the past 12 months, has l ack of transportation kept you from medical appts, meetings, work or from getting things needed for daily living? No 12/22/2022 Utilities Answer Date Recorded In the past 12 months, has t he electric, gas, oil or water company threatened to shut off services in your home? No 12/22/2022 Depression Answer Date Recorded Patient Health Questionnaire-2 Score 0 05/26/2023 Sex and Gender Information Value Date Recorded Sex Assigned at Male 01/04/2022 10:19 AM EDT Legal Sex Male 10:19 AM EDT Gender Identity Male 01/04/2022 10:19 AM EDT Sexual Orientation Straight 01/04/2022 10 :19 AM EDT documented as of this encounter Miscellaneous Notes * Telephone Encounter - Betina De La Rosa - 07/19/2023 9:54 AM EDT Tc valente Morales requesting r/s documented in this encounter Plan of Treatment Not on file documented as of this encounter Visit Diagnoses Not on filedocumented in this encounter Additional Health Concerns Assessment Noted Time PHQ-9 Depression Total Score: 0 05/26/19 24 11:47 AM EDT documented as of this encounter Care Teams Graphics Manager Relationship Specialty Start Date End Date Charlene Delgado MD [address] [place] [phone] PCP - General Family Medicine 01/25/19 documented as of this encounter
--- OUTSIDE RECORDS SUMMARY | 2024-07-16 11:48 | XMS_ITS | Encounter Summary ---
Author Organization [employer] Address [address] [place] [address] Care Team Providers Care Print Production Manager Name Role Phone Charlene Delgado MD Primary Care Provider + Encounter Details Date Type Department Care Team (Late st Contact Info) Description 05/20/2022 Orders Only [facility] [address] [place] [address] Gabriela Hunt LPN Social History Tobacco Use Types Packs/Day Years Used Date Smoking Tobacco: Never Assessed Sex and Gender Information Value Date Recorded Sex Assigned at Male 01/04/2022 10:19 AM EDT Legal Sex Male 10:19 AM EDT Gender Identity Male 01/04/2022 10:19 AM EDT Sexual Orientation Straight 01/04/2022 10 :19 AM EDT documented as of this encounter Plan of Treatment Not on file documented as of this encounter Visit Diagnoses Not on filedocumented in this encounter Care Teams Print Production Manager Relationship Specialty Start Date End Date Charlene Delgado MD [address] [place] [id number] PCP - General Family Medicine 01/25/19 documented as of this encounter
--- OUTSIDE RECORDS SUMMARY | 2024-07-16 11:48 | XMS_ITS | Encounter Summary ---
Author Organization [employer] Address [address] [facility] [address] [place] [address] Care Team Providers Care Jeep Mechanic Name Role Phone Charlene Delgado MD Primary Care Provider + Encounter Details Date Type Department Care Team (Late st Contact Info) Description 07/07/2022 Orders Only [facility] [address] [place] [address] Gabriela Hunt LPN Social History Tobacco Use [...] on filedocumented in this encounter Care Teams Jeep Mechanic Relationship Specialty Start Date End Date Charlene Delgado MD [address] [place] [phone] PCP - General Family Medicine 01/25/19 documented as of this encounter
--- OUTSIDE RECORDS SUMMARY | 2024-07-16 11:48 | XMS_ITS | Clinical Summary ---
Author Organization [employer] Address [address] [facility] 7[address] [place] [address] Care Team Providers Care Sheet Metal Welder Name Role Phone Stephani Talbot MD Primary Care Provider + Allergies Active Allergy Reactions Criticality Noted Date Comments Empagliflozin High 10/07/2022 Other reaction(s): reccurent UTI, hypoglycemia Medications TRUEplus Lancets 33G misc USE FOUR TIMES DAILY DIRECTED 200 each 5 3 Active metoprolol succinate XL (Toprol-XL) 50 MG 24 hr tablet 3 Active pioglitazone (Actos) 45 MG tablet 3 Active glucose blood test strip Test blood sugar 3 times daily Active Alcohol Swabs (SM Alcohol Prep) 70 % padsIndications :Type 2 diabetes mellitus without complication, unspecified whether fpc insulin use ([facility]) USE FOUR TIMES DAILY USE FOUR TIMES DAILY 100 each 11 4 Active insulin glargine (Lantus SoloStar) 100 UNIT/ML penIndications: Type 2 diabetes mellitus with hyperglycemia, with long-term current use of insulin ([facility]) Inject 15 Units under the skin at bedtime. 13.5 mL 3 4 11/09/19 25 Active Dulaglutide 3 MG/0.5ML solution auto-injectorIn dications:Diabe diomedes mellitus type 2, insulin dependent ([facility]) Inject 0.5 mL (3 mg) under the skin 1 (one) time per week. 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 (CMS/HCC) TAKE 1 TABLET BY MOUTH EVERY MORNING 90 tablet 1 4 Active apixaban (Eliquis) 5 MG tablet TAKE 1 TABLET BY MOUTH TWICE DAILY IN THE MORNING AND IN THE EVENING 180 tablet 1 4 Active clopidogrel (Plavix) 75 MG tablet TAKE 1 TABLET BY MOUTH EVERY EVENING 90 tablet 1 4 Active insulin lispro (HumaLOG KWIKPEN) 100 UNIT/ML injection Use subcutaneous tid AC meals prn sliding scale: 150-200: 2u/ 201-250= 4u/251-300= 6u/ 301-350= 8u/351-400=10u/a arlen 400= 12u and call PCP 1 each 3 5 Active B-D UF III MINI PEN NEEDLES 31G X 5 MM misc Use TID prn sliding scale 100 each 3 5 Active atorvastatin (Lipitor) 40 MG tablet TAKE 1 TABLET BY MOUTH AT BEDTIME 90 tablet 1 5 Active pantoprazole (ProtoNix) 40 MG EC tabletIndicatio ns:Gastroesopha geal reflux disease, unspecified whether esophagitis present TAKE 1 TABLET BY MOUTH ONCE DAILY DIRECTED 90 tablet 1 5 Active Continuous Glucose Natural Foods Clerk (FreeStyle Damaris 3 [place]) deviceIndicatio ns:Type 2 diabetes mellitus with hyperglycemia, with long-term current use of insulin (CMS/[facility]) 1 each 3 times daily. Use as directed for CGM 1 each 5 Active Continuous Glucose Sensor (FreeStyle Damaris 3 Plus Sensor) miscIndications :Type 2 diabetes mellitus with hyperglycemia, with long-term current use of insulin (CMS/HCC) 1 each every 15 days. Apply 1 every 15 days as directed for CGM 2 each 11 5 Active Active Problems Problem Noted Date Diagnosed Date Immunization declined 01/11/2024 Assessment & Plan (01/11/2024 3:10 PM EST): Declined Influenza or Covid IZ today. Advised to get them at earliest convenience. He's due for Zoster and PCV 20 as well but declined. He doesn't want to have any Vax, he's concerned re side effects, he thinks he's had enough vaccines so far in his life time. We discussed re importance of disease prevention with vaccines, he didn't have any questions Advised to use face mask on the community. Bilateral leg edema 02/24/2023 Assessment & Plan (02/24/2023 1:15 PM EST): Pt has chronic venostasis changes, no dermatitis or ulceration today Use AmLactin cream daily on both legs + compression stockings, already ordered Refer to vascular surgery Vitamin D deficiency disease 02/24/2023 Assessment & Plan (02/24/2023 1:14 PM EST): Start Vit D supplementation x 3 m, counseled regarding outdoor exercise 15 min daily Cerebrovascular accident (CV A) due to stenosis of right carotid artery 11/26/2022 Chronic renal insufficiency, stage IV (severe) 0 11/26/2022 Assessment & Plan (06/29/2024 11:39 AM EDT): GFR has remained stable around 25 for the past 3 years, check CMP prior to next appointment Follow-up with renal Advised importance of tight control of diabetes hypertension hyperlipidemia Did not tolerate Jardiance, continue Trulicity. Assessment & Plan (03/16/2024 11:02 AM EST): GFR remains stable over past year, he will follow up with renal next week. Advised to have tight control of DM and HTN. Assessment & Plan (09/19/2023 3:01 PM EDT): GFR remains stable, fu with renal once/y D/w him and daughter re importance of DM and HTN control. He has no other s/s uremia or electrolyte disturbance Janes vit D weekly and repeat PTH with renal. Fu with urology to monitor prostate issues that can worsen renal fx. 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 Advised regarding tight control of DM. 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 Recommended to decrease soda and sugary beverage consumption, increase protein intake with meals (at least 1 portion of protein with each meal) to assist with satiety, increase dietary fiber Recommended at least 150 min/week of moderate intensity exercise. He has seen dietitian until last year. Hyperlipidemia 05/16/2012 Contracture of joint of hand 05/16/2012 Essential hypertension 05/01/2012 Assessment & Plan (06/29/2024 11:13 AM EDT): >>ASSESSMENT AND PLAN FOR HYPERTENSION WRITTEN ON 05/26/2023 12:28 PM BY RICKY MANCERA Uncontrolled today Continue metoprolol + isosorbide same dose, check BMP before next appointment Counseled re low salt diet/increase moderate physical activity. Check home BP BIW and prn CP/SAMANO/CHRISTOPHER Non smoking patient. FU 4 wks Assessment & Plan (02/24/2023 1:13 PM EST): Controlled. Compliant w/meds Continue metoprolol and isosorbide same dose Counseled re low salt diet/increase moderate physical activity. Check home BP BIW and prn CP/SAMANO/CHRISTOPHER Non smoking patient. Assessment & Plan (01/13/2023 2:30 PM EST): Controlled. Compliant w/meds Continue metoprolol and isosorbide Counseled re low salt diet/increase moderate physical activity. Check home BP BIW and prn CP/SAMANO/CHRISTOPHER Non smoking patient. Diabetes mellitus 05/01/2012 Assessment & Plan (06/29/2024 2:57 PM EDT): A1c has improved, it's fairly controlled for his age and conditions. I congratulated him for cutting down on high carb diet. I encouraged him to use Humalog as needed prior to meals, I will prescribe CGM to improve glucose monitoring and Humalog compliance. Continue Lantus 15U/at bedtime + Trulicity 3 mg/week + Actos 45 mg/daily Counseled regarding more frequent meals/small portion Check fingersticks 3 times daily AC meals and use Humalog according to sliding scale Increase physical activity as tolerated He declined COVID and RSV immunization, follow-up with me in 3 to 4 months Order labs prior to next appointment Assessment & Plan (03/16/2024 11:05 AM EST): Could be better controlled but not at goal yet due to dietary noncompliance. We had discussion about lifestyle modifications, pt agreed to start Humalog AC meals/sliding scale and will continue Lantus, Trulicity, and Actos. Counseled re more frequent low calorie/carb meals. Check fgstk TID Encouraged physical activity as tolerated. FU in 2 months. Pt agreed to influenza vaccine and PCV-20, and declined Covid. Assessment & Plan (01/11/2024 10:31 AM EST): Uncontrolled, A1c is not at goal. I will increase Trulicity to 3mg to help also with dietary compliance, decrease appetite and improve insulin resistance, patient has preciously tolerated other doses. Continue Insulin 15u + Actos 45mg. Counseled re more frequent low calorie/carb meals. Check fgstk 2x daily Encouraged physical activity as tolerated. FU in 2 months. Declined Influenza IZ today. Assessment & Plan (01/11/2024 10:29 AM EST): >>ASSESSMENT AND PLAN FOR TYPE 2 DIABETES MELLITUS ([facility]) WRITTEN ON 01/13/2023 4:09 PM BY STEPHANI TALBOT MD Uncontrolled, increase Trulicity to 1.5 mg /wk and FU with me in 6 wks Reschedule missed renetta with reliability specialist Cont Milo and obtain labs I had a lengthy discussion with him about importance of dietary compliance, avoid sugary drinks, sweet treats and carbs. Assessment & Plan (01/11/2024 10:29 AM EST): >>ASSESSMENT AND PLAN FOR TYPE 2 DIABETES MELLITUS ([facility]) WRITTEN ON 11/09/2023 12:40 PM BY DAGMAR FRANCE - probably better controlled, but suspect it is not at goal - continue Lantus 15 units + Actos 45 + Trulicity 1.5 mg and will f/u A1C. I will adjust medication if needed - advised regarding importance of low carb meals and eating in small portions - Counseled re more frequent low calorie/carb meals. - Check fgstk twice daily - Encouraged physical activity as tolerated. - FU in 2 months. Assessment & Plan (09/19/2023 2:58 PM EDT): Uncontrolled. Encouraged compliance with diet. Increase Lantus to 15U/d, discussed with patient and daughter re importance of med compliance. Continue Trulicity + Actos. Encouraged to continue exercise daily Fu A1c in 6-8w Assessment & Plan (05/26/2023 12:29 PM EDT): A1c improving, not at goal Increase Lantus to 12 units /daily, can increase to 14 units if FBS is above 120 Continue Trulicity + Actos 45mg. Doesn't seem to have been on jardiance for a long time Counseled re more frequent low calorie/carb meals. Check fgstk daily Encouraged physical activity as tolerated. FU in 4 wks w/ me Assessment & Plan (02/24/2023 1:13 PM EST): Uncontrolled, increase lantus 10 units and FU reliability specialist next month Resolved Problems Problem Noted Date Diagnosed Date Resolved Date Candidal balanitis 01/12/2023 01/12/2023 Clostridium difficile diarrhea 11/26/2022 06/29/2024 Abrasion of skin of left great toe 10/14/2022 06/29/2024 Encounters Date Type Department Care Team Description 06/29/2024 11:15 AM EDT Office Visit [address] [address] Stephani Talbot MD Chronic renal insufficiency, stage IV (severe) (CMS/HCC) (Primary Dx); Type 2 diabetes mellitus with hyperglycemia, with long-term current use of insulin (CMS/HCC); Class 1 obesity due to excess calories with serious comorbidity and body mass index (BMI) of 30.0 to 30.9 in adult; Dietary counseling; Exercise counseling 06/29/2024 Travel 06/26/[address] [id number] Stephani Talbot MD Chart prep 06/20/[address] [facility] [address] [place], [place] [address], [place] [address] Stephani Talbot MD Pre-visit Planning (SDOH screening negative and tobacco screening negative) 06/04/[address] [facility] [address] [place] [address] Stephani Talbot MD Gastroesophageal reflux disease, unspecified whether esophagitis present 05/31/2024 Orders Only GENERIC EXTERNAL DATA DEPARTMENT Provider, Generic External Data 04/25/[address] [facility] [address] [place] [address] Stephani Talbot MD from Last 3 Months Immunizations Name Administration Dates Next Due Influenza High-dose Quadriva lent Preservative Free 01/13/2023,11/26/2021 Influenza injectable quadriv alent preservative free 03/21/2018,12/02/2014 Influenza, High Dose Seasona l, Preservative Free 03/16/2024,04/11/2019 Influenza, IIV3, injectable 04/11/2019,0 03/21/2018,12/02/2014,01/17,11/19/2010,02/15/2008 Pneumococcal Conjugate PCV 13 12/02/2014 Pneumococcal Conjugate PCV 20 03/16/2024 Pneumococcal Polysaccharide PPSV23 12/04/2008 TD (adult), 2 Lf tetanus tox oid, preservative free, adsorbed 07/06/2011 Td (adult), unspecified 07/06/2011 Tdap 02/07/2017 Zoster, live 07/24/2009 Social History Tobacco Use Types Packs/Day Years Used Date Smoking Tobacco: Never Smokeless Tobacco: Never Tobacco Cessation:Counseling Given: Not Answered Alcohol Use Standard Drinks/Week Comments Never 0 [...] housing situation today? I have ja [employer]ges 06/20/[address] you li ve. Do you have problems with any of the following? None of the above 06/20/2024 Food Insecurity Answer Date Recorded Within the past 12 months, y ou worried that your food would run out before you got money to buy more: Never True 06/20/2024 Within the past 12 months,th e food you bought just didn't last and you didn't have enough money to get more: Never True Transportation Answer Date Recorded In the past 12 months, has l ack of transportation kept you from medical appts, meetings, work or from getting things needed for daily living? No 06/20/2024 Utilities Answer Date Recorded In the past 12 months, has t he electric, gas, oil or water company threatened to shut off services in your home? No 06/20/2024 Depression Answer Date Recorded Patient Health Questionnaire-2 Score 1 06/29/2024 Internet Access Answer Date Recorded Internet Access Q1 Yes 06/20/2024 Internet Access Q2 Not on file 06/20/2024 Sex and Gender Information Value Date Recorded Sex Assigned at Male 01/04/2022 10:19 AM EDT Legal Sex Male 10:19 AM EDT Gender Identity Male 01/04/2022 10:19 AM EDT Sexual Orientation Straight 01/04/2022 10 :19 AM EDT Last Filed Vital Signs Vital Sign Reading Time Taken Comments Blood Pressure 148/84 06/29/2024 11:05 AM EDT Pulse 91 06/29/2024 11:05 AM EDT Temperature 36.1 ??C (96.9 ??F) 06/29/2024 11:05 AM E DT Respiratory Rate 16 11/09/2023 10:56 AM EDT Oxygen Saturation 98% 06/29/2024 11:05 AM EDT Inhaled Oxygen Concentration - - Weight 76.3 kg (168 lb 4 oz) 06/29/2024 11:05 AM EDT Height 157.5 cm (5' 2 ) 06/29/2024 11:05 AM EDT Body Mass Index 30.77 06/29/2024 11:05 AM EDT Plan of Treatment Health Maintenance Due Date Last Done Comments Alcohol/Substance Use Screening 1957 Hepatitis C Screening 1963 Zoster Vaccines (2 of 3) 09/18/2009 07/24/2009 RSV Patients and Patients Aged 60 years or older (1 - 1-dose 75+ series) 2021 COVID-19 Vaccine (5 - 2023- season) 2023 11/04/2021, 05/21/2021, 07/01/2020, Additional history exists Lipid Panel 01/26/2024 01/25/2023, 11/07, 11/05/2020, Additional history exists Diabetes: Hemoglobin A1C 09/28/2024 025, 01/11/2024, 09/19/2023, Additional history exists SDOH Screening 06/20/2025 06/20/2024 Depression Screening 06/29/2025 06/29/2024, 05/26/19 Diabetes: Foot Exam 06/29/2025 06/29/2024, 06/29/2024, 06/29/2024, Additional history exists Tobacco Screening 06/29/2025 06/29/2024 Eye Exam 04/11/2026 04/11/2024 DTaP/Tdap/Td Vaccines (2 - Td or Tdap) 02/07/2027 02/07/2017, 07/06/2011, 07/06/2011 Influenza Vaccine Completed 03/16/2024, , 11/26/2021, Additional history exists Pneumococcal Vaccine: 50+ Years Completed 03/16/2024, 12/02/2014, 12/04/2008 HIB Vaccines Aged Out No longer eligi ble based on patient's age to complete this topic HPV Vaccines Aged Out No longer eligi ble based on patient's age to complete this topic Hepatitis A Vaccines Aged Out No long er eligible based on patient's age to complete this topic Hepatitis B Vaccines Aged Out No long er eligible based on patient's age to complete this topic IPV Vaccines Aged Out No longer eligi ble based on patient's age to complete this topic Meningococcal Vaccine Aged Out No ranjana zakia eligible based on patient's age to complete this topic RSV under 20 months Aged Out No longe r eligible based on patient's age to complete this topic Rotavirus Vaccines Aged Out No longer eligible based on patient's age to complete this topic Procedures Procedure Name Priority Date/Time Associated Diagnosis Comments POCT GLYCATED HEMOGLOBIN, TOTAL Routine 06/29/2024 11:10 AM EDT Type 2 diabetes mellitus with hyperglycemia, with long-term current use of insulin ([facility]) POCT GLUCOSE Routine 06/29/2024 11:06 AM EDT Type 2 diabetes mellitus with hyperglycemia, with long-term current use of insulin ([facility]) POCT CREATININE GFR Routine 05/31/2024 1 0:04 AM EDT HM DIABETES EYE EXAM Routine 04/11/2024 LIPID PANEL WITH REFLEX TO DIRECT LDL Routine 01/25/2023 9:47 AM EST Type 2 diabetes mellitus with hyperglycemia, with long-term current use of insulin ([facility]) from Last 3 Months or Most Recently Relevant to Health Maintenance Results * (ABNORMAL) POCT HGB A1C (06/29/2024 11:10 AM EDT) Hemoglobin A1C 7.3(A) 4.0 - 6.0 % QC Media Lot # [id number] Lot# Expiration Date 727 Blood 06/29/2024 11:1 0 AM EDT Stephani Talbot MD POINT OF CARE TEST ENTER /EDIT ORDERABLES Final Result * POCT Glucose (06/29/2024 11:06 AM EDT) Glucose Blood, POC 177 60 - 200 mg/dL QC Media Lot # [id number] Lot# Expiration Date [id number] Blood Capillary blood specimen / Unknown 06/29/2024 11:06 AM EDT Stephani Talbot MD POINT OF CARE TEST ENTER /EDIT ORDERABLES Final Result * (ABNORMAL) POCT Creatinine GFR (05/31/2024 10:04 AM EDT) Pathologist [facility] POCT Creatinine 1.7(H) 0.5 - 1.4 mg/dL [facility] GFR POC 41 [facility] Comment:Chronic Kidney Disea se: Estimated GFR < 60 mL/min/[id number] Kidney Disease: Estimated GFR < 15 mL/min/1.73m2 05/31/2024 10:0 4 AM EDT 06/01/2024 12:40 PM EDT Narrative [facility] - 06/01/2024 12:42 PM EDT [id number] us Generic External Data Provider LAB POINT OF CARE TEST DOCKED DEVICE ORDERABLES Final Result [facility] [address] [place] [address] [phone] * Diabetes Eye Exam (04/11/2024) [facility] Eye Exam Normal Normal us Stephani Talbot MD HEALTH MAINTENANCE Final Result * (ABNORMAL) Lipid Panel with Reflex to Direct LDL (01/25/2023 9:47 AM EST) [facility] Triglycerides 97 <150 mg/dL [facility] Comment:Desirable Triglyceri de: less than 150 mg/dLBorderline High Triglyceride 150-199 mg/dLHigh Triglyceride: 200-499 mg/dLVery High Triglyceride: greater than or equal to 5OO mg/dL Cholesterol 147 <200 mg/dL [facility] Comment:Desirable Cholestero l: less than 200 mg/dLBorderline High Cholesterol: 200-239 mg/dLHigh Cholesterol: greater than 239 mg/dL LDL Cholesterol Calculated 96 <100 mg/dL [facility] Comment:Desirable LDL: less than 100 mg/dLNear Optimal/Above Optimal LDL: 110- 129 mg/dLBorderline High LDL: 130-159 mg/dLHigh LDL: 160-189 mg/dLVery High LDL: greater than or equal to 190 mg/dL HDL Cholesterol 32(L) >40 mg/dL [facility] Comment:Desirable HDL: great er than 40 mg/dL Note: This HDL assay may give artificially low results in patients with liver disease. Blood 01/25/2023 9:47 AM EST 01/25/2023 11:16 AM EST Stephani Talbot MD LAB BLOOD ORDERABLES Fin al Result [facility] [address] [place] [address] [phone] from Last 3 Months or Most Recently Relevant to Health Maintenance Insurance [facility] [employer] (O D-SNP) JACOB CHANEY [id number] [facility] [employer] (O D-SNP) Care Teams Sheet Metal Welder Relationship Specialty Start Date End Date Stephani Talbot MD [address] [place] [phone] PCP - General Family Medicine 01/25/19
--- OUTSIDE RECORDS SUMMARY | 2024-07-16 11:48 | XMS_ITS | Encounter Summary ---
Author Organization [employer] Address [address] [place] [address] Care Team Providers Care Concrete Mixer Truck Driver Name Role Phone Charlene Delgado MD Primary Care Provider + Encounter Details Date Type Department Care Team (Late st Contact Info) Description 04/21/2022 Orders Only [facility] [address] [place] [address] Gabriela Hunt LPN Social History Tobacco Use [...] on filedocumented in this encounter Care Teams Concrete Mixer Truck Driver Relationship Specialty Start Date End Date Charlene Delgado MD [address] [place] [phone] PCP - General Family Medicine 01/25/19 documented as of this encounter
--- OUTSIDE RECORDS SUMMARY | 2024-07-16 11:48 | XMS_ITS | Encounter Summary ---
Author Organization [employer] Address [address] [facility] [address] [place] [address] Care Team Providers Care Bill Sorter Name Role Phone Charlene Delgado MD Primary Care Provider + Encounter Details Date Type Department Care Team (Late st Contact Info) Description 10/12/2022 Orders Only [facility] [address] [place] [address] Gabriela Hunt LPN Social History Tobacco Use [...] on filedocumented in this encounter Care Teams Bill Sorter Relationship Specialty Start Date End Date Charlene Delgado MD [address] [place] [phone] PCP - General Family Medicine 01/25/19 documented as of this encounter
--- OUTSIDE RECORDS SUMMARY | 2024-07-16 11:48 | XMS_ITS | Encounter Summary ---
Author Organization [employer] Address [address] [place] [address] Care Team Providers Care Door Maker Name Role Phone Charlene Delgado MD Primary Care Provider + Encounter Details Date Type Department Care Team (Late st Contact Info) Description 03/23/2022 Orders Only [facility] [address] [place] [address] Gabriela uHnt LPN Social History Tobacco Use Types Packs/Day [...] on filedocumented in this encounter Care Teams Door Maker Relationship Specialty Start Date End Date Charlene Delgado MD [address] [place] [phone] PCP - General Family Medicine 01/25/19 documented as of this encounter
--- OUTSIDE RECORDS SUMMARY | 2024-07-16 11:48 | XMS_ITS | Encounter Summary ---
Author Organization [employer] Address [address] [facility] [facility] [address] 7t [place] [address] Care Team Providers Care National Dedicated Truck Driver Name Role Phone Charlene Delgado MD Primary Care Provider + Reason for Visit * Reason Comments Med Refill Encounter Details Date Type Department Care Team ([facility] Contact Info) Description 12/29/2022 Refill [facility] MEDICINE [address] [place], [place] [phone] Charlene Delgado MD 230 [place], [place] [phone] Coronary artery disease of confed[place] sal[place] artery of confed[place] sal[place] heart with stable angina pectoris (CMS/HCC) Social History Tobacco Use Types Packs/Day Years Used Date Smoking Tobacco: Never Assessed Housing Stability Answer Date Recorded What is your housing situation today? I have jabianca hodges 12/22/[address] you [...] off services in your home? No 12/22/2022 Sex and Gender Information Value Date Recorded Sex Assigned at Male 01/04/2022 10:19 AM EDT Legal Sex Male 10:19 AM EDT Gender Identity Male 01/04/2022 10:19 AM EDT Sexual Orientation Straight 01/04/2022 10 :19 AM EDT documented as of this encounter Plan of Treatment Not on file documented as of this encounter Visit Diagnoses Diagnosis Coronary artery disease of conf[place] artery of conf[place] heart with stable angina pectoris (CMS/HCC) documented in this encounter Care Teams National Dedicated Truck Driver Relationship Specialty Start Date End Date Charlene Delgado MD [address] [place] [phone] PCP - General Family Medicine 01/25/19 documented as of this encounter
--- OUTSIDE RECORDS SUMMARY | 2024-07-16 11:48 | XMS_ITS | Encounter Summary ---
Author Organization [employer] Address [address] [facility] [address] 7t [place] [address] Care Team Providers Care Coil Tester Name Role Phone Charlene Delgado MD Primary Care Provider + Encounter Details Date Type Department Care Team ([facility] st Contact Info) Description 12/31/2022 Abstract [facility] MEDICINE 230 [place], [place] [phone] Charlene Delgado MD 230 [place], [place] [phone] Social History Tobacco Use Types Packs/Day Years [...] on filedocumented in this encounter Care Teams Coil Tester Relationship Specialty Start Date End Date Charlene Delgado MD [address] [place] [phone] PCP - General Family Medicine 01/25/19 documented as of this encounter
--- OUTSIDE RECORDS SUMMARY | 2024-07-16 11:48 | XMS_ITS | Encounter Summary ---
Author Organization [employer] Address [address] [facility] 7t [place] [address] Care Team Providers Care Gasser Machine Operator Name Role Phone Charlene Delgado MD Primary Care Provider + Encounter Details Date Type Department Care Team ([facility] st Contact Info) Description 03/23/2022 Orders Only [facility] MEDICINE 230 [place], [place] [phone] Aimee Vogel LPN Social History Tobacco Use Types Packs/Day [...] on filedocumented in this encounter Care Teams Gasser Machine Operator Relationship Specialty Start Date End Date Charlene Delgado MD 230 [place] [address] PCP - General Family Medicine 01/25/19 documented as of this encounter
--- OUTSIDE RECORDS SUMMARY | 2024-07-16 11:48 | XMS_ITS | Encounter Summary ---
Author Organization [employer] Address [address] [facility] [address] [facility] [address] 7t [place] [address] Care Team Providers Care Account Manager Sales Representative Name Role Phone Charlene Delgado MD Primary Care Provider + Encounter Details Date Type Department Care Team ([facility] st Contact Info) Description 12/31/2022 Abstract [facility] MEDICINE 230 [place], [place] [phone] Charlene Delgado MD 230 [place], [place] [phone] Social History Tobacco Use Types Packs/Day Years [...] on filedocumented in this encounter Care Teams Account Manager Sales Representative Relationship Specialty Start Date End Date Charlene Delgado MD [address] [place] [phone] PCP - General Family Medicine 01/25/19 documented as of this encounter
--- OUTSIDE RECORDS SUMMARY | 2024-07-16 11:48 | XMS_ITS | Encounter Summary ---
Author Organization [employer] Address [address] 7t [place] [address] Care Team Providers Care Steam Trap Worker Name Role Phone Charlene Delgado MD Primary Care Provider + Encounter Details Date Type Department Care Team ([facility] st Contact Info) Description 12/31/2022 Abstract [facility] MEDICINE 230 [place], [place] [phone] Charlene Delgado MD 230 [place], [place] [phone] Social History Tobacco Use Types Packs/Day Years [...] on filedocumented in this encounter Care Teams Steam Trap Worker Relationship Specialty Start Date End Date Charlene Delgado MD [address] [place] [phone] PCP - General Family Medicine 01/25/19 documented as of this encounter
--- OUTSIDE RECORDS SUMMARY | 2024-07-16 11:48 | XMS_ITS | Encounter Summary ---
Author Organization [employer] Address [address] [facility] [address] [facility] [address] 7t [place] [address] Care Team Providers Care Tin Stacker Name Role Phone Charlene Delgado MD Primary Care Provider + Encounter Details Date Type Department Care Team (Late st Contact Info) Description 06/17/2022 Orders Only [facility] MED & PEDS [address] [place] [address] Gabriela Hunt LPN Social History Tobacco Use [...] on filedocumented in this encounter Care Teams Tin Stacker Relationship Specialty Start Date End Date Charlene Delgado MD [address] [place] [phone] PCP - General Family Medicine 01/25/19 documented as of this encounter
--- OUTSIDE RECORDS SUMMARY | 2024-07-16 11:49 | XMS_ITS | Clinical Summary ---
Author Organization [facility] Address [address] [place] [address] Phone Care Team Providers Care Pv Design And Installation Technician Name Role Phone Charlene Delgado MD Primary Care Provider [phone] Allergies No known active allergies Medications pioglitazone (ACTOS) 45 MG tablet Take 1 tablet by mouth 1 (one) time each day Active atorvastatin (LIPITOR) 40 MG tablet Take 40 mg by mouth at bed time 03/11/2020 Active dorzolamide-dennis lol (COSOPT) 22.3-6.8 MG/ML ophthalmic solution INSTILL 1 DROP IN EACH EYE TWICE DAILY 04/02/2020 Active latanoprost (XALATAN) 0.005 % ophthalmic solution 04/02/2020 Active Eliquis 5 MG tablet Take 5 mg by mouth every morning and evening 05/29/2021 Active clopidogrel (PLAVIX) 75 MG tablet Take 75 mg by mouth at bed time 05/29/2021 Active isosorbide mononitrate (IMDUR) 60 MG 24 hr tablet Take 60 mg by mouth 05/29/2021 Active metoprolol succinate XL (TOPROL XL) 25 MG 24 hr tablet Take 12.5 mg by mouth 1 (one) time each day in the evening 05/29/2021 Active Dulaglutide (Trulicity) 0.75 MG/0.5ML solution pen-injector Inject 0.75 mg under the skin 11/13/2021 Active Active Problems Problem Noted Date Diagnosed Date Obese class I 02/09/2023 02/09/2023 Nephrolithiasis 02/09/2023 02/09/2023 Type 2 diabetes mellitus 02/09/2023 023 Chronic kidney disease stage 4 11/26/2022 Overview (05/13/2023): Last Assessment & Plan: Obtained most recent nephrology note Order labs Counseled regarding tight control of DM and HTN Glaucoma 11/26/2022 COVID-19 11/26/2022 Clostridium difficile diarrhea 11/26/2022 Chronic low back pain 11/26/2022 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 11/26/2022 Vascular insufficiency 10/14/2022 Slow transit constipation 10/14/2022 Recurrent urinary tract infection 10/14/2022 Myocardial infarction 10/14/2022 Internal carotid artery stenosis 10/14/2022 Injury of head 10/14/2022 Hypoglycemia 10/14/2022 Hyperkalemia 10/14/2022 Hydronephrosis 10/14/2022 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 10/14/2022 Asthenia 10/14/2022 Abrasion of skin of left great toe 10/14/2022 Abrasion of face 10/14/2022 Abnormal gait 10/14/2022 Acute non-ST segment elevation myocardial infarc tion 05/03/2021 Chronic kidney disease 05/22/2020 Hypertensive disorder 05/22/2020 Renal disorder due to type 2 diabetes mellitus 0 05/22/2020 Obesity 11/14/2017 Hyperlipidemia 05/16/2012 Contracture of joint of hand 05/16/2012 Type 2 diabetes mellitus 05/01/2012 Overview (05/13/2023): Last Assessment & Plan: Uncontrolled, increase Trulicity to 1.5 mg /wk and FU with me in 6 wks Reschedule missed renetta with consulting networking engineer Woo Pedraza and obtain labs I had a lengthy discussion with him about importance of dietary compliance, avoid sugary drinks, sweet treats and carbs. Essential hypertension 05/01/2012 Overview (05/13/2023): Last Assessment & Plan: Controlled. Compliant w/meds Continue metoprolol and isosorbide Counseled re low salt diet/increase moderate physical activity. Check home BP BIW and prn CP/SAMANO/CHRISTOPHER Non smoking patient. Family History Medical History Relation Comments Heart disease Mother Hypertension Mother Stroke Mother Diabetes Sibling 1 Kidney disease Sibling 2 Cancer Sibling 3 Relation Status Comments Father Unknown Mother Unknown Sibling 1 Sibling 2 Sibling 3 Social History Tobacco Use Types Packs/Day Years Used Date Smoking Tobacco: Never Smokeless Tobacco: Never Tobacco Cessation:Counseling Given: No Alcohol Use Standard Drinks/Week Comments No 0 (1 standard drink = 0.6 oz pur e alcohol) Sex and Gender Information Value Date Recorded Sex Assigned at Not on file Legal Sex Male 5:09 PM EST Gender Identity Not on file Sexual Orientation Not on file Last Filed Vital Signs Vital Sign Reading Time Taken Comments Blood Pressure 124/64 02/10/2023 1:03 PM EST Pulse 78 02/10/2023 1:03 PM EST Temperature - - Respiratory Rate - - Oxygen Saturation 98% 08/23/2022 2:53 PM EDT Inhaled Oxygen Concentration - - Weight 73 kg (161 lb) 02/10/2023 1:03 PM EST Height 157.5 cm (5' 2 ) 05/21/2019 12:00 PM EDT Body Mass Index 29.45 05/21/2019 12:00 PM EDT Plan of Treatment Health Maintenance Due Date Last Done Comments Pneumococcal Vaccine: 50+ Years (3 of 3 - PPSV23, PCV20 or PCV21) 01/27/2015 12/02/2014, 12/04/2008 Diabetes: Ophthalmology Exam 04/07/2020 Diabetes: Pedal Pulse Checked 04/07/2020 Diabetes: Sensory Foot Exam 04/07/2020 Diabetes: Visual Foot Exam 04/07/2020 Diabetes: Hemoglobin A1C 04/15/2023 01/13/2023 Influenza Vaccine (Season Ended) 2024 04/11/2019, 03/21/2018, 12/02/2014 Pneumococcal Vaccine: Peds ( 0 to 5 Years) and At-Risk Patients (6 to 49 Years) Discontinued 12/02/2014, 12/04/2008 Hepatitis B Vaccine Aged Out No longe r eligible based on patient's age to complete this topic Insurance [facility] MCR ([id number]) [facility] ([id number]) JACOB CHANEY [id number] Care Teams Pv Design And Installation Technician Relationship Specialty Start Date End Date Charlene Delgado MD [address] [place] [phone] PCP - General 03/17/20
--- OUTSIDE RECORDS SUMMARY | 2024-07-16 11:49 | XMS_ITS | Encounter Summary ---
Author Organization [employer] Address [address] [facility] 7t [place] [address] Care Team Providers Care Monitor Worker Name Role Phone Charlene Delgado MD Primary Care Provider + Reason for Visit * Reason Comments Med Refill Encounter Details Date Type Department Care Team ([facility] st Contact Info) Description 04/12/2023 Refill [facility] MEDICINE 230 [place], [place] [phone] Charlene Delgado MD 230 [place], [place] [phone] Diabetes mellitus type 2, insulin dependent (CMS/HCC) Social History Tobacco Use Types Packs/Day Years Used Date Smoking Tobacco: Never Smokeless Tobacco: Never Alcohol Use Standard Drinks/Week Comments Never 0 (1 standard drink = 0.6 oz pur e alcohol) Housing Stability Answer Date Recorded What is [...] as of this encounter Visit Diagnoses Diagnosis Diabetes mellitus type 2, insulin dependent (CMS/[facility]) documented in this encounter Care Teams Monitor Worker Relationship Specialty Start Date End Date Charlene Delgado MD [address] [place] [phone] PCP - General Family Medicine 01/25/19 documented as of this encounter
== END 2024-07-16 11:23 | disposition home or self-care (01) ==
LOC: HO.HKA 11:03
PROVIDERS: PCP Internal Medicine; Visit Provider Internal Medicine Hypertension Specialist
DX: N20.0 Calculus of kidney (principal); N18.9 Chronic kidney disease, unspecified
CPT/HCPCS: 99214

== ENCOUNTER 2024-07-16 11:02 | Outpatient (REF) | payer OTHER, SELFPAY ==
--- OUTSIDE RECORDS SUMMARY | 2024-07-16 12:33 | XMS_ITS | Encounter Summary ---
Author Organization [employer] Address [address] [facility] [address] 7t [place] [address] Care Team Providers Care Policy Service Coordinator Name Role Phone Charlene Delgado MD Primary Care Provider + Encounter Details Date Type Department Care Team (Late st Contact Info) Description 05/20/2022 Orders Only [facility] MED & PEDS 505 [place] [address] Gabriela Hunt LPN Social History Tobacco Use [...] on filedocumented in this encounter Care Teams Policy Service Coordinator Relationship Specialty Start Date End Date Charlene Delgado MD [address] [place] [phone] PCP - General Family Medicine 01/25/19 documented as of this encounter
--- OUTSIDE RECORDS SUMMARY | 2024-07-16 12:33 | XMS_ITS | Encounter Summary ---
Author Organization [employer] Address [address] [facility] [facility] [address] 7t [place] [address] Care Team Providers Care Operations Architect Name Role Phone Charlene Delgado MD Primary Care Provider + Encounter Details Date Type Department Care Team (Late st Contact Info) Description 03/23/2022 Orders Only [facility] MED & PEDS 505 [place] [address] Gabriela Hunt LPN Social History Tobacco Use [...] on filedocumented in this encounter Care Teams Operations Architect Relationship Specialty Start Date End Date Charlene Delgado MD [address] [place] [phone] PCP - General Family Medicine 01/25/19 documented as of this encounter
--- OUTSIDE RECORDS SUMMARY | 2024-07-16 12:33 | XMS_ITS | Clinical Summary ---
Author Organization [email or web address] Address [address] [facility] 7t [place] [address] Care Team Providers Care Chicken Cutter Name Role Phone Stephani Talbot MD Primary [...] 2 diabetes mellitus without complication, unspecified whether longterm insulin use ([facility]) USE FOUR TIMES DAILY USE FOUR TIMES DAILY 100 each 11 4 Active insulin glargine (Lantus SoloStar) 100 UNIT/ML penIndications: Type 2 diabetes mellitus with hyperglycemia, with long-term current use of insulin ([facility]) Inject 15 Units under the skin at bedtime. 13.5 mL 3 4 11/09/19 25 Active Dulaglutide 3 MG/0.5ML solution auto-injectorIn dications:Diabe diomedes mellitus type 2, insulin dependent ([facility]) Inject 0.5 mL (3 mg) under the skin 1 (one) time per week. 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 Use as [...] AND PLAN FOR TYPE 2 DIABETES MELLITUS ([facility]) WRITTEN ON 01/13/2023 4:09 PM BY STEPHANI TALBOT MD Uncontrolled, increase Trulicity to 1.5 mg /wk and FU with me in 6 wks Reschedule missed renetta with carrot harvester Cont Milo and obtain labs I had a lengthy discussion with him about importance of dietary compliance, avoid sugary drinks, sweet treats and carbs. Assessment & Plan (01/11/2024 10:29 AM EST): >>ASSESSMENT AND PLAN FOR TYPE 2 DIABETES MELLITUS ([facility]) WRITTEN ON 11/09/2023 12:40 PM BY DAGMAR [...] Uncontrolled, increase lantus 10 units and FU carrot harvester next month Resolved Problems Problem Noted Date Diagnosed Date Resolved Date Candidal balanitis 01/12/2023 01/12/2023 Clostridium difficile diarrhea 11/26/2022 06/29/2024 Abrasion of skin of left great toe 10/14/2022 06/29/2024 Encounters Date Type Department Care Team Description 06/29/2024 11:15 AM EDT Office Visit [address] [address] Stephani Talbot MD Chronic renal insufficiency, stage IV (severe) (CMS/HCC) (Primary Dx); Type 2 diabetes mellitus with hyperglycemia, with long-term current use of insulin (CMS/HCC); Class 1 obesity due to excess calories with serious comorbidity and body mass index (BMI) of 30.0 to 30.9 in adult; Dietary counseling; Exercise counseling 06/29/2024 Travel 06/26/[address] [address] Stephani Talbot MD Chart prep 06/20/2024 Patient Outreach [facility] [address] [place], [place] [address], [place] [address] Stephani Talbot MD Pre-visit Planning (SDOH screening negative and tobacco screening negative) 06/04/2024 Refill [facility] [address] [facility] [place] [address] Stephani Talbot MD Gastroesophageal reflux disease, unspecified whether esophagitis present 05/31/2024 Orders Only GENERIC EXTERNAL DATA DEPARTMENT Provider, Generic External Data 04/25/2024 Abstract [facility] [address] [facility] [place] [address] Stephani Talbot MD from Last 3 Months [...] hyperglycemia, with long-term current use of insulin ([facility]) POCT GLUCOSE Routine 06/29/2024 11:06 AM EDT Type 2 diabetes mellitus with hyperglycemia, with long-term current use of insulin ([facility]) POCT CREATININE GFR Routine 05/31/2024 1 0:04 AM EDT HM DIABETES EYE EXAM Routine 04/11/2024 LIPID PANEL WITH REFLEX TO DIRECT LDL Routine 01/25/2023 9:47 AM EST Type 2 diabetes mellitus with hyperglycemia, with long-term current use of insulin ([facility]) from Last 3 Months or Most Recently [...] Creatinine GFR (05/31/2024 10:04 AM EDT) Pathologist [facility] POCT Creatinine 1.7(H) 0.5 - 1.4 mg/dL [facility] GFR POC 41 [facility] Comment:Chronic Kidney Disea se: Estimated GFR < 60 mL/min/[id number] Kidney Disease: Estimated GFR < 15 mL/min/1.73m2 05/31/2024 10:0 4 AM EDT 06/01/2024 12:40 PM EDT Narrative [facility] - 06/01/2024 12:42 PM EDT [id number] Generic External Data Provider LAB POINT OF CARE TEST DOCKED DEVICE ORDERABLES Final Result [facility] [address] [place] [address] [phone] * Diabetes Eye Exam (04/11/2024) [facility] Eye Exam Normal Normal us Stephani Talbot MD HEALTH MAINTENANCE Final Result * (ABNORMAL) Lipid Panel with Reflex to Direct LDL (01/25/2023 9:47 AM EST) [facility] Triglycerides 97 <150 mg/dL [facility] Comment:Desirable Triglyceri de: less than 150 mg/dLBorderline High Triglyceride 150-199 mg/dLHigh Triglyceride: 200-499 mg/dLVery High Triglyceride: greater than or equal to 5OO mg/dL Cholesterol 147 <200 mg/dL [facility] Comment:Desirable Cholestero l: less than 200 mg/dLBorderline High Cholesterol: 200-239 mg/dLHigh Cholesterol: greater than 239 mg/dL LDL Cholesterol Calculated 96 <100 mg/dL [facility] Comment:Desirable LDL: less than 100 mg/dLNear Optimal/Above Optimal LDL: 110- 129 mg/dLBorderline High LDL: 130-159 mg/dLHigh LDL: 160-189 mg/dLVery High LDL: greater than or equal to 190 mg/dL HDL Cholesterol 32(L) >40 mg/dL [facility] Comment:Desirable HDL: great er than 40 mg/dL Note: This HDL assay may give artificially low results in patients with liver disease. Blood 01/25/2023 9:47 AM EST 01/25/2023 11:16 AM EST Stephani Talbot MD LAB BLOOD ORDERABLES Fin al Result [facility] [address] [place] [address] [phone] from Last 3 Months or Most Recently Relevant to Health Maintenance Insurance [facility] INTERMEDIATE OPTIONS (O D-SNP) JACOB CHANEY [id number] [facility] INTERMEDIATE OPTIONS (O D-SNP) Care Teams Chicken Cutter Relationship Specialty Start Date End Date Stephani Talbot MD [address] [place] [phone] PCP - General Family Medicine 01/25/19
--- OUTSIDE RECORDS SUMMARY | 2024-07-16 12:33 | XMS_ITS | Encounter Summary ---
Author Organization [employer] Address [address] [facility] 7t [place] [address] Care Team Providers Care Tomato Paste Maker Name Role Phone Charlene Delgado MD Primary Care Provider + Reason for Visit * Reason Comments Med Refill Encounter Details Date Type Department Care Team ([facility] st Contact Info) Description 04/12/[address] [facility] MEDICINE 230 [place], [place] [phone] Charlene Delgado MD 230 [place], [place] [phone] Diabetes mellitus type 2, insulin dependent (CMS/HCC) [...] Diagnosis Diabetes mellitus type 2, insulin dependent (CMS/[facility]) documented in this encounter Care Teams Tomato Paste Maker Relationship Specialty Start Date End Date Charlene Delgado MD [address] [place] [phone] PCP - General Family Medicine 01/25/19 documented as of this encounter
--- OUTSIDE RECORDS SUMMARY | 2024-07-16 12:33 | XMS_ITS | Encounter Summary ---
Author Organization [employer] Address [address] [facility] [address] 7t [place] [address] Care Team Providers Care Director Of Infection Prevention Name Role Phone Charlene Delgado MD Primary Care Provider + Encounter Details Date Type Department Care Team ([facility] st Contact Info) Description 12/31/2022 Abstract [facility] MEDICINE 230 [place], [place] [phone] Charlene Delgado MD 230 [place], [place] [phone] Social History Tobacco Use Types Packs/Day Years [...] on filedocumented in this encounter Care Teams Director Of Infection Prevention Relationship Specialty Start Date End Date Charlene Delgado MD [address] [place] [phone] PCP - General Family Medicine 01/25/19 documented as of this encounter
--- OUTSIDE RECORDS SUMMARY | 2024-07-16 12:33 | XMS_ITS | Encounter Summary ---
Author Organization [employer] Address [address] [facility] [facility] [address]t [place] [address] Care Team Providers Care Grocery Clerk Selling Name Role Phone Charlene Delgado MD Primary Care Provider + Reason for Visit * Reason Comments Med Refill Encounter Details Date Type Department Care Team ([facility] Contact Info) Description 12/29/2022 Refill [facility] MEDICINE 230 [place], [place] [phone] Charlene Delgado MD 230 [place], [place] [phone] Coronary artery disease of [place] artery of [place] heart with stable angina pectoris (CMS/HCC) Social [...] Visit Diagnoses Diagnosis Coronary artery disease of [place] artery of [place] heart with stable angina pectoris (CMS/HCC) documented in this encounter Care Teams Grocery Clerk Selling Relationship Specialty Start Date End Date Charlene Delgado MD [address] [place] [phone] PCP - General Family Medicine 01/25/19 documented as of this encounter
--- OUTSIDE RECORDS SUMMARY | 2024-07-16 12:33 | XMS_ITS | Encounter Summary ---
Author Organization [employer] Address [address] [facility] [address] 7t [place] [address] Care Team Providers Care Remote Broadcast Engineer Name Role Phone Charlene Delgado MD Primary Care Provider + Encounter Details Date Type Department Care Team (Late st Contact Info) Description 04/21/2022 Orders Only [facility] MED & PEDS [address] [place] [address] Gabriela Hunt LPN Social History Tobacco Use [...] on filedocumented in this encounter Care Teams Remote Broadcast Engineer Relationship Specialty Start Date End Date Charlene Delgado MD [address] [place] [phone] PCP - General Family Medicine 01/25/19 documented as of this encounter
--- OUTSIDE RECORDS SUMMARY | 2024-07-16 12:33 | XMS_ITS | Encounter Summary ---
Author Organization [employer] Address [address] [facility] 7t [place] [address] Care Team Providers Care Ballpoint Pen Cartridge Tester Name Role Phone Charlene Delgado MD Primary Care Provider + Encounter Details Date Type Department Care Team ([facility] st Contact Info) Description 12/31/2022 Abstract [facility] MEDICINE [address] [place], [place] [phone] Charlene Delgado MD [address] [place], [place] [phone] Social History Tobacco Use Types Packs/Day Years [...] on filedocumented in this encounter Care Teams Ballpoint Pen Cartridge Tester Relationship Specialty Start Date End Date Charlene Delgado MD [address] [place] [phone] PCP - General Family Medicine 01/25/19 documented as of this encounter
--- OUTSIDE RECORDS SUMMARY | 2024-07-16 12:33 | XMS_ITS | Encounter Summary ---
Author Organization [email or web address] Address [address] [facility] 7t [place] [address] Care Team Providers Care Labor Standards Director Name Role Phone Charlene Delgado MD Primary Care Provider + Reason for Visit * Reason Onset Date Comments Reschedule 07/19/2023 Encounter Details Date Type Department Care Team ([facility] Contact Info) Description 07/19/2023 Telephone [facility] MEDICINE 230 [place], [place] [phone] Charlene Delgado MD 230 [place], [place] [phone] Reschedule Social History Tobacco Use Types Packs/Day [...] documented as of this encounter Care Teams Labor Standards Director Relationship Specialty Start Date End Date Charlene Delgado MD [address] [place] [phone] PCP - General Family Medicine 01/25/19 documented as of this encounter
--- OUTSIDE RECORDS SUMMARY | 2024-07-16 12:33 | XMS_ITS | Encounter Summary ---
Author Organization [employer] Address [address] [address] 7[address] [place] [address] Care Team Providers Care Power Electronics Engineer Name Role Phone Charlene Delgado MD Primary Care Provider + Encounter Details Date Type Department Care Team ([facility] st Contact Info) Description 12/31/2022 Abstract [facility] MEDICINE [address] [place], [place] [phone] Charlene Delgado MD 230 [place], [place] [phone] Social History Tobacco Use Types Packs/Day Years [...] on filedocumented in this encounter Care Teams Power Electronics Engineer Relationship Specialty Start Date End Date Charlene Delgado MD [address] [place] [phone] PCP - General Family Medicine 01/25/19 documented as of this encounter
--- OUTSIDE RECORDS SUMMARY | 2024-07-16 12:33 | XMS_ITS | Encounter Summary ---
Author Organization [email or web address] Address [address] [facility] 7t [place] [address] Care Team Providers Care Fitness Plan Coordinator Name Role Phone Charlene Delgado MD Primary Care Provider + Encounter Details Date Type Department Care Team (Late st Contact Info) Description 07/07/2022 Orders Only [facility] PED[facility] [address] [place] [address] Gabriela Hunt LPN Social History Tobacco Use [...] on filedocumented in this encounter Care Teams Fitness Plan Coordinator Relationship Specialty Start Date End Date Charlene Delgado MD [address] [place] [phone] PCP - General Family Medicine 01/25/19 documented as of this encounter
--- OUTSIDE RECORDS SUMMARY | 2024-07-16 12:33 | XMS_ITS | Encounter Summary ---
Author Organization [employer] Address [address] 7t [place] [address] Care Team Providers Care Utility Pipe Layer Name Role Phone Charlene Delgado MD Primary Care Provider + Encounter Details Date Type Department Care Team (Late st Contact Info) Description 06/17/2022 Orders Only [facility] MED & PEDS 505 [place] [address] Gabriela Hunt LPN Social History Tobacco Use [...] on filedocumented in this encounter Care Teams Utility Pipe Layer Relationship Specialty Start Date End Date Charlene Delgado MD [address] [place] [address] PCP - General Family Medicine 01/25/19 documented as of this encounter
--- OUTSIDE RECORDS SUMMARY | 2024-07-16 12:33 | XMS_ITS | Encounter Summary ---
Author Organization [employer] Address [address] [facility] 7t [place] [address] Care Team Providers Care Acid Loader Name Role Phone Charlene Delgado MD Primary Care Provider + Encounter Details Date Type Department Care Team (Late st Contact Info) Description 10/12/2022 Orders Only [facility] MED & PEDS [address] [place] [address] Gabriela Hunt LPN Social History Tobacco Use [...] on filedocumented in this encounter Care Teams Acid Loader Relationship Specialty Start Date End Date Charlene Delgado MD [address] [place] [phone] PCP - General Family Medicine 01/25/19 documented as of this encounter
--- OUTSIDE RECORDS SUMMARY | 2024-07-16 12:33 | XMS_ITS | Clinical Summary ---
Author Organization [facility] Address [address] [place] [address] Phone Care Team Providers Care Mainspring Barrel Assembly Cleaner Name Role Phone Charlene Delgado MD Primary Care Provider +[phone] Allergies No known active allergies Medications pioglitazone [...] in 6 wks Reschedule missed renetta with sales center manager Woo Pedraza and obtain labs I had [...] patient's age to complete this topic Insurance [facility] MCR ([id number]) [facility] ([id number]) JACOB CHANEY [id number] Care Teams Mainspring Barrel Assembly Cleaner Relationship Specialty Start Date End Date Charlene Delgado MD [address] [place] [phone] PCP - General 03/17/20
--- OUTSIDE RECORDS SUMMARY | 2024-07-16 12:33 | XMS_ITS | Encounter Summary ---
Author Organization [employer] Address [address] [facility] 7t [place] [address] Care Team Providers Care Textile Machine Operator Name Role Phone Charlene Delgado MD Primary Care Provider + Encounter Details Date Type Department Care Team ([facility] st Contact Info) Description 03/23/2022 Orders Only [facility] MEDICINE 230 [place], [place] [phone] Aimee Vogel LPN Social History Tobacco Use [...] on filedocumented in this encounter Care Teams Textile Machine Operator Relationship Specialty Start Date End Date Charlene Delgado MD 230 [place] [address] PCP - General Family Medicine 01/25/19 documented as of this encounter
[2024-07-16 12:57] LABS: Appearance Urine Clear; Color Urine Yellow; Glucose Urine UA 250 mg/dL (Negative); Leukocyte Esterase Urine Small (1+) (Negative); Nitrite Urine Negative (Negative); UMIC TRIGGER UA YES; Urine Blood Trace (Negative); Urine Ketones Negative (Negative); Urine Protein 100 (2+) mg/dL (Neg-Trace)
[2024-07-16 12:59] LABS: Hematocrit 36.9 % (42.0-52.0); Hemoglobin 11.9 g/dl (14.0-18.0); Mean Corpuscular HGB Conc 32.2 g/dl (31.0-36.0); Mean Corpuscular Hemoglobin 31.5 pg (27.0-33.0); Mean Corpuscular Volume 97.6 fL (80.0-98.0); Mean Platelet Volume 11.5 fL (9.4-12.4); Platelet Count 155 X10*3/uL (160-400); Red Blood Count 3.78 X10*6/uL (4.60-5.80); Red Cell Distribution Width 13.5 % (11.0-16.0); White Blood Count 6.8 X10*3/uL (4.8-10.8)
[2024-07-16 13:00] LABS: Bacteria Urine None Seen (None Seen); Hyaline Casts Urine 0-2 /LPF (0-2); RBC Urine 0-2 /HPF (0-2); Squamous Epithelial Cell Urine 0-2 /HPF (0-2)
[2024-07-16 14:09] LABS: Total Protein Urine Random 46 mg/dL (<12)
[2024-07-16 14:17] LABS: Parathyroid Hormone Intact 114.8 pg/mL (8.7-77.1)
[2024-07-16 14:39] LABS: Alanine Aminotransferase 20 U/L (0-40); Albumin Level 3.8 g/dL (3.5-5.0); Alkaline Phosphatase 89 U/L (39-117); Anion Gap 11 (12-20); Aspartate Amino Transferase 37 U/L (5-37); Bilirubin Total 0.5 mg/dL (0.0-1.0); Blood Urea Nitrogen 41 mg/dL (9-16); Carbon Dioxide 24 mmol/L (22-29); Chloride 108 mmol/L (96-108); Estimated Glomerular Filt Rate 28; Glucose Random 129 mg/dL (60-115); Sodium 138 mmol/L (135-145); Total Protein 6.8 g/dL (6.5-8.0)
== END 2024-07-16 11:03 | disposition home or self-care (01) ==
LOC: HO.10HDL 11:02
PROVIDERS: PCP Internal Medicine; Visit Provider Internal Medicine Hypertension Specialist
DX: N20.0 Calculus of kidney (principal); N18.9 Chronic kidney disease, unspecified
CPT/HCPCS: 36415; 80053; 81001; 82570; 83970; 84156; 84520; 85027; 99212

== ENCOUNTER → 2024-09-13 09:31 | Outpatient (REF) | payer OTHER, SELFPAY ==
--- NOTE | ~2024-09-13 | NM_ITS ---
EXAMINATION: NM KIDNEY FLOW FUNCTION WITH RX HISTORY: N13.30 - Unspecified hydronephrosis. TECHNIQUE: A renogram and renal scan were performed following the intravenous administration of 10 mCi technetium 99m-DTPA. The patient received 36 mg IV Lasix approximately 30 minutes after injection of the radiopharmaceutical. COMPARISON: Correlation is made with a renal ultrasound dated 09/05/[address] of the abdomen without contrast dated 10/06/2022. FINDINGS: There is decreased blood flow to the left kidney which also appears smaller than the right. The right kidney demonstrates normal blood flow. The split function is approximately 73% on the right and 27% on the left. The right kidney demonstrates a normal activity peak, with accumulation of activity in the renal pelvis and subsequent washout. The left kidney demonstrates decreased function with some accumulation of activity within the renal pelvis and ureter. There is poor washout during the course of the examination. NM/NM renal flow w pharm int IMPRESSION: 1. Normally functioning right kidney. 2. Small left kidney with decreased blood flow and decreased function with poor washout. There is activity within the left ureter indicating lack of obstruction. Electronically signed by: Osorio Ellis MD 09/13/2024 12:41 PM EDT
--- OUTSIDE RECORDS SUMMARY | 2024-09-13 09:59 | XMS_ITS | Encounter Summary ---
Author Organization [employer] Address [address] [facility] 7 [place] [address] Care Team Providers Care Geology Scientist Name Role Phone Charlene Delgado MD Primary Care Provider + Reason for Visit * Reason Onset Date Comments Reschedule 07/19/2023 Encounter Details Date Type Department Care Team ([facility] st Contact Info) Description 07/19/2023 Telephone [facility] MEDICINE 230 [place], [place] [phone] Charlene Delgado MD 230 [place], [place] [phone] Reschedule Social History Tobacco Use Types Packs/Day [...] documented as of this encounter Care Teams Geology Scientist Relationship Specialty Start Date End Date Charlene Delgado MD [address] [place] [phone] PCP - General Family Medicine 01/25/19 documented as of this encounter
--- OUTSIDE RECORDS SUMMARY | 2024-09-13 09:59 | XMS_ITS | Clinical Summary ---
Author Organization [facility] Address [address] [place] [address] Phone Care Team Providers Care Customer Service Advocate Name Role Phone Charlene Delgado MD Primary Care Provider [phone] Allergies No known active allergies Medications pioglitazone [...] in 6 wks Reschedule missed renetta with critical power install technician Woo Pedraza and obtain labs I had [...] Vaccine: 50+ Years (3 of 3 - PCV20 or PCV21) 01/27/2015 12/02/2014, 12/04/2008 Diabetes: Ophthalmology Exam 04/07/2020 Diabetes: Pedal Pulse Checked 04/07/2020 Diabetes: Sensory Foot Exam 04/07/2020 Diabetes: Visual Foot Exam 04/07/2020 Diabetes: Hemoglobin A1C 04/15/2023 01/13/2023 Influenza Vaccine (#1) 2024 0, 03/21/2018, 12/02/2014 Pneumococcal Vaccine: Peds ( 0 to 5 Years) and At-Risk Patients (6 to 49 Years) Discontinued 12/02/2014, 12/04/2008 Hepatitis B Vaccine Aged Out No longe r eligible based on patient's age to complete this topic Insurance [facility] MCR ([id number]) [facility] MCR ([id number]) JACOB CHANEY [phone] Care Teams Customer Service Advocate Relationship Specialty Start Date End Date Charlene Delgado MD [address] [place] [phone] PCP - General 03/17/20
== END ==
LOC: HO.NUCMED 09:31
PROVIDERS: PCP Internal Medicine; Visit Provider Nurse Practitioner Family
DX: N13.30 Unspecified hydronephrosis (principal)
CPT/HCPCS: 78708; A9539; J1938

== ENCOUNTER → 2024-09-13 09:32 | Outpatient (BNV) | payer OTHER, SELFPAY | PROVIDERS: PCP Internal Medicine; Visit Provider Radiology Diagnostic Radiology | DX: N13.30 Unspecified hydronephrosis (principal) | CPT/HCPCS: 78708 ==

== ENCOUNTER 2024-11-26 09:34 | Outpatient (REF) | payer OTHER, SELFPAY | END 2024-11-26 09:35 | disposition home or self-care (01) | LOC: HO.LAB 09:34 | PROVIDERS: PCP Internal Medicine; Visit Provider Nurse Practitioner Family | DX: N40.1 Benign prostatic hyperplasia with lower urinary tract symptoms (principal); R39.15 Urgency of urination; N13.30 Unspecified hydronephrosis; R31.9 Hematuria, unspecified; I12.9 Hypertensive chronic kidney disease with stage 1 through stage 4 chronic kidney disease, or unspecified chronic kidney disease; N18.9 Chronic kidney disease, unspecified; Z79.899 Other long term (current) drug therapy | CPT/HCPCS: 51798; 81003; 99212 ==

== ENCOUNTER 2024-11-26 09:34 | Outpatient (AMB) | payer OTHER, SELFPAY ==
--- NOTE | 2024-11-26 09:35 | A.OFFVIS_ITS ---
Intake Visit Reasons: nuclear scan f/u Intake Note: patient presents today for: follow up US urology medications: none blood thinners: apixaban today's PVR: 36 mls Molded Rubber Goods Cutter Required: Yes Molded Rubber Goods Cutter Services: Molded Rubber Goods Cutter Present Molded Rubber Goods Cutter Name: Shea [id number] Accompanied by: Spouse Allergies [email or web address] (From Jardelmerance) Adverse Reaction (Intermediate, Verified 11/26/24 10:07) reccurent UTI, hypoglycemia Medication List - Last Reconciled 11/26/24 by YURIDIA Bourne- apixaban (Eliquis) 5 mg PO BID atorvastatin 1 tab PO BEDTIME dulaglutide (Trulicity) mg subcut QWEEK insulin glargine (Lantus Solostar U-100 Insulin) units subcut isosorbide mononitrate ER 60 mg PO DAILY metoprolol succinate ER 50 mg PO DAILY pen needle, diabetic (UltiCare Pen Needle) As directed pioglitazone 1 tab PO DAILY HPI Comments Details: Matthew is a very pleasant Ecuadorean-speaking 79-year-old male patient of Dr. Delgado who was accompanied by his daughter at today's visit. He has a past medical history of diabetes, AFib, chronic renal failure stage 4, hypercholesteremia, and hypertension. He presents to the office today for follow-up of his hydronephrosis, bladder wall thickening, and bladder outlet obstruction. Recent nuclear renal imaging results were reviewed with the patient and his daughter today 09/28 there is a decreased blood flow to the left kidney which also appears smaller than the right. The right kidney demonstrates normal blood flow. The split function is a proximally 73% on the right and 27% on the left. Normal functioning right kidney. Small left kidney with decreased blood flow and decreased function with poor washout. There is activity within the left ureter indicating lack of absorption. Patient and daughter report they have recently followed up with Nephrology. In office urinalysis results reviewed with the patient today. We discussed further treatment options to include cystoscopy with retrograde and stent placement on left side with repeat Lasix renogram versus surveillance monitoring. We discussed obtaining BUN and creatinine as planned as well as PSA for surveillance monitoring. When asked he denies any bothersome urinary issues. PVR 46 mL. When asked he denies urinary urgency, urinary frequency, incontinence, nocturia, gross/ visible hematuria, dysuria, foul smelling urine, changes to urinary stream, flank pain, fever, and or chills. He is happy with his current voiding parameters. Labs remain pending. Discussed further workup of mild left-sided hydronephrosis. Discussed importance of following up as recommended. He otherwise offers no other issues or concerns at this time. Labs are as follows: BUN: 04/28 53, 04/28 25, 10/26 37, 11/26 41, 08/27 48, 10/27 46 10/27 30, 01/27 41, 05/28 50, 09/27 35, 09/27 35, 11/28 46, 03/31 45, 07/29 41 Creatinine: 04/28 1.89, 10/26 2.32, 11/26 2.11, 11/26 2.31, 08/27 2.76, 10/27 2.90, 2.76, 10/27 3.21, 10/27 2.11, 01/27 2.26, 05/28 2.75, 09/27 2.50, 11/28 2.66, 03/31 2.90, 07/29 2.25 [facility] Medical History Ureteral stent present Chronic renal failure, stage 4 (severe) PAF (paroxysmal atrial fibrillation) Glucosuria A-fib Hypertension High cholesterol Diabetes 1.5, managed as type 2 Surgical History No pertinent past surgical history Family History Other No family history of coronary artery disease Social History Household Members: Family Housing: House Do you presently have visiting nurse or other home services: Yes Alcohol intake: never Comment: May change due to airborne precautions Patient Tobacco Use Status: Never used Tobacco e-Cigarette/Vaping Use: Never Used Advance Directives Date on File: 04/29/21 service: No Current occupational status: retired Review of Systems Const Reports as per HPI Eyes Reports no additional complaints ENT Reports no additional complaints Card Reports as per HPI Resp Reports no additional complaints GI Reports as per HPI Reports as per HPI Musc Reports no additional complaints Neuro Reports as per HPI Psych Reports no additional complaints Endo Reports as per HPI Bennie/Lymph Reports no additional complaints Aller/Immun Reports no additional complaints Physical Exam Const General: cooperative, healthy appearing, comfortable, no acute distress, well developed, alert and awake Orientation/consciousness: patient oriented x3 Limitations: language barrier HEENT Head: Yes normal to inspection, Yes normocephalic and Yes atraumatic Ears: hearing grossly normal bilaterally Eyes General: appearance normal, both eyes and all related structures Neck Neck: Yes normal visual inspection and Yes trachea midline Chest Chest palpation & inspection: normal inspection of the chest Resp Effort & Inspection: normal respiratory effort and able to speak in complete sentences Cardio Rate: regular rate GI Inspection: Yes normal to inspection General: Yes no CVA tenderness Back/Spine/Pelvis Back: no CVA tenderness Skin General skin exam: no rashes or lesions noted Neuro General: patient oriented x3 Extrem General: Yes normal to inspection Psych Appearance: grossly normal and well kempt Mental Status: mental status grossly normal Speech and movement: Normal speech and movement present and Clear speech present Affect: normal affect Attitude: cooperative Thought process: Normal thought process present Thought content: Normal thought content present Insight: Fair insight present (Psych) Judgement: Fair judgement present (Psych) Office Procedures Post Void Residual Post Residual Void Post Void Residual (PVR): 36 25167-Vims Void Residual by ultrasound Results AMB Urinalysis, Automated UA Leukoctes 125 Ana/uL Last Edit by AUGUSTO Gaytan on 11/26/24 09:53 UA Nitrite Negative Last Edit by AUGUSTO Gaytan on 11/26/24 09:53 UA Urobilinogen 3.5 mg/dL Last Edit by AUGUSTO Gaytan on 11/26/24 09:5 3 UA Protein 3 mg/dL Last Edit by AUGUSTO Gaytan on 11/26/24 09:53 UA pH 6.0 Last Edit by AUGUSTO Gaytan on 11/26/24 09:53 UA Blood 80 David/uL Last Edit by AUGUSTO Gaytan on 11/26/24 09:53 UA Specific [place] 1.015 Last Edit by AUGUSTO Gaytan on 11/26/24 09: 53 UA Ketone Last Edit by AUGUSTO Gaytan on 11/26/24 09:53 UA Bilirubin 0 mg/dL Last Edit by AUGUSTO Gaytan on 11/26/24 09:53 UA Glucose 15 mg/dL Last Edit by AUGUSTO Gaytan on 11/26/24 09:53 Results Reviewed Results Reviewed: Laboratory Last Values Urine pH (Auto) 6.0 11/26/24 09:52 Specific [place] (Auto) 1.015 11/26/24 09:52 Urine Protein (Auto) 3 mg/dL 11/26/24 09:52 Glucose (UA)(Auto) 15 mg/dL 11/26/24 09:52 Urine Blood (Auto) 80 David/uL 11/26/24 09:52 Urine Nitrite (Auto) Negative 11/26/24 09:52 Urine Bilirubin (Auto) 0 mg/dL 11/26/24 09:52 Urine Urobilinogen (Auto) 3.5 mg/dL 11/26/24 09:52 Leukocyte Esterase (Auto) 125 Ana/uL 11/26/24 09:52 Date of Service: 09/13/24 Procedure(s): NM renal flow w pharm int FINDINGS: There is decreased blood flow to the left kidney which also appears smaller than the right. The right kidney demonstrates normal blood flow. The split function is approximately 73% on the right and 27% on the left. The right kidney demonstrates a normal activity peak, with accumulation of activity in the renal pelvis and subsequent washout. The left kidney demonstrates decreased function with some accumulation of activity within the renal pelvis and ureter. There is poor washout during the course of the examination. IMPRESSION: 1. Normally functioning right kidney. 2. Small left kidney with decreased blood flow and decreased function with poor washout. There is activity within the left ureter indicating lack of obstruction. Assessment & Plan Assessment & Plan (1) Hydronephrosis: Code(s): N13.30 - Unspecified hydronephrosis Category: Medical (2) Nephrolithiasis: Code(s): N20.0 - Calculus of kidney Category: Medical (3) Enlarged prostate: Code(s): N40.0 - Benign prostatic hyperplasia without lower urinary tract symptoms Category: Medical Plan In office urinalysis results reviewed with the patient today; as noted above; will send for urine cytology. PVR 36 mL. Recent nuclear renal scan results reviewed with the patient today; as noted above. We discussed importance of obtaining labs as ordered as well as maintaining follow-up appointments He currently denies any bothersome urinary issues or concerns. He reports be happy with current voiding parameters. All questions were answered We discussed further interventions of hydronephrosis to include cystoscopy with retrograde in left-sided stent placement for surveillance monitoring; risks and benefits of these interventions were discussed. Will obtain BUN, creatinine, and PSA. Follow-up in 2-4 weeks with labs to be completed prior; or sooner with any issues, concerns, and or questions. Orders: Orders Complete Blood Count no Diff Today N18.9 - Chronic kidney disease, unspecified Blood Urea Nitrogen Today R39.15 - Urgency of urination Urine Cytology Today R31.9 - Hematuria, unspecified AMB Post Void Residual by ultrasound Today R30.0 - Dysuria AMB Urinalysis Automated Today Z13.9 - Encounter for screening, unspecified Creatinine Today R39.15 - Urgency of urination Prostate Specific Antigen Today N40.0 - Benign prostatic hyperplasia without lower urinary tract symptoms Patient Instructions: The patient had an opportunity to ask questions regarding the treatment plan. All questions were answered. Physical exam, labs, and imaging were discussed and reviewed in detail. As well as risks, benefits, and discussion of treatment choices. No major barriers to understanding were identified. The patient expressed understanding and agreement with the above treatment plan. The patient was made aware they should contact our office by phone for worsening of their current condition, the appearance of new symptoms, or with any questions or concerns. Compliance is encouraged with any medications and follow up testing that is ordered. It is a privilege to be allowed the opportunity to participate in? your urological care.? Again, if you have any questions or concerns If you have any questions or concerns please do not hesitate to contact me. The office is [phone]. This note is constructed using voice recognition software. While every effort has been made to ensure accuracy institute scientist errors may have been included. Yours sincerely, YASMIN Bourne Coding Level of Care Code Est Pt Level 3 (65977) Complex EM visit Add On G2211 Diagnoses Hydronephrosis N13.30 Nephrolithiasis N20.0 Enlarged prostate N40.0 CPT Codes Post Residual Void - PVR CPT Code: 44851-[id number] Void Residual by ultrasound ([id number])
--- OUTSIDE RECORDS SUMMARY | 2024-11-26 11:16 | XMS_ITS | Encounter Summary ---
Author Organization [employer] Address [address] [facility] 7t [place] [address] Care Team Providers Care Network Engineer Administrator Name Role Phone Charlene Delgado MD Primary Care Provider + Encounter Details Date Type Department Care Team (Late st Contact Info) Description 10/12/2022 Orders Only [facility] MED & PEDS [address] [place] [address] Gabriela Hunt LPN Social History Tobacco Use [...] on filedocumented in this encounter Care Teams Network Engineer Administrator Relationship Specialty Start Date End Date Charlene Delgado MD [address] [place] [phone] PCP - General Family Medicine 01/25/19 documented as of this encounter
--- OUTSIDE RECORDS SUMMARY | 2024-11-26 11:16 | XMS_ITS | Encounter Summary ---
Author Organization [employer] Address [address] [facility] 7t [place] [address] Care Team Providers Care Wire Worker Name Role Phone Charlene Delgado MD Primary Care Provider + Reason for Visit * Reason Comments Med Refill Encounter Details Date Type Department Care Team ([facility] st Contact Info) Description 11/20/2024 Refill [facility] MEDICINE [address] [place], [place] [phone] Charlene Delgado MD 230 [place] [address] Gastroesophageal reflux disease, unspecified whether esophagitis present Social History Tobacco Use Types Packs/Day Years [...] as of this encounter Visit Diagnoses Diagnosis Gastroesophageal reflux disease, unspecified whether esophagitis present documented in this encounter Additional Health Concerns Assessment Noted Time PHQ-9 Depression Total Score: 0 05/26/19 24 11:47 AM EDT documented as of this encounter Care Teams Wire Worker Relationship Specialty Start Date End Date Charlene Delgado MD [address] [place] [phone] PCP - General Family Medicine 01/25/19 documented as of this encounter
--- OUTSIDE RECORDS SUMMARY | 2024-11-26 11:16 | XMS_ITS | Encounter Summary ---
Author Organization [employer] Address 75 [facility] 7t [place] [address] Care Team Providers Care Cell Attendant Name Role Phone Charlene Delgado MD Primary Care Provider + Reason for Visit * Reason Comments Med Refill Encounter Details Date Type Department Care Team ([facility] st Contact Info) Description 04/12/2023 Refill [facility] MEDICINE [address] [place], [place] [phone] Charlene Delgado MD [address] [place], [place] [phone] Diabetes mellitus type 2, insulin dependent (CMS/HCC) [...] Diagnosis Diabetes mellitus type 2, insulin dependent (CMS/HCC) documented in this encounter Care Teams Cell Attendant Relationship Specialty Start Date End Date Charlene Delgado MD [address] [place] [phone] PCP - General Family Medicine 01/25/19 documented as of this encounter
--- OUTSIDE RECORDS SUMMARY | 2024-11-26 11:16 | XMS_ITS | Encounter Summary ---
Author Organization [employer] Address 75 [facility] 7t [place] [address] Care Team Providers Care Sap Enterprise Portal Consultant Name Role Phone Charlene Delgado MD Primary Care Provider + Encounter Details Date Type Department Care Team (Late st Contact Info) Description 03/23/2022 Orders Only [facility] CHC MED & PEDS [address] [place] [address] Gabriela Hunt LPN Social History Tobacco Use [...] on filedocumented in this encounter Care Teams S[employer] Enterprise Portal Consultant Relationship Specialty Start Date End Date Charlene Delgado MD [address] [place] [phone] PCP - General Family Medicine 01/25/19 documented as of this encounter
--- OUTSIDE RECORDS SUMMARY | 2024-11-26 11:16 | XMS_ITS | Encounter Summary ---
Author Organization [employer] Address 75 [facility] 7t [place] [address] Care Team Providers Care Cloth Shrinking Tester Name Role Phone Charlene Delgado MD Primary Care Provider + Encounter Details Date Type Department Care Team ([facility] st Contact Info) Description 12/31/2022 Abstract [facility]INE 230 [place], [place] [phone] Charlene Delgado MD 230 [place], [place] [phone] Social History Tobacco Use Types Packs/Day Years [...] on filedocumented in this encounter Care Teams Cloth Shrinking Tester Relationship Specialty Start Date End Date Charlene Delgado MD [address] [place] [phone] PCP - General Family Medicine 01/25/19 documented as of this encounter
--- OUTSIDE RECORDS SUMMARY | 2024-11-26 11:16 | XMS_ITS | Encounter Summary ---
Author Organization [employer] Address 75 [facility] 7t [place] [address] Care Team Providers Care Meat Hanger Name Role Phone Charlene Delgado MD Primary Care Provider + Encounter Details Date Type Department Care Team ([facility] st Contact Info) Description 03/23/2022 Orders Only [facility] MEDICINE 230 [place], [place] [phone] Aimee Vogel LPN Social History Tobacco Use [...] on filedocumented in this encounter Care Teams Meat Hanger Relationship Specialty Start Date End Date Charlene Delgado MD 230 [place] [address] PCP - General Family Medicine 01/25/19 documented as of this encounter
--- OUTSIDE RECORDS SUMMARY | 2024-11-26 11:16 | XMS_ITS | Encounter Summary ---
Author Organization [employer] Address 75 [facility] 7t [place] [address] Care Team Providers Care Group Rooms Coordinator Name Role Phone Charlene Delgado MD Primary Care Provider + Encounter Details Date Type Department Care Team (Late st Contact Info) Description 06/17/2022 Orders Only [facility] CHC MED & PEDS 505 [place] [address] Gabriela Hunt LPN Social History Tobacco Use [...] on filedocumented in this encounter Care Teams Group Rooms Coordinator Relationship Specialty Start Date End Date Charlene Delgado MD [address] [place] [phone] PCP - General Family Medicine 01/25/19 documented as of this encounter
--- OUTSIDE RECORDS SUMMARY | 2024-11-26 11:16 | XMS_ITS | Encounter Summary ---
Author Organization [employer] Address 75 [facility] 7t [place] [address] Care Team Providers Care Adoption Social Worker Name Role Phone Charlene Delgado MD Primary Care Provider + Encounter Details Date Type Department Care Team (Late st Contact Info) Description 05/20/2022 Orders Only [facility] CHC MED & PEDS 505 [place] [address] Gabriela Hunt LPN Social History Tobacco Use [...] on filedocumented in this encounter Care Teams Adoption Social Worker Relationship Specialty Start Date End Date Charlene Delgado MD [address] [place] [phone] PCP - General Family Medicine 01/25/19 documented as of this encounter
--- OUTSIDE RECORDS SUMMARY | 2024-11-26 11:16 | XMS_ITS | Encounter Summary ---
Author Organization [employer] Address 75 [facility] 7t [place] [address] Care Team Providers Care Ruby Software Developer Name Role Phone Charlene Delgado MD Primary Care Provider + Reason for Visit * Reason Comments Med Refill Encounter Details Date Type Department Care Team ([facility] st Contact Info) Description 12/29/2022 Refill [facility] MEDICINE 230 [place], [place] [phone] Charlene Delgado MD [address] [place], [place] [phone] Coronary artery disease of [place] artery of [place] heart with stable angina pectoris (CMS/HCC) Social [...] Visit Diagnoses Diagnosis Coronary artery disease of [place] artery of [place] heart with stable angina pectoris (CMS/HCC) documented in this encounter Care Teams Ruby Software Developer Relationship Specialty Start Date End Date Charlene Delgado MD [address] [place] [address] PCP - General Family Medicine 01/25/19 documented as of this encounter
--- OUTSIDE RECORDS SUMMARY | 2024-11-26 11:16 | XMS_ITS | Clinical Summary ---
Author Organization [facility] Address [address] [place] [address] Phone Care Team Providers Care Community Affairs Director Name Role Phone Charlene Delgado MD Primary Care Provider [phone] Allergies No known active allergies Medications pioglitazone [...] in 6 wks Reschedule missed renetta with power generation equipment repairer Woo Pedraza and obtain labs I had [...] patient's age to complete this topic Insurance [facility] MCR ([id number]) [facility] MCR ([id number]) JACOB CHANEY [id number] Care Teams Community Affairs Director Relationship Specialty Start Date End Date Charlene Delgado MD [address] [place] [phone] PCP - General 03/17/20
--- OUTSIDE RECORDS SUMMARY | 2024-11-26 11:16 | XMS_ITS | Encounter Summary ---
Author Organization [employer] Address 75 [facility] 7 [place] [address] Care Team Providers Care Certified Hand Therapist Name Role Phone Charlene Delgado MD Primary Care Provider + Reason for Visit * Reason Onset Date Comments Reschedule 07/19/2023 Encounter Details Date Type Department Care Team ([facility] st Contact Info) Description 07/19/2023 Telephone [facility] MEDICINE 230 [place], [place] [phone] Charlene Delgado MD 230 [place], [place] [phone] Reschedule Social History Tobacco Use Types Packs/Day [...] documented as of this encounter Care Teams Certified Hand Therapist Relationship Specialty Start Date End Date Charlene Delgado MD [address] [place] [phone] PCP - General Family Medicine 01/25/19 documented as of this encounter
--- OUTSIDE RECORDS SUMMARY | 2024-11-26 11:16 | XMS_ITS | Encounter Summary ---
Author Organization [employer] Address 75 [facility] 7t [place] [address] Care Team Providers Care Liquid Hydrogen Plant Operator Name Role Phone Charlene Delgado MD Primary Care Provider + Encounter Details Date Type Department Care Team ([facility] st Contact Info) Description 12/31/2022 Abstract [facility] MEDICINE 230 [place], [place] [phone] Charlene Delgado MD 230 [place], [place] [phone] Social History Tobacco Use Types Packs/Day Years [...] on filedocumented in this encounter Care Teams Liquid Hydrogen Plant Operator Relationship Specialty Start Date End Date Charlene Delgado MD [address] [place] [phone] PCP - General Family Medicine 01/25/19 documented as of this encounter
--- OUTSIDE RECORDS SUMMARY | 2024-11-26 11:16 | XMS_ITS | Encounter Summary ---
Author Organization [employer] Address 75 [facility] 7t [place] [address] Care Team Providers Care Yarn Handler Name Role Phone Charlene Delgado MD Primary Care Provider + Encounter Details Date Type Department Care Team ([facility] st Contact Info) Description 12/31/2022 Abstract [facility] MEDICINE 230 [place], [place] [phone] Charlene Delgado MD 230 [place], [place] [phone] Social History Tobacco Use Types Packs/Day Years [...] on filedocumented in this encounter Care Teams Yarn Handler Relationship Specialty Start Date End Date Charlene Delgado MD [address] [place] [phone] PCP - General Family Medicine 01/25/19 documented as of this encounter
--- OUTSIDE RECORDS SUMMARY | 2024-11-26 11:16 | XMS_ITS | Encounter Summary ---
Author Organization [employer] Address 75 [facility] 7t [place] [address] Care Team Providers Care Neurosurgeon Name Role Phone Charlene Delgado MD Primary Care Provider + Encounter Details Date Type Department Care Team (Late st Contact Info) Description 07/07/2022 Orders Only [facility] CHC MED & PEDS 505 [place] [address] Gabriela Hunt LPN Social History Tobacco Use [...] on filedocumented in this encounter Care Teams Neurosurgeon Relationship Specialty Start Date End Date Charlene Delgado MD [address] [place] [phone] PCP - General Family Medicine 01/25/19 documented as of this encounter
--- OUTSIDE RECORDS SUMMARY | 2024-11-26 11:16 | XMS_ITS | Clinical Summary ---
Author Organization [employer] Address 75 [facility] 7t [place] [address] Care Team Providers Care Material Specialist Name Role Phone Stephani Talbot MD Primary Care Provider + Allergies Active Allergy Reactions Criticality Noted Date Comments Empagliflozin High 10/07/2022 Other reaction(s): reccurent UTI, hypoglycemia Medications TRUEplus Lancets 33G misc USE FOUR TIMES DAILY DIRECTED 200 each 5 10/13/19 23 Active metoprolol succinate XL (Toprol-XL) 50 MG 24 hr tablet 10/13/19 23 Active pioglitazone (Actos) 45 MG tablet 10/13/19 23 Active glucose blood test strip Test blood sugar 3 times daily Active insulin glargine (Lantus SoloStar) 100 UNIT/ML penIndications :Type 2 diabetes mellitus with hyperglycemia, with long-term current use of insulin (CMS/[facility]) Inject 15 Units under the skin at bedtime. 13.5 mL 3 11/09/19 24 Active Dulaglutide 3 MG/0.5ML solution auto-injectorI ndications:Dahlia betes mellitus type 2, insulin dependent (CMS/[facility]) Inject 0.5 mL (3 mg) under the skin 1 (one) time per week. 2 mL 11 01/11/20 24 025 Active insulin lispro (HumaLOG KWIKPEN) 100 UNIT/ML injection Use subcutaneous tid AC meals prn sliding scale: 150-200: 2u/ 201-250= 4u/251-300= 6u/ 301-350= 8u/351-400=10u/ above 400= 12u and call PCP 1 each 3 03/19/19 25 Active Continuous Glucose Ed Manager (FreeStyle Damaris 3 [place]) deviceIndicati ons:Type 2 diabetes mellitus with hyperglycemia, with long-term current use of insulin ([facility]) 1 each 3 times daily. Use as directed for CGM 1 each 06/30/19 25 Active Continuous Glucose Sensor (FreeStyle Damaris 3 Plus Sensor) miscIndication s:Type 2 diabetes mellitus with hyperglycemia, with long-term current use of insulin ([facility]) 1 each every 15 days. Apply 1 every 15 days as directed for CGM 2 each 06/30/19 25 Active Alcohol Swabs (Alcohol Prep) 70 % padsIndication s:Type 2 diabetes mellitus without complication, unspecified whether terminal clerk insulin use ([facility]) USE DIRECTED FOUR TIMES DAILY 100 each 08/31/19 25 Active apixaban (Eliquis) 5 MG tablet TAKE 1 TABLET BY MOUTH TWICE DAILY IN THE MORNING AND IN THE EVENING 180 tablet 1 08/31/19 25 Active clopidogrel (Plavix) 75 MG tablet TAKE 1 TABLET BY MOUTH EVERY EVENING 90 tablet 1 08/31/19 25 Active atorvastatin (Lipitor) 40 MG tablet TAKE 1 TABLET BY MOUTH EVERY EVENING 90 tablet 1 10/05/19 25 Active isosorbide mononitrate ER (Imdur) 60 MG 24 hr tabletIndicati ons:Coronary artery disease of [place] artery of [place] heart with stable angina pectoris ([facility]) TAKE 1 TABLET BY MOUTH EVERY MORNING 90 tablet 1 10/05/19 25 Active BD Pen Needle Mini Ultrafine 31G X 5 MM misc USE DIRECTED THREE TIMES DAILY NEEDED 100 each 11/07/19 25 Active pantoprazole (ProtoNix) 40 MG EC tabletIndicati ons:Gastroesop hageal reflux disease, unspecified whether esophagitis present TAKE 1 TABLET BY MOUTH EVERY DAY DIRECTED 90 tablet 1 11/22/19 25 Active B-D UF III MINI PEN NEEDLES 31G X 5 MM misc Use TID prn sliding scale 100 each 03/19/19 25 025 Discontinued pantoprazole (ProtoNix) 40 MG EC tabletIndicati ons:Gastroesop hageal reflux disease, unspecified whether esophagitis present TAKE 1 TABLET BY MOUTH ONCE DAILY DIRECTED 90 tablet 1 06/05/19 25 025 Discontinued Active Problems Problem Noted Date Diagnosed Date [...] AND PLAN FOR TYPE 2 DIABETES MELLITUS (CMS/[facility]) WRITTEN ON 01/13/2023 4:09 PM BY STEPHANI TALBOT MD Uncontrolled, increase Trulicity to 1.5 mg /wk and FU with me in 6 wks Reschedule missed renetta with propeller mechanic Cont Milo and obtain labs I had a lengthy discussion with him about importance of dietary compliance, avoid sugary drinks, sweet treats and carbs. Assessment & Plan (01/11/2024 10:29 AM EST): >>ASSESSMENT AND PLAN FOR TYPE 2 DIABETES MELLITUS (CMS/HCC) WRITTEN ON 11/09/2023 12:40 PM BY DAGMAR [...] Uncontrolled, increase lantus 10 units and FU propeller mechanic next month Resolved Problems Problem Noted Date Diagnosed Date Resolved Date Candidal balanitis 01/12/2023 01/12/2023 Clostridium difficile diarrhea 11/26/2022 06/29/2024 Abrasion of skin of left great toe 10/14/2022 06/29/2024 Encounters Date Type Department Care Team Description 11/20/2024 Refill [facility] MEDICINE [address] [place] [address] Stephani Talbot MD Gastroesophageal reflux disease, unspecified whether esophagitis present 11/03/2024 Refill [facility] [address] [place] [address] Stephani Talbot MD 10/26/2024 Telephone [facility] [address] [place] [address] Stephani Talbot MD Nurse Triage 10/04/2024 Refill [facility] [address] [place] [address] Stepahni Talbot MD Coronary artery disease of [place] artery of [place] heart with stable angina pectoris ([facility]) 09/13/2024 Orders Only [facility] External Provider, [facility] 09/04/2024 Telephone [facility] [address] [place] [address] Stephani Talbot MD CGM PA 08/29/2024 Refill [facility] [address] [place] [address] Stephani Talbot MD Type 2 diabetes mellitus without complication, unspecified whether correction insulin use ([facility]) from Last 3 Months Immunizations Immunization Administration Dates Next Due Influenza High-dose Quadriva [...] 91 06/29/2024 11:05 AM EDT Temperature 36.1 C (96.9 F) 06/29/2024 11:05 AM EDT Respiratory Rate 16 11/09/2023 10:56 AM EDT [...] older (1 - 1-dose 75+ series) 2021 Lipid Panel 01/26/2024 01/25/2023, 11/07, 11/05/2020, Additional history exists Diabetes: Hemoglobin A1C 09/28/2024 025, 01/11/2024, 09/19/2023, Additional history exists COVID-19 Vaccine ( season) 2024 11/04/2021, 05/21/2021, 07/01/2020, Additional history exists Influenza Vaccine (#1) 2024 , 01/13/2023, 11/26/2021, Additional history exists SDOH Screening 06/20/2025 06/20/2024 Depression Screening 06/29/2025 06/29/2024, 05/26/19 24 Diabetes: Foot Exam 06/29/2025 06/29/2024, 06/29/2024, 06/29/2024, Additional history exists Tobacco Screening 06/29/2025 06/29/2024 Eye Exam 04/11/2026 04/11/2024 DTaP/Tdap/Td Vaccines (2 - Td or Tdap) 02/07/2027 02/07/2017, 07/06/2011, 07/06/2011 Pneumococcal Vaccine: 50+ Years Completed 03/16/2024, 12/02/2014, [...] patient's age to complete this topic Meningococcal B Vaccine Aged Out No l onger eligible based on patient's age to complete [...] Procedure Name Priority Date/Time Associated Diagnosis Comments NM KIDNEY FLOW/FUNCTION W PHARMACOLOGICAL INTERVENTION Routine 09/13/2024 10:00 AM EDT POCT GLYCATED HEMOGLOBIN, TOTAL Routine 06/29/2024 11:10 AM EDT Type 2 diabetes mellitus with hyperglycemia, with long-term current use of insulin ([facility]) HM DIABETES EYE EXAM Routine 04/11/2024 LIPID PANEL WITH REFLEX TO DIRECT LDL Routine 01/25/2023 9:47 AM EST Type 2 diabetes mellitus with hyperglycemia, with long-term current use of insulin ([facility]) from Last 3 Months or Most Recently Relevant to Health Maintenance Results * NM Kidney Flow/Function w/ Pharmacological Intervention (09/13/2024 10:00 AM EDT) Anatomical Region Laterality Modality Body Nuclear Medicine 09/13/2024 10:0 0 AM EDT Narrative 09/13/2024 12:44 PM EDT [place] [address] Nuclear Medicine Report Signed Patient: Matthew Lo MR#: [id number] : 1945 Acct:[id number] Age/Sex: 79 / M ADM Date: 09/13/24 Loc: [facility] Attending Dr: Abeba HOFFMAN Ordering Physician: Abeba Ayoub Date of Service: 09/13/24 Procedure(s): NM renal flow w pharm int Accession Number(s): [id number] cc: Stephani Talbot MD; Abeba Ayoub EXAMINATION: NM KIDNEY FLOW FUNCTION WITH RX HISTORY: N13.30 - Unspecified hydronephrosis. TECHNIQUE: A renogram and renal scan were performed following the intravenous administration of 10 mCi technetium 99m-DTPA. The patient received 36 mg IV Lasix approximately 30 minutes after injection of the radiopharmaceutical. COMPARISON: Correlation is made with a renal ultrasound dated 09/05/[address] of the abdomen without contrast dated 10/06/2022. FINDINGS: There is decreased blood flow to the left kidney which also appears smaller than the right. The right kidney demonstrates normal blood flow. The split function is approximately 73% on the right and 27% on the left. The right kidney demonstrates a normal activity peak, with accumulation of activity in the renal pelvis and subsequent washout. The left kidney demonstrates decreased function with some accumulation of activity within the renal pelvis and ureter. There is poor washout during the course of the examination. NM/NM renal flow w pharm int IMPRESSION: 1. Normally functioning right kidney. 2. Small left kidney with decreased blood flow and decreased function with poor washout. There is activity within the left ureter indicating lack of obstruction. Electronically signed by: Osorio Ellis MD 09/13/2024 12:41 PM EDT Dictated By: Osorio Ellis MD Signed By: <Electronically signed by Osorio Ellis MD in OV> 09/13/24 1241 DD/ 1000 TD/TT: 09/13/24 1200 Heavy Duty Custodian: Procedure Note Donotuseinterpreter, Image - 09/13/[address] [address] Nuclear Medicine Report Signed Patient: Darshan Lo#: [id number] : 7Acct:[id number] Age/Sex: 79 / MADM Date: 09/13/24 Loc: [facility] Attending Dr: Abeba Ayoub [facility] Ordering Physician: Abeba Ayoub [facility] Date of Service: 09/13/24 Procedure(s): NM renal flow w pharm int Accession Number(s): [id number] cc: Stephani Talbot MD; Abeba Ayoub [facility] EXAMINATION: NM KIDNEY FLOW FUNCTION WITH RX HISTORY: N13.30 - Unspecified hydronephrosis. TECHNIQUE: A renogram and renal scan were performed following the intravenous administration of 10 mCi technetium 99m-DTPA. The patient received 36 mg IV Lasix approximately 30 minutes after injection of the radiopharmaceutical. COMPARISON: Correlation is made with a renal ultrasound dated 09/05/[address] of the abdomen without contrast dated 10/06/2022. FINDINGS: There is decreased blood flow to the left kidney which also appears smaller than the right. The right kidney demonstrates normal blood flow. The split function is approximately 73% on the right and 27% on the left. The right kidney demonstrates a normal activity peak, with accumulation of activity in the renal pelvis and subsequent washout. The left kidney demonstrates decreased function with some accumulation of activity within the renal pelvis and ureter. There is poor washout during the course of the examination. NM/NM renal flow w pharm int IMPRESSION: 1. Normally functioning right kidney. 2. Small left kidney with decreased blood flow and decreased function with poor washout. There is activity within the left ureter indicating lack of obstruction. Electronically signed by: Osorio Ellis MD 09/13/2024 12:41 PM EDT Dictated By: Osorio Ellis MD Signed By: <Electronically signed by Osorio Ellis MD in OV> 09/13/24 1241 DD/ 1000 TD/TT: 09/13/24 1200 Heavy Duty Custodian: [facility] External Provider IMG NM PROCEDURES Edited Result - Final * (ABNORMAL) POCT HGB A1C (06/29/2024 11:10 AM EDT) Hemoglobin A1C 7.3(A) 4.0 - 6.0 % QC Media Lot # [id number] Lot# Expiration Date Blood 06/29/2024 11:1 0 AM EDT Stephani Talbot MD POINT OF CARE TEST ENTER /EDIT ORDERABLES Final Result * Hm Diabetes Eye Exam (04/11/2024) Eye Exam Normal Normal Stephani Talbot MD HEALTH MAINTENANCE Final Result * (ABNORMAL) Lipid Panel with Reflex to Direct LDL (01/25/2023 9:47 AM EST) Triglycerides 97 <150 mg/dL [facility] Comment:Desirable Triglyceri de: less than 150 mg/dLBorderline High Triglyceride 150-199 mg/dLHigh Triglyceride: 200-499 mg/dLVery High Triglyceride: greater than or equal to 5OO mg/dL Cholesterol 147 <200 mg/dL [facility] Comment:Desirable Cholestero l: less than 200 mg/dLBorderline High Cholesterol: 200-239 mg/dLHigh Cholesterol: greater than 239 mg/dL LDL Cholesterol Calculated 96 <100 mg/dL [facility] Comment:Desirable LDL: less than 100 mg/dLNear Optimal/Above Optimal LDL: 110- 129 mg/dLBorderline High LDL: 130-159 mg/dLHigh LDL: 160-189 mg/dLVery High LDL: greater than or equal to 190 mg/dL HDL Cholesterol 32(L) >40 mg/dL [facility] Comment:Desirable HDL: great er than 40 mg/dL Note: This HDL assay may give artificially low results in patients with liver disease. Blood 01/25/2023 9:47 AM EST 01/25/2023 11:16 AM EST Stephani Talbot MD LAB BLOOD ORDERABLES Fin al Result [facility] [address] [place] [phone] from Last 3 Months or Most Recently Relevant to Health Maintenance Insurance [facility] [employer]DC OPTIONS (O D-SNP) JACOB CHANEY [id number] [facility] [employer]DC OPTIONS (O D-SNP) [place]ACOB CHANEY [id number] Care Teams Material Specialist Relationship Specialty Start Date End Date Stephani Talbot MD [address] [place] [id number] PCP - General Family Medicine 01/25/19
--- OUTSIDE RECORDS SUMMARY | 2024-11-26 11:16 | XMS_ITS | Encounter Summary ---
Author Organization [employer] Address [address] [facility] 7t [place] [address] Care Team Providers Care Mineral Resources Inspector Name Role Phone Charlene Delgado MD Primary Care Provider + Encounter Details Date Type Department Care Team (Late st Contact Info) Description 04/21/2022 Orders Only [facility] CHC MED & PEDS [address] [place] [address] Gabriela Hunt LPN Social History Tobacco Use [...] on filedocumented in this encounter Care Teams Mineral Resources Inspector Relationship Specialty Start Date End Date Charlene Delgado MD [address] [place] [phone] PCP - General Family Medicine 01/25/19 documented as of this encounter
== END 2024-11-26 10:15 | disposition home or self-care (01) ==
LOC: HO.HUSH 09:34
PROVIDERS: PCP Internal Medicine; Visit Provider Nurse Practitioner Family
DX: N13.30 Unspecified hydronephrosis (principal); N20.0 Calculus of kidney; N40.0 Benign prostatic hyperplasia without lower urinary tract symptoms; Z13.9 Encounter for screening, unspecified
CPT/HCPCS: 99213; G2211

== ENCOUNTER 2024-11-26 10:15 | Outpatient (REF) | payer OTHER, SELFPAY ==
[2024-11-26 13:21] LABS: Hematocrit 36.6 % (42.0-52.0); Hemoglobin 12.2 g/dl (14.0-18.0); Mean Corpuscular HGB Conc 33.3 g/dl (31.0-36.0); Mean Corpuscular Hemoglobin 32.3 pg (27.0-33.0); Mean Corpuscular Volume 96.8 fL (80.0-98.0); NRBC Abs Auto 0.000 X10*3/uL (0.0-0.012); NRBC Pct Auto 0.0 /100WBC (0.0-0.2); Platelet Count 166 X10*3/uL (160-400); Red Blood Count 3.78 X10*6/uL (4.60-5.80); White Blood Count 7.5 X10*3/uL (4.8-10.8)
[2024-11-26 13:30] LABS: Alanine Aminotransferase 33 U/L (0-40); Albumin Level 4.2 g/dL (3.5-5.0); Alkaline Phosphatase 138 U/L (39-117); Anion Gap 9 (12-20); Aspartate Amino Transferase 37 U/L (5-37); Blood Urea Nitrogen 45 mg/dL (9-16); Calcium 9.2 mg/dL (8.4-10.2); Carbon Dioxide 28 mmol/L (22-29); Chloride 109 mmol/L (96-108); Estimated Glomerular Filt Rate 25; Potassium 5.4 mmol/L (3.3-5.1); Sodium 141 mmol/L (135-145); Total Protein 7.4 g/dL (6.5-8.0)
[2024-11-26 13:59] LABS: Prostate Specific Antigen 0.75 ng/mL (<0.05-4.0)
== END 2024-11-26 10:16 | disposition home or self-care (01) ==
LOC: HO.10HDL 10:15
PROVIDERS: Visit Provider Nurse Practitioner Family
DX: Z12.5 Encounter for screening for malignant neoplasm of prostate (principal); N40.0 Benign prostatic hyperplasia without lower urinary tract symptoms; R31.9 Hematuria, unspecified; N18.9 Chronic kidney disease, unspecified
CPT/HCPCS: 36415; 80053; 84153; 85027; 88112

== ENCOUNTER 2024-12-10 10:44 | Outpatient (AMB) | payer OTHER, SELFPAY ==
[2024-12-10 10:45] VITALS: BP 168/80; PULSE 89; O2SAT 97; BMI 27.1
--- NOTE | 2024-12-10 10:45 | HO.NEPHOV_ITS ---
Vital Signs 12/10/24 10:45 12/10/24 10:57 Height 5 ft 6 in Weight 168 lb BMI 27.1 BP 168/80 H 140/70 H Blood Pressure Location Lt brachial Lt brachial Position Sitting Sitting Pulse 89 Pulse Source Pulse Oximeter Pulse Oximetry (%) 97 Oxygen Delivery Method Room Air Intake Visit Reasons: 4mon follow-up w/labs-LVM Local Area Network Administrator Required: No Local Area Network Administrator Services: Local Area Network Administrator Offered & Declined (Daughter will translate) Accompanied by: Daughter Allergies empagliflozin (From [employer]) Adverse Reaction (Intermediate, Verified 12/10/24 10:48) reccurent UTI, hypoglycemia Medication List - Last Reconciled 12/10/24 by Elías Mosley MD apixaban (Eliquis) 5 mg PO BID atorvastatin 1 tab PO BEDTIME clopidogrel 75 mg PO DAILY dulaglutide (Trulicity) mg subcut QWEEK insulin glargine (Lantus Solostar U-100 Insulin) units subcut isosorbide mononitrate ER 60 mg PO DAILY metoprolol succinate ER 50 mg PO DAILY pen needle, diabetic (UltiCare Pen Needle) As directed pioglitazone 1 tab PO DAILY HPI Comments Details: Elderly man with a history of diabetes mellitus and nephrolithiasis here for follow-up. Baseline serum creatinine is around 2.5 mg/dL. Recently he was found to have mild left-sided hydronephrosis and awaiting procedure. He is history of non ST elevation [place] in April 2021. History of C diff which was treated with vancomycin in the past. Accompanied by his daughter. At present he has no specific complaints like dysuria urgency increased frequency or hematuria. No fever no weight loss. Interpretor was used 12/10/24 Recently seen by Renal scan reviewed No new issues today [facility] Medical History Ureteral stent present Chronic renal failure, stage 4 (severe) PAF (paroxysmal atrial fibrillation) Glucosuria A-fib Hypertension High cholesterol Diabetes 1.5, managed as type 2 Surgical History No pertinent past surgical history Family History Other No family history of coronary artery disease Social History Household Members: Family Housing: House Do you presently have visiting nurse or other home services: Yes Alcohol intake: never Comment: May change due to airborne precautions Patient Tobacco Use Status: Never used Tobacco e-Cigarette/Vaping Use: Never Used Advance Directives Date on File: 04/29/21 service: No Current occupational status: retired Physical Exam Vital Signs: Last Vital Signs Pulse 89 12/10/24 10:45 BP 140/70 H 12/10/24 10:57 Pulse Ox 97 12/10/24 10:45 Oxygen Delivery Method Room Air 12/10/24 10:45 BMI result Body Mass Index 27.1 Comfortable Neck supple no JVD. Lungs entry equal no rales. Heart S1-S2 heard no gallop or rub. Abdomen soft nontender. Neuro alert awake oriented. No asterixis. Extremities no edema. Results Reviewed Results Reviewed: May 2023 US/US retroperitoneal comp IMPRESSION: 1. Mild hydronephrosis of the left kidney and visualized portion of the proximal left ureter appear mildly dilated. No renal calculi appreciated. Bilateral ureteral jets were visualized. This can be further evaluated with CT urogram if clinically indicated. 2. Both kidneys demonstrate diffuse cortical thinning and overall increased echogenicity suggesting medical renal disease. Clinical correlation recommended. 3. Enlarged prostate gland. September 2024 Renal Scan NM/NM renal flow w pharm int IMPRESSION: 1. Normally functioning right kidney. 2. Small left kidney with decreased blood flow and decreased function with poor washout. There is activity within the left ureter indicating lack of obstruction. Nephrology Results: Hgb, (14.0-18.0) 12.2 g/dl L 11/26/24 WBC, (4.8-10.8) 7.5 X10*3/uL 11/26/24 Plt Count, (160-400) 166 X10*3/uL 11/26/24 Sodium, (135-145) 141 mmol/L 11/26/24 Potassium, (3.3-5.1) 5.4 mmol/L H 11/26/24 Chloride, (96-108) 109 mmol/L H 11/26/24 Carbon Dioxide, (22-29) 28 mmol/L 11/26/24 BUN, (9-16) 45 mg/dL H 11/26/24 Creatinine, (0.5-1.4) 2.50 mg/dL H 11/26/24 Calcium, (8.4-10.2) 9.2 mg/dL 11/26/24 PTH Intact, (8.7-77.1) 114.8 pg/mL H 07/16/24 Urine Protein, (Neg-Trace) 100 (2+) mg/dL H 07/16/24 Urine Creatinine 41.10 mg/dL 07/16/24 Renal US 09/05/23 Assessment & Plan Assessment & Plan (1) Nephrolithiasis: Code(s): N20.0 - Calculus of kidney Category: Medical (2) CKD (chronic kidney disease): Code(s): N18.9 - Chronic kidney disease, unspecified Category: Medical Plan . Elderly man with stage 4 chronic kidney disease in the setting of longstanding diabetes mellitus coronary disease and nephrolithiasis. Recent creatinine is 2.5 mg/dL. Close to baseline. ongoing obstruction could be playing a role. He has a h/o left-sided hydronephrosis Continue follow up with Urology He has no signs or symptoms of uremia. Fluid status is acceptable. As per nephrolithiasis should stay on low-sodium diet and increase fluid intake to maintain urine output of 2 L. Avoid nephrotoxic agents including NSAIDs. Maintain blood pressure less than 130/80 mm Hg. Discussed importance of tight control blood sugar to slow the portion of renal disease. Mild hyperkalemia Stay on low K diet Orders: Orders Basic Metabolic Panel 3 Months N18.9 - Chronic kidney disease, unspecified Coding Level of Care Code Est Pt Level 4 (49033) Diagnoses Nephrolithiasis N20.0 CKD (chronic kidney disease) N18.9
[2024-12-10 10:57] VITALS: BP 140/70
--- OUTSIDE RECORDS SUMMARY | 2024-12-10 12:53 | XMS_ITS | Encounter Summary ---
Author Organization [employer] Address [address] [facility] 7 [place] [address] Care Team Providers Care Nickel Plater Name Role Phone Charlene Delgado MD Primary Care Provider + Encounter Details Date Type Department Care Team ([facility] st Contact Info) Description 03/23/2022 Orders Only [facility] MEDICINE [address] [place], [place] [phone] Aimee Vogel LPN Social History Tobacco Use [...] on filedocumented in this encounter Care Teams Nickel Plater Relationship Specialty Start Date End Date Charlene Delgado MD [address] [place] [address] PCP - General Family Medicine 01/25/19 documented as of this encounter
--- OUTSIDE RECORDS SUMMARY | 2024-12-10 12:53 | XMS_ITS | Encounter Summary ---
Author Organization [employer] Address [address] [facility] 7t [place] [address] Care Team Providers Care Database Analyst Name Role Phone Charlene Delgado MD Primary Care Provider + Encounter Details Date Type Department Care Team (Late st Contact Info) Description 10/12/2022 Orders Only [facility] CHC MED & PEDS [address] [place] [address] Gabriela Hunt LPN Social History Tobacco Use [...] on filedocumented in this encounter Care Teams Database Analyst Relationship Specialty Start Date End Date Charlene Delgado MD [address] [place] [phone] PCP - General Family Medicine 01/25/19 documented as of this encounter
--- OUTSIDE RECORDS SUMMARY | 2024-12-10 12:53 | XMS_ITS | Clinical Summary ---
Author Organization [employer] Address [address] [facility] 7t [place] [address] Care Team Providers Care Clinical Nurse Occupational Medicine Name Role Phone Stephani Talbot MD Primary [...] hyperglycemia, with long-term current use of insulin (HCC) Inject 15 Units under the skin at bedtime. 13.5 mL 3 11/09/19 24 Active Dulaglutide 3 MG/0.5ML solution auto-injectorI ndications:Dahlia betes mellitus type 2, insulin dependent (HCC) Inject 0.5 mL (3 mg) under the skin 1 (one) time per week. 2 mL 11 01/11/20 24 025 Active insulin lispro (HumaLOG KWIKPEN) 100 UNIT/ML injection Use subcutaneous tid AC meals prn sliding scale: 150-200: 2u/ 201-250= 4u/251-300= 6u/ 301-350= 8u/351-400=10u/ above 400= 12u and call PCP 1 each 3 03/19/19 25 Active Continuous Glucose Semi Conductor Assembler (FreeStyle Damaris 3 [place]) deviceIndicati ons:Type 2 diabetes mellitus with hyperglycemia, with long-term current use of insulin (HCC) 1 each 3 times daily. Use as directed for CGM 1 each 06/30/19 25 Active Continuous Glucose Sensor (FreeStyle Damaris 3 Plus Sensor) miscIndication s:Type 2 diabetes mellitus with hyperglycemia, with long-term current use of insulin (HCC) 1 each every 15 days. Apply 1 every 15 days as directed for CGM 2 each 06/30/19 25 Active Alcohol Swabs (Alcohol Prep) 70 % padsIndication s:Type 2 diabetes mellitus without complication, unspecified whether residential insulin use USE DIRECTED FOUR TIMES DAILY 100 each 08/31/19 25 Active apixaban (Eliquis) 5 MG tablet TAKE 1 TABLET BY MOUTH TWICE DAILY IN THE MORNING AND IN THE EVENING 180 tablet 08/31/19 25 Active clopidogrel (Plavix) 75 MG tablet TAKE 1 TABLET BY MOUTH EVERY EVENING 90 tablet 1 08/31/19 25 Active atorvastatin (Lipitor) 40 MG tablet TAKE 1 TABLET BY MOUTH EVERY EVENING 90 tablet 1 10/05/19 25 Active isosorbide mononitrate ER (Imdur) 60 MG 24 hr tabletIndicati ons:Coronary artery disease of [place] artery of [place] heart with stable angina pectoris TAKE 1 TABLET BY MOUTH EVERY MORNING 90 tablet 1 10/05/19 25 Active BD Pen Needle Mini Ultrafine 31G X 5 MM misc USE DIRECTED THREE TIMES DAILY NEEDED 100 each 11/07/19 25 Active pantoprazole (ProtoNix) 40 MG EC tabletIndicati ons:Gastroesop hageal reflux disease, unspecified whether esophagitis present TAKE 1 TABLET BY MOUTH EVERY DAY DIRECTED 90 tablet 1 11/22/19 25 Active pantoprazole (ProtoNix) 40 MG EC [...] AND PLAN FOR TYPE 2 DIABETES MELLITUS ([facility]) WRITTEN ON 01/13/2023 4:09 PM BY STEPHANI TALBOT MD Uncontrolled, increase Trulicity to 1.5 mg /wk and FU with me in 6 wks Reschedule missed renetta with tub washer Cont Milo and obtain labs I had a lengthy discussion with him about importance of dietary compliance, avoid sugary drinks, sweet treats and carbs. Assessment & Plan (01/11/2024 10:29 AM EST): >>ASSESSMENT AND PLAN FOR TYPE 2 DIABETES MELLITUS ([facility]) WRITTEN ON 11/09/2023 12:40 PM BY DAGMAR [...] Uncontrolled, increase lantus 10 units and FU tub washer next month Resolved Problems Problem Noted Date Diagnosed Date Resolved Date Candidal balanitis 01/12/2023 01/12/2023 Clostridium difficile diarrhea 11/26/2022 06/29/2024 Abrasion of skin of left great toe 10/14/2022 06/29/2024 Encounters Date Type Department Care Team Description 11/20/2024 Refill [facility] MEDICINE [address] [place] [address] Stephani Talbot MD Gastroesophageal reflux disease, unspecified whether esophagitis present 11/03/2024 Refill [facility] MEDICINE [address] [place], [place] [phone] Stephani Talbot MD 10/26/2024 Telephone [facility] MEDICINE [address] [place], [place] [phone] Stephani Talbot MD Nurse Triage 10/04/2024 Refill [facility] MEDICINE [address] [place], [place] [phone] Stephani Talbot MD Coronary artery disease of [place] artery of [place] heart with stable angina pectoris ([facility]/HCC) 09/13/2024 Orders Only [facility] External Provider, [facility] from Last 3 Months Immunizations Immunization Administration [...] 75+ series) 2021 Lipid Panel 01/26/2024 01/25/2023, 09/3 , 11/05/2020, Additional history exists Diabetes: Hemoglobin A1C [...] hyperglycemia, with long-term current use of insulin ([facility]/HCC) DIABETES EYE EXAM Routine 04/11/2024 LIPID PANEL WITH REFLEX TO DIRECT LDL Routine 01/25/2023 9:47 AM EST Type 2 diabetes mellitus with hyperglycemia, with long-term current use of insulin ([facility]/HCC) from Last 3 Months or Most Recently Relevant to Health Maintenance Results * NM Kidney Flow/Function w/ Pharmacological Intervention (09/13/2024 10:00 AM EDT) Anatomical Region Laterality Modality Body Nuclear Medicine 09/13/2024 10:0 0 AM EDT Narrative 09/13/2024 12:44 PM EDT [place] [address] Nuclear Medicine Report Signed Patient: Matthew Lo MR#: [id number] : 1945 Acct:[id number] Age/Sex: 79 / M ADM Date: 09/13/24 Loc: [facility] Attending Dr: Abeba HOFFMAN Ordering Physician: Abeba Ayoub Date of Service: 09/13/24 Procedure(s): NM renal flow w pharm int Accession Number(s): [id number] cc: Stephani Talbot MD; Abeba Ayoub EXAMINATION: [...] Osorio Ellis MD 09/13/2024 12:41 PM EDT RP Dictated By: Osorio Ellis MD Signed By: <Electronically signed by Osorio Ellis MD in OV> 09/13/24 1241 DD/ 1000 TD/TT: 09/13/24 1200 Booster Operator: Procedure Note Donotuseinterpreter, Image - 09/13/2024 [place] [id number] Nuclear Medicine Report Signed Patient: Darshan Lo#: [id number] : 7Acct:[id number] Age/Sex: 79 / MADM Date: 09/13/24 Loc: [facility] Attending Dr: Abeba HOFFMAN Ordering Physician: Abeba Ayoub Date of Service: 09/13/24 Procedure(s): NM renal flow w pharm int Accession Number(s): [id number] cc: Stephani Talbot MD; Abeba Ayoub EXAMINATION: [...] 09/13/24 1241 DD/ 1000 TD/TT: 09/13/24 1200 Booster Operator: Result [facility] External Provider IMG NM PROCEDURES Edited Result - Final * (ABNORMAL) POCT HGB A1C (06/29/2024 11:10 AM EDT) Hemoglobin A1C 7.3(A) 4.0 - 6.0 % QC Media Lot # [id number] Lot# Expiration Date Blood 06/29/2024 11:1 0 AM EDT Result [facility] Stephani Talbot MD POINT OF CARE TEST ENTER /EDIT ORDERABLES Final Result * Hm Diabetes Eye Exam (04/11/2024) Eye Exam Normal Normal Stephani Talbot MD HEALTH MAINTENANCE Final Result * (ABNORMAL) Lipid Panel with Reflex to Direct LDL (01/25/2023 9:47 AM EST) Triglycerides 97 <150 mg/dL [facility] Comment:Desirable Triglyceri de: less than 150 mg/dLBorderline High Triglyceride 150-199 mg/dLHigh Triglyceride: 200-499 mg/dLVery High Triglyceride: greater than or equal to 5OO mg/dL Cholesterol 147 <200 mg/dL [facility] Comment:Desirable Cholestero l: less than 200 mg/dLBorderline High Cholesterol: 200-239 mg/dLHigh Cholesterol: greater than 239 mg/dL LDL Cholesterol Calculated 96 <100 mg/dL [facility] Comment:Desirable LDL: less than 100 mg/dLNear Optimal/Above Optimal LDL: 110- 129 mg/dLBorderline High LDL: 130-159 mg/dLHigh LDL: 160-189 mg/dLVery High LDL: greater than or equal to 190 mg/dL HDL Cholesterol 32(L) >40 mg/dL [facility] Comment:Desirable HDL: great er than 40 mg/dL Note: This HDL assay may give artificially low results in patients with liver disease. Blood 01/25/2023 9:47 AM EST 01/25/2023 11:16 AM EST us Stephani Talbot MD LAB BLOOD ORDERABLES Fin al Result [facility] [address] [place] [phone] from Last 3 Months or Most Recently Relevant to Health Maintenance Insurance [facility] [employer] (HMO D-SNP) [facility] [employer] (HMO D-SNP) Care Teams Clinical Nurse Occupational Medicine Relationship Specialty Start Date End Date Stephani Talbot MD [address] [place] [phone] PCP - General Family Medicine 01/25/19
--- OUTSIDE RECORDS SUMMARY | 2024-12-10 12:53 | XMS_ITS | Encounter Summary ---
Author Organization [email or web address] Address [address] [facility] 7t [place] [address] Care Team Providers Care Minute Clerk For Basic Traffic Name Role Phone Charlene Delgado MD Primary Care Provider + Encounter Details Date Type Department Care Team (Late st Contact Info) Description 03/23/2022 Orders Only [facility] CHC MED & PEDS [address] [place] [address] Gabriela Hunt LPN Social History Tobacco Use [...] on filedocumented in this encounter Care Teams Minute Clerk For Basic Traffic Relationship Specialty Start Date End Date Charlene Delgado MD [address] [place] [phone] PCP - General Family Medicine 01/25/19 documented as of this encounter
--- OUTSIDE RECORDS SUMMARY | 2024-12-10 12:53 | XMS_ITS | Encounter Summary ---
Author Organization [employer] Address [address] [facility] 7t [place] [address] Care Team Providers Care Research Clerk Name Role Phone Charlene Delgado MD Primary Care Provider + Encounter Details Date Type Department Care Team ([facility] st Contact Info) Description 12/31/2022 Abstract [facility] MEDICINE [address] [place], [place] [phone] Charlene Delgado MD [address] [place], [place] [phone] Social History Tobacco Use Types Packs/Day Years [...] on filedocumented in this encounter Care Teams Research Clerk Relationship Specialty Start Date End Date Charlene Delgado MD [address] [place] [phone] PCP - General Family Medicine 01/25/19 documented as of this encounter
--- OUTSIDE RECORDS SUMMARY | 2024-12-10 12:53 | XMS_ITS | Encounter Summary ---
Author Organization [employer] Address [address] [facility] 7t [place] [address] Care Team Providers Care Houseman Name Role Phone Charlene Delgado MD Primary Care Provider + Encounter Details Date Type Department Care Team ([facility] st Contact Info) Description 12/31/2022 Abstract [facility] MEDICINE [address] [place], [place] [phone] Charlene Delgado MD [address] [place], [place] [phone] Social History Tobacco Use Types Packs/Day Years [...] on filedocumented in this encounter Care Teams Houseman Relationship Specialty Start Date End Date Charlene Delgado MD [address] [place] [phone] PCP - General Family Medicine 01/25/19 documented as of this encounter
--- OUTSIDE RECORDS SUMMARY | 2024-12-10 12:53 | XMS_ITS | Encounter Summary ---
Author Organization [employer] Address [address] [facility] 7t [place] [address] Care Team Providers Care Automation Control Technician Name Role Phone Chalrene Delgado MD Primary Care Provider + Reason for Visit * Reason Comments Med Refill Encounter Details Date Type Department Care Team ([facility] st Contact Info) Description 04/12/2023 Refill [facility] MEDICINE [address] [place], [place] [phone] Charlene Delgado MD [address] [place], [place] [phone] Diabetes mellitus type 2, insulin dependent (CMS/HCC) [...] Diagnosis Diabetes mellitus type 2, insulin dependent (HCC) documented in this encounter Care Teams Automation Control Technician Relationship Specialty Start Date End Date Charlene Delgado MD [address] [place] [phone] PCP - General Family Medicine 01/25/19 documented as of this encounter
--- OUTSIDE RECORDS SUMMARY | 2024-12-10 12:53 | XMS_ITS | Encounter Summary ---
Author Organization [employer] Address [address] [facility] 7t [place] [address] Care Team Providers Care Group Activities Aide Name Role Phone hCarlene Delgado MD Primary Care Provider + Encounter Details Date Type Department Care Team (Late st Contact Info) Description 06/17/2022 Orders Only [facility] CH[facility] MED & PEDS [address] [place] [address] Gabriela Hunt LPN Social History Tobacco Use [...] filedocumented in this encounter Care Teams Group Activities Aide Relationship Specialty Start Date End Date Charlene Delgado MD [address] [place] [address] PCP - General Family Medicine 01/25/19 documented as of this encounter
--- OUTSIDE RECORDS SUMMARY | 2024-12-10 12:53 | XMS_ITS | Encounter Summary ---
Author Organization [employer] Address [address] [facility] 7t [place] [address] Care Team Providers Care Consumer Loan Manager Name Role Phone Charlene Delgado MD Primary Care Provider + Encounter Details Date Type Department Care Team (Late st Contact Info) Description 04/21/2022 Orders Only [facility] CHC MED & PEDS [address] [place] [address] Gabriela Hunt LPN Social History Tobacco Use [...] on filedocumented in this encounter Care Teams Consumer Loan Manager Relationship Specialty Start Date End Date Charlene Delgado MD [address] [place] [phone] PCP - General Family Medicine 01/25/19 documented as of this encounter
--- OUTSIDE RECORDS SUMMARY | 2024-12-10 12:53 | XMS_ITS | Clinical Summary ---
Author Organization [facility] Address [address] [place] [address] Phone Care Team Providers Care Rn Hemodialysis Charge Name Role Phone Charlene Delgado MD Primary Care Provider [phone] Allergies No known active allergies Medications pioglitazone [...] in 6 wks Reschedule missed renetta with studio hand Woo Pedraza and obtain labs I had [...] patient's age to complete this topic Insurance [facility] MCR ([id number]) [facility] MCR ([id number]) JACOB CHANEY [id number] Care Teams Rn Hemodialysis Charge Relationship Specialty Start Date End Date Charlene Delgado MD [address] [place] [phone] PCP - General 03/17/20
--- OUTSIDE RECORDS SUMMARY | 2024-12-10 12:53 | XMS_ITS | Encounter Summary ---
Author Organization [employer] Address [address] [facility] 7t [place] [address] Care Team Providers Care Oil Field Technician Name Role Phone Charlene Delgado MD Primary Care Provider + Encounter Details Date Type Department Care Team (Late st Contact Info) Description 07/07/2022 Orders Only [facility] CHC MED & PEDS [address] [place] [address] Gabriela Hunt LPN Social History Tobacco Use [...] on filedocumented in this encounter Care Teams Oil Field Technician Relationship Specialty Start Date End Date Charlene Delgado MD [address] [place] [address] PCP - General Family Medicine 01/25/19 documented as of this encounter
--- OUTSIDE RECORDS SUMMARY | 2024-12-10 12:53 | XMS_ITS | Encounter Summary ---
Author Organization [employer] Address [address] [facility] 7t [place] [address] Care Team Providers Care Seismograph Recorder Name Role Phone Charlene Delgado MD Primary Care Provider + Reason for Visit * Reason Comments Med Refill Encounter Details Date Type Department Care Team ([facility] st Contact Info) Description 12/29/2022 Refill [facility] MEDICINE [address] [place], [place] [phone] Charlene Delgado MD [address] [place], [place] [phone] Coronary artery disease of [place] artery of [place] heart with stable angina pectoris (CMS/HCC) Social [...] Visit Diagnoses Diagnosis Coronary artery disease of [place] artery of [place] heart with stable angina pectoris documented in this encounter Care Teams Seismograph Recorder Relationship Specialty Start Date End Date Charlene Delgado MD [address] [place] [address] PCP - General Family Medicine 01/25/19 documented as of this encounter
--- OUTSIDE RECORDS SUMMARY | 2024-12-10 12:53 | XMS_ITS | Encounter Summary ---
Author Organization [employer] Address 75 [facility] 7 [place] [address] Care Team Providers Care Coil Shaper Name Role Phone Charlene Delgado MD Primary Care Provider + Reason for Visit * Reason Onset Date Comments Reschedule 07/19/2023 Encounter Details Date Type Department Care Team ([facility] st Contact Info) Description 07/19/2023 Telephone [facility] MEDICINE [address] [place], [place] [phone] Charlene Delgado MD 230 [place], [place] [phone] Reschedule Social History Tobacco Use Types Packs/Day [...] documented as of this encounter Care Teams Coil Shaper Relationship Specialty Start Date End Date Charlene Delgado MD [address] [place] [phone] PCP - General Family Medicine 01/25/19 documented as of this encounter
--- OUTSIDE RECORDS SUMMARY | 2024-12-10 12:53 | XMS_ITS | Encounter Summary ---
Author Organization [employer] Address 75 [facility] 7t [place] [address] Care Team Providers Care Cutter Woodwind Reeds Name Role Phone Charlene Delgado MD Primary Care Provider + Encounter Details Date Type Department Care Team ([facility] st Contact Info) Description 12/31/2022 Abstract [facility] MEDICINE 230 [place], [place] [phone] Charlene Delgado MD 230 [place], [place] [phone] Social History Tobacco Use Types Packs/Day Years [...] on filedocumented in this encounter Care Teams Cutter Woodwind Reeds Relationship Specialty Start Date End Date Charlene Delgado MD [address] [place] [phone] PCP - General Family Medicine 01/25/19 documented as of this encounter
--- OUTSIDE RECORDS SUMMARY | 2024-12-10 12:53 | XMS_ITS | Encounter Summary ---
Author Organization [employer] Address 75 [facility] 7t [place] [address] Care Team Providers Care Securities Analyst Name Role Phone Charlene Delgado MD Primary Care Provider + Encounter Details Date Type Department Care Team (Late st Contact Info) Description 05/20/2022 Orders Only [facility] CHC MED & PEDS 505 [place] [address] Gabriela Hunt LPN Social History Tobacco Use [...] on filedocumented in this encounter Care Teams Securities Analyst Relationship Specialty Start Date End Date Charlene Delgado MD [address] [place] [phone] PCP - General Family Medicine 01/25/19 documented as of this encounter
== END 2024-12-10 11:00 | disposition home or self-care (01) ==
LOC: HO.HKA 10:44
PROVIDERS: PCP Internal Medicine; Visit Provider Internal Medicine Hypertension Specialist
DX: N20.0 Calculus of kidney (principal); N18.9 Chronic kidney disease, unspecified
CPT/HCPCS: 99214

== ENCOUNTER → 2024-12-10 10:44 | Outpatient (BNVA) | payer OTHER, SELFPAY | PROVIDERS: PCP Internal Medicine; Visit Provider Internal Medicine Hypertension Specialist | DX: N20.0 Calculus of kidney (principal); E13.22 Other specified diabetes mellitus with diabetic chronic kidney disease; I12.9 Hypertensive chronic kidney disease with stage 1 through stage 4 chronic kidney disease, or unspecified chronic kidney disease; N18.4 Chronic kidney disease, stage 4 (severe) | CPT/HCPCS: 99212 ==

== ENCOUNTER 2024-12-27 09:22 | Outpatient (AMB) | payer OTHER, SELFPAY ==
--- NOTE | 2024-12-27 09:22 | A.OFFVIS_ITS ---
Intake Visit Reasons: 1M F/U Intake Note: Patient is present for 1M F/U Urology Medication:NONE Antibiotic Allergy:NONE Blood Thinner:APIXABAN Photography Spotter Required: No Allergies empagliflozin (From OmniStrat) Adverse Reaction (Intermediate, Verified 12/27/24 09:41) reccurent UTI, hypoglycemia Medication List - Last Reconciled 12/27/24 by YURIDIA Bourne- apixaban (Eliquis) 5 mg PO BID atorvastatin 1 tab PO BEDTIME clopidogrel 75 mg PO DAILY dulaglutide (Trulicity) mg subcut QWEEK insulin glargine (Lantus Solostar U-100 Insulin) units subcut isosorbide mononitrate ER 60 mg PO DAILY metoprolol succinate ER 50 mg PO DAILY pen needle, diabetic (UltiCare Pen Needle) As directed pioglitazone 1 tab PO DAILY HPI Comments Details: Matthew is a very pleasant Andorran-speaking 79-year-old male patient of Dr. Delgado who was accompanied by his daughter at today's telehealth visit. He has a past medical history of diabetes, AFib, chronic renal failure stage 4, hypercholesteremia, and hypertension. He is being followed up on today via video telehealth for his history of nephrolithiasis, hydronephrosis, bladder wall thickening, and bladder outlet obstruction. In discussion with the patient and his daughter today he reports to be doing and feeling well. He denies having had any bothersome urinary issues or concerns. We did review most recent nuclear renal imaging results as well as labs. Nuclear renal scan 09/28 noting a decreased blood flow to the left kidney which also appears smaller than the right. The right kidney demonstrates normal blood flow. The split function is approximately 73% on the right and 27% on the left. Normal functioning right kidney. Small left kidney with decreased blood flow and decreased function with poor washout. There is activity within the left ureter indicating lack of absorption. Patient and daughter report they have recently followed up with Nephrology. We discussed further treatment options to include cystoscopy with retrogrades and left ureteral stent placement with repeat Lasix renogram versus surveillance monitoring. When asked he denies any bothersome urinary issues. When asked he denies urinary urgency, urinary frequency, incontinence, nocturia, gross/ visible hematuria, dysuria, foul smelling urine, changes to urinary stream, flank pain, fever, and or chills. He is happy with his current voiding parameters. Discussed importance of following up as planned. He otherwise offers no other issues or concerns at this time. Labs are as follows: BUN: 04/28 53, 04/28 25, 10/26 37, 11/26 41, 08/27 48, 10/27 46 10/27 30, 01/27 41, 05/28 50, 09/27 35, 09/27 35, 11/28 46, 03/31 45, 07/29 41, 11/29 45 Creatinine: 04/28 1.89, 10/26 2.32, 11/26 2.11, 11/26 2.31, 08/27 2.76, 10/27 2.90, 10/27 2.76, 10/27 3.21, 10/27 2.11, 01/27 2.26, 05/28 2.75, 09/27 2.50, 11/28 2.66, 03/31 2.90, 07/29 2.25, 11/29 2.5 PSA: 11/29 0.8 PFSH Medical History Ureteral stent present Chronic renal failure, stage 4 (severe) PAF (paroxysmal atrial fibrillation) Glucosuria A-fib Hypertension High cholesterol Diabetes 1.5, managed as type 2 Surgical History No pertinent past surgical history Family History Other No family history of coronary artery disease Social History Household Members: Family Housing: House Do you presently have visiting nurse or other home services: Yes Alcohol intake: never Comment: May change due to airborne precautions Patient Tobacco Use Status: Never used Tobacco e-Cigarette/Vaping Use: Never Used Advance Directives Date on File: 04/29/21 service: No Current occupational status: retired Review of Systems Const Reports as per HPI Eyes Reports no additional complaints ENT Reports no additional complaints Card Reports as per HPI Resp Reports no additional complaints GI Reports as per HPI Reports as per HPI Musc Reports no additional complaints Neuro Reports as per HPI Psych Reports no additional complaints Endo Reports as per HPI Bennie/Lymph Reports no additional complaints Aller/Immun Reports no additional complaints Physical Exam Const General: cooperative, healthy appearing, comfortable, no acute distress, well developed, alert and awake Orientation/consciousness: patient oriented x3 Limitations: language barrier HEENT Head: Yes normal to inspection, Yes normocephalic and Yes atraumatic Ears: hearing grossly normal bilaterally Eyes General: appearance normal, both eyes and all related structures Neck Neck: Yes normal visual inspection and Yes trachea midline Chest Chest palpation & inspection: normal inspection of the chest Resp Effort & Inspection: normal respiratory effort and able to speak in complete sentences Cardio Rate: regular rate GI Inspection: Yes normal to inspection General: Yes no CVA tenderness Back/Spine/Pelvis Back: no CVA tenderness Skin General skin exam: no rashes or lesions noted Neuro General: patient oriented x3 Extrem General: Yes normal to inspection Psych Appearance: grossly normal and well kempt Mental Status: mental status grossly normal Speech and movement: Normal speech and movement present and Clear speech present Affect: normal affect Attitude: cooperative Thought process: Normal thought process present Thought content: Normal thought content present Insight: Fair insight present (Psych) Judgement: Fair judgement present (Psych) Telehealth Telehealth Telehealth Platform: Telephone Location of provider rendering services: practice address Location of patient: address on file Patient Identification confirmed using: Name, : Yes Telehealth method: video Patient verbally consented to treatment: Yes Patient verbally consented to billing insurance company: Yes Patient informed of any privacy concerns related to visit: Yes Minutes spent on Phone/Video with Pt.: 20 Assessment & Plan Assessment & Plan (1) Hydronephrosis: Code(s): N13.30 - Unspecified hydronephrosis Category: Medical (2) Nephrolithiasis: Code(s): N20.0 - Calculus of kidney Category: Medical (3) Enlarged prostate: Code(s): N40.0 - Benign prostatic hyperplasia without lower urinary tract symptoms Category: Medical Plan: Risks, benefits and alternatives to therapy were discussed. These include but are not limited to infection, bleeding, damage to local organs and tissues, need for further interventions. ? Anesthetic risks regarding cardiac arrhythmia, blood clots, and potential mortality were discussed. The patient understands the typical recovery time and the outpatient nature of the procedure. After consideration of these risks the patient gives full informed consent and they wish to move ahead with the procedure. Plan Recent BUN, creatinine, and PSA results reviewed with the patient and his daughter today Recent nuclear renal scan results reviewed with the patient today; as noted above. We discussed importance of obtaining labs as ordered as well as maintaining follow-up appointments He currently denies any bothersome urinary issues or concerns. He reports be happy with current voiding parameters. All questions were answered We discussed further interventions of hydronephrosis to include cystoscopy with retrograde in left-sided stent placement for surveillance monitoring; risks and benefits of these interventions were discussed. We did discuss potential need for cardiac clearance. Will schedule for surgical procedure as discussed. Follow-up per doctor's orders; or sooner with any issues, concerns, and or questions. Patient Instructions: The patient had an opportunity to ask questions regarding the treatment plan. All questions were answered. Physical exam, labs, and imaging were discussed and reviewed in detail. As well as risks, benefits, and discussion of treatment choices. No major barriers to understanding were identified. The patient expressed understanding and agreement with the above treatment plan. The patient was made aware they should contact our office by phone for worsening of their current condition, the appearance of new symptoms, or with any questions or concerns. Compliance is encouraged with any medications and follow up testing that is ordered. It is a privilege to be allowed the opportunity to participate in? your urological care.? Again, if you have any questions or concerns If you have any questions or concerns please do not hesitate to contact me. The office is [phone]. This note is constructed using voice recognition software. While every effort has been made to ensure accuracy banking paralegal errors may have been included. Yours sincerely, YASMIN Bourne Coding Level of Care Code Tele Est Pt Level 4 (36542) Complex EM visit Add On G2211 Diagnoses Hydronephrosis N13.30 Nephrolithiasis N20.0 Enlarged prostate N40.0
--- OUTSIDE RECORDS SUMMARY | 2024-12-27 10:23 | XMS_ITS | Clinical Summary ---
Author Organization [employer] Address [address] [place] [address] 7t [place] [address] Care Team Providers Care Hospice Director Name Role Phone Charlene Talbot MD Primary Care Provider + Allergies Active Allergy Reactions Criticality Noted Date Comments Empagliflozin High 10/07/2022 Other reaction(s): reccurent UTI, hypoglycemia Medications TRUEplus Lancets 33G misc USE FOUR TIMES DAILY DIRECTED 200 each 5 023 Active metoprolol succinate XL (Toprol-XL) 50 MG 24 hr tablet 023 Active pioglitazone (Actos) 45 MG tablet 023 Active glucose blood test strip Test blood sugar 3 times daily Active insulin glargine (Lantus SoloStar) 100 UNIT/ML penIndications :Type 2 diabetes mellitus with hyperglycemia, with long-term current use of insulin (HCC) Inject 15 Units under the skin at bedtime. 13.5 mL 3 024 Active Dulaglutide 3 MG/0.5ML solution auto-injectorI ndications:Dahlia betes mellitus type 2, insulin dependent (HCC) Inject 0.5 mL (3 mg) under the skin 1 (one) time per week. 2 mL 11 024 2024 Active Continuous Glucose Automobile Washer Steam (FreeStyle Damaris 3 [place]) deviceIndicati ons:Type 2 diabetes mellitus with hyperglycemia, with long-term current use of insulin (HCC) 1 each 3 times daily. Use as directed for CGM 1 each 025 Active Continuous Glucose Sensor (FreeStyle Damaris 3 Plus Sensor) miscIndication s:Type 2 diabetes mellitus with hyperglycemia, with long-term current use of insulin (HCC) 1 each every 15 days. Apply 1 every 15 days as directed for CGM 2 each 025 Active Alcohol Swabs (Alcohol Prep) 70 % padsIndication s:Type 2 diabetes mellitus without complication, unspecified whether fci insulin use USE DIRECTED FOUR TIMES DAILY 100 each 11 025 Active apixaban (Eliquis) 5 MG tablet TAKE 1 TABLET BY MOUTH TWICE DAILY IN THE MORNING AND IN THE EVENING 180 tablet 1 025 Active clopidogrel (Plavix) 75 MG tablet TAKE 1 TABLET BY MOUTH EVERY EVENING 90 tablet 1 025 Active atorvastatin (Lipitor) 40 MG tablet TAKE 1 TABLET BY MOUTH EVERY EVENING 90 tablet 025 Active isosorbide mononitrate ER (Imdur) 60 MG 24 hr tabletIndicati ons: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 TAKE 1 TABLET BY MOUTH EVERY MORNING 90 tablet 1 025 Active BD Pen Needle Mini Ultrafine 31G X 5 MM misc USE DIRECTED THREE TIMES DAILY NEEDED 100 each 025 Active pantoprazole (ProtoNix) 40 MG EC tabletIndicati ons:Gastroesop hageal reflux disease, unspecified whether esophagitis present TAKE 1 TABLET BY MOUTH EVERY DAY DIRECTED 90 tablet 1 025 Active insulin lispro (HumaLOG KWIKPEN) 100 UNIT/ML injection USE SUBCUTANEOUSLY THREE TIMES DAILY BEFORE MEALS NEEDED SLIDING SCALE: 150-200 = 2 UNITS, 201-250 = 4 UNITS, 251-300 = 6 UNITS, 301-350 = 8 UNITS, 351-400 = 10 UNITS, > 400 = 12 UNITS AND CALL DOCTOR 15 mL 3 025 Active insulin lispro (HumaLOG KWIKPEN) 100 UNIT/ML injection Use subcutaneous tid AC meals prn sliding scale: 150-200: 2u/ 201-250= 4u/251-300= 6u/ 301-350= 8u/351-400=10u/ab ove 400= 12u and call PCP 1 each 3 025 2024 Discontinued Active Problems Problem Noted Date Diagnosed [...] Assessment & Plan (05/26/2023 12:28 PM EDT): 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 Assessment & Plan (01/11/2024 10:29 AM EST): >>ASSESSMENT AND PLAN FOR TYPE 2 DIABETES MELLITUS ([facility]) WRITTEN ON 11/09/2023 12:40 PM BY [...] Uncontrolled, increase lantus 10 units and FU regrinder operator next month Resolved Problems Problem Noted Date Diagnosed Date Resolved Date Candidal balanitis 01/12/2023 01/12/2023 Clostridium difficile diarrhea 11/26/2022 06/29/2024 Abrasion of skin of left great toe 10/14/2022 06/29/2024 Encounters Date Type Department Care Team Description 12/14/2024 Refill [facility] MEDICINE [address] [place], [place] [phone] Charlene Talbot MD 11/20/2024 Refill [facility] MEDICINE [address] [place], [place] [phone] Charlene Talbot MD Gastroesophageal reflux disease, unspecified whether esophagitis present 11/03/2024 Refill [facility] MEDICINE [address] [place], [place] [phone] Charlene Talbot MD 10/26/2024 Telephone [facility] MEDICINE [address] [place] [address] Charlene Talbot MD Nurse Triage 10/04/2024 Refill [facility] MEDICINE [address] [place] [address] Charlene Talbot MD 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 ([facility]/HCC) from Last 3 Months Immunizations Immunization Administration [...] hyperglycemia, with long-term current use of insulin ([facility]) DIABETES EYE EXAM Routine 04/11/2024 LIPID PANEL WITH REFLEX TO DIRECT LDL Routine 01/25/2023 9:47 AM EST Type 2 diabetes mellitus with hyperglycemia, with long-term current use of insulin ([facility]) from Last 3 Months or Most Recently Relevant to Health Maintenance Results * (ABNORMAL) POCT HGB A1C (06/29/2024 11:10 AM EDT) Hemoglobin A1C 7.3(A) 4.0 - 6.0 % QC Media Lot # [id number] Lot# Expiration Date Blood 06/29/2024 11:1 0 AM EDT Charlene Talbot MD POINT OF CARE TEST ENTER /EDIT ORDERABLES Final Result * Diabetes Eye Exam (04/11/2024) Eye Exam Normal Normal Charlene Talbot MD HEALTH MAINTENANCE Final Result * (ABNORMAL) Lipid Panel with Reflex to Direct LDL (01/25/2023 9:47 AM EST) Triglycerides 97 <150 mg/dL [facility] Comment:Desirable Triglyceri de: less than 150 mg/dLBorderline High Triglyceride 150-199 mg/dLHigh Triglyceride: 200-499 mg/dLVery High Triglyceride: greater than or equal to 5OO mg/dL Cholesterol 147 <200 mg/dL [facility] Comment:Desirable Cholestero l: less than 200 mg/dLBorderline High Cholesterol: 200-239 mg/dLHigh Cholesterol: greater than 239 mg/dL LDL Cholesterol Calculated 96 <100 mg/dL [facility] Comment:Desirable LDL: less than 100 mg/dLNear Optimal/Above Optimal LDL: 110- 129 mg/dLBorderline High LDL: 130-159 mg/dLHigh LDL: 160-189 mg/dLVery High LDL: greater than or equal to 190 mg/dL HDL Cholesterol 32(L) >40 mg/dL [facility] Comment:Desirable HDL: great er than 40 mg/dL Note: This HDL assay may give artificially low results in patients with liver disease. Blood 01/25/2023 9:47 AM EST 01/25/2023 11:16 AM EST us Charlene Talbot MD LAB BLOOD ORDERABLES Fin al Result [facility] [address] [place] [address] [phone] from Last 3 Months or Most Recently Relevant to Health Maintenance Insurance [facility] CUSTODIAL OPTIONS (O D-SNP) [facility] [employer] (O D-SNP) Care Teams Hospice Director Relationship Specialty Start Date End Date Charlene Talbot MD [address] [place] [phone] PCP - General Family Medicine 01/25/19
--- OUTSIDE RECORDS SUMMARY | 2024-12-27 10:23 | XMS_ITS | Encounter Summary ---
Author Organization [employer] Address 75 [facility] 7t [place] [address] Care Team Providers Care Case Management Coordinator Name Role Phone Charlene Delgado MD Primary Care Provider + Encounter Details Date Type Department Care Team ([facility] st Contact Info) Description 12/31/[address] [facility] MEDICINE [address] [place], [place] [phone] Charlene Delgado MD 230 [place], [place] [phone] Social History Tobacco Use Types Packs/Day Years [...] on filedocumented in this encounter Care Teams Case Management Coordinator Relationship Specialty Start Date End Date Charlene Delgado MD [address] [place] [phone] PCP - General Family Medicine 01/25/19 documented as of this encounter
--- OUTSIDE RECORDS SUMMARY | 2024-12-27 10:23 | XMS_ITS | Encounter Summary ---
Author Organization [employer] Address 75 [facility] 7t [place] [address] Care Team Providers Care Stave Cutter Name Role Phone Charlene Delgado MD Primary Care Provider + Encounter Details Date Type Department Care Team (Late st Contact Info) Description 10/12/2022 Orders Only [facility] CHC MED & PEDS [address] [place] [address] Gabriela Hunt LPN Social History Tobacco Use [...] on filedocumented in this encounter Care Teams Stave Cutter Relationship Specialty Start Date End Date Charlene Delgado MD [address] [place] [phone] PCP - General Family Medicine 01/25/19 documented as of this encounter
--- OUTSIDE RECORDS SUMMARY | 2024-12-27 10:23 | XMS_ITS | Encounter Summary ---
Author Organization [employer] Address 75 [facility] 7t [place] [address] Care Team Providers Care Disc Jockey Name Role Phone Charlene Delgado MD Primary Care Provider + Encounter Details Date Type Department Care Team ([facility] st Contact Info) Description 12/31/2022 Abstract [facility] MEDICINE 230 [place], [place] [phone] Charlene Delgado MD 230 [place], [place] [phone] Social History Tobacco Use Types Packs/Day Years [...] on filedocumented in this encounter Care Teams Disc Jockey Relationship Specialty Start Date End Date Charlene Delgado MD [address] [place] [phone] PCP - General Family Medicine 01/25/19 documented as of this encounter
--- OUTSIDE RECORDS SUMMARY | 2024-12-27 10:23 | XMS_ITS | Encounter Summary ---
Author Organization [employer] Address 75 [facility] 7t [place] [address] Care Team Providers Care Line Therapist Name Role Phone Charlene Delgado MD Primary Care Provider + Reason for Visit * Reason Comments Med Refill Encounter Details Date Type Department Care Team ([facility] st Contact Info) Description 04/12/[address] [facility] MEDICINE 230 [place], [place] [phone] Charlene Delgado MD 230 [place], [place] [phone] Diabetes mellitus type 2, insulin dependent (CMS/HCC) [...] (HCC) documented in this encounter Care Teams Line Therapist Relationship Specialty Start Date End Date Charlene Delgado MD [address] [place] [phone] PCP - General Family Medicine 01/25/19 documented as of this encounter
--- OUTSIDE RECORDS SUMMARY | 2024-12-27 10:23 | XMS_ITS | Encounter Summary ---
Author Organization [employer] Address 75 [facility] 7t [place] [address] Care Team Providers Care Phonograph Cartridge Assembler Name Role Phone Charlene Delgado MD Primary Care Provider + Encounter Details Date Type Department Care Team (Late st Contact Info) Description 05/20/2022 Orders Only [facility] CHC MED & PEDS [address] [place] [address] Gabriela Hunt LPN Social History Tobacco Use [...] on filedocumented in this encounter Care Teams Phonograph Cartridge Assembler Relationship Specialty Start Date End Date Charlene Delgado MD [address] [place] [phone] PCP - General Family Medicine 01/25/19 documented as of this encounter
--- OUTSIDE RECORDS SUMMARY | 2024-12-27 10:23 | XMS_ITS | Encounter Summary ---
Author Organization [employer] Address 75 [facility] 7 [place] [address] Care Team Providers Care Public Relations Coordinator Name Role Phone Charlene Delgado MD Primary Care Provider + Reason for Visit * Reason Onset Date Comments Reschedule 07/19/2023 Encounter Details Date Type Department Care Team ([facility] st Contact Info) Description 07/19/2023 Telephone [facility] MEDICINE 230 [place], [place] [phone] Charlene Delgado MD 230 [place], [place] [phone] Reschedule Social History Tobacco Use Types Packs/Day [...] documented as of this encounter Care Teams Public Relations Coordinator Relationship Specialty Start Date End Date Charlene Delgado MD [address] [place] [phone] PCP - General Family Medicine 01/25/19 documented as of this encounter
--- OUTSIDE RECORDS SUMMARY | 2024-12-27 10:23 | XMS_ITS | Encounter Summary ---
Author Organization [employer] Address 75 [facility] 7t [place] [address] Care Team Providers Care Marine Equipment Preservation Inspector Name Role Phone Charlene Delgado MD Primary Care Provider + Encounter Details Date Type Department Care Team (Late st Contact Info) Description 03/23/2022 Orders Only [facility] MED & PEDS [address] [place] [address] Gabriela Hunt LPN Social History Tobacco Use [...] on filedocumented in this encounter Care Teams Marine Equipment Preservation Inspector Relationship Specialty Start Date End Date Charlene Delgado MD [address] [place] [phone] PCP - General Family Medicine 01/25/19 documented as of this encounter
--- OUTSIDE RECORDS SUMMARY | 2024-12-27 10:23 | XMS_ITS | Encounter Summary ---
Author Organization [employer] Address 75 [facility] 7t [place] [address] Care Team Providers Care Airplane Pilot Helper Name Role Phone Charlene Delgado MD Primary Care Provider + Encounter Details Date Type Department Care Team (Late st Contact Info) Description 07/07/2022 Orders Only [facility] CHC MED & PEDS [address] [place] [address] Gabriela Hunt LPN Social History Tobacco Use [...] on filedocumented in this encounter Care Teams Airplane Pilot Helper Relationship Specialty Start Date End Date Charlene Delgado MD [address] [place] [address] PCP - General Family Medicine 01/25/19 documented as of this encounter
--- OUTSIDE RECORDS SUMMARY | 2024-12-27 10:23 | XMS_ITS | Encounter Summary ---
Author Organization [employer] Address 75 [facility] 7 [place] [address] Care Team Providers Care Outpatient Therapist Name Role Phone hCarlene Delgado MD Primary Care Provider + Encounter Details Date Type Department Care Team ([facility] st Contact Info) Description 03/23/2022 Orders Only [facility] MEDICINE [address] [place], [place] [phone] Aimee Vogel LPN Social History Tobacco Use [...] on filedocumented in this encounter Care Teams Outpatient Therapist Relationship Specialty Start Date End Date Charlene Delgado MD [address] [place] [address] PCP - General Family Medicine 01/25/19 documented as of this encounter
--- OUTSIDE RECORDS SUMMARY | 2024-12-27 10:23 | XMS_ITS | Encounter Summary ---
Author Organization [employer] Address 75 [facility] 7t [place] [address] Care Team Providers Care Scale Manager Name Role Phone Charlene Delgado MD Primary Care Provider + Encounter Details Date Type Department Care Team (Late st Contact Info) Description 06/17/2022 Orders Only [facility] CHC MED & PEDS [address] [place] [address] Gabriela Hunt LPN Social History Tobacco Use [...] on filedocumented in this encounter Care Teams Scale Manager Relationship Specialty Start Date End Date Charlene Delgado MD [address] [place] [phone] PCP - General Family Medicine 01/25/19 documented as of this encounter
--- OUTSIDE RECORDS SUMMARY | 2024-12-27 10:23 | XMS_ITS | Encounter Summary ---
Author Organization [employer] Address 75 [facility] 7t [place] [address] Care Team Providers Care Check Services Clerk Name Role Phone Charlene Delgado MD Primary Care Provider + Encounter Details Date Type Department Care Team (Late st Contact Info) Description 04/21/2022 Orders Only [facility] CHC MED & PEDS [address] [place] [address] Gabriela Hunt LPN Social History Tobacco Use [...] on filedocumented in this encounter Care Teams Check Services Clerk Relationship Specialty Start Date End Date Charlene Delgado MD [address] [place] [address] PCP - General Family Medicine 01/25/19 documented as of this encounter
--- OUTSIDE RECORDS SUMMARY | 2024-12-27 10:23 | XMS_ITS | Encounter Summary ---
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
--- OUTSIDE RECORDS SUMMARY | 2024-12-27 10:23 | XMS_ITS | Encounter Summary ---
Author Organization [employer] Address 75 [facility] 7t [place] [address] Care Team Providers Care Billing Department Supervisor Name Role Phone Charlene Delgado MD Primary Care Provider + Encounter Details Date Type Department Care Team ([facility] st Contact Info) Description 12/31/2022 Abstract [facility] MEDICINE [address] [place], [place] [phone] Charlene Delgado MD 230 [place], [place] [phone] Social History Tobacco Use Types Packs/Day Years [...] on filedocumented in this encounter Care Teams Billing Department Supervisor Relationship Specialty Start Date End Date Charlene Delgado MD [address] [place] [phone] PCP - General Family Medicine 01/25/19 documented as of this encounter
== END 2024-12-27 10:02 | disposition home or self-care (01) ==
LOC: HO.HUSH 09:22
PROVIDERS: PCP Internal Medicine; Visit Provider Nurse Practitioner Family
DX: N13.30 Unspecified hydronephrosis (principal); N20.0 Calculus of kidney; N40.0 Benign prostatic hyperplasia without lower urinary tract symptoms
CPT/HCPCS: 99214; G2211

== ENCOUNTER 2025-01-01 09:31 | Outpatient (REF) | payer OTHER, SELFPAY ==
--- OUTSIDE RECORDS SUMMARY | 2024-12-31 17:00 | XMS_ITS | Encounter Summary ---
Author Organization [employer] Address [address] [facility] 7t [place] [address] Care Team Providers Care Detasseling Crew Supervisor Name Role Phone Charlene Delgado MD Primary Care Provider + Encounter Details Date Type Department Care Team ([facility] st Contact Info) Description 12/31/2024 5:00 PM EDT Office Visit [facility] [address] [place] [address] [phone] Emerson Moy MD [address] [place] [address] [phone] Great toe pain, left (Primary Dx) Social History Tobacco Use Types Packs/Day Years [...] AM EDT documented as of this encounter Last Filed Vital Signs Vital Sign Reading Time Taken Comments Blood Pressure 148/89 12/31/2024 4:55 PM EDT Pulse 92 12/31/2024 4:55 PM EDT Temperature 36.6 C (97.8 F) 12/31/2024 4:55 PM EDT Respiratory Rate 14 12/31/2024 4:55 PM EDT Oxygen Saturation 99% 12/31/2024 4:55 PM EDT Inhaled Oxygen Concentration - - Weight 76.8 kg (169 lb 6.4 oz) 12/31/2024 4:55 P M EDT Height 157.5 cm (5' 2 ) 12/31/2024 4:55 PM EDT Body Mass Index 30.98 12/31/2024 4:55 PM EDT documented in this encounter Progress Notes * Emerson Moy MD - 12/31/2024 5:00 PM EDT Subjective History was provided by the patient and adult daughter. Matthew Abel is a 79 y.o. male who presents for evaluation of left great toe pain for 2 days. Exquisite pain and redness in the IP joint. Also has two small cuts in the calluses formed on the plantar aspect of MTP joint area of the great toe. Denies any trauma or fall. No discharge or bleeding. Denies F/C. Underlying hypertension, paroxysmal atrial fibrillation, T2 DM (Hgb A1c 7.3 in 06/2024), stage 4 CKD (BUN/Cr 41/2.25 in 07/2024), and history of NSTEMI few years ago. Objective Vitals: 12/31/24 1655 BP: (!) 148/89 BP Location: Left arm Patient Position: Sitting BP Cuff Size: Adult Pulse: 92 Resp: 14 Temp: 97.8 ??F (36.6 ??C) TempSrc: Oral SpO2: 99% Weight: 169 lb 6.4 oz (76.8 kg) Height: 5' 2 (1.575 m) Physical Exam Constitutional: Appearance: Normal appearance. HENT: Head: Normocephalic and atraumatic. Right Ear: External ear normal. Left Ear: External ear normal. Mouth/Throat: Pharynx: Oropharynx is clear. Eyes: Extraocular Movements: Extraocular movements intact. Conjunctiva/sclera: Conjunctivae normal. Pulmonary: Effort: Pulmonary effort is normal. Musculoskeletal: General: Swelling and tenderness present. Normal range of motion. Cervical back: Neck supple. Comments: Left great toe with edema, erythema, and tenderness at the IP joint of the great toe; no overlying ulceration; on the plantar aspect, there is callus formation at the MTP joint area of the great toe with 2 small cracks (~6mm each) Skin: General: Skin is warm and dry. Neurological: General: No focal deficit present. Mental Status: He is alert and oriented to person, place, and time. Psychiatric: Mood and Affect: Mood normal. Behavior: Behavior normal. Diagnoses and all orders for this visit: Great toe pain, left (Primary) - XR Toes 2+ Left; Future - predniSONE (Deltasone) 20 MG tablet; Take 2 tablets (40 mg) by mouth Once per day for 5 days. - CBC auto differential; Future - Uric acid; Future Patient presents to [facility] due to 2-day duration of left great toe pain Has edema/erythema/tenderness at the IP joint of the great toe Also with callus with cracks in the plantar aspect Underlying CKD stage 4 The area is not hot to touch Will check X-ray of the toe Check Uric Acid & CBC Prednisone 40mg daily for 5 days Potential adverse effects of the medication discussed, including elevation of BS Does not consume alcohol Will follow up after the labs and X-ray OTC moisturizing foot cream recommended Indications for UC/ER visit discussed Advised to contact the clinic if persistent or worsening symptoms documented in this encounter Plan of Treatment Scheduled Orders Name Type Priority Associated Diagnoses Orde r Schedule CBC auto differential Lab Routine Great toe pain, left Expected: 12/31/2024 (Approximate), Expires: 12/31/2025 Uric acid Lab Routine Great toe pain, left Expected: 12/31/2024 (Approximate), Expires: 12/31/2025 documented as of this encounter Procedures Procedure Name Priority Date/Time Associated Diagnosis Comments XR TOES 2+ VIEWS LEFT Routine 01/01/2025 10:03 AM EDT Great toe pain, left documented in this encounter Results * XR Toes 2+ Left (01/01/2025 10:03 AM EDT) Anatomical Region Laterality Modality Lower Extremities, Toes Left Radiogra phic Imaging 01/01/2025 10:0 3 AM EDT Narrative 01/01/2025 10:20 AM EDT [place] [address] XRay Report Signed Patient: Matthew Lo MR#: [id number] : 1945 Acct:[id number] Age/Sex: 79 / M ADM Date: 01/01/25 Loc: .[facility] Attending Dr: Charlene Delgado MD Ordering Physician: Emerson Moy MD Date of Service: 01/01/25 Procedure(s): XR toe LT min 2V Accession Number(s): [id number] cc: Charlene Delgado MD; Emerson Moy MD Reason for Exam: Patient with 2 day duration of left great toe pain at IP joint. EXAMINATION: XR TOES 2 OR MORE VIEWS LEFT HISTORY: Patient with 2 day duration of left great toe pain at IP joint. COMPARISON: Comparison is made with the prior examination of the left foot dated 07/01/2021. FINDINGS: Three views of the left great toe are submitted. Osseous mineralization is normal. There is no fracture or dislocation. The joint spaces are preserved. There are vascular calcifications. XR/XR toe LT min 2V IMPRESSION: Unremarkable examination of the left great toe. Electronically signed by: Osorio Ellis MD 01/01/2025 10:18 AM EDT RP Dictated By: Osorio Ellis MD Signed By: <Electronically signed by Osorio Ellis MD in OV> 01/01/25 1018 DD/ 1003 TD/TT: 01/01/25 1013 Electromechanical Equipment Assembler: Procedure Note Donotuseinterpreter, Image - 01/01/2025 [place] [address] XRay Report Signed Patient: Darshan Lo#: [id number] : 1945cct:[id number] Age/Sex: 79 / MADM Date: 01/01/25 Loc: [facility] Attending Dr: Charlene Delgado MD Ordering Physician: Emerson Moy MD Date of Service: 01/01/25 Procedure(s): XR toe LT min 2V Accession Number(s): [id number] cc: Charlene Delgado MD; Emerson Moy MD Reason for Exam: Patient with 2 day duration of left great toe pain at IPjoint. EXAMINATION: XR TOES 2 OR MORE VIEWS LEFT HISTORY: Patient with 2 day duration of left great toe pain at IP joint. COMPARISON: Comparison is made with the prior examination of the left foot dated 07/01/2021. FINDINGS: Three views of the left great toe are submitted. Osseous mineralization is normal. There is no fracture or dislocation. The joint spaces are preserved. There are vascular calcifications. XR/XR toe LT min 2V IMPRESSION: Unremarkable examination of the left great toe. Electronically signed by: Osorio Ellis MD 01/01/2025 10:18 AM EDT RP Dictated By: Osorio Ellis MD Signed By: <Electronically signed by Osorio Ellis MD in OV> 01/01/25 1018 DD/ 1003 TD/TT: 01/01/25 1013 Electromechanical Equipment Assembler: Emerson Moy MD IMG XR PROCEDURES Final Result documented in this encounter Visit Diagnoses Diagnosis Great toe pain, left- Primary documented in this encounter Additional Health Concerns Assessment Noted Time PHQ-9 Depression Total Score: 0 05/26/19 24 11:47 AM EDT documented as of this encounter Care Teams Detasseling Crew Supervisor Relationship Specialty Start Date End Date Charlene Delgado MD [address] [place] [address] PCP - General Family Medicine 01/25/19 documented as of this encounter
--- NOTE | ~2025-01-01 | XR_ITS ---
EXAMINATION: XR TOES 2 OR MORE VIEWS LEFT HISTORY: Patient with 2 day duration of left great toe pain at IP joint. COMPARISON: Comparison is made with the prior examination of the left foot dated 07/01/2021. FINDINGS: Three views of the left great toe are submitted. Osseous mineralization is normal. There is no fracture or dislocation. The joint spaces are preserved. There are vascular calcifications. XR/XR toe LT min 2V IMPRESSION: Unremarkable examination of the left great toe. Electronically signed by: Osorio Ellis MD 01/01/2025 10:18 AM EDT
--- OUTSIDE RECORDS SUMMARY | 2025-01-01 10:55 | XMS_ITS | Encounter Summary ---
Author Organization [employer] Address 75 [facility] 7t [place] [address] Care Team Providers Care Telecommunication Systems Designer Name Role Phone Charlene Delgado MD Primary Care Provider + Encounter Details Date Type Department Care Team (Late st Contact Info) Description 04/21/2022 Orders Only [facility] CHC MED & PEDS [address] [place] [address] Gabriela Hunt LPN Social History Tobacco Use [...] on filedocumented in this encounter Care Teams Telecommunication Systems Designer Relationship Specialty Start Date End Date Charlene Delgado MD [address] [place] [phone] PCP - General Family Medicine 01/25/19 documented as of this encounter
--- OUTSIDE RECORDS SUMMARY | 2025-01-01 10:55 | XMS_ITS | Clinical Summary ---
Author Organization [employer] Address [address] [place] [address] 7t [place] [address] Care Team Providers Care Manager User Experience Name Role Phone Stephani Talbot MD Primary [...] mL 11 024 2024 Active Continuous Glucose Operations Business Partner (FreeStyle Damaris 3 Jeannette) deviceIndicati ons:Type 2 diabetes mellitus with hyperglycemia, [...] days as directed for CGM 2 each Active Alcohol Swabs (Alcohol Prep) 70 % padsIndication s:Type 2 diabetes mellitus without complication, unspecified whether snf insulin use USE DIRECTED FOUR TIMES DAILY 100 each 025 Active apixaban (Eliquis) 5 MG tablet TAKE 1 TABLET BY MOUTH TWICE DAILY IN THE MORNING AND IN THE EVENING 180 tablet 025 Active clopidogrel (Plavix) 75 MG tablet TAKE 1 TABLET BY MOUTH EVERY EVENING 90 tablet 025 Active atorvastatin (Lipitor) 40 MG tablet TAKE 1 TABLET BY MOUTH EVERY EVENING 90 tablet 025 Active isosorbide mononitrate ER (Imdur) 60 MG 24 hr tabletIndicati ons:Coronary artery disease of [place] artery of [place] heart with stable angina pectoris TAKE 1 [...] CALL DOCTOR 15 mL 3 025 Active predniSONE (Deltasone) 20 MG tabletIndicati ons:Great toe pain, left Take 2 tablets (40 mg) by mouth Once per day for 5 days. 10 tablet 025 2024 Active insulin lispro (HumaLOG KWIKPEN) 100 UNIT/ML injection Use subcutaneous tid AC meals prn sliding scale: 150-200: 2u/ 201-250= 4u/251-300= 6u/ 301-350= 8u/351-400=10u/ab ove 400= 12u and call PCP 1 each 3 03/19/ 025 2024 Discontinued Active Problems Problem Noted [...] AND PLAN FOR TYPE 2 DIABETES MELLITUS ([facility]) WRITTEN ON 01/13/2023 4:09 PM BY STEPHANI TALBOT MD Uncontrolled, increase Trulicity to 1.5 mg /wk and FU with me in 6 wks Reschedule missed renetta with factory representative Cont Actos and obtain labs I had a lengthy discussion with him about importance of dietary compliance, avoid sugary drinks, sweet treats and carbs. Assessment & Plan (01/11/2024 10:29 AM EST): >>ASSESSMENT AND PLAN FOR TYPE 2 DIABETES MELLITUS ([facility]) WRITTEN ON 11/09/2023 12:40 PM BY DAGMAR [...] Uncontrolled, increase lantus 10 units and FU factory representative next month Resolved Problems Problem Noted Date Diagnosed Date Resolved Date Candidal balanitis 01/12/2023 01/12/2023 3 Clostridium difficile diarrhea 11/26/2022 06/29/2024 Abrasion of skin of left great toe 10/14/2022 06/29/2024 Encounters Date Type Department Care Team Description 12/31/2024 5:00 PM EDT Office Visit [facility] [address] [place] [phone] Emerson Moy MD Great toe pain, left (Primary Dx) 12/31/2024 Travel 12/31/2024 Telephone [facility] MEDICINE [address] [place] [address] Stephani Talbot MD Nurse Triage 12/14/2024 Refill [facility] MEDICINE [address] [place] [address] Stephani Talbot MD 11/20/2024 Refill [facility] MEDICINE [address] [place] [address] Stephani Talbot MD Gastroesophageal reflux disease, unspecified whether esophagitis present 11/03/2024 Refill [facility] MEDICINE [address] [place] [address] Stephani Talbot MD 10/26/2024 Telephone [facility] MEDICINE [address] [place] [address] Stephani Talbot MD Nurse Triage 10/04/2024 Refill [facility] MEDICINE [address] [place] [address] Stephani Talbot MD Coronary artery disease of [place] artery of [place] heart with stable angina pectoris ([facility]) from Last 3 Months Immunizations Immunization Administration [...] Mass Index 30.98 12/31/2024 4:55 PM EDT Plan of Treatment Health Maintenance [...] 10:03 AM EDT Great toe pain, left POCT GLYCATED HEMOGLOBIN, TOTAL Routine 06/29/2024 11:10 AM EDT Type 2 diabetes mellitus with hyperglycemia, with long-term current use of insulin ([facility]) DIABETES EYE EXAM Routine 04/11/2024 LIPID PANEL WITH REFLEX TO DIRECT LDL Routine 01/25/2023 9:47 AM EST Type 2 diabetes mellitus with hyperglycemia, with long-term current use of insulin ([facility]) from Last 3 Months or Most Recently Relevant to Health Maintenance Results * XR Toes 2+ Left (01/01/2025 10:03 AM EDT) Anatomical Region Laterality Modality Lower Extremities, Toes Left Radiogra psychiatric Imaging 01/01/2025 10:0 3 AM EDT Narrative 01/01/2025 10:20 AM EDT [address] [address] XRay Report Signed Patient: Matthew Lo MR#: [id number] : 1945 Acct:[id number] Age/Sex: 79 / M ADM Date: 01/01/25 Loc: [facility] Attending Dr: Stephani Talbot MD Ordering Physician: Emerson Moy MD Date of Service: 01/01/25 Procedure(s): XR toe LT min 2V Accession Number(s): [id number] cc: Stephani Talbot MD; Emerson Moy MD Reason for Exam: [...] 01/01/25 1018 DD/ 1003 TD/TT: 01/01/25 1013 Staffing Analyst: Procedure Note Donotuseinterpreter, Image - 01/01/[address] [address] XRay Report Signed Patient: Darshan Lo#: [id number] : 7Acct:[id number] Age/Sex: 79 / MADM Date: 01/01/25 Loc: [facility] Attending Dr: Stephani Talbot MD Ordering Physician: Emerson Moy MD Date of Service: 01/01/25 Procedure(s): XR toe LT min 2V Accession Number(s): [id number] cc: Stephani Talbot MD; Emerson Moy MD Reason for Exam: [...] the left great toe. Electronically signed by: Osoiro Ellis MD 01/01/2025 10:18 AM EDT RP Dictated By: Osorio Ellis MD Signed By: <Electronically signed by Osorio Ellis MD in OV> 01/01/25 1018 DD/ 1003 TD/TT: 01/01/25 1013 Staffing Analyst: Emerson Moy MD IMG XR PROCEDURES Final Result * (ABNORMAL) POCT HGB A1C (06/29/2024 11:10 [...] 9:47 AM EST) Triglycerides 97 <150 mg/dL [facility] Comment:Desirable Triglyceri de: less than 150 mg/dLBorderline High Triglyceride 150-199 mg/dLHigh Triglyceride: 200-499 mg/dLVery High Triglyceride: greater than or equal to 5OO mg/dL Cholesterol 147 <200 mg/dL [facility] Comment:Desirable Cholestero l: less than 200 mg/dLBorderline High Cholesterol: 200-239 mg/dLHigh Cholesterol: greater than 239 mg/dL LDL Cholesterol Calculated 96 <100 mg/dL [facility] Comment:Desirable LDL: less than 100 mg/dLNear Optimal/Above Optimal LDL: 110- 129 mg/dLBorderline High LDL: 130-159 mg/dLHigh LDL: 160-189 mg/dLVery High LDL: greater than or equal to 190 mg/dL HDL Cholesterol 32(L) >40 mg/dL [facility] Comment:Desirable HDL: great er than 40 mg/dL Note: This HDL assay may give artificially low results in patients with liver disease. Blood 01/25/2023 9:47 AM EST 01/25/2023 11:16 AM EST Stephani Talbot MD LAB BLOOD ORDERABLES Fin al Result [facility] [address] [place] [phone] from Last 3 Months or Most Recently Relevant to Health Maintenance Insurance [facility] [employer] (O D-SNP) [facility] [employer] (O D-SNP) Care Teams Manager User Experience Relationship Specialty Start Date End Date Stephani Talbot MD [address] [place] [phone] PCP - General Family Medicine 01/25/19
--- OUTSIDE RECORDS SUMMARY | 2025-01-01 10:55 | XMS_ITS | Encounter Summary ---
Author Organization [employer] Address 75 [facility] 7 [place] [address] Care Team Providers Care Test Puller Name Role Phone Charlene Delgado MD Primary Care Provider + Reason for Visit * Reason Onset Date Comments Nurse Triage 12/31/2024 Encounter Details Date Type Department Care Team ([facility] st Contact Info) Description 12/31/2024 Telephone [facility] MEDICINE [address] [place], [place] [phone] Charlene Delgado MD [address] [place], [place] [phone] Nurse Triage Social History Tobacco Use Types Packs/Day Years [...] encounter Miscellaneous Notes * Telephone Encounter - See Kessler - 12/31/2024 11:47 AM EDT Symptom: Toe Pain - Not From Injury Outcome: Schedule an urgent appointment (within 1 hour) or talk to a nurse or provider soon Reason: Severe pain now The caller accepted this outcome. Contact pt at [phone] (nepali) documented in this encounter Plan of Treatment Not on file documented as of this encounter Visit Diagnoses Not on filedocumented in this encounter Additional Health Concerns Assessment Noted Time PHQ-9 Depression Total Score: 0 05/26/19 24 11:47 AM EDT documented as of this encounter Care Teams Test Puller Relationship Specialty Start Date End Date Charlene Delgado MD [address] [place] [phone] PCP - General Family Medicine 01/25/19 documented as of this encounter
--- OUTSIDE RECORDS SUMMARY | 2025-01-01 10:55 | XMS_ITS | Encounter Summary ---
Author Organization [employer] Address 75 [facility] 7t [place] [address] Care Team Providers Care Bricklayer Apprentice Name Role Phone Charlene Delgado MD Primary Care Provider + Encounter Details Date Type Department Care Team (Latest Contact Info) Description 12/31/2024 Travel Social History Tobacco Use Types Packs/Day Years [...] documented as of this encounter Care Teams Bricklayer Apprentice Relationship Specialty Start Date End Date Charlene Delgado MD [address] [place] [phone] PCP - General Family Medicine 01/25/19 documented as of this encounter
--- OUTSIDE RECORDS SUMMARY | 2025-01-01 10:55 | XMS_ITS | Encounter Summary ---
Author Organization [employer] Address [address] [facility] 7 [place] [address] Care Team Providers Care Crew Team Member Name Role Phone Charlene Delgado MD Primary Care Provider + Reason for Visit * Reason Onset Date Comments Reschedule 07/19/2023 Encounter Details Date Type Department Care Team ([facility] st Contact Info) Description 07/19/2023 Telephone [facility] MEDICINE [address] [place], [place] [phone] Charlene Delgado MD [address] [place], [place] [phone] Reschedule Social History Tobacco Use Types Packs/Day [...] documented as of this encounter Care Teams Crew Team Member Relationship Specialty Start Date End Date Charlene Delgado MD [address] [place] [phone] PCP - General Family Medicine 01/25/19 documented as of this encounter
--- OUTSIDE RECORDS SUMMARY | 2025-01-01 10:56 | XMS_ITS | Encounter Summary ---
Author Organization [employer] Address [address] [facility] 7t [place] [address] Care Team Providers Care Cath Laboratory Technician Name Role Phone Charlene Delgado MD Primary Care Provider + Encounter Details Date Type Department Care Team ([facility] st Contact Info) Description 03/23/2022 Orders Only [facility] MEDICINE [address] [place], [place] [phone] Aimee Vogel LPN Social History Tobacco Use [...] on filedocumented in this encounter Care Teams Cath Laboratory Technician Relationship Specialty Start Date End Date Charlene Delgado MD [address] [place] [address] PCP - General Family Medicine 01/25/19 documented as of this encounter
--- OUTSIDE RECORDS SUMMARY | 2025-01-01 10:56 | XMS_ITS | Encounter Summary ---
Author Organization [employer] Address [address] [facility] 7t [place] [address] Care Team Providers Care Photographic Developer And Printer Name Role Phone Charlene Delgado MD Primary Care Provider + Reason for Visit * Reason Comments Med Refill Encounter Details Date Type Department Care Team ([facility] st Contact Info) Description 12/29/2022 Refill [facility] MEDICINE [address] [place], [place] [phone] Charlene Delgado MD [address] [place], [place] [phone] Coronary artery disease of [place] artery of [place] heart with stable angina pectoris (CMS/HCC) Social [...] Visit Diagnoses Diagnosis Coronary artery disease of [place] artery of [place] heart with stable angina pectoris documented in this encounter Care Teams Photographic Developer And Printer Relationship Specialty Start Date End Date Charlene Delgado MD [address] [place] [address] PCP - General Family Medicine 01/25/19 documented as of this encounter
--- OUTSIDE RECORDS SUMMARY | 2025-01-01 10:56 | XMS_ITS | Encounter Summary ---
Author Organization [employer] Address [address] [facility] 7t [place] [address] Care Team Providers Care Cinder Worker Name Role Phone Charlene Delgado MD Primary Care Provider + Encounter Details Date Type Department Care Team (Late st Contact Info) Description 10/12/2022 Orders Only [facility] CHC MED & PEDS [address] [place] [address] Gabriela Hunt LPN Social History Tobacco Use [...] on filedocumented in this encounter Care Teams Cinder Worker Relationship Specialty Start Date End Date Charlene Delgado MD [address] [place] [phone] PCP - General Family Medicine 01/25/19 documented as of this encounter
--- OUTSIDE RECORDS SUMMARY | 2025-01-01 10:56 | XMS_ITS | Encounter Summary ---
Author Organization [employer] Address 75 [facility] 7t [place] [address] Care Team Providers Care Senior Systems Programmer Name Role Phone Charlene Delgado MD Primary Care Provider + Encounter Details Date Type Department Care Team (Late st Contact Info) Description 03/23/2022 Orders Only [facility] CHC MED & PEDS [address] [place] [address] Gabriela Hunt LPN Social History Tobacco Use [...] on filedocumented in this encounter Care Teams Senior Systems Programmer Relationship Specialty Start Date End Date Charlene Delgado MD [address] [place] [phone] PCP - General Family Medicine 01/25/19 documented as of this encounter
--- OUTSIDE RECORDS SUMMARY | 2025-01-01 10:56 | XMS_ITS | Clinical Summary ---
Author Organization [facility] Address [address] [address] [address] [place] [address] Phone Care Team Providers Care School Library Media Specialist Name Role Phone Charlene Delgado MD Primary Care Provider [phone] Allergies No known active allergies Medications pioglitazone [...] in 6 wks Reschedule missed renetta with pole peeling machine operator Woo Pedraza and obtain labs I had [...] patient's age to complete this topic Insurance [facility] MCR ([id number]) [facility] MCR ([id number]) JACOB CHANEY [id number] Care Teams School Library Media Specialist Relationship Specialty Start Date End Date Charlene Delgado MD [address] [place] [phone] PCP - General 03/17/20
--- OUTSIDE RECORDS SUMMARY | 2025-01-01 10:56 | XMS_ITS | Encounter Summary ---
Author Organization [employer] Address [address] [facility] 7t [place] [address] Care Team Providers Care Bellman Driver Name Role Phone Charlene Delgado MD Primary Care Provider + Encounter Details Date Type Department Care Team (Late st Contact Info) Description 06/17/2022 Orders Only [facility] CHC MED & PEDS [address] [place] [address] Gabriela Hunt LPN Social History Tobacco Use [...] on filedocumented in this encounter Care Teams Bellman Driver Relationship Specialty Start Date End Date Charlene Delgado MD [address] [place] [phone] PCP - General Family Medicine 01/25/19 documented as of this encounter
--- OUTSIDE RECORDS SUMMARY | 2025-01-01 10:56 | XMS_ITS | Encounter Summary ---
Author Organization [employer] Address [address] [facility] 7t [place] [address] Care Team Providers Care Moving Picture Producer Name Role Phone Charlene Delgado MD Primary Care Provider + Encounter Details Date Type Department Care Team ([facility] st Contact Info) Description 12/31/2022 Abstract [facility] MEDICINE [address] [place], [place] [phone] Charlene Delgado MD [address] [place], [place] [phone] Social History Tobacco Use Types Packs/Day Years [...] on filedocumented in this encounter Care Teams Moving Picture Producer Relationship Specialty Start Date End Date Charlene Delgado MD [address] [place] [phone] PCP - General Family Medicine 01/25/19 documented as of this encounter
--- OUTSIDE RECORDS SUMMARY | 2025-01-01 10:56 | XMS_ITS | Encounter Summary ---
Author Organization [employer] Address [address] [facility] 7t [place] [address] Care Team Providers Care Ent Consultant Name Role Phone Charlene Delgado MD Primary Care Provider + Encounter Details Date Type Department Care Team (Late st Contact Info) Description 07/07/2022 Orders Only [facility] CHC MED & PEDS [address] [place] [address] Gabriela Hunt LPN Social History Tobacco Use [...] on filedocumented in this encounter Care Teams Ent Consultant Relationship Specialty Start Date End Date Charlene Delgado MD [address] [place] [phone] PCP - General Family Medicine 01/25/19 documented as of this encounter
--- OUTSIDE RECORDS SUMMARY | 2025-01-01 10:56 | XMS_ITS | Encounter Summary ---
Author Organization [employer] Address [address] [facility] 7t [place] [address] Care Team Providers Care Owner Manager Name Role Phone Charlene Delgado MD Primary Care Provider + Encounter Details Date Type Department Care Team ([facility] st Contact Info) Description 12/31/2022 Abstract [facility] MEDICINE [address] [place], [place] [phone] Charlene Delgado MD [address] [place], [place] [phone] Social History Tobacco Use Types Packs/Day Years [...] on filedocumented in this encounter Care Teams Owner Manager Relationship Specialty Start Date End Date Charlene Delgado MD [address] [place] [phone] PCP - General Family Medicine 01/25/19 documented as of this encounter
--- OUTSIDE RECORDS SUMMARY | 2025-01-01 10:56 | XMS_ITS | Encounter Summary ---
Author Organization [employer] Address [address] [facility] 7t [place] [address] Care Team Providers Care Computer Aided Design Designer Name Role Phone Charlene Delgado MD Primary Care Provider + Reason for Visit * Reason Comments Med Refill Encounter Details Date Type Department Care Team ([facility] st Contact Info) Description 04/12/2023 Refill [facility] MEDICINE [address] [place], [place] [phone] Charlene Delgado MD [address] [place], [place] [phone] Diabetes mellitus type 2, insulin dependent (CMS/HCC) [...] (HCC) documented in this encounter Care Teams Computer Aided Design Designer Relationship Specialty Start Date End Date Charlene Delgado MD [address] [place] [phone] PCP - General Family Medicine 01/25/19 documented as of this encounter
--- OUTSIDE RECORDS SUMMARY | 2025-01-01 10:56 | XMS_ITS | Encounter Summary ---
Author Organization [employer] Address [address] [facility] 7t [place] [address] Care Team Providers Care Cement Mason High[employer] Streets Name Role Phone Charlene Delgado MD Primary Care Provider + Encounter Details Date Type Department Care Team ([facility] st Contact Info) Description 12/31/2022 Abstract [facility] MEDICINE [address] [place], [place] [phone] Charlene Delgado MD [address] [place], [place] [phone] Social History Tobacco Use Types Packs/Day Years [...] on filedocumented in this encounter Care Teams Cement Mason [employer] Streets Relationship Specialty Start Date End Date Charlene Delgado MD [address] [place] [phone] PCP - General Family Medicine 01/25/19 documented as of this encounter
--- OUTSIDE RECORDS SUMMARY | 2025-01-01 10:56 | XMS_ITS | Encounter Summary ---
Author Organization [employer] Address [address] [facility] 7t [place] [address] Care Team Providers Care Manager Erp Name Role Phone Charlene Delgado MD Primary Care Provider + Encounter Details Date Type Department Care Team (Late st Contact Info) Description 05/20/2022 Orders Only [facility] CHC MED & PEDS [address] [place] [address] Gabriela Hunt LPN Social History Tobacco Use [...] on filedocumented in this encounter Care Teams Manager Erp Relationship Specialty Start Date End Date Charlene Delgado MD [address] [place] [phone] PCP - General Family Medicine 01/25/19 documented as of this encounter
[2025-01-01 11:13] LABS: Appearance Urine Clear; Glucose Urine UA >=1000 mg/dL (Negative); PH 5.5 (5.0-9.0); Specific Gravity - Urine 1.020 (1.005-1.025); UMIC TRIGGER UA YES
[2025-01-01 11:36] LABS: Hematocrit 38.5 % (42.0-52.0); Hemoglobin 12.4 g/dl (14.0-18.0); Imm Gran Abs Auto 0.02 X10*3/uL (0.00-0.03); Imm Gran Pct Auto 0.3 % (0.0-0.4); Lymphocytes Absolute Auto 0.5 X10*3/uL (1.2-4.9); MANUAL DIFF FLAG SCAN; Mean Corpuscular HGB Conc 32.2 g/dl (31.0-36.0); Mean Corpuscular Hemoglobin 31.2 pg (27.0-33.0); Mean Corpuscular Volume 96.7 fL (80.0-98.0); NRBC Abs Auto 0.000 X10*3/uL (0.0-0.012); NRBC Pct Auto 0.0 /100WBC (0.0-0.2); Platelet Count 145 X10*3/uL (160-400); Red Blood Count 3.98 X10*6/uL (4.60-5.80); SCAN SMEAR FLAG 1; White Blood Count 8.0 X10*3/uL (4.8-10.8)
[2025-01-01 12:04] LABS: Blood Urea Nitrogen 48 mg/dL (9-16); Estimated Glomerular Filt Rate 23
[2025-01-01 12:05] LABS: Cholesterol 151 mg/dL (<200); HDL Cholesterol 35 mg/dL (>40); Triglycerides 166 mg/dL (<150)
[2025-01-01 12:11] LABS: Microalbum/Creatinine Ratio Ur 530.4 ug/mg cr (<30)
[2025-01-01 12:12] LABS: Parathyroid Hormone Intact 166.9 pg/mL (8.7-77.1)
[2025-01-01 13:03] LABS: Uric Acid 6.3 mg/dL (3.4-7.0)
[2025-01-01 13:19] LABS: Alanine Aminotransferase 18 U/L (0-40); Albumin Level 4.1 g/dL (3.5-5.0); Alkaline Phosphatase 163 U/L (39-117); Anion Gap 12 (12-20); Aspartate Amino Transferase 32 U/L (5-37); Blood Urea Nitrogen 46 mg/dL (9-16); Calcium 8.8 mg/dL (8.4-10.2); Carbon Dioxide 23 mmol/L (22-29); Chloride 106 mmol/L (96-108); Estimated Glomerular Filt Rate 22; Potassium 5.1 mmol/L (3.3-5.1); Sodium 136 mmol/L (135-145); Total Protein 7.3 g/dL (6.5-8.0)
[2025-01-01 13:51] LABS: Reflex LDLD? No
== END 2025-01-01 09:32 | disposition home or self-care (01) ==
LOC: HO.HHCL 09:31
PROVIDERS: Internal Medicine Hypertension Specialist; PCP Internal Medicine; Referring Provider Family Medicine; Visit Provider Internal Medicine
DX: M79.675 Pain in left toe(s) (principal); E11.22 Type 2 diabetes mellitus with diabetic chronic kidney disease; E11.65 Type 2 diabetes mellitus with hyperglycemia; N18.4 Chronic kidney disease, stage 4 (severe); N20.0 Calculus of kidney; R39.15 Urgency of urination; Z79.4 Long term (current) use of insulin
CPT/HCPCS: 36415; 73660; 80053; 80061; 81001; 82043; 82306; 82565; 82570; 83970; 84520; 84550; 85025

== ENCOUNTER → 2025-01-01 10:03 | Outpatient (BNV) | payer OTHER, SELFPAY | PROVIDERS: PCP Internal Medicine; Referring Provider Family Medicine; Visit Provider Radiology Diagnostic Radiology | DX: M79.675 Pain in left toe(s) (principal) | CPT/HCPCS: 73660 ==